=== PATIENT | female | born 1955 | race Caucasian/White ===

== ENCOUNTER 2022-05-14 14:21 | Inpatient (IN) ==
[2022-05-14] MEDS ORDERED: PIPERACILLIN/TAZOBACTAM 4.5 GM/120 ML BAG IV ONE (15:01)
[2022-05-14] MEDS ORDERED: VANCOMYCIN HCL 2,000 MG in SODIUM CHLORIDE 0.9% 500 ML IV ONE (15:01)
[2022-05-14] MEDS ORDERED: VANCOMYCIN CONSULT ACTIVE PRN (15:01)
--- NOTE | 2022-05-14 15:13 | Emergency Department Note ---
Impression & Plan Osteomyelitis, Decubitus ulcer of sacral area, Acute hyponatremia, End-stage renal disease (ESRD) ED Provider Note NAME: DARRELL ZHU AGE: 66 SEX: F : 1955 ARRIVES VIA: Ambulance INFORMANT: Patient, ED PROVIDER(S): Jesus Andersen DO CHIEF COMPLAINT: Weakness HPI: The patient is a 66-year-old female who presented to the emergency department for an evaluation of sacral pain. The patient has a history of osteomyelitis of her sacrum and coccyx. She was treated initially locally but then transferred to [facility]. The patient returns today because of ongoing symptoms and worsening symptoms. She does have a history of renal failure and receives dialysis. She denies having any vomiting. She describes no abdominal pain. She has had no recent trauma but states she has generalized weakness. She does have a history of an ostomy. She notices no blood in her ostomy bag. She has not been seen by her family doctor recently. She states symptoms are moderate to severe. She has been receiving IV antibiotics 3 times a week. ROS: See above HPI for pertinent positives & negatives. A total of 10 systems reviewed and were otherwise negative. PAST MEDICAL HISTORY: See Below PAST SURGICAL HISTORY: See Below FAMILY HISTORY: See Below SOCIAL HISTORY: See Below HOME MEDICATIONS: See Below ALLERGIES: See Below VITALS: See Below PHYSICAL EXAMINATION: GENERAL: Patient is awake and alert. The patient is somewhat anxious appearing. EYES: The conjunctivae are clear. The pupils are round and reactive. EARS, NOSE, MOUTH AND THROAT: The nose is without any evidence of any deformity. NECK: The neck is nontender and supple. RESPIRATORY: Normal respiratory effort is noted there is no evidence of wheezing rhonchi or rales CARDIOVASCULAR: Regular rate and rhythm noted there no murmurs rubs or gallops normal S1 normal S2. GASTROINTESTINAL: The abdomen is soft. Abdomen is nontender. MUSCULOSKELETAL/EXTREMITIES: There is no evidence of gross deformity full range of motion is noted in the hips and shoulders. SKIN: Skin is warm and dry. There is pedal edema bilaterally. There is a dressing over the sacrum. When removed this reveals a very deep and necrotic appearing sacral decubitus. NEUROLOGIC: Patient is awake alert and oriented x3 MEDICAL DECISION MAKING: The patient is a 66-year-old female who presented to the emergency department for an evaluation of sacral pain. The patient has a history of end-stage renal disease requiring dialysis but also has a history of sacral decubitus ulcer and underlying osteomyelitis. She was treated with IV antibiotics at [facility]. She was discharged to home. She was receiving IV antibiotics 3 times a week. She states her symptoms are worsening. She presented with hypotension. She was treated with a small fluid bolus and IV antibiotics in emergency department. I discussed the patient's laboratory and radiographic studies with her. [facility]. They have agreed to evaluate the patient in the emergency department for further management and disposition. Triage Nursing notes reviewed. Prior medical records reviewed Vital Signs: reviewed and remarkable for hypotension and tachycardia. Differential diagnosis: Cellulitis, abscess, MRSA infection, DVT, necrotizing fasciitis, dermatitis, d rug eruption, allergic reaction, as well as other pathologies. ER treatment provided: See below Diagnostics interpreted by me: ECG: EKG was obtained in the emergency department. My interpretation is sinus tachycardia 109 bpm. Left bundle branch block pattern was noted. There were no PVCs. This was compared to a tracing from November 17, 2014. The bundle branch is new compared to the earlier tracing. Cardiac Monitoring: An order was placed for continuous cardiac monitoring. The monitor shows a rate of 105 bpm with sinus tachycardia. Laboratory studies: As stated above and show below. Imaging studies: See below Consultation(s): I discussed this case with Barbara who is on-call for the [facility] hospitalist group. Discussed this case with Claudia who is on-call for the general surgical group. ED COURSE: Procedures: none Critical Care: I have personally spent greater than 35 minutes of critical care time in the direct management of this patient. This includes bedside care, interpretation of diagnostic studies, and testing, discussion with consultants, patient, and family members, and other required patient management activities. This 35 minutes is in excess of all separately billable procedures. Past Med/Surg History Medical History Accelerating angina Anemia due to stage 5 chronic kidney disease treated with erythropoietin Atherosclerosis of [place] arteries of extremities with rest pain, left leg Cancer of anorectal junction Cat bite of left forearm Cervical cancer Chronic lower GI bleeding Chronic radiation dermatitis Chronic stable angina CKD (chronic kidney disease) stage 5, GFR less than 15 ml/min CKD, patient preferred treatment modality in-center hemodialysis Closed fracture of phalanx of left fifth toe Colonic polyp Coronary artery disease Demand ischemia of myocardium DM type 2 with diabetic peripheral neuropathy Encounter for colorectal cancer screening 02/10/07 ESRD (end stage renal disease) on dialysis Heart failure with preserved ejection fraction, borderline, class II History of treatment of incomplete miscarriage x3 History of hyperbaric oxygen therapy 07/2011, 11/2011, 60 treatments. History of rectal or anal cancer HTN (hypertension) Hx of barium enema Hx of mammogram Hyperlipidemia Hyperparathyroidism Hyponatremia Hypothyroidism Injection of surface of both eyes Injection of eye drug, Lucentis 0.3mg by Dr. Taveras Iron deficiency anemia due to chronic blood loss Major depressive disorder Melanoma of back Myocardial infarction Non-compliance Other pancytopenia PAD (peripheral artery disease) Proliferative diabetic retinopathy of both eyes without macular edema associated with diabetes mellitus due to underlying condition Radiation proctitis Retinal edema Retinal lesion S/P arteriogram of extremity Thrombocytopenia Type 2 diabetes mellitus Uncontrolled type 2 diabetes mellitus with retinopathy of left eye, with long- term current use of insulin Uterine cancer Vitreous hemorrhage of right eye Surgical History H/O cataract removal with insertion of prosthetic lens H/O colonoscopy adhesions and radiation colitis precluded advancing scope through the sigmoid. Exam discontinued. H/O eye surgery partial removal of eye fluid, bilateral H/O laparoscopy appendectomy History of breast surgery left breast, 1982 History of insertion of tunneled central venous catheter (CVC) with port History of revascularization procedure of lower extremity Hx of angioplasty Hx of biopsy benign right breast biopsy about 20 years ago. Hx of colonoscopy 08/31/2017, multiple colonic angioectasias from prior radiation/narrowed and scarred left colon from multiple prior surgeries/colonoscopy flexible proximal diagnositic performed by Chandler Gill. S/P laser trabeculoplasty of eye S/P tonsillectomy Status post total abdominal hysterectomy Social History Smoking Status: Never smoker Hx Alcohol Use: No Hx Substance Use: No Preferred Language: Slovenian Communication Ability: Effective Beliefs That Will Affect Care: None marital status: Current Living Situation: Family current occupational status: employed current occupation: has own salon How many Children do You have: 1 How many Children do You have Comment: special needs child Feels Safe at Home: Yes caffeine: No Allergies Allergies Allergy/AdvReac Type Severity Reaction Status Date / Time cephalexin Allergy Unknown HIVES Verified 02/15/22 11:16 fluorescein Allergy Unknown EYE Verified 02/15/22 11:16 SWELLING AND THROAT SWELLING lisinopril Allergy Unknown "CHOKING" Verified 02/15/22 11:16 meperidine Allergy Unknown NAUSEA Verified 02/15/22 11:16 Penicillins Allergy Unknown Rash Verified 05/14/22 15:16 Home Meds Home Medications Medication Instructions Recorded Confirmed acetaminophen 650 mg 650 mg PO Q8H 02/15/22 02/15/22 tablet,extended release (Tylenol Arthritis Pain) atorvastatin 40 mg tablet 40 mg PO DAILY 02/15/22 02/15/22 brimonidine 0.2 %-timolol 0.5 % 1 drp ophthalmic (eye) BID 02/15/22 02/15/22 eye drops (Combigan) dulaglutide 0.75 mg/0.5 mL mg subcut .weekly 02/15/22 02/15/22 subcutaneous pen injector ([facility]) furosemide 80 mg tablet 80 mg PO DAILY 02/15/22 02/15/22 gabapentin 300 mg capsule 300 mg PO DAILY 02/15/22 02/15/22 hydroxyzine HCl 10 mg tablet 10 mg PO TID PRN 02/15/22 02/15/22 insulin aspart U-100 100 unit/mL 1 sliding scale dose subcut 02/15/22 02/15/22 subcutaneous solution (Novolog USEASDIRECTD U-100 Insulin aspart) insulin glargine 100 unit/mL (3 42 unit subcut DAILY 02/15/22 02/15/22 mL) subcutaneous pen (Basaglar KwikPen U-100 Insulin) latanoprost 0.005 % eye drops 1 drp ophthalmic (eye) QPM 02/15/22 02/15/22 levothyroxine 137 mcg capsule 137 mcg PO DAILY 02/15/22 02/15/22 mesalamine 1,000 mg rectal MO 02/15/22 02/15/22 suppository metoprolol succinate 25 mg 25 mg PO DAILY 02/15/22 02/15/22 tablet,extended release 24 hr nitroglycerin 0.4 mg sublingual 0.4 mg sublingual Q5M PRN 02/15/22 02/15/22 tablet omeprazole 20 mg capsule,delayed 20 mg PO DAILY 02/15/22 02/15/22 release ondansetron 4 mg disintegrating 4 mg PO PRN 02/15/22 02/15/22 tablet ropinirole 0.25 mg tablet 0.25 mg PO .QHS 02/15/22 02/15/22 Previous Rx's Medication Instructions Recorded collagenase clostridium histo. 250 1 applic topical DAILY #90 grams 02/15/22 unit/gram topical ointment (Santyl) Results & Data (ED) Vital Signs Vital Signs - 24 hr 05/14/22 14:35 05/14/22 15:14 05/14/22 15:14 Temperature 36.6 C Temperature Source Oral Pulse Rate 110 H 110 H Pulse Rate from SpO2 Sensor Pulse Rhythm Regular Irregular Pulse Strength Normal Respiratory Rate 18 20 Respiratory Effort / Characteristics Non-Labored Non-Labored Respiratory Depth Normal Respiratory Pattern Regular Blood Pressure 97/57 L Blood Pressure Mean 70 Pulse Oximetry 89 L 96 Oxygen Delivery Method Room Air Nasal Cannula Oxygen Flow Rate 0 2 Sepsis Recent Fever Within 48 Hours No Sepsis New/Unexplained Change in Mental Status N/A Sepsis Action Taken by Nursing No Action Required 05/14/22 14:50 05/14/22 15:00 05/14/22 15:10 Temperature Temperature Source Pulse Rate 110 H 109 H 109 H Pulse Rate from SpO2 Sensor 110 H 109 H 109 H Pulse Rhythm Pulse Strength Respiratory Rate 17 18 18 Respiratory Effort / Characteristics Respiratory Depth Respiratory Pattern Blood Pressure Blood Pressure Mean Pulse Oximetry 89 L 96 98 Oxygen Delivery Method Oxygen Flow Rate Sepsis Recent Fever Within 48 Hours Sepsis New/Unexplained Change in Mental Status Sepsis Action Taken by Nursing 05/14/22 15:20 05/14/22 15:30 05/14/22 15:40 Temperature Temperature Source Pulse Rate 111 H 108 H 107 H Pulse Rate from SpO2 Sensor 111 H 108 H 107 H Pulse Rhythm Pulse Strength Respiratory Rate 20 15 17 Respiratory Effort / Characteristics Respiratory Depth Respiratory Pattern Blood Pressure Blood Pressure Mean Pulse Oximetry 100 99 100 Oxygen Delivery Method Oxygen Flow Rate Sepsis Recent Fever Within 48 Hours Sepsis New/Unexplained Change in Mental Status Sepsis Action Taken by Nursing 05/14/22 15:50 05/14/22 16:00 05/14/22 16:10 Temperature Temperature Source Pulse Rate 106 H 106 H 105 H Pulse Rate from SpO2 Sensor 105 H 107 H 105 H Pulse Rhythm Pulse Strength Respiratory Rate 18 16 16 Respiratory Effort / Characteristics Respiratory Depth Respiratory Pattern Blood Pressure 100/66 Blood Pressure Mean 77 Pulse Oximetry 100 100 100 Oxygen Delivery Method Oxygen Flow Rate Sepsis Recent Fever Within 48 Hours Sepsis New/Unexplained Change in Mental Status Sepsis Action Taken by Long Term Medications Current Medication List: was personally reviewed by me Laboratory Data Attestation: I reviewed the patient's lab results. Result diagrams: 05/14/22 14:25 05/14/22 14:25 Lab Results 05/14/22 05/14/22 05/14/22 Range/Units 14:25 14:25 14:25 WBC 13.01 H (4.8-10.8) K/ul RBC 2.91 L (3.93-5.22) M/uL Hgb 8.8 L (12.0-16.0) g/dl Hct 27.7 L (34.1-44.9) % MCV 95.2 (80.0-100.0) fL MCH 30.2 (25.0-34.0) pg MCHC 31.8 L (32.0-36.0) g/dL RDW Std Deviation 78.8 H (36.4-46.3) fL RDW Coeff of Josh 23.3 H (11.5-14.5) % Plt Count 104 L (130-400) K/uL MPV 10.7 (9.4-12.3) fL Immature Gran % (Auto) 1.2 % Neut % (Auto) 84.5 % Lymph % (Auto) 7.5 % [place] % (Auto) 5.8 % Eos % (Auto) 0.6 % Baso % (Auto) 0.4 % Neut # (Auto) 11.00 H (1.4-6.5) K/uL Lymph # (Auto) 0.97 L (1.2-3.4) K/uL [place] # (Auto) 0.75 (0.24-0.82) K/uL Eos # (Auto) 0.08 (0-0.50) K/uL Baso # (Auto) 0.05 (0-0.2) K/uL Immature Gran # (Auto) 0.16 H (0.00-0.02) K/uL Absolute Nucleated RBC 0.03 H (0-0) K/uL Nucleated RBC % (auto) 0.2 % Polychromasia 1+ Anisocytosis Present Macrocytosis Present Tear Drop Cells 1+ Echinocytes 1+ PT 19.3 H (9.0-12.0) Seconds INR 1.9 H (0.9-1.1) APTT 44.6 H (21.0-31.0) Seconds PTT Ratio 1.6 Sodium 127 L (136-145) mmol/L Potassium 5.1 (3.5-5.1) mmol/L Chloride 94 L (98-107) mmol/L Carbon Dioxide 22 (21-32) mmol/L Anion Gap 11 (3-11) BUN 22 (6-23) mg/dl Creatinine 3.89 H (0.6-1.2) mg/dl Est Cr Clr Drug Dosing 14.9 ml/min Est GFR ( Amer) 13.1 ml/min Est GFR (Non-Af Amer) 11.3 ml/min BUN/Creatinine Ratio 5.7 L (10-20) Glucose 269 H (70-99(Fasting)) mg/dl Calcium 8.2 L (8.5-10.1) mg/dl Magnesium 1.8 (1.7-2.4) mg/dl Total Bilirubin 1.1 H (0.2-1.0) mg/dl AST 63 H (13-39) U/L ALT 21 (7-52) U/L Alkaline Phosphatase 482 H (34-104) U/L Troponin I High Sens 35.4 H (0-14) pg/ml Total Protein 5.8 L (6.0-8.3) gm/dl Albumin 2.1 L (3.4-5.0) gm/dl Globulin 3.7 (2.5-4.0) gm/dl Albumin/Globulin Ratio 0.6 L (0.9-2) Procalcitonin (0-0.5) ng/ml 05/14/22 Range/Units 14:25 WBC (4.8-10.8) K/ul RBC (3.93-5.22) M/uL Hgb (12.0-16.0) g/dl Hct (34.1-44.9) % MCV (80.0-100.0) fL MCH (25.0-34.0) pg MCHC (32.0-36.0) g/dL RDW Std Deviation (36.4-46.3) fL RDW Coeff of Josh (11.5-14.5) % Plt Count (130-400) K/uL MPV (9.4-12.3) fL Immature Gran % (Auto) % Neut % (Auto) % Lymph % (Auto) % [place] % (Auto) % Eos % (Auto) % Baso % (Auto) % Neut # (Auto) (1.4-6.5) K/uL Lymph # (Auto) (1.2-3.4) K/uL [place] # (Auto) (0.24-0.82) K/uL Eos # (Auto) (0-0.50) K/uL Baso # (Auto) (0-0.2) K/uL Immature Gran # (Auto) (0.00-0.02) K/uL Absolute Nucleated RBC (0-0) K/uL Nucleated RBC % (auto) % Polychromasia Anisocytosis Macrocytosis Tear Drop Cells Echinocytes PT (9.0-12.0) Seconds INR (0.9-1.1) APTT (21.0-31.0) Seconds PTT Ratio Sodium (136-145) mmol/L Potassium (3.5-5.1) mmol/L Chloride (98-107) mmol/L Carbon Dioxide (21-32) mmol/L Anion Gap (3-11) BUN (6-23) mg/dl Creatinine (0.6-1.2) mg/dl Est Cr Clr Drug Dosing ml/min Est GFR ( Amer) ml/min Est GFR (Non-Af Amer) ml/min BUN/Creatinine Ratio (10-20) Glucose (70-99(Fasting)) mg/dl Calcium (8.5-10.1) mg/dl Magnesium (1.7-2.4) mg/dl Total Bilirubin (0.2-1.0) mg/dl AST (13-39) U/L ALT (7-52) U/L Alkaline Phosphatase (34-104) U/L Troponin I High Sens (0-14) pg/ml Total Protein (6.0-8.3) gm/dl Albumin (3.4-5.0) gm/dl Globulin (2.5-4.0) gm/dl Albumin/Globulin Ratio (0.9-2) Procalcitonin 6.68 H (0-0.5) ng/ml Administered Medications Daptomycin 400 mg/ Syringe 8 mls @ 4 mls/min IV Q24H ROSA M; Protocol Stop: 05/16/22 15:14 Last Admin: 05/14/22 16:07 Dose: 4 mls/min Documented By: ELIZABETH Discontinued Medications Piperacillin Sod/Tazobactam Sod (Zosyn) 4.5 gm in 120 mls @ 240 mls/hr IV NOW ONE Stop: 05/14/22 15:30 Last Admin: 05/14/22 16:07 Dose: 240 mls/hr Documented By: ELIZABETH Imaging Data Radiologist's Impression: Abdomen/Pelvis CT 05/14/22 14:58 CT abd pelvis wo con CLINICAL HISTORY: sacral wound TECHNIQUE: Helical axial images of the abdomen and pelvis were obtained. Automated dose lowering techniques and/or adjustment according to patient size were utilized for this exam. This exam was performed without intravenous contrast. CT DOSE: 840.85 mGy.cm COMPARISON: None available at the time of this dictation. FINDINGS: Lower chest: Bilateral pleural effusions are seen with underlying atelectasis. Cardiomegaly is seen. Three-vessel atherosclerosis is seen in the coronaries. Liver: Unremarkable. No focal lesions are seen. Gallbladder and biliary tree: No calcified gallstones. Normal caliber wall. No intra- or extrahepatic biliary ductal dilation. Pancreas: Unremarkable, no focal lesions. Spleen: Calcifications are noted in the spleen compatible with prior granulomatous disease. Adrenals: Unremarkable. Kidneys and ureters: Perinephric stranding is noted bilaterally. Bladder: Limited evaluation due to underdistention. Reproductive organs: Patient is status post hysterectomy. Bowel: A double barreled colostomy is noted in the right lower quadrant. Patient is status post appendectomy. Lymph nodes Retroperitoneal: Unremarkable. Pelvic: Unremarkable. Mesenteric: Unremarkable. Peritoneum: Mild ascites is seen. Vessels: Atherosclerotic calcifications are seen. Abdominal wall: Prominent body wall edema is seen. There is a large sacral ulcer which extends to the bone and has significant surrounding swelling. Bones: There is erosion of the distal sacrum with a few bony fragments noted. Degenerative changes are seen elsewhere in the skeleton. IMPRESSION: 1. Large sacral ulcer with erosion of the sacral bone, underlying osteomyelitis is likely. 2. Mild ascites and prominent body wall edema. 3. Bilateral pleural effusions with associated atelectasis. Cardiomegaly. 4. Additional findings as above. ACT 112: Negative or not required by law. Electronically signed by: Eriberto Wiley M.D. 05/14/2022 3:43 PM Chest X-Ray 05/14/22 14:58 XR chest 1V portable CLINICAL HISTORY: SEPSIS TECHNIQUE: Single frontal radiograph of the chest was obtained. Comparison: Comparison is made to chest radiograph 11/17/2014 FINDINGS: Right venous catheter is seen with the tip at the cavoatrial junction. The cardiomediastinal silhouette is obscured. Multifocal airspace opacities are seen. No pneumothorax is seen, pleural effusions cannot be excluded. IMPRESSION: Multifocal airspace opacities may represent atelectasis, pneumonia, and/or aspiration. Bilateral small pleural effusions cannot be excluded. ACT 112: Negative or not required by law. Electronically signed by: Eriberto Wiley M.D. 05/14/2022 4:10 PM Discharge Plan Visit Data Chief Complaint: Wound ED Provider: Jesus Andersen Discharge Problem: Osteomyelitis, Decubitus ulcer of sacral area, Acute hyponatremia, End-stage renal disease (ESRD) Patient Disposition: Being Evaluated by Hospitalist Forms Stand Alone Forms: My [facility] [employer] Prescriptions Prescriptions: No Action David Daugherty U-100 Insulin 100 unit/mL (3 mL) insulin pen 42 unit subcut DAILY brimonidine-timolol [Combigan] 0.2-0.5 % drops 1 drp ophthalmic (eye) BID atorvastatin 40 mg tablet 40 mg PO DAILY furosemide 80 mg tablet 80 mg PO DAILY gabapentin 300 mg capsule 300 mg PO DAILY hydroxyzine HCl 10 mg tablet 10 mg PO TID PRN latanoprost 0.005 % drops 1 drp ophthalmic (eye) QPM levothyroxine 137 mcg capsule 137 mcg PO DAILY mesalamine 1,000 mg suppository MO metoprolol succinate 25 mg tablet extended release 24 hr 25 mg PO DAILY nitroglycerin 0.4 mg tablet, sublingual 0.4 mg sublingual Q5M PRN Rx Instructions: do not exceed 3 doses per episode insulin aspart U-100 [Novolog U-100 Insulin aspart] 100 unit/mL solution 1 sliding scale dose subcut USEASDIRECTD omeprazole 20 mg capsule,delayed release(DR/EC) 20 mg PO DAILY ondansetron 4 mg tablet,disintegrating 4 mg PO PRN ropinirole 0.25 mg tablet 0.25 mg PO .QHS Trulicity 0.75 mg/0.5 mL pen injector subcut .weekly acetaminophen [Tylenol Arthritis Pain] 650 mg tablet extended release 650 mg PO Q8H Santyl 250 unit/gram ointment 1 applic topical DAILY Qty: 90 1RF Rx Instructions: apply to deep wounds daily Referrals Referrals: Jona Taveras DO [Outside Practitioners] - : Osteomyelitis Qualifiers: Osteomyelitis type: unspecified type Osteomyelitis location: unspecified site Qualified Code(s): M86.9 - Osteomyelitis, unspecified Decubitus ulcer of sacral area Qualifiers: Pressure injury stage: stage 4 Qualified Code(s): L89.154 - Pressure ulcer of sacral region, stage 4
[2022-05-14] MEDS ORDERED: DAPTOmycin 400 MG in SYRINGE 0 ML IV SCH (15:15)
[2022-05-14 15:31] LABS: INR 1.9 (0.9-1.1); Partial Thromboplastin Ratio 1.6; Partial Thromboplastin Time 44.6 Seconds (21.0-31.0); Prothrombin Time 19.3 Seconds (9.0-12.0)
--- NOTE | 2022-05-14 15:46 | CT Scan Report ---
CT abd pelvis wo con CLINICAL HISTORY: sacral wound TECHNIQUE: Helical axial images of the abdomen and pelvis were obtained. Automated dose lowering tech niques and/or adjustment according to patient size were utilized for this exam. This exam was perfor med without intravenous contrast. CT DOSE: 840.85 mGy.cm COMPARISON: None available at the time of this dictation. FINDINGS: Lower chest: Bilateral pleural effusions are seen with underlying atelectasis. Cardiomegaly is seen. Three-vessel atherosclerosis is seen in the coronaries. Liver: Unremarkable. No focal lesions are seen. Gallbladder and biliary tree: No calcified gallstones. Normal caliber wall. No intra- or extrahepatic biliary ductal dilation. Pancreas: Unremarkable, no focal lesions. Spleen: Calcifications are noted in the spleen compatible with prior granulomatous disease. Adrenals: Unremarkable. Kidneys and ureters: Perinephric stranding is noted bilaterally. Bladder: Limited evaluation due to underdistention. Reproductive organs: Patient is status post hysterectomy. Bowel: A double barreled colostomy is noted in the right lower quadrant. Patient is status post appen dectomy. Lymph nodes Retroperitoneal: Unremarkable. Pelvic: Unremarkable. Mesenteric: Unremarkable. Peritoneum: Mild ascites is seen. Vessels: Atherosclerotic calcifications are seen. Abdominal wall: Prominent body wall edema is seen. There is a large sacral ulcer which extends to the bone and has significant surrounding swelling. Bones: There is erosion of the distal sacrum with a few bony fragments noted. Degenerative changes ar e seen elsewhere in the skeleton. IMPRESSION: 1. Large sacral ulcer with erosion of the sacral bone, underlying osteomyelitis is likely. 2. Mild ascites and prominent body wall edema. 3. Bilateral pleural effusions with associated atelectasis. Cardiomegaly. 4. Additional findings as above. ACT 112: Negative or not required by law. Electronically signed by: Eriberto Wiley M.D. 05/14/2022 3:43 PM
[2022-05-14 15:47] LABS: Hematocrit (blood only) 27.7 % (34.1-44.9); Hemoglobin 8.8 g/dl (12.0-16.0); Mean Corpuscular Hemoglobin 30.2 pg (25.0-34.0); Mean Corpuscular Hgb Conc 31.8 g/dL (32.0-36.0); Mean Corpuscular Volume 95.2 fL (80.0-100.0); Mean Platelet Volume 10.7 fL (9.4-12.3); Nucleated RBC # (auto) 0.03 K/uL (0-0); Nucleated RBC % (auto) 0.2 %; Platelet Count 104 K/uL (130-400); RDW Coefficient of Variation 23.3 % (11.5-14.5); RDW Standard Deviation 78.8 fL (36.4-46.3); Red Blood Count 2.91 M/uL (3.93-5.22); White Blood Count 13.01 K/ul (4.8-10.8)
[2022-05-14 15:48] LABS: Anisocytosis Present; Basophils # (auto) 0.05 K/uL (0-0.2); Basophils % (auto) 0.4 %; Echinocytes 1+; Eosinophils # (auto) 0.08 K/uL (0-0.50); Eosinophils % (auto) 0.6 %; Immature Granulocytes # (auto) 0.16 K/uL (0.00-0.02); Immature Granulocytes % (auto) 1.2 %; Lymphocytes # (auto) 0.97 K/uL (1.2-3.4); Lymphocytes % (auto) 7.5 %; Macrocytosis Present; Monocytes # (auto) 0.75 K/uL (0.24-0.82); Monocytes % (auto) 5.8 %; Neutrophils % (auto) 84.5 %; Polychromasia 1+; Tear Drop Cells 1+
[2022-05-14 15:58] LABS: Albumin Globulin Ratio 0.6 (0.9-2); Albumin Level 2.1 gm/dl (3.4-5.0); BUN Creatinine Ratio 5.7 (10-20); Bilirubin,Total 1.1 mg/dl (0.2-1.0); Calcium 8.2 mg/dl (8.5-10.1); Creatinine Clr Calc Pharmacy 14.9 ml/min; Est GFR (African American) 13.1 ml/min; Est GFR (Non-African American) 11.3 ml/min; Globulin 3.7 gm/dl (2.5-4.0); Magnesium 1.8 mg/dl (1.7-2.4); Potassium 5.1 mmol/L (3.5-5.1); Total Protein 5.8 gm/dl (6.0-8.3)
[2022-05-14 16:03] LABS: Troponin I High Sensitivity 35.4 pg/ml (0-14)
--- NOTE | 2022-05-14 16:12 | XRay Report ---
XR chest 1V portable CLINICAL HISTORY: SEPSIS TECHNIQUE: Single frontal radiograph of the chest was obtained. Comparison: Comparison is made to chest radiograph 11/17/2014 FINDINGS: Right venous catheter is seen with the tip at the cavoatrial junction. The cardiomediastinal silhouet te is obscured. Multifocal airspace opacities are seen. No pneumothorax is seen, pleural effusions ca nnot be excluded. IMPRESSION: Multifocal airspace opacities may represent atelectasis, pneumonia, and/or aspiration. Bilateral smal l pleural effusions cannot be excluded. ACT 112: Negative or not required by law. Electronically signed by: Eriberto Wiley M.D. 05/14/2022 4:10 PM
[2022-05-14] MEDS ORDERED: SODIUM CHLORIDE 0.9% 1000ML 500 ML IV ONE (16:18)
--- NOTE | 2022-05-14 17:58 | Surgery Consultation ---
Date of Consultation May 14, 2022 Assessment & Plan (1) Ulcer of sacral region, stage 4: See plans below (2) Decubitus ulcer of sacral area: This is a 66y F with a PMH of ESRD on HD 3x/wk, anorectal ca s/p chemo/radiation, DM, hypothyroid, who presents to the [facility] on 05/14/22 with c omplaints of worsening buttocks wound. [place] [facility] [place] where she likely underwent debridement of wound and possible diverting colostomy. She left there AMA 3 days ago. Today she underwent a CT a/p that revealed large sacral ulcer with erosion of the sacral bone, underlying osteomyelitis is likely. WBC 13. Wound was evaluated and has a moderate amount of foul smelling drainage with central eschar. Recommend wound care consult for evaluation. If they are unable to see her over the wknd recommend daily dressing changes with santyl in the wound daily, can pack with wet-dry 4x4 gauze or kerlex. Continue on IV abx...may want to see if can get [place] culture [place] [facility] [place] We will see how wound fairs with chemical debridement with Santyl over the wknd prior to consideration of surgical intervention. With her past medical history it will be difficult for her to heal this wound. Patient was seen/examined with Dr. Baldwin. (3) Osteomyelitis: Supervising Physician Co-Signing Physician Notes As per Claudia Thomas physician psychological assistant Patient had a stage IV pressure ulceration of the coccyx Not sure exactly when it was debrided in [place] those records are not available at this time Patient has significant amount of eschar and ulceration with thick fibrinous slough overlying the central portion of the ulceration which seems to extend 8 cm x 6 cm irregular borders and the eschar is any superior right with dimensions of 3 to 4 cm The periwound shows some erythema and some skin excoriation around the buttocks and the ulceration She has purulent drainage with odor At this point we will institute Santyl daily application the hope of softening up some of the eschar causing chemical debridement of the ulceration . The patient will need the ulceration debrided in the operating room and eventually place a VAC system we will have the medical service see her in anticipation of the above plans which we will plan to do debridement in the OR day after she has a dialysis At this time she will have broad-spectrum antibiotics History of Present Illness History of Present Illness This is a 66y F with a PMH of ESRD on HD 3x/wk, anorectal ca s/p chemo/radiation, DM, hypothyroid, who presents to the [facility] ED on 05/14/22 with complaints of worsening buttocks wound. Of note patient is a poor historian and some history obtained via providers and chart review. It appears patient was [place] [facility] [place]28[place]11 for worsening sacral wound. She tells me the wound has been present over the last 3 months and has been worsening. She says she underwent debridement "with removal of coccyx" and unclear on timing if she also had a diverting colostomy during that same admission? Per providers she left AMA as she was unhappy with their care. Unclear if she was receiving IV abx at home over the last 3 days. For her anorectal cancer patient said it was diagnosed 18 years ago and she never underwent surgery, but did have chemo/radiation. She says her buttock wound is foul smelling and proctor. Allergies Allergy/AdvReac Type Severity Reaction Status Date / Time cephalexin Allergy Unknown HIVES Verified 02/15/22 11:16 fluorescein Allergy Unknown EYE Verified 02/15/22 11:16 SWELLING AND THROAT SWELLING lisinopril Allergy Unknown "CHOKING" Verified 02/15/22 11:16 meperidine Allergy Unknown NAUSEA Verified 02/15/22 11:16 Penicillins Allergy Unknown Rash Verified 05/14/22 15:16 Home Medications Medication Instructions Recorded Confirmed Type acetaminophen 650 mg 650 mg PO Q8H 02/15/22 02/15/22 History tablet,extended release (Tylenol Arthritis Pain) atorvastatin 40 mg tablet 40 mg PO DAILY 02/15/22 02/15/22 History brimonidine 0.2 %-timolol 0.5 % 1 drp ophthalmic (eye) BID 02/15/22 02/15/22 History eye drops (Combigan) collagenase clostridium histo. 250 1 applic topical DAILY #90 grams 02/15/22 02/15/22 Rx unit/gram topical ointment (Santyl) dulaglutide 0.75 mg/0.5 mL mg subcut .weekly 02/15/22 02/15/22 [facility] furosemide 80 mg tablet 80 mg PO DAILY 02/15/22 02/15/22 History gabapentin 300 mg capsule 300 mg PO DAILY 02/15/22 02/15/22 History hydroxyzine HCl 10 mg tablet 10 mg PO TID PRN 02/15/22 02/15/22 History insulin aspart U-100 100 unit/mL 1 sliding scale dose subcut 02/15/22 02/15/22 History subcutaneous solution (Novolog USEASDIRECTD U-100 Insulin aspart) insulin glargine 100 unit/mL (3 42 unit subcut DAILY 02/15/22 02/15/22 History mL) subcutaneous pen (Basaglar KwikPen U-100 Insulin) latanoprost 0.005 % eye drops 1 drp ophthalmic (eye) QPM 02/15/22 02/15/22 History levothyroxine 137 mcg capsule 137 mcg PO DAILY 02/15/22 02/15/22 History mesalamine 1,000 mg rectal TX 02/15/22 02/15/22 History suppository metoprolol succinate 25 mg 25 mg PO DAILY 02/15/22 02/15/22 History tablet,extended release 24 hr nitroglycerin 0.4 mg sublingual 0.4 mg sublingual Q5M PRN 02/15/22 02/15/22 History tablet omeprazole 20 mg capsule,delayed 20 mg PO DAILY 02/15/22 02/15/22 History release ondansetron 4 mg disintegrating 4 mg PO PRN 02/15/22 02/15/22 History tablet ropinirole 0.25 mg tablet 0.25 mg PO .QHS 02/15/22 02/15/22 History Patient History Medical History Accelerating angina Anemia due to stage 5 chronic kidney disease treated with erythropoietin Atherosclerosis of [place] arteries of extremities with rest pain, left leg Cancer of anorectal junction Cat bite of left forearm Cervical cancer Chronic lower GI bleeding Chronic radiation dermatitis Chronic stable angina CKD (chronic kidney disease) stage 5, GFR less than 15 ml/min CKD, patient preferred treatment modality in-center hemodialysis Closed fracture of phalanx of left fifth toe Colonic polyp Coronary artery disease Demand ischemia of myocardium DM type 2 with diabetic peripheral neuropathy Encounter for colorectal cancer screening 02/10/07 ESRD (end stage renal disease) on dialysis Heart failure with preserved ejection fraction, borderline, class II History of treatment of incomplete miscarriage x3 History of hyperbaric oxygen therapy 07/2011, 11/2011, 60 treatments. History of rectal or anal cancer HTN (hypertension) Hx of barium enema Hx of mammogram Hyperlipidemia Hyperparathyroidism Hyponatremia Hypothyroidism Injection of surface of both eyes Injection of eye drug, Lucentis 0.3mg by Dr. Taveras Iron deficiency anemia due to chronic blood loss Major depressive disorder Melanoma of back Myocardial infarction Non-compliance Other pancytopenia PAD (peripheral artery disease) Proliferative diabetic retinopathy of both eyes without macular edema associated with diabetes mellitus due to underlying condition Radiation proctitis Retinal edema Retinal lesion S/P arteriogram of extremity Thrombocytopenia Type 2 diabetes mellitus Uncontrolled type 2 diabetes mellitus with retinopathy of left eye, with long- term current use of insulin Uterine cancer Vitreous hemorrhage of right eye Surgical History H/O cataract removal with insertion of prosthetic lens H/O colonoscopy adhesions and radiation colitis precluded advancing scope through the sigmoid. Exam discontinued. H/O eye surgery partial removal of eye fluid, bilateral H/O laparoscopy appendectomy History of breast surgery left breast, 1982 History of insertion of tunneled central venous catheter (CVC) with port History of revascularization procedure of lower extremity Hx of angioplasty Hx of biopsy benign right breast biopsy about 20 years ago. Hx of colonoscopy 08/31/2017, multiple colonic angioectasias from prior radiation/narrowed and scarred left colon from multiple prior surgeries/colonoscopy flexible proximal diagnositic performed by Chandler Gill. S/P laser trabeculoplasty of eye S/P tonsillectomy Status post total abdominal hysterectomy Social History Smoking Status: Never smoker Hx Alcohol Use: No Hx Substance Use: No Preferred Language: [place] Communication Ability: Effective Beliefs That Will Affect Care: None marital status: Current Living Situation: Family current occupational status: employed current occupation: has own salon How many Children do You have: 1 How many Children do You have Comment: special needs child Feels Safe at Home: Yes caffeine: No Review of Systems Constitutional: + anorexia; no fever and no chills Gastrointestinal: + nausea and + vomiting Musculoskeletal: + burning and pain to buttock wound Physical Exam Physical Exam: awake Constitutional: no acute distress Gastrointestinal (Abdomen): Inspection/Auscultation: + abdominal surgical incision (midline with scant drainage); abdomen not distended Percussion/Palpation: abdomen soft; abdomen nontender + ostomy with stool in bag Skin: + wound to buttocks w/ moderate amount of foul smelling drainage and eschar Results & Data ([facility]) Vital Signs (Past 12 Hours) Vital Signs Temp Pulse Resp BP Pulse Ox O2 Del Method O2 Flow Rate 05/14/22 16:10 105 H 16 100 05/14/22 16:00 106 H 16 100/66 100 05/14/22 15:50 106 H 18 100 05/14/22 15:40 107 H 17 100 05/14/22 15:30 108 H 15 99 05/14/22 15:20 111 H 20 100 05/14/22 15:10 109 H 18 98 05/14/22 15:00 109 H 18 96 05/14/22 14:50 110 H 17 89 L 05/14/22 17:06 18 100 Room Air 05/14/22 15:14 110 H 20 96 Nasal Cannula 2 05/14/22 15:14 89 L Room Air 0 05/14/22 14:35 36.6 C 110 H 18 97/[address] abd pelvis wo con CLINICAL HISTORY: sacral wound TECHNIQUE: Helical axial images of the abdomen and pelvis were obtained. Automated dose lowering techniques and/or adjustment according to patient size were utilized for this exam. This exam was performed without intravenous contrast. CT DOSE: 840.85 mGy.cm COMPARISON: None available at the time of this dictation. FINDINGS: Lower chest: Bilateral pleural effusions are seen with underlying atelectasis. Cardiomegaly is seen. Three-vessel atherosclerosis is seen in the coronaries. Liver: Unremarkable. No focal lesions are seen. Gallbladder and biliary tree: No calcified gallstones. Normal caliber wall. No intra- or extrahepatic biliary ductal dilation. Pancreas: Unremarkable, no focal lesions. Spleen: Calcifications are noted in the spleen compatible with prior granulomatous disease. Adrenals: Unremarkable. Kidneys and ureters: Perinephric stranding is noted bilaterally. Bladder: Limited evaluation due to underdistention. Reproductive organs: Patient is status post hysterectomy. Bowel: A double barreled colostomy is noted in the right lower quadrant. Patient is status post appendectomy. Lymph nodes Retroperitoneal: Unremarkable. Pelvic: Unremarkable. Mesenteric: Unremarkable. Peritoneum: Mild ascites is seen. Vessels: Atherosclerotic calcifications are seen. Abdominal wall: Prominent body wall edema is seen. There is a large sacral ulcer which extends to the bone and has significant surrounding swelling. Bones: There is erosion of the distal sacrum with a few bony fragments noted. Degenerative changes are seen elsewhere in the skeleton. IMPRESSION: 1. Large sacral ulcer with erosion of the sacral bone, underlying osteomyelitis is likely. 2. Mild ascites and prominent body wall edema. 3. Bilateral pleural effusions with associated atelectasis. Cardiomegaly. 4. Additional findings as above. ACT 112: Negative or not required by law. Electronically signed by: Eriberto Wiley M.D. 05/14/2022 3:43 PM PG Care Time/CCT Total # of Minutes Spent Total Time Spent with Patient: Total time spent is greater than 50% in coordination of care (as documented) at patient's floor/unit and/or counseling patient: Coding Level of Care Code 23133 Initial Inpt Care Lvl 1 Diagnoses Ulcer of sacral region, stage 4 L98.429 Decubitus ulcer of sacral area L89.154 Pressure injury stage: stage 4 Osteomyelitis M86.9 Osteomyelitis location: unspecified site Osteomyelitis type: unspecified type (1) Decubitus ulcer of sacral area Pressure injury stage: stage 4 Qualified Code(s): L89.154 - Pressure ulcer of sacral region, stage 4 (2) Osteomyelitis Osteomyelitis location: unspecified site Osteomyelitis type: unspecified type Qualified Code(s): M86.9 - Osteomyelitis, unspecified
[2022-05-14] MEDS ORDERED: PHARMACY GLYCEMIC MGMT CONSULT PRN (18:25)
[2022-05-14] MEDS ORDERED: GLUCOSE 10 TAB/TUBE PO PRN (18:25)
[2022-05-14] MEDS ORDERED: GLUCAGON FOR INJ 1 MG VIAL SQ PRN (18:25)
[2022-05-14] MEDS ORDERED: CARBOHYDRATES FOR HYPOGLYCEMIA PO PRN (18:25)
[2022-05-14] MEDS ORDERED: GLUCOSE 40% GEL 15 GM TUBE PO PRN (18:25)
--- NOTE | 2022-05-14 19:18 | History & Physical Report ---
Date of Service May 14, 2022 Assessment & Plan (1) Sepsis: Plan: - patient with tachycardia, leukocytosis, lactic acidosis - source likely stage IV sacral ulcer with likely underlying osteomyelitis - broad spectrum abx - surgical consult - telemetry monitoring (2) Osteomyelitis: Plan: - 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 - received surgical debridement at [facility] with bone culture/biopsy - was on daptomycin there with 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 - tachycardia, leukocytosis, likely osteo on CT scan in ED - blood cultures drawn here - started on daptmycin in the ED - will continue daptomycin for now - will add cefepime and flagyl as culture data not readily available here - general surgery consulted - recommend chemical debridement with santyl - will eventually need surgical debridement in the OR and wound vac - telemetry monitoring for now Present on Admission?: Yes (3) Leukocytosis: Plan: - in the setting of sepsis - IV abx as above - trend WBC (4) Ulcer of sacral region, stage 4: Plan: - IV abx and surgical plan as above (5) Radiation necrosis of skin and subcutaneous: Plan: - see above (6) Acute hyponatremia: Plan: - likely due to sepsis and decrease po intake - unclear degree of acuity as no prior labs available at this time - hold IVF for now as patient is hemodynamically stable and is ESRD - trend Na - monitor on AM lab tomorrow (7) Lactic acidosis: Plan: - likely in the setting of sepsis - will trend to clearance - IV abx as above (8) End-stage renal disease (ESRD): Plan: - has been on HD for the past year, per patient - HD catheter in right chest - no evidence of infection at catheter site - renal consulted - normal schedule is MWF - no emergent indication for HD at this time (9) Diabetes: Plan: - on insulin at home - reportedly on Lantus ?42 units - will give 30 units lantus tonight - SSI per protocol - FSG AC+HS - diabetic diet (10) Hypothyroid: Plan: - will recheck TSH with AM labs - for now, continue home dose levothyroxine (11) Anemia: Plan: - chronic anemia in the setting of ESRD - was reportedly getting ?EPO injections with HD per Patient - no signs of active bleeding at thist saloni - Hgb 8.8 with unclear baseline but have record of 8.8 in 01/2022 - will monitor for now (12) Thrombocytopenia: Plan: - unclear chronicity - ?bone marrow suppression in the setting of sepsis, ESRD, chronical illness - no signs of bleeding - will monitor (13) Coagulopathy: Plan: - patient not on warfarin - in the setting of sepsis - will trend INR daily for now Plan DVT ppx: heparin SC Code Status: Full Code Eliot Saucedo MD Hospital Medicine History of Present Illness Chief Complaint: sacral wound infection Primary Care Provider: NO PCP The patient is a 66 year old woman with pmh rectal cancer s/p chemoradiation (~20 years ago), cervical/uterine cancer, h/o of chronic rectal bleeding s/p ostomy diversion (?11/2021), ESRD on HD (MWF), CAD s/p [place] 2016, HTN, DM2 on insulin who presented with ongoing sacral wound infection. She recently was at [facility] where they did a surgical debridement and took bone cultures/pathology and was started on Daptomycin MWF with HD. She then left AMA from [place] because they felt they were not getting good care there. She reports that since chemoradiation, she has had chronic rectal bleeding requiring frequent hospitalizations. She eventually developed a sacral wound and even tually had a diverting colostomy to help with wound healing, is what I gather from discussion with the patient and family at bedside. ([facility] record not readily available at this time) Reportedly, she was ambulatory until earlier this week around Tuesday or Tuesday, and now she is bedbound and deconditioned to the point that she is unable to ambulate. She does not currently report pain, chest pain, shortness of breath, n/v, abdominal pain, cough, fevor or chills. In the ED, vitals were significant for HR 100s, BP 100/66, SpO2 91-92% on RA. Labs were significant for WBC 13, hgb 8.8 (?baseline ~9), PLT 104, coagulopathy (INR 1.9), Na 127, BG 269, lactic acid 3.0, K 5.1, ALP 482, tbili 1.1, 63, ALT 21, PCT 6.7. CT-AP showed large sacral ulcer with erosion of the sacral bone, underlying osteomyelitis is likely, mild ascites and anasarca, bilateral pleural effusions. She was seen by general surgery who recommend chemical debridement and eventually surgical intervention. She was given daptomycin in the ED (what she received at [place]) and admitted to medicine. Allergies Allergy/AdvReac Type Severity Reaction Status Date / Time cephalexin Allergy Unknown HIVES Verified 02/15/22 11:16 fluorescein Allergy Unknown EYE Verified 02/15/22 11:16 SWELLING AND THROAT SWELLING lisinopril Allergy Unknown "CHOKING" Verified 02/15/22 11:16 meperidine Allergy Unknown NAUSEA Verified 02/15/22 11:16 Penicillins Allergy Unknown Rash Verified 05/14/22 15:16 Past Med/Surg History Medical History Accelerating angina Anemia due to stage 5 chronic kidney disease treated with erythropoietin Atherosclerosis of [place] arteries of extremities with rest pain, left leg Cancer of anorectal junction Cat bite of left forearm Cervical cancer Chronic lower GI bleeding Chronic radiation dermatitis Chronic stable angina CKD (chronic kidney disease) stage 5, GFR less than 15 ml/min CKD, patient preferred treatment modality in-center hemodialysis Closed fracture of phalanx of left fifth toe Colonic polyp Coronary artery disease Demand ischemia of myocardium DM type 2 with diabetic peripheral neuropathy Encounter for colorectal cancer screening 02/10/07 ESRD (end stage renal disease) on dialysis Heart failure with preserved ejection fraction, borderline, class II History of treatment of incomplete miscarriage x3 History of hyperbaric oxygen therapy 07/2011, 11/2011, 60 treatments. History of rectal or anal cancer HTN (hypertension) Hx of barium enema Hx of mammogram Hyperlipidemia Hyperparathyroidism Hyponatremia Hypothyroidism Injection of surface of both eyes Injection of eye drug, Lucentis 0.3mg by Dr. Taveras Iron deficiency anemia due to chronic blood loss Major depressive disorder Melanoma of back Myocardial infarction Non-compliance Other pancytopenia PAD (peripheral artery disease) Proliferative diabetic retinopathy of both eyes without macular edema associated with diabetes mellitus due to underlying condition Radiation proctitis Retinal edema Retinal lesion S/P arteriogram of extremity Thrombocytopenia Type 2 diabetes mellitus Uncontrolled type 2 diabetes mellitus with retinopathy of left eye, with long- term current use of insulin Uterine cancer Vitreous hemorrhage of right eye Surgical History H/O cataract removal with insertion of prosthetic lens H/O colonoscopy adhesions and radiation colitis precluded advancing scope through the sigmoid. Exam discontinued. H/O eye surgery partial removal of eye fluid, bilateral H/O laparoscopy appendectomy History of breast surgery left breast, 1982 History of insertion of tunneled central venous catheter (CVC) with port History of revascularization procedure of lower extremity Hx of angioplasty Hx of biopsy benign right breast biopsy about 20 years ago. Hx of colonoscopy 08/31/2017, multiple colonic angioectasias from prior radiation/narrowed and scarred left colon from multiple prior surgeries/colonoscopy flexible proximal diagnositic performed by Chandler Gill. S/P laser trabeculoplasty of eye S/P tonsillectomy Status post total abdominal hysterectomy Social History Smoking Status: Never smoker Hx Alcohol Use: No Hx Substance Use: No Preferred Language: Yoruba Communication Ability: Effective Beliefs That Will Affect Care: None marital status: Current Living Situation: Family current occupational status: employed current occupation: has own salon How many Children do You have: 1 How many Children do You have Comment: special needs child Feels Safe at Home: Yes caffeine: No Review of Systems Review of Systems: All systems reviewed & are unremarkable except as noted in Subjective Physical Exam Constitutional: well developed, well nourished, + well hydrated, + overweight and + edematous; no acute distress and not ill appearing Eyes: + anicteric sclerae, PERRL and EOM intact bilaterally; no conjunctival abnormality ENMT: Ears: no external ear abnormality Nose: no sinus tenderness and no epistaxis Mouth: no oropharynx abnormality, no oral mucosal abnormality, oral mucous membranes not dry and no dentition abnormality Throat: no tonsil abnormality Neck: trachea midline; no tracheal deviation and no nuchal rigidity Thyroid: normal thyroid; no thyromegaly and thyroid nontender Respiratory: normal respiratory effort; no respiratory distress, no labored breathing, does not use accessory muscles, not tachypneic and no audible wheezes Auscultation: lungs clear to auscultation bilaterally; no crackles, no rales, no rhonchi and no wheezes Cardiovascular: Rate/Rhythm: regular rhythm and + tachycardic Heart Sounds: normal S1 and normal S2; no gallop, no murmur and no cardiac rub Vessels: normal peripheral pulses Extremities: normal capillary refill and + edema Gastrointestinal (Abdomen): Inspection/Auscultation: normal bowel sounds, + abdominal edema, + abdominal surgical scar and + abdominal surgical incision (with partial dihiscence but no drainage or erythema); + abdomen abnormal to inspection (colostomy bag with dark stool contents in LLQ) and abdomen not distended Percussion/Palpation: abdomen soft; abdomen nontender, no guarding, abdomen not rigid and no hepatosplenomegaly Rectal Exam: + abnormal visual inspection of rectum (large sacral decub ulcer stage IV with eschar, necrosis, erythema at edges) Musculoskeletal: Head/Neck/Chest: normocephalic, head atraumatic and neck supple Spine: normal cervical ROM and no cervical spinal tenderness Extremities: strength 5/5 throughout; full ROM of extremities and no clubbing bilateral pitting to waits, dependent edema. stasis skin changes on shins Skin: normal turgor, + lesion (sacral and abdominal wounds) and + ulcer (sacrum, stage IV/unstageable); no rashes, no induration, no jaundice, no dry skin and no erythema Neurologic: moves all extremities and awake; no focal motor deficits Speech / Cognition: normal speech Motor/Sensory: no tremor, no fasciculations and no sensory deficit Cranial Nerves: PERRL, EOM intact bilaterally and tongue midline Psychiatric: Orientation: alert, oriented x 3 and cooperative Speech: normal rate/rhythm/volume of speech Affect: euthymic affect Genitourinary: no CVA tenderness Lymphatic: no lymphadenopathy and no lymphedema Results & Data Results & Data ([facility]) Vital Signs (Past 12 Hours) Vital Signs Temp Pulse Resp BP Pulse Ox O2 Del Method O2 Flow Rate 05/14/22 16:10 105 H 16 100 05/14/22 16:00 106 H 16 100/66 100 05/14/22 15:50 106 H 18 100 05/14/22 15:40 107 H 17 100 05/14/22 15:30 108 H 15 99 05/14/22 15:20 111 H 20 100 05/14/22 15:10 109 H 18 98 05/14/22 15:00 109 H 18 96 05/14/22 14:50 110 H 17 89 L 05/14/22 17:06 18 100 Room Air 05/14/22 15:14 110 H 20 96 Nasal Cannula 2 05/14/22 15:14 89 L Room Air 0 05/14/22 14:35 36.6 C 110 H 18 97/57 L Laboratory Results Short CBC 05/14/22 Range/Units 14:25 WBC 13.01 H (4.8-10.8) K/ul Hgb 8.8 L (12.0-16.0) g/dl Hct 27.7 L (34.1-44.9) % Plt Count 104 L (130-400) K/uL BMP 05/14/22 14:25 Sodium 127 L Potassium 5.1 Chloride 94 L Carbon Dioxide 22 BUN 22 Creatinine 3.89 H Glucose 269 H Calcium 8.2 L Liver Function 05/14/22 Range/Units 14:25 Total Bilirubin 1.1 H (0.2-1.0) mg/dl AST 63 H (13-39) U/L ALT 21 (7-52) U/L Alkaline Phosphatase 482 H (34-104) U/L Albumin 2.1 L (3.4-5.0) gm/dl Diagnostic Findings Abdomen/Pelvis CT 05/14/22 14:58 CT abd pelvis wo con CLINICAL HISTORY: sacral wound TECHNIQUE: Helical axial images of the abdomen and pelvis were obtained. Automated dose lowering techniques and/or adjustment according to patient size were utilized for this exam. This exam was performed without intravenous contrast. CT DOSE: 840.85 mGy.cm COMPARISON: None available at the time of this dictation. FINDINGS: Lower chest: Bilateral pleural effusions are seen with underlying atelectasis. Cardiomegaly is seen. Three-vessel atherosclerosis is seen in the coronaries. Liver: Unremarkable. No focal lesions are seen. Gallbladder and biliary tree: No calcified gallstones. Normal caliber wall. No intra- or extrahepatic biliary ductal dilation. Pancreas: Unremarkable, no focal lesions. Spleen: Calcifications are noted in the spleen compatible with prior granulomatous disease. Adrenals: Unremarkable. Kidneys and ureters: Perinephric stranding is noted bilaterally. Bladder: Limited evaluation due to underdistention. Reproductive organs: Patient is status post hysterectomy. Bowel: A double barreled colostomy is noted in the right lower quadrant. Patient is status post appendectomy. Lymph nodes Retroperitoneal: Unremarkable. Pelvic: Unremarkable. Mesenteric: Unremarkable. Peritoneum: Mild ascites is seen. Vessels: Atherosclerotic calcifications are seen. Abdominal wall: Prominent body wall edema is seen. There is a large sacral ulcer which extends to the bone and has significant surrounding swelling. Bones: There is erosion of the distal sacrum with a few bony fragments noted. Degenerative changes are seen elsewhere in the skeleton. IMPRESSION: 1. Large sacral ulcer with erosion of the sacral bone, underlying osteomyelitis is likely. 2. Mild ascites and prominent body wall edema. 3. Bilateral pleural effusions with associated atelectasis. Cardiomegaly. 4. Additional findings as above. ACT 112: Negative or not required by law. Electronically signed by: Eriberto Wiley M.D. 05/14/2022 3:43 PM Chest X-Ray 05/14/22 14:58 XR chest 1V portable CLINICAL HISTORY: SEPSIS TECHNIQUE: Single frontal radiograph of the chest was obtained. Comparison: Comparison is made to chest radiograph 11/17/2014 FINDINGS: Right venous catheter is seen with the tip at the cavoatrial junction. The cardiomediastinal silhouette is obscured. Multifocal airspace opacities are seen. No pneumothorax is seen, pleural effusions cannot be excluded. IMPRESSION: Multifocal airspace opacities may represent atelectasis, pneumonia, and/or aspiration. Bilateral small pleural effusions cannot be excluded. ACT 112: Negative or not required by law. Electronically signed by: Eriberto Wiley M.D. 05/14/2022 4:10 PM Medications Administered Current Inpatient Medications Atorvastatin Calcium (Atorvastatin 40 Mg Tab) 40 mg PO QAM ROSA M Stop: 06/14/22 08:59 Collagenase (Collagenase Oint 30 Gm Tube) 1 appln EXT DAILY ROSA M Stop: 06/14/22 08:59 Dextrose (Dextrose 50% 50 Ml Syringe) 25 - 50 ml IV UD PRN; Protocol PRN Reason: Hypoglycemia Protocol Stop: 06/13/22 18:24 Furosemide (Furosemide 10 Mg/Ml 10 Ml Vial) 100 mg IV BID ROSA M Stop: 06/13/22 20:59 Gabapentin (Gabapentin 100 Mg Cap) 100 mg PO QAM ROSA M Stop: 06/14/22 08:59 Glucagon (Glucagon For Inj 1 Mg Vial) 1 mg SQ UD PRN; Protocol PRN Reason: Hypoglycemia Protocol Stop: 06/13/22 18:24 Glucose (Glucose 40% Gel 15 Gm Tube) 15 - 30 gm PO UD PRN; Protocol PRN Reason: Hypoglycemia Protocol Stop: 06/13/22 18:24 Glucose (Glucose 10 Tab/Tube) 4 - 8 tab PO UD PRN; Protocol PRN Reason: Hypoglycemia Treatment Stop: 06/13/22 18:24 Daptomycin 400 mg/ Syringe 8 mls @ 4 mls/min IV Q24H ROSA M; Protocol Stop: 05/16/22 15:14 Last Admin: 05/14/22 16:07 Dose: 4 mls/min Insulin Aspart (Insulin Aspart Per Unit) 0 units SC ACHS ROSA M Stop: 06/13/22 20:59 Insulin Glargine (Lantus Per Unit Charge) 30 units SQ HS ROSA M Stop: 06/13/22 20:59 Latanoprost (Latanoprost 0.005% Op Soln 2.5 Ml Btl) 1 drops OP QPM ROSA M Stop: 06/13/22 20:59 Levothyroxine Sodium (Levothyroxine Sodium 137 Mcg Tablet) 137 mcg PO DAILYBB [facility] Stop: 06/14/22 06:29 Metoprolol Succinate (Metoprolol Succ 25mg Ext Rel Tab) 25 mg PO QAM ROSA M Stop: 06/14/22 08:59 Midodrine (Midodrine Hcl 2.5 Mg Tab) 5 mg PO TID@0800,1200,1700 [facility] Stop: 06/14/22 07:59 Miscellaneous (Carbohydrates For Hypoglycemia ) 15 - 30 gm PO UD PRN PRN Reason: Hypoglycemia Protocol Stop: 06/13/22 18:24 Miscellaneous Information (Pharmacy Glycemic Mgmt Consult) 1 each N/A UD PRN PRN Reason: Consult Stop: 06/13/22 18:24 Ondansetron HCl (Ondansetron Inj 2 Mg/Ml 2 Ml Vial) 4 mg IV Q6H PRN PRN Reason: Nausea Stop: 06/13/22 18:19 Pantoprazole Sodium (Pantoprazole 40 Mg Tab) 40 mg PO DAILY [facility] Stop: 06/14/22 08:59 Code Status & VTE Plan VTE Prophylaxis Plan VTE Prophylaxis will be ordered: Yes Reason for no VTE mechanical prophylaxis: Contraindicated (LE edema) (1) Osteomyelitis Osteomyelitis location: unspecified site Osteomyelitis type: unspecified type Qualified Code(s): M86.9 - Osteomyelitis, unspecified
[2022-05-14] MEDS ORDERED: CEFEPIME 2,000 MG/20 ML VIAL ONE (19:45)
[2022-05-14] MEDS: CEFEPIME 1,000 MG in SYRINGE 0 ML IV SCH (20:02)
[2022-05-14] MEDS ORDERED: LANTUS PER UNIT CHARGE SQ SCH (21:00)
[2022-05-14] MEDS ORDERED: DAPTOmycin 150 MG in SYRINGE 0 ML IV SCH (21:30)
[2022-05-14] MEDS ORDERED: SODIUM CHLORIDE 0.9% 500 ML IV SCH (21:45)
[2022-05-14] MEDS: INSULIN ASPART PER UNIT SC SCH (21:58)
[2022-05-14] MEDS: FUROSEMIDE 10 MG/ML 10 ML VIAL IV SCH (22:10)
[2022-05-14] MEDS: LATANOPROST 0.005% OP SOLN 2.5 ML BTL OP SCH (22:11)
[2022-05-14] MEDS: HEPARIN SOD 5,000 UNIT/0.5 ML VIAL SQ SCH (22:11)
[2022-05-14] MEDS: metroNIDAZOLE 500 MG/100 ML BAG IV SCH (22:32)
[2022-05-15] MEDS: INSULIN ASPART PER UNIT SC SCH ×6 (00:17→21:36)
[2022-05-15] MEDS: LEVOTHYROXINE SODIUM 137 MCG TABLET PO SCH (05:47)
[2022-05-15 07:23] LABS: Albumin Globulin Ratio 0.6 (0.9-2); Albumin Level 2.1 gm/dl (3.4-5.0); BUN Creatinine Ratio 6.2 (10-20); Calcium 8.3 mg/dl (8.5-10.1); Creatinine Clr Calc Pharmacy 14.8 ml/min; Est GFR (African American) 12.6 ml/min; Est GFR (Non-African American) 10.8 ml/min; Globulin 3.6 gm/dl (2.5-4.0); Magnesium 1.8 mg/dl (1.7-2.4); Phosphorus 4.8 mg/dl (2.5-4.9); Potassium 4.9 mmol/L (3.5-5.1); Total Protein 5.7 gm/dl (6.0-8.3)
[2022-05-15 07:35] LABS: Thyroid Stimulating Hormone 22.168 uIu/ml (0.300-4.500)
[2022-05-15 07:38] LABS: Basophils # (auto) 0.06 K/uL (0-0.2); Basophils % (auto) 0.5 %; Eosinophils # (auto) 0.21 K/uL (0-0.50); Eosinophils % (auto) 1.8 %; Hematocrit (blood only) 27.5 % (34.1-44.9); Hemoglobin 8.7 g/dl (12.0-16.0); Immature Granulocytes # (auto) 0.08 K/uL (0.00-0.02); Immature Granulocytes % (auto) 0.7 %; Lymphocytes # (auto) 1.16 K/uL (1.2-3.4); Macrocytosis Present; Mean Corpuscular Hgb Conc 31.6 g/dL (32.0-36.0); Mean Corpuscular Volume 97.9 fL (80.0-100.0); Mean Platelet Volume 10.4 fL (9.4-12.3); Monocytes # (auto) 0.68 K/uL (0.24-0.82); Monocytes % (auto) 5.9 %; Neutrophils # (auto) 9.43 K/uL (1.4-6.5); Neutrophils % (auto) 81.1 %; Nucleated RBC # (auto) 0.02 K/uL (0-0); Nucleated RBC % (auto) 0.2 %; Platelet Count 97 K/uL (130-400); Platelet Estimate Decreased (Normal); Polychromasia 2+; RDW Coefficient of Variation 22.7 % (11.5-14.5); RDW Standard Deviation 78.3 fL (36.4-46.3); Red Blood Count 2.81 M/uL (3.93-5.22); Target Cells 2+; White Blood Count 11.62 K/ul (4.8-10.8)
[2022-05-15 07:46] LABS: INR 1.8 (0.9-1.1); Prothrombin Time 18.2 Seconds (9.0-12.0)
--- NOTE | 2022-05-15 08:15 | Hospitalist Progress Note ---
Date of Service May 15, 2022 Assessment & Plan (1) Sepsis: Plan: - patient with tachycardia, leukocytosis, lactic acidosis - source likely stage IV sacral ulcer with likely underlying osteomyelitis - broad spectrum abx - surgical consult - telemetry monitoring (2) Osteomyelitis: Plan: - 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 - received surgical debridement at [facility] with bone culture/biopsy - was on daptomycin there with 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 - tachycardia, leukocytosis, likely osteo on CT scan in ED - blood cultures drawn here - started on daptmycin in the ED - will continue daptomycin for now - continue cefepime and flagyl pending cultures after 24-48 hours - general surgery consulted - recommend chemical debridement with santyl - will eventually need surgical debridement in the OR and wound vac - telemetry monitoring for now (3) Leukocytosis: Plan: - in the setting of sepsis - IV abx as above - trend WBC (4) Ulcer of sacral region, stage 4: Plan: - IV abx and surgical plan as above (5) Radiation necrosis of skin and subcutaneous: Plan: - see above (6) Acute hyponatremia: Plan: - likely due to sepsis and decrease po intake - unclear degree of acuity as no prior labs available at this time - hold IVF for now as patient is hemodynamically stable and is ESRD - trend Na - monitor on AM lab tomorrow (7) Lactic acidosis: Plan: - likely in the setting of sepsis - will trend to clearance - IV abx as above (8) End-stage renal disease (ESRD): Plan: - has been on HD for the past year, per patient - HD catheter in right chest - no evidence of infection at catheter site - renal consulted - normal schedule is MWF - no emergent indication for HD at this time (9) Diabetes: Plan: - on insulin at home - reportedly on Lantus ?42 units - will give 30 units lantus tonight - SSI per protocol - FSG AC+HS - diabetic diet (10) Hypothyroid: Plan: - patient is hypothyroid on labs with TSH 22, FT4 <0.25 - unclear if patient taking medication appropriately - will continue dose of 137mcg daily - recheck TSH in 4-6 weeks (11) Anemia: Plan: - chronic anemia in the setting of ESRD - was reportedly getting ?EPO injections with HD per Patient - continue EPO per renal - no signs of active bleeding at thist [facility] - Hgb 8.8 with unclear baseline but have record of 8.8 in 01/2022 - will monitor for now (12) Thrombocytopenia: Plan: - unclear chronicity - ?bone marrow suppression in the setting of sepsis, ESRD, chronical illness - no signs of bleeding - will monitor (13) Coagulopathy: Plan: - patient not on warfarin - in the setting of sepsis - will trend INR daily for now Plan DVT ppx: heparin SC Code Status: Full Code Eliot Saucedo MD Hospital Medicine Admission and Anticipated Discharge Date Admission Date: May 14, 2022 Subjective he patient is a 66 year old woman with pmh rectal cancer s/p chemoradiation (~20 years ago), cervical/uterine cancer, h/o of chronic rectal bleeding s/p ostomy diversion (?11/2021), ESRD on HD (MWF), CAD s/p [place] 2016, HTN, DM2 on insulin who presented with ongoing sacral wound infection. She recently was at [facility] where they did a surgical debridement and took bone cultures/pathology and was started on Daptomycin MWF with HD. She then left AMA from [place] because they felt they were not getting good care there. She reports that since chemoradiation, she has had chronic rectal bleeding requiring frequent hospitalizations. She eventually developed a sacral wound and eventually had a diverting colostomy to help with wound healing. Surgery evaluated her and recommended chemical debridement followed by likely surgical intervention and wound vac system. Renal consulted for HD. Started on daptomycin, cefepime, flagyl for now. Patient feels better today, appetite is better. Denies pain, fever or chills, n/v/d, abdominal pain, shortness of breath, chest pain. Review of Systems Review of Systems: All systems reviewed & are unremarkable except as noted in Subjective Physical Exam Constitutional: well developed, well nourished, + well hydrated, + overweight and + edematous; no acute distress and not ill appearing Eyes: + anicteric sclerae, PERRL and EOM intact bilaterally; no conjunctival abnormality ENMT: Ears: no external ear abnormality Nose: no sinus tenderness and no epistaxis Mouth: no oropharynx abnormality, no oral mucosal abnormality, oral mucous membranes not dry and no dentition abnormality Throat: no tonsil abnormality Neck: trachea midline; no tracheal deviation and no nuchal rigidity Thyroid: normal thyroid; no thyromegaly and thyroid nontender Respiratory: normal respiratory effort; no respiratory distress, no labored breathing, does not use accessory muscles, not tachypneic and no audible wheezes Auscultation: lungs clear to auscultation bilaterally; no crackles, no rales, no rhonchi and no wheezes Cardiovascular: Rate/Rhythm: regular rhythm and + tachycardic Heart Sounds: normal S1 and normal S2; no gallop, no murmur and no cardiac rub Vessels: normal peripheral pulses Extremities: normal capillary refill and + edema Gastrointestinal (Abdomen): Inspection/Auscultation: normal bowel sounds, + abdominal edema, + abdominal surgical scar and + abdominal surgical incision (with partial dihiscence but no drainage or erythema); + abdomen abnormal to inspection (colostomy bag with dark stool contents in LLQ) and abdomen not distended Percussion/Palpation: abdomen soft; abdomen nontender, no guarding, abdomen not rigid and no hepatosplenomegaly Rectal Exam: + abnormal visual inspection of rectum (large sacral decub ulcer stage IV with eschar, necrosis, erythema at edges) Musculoskeletal: Head/Neck/Chest: normocephalic, head atraumatic and neck supple Spine: normal cervical ROM and no cervical spinal tenderness Extremities: strength 5/5 throughout; full ROM of extremities and no clubbing Skin: normal turgor, + lesion (sacral and abdominal wounds) and + ulcer (sacrum, stage IV/unstageable); no rashes, no induration, no jaundice, no dry skin and no erythema Neurologic: moves all extremities and awake; no focal motor deficits Speech / Cognition: normal speech Motor/Sensory: no tremor, no fasciculations and no sensory deficit Cranial Nerves: PERRL, EOM intact bilaterally and tongue midline Psychiatric: Orientation: alert, oriented x 3 and cooperative Speech: normal rate/rhythm/volume of speech Affect: euthymic affect Genitourinary: no CVA tenderness Lymphatic: no lymphadenopathy and no lymphedema Results & Data Results & Data ([facility]) Vital Signs (Past 12 Hours) Vital Signs Temp Pulse Pulse Resp BP Pulse Ox O2 Del Method 05/15/22 08:02 36.5 C 84 22 95/63 L 100 Nasal Cannula 05/15/22 07:00 16 Nasal Cannula 05/15/22 03:56 36.4 C L 95 H 16 85/56 L 98 Nasal Cannula 05/14/22 23:00 97 H 05/14/22 20:35 103 H 05/14/22 20:35 Nasal Cannula 05/14/22 23:06 36.4 C L 95 H 16 103/53 L 98 Nasal Cannula 05/14/22 22:30 16 98 Nasal Cannula 05/14/22 22:00 18 94 Nasal Cannula 05/14/22 21:30 18 96 Nasal Cannula 05/14/22 21:00 16 95 Nasal Cannula 05/14/22 20:30 18 97 Nasal Cannula 05/14/22 21:12 36.5 C 104 H 18 88/44 L 95 Nasal Cannula O2 Flow Rate 05/15/22 08:02 2 05/15/22 07:00 2 05/15/22 03:56 2 05/14/22 23:00 05/14/22 20:35 05/14/22 20:35 2 05/14/22 23:06 2 05/14/22 22:30 2 05/14/22 22:00 2 05/14/22 21:30 2 05/14/22 21:00 2 05/14/22 20:30 2 05/14/22 21:12 2 Laboratory Results Short CBC 05/14/22 05/15/22 Range/Units 14:25 05:59 WBC 13.01 H 11.62 H (4.8-10.8) K/ul Hgb 8.8 L 8.7 L (12.0-16.0) g/dl Hct 27.7 L 27.5 L (34.1-44.9) % Plt Count 104 L 97 L (130-400) K/uL BMP 05/14/22 05/15/22 14:25 05:59 Sodium 127 L 129 L Potassium 5.1 4.9 Chloride 94 L 97 L Carbon Dioxide 22 24 BUN 22 25 H Creatinine 3.89 H 4.02 H Glucose 269 H 142 H Calcium 8.2 L 8.3 L Liver Function 05/14/22 05/15/22 Range/Units 14:25 05:59 Total Bilirubin 1.1 H 1.0 (0.2-1.0) mg/dl AST 63 H 52 H (13-39) U/L ALT 21 20 (7-52) U/L Alkaline Phosphatase 482 H 443 H (34-104) U/L Albumin 2.1 L 2.1 L (3.4-5.0) gm/dl Medications Administered Current Inpatient Medications Atorvastatin Calcium (Atorvastatin 40 Mg Tab) 40 mg PO QAM ROSA M Stop: 06/14/22 08:59 Collagenase (Collagenase Oint 30 Gm Tube) 1 appln EXT DAILY ROSA M Stop: 06/14/22 08:59 Dextrose (Dextrose 50% 50 Ml Syringe) 25 - 50 ml IV UD PRN; Protocol PRN Reason: Hypoglycemia Protocol Stop: 06/13/22 18:24 Furosemide (Furosemide 10 Mg/Ml 10 Ml Vial) 100 mg IV BID17 ROSA M Stop: 06/13/22 20:59 Last Admin: 05/14/22 22:10 Dose: Not Given Gabapentin (Gabapentin 100 Mg Cap) 100 mg PO QAM ROSA M Stop: 06/14/22 08:59 Glucagon (Glucagon For Inj 1 Mg Vial) 1 mg SQ UD PRN; Protocol PRN Reason: Hypoglycemia Protocol Stop: 06/13/22 18:24 Glucose (Glucose 40% Gel 15 Gm Tube) 15 - 30 gm PO UD PRN; Protocol PRN Reason: Hypoglycemia Protocol Stop: 06/13/22 18:24 Glucose (Glucose 10 Tab/Tube) 4 - 8 tab PO UD PRN; Protocol PRN Reason: Hypoglycemia Treatment Stop: 06/13/22 18:24 Heparin Sodium (Porcine) (Heparin Sod 5,000 Unit/0.5 Ml Vial) 5,000 units SQ Q12 ROSA M Stop: 06/13/22 20:59 Last Admin: 05/14/22 22:11 Dose: 5,000 units Daptomycin 550 mg/ Syringe 11 mls @ 5.5 mls/min IV Q48H ROSA M; Protocol Stop: 06/27/22 13:59 Cefepime HCl 1,000 mg/ Syringe 11.3 mls @ 5.5 mls/min IV Q24H ROSA M; Protocol Stop: 05/16/22 19:59 Last Admin: 05/14/22 20:02 Dose: 5.5 mls/min Metronidazole (Flagyl) 500 mg in 100 mls @ 100 mls/hr IV Q12 ROSA M Stop: 05/16/22 20:59 Last Infusion: 05/14/22 23:34 Dose: Infused Insulin Aspart (Insulin Aspart Per Unit) 0 units SC ACHS ROSA M Stop: 06/13/22 20:59 Last Admin: 05/14/22 21:58 Dose: 4 units Insulin Glargine (Lantus Per Unit Charge) 20 units SQ HS [facility] Stop: 06/13/22 20:59 Last Admin: 05/14/22 21:59 Dose: 20 units Latanoprost (Latanoprost 0.005% Op Soln 2.5 Ml Btl) 1 drops OP QPM ROSA M Stop: 06/13/22 20:59 Last Admin: 05/14/22 22:11 Dose: 1 drops Levothyroxine Sodium (Levothyroxine Sodium 137 Mcg Tablet) 137 mcg PO DAILYBB ROSA M Stop: 06/14/22 06:29 Last Admin: 05/15/22 05:47 Dose: 137 mcg Metoprolol Succinate (Metoprolol Succ 25mg Ext Rel Tab) 25 mg PO QAM [facility] Stop: 06/14/22 08:59 Midodrine (Midodrine Hcl 2.5 Mg Tab) 5 mg PO TID@0800,1200,1700 [facility] Stop: 06/14/22 07:59 Miscellaneous (Carbohydrates For Hypoglycemia ) 15 - 30 gm PO UD PRN PRN Reason: Hypoglycemia Protocol Stop: 06/13/22 18:24 Miscellaneous Information (Pharmacy Glycemic Mgmt Consult) 1 each N/A UD PRN PRN Reason: Consult Stop: 06/13/22 18:24 Ondansetron HCl (Ondansetron Inj 2 Mg/Ml 2 Ml Vial) 4 mg IV Q6H PRN PRN Reason: Nausea Stop: 06/13/22 18:19 Pantoprazole Sodium (Pantoprazole 40 Mg Tab) 40 mg PO DAILY [facility] Stop: 06/14/22 08:59 (1) Osteomyelitis Osteomyelitis location: unspecified site Osteomyelitis type: unspecified type Qualified Code(s): M86.9 - Osteomyelitis, unspecified
[2022-05-15 08:24] LABS: T4 Free Thyroxine < 0.25 ng/dl (0.61-1.60)
[2022-05-15] MEDS: COLLAGENASE OINT 30 GM TUBE EXT SCH (08:42)
[2022-05-15] MEDS: PANTOprazole 40 MG TAB PO SCH (08:43)
[2022-05-15] MEDS: MIDODRINE HCL 2.5 MG TAB PO SCH ×3 (08:43→16:59)
[2022-05-15] MEDS: GABAPENTIN 100 MG CAP PO SCH (08:43)
[2022-05-15] MEDS: ATORVASTATIN 40 MG TAB PO SCH (08:43)
[2022-05-15] MEDS: METOPROLOL SUCC 25MG EXT REL TAB PO SCH (08:44)
[2022-05-15] MEDS: HEPARIN SOD 5,000 UNIT/0.5 ML VIAL SQ SCH ×2 (08:44→21:35)
[2022-05-15] MEDS: FUROSEMIDE 10 MG/ML 10 ML VIAL IV SCH ×2 (08:44→17:19)
[2022-05-15] MEDS: metroNIDAZOLE 500 MG/100 ML BAG IV SCH ×2 (08:48→21:35)
--- NOTE | 2022-05-15 09:25 | Electrocardiogram Report ---
Test Reason : Blood Pressure : / mmHG Vent. Rate : 109 BPM Atrial Rate : 109 BPM P-R Int : 190 ms QRS Dur : 122 ms QT Int : 340 ms P-R-T Axes : 034 -02 173 degrees QTc Int : 457 ms Sinus tachycardia Left atrial enlargement Left bundle branch block Low voltage QRS Abnormal ECG When compared with ECG of 17-NOV-2014 16:07, Left bundle branch block is now Present Confirmed by Sumit Marti ([id number]) on 05/15/2022 9:25:00 AM Referred By: REFERRED SELF Confirmed By:Sumit Marti
--- NOTE | 2022-05-15 10:00 | Nephrology Consultation ---
Date of Consultation May 15, 2022 Assessment & Plan (1) End-stage renal disease (ESRD): ESRD MWF at [facility] Last dialysed on tuesday [facility], - Next HD ON tuesday - Please continue on all her outpatient medication including high dose Epo AND antibiotics. (2) Ulcer of sacral region, stage 4: - waiting surgical intervention - Continue on the MWF Daptomycin as prescribed in [place] (3) Osteomyelitis: History of Present Illness Reason for Consultation: ESRD MWF ( [facility]) a/w sacral ulcers, Osteomyelitis. Attending Physician: Eliot Saucedo MD History of Present Illness 66 year old woman with PMH of rectal cancer s/p chemoradiation (~20 years ago), cervical/uterine cancer, h/o of chronic rectal bleeding s/p ostomy diversion (?11/2021), ESRD on HD (MWF [facility]), CAD s/p [place] 2016, HTN, DM2 on insulin who presented with ongoing sacral wound infection. Recent admission [facility] s/p surgical debridement , now on Daptomycin MWF with HD. She then left AMA from [place] because they felt they were not getting good care there.Denied chest pain, shortness of breath, n/v, abdominal pain, cough, fevor or chills in ER.Labs were significant for WBC 13, hgb 8.8 CT-AP showedlarge sacral ulcer with erosion of the sacral bone, underlying osteomyelitis is likely, mild ascites and anasarca, bilateral pleural effusions. She was seen by general surgery who recommend chemical debridement and eventually surgical intervention. She was given daptomycin in the ED (what she received at [facility]) and admitted to medicine, She was lasy dialysed at [facility] on 05/14. Allergies Allergy/AdvReac Type Severity Reaction Status Date / Time cephalexin Allergy Unknown HIVES Verified 02/15/22 11:16 fluorescein Allergy Unknown EYE Verified 02/15/22 11:16 SWELLING AND THROAT SWELLING lisinopril Allergy Unknown "CHOKING" Verified 02/15/22 11:16 meperidine Allergy Unknown NAUSEA Verified 02/15/22 11:16 Penicillins Allergy Unknown Rash Verified 05/14/22 15:16 Home Medications Medication Instructions Recorded Confirmed Type Daptomycin Iv 750 mg IV .Q Tue05/14/22 05/14/22 History atorvastatin 40 mg tablet 40 mg PO QAM 05/14/22 05/14/22 History brimonidine 0.2 %-timolol 0.5 % 1 drp OPB [facility] 05/14/22 05/14/22 History eye drops daptomycin 500 mg intravenous 500 mg IV .ONCE A DAY ON 05/14/22 05/14/22 History solution fluconazole 200 mg tablet 200 mg PO QAM 05/14/22 05/14/22 History furosemide 20 mg tablet (Lasix) 20 mg PO QAM 05/14/22 05/14/22 History gabapentin 300 mg capsule 300 mg PO HS 05/14/22 05/14/22 History hydroxyzine HCl 25 mg tablet 25 mg PO Q6 PRN Anxiety 05/14/22 05/14/22 History insulin aspart U-100 100 unit/mL 0 unit subcut .PM MEAL 05/14/22 05/14/22 Hi story (3 mL) subcutaneous pen (Novolog Flexpen U-100 Insulin aspart) insulin glargine 100 unit/mL (3 40 unit subcut [facility] 05/14/22 05/14/22 History mL) subcutaneous pen (Basaglar KwikPen U-100 Insulin) latanoprost 0.005 % eye drops 1 drp OPB HS 05/14/22 05/14/22 History levothyroxine 137 mcg tablet 137 mcg PO DAILY 05/14/22 05/14/22 History loperamide 2 mg capsule 2 mg PO DIRECTED PRN Diarrhea 05/14/22 05/14/22 History midodrine 5 mg tablet 5 mg PO TID 05/14/22 05/14/22 History nitroglycerin 0.4 mg sublingual 0.4 mg sublingual DIRECTED PRN 05/14/22 05/14/22 History tablet (Nitrostat) Chest Pain ondansetron HCl 4 mg tablet 4 mg PO DIRECTED PRN Nausea 05/14/22 05/14/22 History oxycodone 5 mg/5 mL oral solution 2.5 mg PO DAILY PRN Severe Pain 05/14/22 05/14/22 History (Scale Score 7-10) pantoprazole 40 mg tablet,delayed 40 mg PO DAILY 05/14/22 05/14/22 History release ropinirole 0.25 mg tablet 0.25 mg PO HS 05/14/22 05/14/22 History sodium hypochlorite 0.25 % solution 1 applic topical DAILY 05/14/22 05/14/22 History triamcinolone acetonide 0.1 % 1 applic topical DIRECTED 05/14/22 05/14/22 History topical cream Patient History Medical History Accelerating angina Anemia due to stage 5 chronic kidney disease treated with erythropoietin Atherosclerosis of zuni arteries of extremities with rest pain, left leg Cancer of anorectal junction Cat bite of left forearm Cervical cancer Chronic lower GI bleeding Chronic radiation dermatitis Chronic stable angina CKD (chronic kidney disease) stage 5, GFR less than 15 ml/min CKD, patient preferred treatment modality in-center hemodialysis Closed fracture of phalanx of left fifth toe Colonic polyp Coronary artery disease 50% lad stenosis, an 80% obtuse marginal stenosis, and a 50% PDA stenosis. It should be noted her PDA arose from her left circumflex. Demand ischemia of myocardium DM type 2 with diabetic peripheral neuropathy Encounter for colorectal cancer screening 02/10/07 ESRD (end stage renal disease) on dialysis Heart failure with preserved ejection fraction, borderline, class II History of treatment of incomplete miscarriage x3 History of hyperbaric oxygen therapy 07/2011, 11/2011, 60 treatments. History of rectal or anal cancer HTN (hypertension) Hx of barium enema Hx of mammogram Hyperlipidemia Hyperparathyroidism Hyponatremia Hypothyroidism Injection of surface of both eyes Injection of eye drug, Lucentis 0.3mg by Dr. Taveras Iron deficiency anemia due to chronic blood loss Major depressive disorder Melanoma of back Myocardial infarction Non-compliance Other pancytopenia PAD (peripheral artery disease) Proliferative diabetic retinopathy of both eyes without macular edema associated with diabetes mellitus due to underlying condition Radiation proctitis Retinal edema Retinal lesion S/P arteriogram of extremity Thrombocytopenia Type 2 diabetes mellitus Uncontrolled type 2 diabetes mellitus with retinopathy of left eye, with long- term current use of insulin Uterine cancer Vitreous hemorrhage of right eye Surgical History H/O cataract removal with insertion of prosthetic lens H/O colonoscopy adhesions and radiation colitis precluded advancing scope through the sigmoid. Exam discontinued. H/O eye surgery partial removal of eye fluid, bilateral H/O laparoscopy appendectomy History of breast surgery left , 1982 History of insertion of tunneled central venous catheter (CVC) with port History of revascularization procedure of lower extremity Hx of angioplasty Hx of biopsy benign right breast biopsy about 20 years ago. Hx of colonoscopy 08/31/2017, multiple colonic angioectasias from prior radiation/narrowed and scarred left colon from multiple prior surgeries/colonoscopy flexible pro ximal diagnositic performed by Chandler Gill. S/P laser trabeculoplasty of eye S/P tonsillectomy Status post total abdominal hysterectomy Social History Smoking Status: Never smoker Hx Alcohol Use: No Hx Substance Use: No Preferred Language: Cuban Communication Ability: Effective Beliefs That Will Affect Care: None marital status: Current Living Situation: Spouse current occupational status: employed current occupation: has own salon How many Children do You have: 1 How many Children do You have Comment: special needs child Feels Safe at Home: Yes Safety Concerns: Feels Safe At This Time caffeine: No Assistive Devices: None Review of Systems Review of Systems: Comfortable , with no distress, ON going rectal pain 2+ bilateral pedal edema. Physical Exam Physical Exam: General: Alert to person and place. NAD. Lethargic HENT: Normocephalic. Atraumatic. Eyes: PER. Conjunctiva pink, sclera clear. Neck: No carotid bruits. No JVD. Heart: Systolic murmur. No rub. Lungs: Clear to auscultation anteriorly and laterally. Chest: Reproducible chest wall discomfort. Abdomen: +BS. Soft. Tenderness in the epigastric area. No masses or organomegaly. Extremities: No clubbing, cyanosis,, 2+ Bilateral pedal edema. Results & Data ([facility]) Vital Signs (Past 12 Hours) Vital Signs Temp Pulse Pulse Resp BP Pulse Ox O2 Del Method 05/15/22 09:43 88 05/15/22 07:30 Nasal Cannula 05/15/22 08:02 36.5 C 84 22 95/63 L 100 Nasal Cannula 05/15/22 07:00 16 Nasal Cannula 05/15/22 03:56 36.4 C L 95 H 16 85/56 L 98 Nasal Cannula 05/14/22 23:00 97 H 05/14/22 23:06 36.4 C L 95 H 16 103/53 L 98 Nasal Cannula 05/14/22 22:30 16 98 Nasal Cannula 05/14/22 22:00 18 94 Nasal Cannula O2 Flow Rate 05/15/22 09:43 05/15/22 07:30 2 05/15/22 08:02 2 05/15/22 07:00 2 05/15/22 03:56 2 05/14/22 23:00 05/14/22 23:06 2 05/14/22 22:30 2 05/14/22 22:00 2 Laboratory Results 05/15/22 05:59 05/15/22 05:59 (1) Osteomyelitis Osteomyelitis location: unspecified site Osteomyelitis type: unspecified type Qualified Code(s): M86.9 - Osteomyelitis, unspecified
[2022-05-15 10:39] LABS: Estimated Average Glucose 123 mg/dl; Hemoglobin A1C 5.9 % (4.5-5.6)
--- NOTE | 2022-05-15 13:54 | Pharmacy Report ---
Pharmacy Glycemic Short Note 2 - Date of Service May 15, 2022 - Glycemic Short BSG Results (Last 24 hours): 05/14/22 05/14/22 05/15/22 14:25 21:05 00:08 Glucose 269 H POC Glucose 281 H 253 H 05/15/22 05/15/22 05/15/22 03:46 05:59 07:44 Glucose 142 H POC Glucose 178 H 124 H 05/15/22 10:48 Glucose POC Glucose 135 H OUTPATIENT ANTIDIABETIC REGIMEN: * Basaglar 42 units HS - reports following [facility] ASSESSMENT: * 66 year old admitted with osteo - continues on antibiotics today. Patient received total of 30 units of insulin yesterday, of which 20 units were basal insulin * Fasting BSG 124 mg/dL - PO intake poor today, will continue with reduced basal dose of 15-20 units HS * Continue stress of 2 novolog PLAN FOR INPATIENT GLYCEMIC CONTROL: * Hold outpatient oral diabetes medications * Basal insulin * Lantus 15-20 units HS depending on BSG value * Bolus insulin * NovoLog per scale ACHS or Q6hrs while NPO * Goal Range: Low 110 mg/dL - High 140 mg/dL * Correction Factor: 20 mg/dL/unit * Nutritional / Prandial insulin per carb ratio of 1 unit per 8 grams CHO consumed
[2022-05-15] MEDS: CEFEPIME 1,000 MG in SYRINGE 0 ML IV SCH (19:36)
[2022-05-15] MEDS ORDERED: SODIUM CHLORIDE 0.9% 500 ML IV SCH (20:15)
[2022-05-15] MEDS ORDERED: LEVOTHYROXINE SODIUM IV STA (20:21)
[2022-05-15] MEDS ORDERED: LANTUS PER UNIT CHARGE SQ SCH (21:00)
[2022-05-15] MEDS: LATANOPROST 0.005% OP SOLN 2.5 ML BTL OP SCH (21:36)
[2022-05-15] MEDS: HYDROCORTISONE SOD 50 MG in SYRINGE 0 ML IV SCH (21:36)
[2022-05-15] MEDS ORDERED: LEVOTHYROXINE SODIUM 100 MCG in SYRINGE 0 ML IV ONE (22:00)
[2022-05-16] MEDS: HYDROCORTISONE SOD 50 MG in SYRINGE 0 ML IV SCH ×4 (04:22→20:23)
[2022-05-16 06:09] LABS: Hemoglobin 8.6 g/dl (12.0-16.0); Mean Corpuscular Hemoglobin 30.4 pg (25.0-34.0); Mean Corpuscular Hgb Conc 31.9 g/dL (32.0-36.0); Mean Corpuscular Volume 95.4 fL (80.0-100.0); Mean Platelet Volume 10.1 fL (9.4-12.3); Nucleated RBC # (auto) 0.05 K/uL (0-0); Nucleated RBC % (auto) 0.4 %; Platelet Count 77 K/uL (130-400); RDW Coefficient of Variation 22.3 % (11.5-14.5); RDW Standard Deviation 73.9 fL (36.4-46.3); Red Blood Count 2.83 M/uL (3.93-5.22); White Blood Count 12.58 K/ul (4.8-10.8)
[2022-05-16 06:36] LABS: Albumin Globulin Ratio 0.6 (0.9-2); BUN Creatinine Ratio 7.5 (10-20); Bilirubin,Total 1.1 mg/dl (0.2-1.0); Calcium 7.9 mg/dl (8.5-10.1); Creatinine Clr Calc Pharmacy 13.8 ml/min; Est GFR (African American) 11.3 ml/min; Est GFR (Non-African American) 9.8 ml/min; Globulin 3.5 gm/dl (2.5-4.0); Magnesium 1.9 mg/dl (1.7-2.4); Phosphorus 5.2 mg/dl (2.5-4.9); Potassium 5.1 mmol/L (3.5-5.1); Total Protein 5.5 gm/dl (6.0-8.3)
[2022-05-16] MEDS: DEXTROSE 50% 50 ML SYRINGE IV PRN ×2 (06:39→11:55)
[2022-05-16] MEDS ORDERED: DEXTROSE 50% 50 ML SYRINGE IV STA (06:49)
--- NOTE | 2022-05-16 07:09 | Surgery Progress Note ---
Date of Service May 16, 2022 Assessment & Plan (1) Ulcer of sacral region, stage 4: Plan: Continue with Santyl if medically stable and improved after hemodialysis tomorrow we will plan to debridement of the ulcer in the operating room on Tuesday if okay with the medical service Admission and Anticipated Discharge Date Admission Date: May 14, 2022 Subjective Recently received 50% dextrose for hypoglycemic Physical Exam Physical Exam: Sacral ulceration pretty much unchanged from first admission Moderate amount of thick fibrinous exudate in the crater and eschar in the surrounding area with periwound erythema odor appreciated dark cloudy drainage Results & Data ([facility]) Vital Signs (Past 12 Hours) Vital Signs Temp Pulse Pulse Resp BP Pulse Ox O2 Del Method 05/15/22 23:00 71 05/16/22 03:38 36.2 C L 76 15 85/60 L 90 Nasal Cannula 05/15/22 23:35 36.1 C L 72 15 89/59 L 91 Nasal Cannula 05/15/22 22:00 35.4 C L 05/15/22 20:01 35 C L 70 16 104/68 93 PG Care Time/CCT Total # of Minutes Spent Total Time Spent with Patient: Total time spent is greater than 50% in coordination of care (as documented) at patient's floor/unit and/or counseling patient: Coding Level of Care Code 35403 Subseq Hosp Care Lvl 3 Diagnoses Ulcer of sacral region, stage 4 L98.429
[2022-05-16 07:54] LABS: Basophils # (auto) 0.02 K/uL (0-0.2); Basophils % (auto) 0.2 %; Eosinophils # (auto) 0.02 K/uL (0-0.50); Eosinophils % (auto) 0.2 %; Immature Granulocytes % (auto) 0.8 %; Lymphocytes # (auto) 0.55 K/uL (1.2-3.4); Lymphocytes % (auto) 4.4 %; Macrocytosis Present; Monocytes # (auto) 0.27 K/uL (0.24-0.82); Monocytes % (auto) 2.1 %; Neutrophils # (auto) 11.62 K/uL (1.4-6.5); Neutrophils % (auto) 92.3 %; Target Cells 1+
--- NOTE | 2022-05-16 08:06 | Communication Note ---
Date of Service: May 16, 2022 Last night patient t was hypothermic. Blood pressure on lower side. Hyponatremic. She has sepsis from decubitus ulcer. Tsh 22. free T4<0.25. Discussed with Endocrinology contract specialist at [place]. Recommended iv hydrocortisone 50mg qid x 1 day tid 2nd day bid third day and stop. Iv synthyroid 100mcg daily and to check Free t4 daily. If free t4 going further low to increase the dose of iv synthyroid accordingly( Can Call Endo at [place]) When improved to place her back on home dose synthyroid 137mcg daily if she is non compliant with meds and check levels in 4 weeks. If patient is compliant with the meds to increase the home dose of synthyroid to 150mcg daily and check thyroid levels in 4 weeks and followup. Notified Am provider. Thanks
[2022-05-16] MEDS: COLLAGENASE OINT 30 GM TUBE EXT SCH (08:50)
[2022-05-16] MEDS: INSULIN ASPART PER UNIT SC SCH ×4 (08:50→20:57)
[2022-05-16] MEDS: ATORVASTATIN 40 MG TAB PO SCH (08:51)
[2022-05-16] MEDS: MIDODRINE HCL 2.5 MG TAB PO SCH ×3 (08:51→16:32)
[2022-05-16] MEDS: HEPARIN SOD 5,000 UNIT/0.5 ML VIAL SQ SCH ×2 (08:52→20:23)
[2022-05-16] MEDS: GABAPENTIN 100 MG CAP PO SCH (08:52)
[2022-05-16] MEDS: PANTOprazole 40 MG TAB PO SCH (08:53)
[2022-05-16] MEDS: metroNIDAZOLE 500 MG/100 ML BAG IV SCH (08:53)
[2022-05-16] MEDS: METOPROLOL SUCC 25MG EXT REL TAB PO SCH (08:54)
[2022-05-16] MEDS ORDERED: LEVOTHYROXINE SODIUM IV SCH (09:00)
[2022-05-16] MEDS: LEVOTHYROXINE SODIUM 100 MCG in SYRINGE 0 ML IV SCH (10:10)
--- NOTE | 2022-05-16 10:44 | Cardiology Consultation ---
Date of Consultation May 16, 2022 Assessment & Plan (1) Preop cardiovascular exam: (2) Sepsis: (3) Thrombocytopenia: (4) Anemia: (5) Ulcer of sacral region, stage 4: (6) Osteomyelitis: (7) Decubitus ulcer of sacral area: (8) Acute hyponatremia: (9) End-stage renal disease (ESRD): (10) Chronic radiation proctitis: (11) Radiation necrosis of skin and subcutaneous: (12) Uterine cancer: (13) Breast CA: (14) Cancer of anorectum: (15) Diabetes: (16) Coronary artery disease: (17) Heart failure with preserved ejection fraction, borderline, class II: (18) PAD (peripheral artery disease): Plan Given her multiple comorbidities including her ischemic cardiomyopathy the patient would obviously be a very high risk for any adverse perioperative cardiovascular event. I would place her risk at or greater than 10% Unfortunately, no further cardiac testing or intervention would further lower this risk. Should the patient and or her family understand and accepting of this risk then I would see no need to delay from a cardiac standpoint Consideration may also be given to consultation with our palliative care colleagues to discuss goals of care History of Present Illness Reason for Consultation: Preop risk assessment [facility] Attending Physician: Eliot Saucedo MD History of Present Illness It was my pleasure to see Brought in cardiac consultation today May 16, 2022. She is a very medically complex 66-year-old woman who presented to [facility] on 05/14/2022 with inability to ambulate. She was recently admitted at [facility] in [place] where she underwent surgical debridement of a decubitus ulcer. Unfortunately, she left AMA prior to treatment being completed. She is currently very lethargic and not responding to questions. History obtained through review of medical records and discussion with nursing staff PMHX: 1.CAD -Non-obstructive via cath 11/05/2016: 50% lad stenosis, an 80% obtuse marginal stenosis, and a 50% PDA stenosis. It should be noted her PDA arose from her left circumflex. 2.HTN 3.HLD 4.ESRD -Dialysis MWF 5.DM 2 6.Hx L Sided Breast Cancer, Uterine Cancer, Anal/Rectal Cancer -s/p radiation with chronic rectal bleeding 7.Chronic Anemia 8. Ischemic cardiomyopathy with deferred intervention given ongoing bleeding history, EF 40 to 44% Allergies Allergy/AdvReac Type Severity Reaction Status Date / Time cephalexin Allergy Unknown HIVES Verified 02/15/22 11:16 fluorescein Allergy Unknown EYE Verified 02/15/22 11:16 SWELLING AND THROAT SWELLING lisinopril Allergy Unknown "CHOKING" Verified 02/15/22 11:16 meperidine Allergy Unknown NAUSEA Verified 02/15/22 11:16 Penicillins Allergy Unknown Rash Verified 05/14/22 15:16 Home Medications Medication Instructions Recorded Confirmed Type Daptomycin Iv 750 mg IV .Q FRI 05/14/22 05/14/22 History atorvastatin 40 mg tablet 40 mg PO QAM 05/14/22 05/14/22 History brimonidine 0.2 %-timolol 0.5 % 1 drp OPB [facility] 05/14/22 05/14/22 History eye drops daptomycin 500 mg intravenous 500 mg IV .ONCE A DAY ON 05/14/22 05/14/22 History solution fluconazole 200 mg tablet 200 mg PO QAM 05/14/22 05/14/22 History furosemide 20 mg tablet (Lasix) 20 mg PO QAM 05/14/22 05/14/22 History gabapentin 300 mg capsule 300 mg PO HS 05/14/22 05/14/22 History hydroxyzine HCl 25 mg tablet 25 mg PO Q6 PRN Anxiety 05/14/22 05/14/22 History insulin aspart U-100 100 unit/mL 0 unit subcut .PM MEAL 05/14/22 05/14/22 History (3 mL) subcutaneous pen (Novolog Flexpen U-100 Insulin aspart) insulin glargine 100 unit/mL (3 40 unit subcut QA 05/14/22 05/14/22 History mL) subcutaneous pen (Basaglar KwikPen U-100 Insulin) latanoprost 0.005 % eye drops 1 drp OPB HS 05/14/22 05/14/22 History levothyroxine 137 mcg tablet 137 mcg PO DAILY 05/14/22 05/14/22 History loperamide 2 mg capsule 2 mg PO DIRECTED PRN Diarrhea 05/14/22 05/14/22 History midodrine 5 mg tablet 5 mg PO TID 05/14/22 05/14/22 History nitroglycerin 0.4 mg sublingual 0.4 mg sublingual DIRECTED PRN 05/14/22 05/14/22 History tablet (Nitrostat) Chest Pain ondansetron HCl 4 mg tablet 4 mg PO DIRECTED PRN Nausea 05/14/22 05/14/22 History oxycodone 5 mg/5 mL oral solution 2.5 mg PO DAILY PRN Severe Pain 05/14/22 05/14/22 History (Scale Score 7-10) pantoprazole 40 mg tablet,delayed 40 mg PO DAILY 05/14/22 05/14/22 History release ropinirole 0.25 mg tablet 0.25 mg PO HS 05/14/22 05/14/22 History sodium hypochlorite 0.25 % solution 1 applic topical DAILY 05/14/22 05/14/22 History triamcinolone acetonide 0.1 % 1 applic topical DIRECTED 05/14/22 05/14/22 History topical cream Patient History Medical History Accelerating angina Anemia due to stage 5 chronic kidney disease treated with erythropoietin Atherosclerosis of seminole arteries of extremities with rest pain, left leg Cancer of anorectal junction Cat bite of left forearm Cervical cancer Chronic lower GI bleeding Chronic radiation dermatitis Chronic stable angina CKD (chronic kidney disease) stage 5, GFR less than 15 ml/min CKD, patient preferred treatment modality in-center hemodialysis Closed fracture of phalanx of left fifth toe Colonic polyp Coronary artery disease 50% lad stenosis, an 80% obtuse marginal stenosis, and a 50% PDA stenosis. It should be noted her PDA arose from her left circumflex. Demand ischemia of myocardium DM type 2 with diabetic peripheral neuropathy Encounter for colorectal cancer screening 02/10/07 ESRD (end stage renal disease) on dialysis Heart failure with preserved ejection fraction, borderline, class II History of treatment of incomplete miscarriage x3 History of hyperbaric oxygen therapy 07/2011, 11/2011, 60 treatments. History of rectal or anal cancer HTN (hypertension) Hx of barium enema Hx of mammogram Hyperlipidemia Hyperparathyroidism Hyponatremia Hypothyroidism Injection of surface of both eyes Injection of eye drug, Lucentis 0.3mg by Dr. Taveras Iron deficiency anemia due to chronic blood loss Major depressive disorder Melanoma of back Myocardial infarction Non-compliance Other pancytopenia PAD (peripheral artery disease) Proliferative diabetic retinopathy of both eyes without macular edema associated with diabetes mellitus due to underlying condition Radiation proctitis Retinal edema Retinal lesion S/P arteriogram of extremity Thrombocytopenia Type 2 diabetes mellitus Uncontrolled type 2 diabetes mellitus with retinopathy of left eye, with long- term current use of insulin Uterine cancer Vitreous hemorrhage of right eye Surgical History H/O cataract removal with insertion of prosthetic lens H/O colonoscopy adhesions and radiation colitis precluded advancing scope through the sigmoid. Exam discontinued. H/O eye surgery partial removal of eye fluid, bilateral H/O laparoscopy appendectomy History of breast surgery left breast, 1982 History of insertion of tunneled central venous catheter (CVC) with port History of revascularization procedure of lower extremity Hx of angioplasty Hx of biopsy benign right breast biopsy about 20 years ago. Hx of colonoscopy 08/31/2017, multiple colonic angioectasias from prior radiation/narrowed and scarred left colon from multiple prior surgeries/colonoscopy flexible proximal diagnositic performed by Chandler Gill. S/P laser trabeculoplasty of eye S/P tonsillectomy Status post total abdominal hysterectomy Social History Smoking Status: Never smoker Hx Alcohol Use: No Hx Substance Use: No Preferred Language: German Communication Ability: Effective Beliefs That Will Affect Care: None marital status: Current Living Situation: Spouse current occupational status: employed current occupation: has own salon How many Children do You have: 1 How many Children do You have Comment: special needs child Feels Safe at Home: Yes Safety Concerns: Feels Safe At This Time caffeine: No Assistive Devices: None Review of Systems Review of Systems: Unobtainable due to reduced consciousness Physical Exam Physical Exam: General: Lethargic not responding to questioning. No acute distress. HEENT: Normocephalic, atraumatic. Pupils equal, round and reactive to light and accommodation. Extraocular muscles are intact. Anicteric sclera. Moist mucous membranes. Neck: No JVD. No bruit. Cardiovascular: Regular. Positive S-4. Normal S-1 and S-2. No S-3. No murmurs or rubs. Pulmonary: Clear to auscultation B/L. No rales, rhonchi or wheezing Abdomen: Bowel sounds x 4, soft. No rebound, guarding or tenderness. No organomegaly. Extremities: No clubbing, cyanosis or edema. +2 pedal pulses bilaterally. Skin: Warm and dry. Results & Data ([facility]) Vital Signs (Past 12 Hours) Vital Signs Temp Pulse Pulse Resp BP Pulse Ox O2 Del Method 05/16/22 07:44 36.7 C 79 18 86/55 L 91 05/15/22 23:00 71 05/16/22 03:38 36.2 C L 76 15 85/60 L 90 Nasal Cannula 05/15/22 23:35 36.1 C L 72 15 89/59 L 91 Nasal Cannula (1) Decubitus ulcer of sacral area Pressure injury stage: stage 4 Qualified Code(s): L89.154 - Pressure ulcer of sacral region, stage 4 (2) Osteomyelitis Osteomyelitis location: unspecified site Osteomyelitis type: unspecified type Qualified Code(s): M86.9 - Osteomyelitis, unspecified
--- NOTE | 2022-05-16 12:40 | Hospitalist Progress Note ---
Date of Service May 16, 2022 Assessment & Plan (1) Sepsis: Plan: - patient with tachycardia, leukocytosis, lactic acidosis - source likely stage IV sacral ulcer with likely underlying osteomyelitis - broad spectrum abx - surgical consult - telemetry monitoring (2) Osteomyelitis: Plan: - 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 - received surgical debridement at [facility] with bone culture/biopsy - was on daptomycin there with 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 - tachycardia, leukocytosis, likely osteo on CT scan in ED - blood cultures drawn here - started on daptmycin in the ED - will continue daptomycin for now - continue cefepime and flagyl pending cultures after 24-48 hours - general surgery consulted - recommend chemical debridement with santyl - will eventually need surgical debridement in the OR and wound vac - possibly Tuesday pending medical input - Cardiology consulted for pre-op risk stratification given complex cardiac and medical history - telemetry monitoring for now (3) Leukocytosis: Plan: - in the setting of sepsis - IV abx as above - trend WBC (4) Ulcer of sacral region, stage 4: Plan: - IV abx and surgical plan as above (5) Radiation necrosis of skin and subcutaneous: Plan: - see above (6) Acute hyponatremia: Plan: - likely due to sepsis and decrease po intake - unclear degree of acuity as no prior labs available at this time - hold IVF for now as patient is hemodynamically stable and is ESRD - trend Na - monitor on AM lab tomorrow (7) Lactic acidosis: Plan: - likely in the setting of sepsis - will trend to clearance - IV abx as above (8) End-stage renal disease (ESRD): Plan: - has been on HD for the past year, per patient - HD catheter in right chest - no evidence of infection at catheter site - renal consulted - normal schedule is MWF - no emergent indication for HD at this time (9) Diabetes: Plan: - on insulin at home - reportedly on Lantus ?42 units - will give 30 units lantus tonight - SSI per protocol - FSG AC+HS - diabetic diet (10) Hypothyroid: Plan: - patient is hypothyroid on labs with TSH 22, FT4 <0.25 - unclear if patient taking medication appropriately - started on IV levothyroxine 100mcg daily - recheck FT4 daily - recheck TSH in 4-6 weeks (11) Anemia: Plan: - chronic anemia in the setting of ESRD - was reportedly getting ?EPO injections with HD per Patient - continue EPO per renal - no signs of active bleeding at thist saloni - Hgb 8.8 with unclear baseline but have record of 8.8 in 01/2022 - will monitor for now (12) Thrombocytopenia: Plan: - unclear chronicity - ?bone marrow suppression in the setting of sepsis, ESRD, chronical illness - no signs of bleeding - will monitor (13) Coagulopathy: Plan: - patient not on warfarin - in the setting of sepsis - will trend INR daily for now Plan DVT ppx: heparin SC Code Status: Full Code Eliot Saucedo MD Hospital Medicine Admission and Anticipated Discharge Date Admission Date: May 14, 2022 Subjective the patient is a 66 year old woman with pmh rectal cancer s/p chemoradiation (~20 years ago), cervical/uterine cancer, h/o of chronic rectal bleeding s/p ostomy diversion (?11/2021), ESRD on HD (MWF), CAD s/p TN 2016, HTN, DM2 on insulin who presented with ongoing sacral wound infection. She recently was at [facility] where they did a surgical debridement and took bone cultures/pathology and was started on Daptomycin MWF with HD. She then left AMA from [place] because they felt they were not getting good care there. She reports that since chemoradiation, she has had chronic rectal bleeding requiring frequent hospitalizations. She eventually developed a sacral wound and eventually had a diverting colostomy to help with wound healing. Surgery evaluated her and recommended chemical debridement followed by likely surgical intervention and wound vac system. Renal consulted for HD. Started on daptomycin, cefepime, flagyl for now. Had an episode of hypoglycemia overnight wiht somnolence that responded initially to dextrose, then was hypoglycemic this morning again, given another amp of dextrose. started on IV hydrocortisone and IV levothyroxine for hypotension and hypothyroidism last night as well, per [facility] Endocrinology. Was slowly waking up this morning. Would open eyes to verbal stimuli and would follow commands. Review of Systems Review of Systems: Unobtainable due to cognitive status Physical Exam Constitutional: well developed, well nourished, + well hydrated, + lethargic (but responds and follows commands), + overweight and + edematous; no acute distress and not ill appearing Eyes: + anicteric sclerae, PERRL and EOM intact bilaterally; no conjunctival abnormality ENMT: Ears: no external ear abnormality Nose: no sinus tenderness and no epistaxis Mouth: no oropharynx abnormality, no oral mucosal abnormality, oral mucous membranes not dry and no dentition abnormality Throat: no tonsil abnormality Neck: trachea midline; no tracheal deviation and no nuchal rigidity Thyroid: normal thyroid; no thyromegaly and thyroid nontender Respiratory: normal respiratory effort; no respiratory distress, no labored breathing, does not use accessory muscles, not tachypneic and no audible wheezes Auscultation: lungs clear to auscultation bilaterally; no crackles, no rales, no rhonchi and no wheezes Cardiovascular: Rate/Rhythm: regular rhythm and + tachycardic Heart Sounds: normal S1 and normal S2; no gallop, no murmur and no cardiac rub Vessels: normal peripheral pulses Extremities: normal capillary refill and + edema Gastrointestinal (Abdomen): Inspection/Auscultation: normal bowel sounds, + abdominal edema, + abdominal surgical scar and + abdominal surgical incision (with partial dihiscence but no drainage or erythema); + abdomen abnormal to inspection (colostomy bag with dark stool contents in LLQ) and abdomen not distended Percussion/Palpation: abdomen soft; abdomen nontender, no guarding, abdomen not rigid and no hepatosplenomegaly Rectal Exam: + abnormal visual inspection of rectum (large sacral decub ulcer stage IV with eschar, necrosis, erythema at edges) Musculoskeletal: Head/Neck/Chest: normocephalic, head atraumatic and neck supple Spine: normal cervical ROM and no cervical spinal tenderness Extremities: strength 5/5 throughout; full ROM of extremities and no clubbing Skin: normal turgor, + lesion (sacral and abdominal wounds) and + ulcer (sacrum, stage IV/unstageable); no rashes, no induration, no jaundice, no dry skin and no erythema Neurologic: moves all extremities; no focal motor deficits Speech / Cognition: normal speech Motor/Sensory: no tremor, no fasciculations and no sensory deficit Cranial Nerves: PERRL, EOM intact bilaterally and tongue midline somnolent but moves all extremities to commands and follows other commands Genitourinary: no CVA tenderness Results & Data Results & Data ([facility]) Vital Signs (Past 12 Hours) Vital Signs Temp Pulse Resp BP BP Pulse Ox O2 Del Method 05/16/22 11:50 36.3 C L 73 19 92/55 L 98 Room Air 05/16/22 07:44 36.7 C 79 18 86/55 L 91 05/16/22 03:38 36.2 C L 76 15 85/60 L 90 Nasal Cannula Laboratory Results Short CBC 05/16/22 Range/Units 05:34 WBC 12.58 H (4.8-10.8) K/ul Hgb 8.6 L (12.0-16.0) g/dl Hct 27.0 L (34.1-44.9) % Plt Count 77 L (130-400) K/uL BMP 05/16/22 05:34 Sodium 129 L Potassium 5.1 Chloride 98 Carbon Dioxide 23 BUN 33 H Creatinine 4.38 H D Glucose 42 L* Calcium 7.9 L Liver Function 05/16/22 Range/Units 05:34 Total Bilirubin 1.1 H (0.2-1.0) mg/dl AST 105 H (13-39) U/L ALT 24 (7-52) U/L Alkaline Phosphatase 472 H (34-104) U/L Albumin 2.0 L (3.4-5.0) gm/dl Medications Administered Current Inpatient Medications Atorvastatin Calcium (Atorvastatin 40 Mg Tab) 40 mg PO QAM ROSA M Stop: 06/14/22 08:59 Last Admin: 05/16/22 08:51 Dose: 40 mg Collagenase (Collagenase Oint 30 Gm Tube) 1 appln EXT DAILY ROSA M Stop: 06/14/22 08:59 Last Admin: 05/16/22 08:50 Dose: 1 appln Dextrose (Dextrose 50% 50 Ml Syringe) 25 - 50 ml IV UD PRN; Protocol PRN Reason: Hypoglycemia Protocol Stop: 06/13/22 18:24 Last Admin: 05/16/22 11:55 Dose: 50 ml Gabapentin (Gabapentin 100 Mg Cap) 100 mg PO QAM ROSA M Stop: 06/14/22 08:59 Last Admin: 05/16/22 08:52 Dose: 100 mg Glucagon (Glucagon For Inj 1 Mg Vial) 1 mg SQ UD PRN; Protocol PRN Reason: Hypoglycemia Protocol Stop: 06/13/22 18:24 Glucose (Glucose 40% Gel 15 Gm Tube) 15 - 30 gm PO UD PRN; Protocol PRN Reason: Hypoglycemia Protocol Stop: 06/13/22 18:24 Glucose (Glucose 10 Tab/Tube) 4 - 8 tab PO UD PRN; Protocol PRN Reason: Hypoglycemia Treatment Stop: 06/13/22 18:24 Heparin Sodium (Porcine) (Heparin Sod 5,000 Unit/0.5 Ml Vial) 5,000 units SQ Q12 ROSA M Stop: 06/13/22 20:59 Last Admin: 05/16/22 08:52 Dose: 5,000 units Daptomycin 550 mg/ Syringe 11 mls @ 5.5 mls/min IV Q48H [facility]; Protocol Stop: 06/27/22 13:59 Cefepime HCl 1,000 mg/ Syringe 11.3 mls @ 5.5 mls/min IV Q24H [facility]; Protocol Stop: 05/16/22 19:59 Last Admin: 05/15/22 19:36 Dose: 5.5 mls/min Metronidazole (Flagyl) 500 mg in 100 mls @ 100 mls/hr IV Q12 [facility] Stop: 05/16/22 20:59 Last Infusion: 05/16/22 10:10 Dose: Infused Hydrocortisone Sodium (Succinate 50 mg/ Syringe) 1 mls @ 4 mls/min IV Q6H [facility] Stop: 06/14/22 21:59 Last Admin: 05/16/22 08:53 Dose: 4 mls/min Levothyroxine Sodium 100 mcg/ (Syringe) 5 mls @ 2 mls/min IV DAILY@0900 [facility]; Protocol Stop: 06/15/22 08:59 Last Admin: 05/16/22 10:10 Dose: 2 mls/min Insulin Aspart (Insulin Aspart Per Unit) 0 units SC ACHS [facility] Stop: 06/13/22 20:59 Last Admin: 05/16/22 11:58 Dose: Not Given Latanoprost (Latanoprost 0.005% Op Soln 2.5 Ml Btl) 1 drops OP QPM [facility] Stop: 06/13/22 20:59 Last Admin: 05/15/22 21:36 Dose: 1 drops Levothyroxine Sodium (Levothyroxine Sodium 137 Mcg Tablet) 137 mcg PO DAILYBB [facility] Stop: 06/14/22 06:29 Last Admin: 05/15/22 05:47 Dose: 137 mcg Metoprolol Succinate (Metoprolol Succ 25mg Ext Rel Tab) 25 mg PO QAM [facility] Stop: 06/14/22 08:59 Last Admin: 05/16/22 08:54 Dose: Not Given Midodrine (Midodrine Hcl 2.5 Mg Tab) 5 mg PO TID@0800,1200,1700 [facility] Stop: 06/14/22 07:59 Last Admin: 05/16/22 11:59 Dose: Not Given Miscellaneous (Carbohydrates For Hypoglycemia ) 15 - 30 gm PO UD PRN PRN Reason: Hypoglycemia Protocol Stop: 06/13/22 18:24 Miscellaneous Information (Pharmacy Glycemic Mgmt Consult) 1 each N/A UD PRN PRN Reason: Consult Stop: 06/13/22 18:24 Ondansetron HCl (Ondansetron Inj 2 Mg/Ml 2 Ml Vial) 4 mg IV Q6H PRN PRN Reason: Nausea Stop: 06/13/22 18:19 Pantoprazole Sodium (Pantoprazole 40 Mg Tab) 40 mg PO DAILY [facility] Stop: 06/14/22 08:59 Last Admin: 05/16/22 08:53 Dose: 40 mg (1) Osteomyelitis Osteomyelitis location: unspecified site Osteomyelitis type: unspecified type Qualified Code(s): M86.9 - Osteomyelitis, unspecified
[2022-05-16] MEDS ORDERED: DAPTOmycin 550 MG in SYRINGE 0 ML IV SCH (14:00)
--- NOTE | 2022-05-16 14:21 | Pharmacy Report ---
Pharmacy Glycemic Short Note 2 - Date of Service May 16, 2022 - Glycemic Short BSG Results (Last 24 hours): 05/15/22 05/15/22 05/16/22 16:27 20:32 05:34 Glucose 42 L* POC Glucose 98 81 05/16/22 05/16/22 05/16/22 06:39 06:57 08:48 Glucose POC Glucose 49 L* 134 H 74 05/16/22 05/16/22 05/16/22 10:14 11:46 11:48 Glucose POC Glucose 73 67 L* 60 L* 05/16/22 05/16/22 12:11 13:00 Glucose POC Glucose 165 H 132 H OUTPATIENT ANTIDIABETIC REGIMEN: * Basaglar 42 units HS - reports following [facility] ASSESSMENT: 05/16 * Patient received total of 21 units of insulin yesterday, of which 15 units were basal * Fasting BSG low in 40s, treated per hypoglycemia protocol. Even with decrease in basal dose yesterday, low this morning therefore will hold basal for now 05/15 * 66 year old admitted with osteo - continues on antibiotics today. Patient received total of 30 units of insulin yesterday, of which 20 units were basal insulin * Fasting BSG 124 mg/dL - PO intake poor today, will continue with reduced basal dose of 15-20 units HS * Continue stress of 2 novolog PLAN FOR INPATIENT GLYCEMIC CONTROL: * Hold outpatient oral diabetes medications * Basal insulin * Lantus - hold * Bolus insulin * NovoLog per scale ACHS or Q6hrs while NPO * Goal Range: Low 110 mg/dL - High 140 mg/dL * Correction Factor: 20 mg/dL/unit * Nutritional / Prandial insulin per carb ratio of 1 unit per -- grams CHO consumed
[2022-05-16] MEDS ORDERED: HYDROmorphone INJ 0.5 MG/0.5 ML SYR IV PRN (18:07)
[2022-05-16] MEDS ORDERED: KETOROLAC TROMETHAMINE 15 MG/ML VIAL IV PRN (18:45)
[2022-05-16] MEDS: LATANOPROST 0.005% OP SOLN 2.5 ML BTL OP SCH (20:24)
[2022-05-17] MEDS: MIDODRINE HCL 2.5 MG TAB PO SCH ×4 (03:22→17:03)
[2022-05-17] MEDS: HYDROCORTISONE SOD 50 MG in SYRINGE 0 ML IV SCH ×4 (03:47→21:10)
[2022-05-17] MEDS ORDERED: MIDODRINE HCL 2.5 MG TAB PO ONE (05:01)
[2022-05-17 06:32] LABS: Calcium 6.5 mg/dl (8.5-10.1); Est GFR (African American) 9.6 ml/min; Est GFR (Non-African American) 8.3 ml/min; Magnesium 1.8 mg/dl (1.7-2.4); Phosphorus 7.1 mg/dl (2.5-4.9); Potassium 6.1 mmol/L (3.5-5.1)
[2022-05-17] MEDS ORDERED: DEXTROSE 50% 50 ML SYRINGE IV STA (06:34)
[2022-05-17] MEDS ORDERED: STAT IV STA ×2 (06:34→08:25)
[2022-05-17] MEDS ORDERED: CALCIUM GLUCONATE 10% 1,000 MG in DEXTROSE 5% 50 ML IV ONE ×2 (06:45→08:25)
[2022-05-17] MEDS ORDERED: INSULIN HUMAN REGULAR PER UNIT 10 UNITS in SYRINGE 9.9 ML IV ONE (06:45)
[2022-05-17] MEDS ORDERED: SODIUM CHLORIDE 0.9% 1000ML 1,000 ML IV PRN (07:13)
--- NOTE | 2022-05-17 07:14 | Nephrology Progress Note ---
Date of Service May 17, 2022 Assessment & Plan (1) End-stage renal disease (ESRD): Plan: ESRD MWF at [facility] via dialysis catheter Last dialysed on 05/14 K up and volume overload worsening; new LBBB on ECG, tachypneic - cardiology has evaluated her; not a cardiac cath candidate; cardiology recommends dialysis - stat HD this am bedside/ in ICU (pt moving there now); hypotension has limited fluid removal at previous dialysis >> pressor support may well be needed; second choice for BP support would be albumin IV; peripheral vascular tech aware -max dose epo w/ tx (2) Osteomyelitis: Plan: - waiting surgical intervention - Continue on the MWF Daptomycin Admission and Anticipated Discharge Date Admission Date: May 14, 2022 Subjective had an unresponsive episode last evening; now up to 4L 02NC and K 6.1; tachypneic with new LBBB on ECG; + dyspnea, anxiety, fatigue; no n/v, no chest pain or palpitations; states repeatedly she wants "to go," wants "to ;" "can't take it anymore." when I ask her about not escalating care however she cannot consistently state preferences. Review of Systems Review of Systems: All systems reviewed & are unremarkable except as noted in Subjective Physical Exam Constitutional: well developed, well nourished, + acute distress (from dyspnea), + ill appearing and + obese Eyes: EOM intact bilaterally ENMT: Ears: no external ear abnormality Nose: no external nose abnormality Mouth: + dry oral mucous membranes Neck: no nuchal rigidity Respiratory: + labored breathing and + tachypneic; does not use accessory muscles and + not able to speak in complete sentence Auscultation: + diminished lung sounds Cardiovascular: Rate/Rhythm: + tachycardic Extremities: + edema (trace) Gastrointestinal (Abdomen): Inspection/Auscultation: normal bowel sounds Percussion/Palpation: abdomen soft; abdomen nontender Musculoskeletal: Extremities: + abnormal strength Skin: no rashes, warm and dry sacral wound not examined Neurologic: rider, fluent speech, no tremor Psychiatric: Orientation: oriented to person, oriented to place and cooperative Affect: + anxious affect Results & Data ([facility]) Vital Signs (Past 12 Hours) Vital Signs Temp Pulse Pulse Resp BP Pulse Ox O2 Del Method 05/17/22 05:16 36.4 C L 100 H 24 89/53 L 96 Nasal Cannula 05/17/22 04:00 18 94 Nasal Cannula 05/17/22 00:00 22 96 Nasal Cannula 05/16/22 23:04 36.5 C 90 20 97/66 L 96 Nasal Cannula 05/16/22 20:00 Nasal Cannula 05/16/22 20:00 22 93 Room Air 05/16/22 19:42 36.5 C 87 20 103/72 93 Room Air O2 Flow Rate 05/17/22 05:16 4 05/17/22 04:00 2 05/17/22 00:00 1.5 05/16/22 23:04 1.5 05/16/22 20:00 2 05/16/22 20:00 05/16/22 19:42 Laboratory Results 05/17/22 05:41 05/17/22 05:41 (1) Osteomyelitis Osteomyelitis location: unspecified site Osteomyelitis type: unspecified type Qualified Code(s): M86.9 - Osteomyelitis, unspecified
[2022-05-17 07:16] LABS: Hematocrit (blood only) 26.4 % (34.1-44.9); Hemoglobin 8.4 g/dl (12.0-16.0); Mean Corpuscular Hemoglobin 30.4 pg (25.0-34.0); Mean Corpuscular Hgb Conc 31.8 g/dL (32.0-36.0); Mean Corpuscular Volume 95.7 fL (80.0-100.0); Mean Platelet Volume 10.6 fL (9.4-12.3); Nucleated RBC # (auto) 0.18 K/uL (0-0); Nucleated RBC % (auto) 1.1 %; Platelet Count 109 K/uL (130-400); RDW Coefficient of Variation 22.7 % (11.5-14.5); RDW Standard Deviation 75.6 fL (36.4-46.3); Red Blood Count 2.76 M/uL (3.93-5.22); White Blood Count 15.76 K/ul (4.8-10.8)
[2022-05-17] MEDS ORDERED: LANTUS PER UNIT CHARGE SQ STA (07:36)
[2022-05-17 07:46] LABS: Acanthocytes 1+; Basophils # (auto) 0.01 K/uL (0-0.2); Basophils % (auto) 0.1 %; Echinocytes 2+; Immature Granulocytes # (auto) 0.13 K/uL (0.00-0.02); Immature Granulocytes % (auto) 0.8 %; Lymphocytes # (auto) 0.53 K/uL (1.2-3.4); Lymphocytes % (auto) 3.4 %; Macrocytosis Present; Monocytes # (auto) 0.42 K/uL (0.24-0.82); Monocytes % (auto) 2.7 %; Neutrophils # (auto) 14.67 K/uL (1.4-6.5); Poikilocytosis Present; Polychromasia 2+; Target Cells 1+
[2022-05-17] MEDS ORDERED: ALBUMIN 25% 12.5 GM/50 ML VIAL IV SCH ×2 (08:00→09:00)
[2022-05-17] MEDS ORDERED: MIDODRINE HCL 2.5 MG TAB PO SCH (08:00)
[2022-05-17] MEDS ORDERED: EPOETIN ALFA 20,000 UNITS/ML VIAL IV SCH (08:00)
[2022-05-17] MEDS: INSULIN ASPART PER UNIT SC SCH ×3 (08:33→18:47)
[2022-05-17] MEDS: METOPROLOL SUCC 25MG EXT REL TAB PO SCH (08:40)
[2022-05-17] MEDS: PANTOprazole 40 MG TAB PO SCH (08:40)
[2022-05-17] MEDS: GABAPENTIN 100 MG CAP PO SCH (08:40)
[2022-05-17] MEDS: ATORVASTATIN 40 MG TAB PO SCH (08:40)
--- NOTE | 2022-05-17 09:01 | Cardiology Progress Note ---
Date of Service May 17, 2022 Assessment & Plan (1) Preop cardiovascular exam: (2) Sepsis: (3) Thrombocytopenia: (4) Anemia: (5) Ulcer of sacral region, stage 4: (6) Osteomyelitis: (7) Decubitus ulcer of sacral area: (8) Acute hyponatremia: (9) End-stage renal disease (ESRD): (10) Chronic radiation proctitis: (11) Radiation necrosis of skin and subcutaneous: (12) Uterine cancer: (13) Breast CA: (14) Cancer of anorectum: (15) Diabetes: (16) Coronary artery disease: (17) Heart failure with preserved ejection fraction, borderline, class II: (18) PAD (peripheral artery disease): Plan Given her multiple comorbidities including her ischemic cardiomyopathy the patie nt would obviously be a very high risk for any adverse perioperative cardiovascular event. I would place her risk at or greater than 10% Unfortunately, no further cardiac testing or intervention would further lower this risk. Should the patient and or her family understand and accepting of this risk then I would see no need to delay from a cardiac standpoint Consideration may also be given to consultation with our palliative care colleagues to discuss goals of care I suspect her clinical deterioration this AM is due to significant volume overload and hyperkalemia there is a possibility that this is due to ACS, however, patient with known recent decrease in LV systolic function and cath deferred due to ongoing bleeding and the obvious need for antiplatelet agents with any intervention. The patient reportedly agreed to this plan as per outpatient notes At this point: I believe the most reasonable option is for the patient to undergo dialysis as scheduled I agree with it being performed in the ICU with likely need for pressor support There is a significant risk that this clinical deterioration will be fatal, however, given multiple comorbidities and current clinical condition, I do not see any other option High risk for ventricular tachycardia, amiodarone bolus and gtt would be the recommended antiarrhythmic agent in this event given ESRD Admission and Anticipated Discharge Date Admission Date: May 14, 2022 Subjective Notified by primary team this AM of change in condition. Became tachypneic with changing. Rhythm on monitor showed new wide complex rhythm. EKG performed: new LBBB. I attempted to call the patient's , no answer, voicemail asking him to call me back was left. Results & Data ([facility]) Vital Signs (Past 12 Hours) Vital Signs Temp Pulse Pulse Resp BP BP Pulse Ox 05/17/22 08:28 106/69 05/17/22 08:27 80/54 L 05/17/22 08:18 118 H 97/66 L 05/17/22 07:23 36.7 C 120 H 19 110/69 95 05/17/22 05:16 36.4 C L 100 H 24 89/53 L 96 05/17/22 04:00 18 94 05/17/22 00:00 22 96 05/16/22 23:04 36.5 C 90 20 97/66 L 96 O2 Del Method O2 Flow Rate 05/17/22 08:28 05/17/22 08:27 05/17/22 08:18 05/17/22 07:23 Nasal Cannula 3.0 05/17/22 05:16 Nasal Cannula 4 05/17/22 04:00 Nasal Cannula 2 05/17/22 00:00 Nasal Cannula 1.5 05/16/22 23:04 Nasal Cannula 1.5 (1) Decubitus ulcer of sacral area Pressure injury stage: stage 4 Qualified Code(s): L89.154 - Pressure ulcer of sacral region, stage 4 (2) Osteomyelitis Osteomyelitis location: unspecified site Osteomyelitis type: unspecified type Qualified Code(s): M86.9 - Osteomyelitis, unspecified
--- NOTE | 2022-05-17 09:07 | Communication Note ---
Date of Service: May 17, 2022 echocardiogram report from 05/11/22: Interpretation Summary The examination is limited quality but adequate for evaluation of the referral indication. Calculated LV ejection Fraction = 38% (bi-plane method of discs). There is diffuse hypokinesis to akinesis. No pericardial effusion is noted. A large left plerual effusion is present. Mild pulmonary hypertension is present.
[2022-05-17] MEDS ORDERED: STAT IV Infusion **Titration per Protocol STA (10:03)
[2022-05-17] MEDS: PHENYLEPHRINE HCL 20 MG in DEXTROSE 5% 500 ML IV SCH ×3 (10:15→19:54)
--- NOTE | 2022-05-17 10:22 | Critical Care Consultation ---
Date of Consultation May 17, 2022 Assessment & Plan (1) Sepsis: Reason Critically Ill: 66-year-old female here with a PMHx significant for ESRD on thrice weekly dialysis, CAD, PAD, and rectal cancer (f/p chemoradiation approximately 20 years ago), and DM2, who presented with sepsis secondary to sacral ulcer/osteomyelitis (awaiting surgical debridement) and was admitted for vasopressor support. Neuro - [facility] ICU: Negative Sedation: None Analgesia: IV Toradol as needed, IV Dilaudid as needed. Gabapentin 100 mg every morning Cardiac -history of CAD, PAD * CAD: Discussed with Dr. Emerson (cardiology). Patient has past medical history of OH with partial LAD obstruction treated medically (due to increased bleeding risk). * HFpEF: Home medications metoprolol 25 mg every morning, atorvastatin 40 mg every morning. * Hypotension: Initiated phenylephrine. Lactate 6.4, indicating poor perfusion. Albumin repletion initiated. On midodrine 5 mg 3 times daily --Elevated troponin Likely combination of type II OH as well as ongoing insults given the echo findings Not a candidate for heparin drip. Low blood pressure cannot give beta-blockers or DELPHINE inhibitor's Cardiology on board 2D echo 05/17/2022: EF 35%, grade 2 diastolic dysfunction, PASP 33 mmHg, moderate global hypokinesis of LV -- Shock Combination of sepsis plus cardiac Likely from sacral decubitus ulcer with osteomyelitis Patient also has new left bundle branch block with decreased ejection fraction Continue with phenylephrine for the time being. Respiratory - * Acute respiratory failure with hypoxia Secondary to volume overload with bilateral pleural effusion BiPAP nightly and as needed shortness of breath GI - N.p.o. RENAL/LYTES - * Hyponatremia, hyperkalemia, LUDIN. Electrolyte derangement likely secondary to ESRD, ongoing sepsis. * Continue dialysis as regularly scheduled. * Manage primary infectious process (see below: ID) - [No concerns at this time.] ENDO - Currently on hydrocortisone every 6 hours as endocrinology were thinking about myxedema coma. I highly doubt this is the case as TSH was only 22. We will try to gradually wean it off HEME - * Chronic anemia secondary to ESRD on dialysis. Currently on erythropoietin. ID - * Osteomyelitis: Sacral decubitus ulcer stage IV. Discontinued cefepime. Currently on Daptomycin. * Awaiting blood culture results. LINES/IV ACCESS - PIVs intact. DVT PROPHYLAXIS - [Heparin gtt.] Thank you for allowing us to be part of this patient's care. Please refer to Dr. Quintero's documentation for any further recommendations. (2) PAD (peripheral artery disease): (3) Heart failure with preserved ejection fraction, borderline, class II: (4) Coronary artery disease: (5) Ulcer of sacral region, stage 4: (6) Osteomyelitis: (7) End-stage renal disease (ESRD): Supervising Physician Co-Signing Physician Notes Dr. Brock was the resident-physician during care of patient. I separately evaluated patient for man portions of the history and the exam. I was present during the critical portion of medical decision making, and I discussed the case with the resident. I generally agree with the findings and plan except for any additions/exceptions noted. 66-year-old female past medical history of rectal cancer s/p chemoradiation approximate 20 years ago, cervical uterine cancer, history of chronic rectal bleeding s/p ostomy diversion, ESRD, dialysis on Tuesday and Tuesday, coronary artery disease s/p OH in 2016 was admitted to the hospital because of sacral wound infection. She was at [facility] but she signed out AMA over there. She was getting daptomycin over there. Patient was getting hypotensive on the floor and thus the reason ICU was consulted. At the time of examination patient blood pressure was systolic in the 70s. She was awake alert oriented x3 Not in any respiratory distress. She did complain of shortness of breath on laying flat. Denies any headache, no nausea or vomiting. She did complain of headache as well as mild chest pain. No fever or chills. Constitutional: No acute distress HEENT: EOMI, PERRLA Respiratory system: Decreased air entry bilaterally, no wheeze, no rhonchi, positive crackles bilaterally CVS: S1-S2 positive, no murmurs or gallops, distant heart sounds Abdomen: Soft, nontender, nondistended, positive bowel sounds x4, positive colo stomy Extremities: +2 pulses bilaterally radialis/ dorsalis pedis, no cyanosis, +2 edema bilateral lower extremity Neuro: Awake alert oriented x3 Psych: Normal mood and affect G/U: No Santiago --Prophylaxis VTE: IPC GI: Pantoprazole Lines: Peripheral, right-sided permacath Diet: N.p.o. Plan: Patient's respiratory failure is most likely from fluid overload as she has missed dialysis in the past. Hyperkalemia will also be resolved once the patient gets dialysis Metabolic encephalopathy is most likely combination of sepsis as well as hypotension I will start the patient on phenylephrine. Given the decreased ejection fraction keep MAP around 60-65 We will try to put a radial line in once the patient is finished hemodialysis BiPAP will be beneficial to the patient given decreased ejection fraction bilateral pleural effusion Continue with midodrine. Hold metoprolol Overall prognosis is poor. We will try to speak with the family to discuss goals of care. I have personally spent 58 minutes of critical care time in the direct management of this patient. This is a life/limb threatening event. This includes time spent evaluating patient, direct bedside care, chart review, placing orders, interpretation of diagnostic studies, discussion with consultants, patient, and/or family members regarding treatment decisions, as well as other required patient management activities. This time is exclusive of all separately billable procedures, and teaching time and separate from and in addition to any other critical care service time. History of Present Illness Reason for Consultation: Hemodynamic instability Attending Physician: Eliot Saucdeo MD History of Present Illness Patient is a 66-year-old female with history of ESRD (on HD 3x/wk), CAD, anorectal cancer s/p chemoradiation, as well as sacral ulcer secondary to chronic rectal bleeding (colostomy placed for wound healing), initially managed at [facility], who presented to [facility] after leaving [facility]. She was found to be in sepsis in the ED, with imaging showing large sacral ulcer with bone erosion and osteomyelitis, as well as underlying ascites and anasarca, and bilateral pleural effusions. She received daptomycin in the ED, which she been receiving at [place]. Surgery was consulted and she was tentatively scheduled for surgical debridement tomorrow. However, she became acutely hemodynamically unstable (tachycardic to the 120s, tachypneic to the mid 20s) with hypotension (which, she does appear to have at baseline). Critical care was consulted for vasopressor support, and she was subsequently transferred to the ICU following a bedside examination for continued pressor management. Allergies Allergy/AdvReac Type Severity Reaction Status Date / Time cephalexin Allergy Unknown HIVES Verified 02/15/22 11:16 fluorescein Allergy Unknown EYE Verified 02/15/22 11:16 SWELLING AND THROAT SWELLING lisinopril Allergy Unknown "CHOKING" Verified 02/15/22 11:16 meperidine Allergy Unknown NAUSEA Verified 02/15/22 11:16 Penicillins Allergy Unknown Rash Verified 05/14/22 15:16 Home Medications Medication Instructions Recorded Confirmed Type Daptomycin Iv 750 mg IV .Q FRI 05/14/22 05/14/22 History atorvastatin 40 mg tablet 40 mg PO QAM 05/14/22 05/14/22 History brimonidine 0.2 %-timolol 0.5 % 1 drp OPB AMHS 05/14/22 05/14/22 History eye drops daptomycin 500 mg intravenous 500 mg IV .ONCE A DAY ON 05/14/22 05/14/22 History solution fluconazole 200 mg tablet 200 mg PO QAM 05/14/22 05/14/22 History furosemide 20 mg tablet (Lasix) 20 mg PO QAM 05/14/22 05/14/22 History gabapentin 300 mg capsule 300 mg PO HS 05/14/22 05/14/22 History hydroxyzine HCl 25 mg tablet 25 mg PO Q6 PRN Anxiety 05/14/22 05/14/22 History insulin aspart U-100 100 unit/mL 0 unit subcut .PM MEAL 05/14/22 05/14/22 History (3 mL) subcutaneous pen (Novolog Flexpen U-100 Insulin aspart) insulin glargine 100 unit/mL (3 40 unit subcut QAM 05/14/22 05/14/22 History mL) subcutaneous pen (Basaglar KwikPen U-100 Insulin) latanoprost 0.005 % eye drops 1 drp OPB 05/14/22 05/14/22 History levothyroxine 137 mcg tablet 137 mcg PO DAILY 05/14/22 05/14/22 History loperamide 2 mg capsule 2 mg PO DIRECTED PRN Diarrhea 05/14/22 05/14/22 History midodrine 5 mg tablet 5 mg PO TID 05/14/22 05/14/22 History nitroglycerin 0.4 mg sublingual 0.4 mg sublingual DIRECTED PRN 05/14/22 05/14/22 History tablet (Nitrostat) Chest Pain ondansetron HCl 4 mg tablet 4 mg PO DIRECTED PRN Nausea 05/14/22 05/14/22 History oxycodone 5 mg/5 mL oral solution 2.5 mg PO DAILY PRN Severe Pain 05/14/22 05/14/22 History (Scale Score 7-10) pantoprazole 40 mg tablet,delayed 40 mg PO DAILY 05/14/22 05/14/22 History release ropinirole 0.25 mg tablet 0.25 mg PO HS 05/14/22 05/14/22 History sodium hypochlorite 0.25 % solution 1 applic topical DAILY 05/14/22 05/14/22 History triamcinolone acetonide 0.1 % 1 applic topical DIRECTED 05/14/22 05/14/22 History topical cream Patient History Medical History Accelerating angina Anemia due to stage 5 chronic kidney disease treated with erythropoietin Atherosclerosis of [place] arteries of extremities with rest pain, left leg Cancer of anorectal junction Cat bite of left forearm Cervical cancer Chronic lower GI bleeding Chronic radiation dermatitis Chronic stable angina CKD (chronic kidney disease) stage 5, GFR less than 15 ml/min CKD, patient preferred treatment modality in-center hemodialysis Closed fracture of phalanx of left fifth toe Colonic polyp Coronary artery disease 50% lad stenosis, an 80% obtuse marginal stenosis, and a 50% PDA stenosis. It should be noted her PDA arose from her left circumflex. Demand ischemia of myocardium DM type 2 with diabetic peripheral neuropathy Encounter for colorectal cancer screening 02/10/07 ESRD (end stage renal disease) on dialysis Heart failure with preserved ejection fraction, borderline, class II History of treatment of incomplete miscarriage x3 History of hyperbaric oxygen therapy 07/2011, 11/2011, 60 treatments. History of rectal or anal cancer HTN (hypertension) Hx of barium enema Hx of mammogram Hyperlipidemia Hyperparathyroidism Hyponatremia Hypothyroidism Injection of surface of both eyes Injection of eye drug, Lucentis 0.3mg by Dr. Taveras Iron deficiency anemia due to chronic blood loss Major depressive disorder Melanoma of back Myocardial infarction Non-compliance Other pancytopenia PAD (peripheral artery disease) Proliferative diabetic retinopathy of both eyes without macular edema associated with diabetes mellitus due to underlying condition Radiation proctitis Retinal edema Retinal lesion S/P arteriogram of extremity Thrombocytopenia Type 2 diabetes mellitus Uncontrolled type 2 diabetes mellitus with retinopathy of left eye, with long- term current use of insulin Uterine cancer Vitreous hemorrhage of right eye Surgical History H/O cataract removal with insertion of prosthetic lens H/O colonoscopy adhesions and radiation colitis precluded advancing scope through the sigmoid. Exam discontinued. H/O eye surgery partial removal of eye fluid, bilateral H/O laparoscopy appendectomy History of breast surgery left breast, 1982 History of insertion of tunneled central venous catheter (CVC) with port History of revascularization procedure of lower extremity Hx of angioplasty Hx of biopsy benign right breast biopsy about 20 years ago. Hx of colonoscopy 08/31/2017, multiple colonic angioectasias from prior radiation/narrowed and scarred left colon from multiple prior surgeries/colonoscopy flexible proximal diagnositic performed by Chandler Gill. S/P laser trabeculoplasty of eye S/P tonsillectomy Status post total abdominal hysterectomy Social History Smoking Status: Never smoker Hx Alcohol Use: No Hx Substance Use: No Preferred Language: Jordanian Communication Ability: Effective Beliefs That Will Affect Care: None marital status: Current Living Situation: Spouse current occupational status: employed current occupation: has own salon How many Children do You have: 1 How many Children do You have Comment: special needs child Feels Safe at Home: Yes Safety Concerns: Feels Safe At This Time caffeine: No Assistive Devices: None Review of Systems 2 Review of Systems: All systems reviewed & are unremarkable except as noted in HPI & below Physical Exam Physical Exam: General: Ill-appearing but otherwise alert, interactive, and in no acute distress. HEENT: Normocephalic, atraumatic. EOM intact. Good conjugate gaze. Nares patent. Moist mucosal membranes. Neck: Supple. No lymphadenopathy. Normal ROM. CV: Tachycardic. Regular rhythm. No murmurs, gallops, or rubs. 2+ pitting pedal edema to mid murphy bilaterally. Respiratory: Normal respiratory effort. Lungs clear to auscultation bilaterally. No crackles, rhonchi, or wheezes. Abdomen: Soft, nondistended abdomen. No bruits heard on auscultation. No tenderness to deep palpation. No guarding or rebound. Ostomy bag on the left- no surrounding erythema or irritation. Neuro: Alert and oriented x3. Skin: Unable to assess sacral decubitus ulcer at this time. Please refer to surgery consult note. Results & Data Results & Data ([facility]) Vital Signs (Past 12 Hours) Vital Signs Temp Pulse Pulse Pulse Resp BP BP 05/17/22 10:10 102 H 23 05/17/22 08:30 05/17/22 08:01 103 H 05/17/22 08:00 26 H 05/17/22 08:28 106/69 05/17/22 08:27 80/54 L 05/17/22 08:18 118 H 97/66 L 05/17/22 07:23 36.7 C 120 H 19 110/69 05/17/22 05:16 36.4 C L 100 H 24 89/53 L 05/17/22 04:00 18 05/17/22 00:00 22 05/16/22 23:04 36.5 C 90 20 97/66 L Pulse Ox O2 Del Method O2 Flow Rate FiO2 05/17/22 10:10 97 40 05/17/22 08:30 Nasal Cannula 4 05/17/22 08:01 05/17/22 08:00 92 Nasal Cannula 4 05/17/22 08:28 05/17/22 08:27 05/17/22 08:18 05/17/22 07:23 95 Nasal Cannula 3.0 05/17/22 05:16 96 Nasal Cannula 4 05/17/22 04:00 94 Nasal Cannula 2 05/17/22 00:00 96 Nasal Cannula 1.5 05/16/22 23:04 96 Nasal Cannula 1.5 Laboratory Results 05/17/22 07:08 05/17/22 09:35 Resident Activity Tracking Resident Involvement: Resident Care Provided Care Provided: Adult [facility] Medicine (1) Osteomyelitis Osteomyelitis location: unspecified site Osteomyelitis type: unspecified type Qualified Code(s): M86.9 - Osteomyelitis, unspecified
[2022-05-17 10:35] LABS: C Reactive Protein 13.26 mg/dl (0-0.5)
[2022-05-17 10:53] LABS: BUN Creatinine Ratio 8.4 (10-20); Calcium 8.2 mg/dl (8.5-10.1); Creatinine Clr Calc Pharmacy 11.2 ml/min; Est GFR (African American) 8.9 ml/min; Est GFR (Non-African American) 7.7 ml/min; Potassium 5.3 mmol/L (3.5-5.1); Troponin I High Sensitivity 36.5 pg/ml (0-14)
--- NOTE | 2022-05-17 12:04 | Pharmacy Report ---
Pharmacy Glycemic Short Note 2 - Date of Service May 17, 2022 - Glycemic Short BSG Results (Last 24 hours): 05/16/22 05/16/22 05/16/22 12:11 13:00 16:31 Glucose POC Glucose 165 H 132 H 106 H 05/16/22 05/17/22 05/17/22 20:42 03:11 05:41 Glucose 222 H POC Glucose 150 H 221 H 05/17/22 05/17/22 05/17/22 07:18 07:19 09:35 Glucose 206 H POC Glucose 320 H* 321 H* 05/17/22 09:37 Glucose POC Glucose 222 H OUTPATIENT ANTIDIABETIC REGIMEN: * Basaglar 42 units HS - reports following MTM clinic ASSESSMENT: 05/17 * Patient transferred to the ICU this AM for pressure support - phenylephrine initiated as well as HD. Patient remains on hydrocortisone. * Hyperkalemia prior to HD today - D50 and insulin admin contributing to BSG > 300 mg/dL, however, BSG overnight was also elevated to 221 mg/dL. * Goal BSG range for ICU patient 140-180 mg/dL. However, as hesitant to provide basal insulin at this time due to severe hypoglycemia on 05/16, will instead utilize lower goal BSG for Novolog and therefore provide some "basal" insulin if BSG's remain above 140 mg/dL * Will add CHO ratio for now due to increased BSG and patient ordered diet. Scheduled for NPO today at midnight in anticipation of possible surgical intervention tomorrow 05/16 * Patient received total of 21 units of insulin yesterday, of which 15 units were basal * Fasting BSG low in 40s, treated per hypoglycemia protocol. Even with decrease in basal dose yesterday, low this morning therefore will hold basal for now 05/15 * 66 year old admitted with osteo - continues on antibiotics today. Patient received total of 30 units of insulin yesterday, of which 20 units were basal insulin * Fasting BSG 124 mg/dL - PO intake poor today, will continue with reduced basal dose of 15-20 units HS * Continue stress of 2 novolog PLAN FOR INPATIENT GLYCEMIC CONTROL: * Hold outpatient oral diabetes medications * Basal insulin * Lantus - hold * Bolus insulin * NovoLog per scale ACHS or Q6hrs while NPO * Goal Range: Low 110 mg/dL - High 140 mg/dL * Correction Factor: 20 mg/dL/unit * Nutritional / Prandial insulin per carb ratio of 1 unit per 9 grams CHO consumed
--- NOTE | 2022-05-17 12:19 | Surgery Progress Note ---
Date of Service May 17, 2022 Assessment & Plan (1) Ulcer of sacral region, stage 4: Plan: Events noted from this AM. Patient developed tachycardia, tachypnea and hypotension... sent to ICU for BP support Labs reveal WBC 15, K: 5.3 (6.1), Cr: 5.3, Lactic acid: 6.4 Currently undergoing HD and on phenylephrine...planning to remove 3L today, pt presumed fluid overload May consider another HD session tomorrow per projection engineer Did not evaluate sacral wound at this time due to patient's current status, but will benefit from surgical debridement Tentatively on the schedule for tomorrow pending patient's clinical status...deemed high risk by cardiology NPO at midnight Admission and Anticipated Discharge Date Admission Date: May 14, 2022 Subjective Patient transferred to ICU this AM given unstable vitals. She is resting currently on BiPap and undergoing dialysis. Physical Exam Physical Exam: awake on bipap Skin: did not evaluate as patient undergoing dialysis session and pt wearing Bipap Results & Data ([facility]) Vital Signs (Past 12 Hours) Vital Signs Temp Pulse Pulse Pulse Pulse Resp BP 05/17/22 11:55 93 H 97/64 L 05/17/22 12:09 92 H 16 05/17/22 12:09 91/58 L 05/17/22 12:02 90 12 05/17/22 12:00 87 10 L 05/17/22 12:00 71/58 L 05/17/22 11:59 89 8 L 05/17/22 11:59 97/64 L 05/17/22 11:55 89 15 05/17/22 11:45 93 H 21 05/17/22 11:44 102/37 L 05/17/22 11:44 93 H 10 L 05/17/22 11:42 93 H 12 05/17/22 11:30 96 H 10 L 05/17/22 11:25 99 H 16 05/17/22 11:17 69/52 L 05/17/22 11:17 93 H 17 05/17/22 11:16 62/46 L 05/17/22 11:16 94 H 12 05/17/22 11:15 94 H 12 05/17/22 11:09 74/62 L 05/17/22 11:09 96 H 19 05/17/22 11:00 93 H 17 05/17/22 11:00 89/64 L 05/17/22 11:40 93 H 64/43 L 05/17/22 11:25 99 H 96/74 L 05/17/22 11:00 93 H 89/64 L 05/17/22 11:15 94 H 62/46 L 05/17/22 10:46 96 H 80/63 L 05/17/22 10:32 96 H 115/47 L 05/17/22 10:09 36.4 C L 100 H 05/17/22 10:54 93/54 L 05/17/22 10:54 94 H 18 05/17/22 10:48 80/63 L 05/17/22 10:48 95 H 17 05/17/22 10:46 97 H 24 05/17/22 10:45 98 H 29 H 05/17/22 10:39 112/60 05/17/22 10:39 96 H 17 05/17/22 10:33 97 H 13 05/17/22 10:33 115/47 L 05/17/22 10:30 97 H 16 05/17/22 10:24 99 H 21 05/17/22 10:15 100 H 23 05/17/22 10:09 95/49 L 05/17/22 10:09 103 H 16 05/17/22 10:00 100 H 19 05/17/22 09:54 94/37 L 05/17/22 09:54 101 H 23 05/17/22 09:45 101 H 21 05/17/22 09:40 101 H 18 05/17/22 09:40 84/50 L 05/17/22 09:30 105 H 19 05/17/22 09:24 87/57 L 05/17/22 09:24 106 H 17 05/17/22 09:15 104 H 17 05/17/22 09:15 78/55 L 05/17/22 09:10 106 H 21 05/17/22 09:10 77/66 L 05/17/22 09:00 107 H 0 L 05/17/22 10:00 05/17/22 10:10 102 H 23 05/17/22 08:30 05/17/22 08:01 103 H 05/17/22 08:00 26 H 05/17/22 08:28 05/17/22 08:27 07/25/22 08:18 118 H 05/17/22 07:23 36.7 C 120 H 19 05/17/22 05:16 36.4 C L 100 H 24 05/17/22 04:00 18 BP BP Pulse Ox O2 Del Method O2 Flow Rate FiO2 05/17/22 11:55 05/17/22 12:09 98 05/17/22 12:09 05/17/22 12:02 97 05/17/22 12:00 97 05/17/22 12:00 05/17/22 11:59 98 05/17/22 11:59 05/17/22 11:55 95 05/17/22 11:45 97 05/17/22 11:44 05/17/22 11:44 97 05/17/22 11:42 97 05/17/22 11:30 95 05/17/22 11:25 96 05/17/22 11:17 05/17/22 11:17 96 05/17/22 11:16 05/17/22 11:16 98 05/17/22 11:15 98 05/17/22 11:09 05/17/22 11:09 98 05/17/22 11:00 98 05/17/22 11:00 05/17/22 11:40 05/17/22 11:25 05/17/22 11:00 05/17/22 11:15 05/17/22 10:46 05/17/22 10:32 05/17/22 10:09 05/17/22 10:54 05/17/22 10:54 98 05/17/22 10:48 05/17/22 10:48 99 05/17/22 10:46 99 05/17/22 10:45 99 05/17/22 10:39 05/17/22 10:39 99 05/17/22 10:33 99 05/17/22 10:33 05/17/22 10:30 98 05/17/22 10:24 97 05/17/22 10:15 97 05/17/22 10:09 05/17/22 10:09 97 05/17/22 10:00 96 05/17/22 09:54 05/17/22 09:54 96 05/17/22 09:45 96 05/17/22 09:40 96 05/17/22 09:40 05/17/22 09:30 97 05/17/22 09:24 05/17/22 09:24 98 05/17/22 09:15 93 05/17/22 09:15 05/17/22 09:10 93 05/17/22 09:10 05/17/22 09:00 05/17/22 10:00 BiPAP 40 05/17/22 10:10 97 40 05/17/22 08:30 Nasal Cannula 4 05/17/22 08:01 05/17/22 08:00 92 Nasal Cannula 4 05/17/22 08:28 106/69 05/17/22 08:27 80/54 L 05/17/22 08:18 97/66 L 05/17/22 07:23 110/69 95 Nasal Cannula 3.0 05/17/22 05:16 89/53 L 96 Nasal Cannula 4 05/17/22 04:00 94 Nasal Cannula 2 PG Care Time/CCT Total # of Minutes Spent Total Time Spent with Patient: Total time spent is greater than 50% in coordination of care (as documented) at patient's floor/unit and/or counseling patient: Coding Level of Care Code 54856 Subseq Hosp Care Lvl 1 Diagnoses Ulcer of sacral region, stage 4 L98.429
[2022-05-17] MEDS: HEPARIN SOD 5,000 UNIT/0.5 ML VIAL SQ SCH ×2 (12:26→21:10)
[2022-05-17] MEDS: COLLAGENASE OINT 30 GM TUBE EXT SCH (12:26)
--- NOTE | 2022-05-17 13:33 | Hospitalist Progress Note ---
Date of Service May 17, 2022 Assessment & Plan (1) Tachycardia: Plan: - HR to 120s this morning with chest pain - ECG showed wide complex tachycardia concerning for vtach - likely due to the setting of hypoxia with volume overload and hyperkalemia to >6 with need for HD - BP remained close to baseline but was tenuous - transferred to ICU for closer monitoring and HD session - on BiPAP to help with work of breathing and oxygenation - will monitor in ICU for now (2) Sepsis: Plan: - patient with tachycardia, leukocytosis, lactic acidosis - source likely stage IV sacral ulcer with likely underlying osteomyelitis - broad spectrum abx - surgical consult - telemetry monitoring (3) Osteomyelitis: Plan: - 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 - received surgical debridement at [facility] with bone culture/biopsy - was on daptomycin there with 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 - tachycardia, leukocytosis, likely osteo on CT scan in ED - blood cultures drawn here - started on daptmycin in the ED - will continue daptomycin for now - continue cefepime and flagyl pending cultures after 24-48 hours - general surgery consulted - recommend chemical debridement with santyl - will eventually need surgical debridement in the OR and wound vac - possibly Tuesday pending clinical status - Cardiology recommends no further work up as it will not improve her risk - patient is high risk for surgery - telemetry monitoring for now (4) Leukocytosis: Plan: - in the setting of sepsis - IV abx as above - trend WBC (5) Ulcer of sacral region, stage 4: Plan: - IV abx and surgical plan as above (6) Radiation necrosis of skin and subcutaneous: Plan: - see above (7) Acute hyponatremia: Plan: - likely due to sepsis and decrease po intake - unclear degree of acuity as no prior labs available at this time - hold IVF for now as patient is hemodynamically stable and is ESRD - trend Na - monitor on AM labs (8) Lactic acidosis: Plan: - likely in the setting of sepsis - will trend to clearance - IV abx as above (9) End-stage renal disease (ESRD): Plan: - has been on HD for the past year, per patient - HD catheter in right chest - no evidence of infection at catheter site - renal consulted - normal schedule is MWF (10) Diabetes: Plan: - on insulin at home - reportedly on Lantus ?42 units - will give 30 units lantus tonight - reduced to 10 units for episode of hypoglycemia - SSI per protocol - FSG AC+HS - diabetic diet (11) Hypothyroid: Plan: - patient is hypothyroid on labs with TSH 22, FT4 <0.25 - unclear if patient taking medication appropriately - started on IV levothyroxine 100mcg daily - recheck FT4 daily - recheck TSH in 4-6 weeks (12) Anemia: Plan: - chronic anemia in the setting of ESRD - was reportedly getting ?EPO injections with HD per Patient - continue EPO per renal - no signs of active bleeding at [facility] - Hgb 8.8 with unclear baseline but have record of 8.8 in 01/2022 - will monitor for now (13) Thrombocytopenia: Plan: - unclear chronicity - ?bone marrow suppression in the setting of sepsis, ESRD, chronical illness - no signs of bleeding - will monitor (14) Coagulopathy: Plan: - patient not on warfarin - in the setting of sepsis - will trend INR daily for now Plan DVT ppx: heparin SC Code Status: Full Code Eliot Saucedo MD Hospital Medicine Admission and Anticipated Discharge Date Admission Date: May 14, 2022 Subjective the patient is a 66 year old woman with pmh rectal cancer s/p chemoradiation (~20 years ago), cervical/uterine cancer, h/o of chronic rectal bleeding s/p ostomy diversion (?11/2021), ESRD on HD (MWF), CAD s/p OR 2016, HTN, DM2 on insulin who presented with ongoing sacral wound infection. She recently was at [facility] where they did a surgical debridement and took bone cultures/pathology and was started on Daptomycin MWF with HD. She then left AMA from [facility] because they felt they were not getting good care there. She reports that since chemoradiation, she has had chronic rectal bleeding requiring frequent hospitalizations. She eventually developed a sacral wound and eventually had a diverting colostomy to help with wound healing. Surgery evaluated her and recommended chemical debridement followed by likely surgical intervention and wound vac system. Renal consulted for HD. Started on daptomycin, cefepime, flagyl. Patient had episode of unstable vitals including elevated HR and went to ICU for close monitoring of BP and HR for HD session. Patient was somnolent this morning but responded to verbal stimuli. was oreinted to place and time and self but was slow to answer at times and got confused but corrected herself. She complained of chest pain and some problems breathing. Cardiology, renal, ICU evaluated the patient and she was moved to ICU for HR 110-120s with possible vtach and to undergo HD as BP was 80s-90s/60s although she does run low. Review of Systems Review of Systems: All systems reviewed & are unremarkable except as noted in Subjective Physical Exam Constitutional: well developed, well nourished, + well hydrated, + lethargic (but responds and follows commands), + overweight and + edematous; no acute distress and not ill appearing Eyes: + anicteric sclerae, PERRL and EOM intact bilaterally; no conjunctival abnormality ENMT: Ears: no external ear abnormality Nose: no sinus tenderness and no epistaxis Mouth: no oropharynx abnormality, no oral mucosal abnormality, oral mucous membranes not dry and no dentition abnormality Throat: no tonsil abnormality Neck: trachea midline; no tracheal deviation and no nuchal rigidity Thyroid: normal thyroid; no thyromegaly and thyroid nontender Respiratory: normal respiratory effort; no respiratory distress, no labored breathing, does not use accessory muscles, not tachypneic and no audible wheezes Auscultation: lungs clear to auscultation bilaterally; no crackles, no rales, no rhonchi and no wheezes Cardiovascular: Rate/Rhythm: regular rhythm and + tachycardic Heart Sounds: normal S1 and normal S2; no gallop, no murmur and no cardiac rub Vessels: normal peripheral pulses Extremities: normal capillary refill and + edema Gastrointestinal (Abdomen): Inspection/Auscultation: normal bowel sounds, + abdominal edema, + abdominal surgical scar and + abdominal surgical incision (with partial dihiscence but no drainage or erythema); + abdomen abnormal to inspection (colostomy bag with dark stool contents in LLQ) and abdomen not distended Percussion/Palpation: abdomen soft; abdomen nontender, no guarding, abdomen not rigid and no hepatosplenomegaly Rectal Exam: + abnormal visual inspection of rectum (large sacral decub ulcer stage IV with eschar, necrosis, erythema at edges) Musculoskeletal: Head/Neck/Chest: normocephalic, head atraumatic and neck supple Spine: normal cervical ROM and no cervical spinal tenderness Extremities: strength 5/5 throughout; full ROM of extremities and no clubbing Skin: normal turgor, + lesion (sacral and abdominal wounds) and + ulcer (sacrum, stage IV/unstageable); no rashes, no induration, no jaundice, no dry skin and no erythema Neurologic: moves all extremities and awake; no focal motor deficits Speech / Cognition: normal speech Motor/Sensory: no tremor, no fasciculations and no sensory deficit Cranial Nerves: PERRL, EOM intact bilaterally and tongue midline Psychiatric: Orientation: alert, oriented x 3 and cooperative Speech: normal rate/rhythm/volume of speech Affect: euthymic affect Genitourinary: no CVA tenderness Lymphatic: no lymphadenopathy and no lymphedema Results & Data Results & Data ([facility]) Vital Signs (Past 12 Hours) Vital Signs Temp Pulse Pulse Pulse Pulse Resp BP 05/17/22 13:03 94 H 100/60 05/17/22 12:47 98 H 103/51 L 05/17/22 12:33 93 H 92/57 L 05/17/22 12:21 89 92/60 L 05/17/22 12:09 92 H 91/58 L 05/17/22 11:55 93 H 97/64 L 05/17/22 12:09 92 H 16 05/17/22 12:09 91/58 L 05/17/22 12:02 90 12 05/17/22 12:00 87 10 L 05/17/22 12:00 71/58 L 05/17/22 11:59 89 8 L 05/17/22 11:59 97/64 L 05/17/22 11:55 89 15 05/17/22 11:45 93 H 21 05/17/22 11:44 102/37 L 05/17/22 11:44 93 H 10 L 05/17/22 11:42 93 H 12 05/17/22 11:30 96 H 10 L 05/17/22 11:25 99 H 16 05/17/22 11:17 69/52 L 05/17/22 11:17 93 H 17 05/17/22 11:16 62/46 L 05/17/22 11:16 94 H 12 05/17/22 11:15 94 H 12 05/17/22 11:09 74/62 L 05/17/22 11:09 96 H 19 05/17/22 11:00 93 H 17 05/17/22 11:00 89/64 L 05/17/22 11:40 93 H 64/43 L 05/17/22 11:25 99 H 96/74 L 05/17/22 11:00 93 H 89/64 L 05/17/22 11:15 94 H 62/46 L 05/17/22 10:46 96 H 80/63 L 05/17/22 10:32 96 H 115/47 L 05/17/22 10:09 36.4 C L 100 H 05/17/22 10:54 93/54 L 05/17/22 10:54 94 H 18 05/17/22 10:48 80/63 L 05/17/22 10:48 95 H 17 05/17/22 10:46 97 H 24 05/17/22 10:45 98 H 29 H 05/17/22 10:39 112/60 05/17/22 10:39 96 H 17 05/17/22 10:33 97 H 13 05/17/22 10:33 115/47 L 05/17/22 10:30 97 H 16 05/17/22 10:24 99 H 21 05/17/22 10:15 100 H 23 05/17/22 10:09 95/49 L 05/17/22 10:09 103 H 16 05/17/22 10:00 100 H 19 05/17/22 09:54 94/37 L 05/17/22 09:54 101 H 23 05/17/22 09:45 101 H 21 05/17/22 09:40 101 H 18 05/17/22 09:40 84/50 L 05/17/22 09:30 105 H 19 05/17/22 09:24 87/57 L 05/17/22 09:24 106 H 17 05/17/22 09:15 104 H 17 05/17/22 09:15 78/55 L 05/17/22 09:10 106 H 21 05/17/22 09:10 77/66 L 05/17/22 09:00 107 H 0 L 05/17/22 10:00 05/17/22 10:10 102 H 23 05/17/22 08:30 05/17/22 08:01 103 H 05/17/22 08:00 26 H 05/17/22 08:28 05/17/22 08:27 05/17/22 08:18 118 H 05/17/22 07:23 36.7 C 120 H 19 05/17/22 05:16 36.4 C L 100 H 24 05/17/22 04:00 18 BP BP Pulse Ox O2 Del Method O2 Flow Rate FiO2 05/17/22 13:03 05/17/22 12:47 05/17/22 12:33 05/17/22 12:21 05/17/22 12:09 05/17/22 11:55 05/17/22 12:09 98 05/17/22 12:09 05/17/22 12:02 97 05/17/22 12:00 97 05/17/22 12:00 05/17/22 11:59 98 05/17/22 11:59 05/17/22 11:55 95 05/17/22 11:45 97 05/17/22 11:44 05/17/22 11:44 97 05/17/22 11:42 97 05/17/22 11:30 95 05/17/22 11:25 96 05/17/22 11:17 05/17/22 11:17 96 05/17/22 11:16 05/17/22 11:16 98 05/17/22 11:15 98 05/17/22 11:09 05/17/22 11:09 98 05/17/22 11:00 98 05/17/22 11:00 05/17/22 11:40 05/17/22 11:25 05/17/22 11:00 05/17/22 11:15 05/17/22 10:46 05/17/22 10:32 05/17/22 10:09 05/17/22 10:54 05/17/22 10:54 98 05/17/22 10:48 05/17/22 10:48 99 05/17/22 10:46 99 05/17/22 10:45 99 05/17/22 10:39 05/17/22 10:39 99 05/17/22 10:33 99 05/17/22 10:33 05/17/22 10:30 98 05/17/22 10:24 97 05/17/22 10:15 97 05/17/22 10:09 05/17/22 10:09 97 05/17/22 10:00 96 05/17/22 09:54 05/17/22 09:54 96 05/17/22 09:45 96 05/17/22 09:40 96 05/17/22 09:40 05/17/22 09:30 97 05/17/22 09:24 05/17/22 09:24 98 05/17/22 09:15 93 05/17/22 09:15 05/17/22 09:10 93 05/17/22 09:10 05/17/22 09:00 05/17/22 10:00 BiPAP 40 05/17/22 10:10 97 40 05/17/22 08:30 Nasal Cannula 4 05/17/22 08:01 05/17/22 08:00 92 Nasal Cannula 4 05/17/22 08:28 106/69 05/17/22 08:27 80/54 L 05/17/22 08:18 97/66 L 05/17/22 07:23 110/69 95 Nasal Cannula 3.0 05/17/22 05:16 89/53 L 96 Nasal Cannula 4 05/17/22 04:00 94 Nasal Cannula 2 Laboratory Results Short CBC 05/17/22 05/17/22 Range/Units 05:41 07:08 WBC Cancelled 15.76 H Hgb Cancelled 8.4 L Hct Cancelled 26.4 L Plt Count Cancelled 109 L BMP 05/17/22 05/17/22 05:41 09:35 Sodium 128 L 127 L Potassium 6.1 H* 5.3 H Chloride 98 95 L Carbon Dioxide 19 L 15 L BUN 45 H 45 H Creatinine 5.01 H* D 5.34 H* D Glucose 222 H 206 H Calcium 6.5 L 8.2 L Cardiac Enzymes 05/17/22 Range/Units 09:35 Total Creatine Kinase 60 (26-192) U/L Medications Administered Current Inpatient Medications Atorvastatin Calcium (Atorvastatin 40 Mg Tab) 40 mg PO QAM ROSA M Stop: 06/14/22 08:59 Last Admin: 05/17/22 08:40 Dose: Not Given Collagenase (Collagenase Oint 30 Gm Tube) 1 appln EXT DAILY ROS[facility] M Stop: 06/14/22 08:59 Last Admin: 05/17/22 12:26 Dose: 1 appln Dextrose (Dextrose 50% 50 Ml Syringe) 25 - 50 ml IV UD PRN; Protocol PRN Reason: Hypoglycemia Protocol Stop: 06/13/22 18:24 Last Admin: 05/16/22 11:55 Dose: 50 ml Epoetin Felipe (Epoetin Felipe 20,000 Units/Ml Vial) 20,000 units IV TODAY@0800 [facility] Stop: 05/17/22 23:59 Last Admin: 05/17/22 12:10 Dose: 20,000 units Gabapentin (Gabapentin 100 Mg Cap) 100 mg PO QAM ROS[facility] M Stop: 06/14/22 08:59 Last Admin: 05/17/22 08:40 Dose: Not Given Glucagon (Glucagon For Inj 1 Mg Vial) 1 mg SQ UD PRN; Protocol PRN Reason: Hypoglycemia Protocol Stop: 06/13/22 18:24 Glucose (Glucose 40% Gel 15 Gm Tube) 15 - 30 gm PO UD PRN; Protocol PRN Reason: Hypoglycemia Protocol Stop: 06/13/22 18:24 Glucose (Glucose 10 Tab/Tube) 4 - 8 tab PO UD PRN; Protocol PRN Reason: Hypoglycemia Treatment Stop: 06/13/22 18:24 Heparin Sodium (Porcine) (Heparin Sod 5,000 Unit/0.5 Ml Vial) 5,000 units SQ Q12 [facility] M Stop: 06/13/22 20:59 Last Admin: 05/17/22 12:26 Dose: Not Given Hydromorphone HCl (Hydromorphone Inj 0.5 Mg/0.5 Ml Syr) 0.5 mg IV Q6H PRN PRN Reason: Breakthrough Pain Stop: 05/30/22 18:06 Daptomycin 550 mg/ Syringe 11 mls @ 5.5 mls/min IV Q48H [facility]; Protocol Stop: 06/27/22 13:59 Last Admin: 05/16/22 14:12 Dose: 5.5 mls/min Hydrocortisone Sodium (Succinate 50 mg/ Syringe) 1 mls @ 4 mls/min IV Q6H [facility] Stop: 06/14/22 21:59 Last Admin: 05/17/22 10:08 Dose: 4 mls/min Levothyroxine Sodium 100 mcg/ (Syringe) 5 mls @ 2 mls/min IV DAILY@0900 [facility]; Protocol Stop: 06/15/22 08:59 Last Admin: 05/16/22 10:10 Dose: 2 mls/min Albumin Human (Albumin 25%) 12.5 gm in 50 mls @ 50 mls/hr IV TODAY@0800 [facility] Stop: 05/17/22 23:59 Last Admin: 05/17/22 10:45 Dose: Not Given Albumin Human (Albumin 25%) 12.5 gm in 50 mls @ 50 mls/hr IV TODAY@0900 [facility] Stop: 05/17/22 23:59 Last Admin: 05/17/22 10:45 Dose: Not Given Phenylephrine HCl 20 mg/ (Dextrose) 502 mls @ 143.672 mls/hr IV .Q3H30M [facility]; Protocol Stop: 06/16/22 10:14 Last Titration: 05/17/22 11:25 Dose: 1 mcg/kg/min, 143.7 mls/hr Insulin Aspart (Insulin Aspart Per Unit) 0 units SC ACHS [facility]; Protocol Stop: 06/13/22 20:59 Last Admin: 05/17/22 12:44 Dose: Not Given Insulin Aspart (Insulin Aspart Per Unit) 0 units SC TODAY@0000,0400 [facility]; Protocol Stop: 05/18/22 04:01 Insulin Glargine (Lantus Per Unit Charge) 0 units SQ HS [facility]; Protocol Stop: 06/16/22 20:59 Ketorolac Tromethamine (Ketorolac Tromethamine 15 Mg/Ml Vial) 15 mg IV Q6H PRN; Protocol PRN Reason: Pain Stop: 05/21/22 18:44 Last Admin: 05/16/22 20:21 Dose: 15 mg Latanoprost (Latanoprost 0.005% Op Soln 2.5 Ml Btl) 1 drops OP QPM [facility] Stop: 06/13/22 20:59 Last Admin: 05/16/22 20:24 Dose: 1 drops Levothyroxine Sodium (Levothyroxine Sodium 137 Mcg Tablet) 137 mcg PO DAILYBB [facility] Stop: 06/14/22 06:29 Last Admin: 05/15/22 05:47 Dose: 137 mcg Metoprolol Succinate (Metoprolol Succ 25mg Ext Rel Tab) 25 mg PO QAM [facility] Stop: 06/14/22 08:59 Last Admin: 05/17/22 08:40 Dose: Not Given Midodrine (Midodrine Hcl 2.5 Mg Tab) 5 mg PO TID@0800,1200,1700 [facility] Stop: 06/14/22 07:59 Last Admin: 05/17/22 12:26 Dose: Not Given Midodrine (Midodrine Hcl 2.5 Mg Tab) 5 mg PO TODAY@0800 [facility] Stop: 05/17/22 23:59 Last Admin: 05/17/22 10:06 Dose: Not Given Miscellaneous (Carbohydrates For Hypoglycemia ) 15 - 30 gm PO UD PRN PRN Reason: Hypoglycemia Protocol Stop: 06/13/22 18:24 Miscellaneous (No Heparin In Dialysis) 1 each N/A TODAY@0800 [facility] Stop: 05/17/22 23:59 Last Admin: 05/17/22 12:17 Dose: Not Given Miscellaneous Information (Pharmacy Glycemic Mgmt Consult) 1 each N/A UD PRN PRN Reason: Consult Stop: 06/13/22 18:24 Ondansetron HCl (Ondansetron Inj 2 Mg/Ml 2 Ml Vial) 4 mg IV Q6H PRN PRN Reason: Nausea Stop: 06/13/22 18:19 Oxycodone HCl (Oxycodone Hcl Ir 5 Mg Tab (Immediate Release)) 2.5 mg PO DAILY PRN PRN Reason: Pain Stop: 05/31/22 03:56 Pantoprazole Sodium (Pantoprazole 40 Mg Tab) 40 mg PO DAILY [facility] Stop: 06/14/22 08:59 Last Admin: 05/17/22 08:40 Dose: Not Given (1) Osteomyelitis Osteomyelitis location: unspecified site Osteomyelitis type: unspecified type Qualified Code(s): M86.9 - Osteomyelitis, unspecified
[2022-05-17] MEDS: LEVOTHYROXINE SODIUM 100 MCG in SYRINGE 0 ML IV SCH (13:38)
--- NOTE | 2022-05-17 13:38 | Billing Data ---
Date of Service May 17, 2022 Coding Level of Care Code Critical Care 1st 30-74 mins Time Spent (min) 58
--- NOTE | 2022-05-17 14:39 | Electrocardiogram Report ---
Test Reason : Blood Pressure : / mmHG Vent. Rate : 161 BPM Atrial Rate : 125 BPM P-R Int : 224 ms QRS Dur : 144 ms QT Int : 302 ms P-R-T Axes : 015 -07 153 degrees QTc Int : 494 ms Probable Sinus tachycardia Left bundle branch block Abnormal ECG When compared with ECG of 14-MAY-2022 15:06, T wave inversion now evident in Lateral leads Confirmed by Woo Álvarez ([id number]) on 05/17/2022 2:38:42 PM Referred By: REFERRED SELF Confirmed By:Woo Álvarez
--- NOTE | 2022-05-17 14:48 | Electrocardiogram Report ---
Test Reason : Blood Pressure : / mmHG Vent. Rate : 118 BPM Atrial Rate : 118 BPM P-R Int : 184 ms QRS Dur : 142 ms QT Int : 352 ms P-R-T Axes : 006 -02 171 degrees QTc Int : 493 ms Sinus tachycardia Left bundle branch block Abnormal ECG When compared with ECG of 17-MAY-2022 03:15, (unconfirmed) No significant change Confirmed by Woo Álvarez ([id number]) on 05/17/2022 2:47:56 PM Referred By: REFERRED SELF Confirmed By:Woo Álvarez
[2022-05-17] MEDS ORDERED: Nursing to Pharmacy Communication SCH (15:15)
--- NOTE | 2022-05-17 16:19 | Palliative Care Consultation ---
Date of Consultation May 17, 2022 Assessment & Plan (1) Dyspnea: with acute hypoxic respiratory failure and sepsis. I think that some of her discomfort is related to the mask. I talked with her about the importance of a tight seal to help her breathing. (2) Palliative care encounter: I do not think that she is capable of understanding the full extent of her illness at this time and thus not capable of decision making. I spoke with her on the phone. He told me that "Kyung" has consistently said that she did not want life support or resuscitation. However, in the emergency room on admission, she specifically said that she would want full resuscitation. I asked him if he thought that she fully understood what she was saying and also what his thoughts were on the change in her wishes. He feels that she did understand but is uncertain about why she changed her mind. He tells me that he supports her decision for full code at this time. We had an extensive discussion about her illness and concern that her prognosis is poor. He understands this and has been considering focus on comfort. At this time he is not ready to do that. He tells me that they had a daughter that in the month of May and that Kyung's birthday is in May and this is a very difficult time for him. At this time, he would like to continue current level of care and would be agreeable to intubation, though he says multiple times that Kyung would not want to be kept alive on machines and that he would not want her to have longterm vent support. Palliative care will follow and continue to discuss goals as her condition evolves. History of Present Illness Reason for Consultation: Goals of care Requesting Physician: Dr. Saucedo Attending Physician: Eliot Saucedo MD History of Present Illness 66 yo lady with ESRD on hemodialysis with a history of CAD and diabetes. She also has a history of rectal cancer about twenty years ago at which time she had chemo and radiation therapy. She has had chronic rectal bleeding and also developed a chronic sacral wound which is infected. She was recently at [facility] for surgical debridement and started on daptomycin. She has had a diverting colostomy also. She presented to ER with severe deconditioning and weakness, unable to ambulate with poor appetite. She is being treated for sepsis and was transferred to ICU this morning for hemodynamic instability. She is currently on a phenylephrine drip and bipap. She is somnolent but arousable. She is able to answer a few questions and denies pain. She nods when asked if short of breath and tells me that the mask is tight. I asked her a few other questions but her response was consistently that the mask was tight. She did note that her breathing feels better on bipap. Allergies Allergy/AdvReac Type Severity Reaction Status Date / Time cephalexin Allergy Unknown HIVES Verified 02/15/22 11:16 fluorescein Allergy Unknown EYE Verified 02/15/22 11:16 SWELLING AND THROAT SWELLING lisinopril Allergy Unknown "CHOKING" Verified 02/15/22 11:16 meperidine Allergy Unknown NAUSEA Verified 02/15/22 11:16 Penicillins Allergy Unknown Rash Verified 05/14/22 15:16 Home Medications Medication Instructions Recorded Confirmed Type Daptomycin Iv 750 mg IV .Q Tue05/14/22 05/14/22 History atorvastatin 40 mg tablet 40 mg PO QAM 05/14/22 05/14/22 History brimonidine 0.2 %-timolol 0.5 % 1 drp OPB [facility] 05/14/22 05/14/22 History eye drops daptomycin 500 mg intravenous 500 mg IV .ONCE A DAY ON 05/14/22 05/14/22 History solution fluconazole 200 mg tablet 200 mg PO QAM 05/14/22 05/14/22 History furosemide 20 mg tablet (Lasix) 20 mg PO QAM 05/14/22 05/14/22 History gabapentin 300 mg capsule 300 mg PO 05/14/22 05/14/22 History hydroxyzine HCl 25 mg tablet 25 mg PO Q6 PRN Anxiety 05/14/22 05/14/22 History insulin aspart U-100 100 unit/mL 0 unit subcut .PM MEAL 05/14/22 05/14/22 History (3 mL) subcutaneous pen (Novolog Flexpen U-100 Insulin aspart) insulin glargine 100 unit/mL (3 40 unit subcut QA 05/14/22 05/14/22 History mL) subcutaneous pen (Basaglar KwikPen U-100 Insulin) latanoprost 0.005 % eye drops 1 drp OPB 05/14/22 05/14/22 History levothyroxine 137 mcg tablet 137 mcg PO DAILY 05/14/22 05/14/22 History loperamide 2 mg capsule 2 mg PO DIRECTED PRN Diarrhea 05/14/22 05/14/22 History midodrine 5 mg tablet 5 mg PO TID 05/14/22 05/14/22 History nitroglycerin 0.4 mg sublingual 0.4 mg sublingual DIRECTED PRN 05/14/22 05/14/22 History tablet (Nitrostat) Chest Pain ondansetron HCl 4 mg tablet 4 mg PO DIRECTED PRN Nausea 05/14/22 05/14/22 History oxycodone 5 mg/5 mL oral solution 2.5 mg PO DAILY PRN Severe Pain 05/14/22 05/14/22 History (Scale Score 7-10) pantoprazole 40 mg tablet,delayed 40 mg PO DAILY 05/14/22 05/14/22 History release ropinirole 0.25 mg tablet 0.25 mg PO HS 05/14/22 05/14/22 History sodium hypochlorite 0.25 % solution 1 applic topical DAILY 05/14/22 05/14/22 History triamcinolone acetonide 0.1 % 1 applic topical DIRECTED 05/14/22 05/14/22 H istory topical cream Patient History Medical History Accelerating angina Anemia due to stage 5 chronic kidney disease treated with erythropoietin Atherosclerosis of [place] arteries of extremities with rest pain, left leg Cancer of anorectal junction Cat bite of left forearm Cervical cancer Chronic lower GI bleeding Chronic radiation dermatitis Chronic stable angina CKD (chronic kidney disease) stage 5, GFR less than 15 ml/min CKD, patient preferred treatment modality in-center hemodialysis Closed fracture of phalanx of left fifth toe Colonic polyp Coronary artery disease 50% lad stenosis, an 80% obtuse marginal stenosis, and a 50% PDA stenosis. It should be noted her PDA arose from her left circumflex. Demand ischemia of myocardium DM type 2 with diabetic peripheral neuropathy Encounter for colorectal cancer screening 02/10/07 ESRD (end stage renal disease) on dialysis Heart failure with preserved ejection fraction, borderline, class II History of treatment of incomplete miscarriage x3 History of hyperbaric oxygen therapy 07/2011, 11/2011, 60 treatments. History of rectal or anal cancer HTN (hypertension) Hx of barium enema Hx of mammogram Hyperlipidemia Hyperparathyroidism Hyponatremia Hypothyroidism Injection of surface of both eyes Injection of eye drug, Lucentis 0.3mg by Dr. Taveras Iron deficiency anemia due to chronic blood loss Major depressive disorder Melanoma of back Myocardial infarction Non-compliance Other pancytopenia PAD (peripheral artery disease) Proliferative diabetic retinopathy of both eyes without macular edema associated with diabetes mellitus due to underlying condition Radiation proctitis Retinal edema Retinal lesion S/P arteriogram of extremity Thrombocytopenia Type 2 diabetes mellitus Uncontrolled type 2 diabetes mellitus with retinopathy of left eye, with long- term current use of insulin Uterine cancer Vitreous hemorrhage of right eye Surgical History H/O cataract removal with insertion of prosthetic lens H/O colonoscopy adhesions and radiation colitis precluded advancing scope through the sigmoid. Exam discontinued. H/O eye surgery partial removal of eye fluid, bilateral H/O laparoscopy appendectomy History of breast surgery left breast, 1982 History of insertion of tunneled central venous catheter (CVC) with port History of revascularization procedure of lower extremity Hx of angioplasty Hx of biopsy benign right breast biopsy about 20 years ago. Hx of colonoscopy 08/31/2017, multiple colonic angioectasias from prior radiation/narrowed and scarred left colon from multiple prior surgeries/colonoscopy flexible proximal diagnositic performed by Chandler Gill. S/P laser trabeculoplasty of eye S/P tonsillectomy Status post total abdominal hysterectomy Social History Smoking Status: Never smoker Hx Alcohol Use: No Hx Substance Use: No Preferred Language: Irish Communication Ability: Effective Beliefs That Will Affect Care: None marital status: Current Living Situation: Spouse current occupational status: employed current occupation: has own salon How many Children do You have: 1 How many Children do You have Comment: special needs child Feels Safe at Home: Yes Safety Concerns: Feels Safe At This Time caffeine: No Assistive Devices: None Review of Systems Review of Systems: ESAS Pain 0/3 Dyspnea 2/3 Fatigue 3/3 Nausea 0/3 Anxiety 1/3 Drowsiness 1/3 PPS 30% Physical Exam Constitutional: no acute distress ENMT: exam limited with bipap Respiratory: normal respiratory effort; no labored breathing Cardiovascular: Extremities: + edema Gastrointestinal (Abdomen): colostomy, nontender Skin: vascular skin changes Genitourinary: anuric Results & Data ([facility]) Vital Signs (Past 12 Hours) Vital Signs Temp Pulse Pulse Pulse Pulse Resp BP 05/17/22 14:43 95 H 26 H 05/17/22 14:18 92 H 16 05/17/22 14:15 91 H 15 05/17/22 14:07 105/53 L 05/17/22 14:07 93 H 15 05/17/22 14:03 94 H 14 05/17/22 14:00 94 H 14 05/17/22 13:48 92 H 9 L 05/17/22 13:48 101/57 L 05/17/22 13:45 93 H 12 05/17/22 13:44 93 H 17 05/17/22 13:44 95/57 L 05/17/22 13:33 92 H 15 05/17/22 14:27 97.7 F 05/17/22 13:48 92 H 101/57 L 05/17/22 13:18 91 H 74/54 L 05/17/22 13:33 92 H 80/57 L 05/17/22 13:30 94 H 16 05/17/22 13:20 74/59 L 05/17/22 13:20 92 H 13 05/17/22 13:19 90 10 L 05/17/22 13:15 92 H 18 05/17/22 13:03 94 H 21 05/17/22 13:00 95 H 13 05/17/22 12:51 98 H 15 05/17/22 12:51 103/51 L 05/17/22 12:48 68/55 L 05/17/22 12:48 93 H 17 05/17/22 12:45 91 H 9 L 05/17/22 12:33 92/57 L 05/17/22 12:33 92 H 14 05/17/22 12:30 93 H 12 05/17/22 12:21 92/60 L 05/17/22 12:21 90 9 L 05/17/22 12:19 100/58 L 05/17/22 12:19 91 H 8 L 05/17/22 12:15 92 H 9 L 05/17/22 12:13 92 H 10 L 05/17/22 13:03 94 H 100/60 05/17/22 12:47 98 H 103/51 L 05/17/22 12:33 93 H 92/57 L 05/17/22 12:21 89 92/60 L 05/17/22 12:09 92 H 91/58 L 05/17/22 11:55 93 H 97/64 L 05/17/22 12:09 92 H 16 05/17/22 12:09 91/58 L 05/17/22 12:02 90 12 05/17/22 12:00 87 10 L 05/17/22 12:00 71/58 L 05/17/22 11:59 89 8 L 05/17/22 11:59 97/64 L 05/17/22 11:55 89 15 05/17/22 11:45 93 H 21 05/17/22 11:44 102/37 L 05/17/22 11:44 93 H 10 L 05/17/22 11:42 93 H 12 05/17/22 11:30 96 H 10 L 05/17/22 11:25 99 H 16 05/17/22 11:17 69/52 L 05/17/22 11:17 93 H 17 05/17/22 11:16 62/46 L 05/17/22 11:16 94 H 12 05/17/22 11:15 94 H 12 05/17/22 11:09 74/62 L 05/17/22 11:09 96 H 19 05/17/22 11:00 93 H 17 05/17/22 11:00 89/64 L 05/17/22 11:40 93 H 64/43 L 05/17/22 11:25 99 H 96/74 L 05/17/22 11:00 93 H 89/64 L 05/17/22 11:15 94 H 62/46 L 05/17/22 10:46 96 H 80/63 L 05/17/22 10:32 96 H 115/47 L 05/17/22 10:09 97.5 F L 100 H 05/17/22 10:54 93/54 L 05/17/22 10:54 94 H 18 05/17/22 10:48 80/63 L 05/17/22 10:48 95 H 17 05/17/22 10:46 97 H 24 05/17/22 10:45 98 H 29 H 05/17/22 10:39 112/60 05/17/22 10:39 96 H 17 05/17/22 10:33 97 H 13 05/17/22 10:33 115/47 L 05/17/22 10:30 97 H 16 05/17/22 10:24 99 H 21 05/17/22 10:15 100 H 23 05/17/22 10:09 95/49 L 05/17/22 10:09 103 H 16 05/17/22 10:00 100 H 19 05/17/22 09:54 94/37 L 05/17/22 09:54 101 H 23 05/17/22 09:45 101 H 21 05/17/22 09:40 101 H 18 05/17/22 09:40 84/50 L 05/17/22 09:30 105 H 19 05/17/22 09:24 87/57 L 05/17/22 09:24 106 H 17 05/17/22 09:15 104 H 17 05/17/22 09:15 78/55 L 05/17/22 09:10 106 H 21 05/17/22 09:10 77/66 L 05/17/22 09:00 107 H 0 L 05/17/22 10:00 05/17/22 10:10 102 H 23 05/17/22 08:30 05/17/22 08:01 103 H 05/17/22 08:00 26 H 05/17/22 08:28 05/17/22 08:27 05/17/22 08:18 118 H 05/17/22 07:23 98.1 F 120 H 19 05/17/22 05:16 97.5 F L 100 H 24 05/17/22 04:00 18 BP BP Pulse Ox O2 Del Method O2 Flow Rate FiO2 05/17/22 14:43 96 40 05/17/22 14:18 100 05/17/22 14:15 99 05/17/22 14:07 05/17/22 14:07 98 05/17/22 14:03 98 05/17/22 14:00 99 05/17/22 13:48 98 05/17/22 13:48 05/17/22 13:45 99 05/17/22 13:44 98 05/17/22 13:44 05/17/22 13:33 98 05/17/22 14:27 05/17/22 13:48 05/17/22 13:18 05/17/22 13:33 05/17/22 13:30 98 05/17/22 13:20 05/17/22 13:20 99 05/17/22 13:19 98 05/17/22 13:15 98 05/17/22 13:03 97 05/17/22 13:00 97 05/17/22 12:51 94 05/17/22 12:51 05/17/22 12:48 05/17/22 12:48 97 05/17/22 12:45 97 05/17/22 12:33 05/17/22 12:33 97 05/17/22 12:30 97 05/17/22 12:21 05/17/22 12:21 97 05/17/22 12:19 05/17/22 12:19 98 05/17/22 12:15 98 05/17/22 12:13 98 05/17/22 13:03 05/17/22 12:47 05/17/22 12:33 05/17/22 12:21 05/17/22 12:09 05/17/22 11:55 05/17/22 12:09 98 05/17/22 12:09 05/17/22 12:02 97 05/17/22 12:00 97 05/17/22 12:00 05/17/22 11:59 98 05/17/22 11:59 05/17/22 11:55 95 05/17/22 11:45 97 05/17/22 11:44 05/17/22 11:44 97 05/17/22 11:42 97 05/17/22 11:30 95 05/17/22 11:25 96 05/17/22 11:17 05/17/22 11:17 96 05/17/22 11:16 05/17/22 11:16 98 05/17/22 11:15 98 05/17/22 11:09 05/17/22 11:09 98 05/17/22 11:00 98 05/17/22 11:00 05/17/22 11:40 05/17/22 11:25 05/17/22 11:00 05/17/22 11:15 05/17/22 10:46 05/17/22 10:32 05/17/22 10:09 05/17/22 10:54 05/17/22 10:54 98 05/17/22 10:48 05/17/22 10:48 99 05/17/22 10:46 99 05/17/22 10:45 99 05/17/22 10:39 05/17/22 10:39 99 05/17/22 10:33 99 05/17/22 10:33 05/17/22 10:30 98 05/17/22 10:24 97 05/17/22 10:15 97 05/17/22 10:09 05/17/22 10:09 97 05/17/22 10:00 96 05/17/22 09:54 05/17/22 09:54 96 05/17/22 09:45 96 05/17/22 09:40 96 05/17/22 09:40 05/17/22 09:30 97 05/17/22 09:24 05/17/22 09:24 98 05/17/22 09:15 93 05/17/22 09:15 05/17/22 09:10 93 05/17/22 09:10 05/17/22 09:00 05/17/22 10:00 BiPAP 40 05/17/22 10:10 97 40 05/17/22 08:30 Nasal Cannula 4 05/17/22 08:01 05/17/22 08:00 92 Nasal Cannula 4 05/17/22 08:28 106/69 05/17/22 08:27 80/54 L 05/17/22 08:18 97/66 L 05/17/22 07:23 110/69 95 Nasal Cannula 3.0 05/17/22 05:16 89/53 L 96 Nasal Cannula 4 05/17/22 04:00 94 Nasal Cannula 2 PG Care Time/CCT Total # of Minutes Spent Total Time Spent: 90 Total Time Spent with Patient: Total time spent is greater than 50% in coordination of care (as documented) at patient's floor/unit and/or counseling patient: prognosis, goals of care, code status, family education and support. Coding Level of Care Code 46146 Initial Inpt Care Lvl 3 Diagnoses Dyspnea R06.00 Palliative care encounter Z51.5
[2022-05-17] MEDS ORDERED: LANTUS PER UNIT CHARGE SQ SCH (21:00)
[2022-05-17] MEDS: LATANOPROST 0.005% OP SOLN 2.5 ML BTL OP SCH (21:09)
[2022-05-17] MEDS: LANTUS PER UNIT CHARGE SQ SCH (21:21)
[2022-05-18] MEDS: INSULIN ASPART PER UNIT SC SCH ×6 (00:09→21:14)
[2022-05-18] MEDS: PHENYLEPHRINE HCL 20 MG in DEXTROSE 5% 500 ML IV SCH ×5 (03:53→17:55)
[2022-05-18] MEDS: HYDROCORTISONE SOD 50 MG in SYRINGE 0 ML IV SCH ×3 (03:54→16:46)
[2022-05-18 05:30] LABS: Hematocrit (blood only) 26.2 % (34.1-44.9); Hemoglobin 8.1 g/dl (12.0-16.0); Mean Corpuscular Hemoglobin 30.1 pg (25.0-34.0); Mean Corpuscular Hgb Conc 30.9 g/dL (32.0-36.0); Mean Corpuscular Volume 97.4 fL (80.0-100.0); Mean Platelet Volume 10.7 fL (9.4-12.3); Nucleated RBC # (auto) 0.17 K/uL (0-0); Nucleated RBC % (auto) 1.1 %; Platelet Count 140 K/uL (130-400); RDW Coefficient of Variation 22.4 % (11.5-14.5); RDW Standard Deviation 77.6 fL (36.4-46.3); Red Blood Count 2.69 M/uL (3.93-5.22); White Blood Count 15.71 K/ul (4.8-10.8)
[2022-05-18 05:58] LABS: BUN Creatinine Ratio 8.4 (10-20); Bilirubin Direct 0.4 mg/dl (0-0.2); Calcium 7.7 mg/dl (8.5-10.1); Creatinine Clr Calc Pharmacy 15.7 ml/min; Est GFR (African American) 13.4 ml/min; Est GFR (Non-African American) 11.6 ml/min; Magnesium 1.8 mg/dl (1.7-2.4); Phosphorus 4.8 mg/dl (2.5-4.9); Potassium 4.1 mmol/L (3.5-5.1); Total Protein 5.5 gm/dl (6.0-8.3)
[2022-05-18 06:14] LABS: Anisocytosis Present; Basophils # (auto) 0.02 K/uL (0-0.2); Basophils % (auto) 0.1 %; Immature Granulocytes # (auto) 0.08 K/uL (0.00-0.02); Immature Granulocytes % (auto) 0.5 %; Lymphocytes # (auto) 0.81 K/uL (1.2-3.4); Lymphocytes % (auto) 5.2 %; Macrocytosis Present; Monocytes % (auto) 2.5 %; Neutrophils % (auto) 91.7 %; Polychromasia 1+; Target Cells 1+
--- NOTE | 2022-05-18 06:49 | Surgery Progress Note ---
Date of Service May 18, 2022 Assessment & Plan (1) Ulcer of sacral region, stage 4: Plan: At this point the patient still is on low dose Levophed she had dialysis done yesterday the plan is to dialyze her again today discussed the situation with cerner analyst at this time we will hold off any debridement of the ulceration therefore surgery will be canceled for today Admission and Anticipated Discharge Date Admission Date: May 14, 2022 Results & Data ([facility]) Vital Signs (Past 12 Hours) Vital Signs Temp Pulse Resp BP Pulse Ox O2 Del Method O2 Flow Rate 05/18/22 06:30 95 H 10 L 98 05/18/22 06:17 90 15 98 05/18/22 06:17 111/59 L 05/18/22 06:00 84 11 L 98 05/18/22 05:51 88/49 L 05/18/22 05:51 72 7 L 100 05/18/22 05:47 70 5 L 99 05/18/22 05:47 79/44 L 05/18/22 05:30 71 6 L 99 05/18/22 05:17 71 6 L 99 05/18/22 05:17 108/39 L 05/18/22 05:00 72 6 L 99 05/18/22 04:47 72 8 L 99 05/18/22 04:47 107/48 L 05/18/22 04:30 74 7 L 100 05/18/22 04:17 78 8 L 99 05/18/22 04:17 125/47 L 05/18/22 04:00 85 10 L 98 05/18/22 03:47 84 11 L 99 05/18/22 03:47 101/52 L 05/18/22 03:30 71 6 L 99 05/18/22 03:17 72 6 L 99 05/18/22 03:17 98/44 L 05/18/22 03:00 77 7 L 99 05/18/22 02:46 100/48 L 05/18/22 02:46 79 9 L 98 05/18/22 02:41 88/55 L 05/18/22 02:41 75 9 L 99 05/18/22 02:30 72 6 L 99 05/18/22 02:17 93/42 L 05/18/22 02:17 73 7 L 99 05/18/22 02:00 75 8 L 99 05/18/22 01:47 109/49 L 05/18/22 01:47 81 6 L 99 05/18/22 01:30 100 H 22 98 05/18/22 01:17 90 12 98 05/18/22 01:17 100/53 L 05/18/22 04:00 10 L 99 Nasal Cannula 4 05/18/22 00:00 12 98 Nasal Cannula 05/17/22 20:00 36.4 C L 05/18/22 01:00 94 H 16 98 05/18/22 00:47 97 H 12 98 05/18/22 00:47 130/52 L 05/18/22 00:30 95 H 18 99 05/18/22 00:17 82 7 L 98 05/18/22 00:17 114/43 L 05/18/22 00:00 83 9 L 99 05/17/22 23:47 114/49 L 05/17/22 23:47 76 7 L 100 05/17/22 23:30 79 6 L 100 05/17/22 23:17 88 20 99 05/17/22 23:17 125/50 L 05/17/22 23:00 88 9 L 97 05/17/22 22:47 127/63 05/17/22 22:47 87 9 L 99 05/17/22 22:30 73 15 100 05/17/22 22:16 84/48 L 05/17/22 22:16 74 7 L 100 05/17/22 22:00 75 6 L 100 05/17/22 21:47 76 7 L 100 05/17/22 21:47 91/48 L 05/18/22 00:00 36.5 C 05/17/22 23:09 87 05/17/22 21:30 87 12 99 05/17/22 21:00 87 10 L 100 05/17/22 20:47 86 10 L 100 05/17/22 20:47 124/59 L 05/17/22 20:30 89 10 L 100 05/17/22 20:20 97/54 L 05/17/22 20:20 87 7 L 100 05/17/22 20:00 97 H 13 100 05/17/22 19:50 95/51 L 05/17/22 19:50 98 H 17 99 4 07/25/22 19:38 82/44 L 05/17/22 19:38 99 H 16 96 05/17/22 19:30 103 H 15 98 Nasal Cannula 3 05/17/22 19:12 99 H 19 100 05/17/22 19:12 127/55 L 05/17/22 19:00 102 H 22 96 05/17/22 20:00 16 99 Nasal Cannula 4 05/17/22 20:00 Nasal Cannula 4 PG Care Time/CCT Total # of Minutes Spent Total Time Spent with Patient: Total time spent is greater than 50% in coordination of care (as documented) at patient's floor/unit and/or counseling patient: Coding Level of Care Code 85878 Subseq Hosp Care Lvl 2 Diagnoses Ulcer of sacral region, stage 4 L98.429
[2022-05-18] MEDS ORDERED: MAG SULFATE 50% 1GM/2ML VIAL IV STA (07:22)
[2022-05-18] MEDS ORDERED: MAGNESIUM SULFATE / D5W 1 GM/100 ML BAG IV ONE (07:30)
[2022-05-18] MEDS: MIDODRINE HCL 2.5 MG TAB PO SCH ×3 (07:59→16:46)
[2022-05-18] MEDS: HEPARIN SOD 5,000 UNIT/0.5 ML VIAL SQ SCH ×2 (08:00→21:07)
[2022-05-18] MEDS: ATORVASTATIN 40 MG TAB PO SCH (08:00)
[2022-05-18] MEDS ORDERED: INSULIN ASPART PER UNIT SC SCH (08:00)
[2022-05-18] MEDS: GABAPENTIN 100 MG CAP PO SCH (08:00)
[2022-05-18] MEDS: PANTOprazole 40 MG TAB PO SCH (08:01)
[2022-05-18] MEDS: COLLAGENASE OINT 30 GM TUBE EXT SCH (08:02)
[2022-05-18] MEDS: LEVOTHYROXINE SODIUM 100 MCG in SYRINGE 0 ML IV SCH (08:03)
[2022-05-18] MEDS ORDERED: SODIUM CHLORIDE 0.9% 1000ML 1,000 ML IV PRN (08:20)
[2022-05-18] MEDS ORDERED: EPOETIN ALFA 20,000 UNITS/ML VIAL IV ONE (08:20)
--- NOTE | 2022-05-18 09:00 | XRay Report ---
XR chest 1V portable CLINICAL HISTORY: f/u COMPARISON STUDY: Chest radiograph May 14, 2022. FINDINGS: Dual lumen right internal jugular [id number] remains in place. There is no pneumothorax. Small to moderate bilateral pleural effusions are again noted with bibasilar opacities. Pulmonary ed marion has slightly improved. Cardiomediastinal silhouette is stable. IMPRESSION: 1. Persistent, but slightly improved, pulmonary edema. 2. Small to moderate bilateral pleural effusions with associated bibasilar opacities. ACT 112: Negative or not required by law. Electronically signed by: Chuy Ronquillo M.D. 05/18/2022 8:59 AM
--- NOTE | 2022-05-18 09:24 | Critical Care Progress Note ---
Date of Service May 18, 2022 Assessment & Plan (1) Sepsis: Plan: Reason Critically Ill: 66-year-old female here with a PMHx significant for ESRD on thrice weekly dialysis, CAD, PAD, and rectal cancer (f/p chemoradiation approximately 20 years ago), and DM2, who presented with sepsis secondary to sacral ulcer/osteomyelitis (awaiting surgical debridement) and was admitted for vasopressor support. Neuro - [facility] ICU: Negative Sedation: None Analgesia: IV Toradol as needed, IV Dilaudid as needed. Gabapentin 100 mg every morning Cardiac -history of CAD, PAD * CAD: Patient has past medical history of KS with partial LAD obstruction treated medically (due to increased bleeding risk). Continue atorvastatin 40 mg qAM. * HFpEF: Holding Metoprolol. Continue midodrine. --Elevated troponin Likely combination of type II KS as well as ongoing insults given the echo findings Not a candidate for heparin drip. Low blood pressure cannot give beta-blockers or DELPHINE inhibitor's Cardiology on board 2D echo 05/17/2022: EF 35%, grade 2 diastolic dysfunction, PASP 33 mmHg, moderate global hypokinesis of LV -- Shock Combination of sepsis plus cardiac Likely from sacral decubitus ulcer with osteomyelitis Patient also has new left bundle branch block with decreased ejection fraction Continue with phenylephrine for the time being. Respiratory - * Acute hypoxic respiratory failure secondary to bilateral pleural effusion with bilateral lower lobe atelectasis Likely from volume overload from end-stage renal disease Continue with O2 supplementation and BiPAP as needed GI - Diet advanced given deferment of sacral debridement by surgery. Carb consistent RENAL/LYTES - * Hyponatremia .Electrolyte derangement likely secondary to ESRD, ongoing sepsis. Expect improvement post-dialysis * Dialysis again today for further diuresis. - [No concerns at this time.] ENDO - Currently on hydrocortisone every 6 hours as endocrinology were thinking about myxedema coma. I highly doubt this is the case as TSH was only 22. We will try to gradually wean it off HEME - [Stable H&H.] * Chronic anemia secondary to ESRD on dialysis. Currently on erythropoietin. ID - * Osteomyelitis: Sacral decubitus ulcer stage IV. Continue Daptomycin. * Awaiting blood culture results. LINES/IV ACCESS - PIVs intact, left-sided permacath DVT PROPHYLAXIS - IPC Thank you for allowing us to be part of this patient's care. Please refer to Dr. Quintero's documentation for any further recommendations. (2) PAD (peripheral artery disease): (3) Heart failure with preserved ejection fraction, borderline, class II: (4) Coronary artery disease: (5) Ulcer of sacral region, stage 4: (6) Osteomyelitis: (7) End-stage renal disease (ESRD): Admission and Anticipated Discharge Date Admission Date: May 14, 2022 Supervising Physician Co-Signing Physician Notes Dr. Brock was the resident-physician during care of patient. I separately evaluated patient for man portions of the history and the exam. I was present during the critical portion of medical decision making, and I discussed the case with the resident. I generally agree with the findings and plan except for any additions/exceptions noted. Patient seen and examined at bedside. No acute distress, no adverse events overnight Patient was more alert today. Answering all the questions appropriately She was on 0.5 of phenylephrine at the time of examination. I was able to go down to 2.3 and gradually 2.2. She was still maintaining her MAP greater than 65. She was briefly off vasopressor support. Denied any headache, no nausea or vomiting. No abdominal pain. Constitutional: No acute distress HEENT: EOMI, PERRLA Respiratory system: Decreased air entry bilaterally, no wheeze, no rhonchi, positive crackles bilaterally CVS: S1-S2 positive, no murmurs or gallops, distant heart sounds Abdomen: Soft, nontender, nondistended, positive bowel sounds x4, positive colostomy Extremities: +2 pulses bilaterally radialis/ dorsalis pedis, no cyanosis, +2 edema bilateral lower extremity Neuro: Awake alert oriented x3 Psych: Normal mood and affect G/U: No Santiago --Prophylaxis VTE: IPC GI: Pantoprazole Lines: Peripheral, right-sided permacath Diet: N.p.o. --> will start clear liquid diet and advance as tolerated to cardiorenal Plan: In/out: Approximately -1 L as 3 L was removed from dialysis Patient looks mentally improved compared to yesterday. Continue with phenylephrine to keep MAP greater than 65 Lactic acidosis also improving. Hyponatremia and hypochloremia is likely hypervolemia induced from volume overload. Continue with midodrine. We will consider increasing to 10 mg 3 times daily. Go down on hydrocortisone to 50 mg every 8 hours. Tomorrow we will go down to every 12. I have personally spent 37 minutes of critical care time in the direct management of this patient. This is a life/limb threatening event. This includes time spent evaluating patient, direct bedside care, chart review, placing orders, interpretation of diagnostic studies, discussion with consultants, patient, and/or family members regarding treatment decisions, as well as other required patient management activities. This time is exclusive of all separately billable procedures, and teaching time and separate from and in addition to any other critical care service time. Subjective Pt. is awake in bed this morning. She is alert and oriented x3 this morning. She denies headache, fever, chills, chest pain, or abdominal pain. She reports some shortness of breath. Otherwise, she feels much better vs. yesterday. Review of Systems Review of Systems: All systems reviewed & are unremarkable except as noted in HPI & below Physical Exam Physical Exam: General: Well-appearing, alert, interactive, and in no acute distress. HEENT: Normocephalic, atraumatic. EOM intact. Good conjugate gaze. Nares patent. Moist mucosal membranes. Neck: Supple. No lymphadenopathy. Normal ROM. CV: Regular rate and rhythm. Normal S1 and S2. No murmurs gallops or rubs. Respiratory: Bilateral crackles heard on auscultation. No rhonchi or wheezes. Abdomen: Soft, nondistended abdomen. No bruits heard on auscultation. No tenderness to deep palpation. Colostomy bag, without surrounding erythema or irritation. Extremities: 2+ dp equal bilaterally. Bilateral pedal edema Neuro: Alert and oriented x3. Results & Data Results & Data ([facility]) Vital Signs (Past 12 Hours) Vital Signs Temp Pulse Resp BP Pulse Ox O2 Del Method O2 Flow Rate 05/18/22 08:47 91/42 L 05/18/22 08:47 95 H 10 L 97 05/18/22 08:30 95 H 18 96 05/18/22 08:18 98 H 14 97 05/18/22 08:18 102/57 L 05/18/22 08:14 96 H 15 98 05/18/22 08:14 106/61 05/18/22 08:02 94 H 18 98 05/18/22 08:02 116/58 L 05/18/22 08:00 91 H 13 98 05/18/22 07:59 91 H 15 98 05/18/22 07:59 121/53 L 05/18/22 07:46 117/53 L 05/18/22 07:46 85 9 L 99 05/18/22 07:30 78 6 L 100 05/18/22 07:16 94/48 L 05/18/22 07:16 81 8 L 98 05/18/22 07:00 87 9 L 97 05/18/22 08:00 36.5 C 05/18/22 08:00 16 97 Nasal Cannula 2 05/18/22 08:00 Nasal Cannula 4 05/18/22 06:47 89 11 L 97 05/18/22 06:47 94/50 L 05/18/22 06:40 87 10 L 97 05/18/22 06:30 95 H 10 L 98 05/18/22 06:17 90 15 98 05/18/22 06:17 111/59 L 05/18/22 06:00 84 11 L 98 05/18/22 05:51 88/49 L 05/18/22 05:51 72 7 L 100 05/18/22 05:47 70 5 L 99 05/18/22 05:47 79/44 L 05/18/22 05:30 71 6 L 99 05/18/22 05:17 71 6 L 99 05/18/22 05:17 108/39 L 05/18/22 05:00 72 6 L 99 05/18/22 04:47 72 8 L 99 05/18/22 04:47 107/48 L 05/18/22 04:30 74 7 L 100 05/18/22 04:17 78 8 L 99 05/18/22 04:17 125/47 L 05/18/22 04:00 85 10 L 98 05/18/22 03:47 84 11 L 99 05/18/22 03:47 101/52 L 05/18/22 03:30 71 6 L 99 05/18/22 03:17 72 6 L 99 05/18/22 03:17 98/44 L 05/18/22 03:00 77 7 L 99 05/18/22 02:46 100/48 L 05/18/22 02:46 79 9 L 98 05/18/22 02:41 88/55 L 05/18/22 02:41 75 9 L 99 05/18/22 02:30 72 6 L 99 05/18/22 02:17 93/42 L 05/18/22 02:17 73 7 L 99 05/18/22 02:00 75 8 L 99 05/18/22 01:47 109/49 L 05/18/22 01:47 81 6 L 99 05/18/22 01:30 100 H 22 98 05/18/22 01:17 90 12 98 05/18/22 01:17 100/53 L 05/18/22 04:00 10 L 99 Nasal Cannula 4 05/18/22 00:00 12 98 Nasal Cannula 05/18/22 01:00 94 H 16 98 05/18/22 00:47 97 H 12 98 05/18/22 00:47 130/52 L 05/18/22 00:30 95 H 18 99 05/18/22 00:17 82 7 L 98 05/18/22 00:17 114/43 L 05/18/22 00:00 83 9 L 99 05/17/22 23:47 114/49 L 05/17/22 23:47 76 7 L 100 05/17/22 23:30 79 6 L 100 05/17/22 23:17 88 20 99 05/17/22 23:17 125/50 L 05/17/22 23:00 88 9 L 97 05/17/22 22:47 127/63 05/17/22 22:47 87 9 L 99 05/17/22 22:30 73 15 100 05/17/22 22:16 84/48 L 05/17/22 22:16 74 7 L 100 05/17/22 22:00 75 6 L 100 05/17/22 21:47 76 7 L 100 05/17/22 21:47 91/48 L 05/18/22 00:00 36.5 C 05/17/22 23:09 87 05/17/22 21:30 87 12 99 Resident Activity Tracking Resident Involvement: Resident Care Provided Care Provided: Adult Hospital Medicine (1) Osteomyelitis Osteomyelitis location: unspecified site Osteomyelitis type: unspecified type Qualified Code(s): M86.9 - Osteomyelitis, unspecified
--- NOTE | 2022-05-18 10:21 | Billing Data ---
Date of Service May 18, 2022 Coding Level of Care Code Critical Care 1st 30-74 mins Time Spent (min) 37
--- NOTE | 2022-05-18 10:24 | Dialysis Progress Note ---
Date of Service May 18, 2022 Assessment & Plan (1) End-stage renal disease (ESRD): Plan: ESRD MWF at [facility] via dialysis catheter Last dialysed on 05/17 w/ 3L UF (on pressor) K normalized; ongoing marked volume overload new LBBB on ECG, tachypneic 05/17 > moved to ICU and w/ pressor support - cardiology following; not a cardiac cath candidate ->>>>recommend daily dialysis today and likely next several days w/ pressor support to optimize volume status; follow daily for treatment tolerance/need ->>>dialysis catheter running reversed today; catheter malfunction may require exchange if function worsens -max dose epo w/ tx >>>will ensure pharmacy dosing daptomycin post HD (2) Osteomyelitis: Plan: - awaiting surgical debridement > surgery evaluating daily - Continue on the MWF or/ and post HD Daptomycin Admission and Anticipated Discharge Date Admission Date: May 14, 2022 Subjective seen on HD; much improved after 3L UF yesterday; on 2-4L now 02nc; humphrey was off briefly but back on now. pt hungry, thirsty; breathing better; pain controlled Review of Systems Review of Systems: All systems reviewed & are unremarkable except as noted in Subjective Physical Exam Constitutional: well developed, well nourished, + obese, + frail appearing and cooperative; no acute distress Eyes: EOM intact bilaterally ENMT: Ears: no external ear abnormality Nose: no external nose abnormality Mouth: + dry oral mucous membranes Neck: no nuchal rigidity Respiratory: normal respiratory effort; does not use accessory muscles and not tachypneic Auscultation: + diminished lung sounds Cardiovascular: Rate/Rhythm: regular rate and regular rhythm Extremities: + edema (3+ BLE) Gastrointestinal (Abdomen): Inspection/Auscultation: normal bowel sounds P ercussion/Palpation: abdomen soft; abdomen nontender Musculoskeletal: Extremities: + abnormal strength Skin: no rashes, warm and dry Neurologic: rider, fluent/appropriate speech, no tremor Psychiatric: Orientation: oriented to person, oriented to place and cooperative Affect: euthymic affect Results & Data ([facility]) Vital Signs (Past 12 Hours) Vital Signs Temp Pulse Pulse Resp BP Pulse Ox O2 Del Method 05/18/22 09:46 88 97/59 L 05/18/22 10:00 79 98/45 L 05/18/22 09:26 91 H 103/60 05/18/22 09:16 36.5 C 92 H 05/18/22 08:47 91/42 L 05/18/22 08:47 95 H 10 L 97 05/18/22 08:30 95 H 18 96 05/18/22 08:18 98 H 14 97 05/18/22 08:18 102/57 L 05/18/22 08:14 96 H 15 98 05/18/22 08:14 106/61 05/18/22 08:02 94 H 18 98 05/18/22 08:02 116/58 L 05/18/22 08:00 91 H 13 98 05/18/22 07:59 91 H 15 98 05/18/22 07:59 121/53 L 05/18/22 07:46 117/53 L 05/18/22 07:46 85 9 L 99 05/18/22 07:30 78 6 L 100 05/18/22 07:16 94/48 L 05/18/22 07:16 81 8 L 98 05/18/22 07:00 87 9 L 97 05/18/22 08:00 36.5 C 05/18/22 08:00 16 97 Nasal Cannula 05/18/22 08:00 Nasal Cannula 05/18/22 06:47 89 11 L 97 05/18/22 06:47 94/50 L 05/18/22 06:40 87 10 L 97 05/18/22 06:30 95 H 10 L 98 05/18/22 06:17 90 15 98 05/18/22 06:17 111/59 L 05/18/22 06:00 84 11 L 98 05/18/22 05:51 88/49 L 05/18/22 05:51 72 7 L 100 05/18/22 05:47 70 5 L 99 05/18/22 05:47 79/44 L 05/18/22 05:30 71 6 L 99 05/18/22 05:17 71 6 L 99 05/18/22 05:17 108/39 L 05/18/22 05:00 72 6 L 99 05/18/22 04:47 72 8 L 99 05/18/22 04:47 107/48 L 05/18/22 04:30 74 7 L 100 05/18/22 04:17 78 8 L 99 05/18/22 04:17 125/47 L 05/18/22 04:00 85 10 L 98 05/18/22 03:47 84 11 L 99 05/18/22 03:47 101/52 L 05/18/22 03:30 71 6 L 99 05/18/22 03:17 72 6 L 99 05/18/22 03:17 98/44 L 05/18/22 03:00 77 7 L 99 05/18/22 02:46 100/48 L 05/18/22 02:46 79 9 L 98 05/18/22 02:41 88/55 L 05/18/22 02:41 75 9 L 99 05/18/22 02:30 72 6 L 99 05/18/22 02:17 93/42 L 05/18/22 02:17 73 7 L 99 05/18/22 02:00 75 8 L 99 05/18/22 01:47 109/49 L 05/18/22 01:47 81 6 L 99 05/18/22 01:30 100 H 22 98 05/18/22 01:17 90 12 98 05/18/22 01:17 100/53 L 05/18/22 04:00 10 L 99 Nasal Cannula 05/18/22 00:00 12 98 Nasal Cannula 05/18/22 01:00 94 H 16 98 05/18/22 00:47 97 H 12 98 05/18/22 00:47 130/52 L 05/18/22 00:30 95 H 18 99 05/18/22 00:17 82 7 L 98 05/18/22 00:17 114/43 L 05/18/22 00:00 83 9 L 99 05/17/22 23:47 114/49 L 05/17/22 23:47 76 7 L 100 05/17/22 23:30 79 6 L 100 05/17/22 23:17 88 20 99 05/17/22 23:17 125/50 L 05/17/22 23:00 88 9 L 97 05/17/22 22:47 127/63 05/17/22 22:47 87 9 L 99 05/17/22 22:30 73 15 100 05/17/22 22:16 84/48 L 05/17/22 22:16 74 7 L 100 05/18/22 00:00 36.5 C 05/17/22 23:09 87 O2 Flow Rate 05/18/22 09:46 05/18/22 10:00 05/18/22 09:26 05/18/22 09:16 05/18/22 08:47 05/18/22 08:47 05/18/22 08:30 05/18/22 08:18 05/18/22 08:18 05/18/22 08:14 05/18/22 08:14 05/18/22 08:02 05/18/22 08:02 05/18/22 08:00 05/18/22 07:59 05/18/22 07:59 05/18/22 07:46 05/18/22 07:46 05/18/22 07:30 05/18/22 07:16 05/18/22 07:16 05/18/22 07:00 05/18/22 08:00 05/18/22 08:00 2 05/18/22 08:00 4 05/18/22 06:47 05/18/22 06:47 05/18/22 06:40 05/18/22 06:30 05/18/22 06:17 05/18/22 06:17 05/18/22 06:00 05/18/22 05:51 05/18/22 05:51 05/18/22 05:47 05/18/22 05:47 05/18/22 05:30 05/18/22 05:17 05/18/22 05:17 05/18/22 05:00 05/18/22 04:47 05/18/22 04:47 05/18/22 04:30 05/18/22 04:17 05/18/22 04:17 05/18/22 04:00 05/18/22 03:47 05/18/22 03:47 05/18/22 03:30 05/18/22 03:17 05/18/22 03:17 05/18/22 03:00 05/18/22 02:46 05/18/22 02:46 05/18/22 02:41 05/18/22 02:41 05/18/22 02:30 05/18/22 02:17 05/18/22 02:17 05/18/22 02:00 05/18/22 01:47 05/18/22 01:47 05/18/22 01:30 05/18/22 01:17 05/18/22 01:17 05/18/22 04:00 4 05/18/22 00:00 05/18/22 01:00 05/18/22 00:47 05/18/22 00:47 05/18/22 00:30 05/18/22 00:17 05/18/22 00:17 05/18/22 00:00 05/17/22 23:47 05/17/22 23:47 05/17/22 23:30 05/17/22 23:17 05/17/22 23:17 05/17/22 23:00 05/17/22 22:47 05/17/22 22:47 05/17/22 22:30 05/17/22 22:16 05/17/22 22:16 05/18/22 00:00 05/17/22 23:09 Laboratory Results 05/18/22 04:53 05/18/22 04:53 (1) Osteomyelitis Osteomyelitis location: unspecified site Osteomyelitis type: unspecified type Qualified Code(s): M86.9 - Osteomyelitis, unspecified
[2022-05-18] MEDS ORDERED: LANTUS PER UNIT CHARGE SQ ONE (11:30)
--- NOTE | 2022-05-18 11:43 | Pharmacy Report ---
Pharmacy Glycemic Short Note 2 - Date of Service May 18, 2022 - Glycemic Short BSG Results (Last 24 hours): 05/17/22 05/17/22 05/17/22 12:42 18:43 21:13 Glucose POC Glucose 144 H 212 H 234 H 05/18/22 05/18/22 05/18/22 00:06 03:59 04:53 Glucose 194 H POC Glucose 217 H 182 H 05/18/22 05/18/22 07:51 11:33 Glucose POC Glucose 186 H 136 H OUTPATIENT ANTIDIABETIC REGIMEN: * Basaglar 42 units HS - reports following [facility] ASSESSMENT: 05/18 * BSGs have been running in the 180-230 range over last 24 hrs. * Fasting BSG 186 this AM with 5 units basal on board and after receipt of 12 units correctional insulin overnight. Patient is no longer NPO and surgery no longer planned today. Will give additional basal with lunch and continue to dose per scale at bedtime. * Correctional insulin doses do appear to be bringing down the BSG slightly, therefore will not adjust at this time as primary deficiency appears to be basal insulin. * Patient continues on IV steroids however dose being tapered today. Phenylephrine continues however dose has been titrated down. HD is planned daily at this time, possibly thru Tuesday. All of these factors will likely lead to increased insulin sensitivity. * Date of surgery uncertain at this time. No plans for NPO at this time. 05/17 * Patient transferred to the ICU this AM for pressure support - phenylephrine initiated as well as HD. Patient remains on hydrocortisone. * Hyperkalemia prior to HD today - D50 and insulin admin contributing to BSG > 300 mg/dL, however, BSG overnight was also elevated to 221 mg/dL. * Goal BSG range for ICU patient 140-180 mg/dL. However, as hesitant to provide basal insulin at this time due to severe hypoglycemia on 05/16, will instead utilize lower goal BSG for Novolog and therefore provide some "basal" insulin if BSG's remain above 140 mg/dL * Will add CHO ratio for now due to increased BSG and patient ordered diet. Scheduled for NPO today at midnight in anticipation of possible surgical intervention tomorrow 05/16 * Patient received total of 21 units of insulin yesterday, of which 15 units were basal * Fasting BSG low in 40s, treated per hypoglycemia protocol. Even with decrease in basal dose yesterday, low this morning therefore will hold basal for now PLAN FOR INPATIENT GLYCEMIC CONTROL: * Hold outpatient oral diabetes medications * Basal insulin * Lantus - 5 units with lunch today. Will give additional 5 units tonight if BSG 160 or greater * Bolus insulin * NovoLog per scale ACHS and at 0200 * Goal Range: Low 110 mg/dL - High 140 mg/dL * Correction Factor: 20 mg/dL/unit * Nutritional / Prandial insulin per carb ratio of 1 unit per 9 grams CHO consumed
[2022-05-18] MEDS: DAPTOmycin 550 MG in SYRINGE 0 ML IV SCH (13:35)
--- NOTE | 2022-05-18 13:51 | Hospitalist Progress Note ---
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 - tachycardia, leukocytosis, likely osteo on CT scan in ED - blood cultures drawn here - started on daptmycin in the ED - will continue daptomycin for now - continue cefepime and flagyl pending cultures after 24-48 hours - general surgery consulted - recommend chemical debridement with santyl - will eventually need surgical debridement in the OR and wound vac - possibly Tuesday pending clinical status - Cardiology recommends no further work up as it will not improve her risk - patient is high risk for surgery - telemetry monitoring for now (3) Leukocytosis: Plan: - in the setting of sepsis - IV abx as above - trend WBC (4) Ulcer of sacral region, stage 4: Plan: - IV abx and surgical plan as above (5) Radiation necrosis of skin and subcutaneous: Plan: - see above (6) Acute hyponatremia: Plan: - likely due to sepsis and decrease po intake - unclear degree of acuity as no prior labs available at this time - hold IVF for now as patient is hemodynamically stable and is ESRD - trend Na - monitor on AM labs (7) Lactic acidosis: Plan: - likely in the setting of sepsis - will trend to clearance - IV abx as above (8) End-stage renal disease (ESRD): Plan: - has been on HD for the past year, per patient - HD catheter in right chest - no evidence of infection at catheter site - renal consulted - normal schedule is MWF (9) Diabetes: Plan: - on insulin at home - reportedly on Lantus ?42 units - will give 30 units lantus tonight - reduced to 10 units for episode of hypoglycemia - SSI per protocol - FSG AC+HS - diabetic diet (10) Hypothyroid: Plan: - patient is hypothyroid on labs with TSH 22, FT4 <0.25 - unclear if patient taking medication appropriately - started on IV levothyroxine 100mcg daily - recheck FT4 daily - recheck TSH in 4-6 weeks (11) Anemia: Plan: - chronic anemia in the setting of ESRD - was reportedly getting ?EPO injections with HD per Patient - continue EPO per renal - no signs of active bleeding at [facility] - Hgb 8.8 with unclear baseline but have record of 8.8 in 01/2022 - will monitor for now (12) Thrombocytopenia: Plan: - unclear chronicity - ?bone marrow suppression in the setting of sepsis, ESRD, chronical illness - no signs of bleeding - will monitor (13) Coagulopathy: Plan: - patient not on warfarin - in the setting of sepsis - will trend INR daily for now Plan DVT ppx: heparin SC Code Status: Full Code Eliot Saucedo MD Hospital Medicine Admission and Anticipated Discharge Date Admission Date: May 14, 2022 Subjective The patient is a 66 year old woman with pmh rectal cancer s/p chemoradiation (~20 years ago), cervical/uterine cancer, h/o of chronic rectal bleeding s/p ostomy diversion (?11/2021), ESRD on HD (MWF), CAD s/p ME 2016, HTN, DM2 on insulin who presented with ongoing sacral wound infection. She recently was at [facility] where they did a surgical debridement and took bone cultures/pathology and was started on Daptomycin MWF with HD. She then left AMA from [place] because they felt they were not getting good care there. She reports that since chemoradiation, she has had chronic rectal bleeding requiring frequent hospitalizations. She eventually developed a sacral wound and eventually had a diverting colostomy to help with wound healing. Surgery evaluated her and recommended chemical debridement followed by likely surgical intervention and wound vac system. Renal consulted for HD. Started on daptomycin, cefepime, flagyl. Patient had episode of unstable vitals including elevated HR and went to ICU for close monitoring of BP and HR for HD session. Patient remains in ICU and receiving HD. She is awake and alert. Reports some pain in her left buttock. Otherwise, denies chest pain, shortness of breath, abdominal pain, n/v, cough. Review of Systems Review of Systems: All systems reviewed & are unremarkable except as noted in Subjective Physical Exam Constitutional: well developed, well nourished, + well hydrated, + lethargic (but responds and follows commands), + overweight and + edematous; no acute distress and not ill appearing Eyes: + anicteric sclerae, PERRL and EOM intact bilaterally; no conjunctival abnormality ENMT: Ears: no external ear abnormality Nose: no sinus tenderness and no epistaxis Mouth: no oropharynx abnormality, no oral mucosal abnormality, oral mucous membranes not dry and no dentition abnormality Throat: no tonsil abnormality Neck: trachea midline; no tracheal deviation and no nuchal rigidity Thyroid: normal thyroid; no thyromegaly and thyroid nontender Respiratory: normal respiratory effort; no respiratory distress, no labored breathing, does not use accessory muscles, not tachypneic and no audible wheezes Auscultation: lungs clear to auscultation bilaterally; no crackles, no rales, no rhonchi and no wheezes Cardiovascular: Rate/Rhythm: regular rhythm and + tachycardic Heart Sounds: normal S1 and normal S2; no gallop, no murmur and no cardiac rub Vessels: normal peripheral pulses Extremities: normal capillary refill and + edema Gastrointestinal (Abdomen): Inspection/Auscultation: normal bowel sounds, + abdominal edema, + abdominal surgical scar and + abdominal surgical incision (with partial dihiscence but no drainage or erythema); + abdomen abnormal to inspection (colostomy bag with dark stool contents in LLQ) and abdomen not distended Percussion/Palpation: abdomen soft; abdomen nontender, no guarding, abdomen not rigid and no hepatosplenomegaly Rectal Exam: + abnormal visual inspection of rectum (large sacral decub ulcer stage IV with eschar, necrosis, erythema at edges) Musculoskeletal: Head/Neck/Chest: normocephalic, head atraumatic and neck supple Spine: normal cervical ROM and no cervical spinal tenderness Extremities: strength 5/5 throughout; full ROM of extremities and no clubbing Skin: normal turgor, + lesion (sacral and abdominal wounds) and + ulcer (sacrum, stage IV/unstageable); no rashes, no induration, no jaundice, no dry skin and no erythema Neurologic: moves all extremities and awake; no focal motor deficits Speech / Cognition: normal speech Motor/Sensory: no tremor, no fasciculations and no sensory deficit Cranial Nerves: PERRL, EOM intact bilaterally and tongue midline Psychiatric: Orientation: alert, oriented x 3 and cooperative Speech: normal rate/rhythm/volume of speech Affect: euthymic affect Genitourinary: no CVA tenderness Lymphatic: no lymphadenopathy and no lymphedema Results & Data Results & Data ([facility]) Vital Signs (Past 12 Hours) Vital Signs Temp Pulse Pulse Resp BP Pulse Ox O2 Del Method 05/18/22 13:08 96 H 94/51 L 05/18/22 12:47 97 H 89/56 L 05/18/22 12:17 96 H 98/47 L 05/18/22 12:00 16 96 Nasal Cannula 05/18/22 11:34 95 H 94/48 L 05/18/22 11:17 93 H 101/49 L 05/18/22 11:47 97 H 97/47 L 05/18/22 11:00 95 H 102/53 L 05/18/22 11:17 93 H 16 95 05/18/22 11:17 101/49 L 05/18/22 11:07 98 H 16 94 05/18/22 11:07 102/53 L 05/18/22 11:00 101 H 19 95 05/18/22 10:47 91/44 L 05/18/22 10:47 100 H 15 95 05/18/22 10:34 91/54 L 05/18/22 10:34 98 H 21 95 05/18/22 10:30 100 H 13 96 05/18/22 10:17 95 H 14 95 05/18/22 10:17 92/42 L 05/18/22 10:02 80 16 99 05/18/22 10:02 98/45 L 05/18/22 10:00 83 16 99 05/18/22 09:46 92/59 L 05/18/22 09:46 87 16 97 05/18/22 09:30 93 H 19 99 05/18/22 09:26 92 H 12 99 05/18/22 09:26 103/60 05/18/22 09:17 112/57 L 05/18/22 09:17 93 H 16 98 05/18/22 09:00 94 H 16 96 05/18/22 10:47 105 H 91/44 L 05/18/22 10:32 100 H 91/54 L 05/18/22 10:17 97 H 92/42 L 05/18/22 09:46 88 97/59 L 05/18/22 10:00 79 98/45 L 05/18/22 09:26 91 H 103/60 05/18/22 09:16 36.5 C 92 H 05/18/22 08:47 91/42 L 05/18/22 08:47 95 H 10 L 97 05/18/22 08:30 95 H 18 96 05/18/22 08:18 98 H 14 97 05/18/22 08:18 102/57 L 05/18/22 08:14 96 H 15 98 05/18/22 08:14 106/61 05/18/22 08:02 94 H 18 98 05/18/22 08:02 116/58 L 05/18/22 08:00 91 H 13 98 05/18/22 07:59 91 H 15 98 05/18/22 07:59 121/53 L 05/18/22 07:46 117/53 L 05/18/22 07:46 85 9 L 99 05/18/22 07:30 78 6 L 100 05/18/22 07:16 94/48 L 05/18/22 07:16 81 8 L 98 05/18/22 07:00 87 9 L 97 05/18/22 08:00 36.5 C 05/18/22 08:00 16 97 Nasal Cannula 05/18/22 08:00 Nasal Cannula 05/18/22 06:47 89 11 L 97 05/18/22 06:47 94/50 L 05/18/22 06:40 87 10 L 97 05/18/22 06:30 95 H 10 L 98 05/18/22 06:17 90 15 98 05/18/22 06:17 111/59 L 05/18/22 06:00 84 11 L 98 05/18/22 05:51 88/49 L 05/18/22 05:51 72 7 L 100 05/18/22 05:47 70 5 L 99 05/18/22 05:47 79/44 L 05/18/22 05:30 71 6 L 99 05/18/22 05:17 71 6 L 99 05/18/22 05:17 108/39 L 05/18/22 05:00 72 6 L 99 05/18/22 04:47 72 8 L 99 05/18/22 04:47 107/48 L 05/18/22 04:30 74 7 L 100 05/18/22 04:17 78 8 L 99 05/18/22 04:17 125/47 L 05/18/22 04:00 85 10 L 98 05/18/22 03:47 84 11 L 99 05/18/22 03:47 101/52 L 05/18/22 03:30 71 6 L 99 05/18/22 03:17 72 6 L 99 05/18/22 03:17 98/44 L 05/18/22 03:00 77 7 L 99 05/18/22 02:46 100/48 L 05/18/22 02:46 79 9 L 98 05/18/22 02:41 88/55 L 05/18/22 02:41 75 9 L 99 05/18/22 02:30 72 6 L 99 05/18/22 02:17 93/42 L 05/18/22 02:17 73 7 L 99 05/18/22 02:00 75 8 L 99 05/18/22 04:00 10 L 99 Nasal Cannula O2 Flow Rate 05/18/22 13:08 05/18/22 12:47 05/18/22 12:17 05/18/22 12:00 2 05/18/22 11:34 05/18/22 11:17 05/18/22 11:47 05/18/22 11:00 05/18/22 11:17 05/18/22 11:17 05/18/22 11:07 05/18/22 11:07 05/18/22 11:00 05/18/22 10:47 05/18/22 10:47 05/18/22 10:34 05/18/22 10:34 05/18/22 10:30 05/18/22 10:17 05/18/22 10:17 05/18/22 10:02 05/18/22 10:02 05/18/22 10:00 05/18/22 09:46 05/18/22 09:46 05/18/22 09:30 05/18/22 09:26 05/18/22 09:26 05/18/22 09:17 05/18/22 09:17 05/18/22 09:00 05/18/22 10:47 05/18/22 10:32 05/18/22 10:17 05/18/22 09:46 05/18/22 10:00 05/18/22 09:26 05/18/22 09:16 05/18/22 08:47 05/18/22 08:47 05/18/22 08:30 05/18/22 08:18 05/18/22 08:18 05/18/22 08:14 05/18/22 08:14 05/18/22 08:02 05/18/22 08:02 05/18/22 08:00 05/18/22 07:59 05/18/22 07:59 05/18/22 07:46 05/18/22 07:46 05/18/22 07:30 05/18/22 07:16 05/18/22 07:16 05/18/22 07:00 05/18/22 08:00 05/18/22 08:00 2 05/18/22 08:00 4 05/18/22 06:47 05/18/22 06:47 05/18/22 06:40 05/18/22 06:30 05/18/22 06:17 05/18/22 06:17 05/18/22 06:00 05/18/22 05:51 05/18/22 05:51 05/18/22 05:47 05/18/22 05:47 05/18/22 05:30 05/18/22 05:17 05/18/22 05:17 05/18/22 05:00 05/18/22 04:47 05/18/22 04:47 05/18/22 04:30 05/18/22 04:17 05/18/22 04:17 05/18/22 04:00 05/18/22 03:47 05/18/22 03:47 05/18/22 03:30 05/18/22 03:17 05/18/22 03:17 05/18/22 03:00 05/18/22 02:46 05/18/22 02:46 05/18/22 02:41 05/18/22 02:41 05/18/22 02:30 05/18/22 02:17 05/18/22 02:17 05/18/22 02:00 05/18/22 04:00 4 Laboratory Results Short CBC 05/18/22 Range/Units 04:53 WBC 15.71 H (4.8-10.8) K/ul Hgb 8.1 L (12.0-16.0) g/dl Hct 26.2 L (34.1-44.9) % Plt Count 140 (130-400) K/uL [facility] 05/18/22 04:53 Sodium 126 L Potassium 4.1 D Chloride 94 L Carbon Dioxide 23 BUN 32 H Creatinine 3.81 H D Glucose 194 H Calcium 7.7 L Liver Function 05/18/22 Range/Units 04:53 Total Bilirubin 1.0 (0.2-1.0) mg/dl Direct Bilirubin 0.4 H (0-0.2) mg/dl AST 58 H (13-39) U/L ALT 23 (7-52) U/L Alkaline Phosphatase 429 H (34-104) U/L Albumin 2.0 L (3.4-5.0) gm/dl Medications Administered Current Inpatient Medications Atorvastatin Calcium (Atorvastatin 40 Mg Tab) 40 mg PO QAM [facility] Stop: 06/14/22 08:59 Last Admin: 05/18/22 08:00 Dose: 40 mg Collagenase (Collagenase Oint 30 Gm Tube) 1 appln EXT DAILY [facility] Stop: 06/14/22 08:59 Last Admin: 05/18/22 08:02 Dose: Not Given Dextrose (Dextrose 50% 50 Ml Syringe) 25 - 50 ml IV UD PRN; Protocol PRN Reason: Hypoglycemia Protocol Stop: 06/13/22 18:24 Last Admin: 05/16/22 11:55 Dose: 50 ml Gabapentin (Gabapentin 100 Mg Cap) 100 mg PO QAM [facility] Stop: 06/14/22 08:59 Last Admin: 05/18/22 08:00 Dose: 100 mg Glucagon (Glucagon For Inj 1 Mg Vial) 1 mg SQ UD PRN; Protocol PRN Reason: Hypoglycemia Protocol Stop: 06/13/22 18:24 Glucose (Glucose 40% Gel 15 Gm Tube) 15 - 30 gm PO UD PRN; Protocol PRN Reason: Hypoglycemia Protocol Stop: 06/13/22 18:24 Glucose (Glucose 10 Tab/Tube) 4 - 8 tab PO UD PRN; Protocol PRN Reason: Hypoglycemia Treatment Stop: 06/13/22 18:24 Heparin Sodium (Porcine) (Heparin Sod 5,000 Unit/0.5 Ml Vial) 5,000 units SQ Q12 [facility] Stop: 06/13/22 20:59 Last Admin: 05/18/22 08:00 Dose: 5,000 units Hydromorphone HCl (Hydromorphone Inj 0.5 Mg/0.5 Ml Syr) 0.5 mg IV Q6H PRN PRN Reason: Breakthrough Pain Stop: 05/30/22 18:06 Levothyroxine Sodium 100 mcg/ (Syringe) 5 mls @ 2 mls/min IV DAILY@0900 [facility]; Protocol Stop: 06/15/22 08:59 Last Admin: 05/18/22 08:03 Dose: 2 mls/min Phenylephrine HCl 20 mg/ (Dextrose) 502 mls @ 28.734 mls/hr IV .[id number] [facility]; Protocol Stop: 06/16/22 10:14 Last Admin: 05/18/22 10:11 Dose: Not Given Sodium Chloride (Nss 1000ml) 1,000 mls @ 0 mls/hr IV .Q0M PRN PRN Reason: For Hemodialysis Use ONLY Stop: 05/18/22 14:19 Hydrocortisone Sodium (Succinate 50 mg/ Syringe) 1 mls @ 4 mls/min IV Q8H [facility] Stop: 06/17/22 17:59 Daptomycin 550 mg/ Syringe 11 mls @ 5.5 mls/min IV Q48H [facility]; Protocol Stop: 06/29/22 13:59 Last Admin: 05/18/22 13:35 Dose: 5.5 mls/min Daptomycin 225 mg/ Syringe 4.5 mls @ 2.25 mls/min IV Q48H [facility]; Protocol Stop: 06/30/22 13:59 Insulin Aspart (Insulin Aspart Per Unit) 0 units SC [facility]; Protocol Stop: 06/17/22 11:29 Last Admin: 05/18/22 12:14 Dose: Not Given Insulin Aspart (Insulin Aspart Per Unit) 0 units SC TODAY@0200 [facility]; Protocol Stop: 05/19/22 02:01 Insulin Glargine (Lantus Per Unit Charge) 0 units SQ [facility]; Protocol Stop: 06/16/22 20:59 Last Admin: 05/17/22 21:21 Dose: 5 units Ketorolac Tromethamine (Ketorolac Tromethamine 15 Mg/Ml Vial) 15 mg IV Q6H PRN; Protocol PRN Reason: Pain Stop: 05/21/22 18:44 Last Admin: 05/16/22 20:21 Dose: 15 mg Latanoprost (Latanoprost 0.005% Op Soln 2.5 Ml Btl) 1 drops OP QPM [facility] Stop: 06/13/22 20:59 Last Admin: 05/17/22 21:09 Dose: 1 drops Levothyroxine Sodium (Levothyroxine Sodium 137 Mcg Tablet) 137 mcg PO DAILYBB [facility] Stop: 06/14/22 06:29 Last Admin: 05/15/22 05:47 Dose: 137 mcg Metoprolol Succinate (Metoprolol Succ 25mg Ext Rel Tab) 25 mg PO QAM [facility] Stop: 06/14/22 08:59 Last Admin: 05/17/22 08:40 Dose: Not Given Midodrine (Midodrine Hcl 2.5 Mg Tab) 5 mg PO TID@0800,1200,1700 [facility] Stop: 06/14/22 07:59 Last Admin: 05/18/22 12:17 Dose: 5 mg Miscellaneous (Carbohydrates For Hypoglycemia ) 15 - 30 gm PO UD PRN PRN Reason: Hypoglycemia Protocol Stop: 06/13/22 18:24 Miscellaneous Information (Pharmacy Glycemic Mgmt Consult) 1 each N/A UD PRN PRN Reason: Consult Stop: 06/13/22 18:24 Ondansetron HCl (Ondansetron Inj 2 Mg/Ml 2 Ml Vial) 4 mg IV Q6H PRN PRN Reason: Nausea Stop: 06/13/22 18:19 Oxycodone HCl (Oxycodone Hcl Ir 5 Mg Tab (Immediate Release)) 2.5 mg PO DAILY PRN PRN Reason: Pain Stop: 05/31/22 03:56 Pantoprazole Sodium (Pantoprazole 40 Mg Tab) 40 mg PO DAILY [facility] Stop: 06/14/22 08:59 Last Admin: 05/18/22 08:01 Dose: 40 mg (1) Osteomyelitis Osteomyelitis location: unspecified site Osteomyelitis type: unspecified type Qualified Code(s): M86.9 - Osteomyelitis, unspecified
--- NOTE | 2022-05-18 14:11 | Cardiology Progress Note ---
Date of Service May 18, 2022 Assessment & Plan (1) Preop cardiovascular exam: (2) Sepsis: (3) Thrombocytopenia: (4) Anemia: (5) Ulcer of sacral region, stage 4: (6) Osteomyelitis: (7) Decubitus ulcer of sacral area: (8) Acute hyponatremia: (9) End-stage renal disease (ESRD): (10) Chronic radiation proctitis: (11) Radiation necrosis of skin and subcutaneous: (12) Uterine cancer: (13) Breast CA: (14) Cancer of anorectum: (15) Diabetes: (16) Coronary artery disease: (17) Heart failure with preserved ejection fraction, borderline, class II: (18) PAD (peripheral artery disease): Plan Given her multiple comorbidities including her ischemic cardiomyopathy the patie nt would obviously be a very high risk for any adverse perioperative cardiovascular event. I would place her risk at or greater than 10% Unfortunately, no further cardiac testing or intervention would further lower this risk. Should the patient and or her family understand and accepting of this risk then I would see no need to delay from a cardiac standpoint tolerated HD yesterday and today clinically improved no changes from cardiac standpoint Admission and Anticipated Discharge Date Admission Date: May 14, 2022 Subjective Pt seen and examined, chart reviewed. Much more alert and appropriate responding today. Denies cp, sob or palpitations Review of Systems Review of Systems: All systems reviewed & are unremarkable except as noted in HPI & below Physical Exam Physical Exam: General: Lethargic not responding to questioning. No acute distress. HEENT: Normocephalic, atraumatic. Pupils equal, round and reactive to light and accommodation. Extraocular muscles are intact. Anicteric sclera. Moist mucous membranes. Neck: No JVD. No bruit. Cardiovascular: Regular. Positive S-4. Normal S-1 and S-2. No S-3. No murmurs or rubs. Pulmonary: Clear to auscultation B/L. No rales, rhonchi or wheezing Abdomen: Bowel sounds x 4, soft. No rebound, guarding or tenderness. No organomegaly. Extremities: No clubbing, cyanosis or edema. +2 pedal pulses bilaterally. Skin: Warm and dry. Results & Data ([facility]) Vital Signs (Past 12 Hours) Vital Signs Temp Pulse Pulse Resp BP Pulse Ox O2 Del Method 05/18/22 13:47 103 H 13 97 05/18/22 13:47 93/48 L 05/18/22 13:30 106 H 11 L 98 05/18/22 13:27 100/57 L 05/18/22 13:27 98 H 12 98 05/18/22 13:17 94 H 9 L 98 05/18/22 13:17 110/56 L 05/18/22 13:09 97 H 9 L 97 05/18/22 13:09 94/51 L 05/18/22 13:00 98 H 11 L 99 05/18/22 12:47 92 H 3 L 98 05/18/22 12:47 89/56 L 05/18/22 12:30 103 H 10 L 94 05/18/22 12:17 98 H 4 L 96 05/18/22 12:17 98/47 L 05/18/22 12:00 98 H 6 L 96 05/18/22 11:34 94 H 30 H 97 05/18/22 11:34 94/48 L 05/18/22 11:30 85 3 L 99 05/18/22 13:08 96 H 94/51 L 05/18/22 12:47 97 H 89/56 L 05/18/22 12:17 96 H 98/47 L 05/18/22 12:00 16 96 Nasal Cannula 05/18/22 11:34 95 H 94/48 L 05/18/22 11:17 93 H 101/49 L 05/18/22 11:47 97 H 97/47 L 05/18/22 11:00 95 H 102/53 L 05/18/22 11:17 93 H 16 95 05/18/22 11:17 101/49 L 05/18/22 11:07 98 H 16 94 05/18/22 11:07 102/53 L 05/18/22 11:00 101 H 19 95 05/18/22 10:47 91/44 L 05/18/22 10:47 100 H 15 95 05/18/22 10:34 91/54 L 05/18/22 10:34 98 H 21 95 05/18/22 10:30 100 H 13 96 05/18/22 10:17 95 H 14 95 05/18/22 10:17 92/42 L 05/18/22 10:02 80 16 99 05/18/22 10:02 98/45 L 05/18/22 10:00 83 16 99 05/18/22 09:46 92/59 L 05/18/22 09:46 87 16 97 05/18/22 09:30 93 H 19 99 05/18/22 09:26 92 H 12 99 05/18/22 09:26 103/60 05/18/22 09:17 112/57 L 05/18/22 09:17 93 H 16 98 05/18/22 09:00 94 H 16 96 05/18/22 10:47 105 H 91/44 L 05/18/22 10:32 100 H 91/54 L 05/18/22 10:17 97 H 92/42 L 05/18/22 09:46 88 97/59 L 05/18/22 10:00 79 98/45 L 05/18/22 09:26 91 H 103/60 05/18/22 09:16 36.5 C 92 H 05/18/22 08:47 91/42 L 05/18/22 08:47 95 H 10 L 97 05/18/22 08:30 95 H 18 96 05/18/22 08:18 98 H 14 97 05/18/22 08:18 102/57 L 05/18/22 08:14 96 H 15 98 05/18/22 08:14 106/61 05/18/22 08:02 94 H 18 98 05/18/22 08:02 116/58 L 05/18/22 08:00 91 H 13 98 05/18/22 07:59 91 H 15 98 05/18/22 07:59 121/53 L 05/18/22 07:46 117/53 L 05/18/22 07:46 85 9 L 99 05/18/22 07:30 78 6 L 100 05/18/22 07:16 94/48 L 05/18/22 07:16 81 8 L 98 05/18/22 07:00 87 9 L 97 05/18/22 08:00 36.5 C 05/18/22 08:00 16 97 Nasal Cannula 05/18/22 08:00 Nasal Cannula 05/18/22 06:47 89 11 L 97 05/18/22 06:47 94/50 L 05/18/22 06:40 87 10 L 97 05/18/22 06:30 95 H 10 L 98 05/18/22 06:17 90 15 98 05/18/22 06:17 111/59 L 05/18/22 06:00 84 11 L 98 05/18/22 05:51 88/49 L 05/18/22 05:51 72 7 L 100 05/18/22 05:47 70 5 L 99 05/18/22 05:47 79/44 L 05/18/22 05:30 71 6 L 99 05/18/22 05:17 71 6 L 99 05/18/22 05:17 108/39 L 05/18/22 05:00 72 6 L 99 05/18/22 04:47 72 8 L 99 05/18/22 04:47 107/48 L 05/18/22 04:30 74 7 L 100 05/18/22 04:17 78 8 L 99 05/18/22 04:17 125/47 L 05/18/22 04:00 85 10 L 98 05/18/22 03:47 84 11 L 99 05/18/22 03:47 101/52 L 05/18/22 03:30 71 6 L 99 05/18/22 03:17 72 6 L 99 05/18/22 03:17 98/44 L 05/18/22 03:00 77 7 L 99 05/18/22 02:46 100/48 L 05/18/22 02:46 79 9 L 98 05/18/22 02:41 88/55 L 05/18/22 02:41 75 9 L 99 05/18/22 02:30 72 6 L 99 05/18/22 02:17 93/42 L 05/18/22 02:17 73 7 L 99 05/18/22 04:00 10 L 99 Nasal Cannula O2 Flow Rate 05/18/22 13:47 05/18/22 13:47 05/18/22 13:30 05/18/22 13:27 05/18/22 13:27 05/18/22 13:17 05/18/22 13:17 05/18/22 13:09 05/18/22 13:09 05/18/22 13:00 05/18/22 12:47 05/18/22 12:47 05/18/22 12:30 05/18/22 12:17 05/18/22 12:17 05/18/22 12:00 05/18/22 11:34 05/18/22 11:34 05/18/22 11:30 05/18/22 13:08 05/18/22 12:47 05/18/22 12:17 05/18/22 12:00 2 05/18/22 11:34 05/18/22 11:17 05/18/22 11:47 05/18/22 11:00 05/18/22 11:17 05/18/22 11:17 05/18/22 11:07 05/18/22 11:07 05/18/22 11:00 05/18/22 10:47 05/18/22 10:47 05/18/22 10:34 05/18/22 10:34 05/18/22 10:30 05/18/22 10:17 05/18/22 10:17 05/18/22 10:02 05/18/22 10:02 05/18/22 10:00 05/18/22 09:46 05/18/22 09:46 05/18/22 09:30 05/18/22 09:26 05/18/22 09:26 05/18/22 09:17 05/18/22 09:17 05/18/22 09:00 05/18/22 10:47 05/18/22 10:32 05/18/22 10:17 05/18/22 09:46 05/18/22 10:00 05/18/22 09:26 05/18/22 09:16 05/18/22 08:47 05/18/22 08:47 05/18/22 08:30 05/18/22 08:18 05/18/22 08:18 05/18/22 08:14 05/18/22 08:14 05/18/22 08:02 05/18/22 08:02 05/18/22 08:00 05/18/22 07:59 05/18/22 07:59 05/18/22 07:46 05/18/22 07:46 05/18/22 07:30 05/18/22 07:16 05/18/22 07:16 05/18/22 07:00 05/18/22 08:00 05/18/22 08:00 2 05/18/22 08:00 4 05/18/22 06:47 05/18/22 06:47 05/18/22 06:40 05/18/22 06:30 05/18/22 06:17 05/18/22 06:17 05/18/22 06:00 05/18/22 05:51 05/18/22 05:51 05/18/22 05:47 05/18/22 05:47 05/18/22 05:30 05/18/22 05:17 05/18/22 05:17 05/18/22 05:00 05/18/22 04:47 05/18/22 04:47 05/18/22 04:30 05/18/22 04:17 05/18/22 04:17 05/18/22 04:00 05/18/22 03:47 05/18/22 03:47 05/18/22 03:30 05/18/22 03:17 05/18/22 03:17 05/18/22 03:00 05/18/22 02:46 05/18/22 02:46 05/18/22 02:41 05/18/22 02:41 05/18/22 02:30 05/18/22 02:17 05/18/22 02:17 05/18/22 04:00 4 (1) Osteomyelitis Osteomyelitis location: unspecified site Osteomyelitis type: unspecified type Qualified Code(s): M86.9 - Osteomyelitis, unspecified (2) Decubitus ulcer of sacral area Pressure injury stage: stage 4 Qualified Code(s): L89.154 - Pressure ulcer of sacral region, stage 4
[2022-05-18] MEDS ORDERED: DAPTOmycin 500 MG VIAL IV SCH (18:45)
[2022-05-18] MEDS ORDERED: NON-FORMULARY MEDICATION (Insulin Aspart U-100 [Novolog Flexpen U-100 Insulin] 100 unit/mL SQ SCH (18:45)
[2022-05-18] MEDS ORDERED: oxyCODONE HCL SOLN 5 MG/5 ML UDC PO PRN (18:45)
[2022-05-18] MEDS ORDERED: NITROGLYCERIN SL 0.4 MG/TAB TAB SL PRN (18:45)
[2022-05-18] MEDS ORDERED: NON-FORMULARY MEDICATION (Ondansetron Hcl 4 mg Tablet) PO PRN (18:45)
[2022-05-18] MEDS ORDERED: LOPERAMIDE HCL 2 MG CAP PO PRN (18:45)
[2022-05-18] MEDS ORDERED: hydrOXYzine HCl 25 MG TAB PO PRN (18:45)
[2022-05-18] MEDS ORDERED: DAPTOMYCIN 750 MG IV SCH (18:45)
[2022-05-18] MEDS ORDERED: TRIAMCINOLONE ACET 0.1% CR 15 GM TUBE TOP SCH (18:45)
[2022-05-18] MEDS ORDERED: BRIMONIDINE TIMOLOL OPB SCH (21:00)
[2022-05-18] MEDS ORDERED: LATANOPROST 0.005% OP SOLN 2.5 ML BTL OPB SCH (21:00)
[2022-05-18] MEDS ORDERED: MIDODRINE HCL 2.5 MG TAB PO SCH (21:00)
[2022-05-18] MEDS ORDERED: GABAPENTIN 300 MG CAP PO SCH (21:00)
[2022-05-18] MEDS: LATANOPROST 0.005% OP SOLN 2.5 ML BTL OP SCH (21:06)
[2022-05-18] MEDS: rOPINIRole HCL 0.25 MG TABLET PO SCH (21:07)
[2022-05-18] MEDS: LANTUS PER UNIT CHARGE SQ SCH (21:13)
[2022-05-19] MEDS ORDERED: INSULIN ASPART PER UNIT SC ONE (02:00)
[2022-05-19] MEDS: HYDROCORTISONE SOD 50 MG in SYRINGE 0 ML IV SCH ×3 (02:21→13:48)
[2022-05-19 05:11] LABS: Basophils # (auto) 0.01 K/uL (0-0.2); Basophils % (auto) 0.1 %; Hemoglobin 7.7 g/dl (12.0-16.0); Immature Granulocytes # (auto) 0.04 K/uL (0.00-0.02); Immature Granulocytes % (auto) 0.4 %; Lymphocytes # (auto) 0.67 K/uL (1.2-3.4); Lymphocytes % (auto) 7.3 %; Mean Corpuscular Hemoglobin 30.3 pg (25.0-34.0); Mean Corpuscular Hgb Conc 30.8 g/dL (32.0-36.0); Mean Corpuscular Volume 98.4 fL (80.0-100.0); Mean Platelet Volume 11.2 fL (9.4-12.3); Monocytes # (auto) 0.32 K/uL (0.24-0.82); Monocytes % (auto) 3.5 %; Neutrophils # (auto) 8.09 K/uL (1.4-6.5); Neutrophils % (auto) 88.7 %; Nucleated RBC # (auto) 0.02 K/uL (0-0); Nucleated RBC % (auto) 0.2 %; Platelet Count 88 K/uL (130-400); RDW Coefficient of Variation 22.9 % (11.5-14.5); RDW Standard Deviation 78.9 fL (36.4-46.3); Red Blood Count 2.54 M/uL (3.93-5.22); White Blood Count 9.13 K/ul (4.8-10.8)
[2022-05-19 05:37] LABS: Anisocytosis Present; Basophilic Stippling 1+; Target Cells 1+
[2022-05-19 05:44] LABS: Albumin Globulin Ratio 0.6 (0.9-2); Albumin Level 2.1 gm/dl (3.4-5.0); BUN Creatinine Ratio 9.8 (10-20); Calcium 7.8 mg/dl (8.5-10.1); Creatinine Clr Calc Pharmacy 20.1 ml/min; Est GFR (African American) 18.1 ml/min; Est GFR (Non-African American) 15.6 ml/min; Globulin 3.4 gm/dl (2.5-4.0); Magnesium 1.9 mg/dl (1.7-2.4); Phosphorus 3.3 mg/dl (2.5-4.9); Potassium 3.4 mmol/L (3.5-5.1); Total Protein 5.5 gm/dl (6.0-8.3); Troponin I High Sensitivity 960.1 pg/ml (0-14)
--- NOTE | 2022-05-19 06:27 | Surgery Progress Note ---
Date of Service May 19, 2022 Assessment & Plan (1) Ulcer of sacral region, stage 4: Plan: 05/19/22 at this point we will plan to proceed with sacral debridement biopsy of sacrum for tomorrow At this point the patient still is on low dose Levophed she had dialysis done yesterday the plan is to dialyze her again today discussed the situation with network program manager at this time we will hold off any debridement of the ulceration therefore surgery will be canceled for today Admission and Anticipated Discharge Date Admission Date: May 14, 2022 Subjective Patient has been off pressors since last evening Been dialyzed daily for the last 2 days and another is planned for tomorrow Results & Data ([facility]) Vital Signs (Past 12 Hours) Vital Signs Temp Pulse Resp BP Pulse Ox O2 Del Method O2 Flow Rate 05/19/22 05:17 100 H 9 L 96 05/19/22 05:17 99/54 L 05/19/22 05:00 109 H 12 96 05/19/22 04:17 86 6 L 97 05/19/22 04:17 94/41 L 05/19/22 04:00 88 8 L 98 05/19/22 03:17 101 H 8 L 96 05/19/22 03:17 125/59 L 05/19/22 04:00 8 L 97 Nasal Cannula 2 05/19/22 04:00 36.5 C 05/19/22 03:00 111 H 18 96 05/19/22 02:18 99 H 7 L 97 05/19/22 02:18 125/47 L 05/19/22 02:00 90 7 L 98 05/19/22 01:17 109/47 L 05/19/22 01:17 99 H 7 L 96 05/19/22 01:00 98 H 7 L 96 05/19/22 00:31 101/33 L 05/19/22 00:31 89 8 L 97 05/19/22 00:28 91 H 7 L 96 05/19/22 00:17 93 H 7 L 97 05/19/22 00:17 95/42 L 05/19/22 00:00 94 H 8 L 97 Nasal Cannula 2 05/18/22 23:17 132/54 L 05/18/22 23:17 111 H 15 97 05/18/22 23:00 109 H 15 96 05/18/22 22:17 103 H 12 95 05/18/22 22:17 118/58 L 05/18/22 22:00 105 H 14 95 05/19/22 00:00 10 L 97 Nasal Cannula 2 05/18/22 23:37 105 H 05/18/22 20:00 Nasal Cannula 2 05/18/22 20:00 18 96 Nasal Cannula 2 05/18/22 21:30 109 H 16 96 05/18/22 21:00 92 H 0 L 100 05/18/22 20:30 120 H 13 96 05/18/22 20:17 105 H 4 L 96 05/18/22 20:17 156/63 H 05/18/22 20:00 98 05/18/22 19:30 100 H 10 L 99 05/18/22 19:17 165/63 H 05/18/22 19:17 108 H 14 98 05/18/22 19:00 109 H 16 100 05/18/22 18:38 115 H 18 99 PG Care Time/CCT Total # of Minutes Spent Total Time Spent with Patient: Total time spent is greater than 50% in coordination of care (as documented) at patient's floor/unit and/or counseling patient: Coding Level of Care Code 91784 Subseq Hosp Care Lvl 2 Diagnoses Ulcer of sacral region, stage 4 L98.429
[2022-05-19] MEDS ORDERED: MAG SULFATE 50% 1GM/2ML VIAL IV ONE (07:25)
[2022-05-19] MEDS: COLLAGENASE OINT 30 GM TUBE EXT SCH (07:35)
[2022-05-19] MEDS: FUROSEMIDE 20 MG TAB PO SCH (07:35)
[2022-05-19] MEDS: ATORVASTATIN 40 MG TAB PO SCH (07:35)
[2022-05-19] MEDS: PANTOprazole 40 MG TAB PO SCH (07:36)
[2022-05-19] MEDS: HEPARIN SOD 5,000 UNIT/0.5 ML VIAL SQ SCH ×2 (07:36→21:30)
[2022-05-19] MEDS: GABAPENTIN 100 MG CAP PO SCH ×2 (07:36→21:29)
[2022-05-19] MEDS: INSULIN ASPART PER UNIT SC SCH ×4 (07:40→21:30)
[2022-05-19] MEDS: MAGNESIUM SULFATE / D5W 1 GM/100 ML BAG IV SCH ×2 (07:41→10:08)
[2022-05-19] MEDS ORDERED: SODIUM CHLORIDE 0.9% 1000ML 1,000 ML IV PRN (07:58)
[2022-05-19] MEDS ORDERED: HEPARIN SOD (PORCINE) 1000 UNIT/ML IV ONE (07:58)
[2022-05-19] MEDS: MIDODRINE HCL 10 MG TAB PO SCH ×3 (08:09→16:34)
[2022-05-19] MEDS: LEVOTHYROXINE SODIUM 100 MCG in SYRINGE 0 ML IV SCH (08:09)
--- NOTE | 2022-05-19 08:27 | Critical Care Progress Note ---
Date of Service May 19, 2022 Assessment & Plan (1) Sepsis: Plan: Reason Critically Ill: 66-year-old female here with a PMHx significant for ESRD on thrice weekly dialysis, CAD, PAD, and rectal cancer (f/p chemoradiation approximately 20 years ago), and DM2, who presented with sepsis secondary to sacral ulcer/osteomyelitis (still awaiting surgical debridement) and was admitted for vasopressor support. Now off vasopressor support since yesterday 05/18, and currently awaiting surgical debridement of sacral ulcer/osteomyelitis. Neuro - [facility] ICU: [NEGATIVE] Sedation: None Analgesia: IV Toradol as needed, IV Dilaudid as needed. Gabapentin 100 mg every morning, 300 mg at bedtime. Cardiac -history of CAD, PAD * CAD: Patient has past medical history of AL with partial LAD obstruction treated medically (due to increased bleeding risk). Continue atorvastatin 40 mg qAM. * HFpEF: Midodrine dose increased to 10 mg 3 times daily. * Hypotension: Appears resolved. Patient no longer requires pressor support as of yesterday. * Elevated troponin: Likely secondary to ischemic process induced by sepsis, chronic CAD. Echo on 05/17/2022 showed EF 35%, moderate global hypokinesis of the left ventricle, as well as grade 2 diastolic dysfunction. New left bundle branch block on EKG. Patient not a candidate for heparin drip or PCI due to increased bleeding risk (cardiology following). Consider restarting metoprolol, initiating DELPHINE inhibitor therapy now that hypotension is resolved. Respiratory - * Tachypnea: Patient now on 2 L nasal cannula, saturating 96% (patient has no home O2 requirement), down from BiPAP yesterday. Continue to wean as tolerated. GI - Surgery deferred again today. Cardiorenal diet. N.p.o. midnight. RENAL/LYTES - * Hyponatremia, hyperkalemia, LUDIN. Electrolyte derangement likely secondary to ESRD associated volume overload. Expect improvement with dialysis. * I/O: +4.698 L since admission. * Dialysis again today for further diuresis. Per nephrology: Daily dialysis for next several days to optimize volume status. 3 L removed 05/17, 3.5 L removed yesterday. Otherwise, appreciate nephro recs. As MAP now 77 as of this morning, patient would likely not need phenylephrine before dialysis today. - [No concerns at this time.] ENDO - Hydrocortisone IV further weaned to q12h. HEME - [Stable H&H.] * Chronic anemia secondary to ESRD on dialysis. Currently on erythropoietin. ID - * Osteomyelitis: Sacral decubitus ulcer stage IV. Continue Daptomycin. * Leukocytosis: Resolved, WBC-9.13, down from 15 yesterday. Repeat blood cultures negative x24 hours. Await final culture results. LINES/IV ACCESS - PIVs intact, left-sided permacath DVT PROPHYLAXIS - IPC Thank you for allowing us to be part of this patient's care. Please refer to Dr. Quintero's documentation for any further recommendations. (2) PAD (peripheral artery disease): (3) Heart failure with preserved ejection fraction, borderline, class II: (4) Coronary artery disease: (5) Ulcer of sacral region, stage 4: (6) Osteomyelitis: (7) End-stage renal disease (ESRD): Admission and Anticipated Discharge Date Admission Date: May 14, 2022 Supervising Physician Co-Signing Physician Notes Dr. Brock was the resident-physician during care of patient. I separately evaluated patient for man portions of the history and the exam. I was present during the critical portion of medical decision making, and I discussed the case with the resident. I generally agree with the findings and plan except for any additions/exceptions noted. Patient seen and examined at bedside. No acute distress, no adverse events overnight Patient was off vasopressor support at the time of examination Her map was in the 70s. She stated that she is feeling well Denied any chest pain, shortness of breath is improved. No headache, no nausea or vomiting. Has been afebrile. Constitutional: No acute distress HEENT: EOMI, PERRLA Respiratory system: Decreased air entry bilaterally, no wheeze, no rhonchi, positive crackles bilaterally CVS: S1-S2 positive, no murmurs or gallops, distant heart sounds Abdomen: Soft, nontender, nondistended, positive bowel sounds x4, positive colostomy Extremities: +2 pulses bilaterally radialis/ dorsalis pedis, no cyanosis, +2 edema bilateral lower extremity Neuro: Awake alert oriented x3 Psych: Normal mood and affect G/U: No Santiago --Prophylaxis VTE: Heparin GI: Pantoprazole Lines: Peripheral, right-sided permacath Diet: Cardiorenal Plan: In/out: Approximately - 2.5 L as 3.5 L was removed from dialysis Decrease hydrocortisone to every 12 hours. Increase midodrine to 10 mg 3 times daily Patient supposed to get dialysis today. With dialysis he usually needs to phenylephrine support. Will continue to monitor in the ICU where she is going for the OR tomorrow. Magnesium has been replaced. DC IV levothyroxine. Continue with p.o. levothyroxine. Hemoglobin trended down a little bit Will repeat H&H later today Change gabapentin to 200 mg nightly and 100 mg in the a.m. I have personally spent 35 minutes of critical care time in the direct management of this patient. This is a life/limb threatening event. This includes time spent evaluating patient, direct bedside care, chart review, placing orders, interpretation of diagnostic studies, discussion with consultants, patient, and/or family members regarding treatment decisions, as well as other required patient management activities. This time is exclusive of all separately billable procedures, and teaching time and separate from and in addition to any other critical care service time. Subjective Pt. awake in bed this morning. She denies headache, chest pain, shortness of breath, abdominal pain, or back pain. She reports some nausea and vomiting overnight, which nursing denies. She appears oriented to self and time, though not location. She reports feeling better overall vs. yesterday. Surgery for osteomyelitis debridement has been pushed back to tomorrow. Review of Systems Review of Systems: All systems reviewed & are unremarkable except as noted in HPI & below Physical Exam Physical Exam: General: Well-appearing, alert, interactive, and in no acute distress. HEENT: Normocephalic, atraumatic. EOM intact. Good conjugate gaze. Nares patent. Moist mucosal membranes. Neck: Supple. No lymphadenopathy. Normal ROM. CV: Regular rate and rhythm. Normal S1 and S2. No murmurs gallops or rubs. Respiratory: Bibasilar crackles noted. No rhonchi no wheeze heard. Moderate respiratory effort. Abdomen: Soft, nondistended abdomen. No bruits heard on auscultation. No tenderness to deep palpation. Colostomy present. Extremities: Pitting edema bilaterally in lower extremity. Neuro: Alert and oriented x3. Results & Data Results & Data ([facility]) Vital Signs (Past 12 Hours) Vital Signs Temp Pulse Resp BP Pulse Ox O2 Del Method O2 Flow Rate 05/19/22 05:17 100 H 9 L 96 05/19/22 05:17 99/54 L 05/19/22 05:00 109 H 12 96 05/19/22 04:17 86 6 L 97 05/19/22 04:17 94/41 L 05/19/22 04:00 88 8 L 98 05/19/22 03:17 101 H 8 L 96 05/19/22 03:17 125/59 L 05/19/22 04:00 8 L 97 Nasal Cannula 2 05/19/22 04:00 36.5 C 05/19/22 03:00 111 H 18 96 05/19/22 02:18 99 H 7 L 97 05/19/22 02:18 125/47 L 05/19/22 02:00 90 7 L 98 05/19/22 01:17 109/47 L 05/19/22 01:17 99 H 7 L 96 05/19/22 01:00 98 H 7 L 96 05/19/22 00:31 101/33 L 05/19/22 00:31 89 8 L 97 05/19/22 00:28 91 H 7 L 96 05/19/22 00:17 93 H 7 L 97 05/19/22 00:17 95/42 L 05/19/22 00:00 94 H 8 L 97 Nasal Cannula 2 05/18/22 23:17 132/54 L 05/18/22 23:17 111 H 15 97 05/18/22 23:00 109 H 15 96 05/18/22 22:17 103 H 12 95 05/18/22 22:17 118/58 L 05/18/22 22:00 105 H 14 95 05/19/22 00:00 10 L 97 Nasal Cannula 2 05/18/22 23:37 105 H 05/18/22 21:30 109 H 16 96 05/18/22 21:00 92 H 0 L 100 05/18/22 20:30 120 H 13 96 Resident Activity Tracking Resident Involvement: Resident Care Provided Care Provided: Adult Hospital Medicine (1) Osteomyelitis Osteomyelitis location: unspecified site Osteomyelitis type: unspecified type Qualified Code(s): M86.9 - Osteomyelitis, unspecified
[2022-05-19] MEDS ORDERED: NON-FORMULARY MEDICATION (Insulin Glargine [Basaglar Kwikpen U-100 Insulin] 100 unit/mL (3 SQ SCH (09:00)
[2022-05-19] MEDS ORDERED: DAKIN'S SOLN 0.25% HALF STRENGTH 473ML BTL EXT SCH (09:00)
[2022-05-19] MEDS ORDERED: LEVOTHYROXINE SODIUM 137 MCG TABLET PO SCH (09:00)
[2022-05-19] MEDS ORDERED: LANTUS PER UNIT CHARGE SQ ONE (09:00)
[2022-05-19] MEDS ORDERED: PANTOprazole 40 MG TAB PO SCH (09:00)
[2022-05-19] MEDS: HEPARIN SOD (PORCINE) 1000 UNIT/ML IV SCH ×3 (09:50→13:47)
--- NOTE | 2022-05-19 10:01 | Nephrology Progress Note ---
Date of Service May 19, 2022 Assessment & Plan (1) End-stage renal disease (ESRD): Plan: ESRD MWF at [facility] via dialysis catheter Last dialysed on 05/18 w/ 3.5L UF (on pressor); on 05/17 had 3L UF w/ pressor K normalized; ongoing marked volume overload new LBBB on ECG, tachypneic 05/17 > moved to ICU and w/ pressor support - cardiology following; not a cardiac cath candidate ->>>>dialysis today and likely next several days w/ pressor support to optimize volume status; follow daily for treatment tolerance/need >> volume status improving and reasonable at this point to plan OR tomorrow; If OR will eval for need for HD tomorrow or not ->>>dialysis catheter running reversed today; catheter malfunction may require exchange if function worsens -max dose epo w/ tx >>>will ensure pharmacy dosing daptomycin post HD (2) Osteomyelitis: Plan: - awaiting surgical debridement > surgery evaluating daily, tentative for 05/20 - Continue on the MWF or/ and post HD Daptomycin Admission and Anticipated Discharge Date Admission Date: May 14, 2022 Subjective no interval events except off pressor 730 AM through start of HD today at least; OR planned tentatively for am; tolerated 3.5L UF yesterday; feels her breathing improved; c/o poor sleep Review of Systems Review of Systems: All systems reviewed & are unremarkable except as noted in Subjective Physical Exam Constitutional: well developed, well nourished, + obese, + frail appearing and cooperative; no acute distress Eyes: EOM intact bilaterally ENMT: Ears: no external ear abnormality Nose: no external nose abnormality Mouth: + dry oral mucous membranes Neck: no nuchal rigidity Respiratory: normal respiratory effort (on 2L 02nc); no labored breathing, does not use accessory muscles, no cough, + not able to speak in complete sentence and not tachypneic Auscultation: + diminished lung sounds Cardiovascular: Rate/Rhythm: regular rate and regular rhythm Extremities: + edema (2-3+ BLE) Gastrointestinal (Abdomen): Inspection/Auscultation: abdomen normal to inspection (w/ colostomy present) and normal bowel sounds Percussion/Palpation: abdomen soft; abdomen nontender Musculoskeletal: Extremities: + abnormal strength Skin: no rashes, warm and dry Psychiatric: Orientation: oriented to person, oriented to place and cooperative Affect: euthymic affect Results & Data ([facility]) Vital Signs (Past 12 Hours) Vital Signs Temp Pulse Pulse Resp BP Pulse Ox O2 Del Method 05/19/22 09:30 89 88/54 L 05/19/22 09:15 95 H 101/59 L 05/19/22 09:00 36.5 C 94 H 05/19/22 09:11 121/62 05/19/22 09:11 94 H 16 96 05/19/22 09:00 96 H 16 97 05/19/22 08:17 110 H 16 96 05/19/22 08:17 110/58 L 05/19/22 08:00 111 H 12 95 05/19/22 07:17 114/46 L 05/19/22 07:17 89 16 97 05/19/22 07:00 97 H 16 95 05/19/22 09:18 Nasal Cannula 05/19/22 09:18 36.5 C 05/19/22 08:00 97 Nasal Cannula 05/19/22 05:17 100 H 9 L 96 05/19/22 05:17 99/54 L 05/19/22 05:00 109 H 12 96 05/19/22 04:17 86 6 L 97 05/19/22 04:17 94/41 L 05/19/22 04:00 88 8 L 98 05/19/22 03:17 101 H 8 L 96 05/19/22 03:17 125/59 L 05/19/22 04:00 8 L 97 Nasal Cannula 05/19/22 04:00 36.5 C 05/19/22 03:00 111 H 18 96 05/19/22 02:18 99 H 7 L 97 05/19/22 02:18 125/47 L 05/19/22 02:00 90 7 L 98 05/19/22 01:17 109/47 L 05/19/22 01:17 99 H 7 L 96 05/19/22 01:00 98 H 7 L 96 05/19/22 00:31 101/33 L 05/19/22 00:31 89 8 L 97 05/19/22 00:28 91 H 7 L 96 05/19/22 00:17 93 H 7 L 97 05/19/22 00:17 95/42 L 05/19/22 00:00 94 H 8 L 97 Nasal Cannula 05/18/22 23:17 132/54 L 05/18/22 23:17 111 H 15 97 05/18/22 23:00 109 H 15 96 05/18/22 22:17 103 H 12 95 05/18/22 22:17 118/58 L 05/18/22 22:00 105 H 14 95 05/19/22 00:00 10 L 97 Nasal Cannula 05/18/22 23:37 105 H O2 Flow Rate 05/19/22 09:30 05/19/22 09:15 05/19/22 09:00 05/19/22 09:11 05/19/22 09:11 05/19/22 09:00 05/19/22 08:17 05/19/22 08:17 05/19/22 08:00 05/19/22 07:17 05/19/22 07:17 05/19/22 07:00 05/19/22 09:18 2 05/19/22 09:18 05/19/22 08:00 2 05/19/22 05:17 05/19/22 05:17 05/19/22 05:00 05/19/22 04:17 05/19/22 04:17 05/19/22 04:00 05/19/22 03:17 05/19/22 03:17 05/19/22 04:00 2 05/19/22 04:00 05/19/22 03:00 05/19/22 02:18 05/19/22 02:18 05/19/22 02:00 05/19/22 01:17 05/19/22 01:17 05/19/22 01:00 05/19/22 00:31 05/19/22 00:31 05/19/22 00:28 05/19/22 00:17 05/19/22 00:17 05/19/22 00:00 2 05/18/22 23:17 05/18/22 23:17 05/18/22 23:00 05/18/22 22:17 05/18/22 22:17 05/18/22 22:00 05/19/22 00:00 2 05/18/22 23:37 Laboratory Results 05/19/22 05:02 05/19/22 05:02 (1) Osteomyelitis Osteomyelitis location: unspecified site Osteomyelitis type: unspecified type Qualified Code(s): M86.9 - Osteomyelitis, unspecified
--- NOTE | 2022-05-19 10:12 | Cardiology Progress Note ---
Date of Service May 19, 2022 Assessment & Plan (1) Preop cardiovascular exam: (2) Sepsis: (3) Thrombocytopenia: (4) Anemia: (5) Ulcer of sacral region, stage 4: (6) Osteomyelitis: (7) Decubitus ulcer of sacral area: (8) Acute hyponatremia: (9) End-stage renal disease (ESRD): (10) Chronic radiation proctitis: (11) Radiation necrosis of skin and subcutaneous: (12) Uterine cancer: (13) Breast CA: (14) Cancer of anorectum: (15) Diabetes: (16) Coronary artery disease: (17) Heart failure with preserved ejection fraction, borderline, class II: (18) PAD (peripheral artery disease): Plan Given her multiple comorbidities including her ischemic cardiomyopathy the patie nt would obviously be a very high risk for any adverse perioperative cardiovascular event. I would place her risk at or greater than 10% Unfortunately, no further cardiac testing or intervention would further lower this risk. Should the patient and or her family understand and accepting of this risk then I would see no need to delay from a cardiac standpoint tolerating HD clinically improved, off pressors no changes from cardiac standpoint Admission and Anticipated Discharge Date Admission Date: May 14, 2022 Subjective Patient seen and examined, chart reviewed. Currently undergoing hemodialysis. No events overnight. Pressors have been discontinued. Clinically she states that she feels very tired and worn out with significant pain at the ulcer site. Review of Systems Review of Systems: All systems reviewed & are unremarkable except as noted in HPI & below Physical Exam Physical Exam: General: AAO x 3. No acute distress. HEENT: Normocephalic, atraumatic. Pupils equal, round and reactive to light and accommodation. Extraocular muscles are intact. Anicteric sclera. Moist mucous membranes. Neck: No JVD. No bruit. Cardiovascular: Regular. Positive S-4. Normal S-1 and S-2. No S-3. No murmurs or rubs. Pulmonary: Clear to auscultation B/L. No rales, rhonchi or wheezing Abdomen: Bowel sounds x 4, soft. No rebound, guarding or tenderness. No organomegaly. Extremities: No clubbing, cyanosis or edema. +2 pedal pulses bilaterally. Skin: Warm and dry. Results & Data ([facility]) Vital Signs (Past 12 Hours) Vital Signs Temp Pulse Pulse Resp BP Pulse Ox O2 Del Method 05/19/22 09:30 89 88/54 L 05/19/22 09:15 95 H 101/59 L 05/19/22 09:00 36.5 C 94 H 05/19/22 09:11 121/62 05/19/22 09:11 94 H 16 96 05/19/22 09:00 96 H 16 97 05/19/22 08:17 110 H 16 96 05/19/22 08:17 110/58 L 05/19/22 08:00 111 H 12 95 05/19/22 07:17 114/46 L 05/19/22 07:17 89 16 97 05/19/22 07:00 97 H 16 95 05/19/22 09:18 Nasal Cannula 05/19/22 09:18 36.5 C 05/19/22 08:00 97 Nasal Cannula 05/19/22 05:17 100 H 9 L 96 05/19/22 05:17 99/54 L 05/19/22 05:00 109 H 12 96 05/19/22 04:17 86 6 L 97 05/19/22 04:17 94/41 L 05/19/22 04:00 88 8 L 98 05/19/22 03:17 101 H 8 L 96 05/19/22 03:17 125/59 L 05/19/22 04:00 8 L 97 Nasal Cannula 05/19/22 04:00 36.5 C 05/19/22 03:00 111 H 18 96 05/19/22 02:18 99 H 7 L 97 05/19/22 02:18 125/47 L 05/19/22 02:00 90 7 L 98 05/19/22 01:17 109/47 L 05/19/22 01:17 99 H 7 L 96 05/19/22 01:00 98 H 7 L 96 05/19/22 00:31 101/33 L 05/19/22 00:31 89 8 L 97 05/19/22 00:28 91 H 7 L 96 05/19/22 00:17 93 H 7 L 97 05/19/22 00:17 95/42 L 05/19/22 00:00 94 H 8 L 97 Nasal Cannula 05/18/22 23:17 132/54 L 05/18/22 23:17 111 H 15 97 05/18/22 23:00 109 H 15 96 05/18/22 22:17 103 H 12 95 05/18/22 22:17 118/58 L 05/19/22 00:00 10 L 97 Nasal Cannula 05/18/22 23:37 105 H O2 Flow Rate 05/19/22 09:30 05/19/22 09:15 05/19/22 09:00 05/19/22 09:11 05/19/22 09:11 05/19/22 09:00 05/19/22 08:17 05/19/22 08:17 05/19/22 08:00 05/19/22 07:17 05/19/22 07:17 05/19/22 07:00 05/19/22 09:18 2 05/19/22 09:18 05/19/22 08:00 2 05/19/22 05:17 05/19/22 05:17 05/19/22 05:00 05/19/22 04:17 05/19/22 04:17 05/19/22 04:00 05/19/22 03:17 05/19/22 03:17 05/19/22 04:00 2 05/19/22 04:00 05/19/22 03:00 05/19/22 02:18 05/19/22 02:18 05/19/22 02:00 05/19/22 01:17 05/19/22 01:17 05/19/22 01:00 05/19/22 00:31 05/19/22 00:31 05/19/22 00:28 05/19/22 00:17 05/19/22 00:17 05/19/22 00:00 2 05/18/22 23:17 05/18/22 23:17 05/18/22 23:00 05/18/22 22:17 05/18/22 22:17 05/19/22 00:00 2 05/18/22 23:37 (1) Osteomyelitis Osteomyelitis location: unspecified site Osteomyelitis type: unspecified type Qualified Code(s): M86.9 - Osteomyelitis, unspecified (2) Decubitus ulcer of sacral area Pressure injury stage: stage 4 Qualified Code(s): L89.154 - Pressure ulcer of sacral region, stage 4
--- NOTE | 2022-05-19 10:45 | Billing Data ---
Date of Service May 19, 2022 Coding Level of Care Code Critical Care 1st 30-74 mins Time Spent (min) 35
--- NOTE | 2022-05-19 11:14 | Pharmacy Report ---
Pharmacy Glycemic Short Note 2 - Date of Service May 19, 2022 - Glycemic Short BSG Results (Last 24 hours): 05/18/22 05/18/22 05/18/22 11:33 16:02 21:11 Glucose POC Glucose 136 H 217 H 270 H 05/19/22 05/19/22 05/19/22 02:25 05:02 07:29 Glucose 259 H POC Glucose 262 H 270 H OUTPATIENT ANTIDIABETIC REGIMEN: * Basaglar 42 units HS - reports following MTM clinic ASSESSMENT: 05/19 * BSGs remain elevated despite receipt of 38 units insulin yesterday * Again BSG pattern suggests basal insulin deficiency. Will continue to uptitrate basal doses, cautiously given hypoglycemic event earlier this admission and upcoming NPO status. * Surgery planned for tomorrow. NPO planned after MN. * IV levothyroxine converted to PO in home dosage. IV steroid dose again tapered down. Expect improved insulin sensitivity with these changes. * HD again planned today. 05/18 * BSGs have been running in the 180-230 range over last 24 hrs. * Fasting BSG 186 this AM with 5 units basal on board and after receipt of 12 units correctional insulin overnight. Patient is no longer NPO and surgery no longer planned today. Will give additional basal with lunch and continue to dose per scale at bedtime. * Correctional insulin doses do appear to be bringing down the BSG slightly, therefore will not adjust at this time as primary deficiency appears to be basal insulin. * Patient continues on IV steroids however dose being tapered today. Phenylephrine continues however dose has been titrated down. HD is planned daily at this time, possibly thru Tuesday. All of these factors will likely lead to increased insulin sensitivity. * Date of surgery uncertain at this time. No plans for NPO at this time. 05/17 * Patient transferred to the ICU this AM for pressure support - phenylephrine initiated as well as HD. Patient remains on hydrocortisone. * Hyperkalemia prior to HD today - D50 and insulin admin contributing to BSG > 300 mg/dL, however, BSG overnight was also elevated to 221 mg/dL. * Goal BSG range for ICU patient 140-180 mg/dL. However, as hesitant to provide basal insulin at this time due to severe hypoglycemia on 05/16, will instead utilize lower goal BSG for Novolog and therefore provide some "basal" insulin if BSG's remain above 140 mg/dL * Will add CHO ratio for now due to increased BSG and patient ordered diet. Scheduled for NPO today at midnight in anticipation of possible surgical intervention tomorrow PLAN FOR INPATIENT GLYCEMIC CONTROL: * Hold outpatient oral diabetes medications * Basal insulin * Lantus - 12 units x 1 this AM. Will give additional 5 units tonight if BSG 140 or greater * Bolus insulin * NovoLog per scale ACHS and at 0200 * Goal Range: Low 110 mg/dL - High 140 mg/dL * Correction Factor: 20 mg/dL/unit * Nutritional / Prandial insulin per carb ratio of 1 unit per 9 grams CHO consumed
[2022-05-19] MEDS ORDERED: INSULIN ASPART PER UNIT SC SCH (11:30)
--- NOTE | 2022-05-19 11:34 | Electrocardiogram Report ---
Test Reason : Blood Pressure : / mmHG Vent. Rate : 101 BPM Atrial Rate : 101 BPM P-R Int : 162 ms QRS Dur : 106 ms QT Int : 358 ms P-R-T Axes : 060 073 263 degrees QTc Int : 464 ms Sinus tachycardia with occasional Premature ventricular complexes Low voltage QRS Cannot rule out Anterior infarct , age undetermined Abnormal ECG When compared with ECG of 17-MAY-2022 08:12, Premature ventricular complexes are now Present Left bundle branch block is no longer Present Minimal criteria for Anterior infarct are now Present Confirmed by Woo Álvarez ([id number]) on 05/19/2022 11:34:08 AM Referred By: REFERRED SELF Confirmed By:Woo Álvarez
--- NOTE | 2022-05-19 11:44 | Hospitalist Progress Note ---
Date of Service May 19, 2022 Assessment & Plan (1) Sepsis: Plan: - patient with tachycardia, leukocytosis, lactic acidosis - source likely stage IV sacral ulcer with likely underlying osteomyelitis - broad spectrum abx - surgical consult - ICU at this time - requiring phenylephrine support for HD, tolerating well - debridement planned for 05/20 in am (2) Osteomyelitis: Plan: - 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 - received surgical debridement at [facility] with bone culture/biopsy - was on daptomycin there with 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 - tachycardia, leukocytosis, likely osteo on CT scan in ED - blood cultures drawn here - started on daptmycin in the ED - will continue daptomycin for now - continue cefepime and flagyl pending cultures after 24-48 hours - general surgery consulted - recommend chemical debridement with santyl - to be performed on 05/[address] Dela Cruz (3) Ulcer of sacral region, stage 4: Plan: - IV abx and surgical plan as above - pain control as a goal (4) Radiation necrosis of skin and subcutaneous: Plan: - plan as above (5) Acute hyponatremia: Plan: - likely due to sepsis and decrease po intake - unclear degree of acuity as no prior labs available at this time - hold IVF for now as patient is hemodynamically stable and is ESRD - trend Na - monitor on AM labs-improved to 132 (6) Lactic acidosis: Plan: - likely in the setting of sepsis - resolved (7) End-stage renal disease (ESRD): Plan: - has been on HD for the past year, per patient - HD catheter in right chest - no evidence of infection at catheter site - renal consulted - normal schedule is MWF (8) Diabetes: Plan: - on insulin at home -cont insulin protocol per ICU -at inpatient goal - diabetic diet (9) Hypothyroid: Plan: - patient is hypothyroid on labs with TSH 22, FT4 <0.25 - unclear if patient taking medication appropriately - cont same home dose given separately from other meds here and recheck TFTs in 6 weeks. (10) Anemia: Plan: - chronic anemia in the setting of ESRD and GI losses (reported but not obs erved) and phlebotomy - was reportedly getting ?EPO injections with HD per Patient - continue EPO per renal - no signs of active bleeding at this time -Hb stable around 8.1 - will monitor for now (11) Thrombocytopenia: Plan: - unclear chronicity - likely consumption in sepsis, ESRD, chronic illness - no signs of bleeding - will monitor (12) Coagulopathy: Plan: - patient not on warfarin - in the setting of sepsis -DDx includes but not limited to DIC vs poor nutrition. - will trend INR daily for now Plan DVT ppx: heparin SC Code Status: Full Code Anabel Escobar DO [facility]ist Admission and Anticipated Discharge Date Admission Date: May 14, 2022 Subjective The patient is a 66 year old woman with pmh rectal cancer s/p chemoradiation (~20 years ago), cervical/uterine cancer, h/o of chronic rectal bleeding s/p ostomy diversion (?11/2021), ESRD on HD (MWF), CAD s/p [place] 2016, HTN, DM2 on insulin who presented with ongoing sacral wound infection. She recently was at [facility] where they did a surgical debridement and took bone cultures/pathology and was started on Daptomycin MWF with HD. She then left AMA from the post-discharge rehab because they felt they were not getting good care there. She reports that since chemoradiation, she has had chronic rectal ble eding requiring frequent hospitalizations. She eventually developed a sacral wound and eventually had a diverting colostomy to help with wound healing. Surgery evaluated her and recommended chemical debridement followed by likely surgical intervention and wound vac system. Renal consulted for HD. Started on daptomycin, cefepime, flagyl. Patient had episode of unstable vitals including elevated HR and went to ICU for close monitoring of BP and HR for HD session. Has been requiring pressor support during hemodialysis to achieve goals. She is fatigued but otherwise doing ok. is at bedside and they are both interested in understanding the plan further, which was explained. Multiple aspects of the care plan was reviewed with both She denies any chest pain or SOB Review of Systems Review of Systems: All systems were reviewed and negative except as indicated in subjective above. Physical Exam Physical Exam: CONSTITUTIONAL: obese, edematous , vitals as above, generally NAD, easily falls asleep EYES: normal conjunctivae, no scleral icterus ENT: external ear and nose normal, MMM NECK: trachea midline, RESPIRATORY: clear to auscultation bilaterally, no crackles, rales or wheezes, normal respiratory effort CARDIOVASCULAR: regular rate and rhythm, S1 and 2 heard without murmurs, gallops or rubs, no JVD, no peripheral edema CHEST: inspection of chest reveals a HD catheter in right anterior chest and an US guided PIV in the upper right arm. GASTROINTESTINAL: soft, nontender, ND, +colostomy with formed stool present. no guarding MUSCULOSKELETAL: generalized weakness, head is normocephalic and atraumatic, SKIN: warm and dry, sacral ulcer was not viewed because of patient's limited mobility. NEUROLOGIC: CN 2-12 grossly intact, no sensory deficit, normal cognition, normal speech, no tremor PSYCHIATRIC: alert cooperative and oriented to person, place and time. Results & Data Results & Data ([facility]) Vital Signs (Past 12 Hours) Vital Signs Temp Pulse Pulse Resp BP Pulse Ox O2 Del Method 05/19/22 11:00 85 92/53 L 05/19/22 10:30 97 H 103/59 L 05/19/22 10:00 96 H 103/60 05/19/22 09:30 89 88/54 L 05/19/22 09:15 95 H 101/59 L 05/19/22 09:00 36.5 C 94 H 05/19/22 09:11 121/62 05/19/22 09:11 94 H 16 96 05/19/22 09:00 96 H 16 97 05/19/22 08:17 110 H 16 96 05/19/22 08:17 110/58 L 05/19/22 08:00 111 H 12 95 05/19/22 07:17 114/46 L 05/19/22 07:17 89 16 97 05/19/22 07:00 97 H 16 95 05/19/22 09:18 Nasal Cannula 05/19/22 09:18 36.5 C 05/19/22 08:00 97 Nasal Cannula 05/19/22 05:17 100 H 9 L 96 05/19/22 05:17 99/54 L 05/19/22 05:00 109 H 12 96 05/19/22 04:17 86 6 L 97 05/19/22 04:17 94/41 L 05/19/22 04:00 88 8 L 98 05/19/22 03:17 101 H 8 L 96 05/19/22 03:17 125/59 L 05/19/22 04:00 8 L 97 Nasal Cannula 05/19/22 04:00 36.5 C 05/19/22 03:00 111 H 18 96 05/19/22 02:18 99 H 7 L 97 05/19/22 02:18 125/47 L 05/19/22 02:00 90 7 L 98 05/19/22 01:17 109/47 L 05/19/22 01:17 99 H 7 L 96 05/19/22 01:00 98 H 7 L 96 05/19/22 00:31 101/33 L 05/19/22 00:31 89 8 L 97 05/19/22 00:28 91 H 7 L 96 05/19/22 00:17 93 H 7 L 97 05/19/22 00:17 95/42 L 05/19/22 00:00 94 H 8 L 97 Nasal Cannula 05/19/22 00:00 10 L 97 Nasal Cannula O2 Flow Rate 05/19/22 11:00 05/19/22 10:30 05/19/22 10:00 05/19/22 09:30 05/19/22 09:15 05/19/22 09:00 05/19/22 09:11 05/19/22 09:11 05/19/22 09:00 05/19/22 08:17 05/19/22 08:17 05/19/22 08:00 05/19/22 07:05/19/22 07:17 05/19/22 07:00 05/19/22 09:18 2 05/19/22 09:18 05/19/22 08:00 2 05/19/22 05:17 05/19/22 05:05/19/22 05:00 05/19/22 04:17 05/19/22 04:17 05/19/22 04:00 05/19/22 03:17 05/19/22 03:17 05/19/22 04:00 2 05/19/22 04:00 05/19/22 03:00 05/19/22 02:18 05/19/22 02:18 05/19/22 02:00 05/19/22 01:17 05/19/22 01:17 05/19/22 01:00 05/19/22 00:31 05/19/22 00:31 05/19/22 00:28 05/19/22 00:17 05/19/22 00:17 05/19/22 00:00 2 05/19/22 00:00 2 Laboratory Results Short CBC 05/19/22 Range/Units 05:02 WBC 9.13 (4.8-10.8) K/ul Hgb 7.7 L (12.0-16.0) g/dl Hct 25.0 L (34.1-44.9) % Plt Count 88 L (130-400) K/uL BMP 05/19/22 05:02 Sodium 132 L Potassium 3.4 L Chloride 99 Carbon Dioxide 24 BUN 29 H Creatinine 2.97 H D Glucose 259 H Calcium 7.8 L Cardiac Enzymes 05/19/22 Range/Units 05:02 Total Creatine Kinase 34 (26-192) U/L Liver Function 05/19/22 Range/Units 05:02 Total Bilirubin 1.0 (0.2-1.0) mg/dl AST 112 H (13-39) U/L ALT 36 (7-52) U/L Alkaline Phosphatase 558 H (34-104) U/L Albumin 2.1 L (3.4-5.0) gm/dl Medications Administered Current Inpatient Medications Atorvastatin Calcium (Atorvastatin 40 Mg Tab) 40 mg PO QAM ROSA M Stop: 06/14/22 08:59 Last Admin: 05/19/22 07:35 Dose: 40 mg Collagenase (Collagenase Oint 30 Gm Tube) 1 appln EXT DAILY ROSA M Stop: 06/14/22 08:59 Last Admin: 05/19/22 07:35 Dose: Not Given Dextrose (Dextrose 50% 50 Ml Syringe) 25 - 50 ml IV UD PRN; Protocol PRN Reason: Hypoglycemia Protocol Stop: 06/13/22 18:24 Last Admin: 05/16/22 11:55 Dose: 50 ml Furosemide (Furosemide 20 Mg Tab) 20 mg PO QAM ROSA M Stop: 06/18/22 08:59 Last Admin: 05/19/22 07:35 Dose: 20 mg Gabapentin (Gabapentin 100 Mg Cap) 100 mg PO QAM ROSA M Stop: 06/14/22 08:59 Last Admin: 05/19/22 07:36 Dose: 100 mg Gabapentin (Gabapentin 100 Mg Cap) 200 mg PO HS ROSA M Stop: 06/18/22 20:59 Glucagon (Glucagon For Inj 1 Mg Vial) 1 mg SQ UD PRN; Protocol PRN Reason: Hypoglycemia Protocol Stop: 06/13/22 18:24 Glucose (Glucose 40% Gel 15 Gm Tube) 15 - 30 gm PO UD PRN; Protocol PRN Reason: Hypoglycemia Protocol Stop: 06/13/22 18:24 Glucose (Glucose 10 Tab/Tube) 4 - 8 tab PO UD PRN; Protocol PRN Reason: Hypoglycemia Treatment Stop: 06/13/22 18:24 Heparin Sodium (Porcine) (Heparin Sod 5,000 Unit/0.5 Ml Vial) 5,000 units SQ Q12 ROSA M Stop: 06/13/22 20:59 Last Admin: 05/19/22 07:36 Dose: 5,000 units Hydromorphone HCl (Hydromorphone Inj 0.5 Mg/0.5 Ml Syr) 0.5 mg IV Q6H PRN PRN Reason: Breakthrough Pain Stop: 05/30/22 18:06 Hydroxyzine HCl (Hydroxyzine Hcl 25 Mg Tab) 25 mg PO Q6 PRN PRN Reason: Anxiety Stop: 06/17/22 18:44 Phenylephrine HCl 20 mg/ (Dextrose) 502 mls @ 0 mls/hr IV .Q0M ROSA M; Protocol Stop: 06/16/22 10:14 Last Titration: 05/18/22 19:30 Dose: 0 mcg/kg/min, 0 mls/hr Daptomycin 550 mg/ Syringe 11 mls @ 5.5 mls/min IV Q48H ROSA M; Protocol Stop: 06/29/22 13:59 Last Admin: 05/18/22 13:35 Dose: 5.5 mls/min Daptomycin 225 mg/ Syringe 4.5 mls @ 2.25 mls/min IV Q48H ROSA M; Protocol Stop: 06/30/22 13:59 Sodium Chloride (Nss 1000ml) 1,000 mls @ 0 mls/hr IV .Q0M PRN PRN Reason: For Hemodialysis Use ONLY Stop: 05/19/22 13:57 Hydrocortisone Sodium (Succinate 50 mg/ Syringe) 1 mls @ 4 mls/min IV Q12H ROSA M Stop: 06/18/22 13:59 Insulin Aspart (Insulin Aspart Per Unit) 0 units SC ACHS ROSA M; Protocol Stop: 05/19/22 23:59 Last Admin: 05/19/22 11:33 Dose: 2 units Insulin Aspart (Insulin Aspart Per Unit) 0 units SC Q4 ROSA M; Protocol Stop: 06/19/22 00:00 Insulin Glargine (Lantus Per Unit Charge) 0 units SQ HS [facility]; Protocol Stop: 06/16/22 20:59 Last Admin: 05/18/22 21:13 Dose: 5 units Latanoprost (Latanoprost 0.005% Op Soln 2.5 Ml Btl) 1 drops OP QPM [facility] Stop: 06/13/22 20:59 Last Admin: 05/18/22 21:06 Dose: 1 drops Levothyroxine Sodium (Levothyroxine Sodium 137 Mcg Tablet) 137 mcg PO DAILYBB [facility] Stop: 06/14/22 06:29 Last Admin: 05/15/22 05:47 Dose: 137 mcg Metoprolol Succinate (Metoprolol Succ 25mg Ext Rel Tab) 25 mg PO QAM [facility] Stop: 06/14/22 08:59 Last Admin: 05/17/22 08:40 Dose: Not Given Midodrine (Midodrine Hcl 10 Mg Tab) 10 mg PO TID@0800,1200,1700 [facility] Stop: 06/18/22 07:59 Last Admin: 05/19/22 11:33 Dose: 10 mg Miscellaneous (Carbohydrates For Hypoglycemia ) 15 - 30 gm PO UD PRN PRN Reason: Hypoglycemia Protocol Stop: 06/13/22 18:24 Miscellaneous Information (Pharmacy Glycemic Mgmt Consult) 1 each N/A UD PRN PRN Reason: Consult Stop: 06/13/22 18:24 Nitroglycerin (Nitroglycerin Sl 0.4 Mg/Tab Tab) 0.4 mg SL PRN PRN PRN Reason: Chest Pain Stop: 06/17/22 18:44 Ondansetron HCl (Ondansetron Inj 2 Mg/Ml 2 Ml Vial) 4 mg IV Q6H PRN PRN Reason: Nausea Stop: 06/13/22 18:19 Oxycodone HCl (Oxycodone Hcl Ir 5 Mg Tab (Immediate Release)) 2.5 mg PO DAILY PRN PRN Reason: Pain Stop: 05/31/22 03:56 Pantoprazole Sodium (Pantoprazole 40 Mg Tab) 40 mg PO DAILY [facility] Stop: 06/14/22 08:59 Last Admin: 05/19/22 07:36 Dose: 40 mg Ropinirole HCl (Ropinirole Hcl 0.25 Mg Tablet) 0.25 mg PO HS ROSA M Stop: 06/17/22 20:59 Last Admin: 05/18/22 21:07 Dose: 0.25 mg (1) Osteomyelitis Osteomyelitis location: unspecified site Osteomyelitis type: unspecified type Qualified Code(s): M86.9 - Osteomyelitis, unspecified
[2022-05-19] MEDS ORDERED: DAPTOmycin 225 MG in SYRINGE 0 ML IV SCH (14:00)
[2022-05-19 14:15] LABS: Hematocrit (blood only) 25.6 % (34.1-44.9); Hemoglobin 8.1 g/dl (12.0-16.0)
--- NOTE | 2022-05-19 19:12 | Anesthesiology Consultation ---
Date of Service May 19, 2022 The patient is high risk and will need to be evaluated by an anesthesiologist on the day of the procedure. Assessment & Plan Chart Review Chart Review: Pending: Refer to Additional Notes / Consult section (patient needs to be evaluated by anesthesiologist on day of surgery) and Patient NOT seen in Pre Admission Testing Consults Requested medicine and cardiac following History Surgery Operation Date: 05/18/22 07:15 Proposed Procedures p Debridement Sacral Ulcer Stage 4 - Shawn Baldwin MD, FACS Operation Date: 05/20/22 11:40 Proposed Procedures p Sacral Decubitus Debridement with Biopsy - Shawn Baldwin MD, FACS Height/Weight Height: 5 ft 3 in Weight: 88.1 kg Allergies Allergy/AdvReac Type Severity Reaction Status Date / Time cephalexin Allergy Unknown HIVES Verified 02/15/22 11:16 fluorescein Allergy Unknown EYE Verified 02/15/22 11:16 SWELLING AND THROAT SWELLING lisinopril Allergy Unknown "CHOKING" Verified 02/15/22 11:16 meperidine Allergy Unknown NAUSEA Verified 02/15/22 11:16 Penicillins Allergy Unknown Rash Verified 05/14/22 15:16 Medications Home Medications Medication Instructions Recorded Confirmed Last Taken Daptomycin Iv 750 mg IV .Q Tue05/14/22 05/14/22 Unknown atorvastatin 40 mg tablet 40 mg PO QAM 05/14/22 05/14/22 Unknown brimonidine 0.2 %-timolol 0.5 % 1 drp [facility] 05/14/22 05/14/22 Unknown eye drops daptomycin 500 mg intravenous 500 mg IV .ONCE A DAY ON 05/14/22 05/14/22 Unknown solution fluconazole 200 mg tablet 200 mg PO QAM 05/14/22 05/14/22 Unknown furosemide 20 mg tablet (Lasix) 20 mg PO QAM 05/14/22 05/14/22 Unknown gabapentin 300 mg capsule 300 mg PO HS 05/14/22 05/14/22 Unknown hydroxyzine HCl 25 mg tablet 25 mg PO Q6 PRN Anxiety 05/14/22 05/14/22 Unknown insulin aspart U-100 100 unit/mL 0 unit subcut .PM MEAL 05/14/22 05/14/22 Unknown (3 mL) subcutaneous pen (Novolog Flexpen U-100 Insulin aspart) insulin glargine 100 unit/mL (3 40 unit subcut QAM 05/14/22 05/14/22 Unknown mL) subcutaneous pen (Basaglar LolaPen U-100 Insulin) latanoprost 0.005 % eye drops 1 drp [facility] HS 05/14/22 05/14/22 Unknown levothyroxine 137 mcg tablet 137 mcg PO DAILY 05/14/22 05/14/22 Unknown loperamide 2 mg capsule 2 mg PO DIRECTED PRN Diarrhea 05/14/22 05/14/22 Unknown midodrine 5 mg tablet 5 mg PO TID 05/14/22 05/14/22 Unknown nitroglycerin 0.4 mg sublingual 0.4 mg sublingual DIRECTED PRN 05/14/22 05/14/22 Unknown tablet (Nitrostat) Chest Pain ondansetron HCl 4 mg tablet 4 mg PO DIRECTED PRN Nausea 05/14/22 05/14/22 Unknown oxycodone 5 mg/5 mL oral solution 2.5 mg PO DAILY PRN Severe Pain 05/14/22 05/14/22 Unknown (Scale Score 7-10) pantoprazole 40 mg tablet,delayed 40 mg PO DAILY 05/14/22 05/14/22 Unknown release ropinirole 0.25 mg tablet 0.25 mg PO HS 05/14/22 05/14/22 Unknown sodium hypochlorite 0.25 % solution 1 applic topical DAILY 05/14/22 05/14/22 Unknown triamcinolone acetonide 0.1 % 1 applic topical DIRECTED 05/14/22 05/14/22 Unknown topical cream Active Medications Generic Name Dose Route Start Last Admin Trade Name Tom PRN Reason Stop Dose Admin Atorvastatin Calcium 40 mg 05/15/22 09:00 05/19/22 07:35 Atorvastatin 40 Mg Tab PO 06/14/22 08:59 40 mg QAM ROSA M Administration Collagenase 1 appln 05/15/22 09:00 05/19/22 07:35 Collagenase Oint 30 Gm Tube EXT 06/14/22 08:59 Not Given DAILY RSOA M Dextrose 25 - 50 ml 05/14/22 18:25 05/16/22 11:55 Dextrose 50% 50 Ml Syringe IV 06/13/22 18:24 50 ml UD PRN Administration Hypoglycemia Protocol Protocol Furosemide 20 mg 05/19/22 09:00 07/27/22 07:35 Furosemide 20 Mg Tab PO 06/18/22 08:59 20 mg QAM ROSA M Administration Gabapentin 100 mg 05/15/22 09:00 05/19/22 07:36 Gabapentin 100 Mg Cap PO 06/14/22 08:59 100 mg QAM ROSA M Administration Heparin Sodium (Porcine) 5,000 units 05/14/22 21:00 05/19/22 07:36 Heparin Sod 5,000 Unit/0.5 Ml Vial SQ 06/13/22 20:59 5,000 units Q12 ROSA M Administration Phenylephrine HCl 20 mg/ 502 mls @ 0 mls/hr 05/17/22 10:15 05/18/22 19:30 Dextrose IV 06/16/22 10:14 0 mcg/kg/min .Q0M ROSA M 0 mls/hr Titration Protocol 0 MCG/KG/MIN Daptomycin 550 mg/ Syringe 11 mls @ 5.5 mls/min 05/18/22 14:00 05/18/22 13:35 IV 06/29/22 13:59 5.5 mls/min Q48H ROSA M Administration Protocol Daptomycin 225 mg/ Syringe 4.5 mls @ 2.25 mls/min 05/19/22 14:00 05/19/22 13:48 IV 06/30/22 13:59 2.25 mls/min Q48H ROSA M Administration Protocol Hydrocortisone Sodium 1 mls @ 4 mls/min 05/19/22 14:00 05/19/22 13:48 Succinate 50 mg/ Syringe IV 06/18/22 13:59 4 mls/min Q12H ROSA M Administration Insulin Aspart 0 units 05/18/22 11:30 05/19/22 16:33 Insulin Aspart Per Unit SC 05/19/22 23:59 7 units ACHS ROSA M Administration Protocol Insulin Glargine 0 units 05/17/22 21:00 05/18/22 21:13 Lantus Per Unit Charge SQ 06/16/22 20:59 5 units HS ROSA M Administration Protocol Latanoprost 1 drops 05/14/22 21:00 05/18/22 21:06 Latanoprost 0.005% Op Soln 2.5 Ml Btl OP 06/13/22 20:59 1 drops QPM ROSA M Administration Levothyroxine Sodium 137 mcg 05/15/22 06:30 05/15/22 05:47 Levothyroxine Sodium 137 Mcg Tablet PO 06/14/22 06:29 137 mcg DAILYBB ROSA M Administration Metoprolol Succinate 25 mg 05/15/22 09:00 05/17/22 08:40 Metoprolol Succ 25mg Ext Rel Tab PO 06/14/22 08:59 Not Given QAM ROSA M Midodrine 10 mg 05/19/22 08:00 05/19/22 16:34 Midodrine Hcl 10 Mg Tab PO 06/18/22 07:59 10 mg TID@0800,1200,1700 ROSA M Administration Pantoprazole Sodium 40 mg 05/15/22 09:00 05/19/22 07:36 Pantoprazole 40 Mg Tab PO 06/14/22 08:59 40 mg DAILY ROSA M Administration Ropinirole HCl 0.25 mg 05/18/22 21:00 05/18/22 21:07 Ropinirole Hcl 0.25 Mg Tablet PO 06/17/22 20:59 0.25 mg HS ROSA M Administration Past Medical History Medical History (Updated 05/19/22 @ 19:11 by Alexandro Mims MD) Accelerating angina Anemia Anemia due to stage 5 chronic kidney disease treated with erythropoietin Atherosclerosis of [place] arteries of extremities with rest pain, left leg Cancer of anorectal junction Cat bite of left forearm Cervical cancer Chronic lower GI bleeding Chronic radiation dermatitis Chronic stable angina CKD (chronic kidney disease) stage 5, GFR less than 15 ml/min CKD, patient preferred treatment modality in-center hemodialysis Closed fracture of phalanx of left fifth toe Colonic polyp Coronary artery disease 50% lad stenosis, an 80% obtuse marginal stenosis, and a 50% PDA stenosis. It should be noted her PDA arose from her left circumflex. Demand ischemia of myocardium DM type 2 with diabetic peripheral neuropathy Encounter for colorectal cancer screening 02/10/07 ESRD (end stage renal disease) on dialysis Heart failure with preserved ejection fraction, borderline, class II History of treatment of incomplete miscarriage x3 History of hyperbaric oxygen therapy 07/2011, 11/2011, 60 treatments. History of rectal or anal cancer HTN (hypertension) Hx of barium enema Hx of mammogram Hyperlipidemia Hyperparathyroidism Hyponatremia Hypothyroidism Injection of surface of both eyes Injection of eye drug, Lucentis 0.3mg by Dr. Taveras Iron deficiency anemia due to chronic blood loss Major depressive disorder Melanoma of back Myocardial infarction Non-compliance Other pancytopenia PAD (peripheral artery disease) Proliferative diabetic retinopathy of both eyes without macular edema associated with diabetes mellitus due to underlying condition Radiation proctitis Retinal edema Retinal lesion S/P arteriogram of extremity Thrombocytopenia Type 2 diabetes mellitus Uncontrolled type 2 diabetes mellitus with retinopathy of left eye, with long- term current use of insulin Uterine cancer Vitreous hemorrhage of right eye Past Surgical History Surgical History H/O cataract removal with insertion of prosthetic lens H/O colonoscopy adhesions and radiation colitis precluded advancing scope through the sigmoid. Exam discontinued. H/O eye surgery partial removal of eye fluid, bilateral H/O laparoscopy appendectomy History of breast surgery left breast, 1982 History of insertion of tunneled central venous catheter (CVC) with port History of revascularization procedure of lower extremity Hx of angioplasty Hx of biopsy benign right breast biopsy about 20 years ago. Hx of colonoscopy 08/31/2017, multiple colonic angioectasias from prior radiation/narrowed and scarred left colon from multiple prior surgeries/colonoscopy flexible prox imal diagnositic performed by Chandler Gill. S/P laser trabeculoplasty of eye S/P tonsillectomy Status post total abdominal hysterectomy Social History Smoking Status: Never smoker Hx Alcohol Use: No Hx Substance Use: No Physical Exam Vital Signs Last Vital Signs Temp 36.5 C 05/19/22 13:10 Pulse 102 H 05/19/22 18:00 Resp 14 05/19/22 18:00 BP 132/69 05/19/22 17:56 Pulse Ox 96 05/19/22 18:00 O2 Del Method 05/19/22 16:00 O2 Flow Rate 2 05/19/22 16:00 FiO2 40 05/17/22 16:00 Testing Laboratory Results 05/19/22 13:55 05/19/22 05:02 PT 18.2 Seconds (9.0-12.0) H 05/15/22 05:59 INR 1.8 (0.9-1.1) H 05/15/22 05:59 APTT 44.6 Seconds (21.0-31.0) H 05/14/22 14:25 Hemoglobin A1c 5.9 % (4.5-5.6) H 05/15/22 05:59 05/17/22 09:35 Aerobic Blood Culture - Preliminary Blood No growth in Aerobic bottle after 48 hours. Anaerobic Blood Culture - Preliminary No growth in Anaerobic bottle after 48 hours. 05/17/22 09:35 Aerobic Blood Culture - Preliminary Blood No growth in Aerobic bottle after 48 hours. Anaerobic Blood Culture - Preliminary No growth in Anaerobic bottle after 48 hours. 05/14/22 16:03 Aerobic Blood Culture - Preliminary Blood No growth in Aerobic bottle after 48 hours. Anaerobic Blood Culture - Final 05/14/22 16:04 Aerobic Blood Culture - Preliminary Blood No growth in Aerobic bottle after 48 hours. Anaerobic Blood Culture - Final 05/19/22 05/19/22 05/19/22 16:23 11:26 07:29 POC Glucose 188 H 162 H 270 H Electrocardiogram Date: 04/18/22 CTATED BY:Woo Álvarez MD Test Reason : Blood Pressure : / mmHG Vent. Rate : 101 BPM Atrial Rate : 101 BPM P-R Int : 162 ms QRS Dur : 106 ms QT Int : 358 ms P-R-T Axes : 060 073 263 degrees QTc Int : 464 ms Sinus tachycardia with occasional Premature ventricular complexes Low voltage QRS Cannot rule out Anterior infarct , age undetermined Abnormal ECG When compared with ECG of 17-MAY-2022 08:12, Premature ventricular complexes are now Present Left bundle branch block is no longer Present Minimal criteria for Anterior infarct are now Present Confirmed by Woo Álvarez ([id number]) on 05/19/2022 11:34:08 AM Referred By: REFERRED SELF Confirmed By:Woo Álvarez Signed By: 05/19/22 1134 Dictated:05/18/22 [id number] Chest X-Ray Date: 05/18/22 XR chest 1V portable CLINICAL HISTORY: f/u COMPARISON STUDY: Chest radiograph May 14, 2022. FINDINGS: Dual lumen right internal jugular [id number] remains in place. There is no pneumothorax. Small to moderate bilateral pleural effusions are again noted with bibasilar opacities. Pulmonary edema has slightly improved. Cardiomediastinal silhouette is stable. IMPRESSION: 1. Persistent, but slightly improved, pulmonary edema. 2. Small to moderate bilateral pleural effusions with associated bibasilar opacities. ACT 112: Negative or not required by law. Electronically signed by: Chuy Ronquillo M.D. 05/18/2022 8:59 AM Dictated:05/18/22 [id number] Transcribed: 05/18/22 0857 Echocardiogram Date: 05/17/22 EF: 35-40 LV Function: dysfunctional RWMA: + hypokinetic (global) Other Findings: + diastolic dysfunction (grade 2) mild TR, atrial septal aneurysm
[2022-05-19] MEDS: LANTUS PER UNIT CHARGE SQ SCH (21:31)
[2022-05-19] MEDS: rOPINIRole HCL 0.25 MG TABLET PO SCH (21:32)
[2022-05-19] MEDS: LATANOPROST 0.005% OP SOLN 2.5 ML BTL OP SCH (21:32)
[2022-05-20] MEDS: INSULIN ASPART PER UNIT SC SCH ×7 (00:02→23:58)
[2022-05-20] MEDS: HYDROCORTISONE SOD 50 MG in SYRINGE 0 ML IV SCH ×2 (01:38→14:26)
[2022-05-20] MEDS: LEVOTHYROXINE SODIUM 137 MCG TABLET PO SCH (06:00)
[2022-05-20 06:04] LABS: Basophils # (auto) 0.01 K/uL (0-0.2); Basophils % (auto) 0.1 %; Hematocrit (blood only) 25.4 % (34.1-44.9); Hemoglobin 7.7 g/dl (12.0-16.0); Immature Granulocytes # (auto) 0.05 K/uL (0.00-0.02); Immature Granulocytes % (auto) 0.5 %; Lymphocytes # (auto) 0.65 K/uL (1.2-3.4); Lymphocytes % (auto) 6.2 %; Mean Corpuscular Hemoglobin 30.9 pg (25.0-34.0); Mean Corpuscular Hgb Conc 30.3 g/dL (32.0-36.0); Mean Platelet Volume 11.4 fL (9.4-12.3); Monocytes # (auto) 0.37 K/uL (0.24-0.82); Monocytes % (auto) 3.5 %; Neutrophils % (auto) 89.7 %; Nucleated RBC # (auto) 0.06 K/uL (0-0); Nucleated RBC % (auto) 0.6 %; Platelet Count 115 K/uL (130-400); RDW Coefficient of Variation 23.1 % (11.5-14.5); RDW Standard Deviation 83.3 fL (36.4-46.3); Red Blood Count 2.49 M/uL (3.93-5.22); White Blood Count 10.48 K/ul (4.8-10.8)
[2022-05-20] MEDS ORDERED: SUGAMMADEX SODIUM 200 MG/2 ML VIAL IV ONE (06:20)
[2022-05-20 06:25] LABS: Prothrombin Time 20.7 Seconds (9.0-12.0)
[2022-05-20 06:32] LABS: Anisocytosis Present; Macrocytosis Present; Polychromasia 1+; Target Cells 2+
[2022-05-20 06:36] LABS: BUN Creatinine Ratio 12.4 (10-20); Creatinine Clr Calc Pharmacy 23.1 ml/min; Est GFR (African American) 22.4 ml/min; Est GFR (Non-African American) 19.3 ml/min; Phosphorus 2.2 mg/dl (2.5-4.9); Potassium 3.1 mmol/L (3.5-5.1); Troponin I High Sensitivity 576.8 pg/ml (0-14)
[2022-05-20] MEDS ORDERED: PHENYLEPHRINE HCL 20 MG in SODIUM CHLORIDE 0.9% 500 ML IV SCH (07:30)
--- NOTE | 2022-05-20 07:59 | Surgery Progress Note ---
Date of Service May 20, 2022 Assessment & Plan Admission and Anticipated Discharge Date Admission Date: May 14, 2022 Subjective Patient off vasopressors been dialyzed yesterday rn managed care feels that we proce ed for surgery today I called her Paul at 7:56 this morning at [id number] [phone] there was no answer left word on the recorder to give me a call on my phone so we can discuss his 's condition and plans for surgery today nurses reported there was a question he did not want anything done and he wanted to talk to the surgeon Call the patient's again at [phone] at 10:30 discussed the situation regarding Leny his and he said that Leny does not want surgery and he does not want her to have surgery we will discuss with the rn managed care regarding that decision Results & Data ([facility]) Vital Signs (Past 12 Hours) Vital Signs Pulse Resp BP Pulse Ox O2 Del Method O2 Flow Rate 05/20/22 07:00 104 H 11 L 95 05/20/22 06:56 119/58 L 05/20/22 06:56 107 H 13 94 05/20/22 06:00 103 H 17 93 05/20/22 05:00 108 H 19 93 05/20/22 04:56 114/74 05/20/22 04:56 109 H 22 96 05/20/22 04:00 105 H 15 100 05/20/22 03:00 103 H 12 95 05/20/22 02:05 101 H 11 L 93 05/20/22 01:56 125/51 L 05/20/22 01:56 108 H 14 94 05/20/22 01:00 101 H 15 93 05/20/22 00:56 101/55 L 05/20/22 00:56 104 H 13 94 05/20/22 00:00 106 H 14 94 05/19/22 23:56 106/60 05/19/22 23:56 110 H 15 94 05/20/22 04:00 95 Nasal Cannula 2 05/20/22 00:00 Nasal Cannula 2 05/19/22 23:00 99 H 12 94 05/19/22 22:56 116/60 05/19/22 22:56 97 H 12 95 05/19/22 22:00 100 H 12 97 05/19/22 21:56 102 H 12 97 05/19/22 21:56 97/50 L 05/19/22 21:00 80 8 L 100 05/19/22 20:56 105/48 L 05/19/22 20:56 81 7 L 100 05/19/22 20:00 91 H 3 L 95 05/19/22 20:00 20 97 Nasal Cannula 2 PG Care Time/CCT Total # of Minutes Spent Total Time Spent with Patient: Total time spent is greater than 50% in coordination of care (as documented) at patient's floor/unit and/or counseling patient: Coding Level of Care Code 31443 Subseq Hosp Care Lvl 2
[2022-05-20] MEDS ORDERED: LANTUS PER UNIT CHARGE SQ ONE (08:00)
[2022-05-20] MEDS: ATORVASTATIN 40 MG TAB PO SCH (08:01)
[2022-05-20] MEDS: MIDODRINE HCL 10 MG TAB PO SCH ×3 (08:01→17:17)
[2022-05-20] MEDS: FUROSEMIDE 20 MG TAB PO SCH (08:02)
[2022-05-20] MEDS: PANTOprazole 40 MG TAB PO SCH (08:03)
[2022-05-20] MEDS: GABAPENTIN 100 MG CAP PO SCH ×2 (08:03→20:56)
[2022-05-20] MEDS ORDERED: POTASSIUM PHOS 3 MMOL/1 ML INFUSION IV STA (08:10)
--- NOTE | 2022-05-20 08:33 | Critical Care Progress Note ---
Date of Service May 20, 2022 Assessment & Plan (1) Sepsis: Plan: Reason Critically Ill: 66-year-old female here with a PMHx significant for ESRD on thrice weekly dialysis, CAD, PAD, and rectal cancer (f/p chemoradiation approximately 20 years ago), and DM2, who presented with sepsis secondary to sacral ulcer/osteomyelitis (still awaiting surgical debridement) and was admitted for vasopressor support. Now off vasopressor support since yesterday 05/18, and currently awaiting surgical debridement of sacral ulcer/osteomyelitis. Neuro - [facility] ICU: [NEGATIVE] Sedation: None Analgesia: IV Toradol as needed, IV Dilaudid as needed. Gabapentin 100 mg every morning, 200 mg at bedtime. Cardiac -history of CAD, PAD * CAD: Patient has past medical history of DE with partial LAD obstruction treated medically (due to increased bleeding risk). Continue atorvastatin 40 mg qAM. * HFpEF: Midodrine 10 mg 3 times daily. * Hypotension: MAP remains above goal. On no pressors. * Elevated troponin: Likely secondary to ischemic process induced by sepsis, chronic CAD. Echo on 05/17- EF 35%, moderate global hypokinesis of the left ventricle, as well as grade 2 diastolic dysfunction. New left bundle branch block on EKG. Patient not a candidate for heparin drip or PCI due to increased bleeding risk (cardiology following). Holding metoprolol, initiating DELPHINE inhibitor therapy now that hypotension is resolved. Respiratory - * Tachypnea: Patient continues to saturate well on 2L NC (no home O2 requirement). Consider weaning as tolerated. GI - Surgery tentatively scheduled for 11:40 AM today. Cardiorenal diet. N.p.o. since midnight. RENAL/LYTES - * Hyponatremia, hyperkalemia, LUDIN. Electrolyte derangement likely secondary to ESRD-associated volume overload. * I/O: +5.2 L since admission. 4L removed on 05/19 via dialysis. * No dialysis today in anticipation of surgical debridement. Per nephro, will consider if surgery postponed. 3 L removed 05/17, 3.5 L removed 05/18, 4L 05/19. * Repleted Mg and phos. * Elevated Cr: Cr of 2.49, improved from 2.96 on 05/19. Continue trending AM CMP. - [No concerns at this time.] ENDO - * Hydrocortisone IV further weaned to qAM from q12h. * IV levothyroxine switched to po levothyroxine on 05/19. HEME - [Stable H&H.] * Chronic anemia secondary to ESRD on dialysis. Currently on erythropoietin. ID - * Osteomyelitis: Sacral decubitus ulcer stage IV. Continue Daptomycin. * Leukocytosis: Resolved, WBC-10.48. Repeat blood cultures negative x48 hours. LINES/IV ACCESS - PIVs intact, left-sided permacath DVT PROPHYLAXIS - IPC Thank you for allowing us to be part of this patient's care. Please refer to Dr Portia Quintero's documentation for any further recommendations. (2) PAD (peripheral artery disease): (3) Heart failure with preserved ejection fraction, borderline, class II: (4) Coronary artery disease: (5) Ulcer of sacral region, stage 4: (6) Osteomyelitis: (7) End-stage renal disease (ESRD): Admission and Anticipated Discharge Date Admission Date: May 14, 2022 Supervising Physician Co-Signing Physician Notes Dr. Brock was the resident-physician during care of patient. I separately evaluated patient for man portions of the history and the exam. I was present during the critical portion of medical decision making, and I discussed the case with the resident. I generally agree with the findings and plan except for any additions/exceptions noted. Patient seen and examined at bedside. No acute distress, no adverse events overnight. Patient with liposomal at the time of examination today. Her map has been in the 70s. She has been off vasopressor support for more than 24 hours Denies any nausea or vomiting. No headache, fair appetite. Constitutional: No acute distress HEENT: EOMI, PERRLA Respiratory system: Decreased air entry bilaterally, no wheeze, no rhonchi, positive crackles bilaterally CVS: S1-S2 positive, no murmurs or gallops, distant heart sounds Abdomen: Soft, nontender, nondistended, positive bowel sounds x4, positive colostomy Extremities: +2 pulses bilaterally radialis/ dorsalis pedis, no cyanosis, +2 edema bilateral lower extremity Neuro: Awake alert oriented x3, somnolent Psych: Normal mood and affect G/U: No Santiago --Prophylaxis VTE: Heparin GI: Pantoprazole Lines: Peripheral, right-sided permacath Diet: Cardiorenal Plan: In/out: -3.5 L, 4 L was removed from the dialysis yesterday Decrease hydrocortisone to 50 Mg on a daily basis. Titrated off in the next couple of days Continue with midodrine 10 mg 3 times daily Patient was supposed to have debridement surgery for the sacral wound today but patient as well as patient's changed her mind and would not like to have any surgery done. Patient is hemodynamically stable to be downgraded to medical floor. Supposed to have dialysis later today. Can be downgraded after dialysis. BiPAP nightly and as needed shortness of breath especially given the somnolence. Please note the above document was generated using voice recognition software. It may contain grammatical, syntax or spelling errors.Any formal questions or concerns about the content, text or information contained within the body of this dictation should be directly addressed to the provider for clarification. Subjective No acute events overnight. She had 4L of fluid removed via dialysis yesterday, without requiring pressor support (per nephrology). Pt. is asleep this morning but wakes up to voice. She is alert and oriented x3. She reports some abdominal pain. Otherwise she denies chest pain, headache, fever, or chills. Per nursing, surgery has yet to make a decision on whether she'll undergo debridement surgery today, tentatively scheduled for 11:40 AM. Review of Systems Review of Systems: All systems reviewed & are unremarkable except as noted in HPI & below Physical Exam Physical Exam: General: Well-appearing, alert, interactive, and in no acute distress. HEENT: Normocephalic, atraumatic. EOM intact. Good conjugate gaze. Nares patent. Moist mucosal membranes. Neck: Supple. No lymphadenopathy. Normal ROM. CV: Mildly tachycardic. Normal S1 and S2. No murmurs gallops or rubs. Respiratory: Crackles heard on auscultation bilaterally. No rhonchi, or wheezes heard. Abdomen: Soft, nondistended abdomen. No bruits heard on auscultation. No tenderness to deep palpation. Extremities: 2+ dp equal bilaterally. 2+ pitting lower extremity edema bilaterally. Mild erythema of the right mid-murphy with ill-defined borders. Neuro: Alert and oriented x3. Results & Data Results & Data ([facility]) Vital Signs (Past 12 Hours) Vital Signs Pulse Resp BP Pulse Ox O2 Del Method O2 Flow Rate 05/20/22 07:00 104 H 11 L 95 05/20/22 06:56 119/58 L 05/20/22 06:56 107 H 13 94 05/20/22 06:00 103 H 17 93 05/20/22 05:00 108 H 19 93 05/20/22 04:56 114/74 05/20/22 04:56 109 H 22 96 05/20/22 04:00 105 H 15 100 05/20/22 03:00 103 H 12 95 05/20/22 02:05 101 H 11 L 93 05/20/22 01:56 125/51 L 05/20/22 01:56 108 H 14 94 05/20/22 01:00 101 H 15 93 05/20/22 00:56 101/55 L 05/20/22 00:56 104 H 13 94 05/20/22 00:00 106 H 14 94 05/19/22 23:56 106/60 05/19/22 23:56 110 H 15 94 05/20/22 04:00 95 Nasal Cannula 2 05/20/22 00:00 Nasal Cannula 2 05/19/22 23:00 99 H 12 94 05/19/22 22:56 116/60 05/19/22 22:56 97 H 12 95 05/19/22 22:00 100 H 12 97 05/19/22 21:56 102 H 12 97 05/19/22 21:56 97/50 L 05/19/22 21:00 80 8 L 100 05/19/22 20:56 105/48 L 05/19/22 20:56 81 7 L 100 Resident Activity Tracking Resident Involvement: Resident Care Provided Care Provided: Adult [facility] Medicine (1) Osteomyelitis Osteomyelitis location: unspecified site Osteomyelitis type: unspecified type Qualified Code(s): M86.9 - Osteomyelitis, unspecified
[2022-05-20] MEDS ORDERED: POTASSIUM PHOSPHATE 15 MMOL in SODIUM CHLORIDE 0.9% 250 ML IV ONE (08:45)
[2022-05-20 09:35] LABS: Fibrinogen 429 mg/dl (184-400)
[2022-05-20] MEDS ORDERED: PHYTONADIONE 5 MG in DEXTROSE 5% 50 ML IV ONE (09:45)
--- NOTE | 2022-05-20 10:28 | Nephrology Progress Note ---
Date of Service May 20, 2022 Assessment & Plan (1) End-stage renal disease (ESRD): Plan: ESRD MWF at [facility] via dialysis catheter Last dialysed on 05/19 w/ 4L UF (no pressor); on 05/17 had 3L UF w/ pressor K normalized; ongoing marked volume overload new LBBB on ECG, tachypneic 05/17 > moved to ICU and w/ pressor support - cardiology following; not a cardiac cath candidate ->>>>dialysis today if no OR and likely tomorrow + / - w/ pressor support as needed to optimize volume status; follow daily for treatment tolerance/need >> volume status improving and reasonable at this point to plan OR todaty - if she goes to OR no HD; if not and if I have paint trimmer pipe bowls staff, will dialyze today ->>>dialysis catheter running reversed today; catheter malfunction may require exchange if function worsens -max dose epo w/ tx >>>will ensure pharmacy dosing daptomycin post HD >agree w/ repleting K gently; have been running her on 4 K baths so drop in K not from HD; no clear cause (2) Osteomyelitis: Plan: - awaiting surgical debridement > surgery evaluating daily, tentative for 05/20 - Continue on the MWF or/ and post HD Daptomycin Admission and Anticipated Discharge Date Admission Date: May 14, 2022 Subjective no acute interval clinical events. pt and family now reconsidering/hesitant re surgical debridement; teams aware and reviewing w/ her. no worse sob, no n/v, no pressors since 05/18 1930. colostomy OP stable; NPO for OR currently Review of Systems Review of Systems: All systems reviewed & are unremarkable except as noted in Subjective Physical Exam Constitutional: well developed, well nourished, + ill appearing, + obese, + frail appearing and cooperative; no acute distress lying flat on 2L w/o distress Eyes: EOM intact bilaterally ENMT: Ears: no external ear abnormality Nose: no external nose abnormality Mouth: + dry oral mucous membranes Neck: no nuchal rigidity Respiratory: normal respiratory effort (on 2L 02nc) and able to speak in complete sentences; no labored breathing, does not use accessory muscles, no cough and not tachypneic Auscultation: + diminished lung sounds Cardiovascular: Rate/Rhythm: regular rate, regular rhythm and + tachycardic Extremities: + edema (2-3+ BLE) Gastrointestinal (Abdomen): Inspection/Auscultation: abdomen normal to inspection (w/ colostomy present) and normal bowel sounds Percussion/Palpation: abdomen soft; abdomen nontender Musculoskeletal: Extremities: + abnormal strength Skin: no rashes, warm and dry Psychiatric: Orientation: oriented to person, oriented to place and cooperative Affect: euthymic affect and + anxious affect Results & Data ([facility]) Vital Signs (Past 12 Hours) Vital Signs Temp Pulse Resp BP Pulse Ox O2 Del Method O2 Flow Rate 05/20/22 10:00 96 H 12 98 05/20/22 09:56 144/61 H 05/20/22 09:56 101 H 10 L 98 05/20/22 09:00 100 H 10 L 96 05/20/22 08:56 122/59 L 05/20/22 08:56 97 H 11 L 96 05/20/22 08:00 96 H 12 96 05/20/22 07:56 115/51 L 05/20/22 07:56 96 H 12 96 05/20/22 07:43 98/62 L 05/20/22 07:43 110 H 18 95 05/20/22 09:00 Nasal Cannula 2 05/20/22 09:00 36.8 C 05/20/22 08:00 23 97 Nasal Cannula 2 05/20/22 09:52 96 H 23 97 05/20/22 07:00 104 H 11 L 95 05/20/22 06:56 119/58 L 05/20/22 06:56 107 H 13 94 05/20/22 06:00 103 H 17 93 05/20/22 05:00 108 H 19 93 05/20/22 04:56 114/74 05/20/22 04:56 109 H 22 96 05/20/22 04:00 105 H 15 100 05/20/22 03:00 103 H 12 95 05/20/22 02:05 101 H 11 L 93 05/20/22 01:56 125/51 L 05/20/22 01:56 108 H 14 94 05/20/22 01:00 101 H 15 93 05/20/22 00:56 101/55 L 05/20/22 00:56 104 H 13 94 05/20/22 00:00 106 H 14 94 05/19/22 23:56 106/60 05/19/22 23:56 110 H 15 94 05/20/22 04:00 95 Nasal Cannula 2 05/20/22 00:00 Nasal Cannula 2 05/19/22 23:00 99 H 12 94 05/19/22 22:56 116/60 05/19/22 22:56 97 H 12 95 FiO2 05/20/22 10:00 05/20/22 09:56 05/20/22 09:56 05/20/22 09:00 05/20/22 08:56 05/20/22 08:56 05/20/22 08:00 05/20/22 07:56 05/20/22 07:56 05/20/22 07:43 05/20/22 07:43 05/20/22 09:00 05/20/22 09:00 05/20/22 08:00 05/20/22 09:52 40 05/20/22 07:00 05/20/22 06:56 05/20/22 06:56 05/20/22 06:00 05/20/22 05:00 05/20/22 04:56 05/20/22 04:56 05/20/22 04:00 05/20/22 03:00 05/20/22 02:05 05/20/22 01:56 05/20/22 01:56 05/20/22 01:00 05/20/22 00:56 05/20/22 00:56 05/20/22 00:00 05/19/22 23:56 05/19/22 23:56 05/20/22 04:00 05/20/22 00:00 05/19/22 23:00 05/19/22 22:56 05/19/22 22:56 Laboratory Results 05/20/22 05:35 05/20/22 05:35 (1) Osteomyelitis Osteomyelitis location: unspecified site Osteomyelitis type: unspecified type Qualified Code(s): M86.9 - Osteomyelitis, unspecified
--- NOTE | 2022-05-20 10:53 | Pharmacy Report ---
Pharmacy Glycemic Short Note 2 - Date of Service May 20, 2022 - Glycemic Short BSG Results (Last 24 hours): 05/19/22 05/19/22 05/19/22 11:26 16:23 21:06 Glucose POC Glucose 162 H 188 H 260 H 05/19/22 05/20/22 05/20/22 23:53 04:12 05:35 Glucose 194 H POC Glucose 298 H 193 H 05/20/22 07:43 Glucose POC Glucose 179 H OUTPATIENT ANTIDIABETIC REGIMEN: * Basaglar 42 units HS - reports following [facility]TM clinic ASSESSMENT: 05/20 * BSGs somewhat erratic over last 24 hrs, but explainable. BSGs trended toward goal in the AM following receipt of larger basal insulin dose however quickly climbed in the afternoon following resumption of phenylephrine drip mixed in D5W. Phenylephrine continued thru ~1900 . BSGs then fell overnight following receipt of basal and correctional insulin. * Pt NPO today with plans for OR today. HD likely to be held today if pt does go to the OR. * Will give smaller dose of basal this AM due to NPO status. * Will mix phenylephrine in NSS if needed in the future. 05/19 * BSGs remain elevated despite receipt of 38 units insulin yesterday * Again BSG pattern suggests basal insulin deficiency. Will continue to uptitrate basal doses, cautiously given hypoglycemic event earlier this admission and upcoming NPO status. * Surgery planned for tomorrow. NPO planned after MN. * IV levothyroxine converted to PO in home dosage. IV steroid dose again tapered down. Expect improved insulin sensitivity with these changes. * HD again planned today. 05/18 * BSGs have been running in the 180-230 range over last 24 hrs. * Fasting BSG 186 this AM with 5 units basal on board and after receipt of 12 units correctional insulin overnight. Patient is no longer NPO and surgery no longer planned today. Will give additional basal with lunch and continue to dose per scale at bedtime. * Correctional insulin doses do appear to be bringing down the BSG slightly, therefore will not adjust at this time as primary deficiency appears to be basal insulin. * Patient continues on IV steroids however dose being tapered today. Phenylephrine continues however dose has been titrated down. HD is planned daily at this time, possibly thru Tuesday. All of these factors will likely lead to increased insulin sensitivity. * Date of surgery uncertain at this time. No plans for NPO at this time. 05/17 * Patient transferred to the ICU this AM for pressure support - phenylephrine initiated as well as HD. Patient remains on hydrocortisone. * Hyperkalemia prior to HD today - D50 and insulin admin contributing to BSG > 300 mg/dL, however, BSG overnight was also elevated to 221 mg/dL. * Goal BSG range for ICU patient 140-180 mg/dL. However, as hesitant to provide basal insulin at this time due to severe hypoglycemia on 05/16, will instead utilize lower goal BSG for Novolog and therefore provide some "basal" insulin if BSG's remain above 140 mg/dL * Will add CHO ratio for now due to increased BSG and patient ordered diet. Scheduled for NPO today at midnight in anticipation of possible surgical intervention tomorrow PLAN FOR INPATIENT GLYCEMIC CONTROL: * Hold outpatient oral diabetes medications * Basal insulin * Lantus - 5 units x 1 this AM. Will give additional 5 units tonight if BSG 140 or greater * Bolus insulin * NovoLog per scale Q 4 hrs due to surgical stressors * Goal Range: Low 110 mg/dL - High 140 mg/dL * Correction Factor: 20 mg/dL/unit * Nutritional / Prandial insulin per carb ratio of 1 unit per 8 grams CHO consumed
[2022-05-20] MEDS: DAPTOmycin 550 MG in SYRINGE 0 ML IV SCH (12:01)
--- NOTE | 2022-05-20 12:04 | Cardiology Progress Note ---
Date of Service May 20, 2022 Assessment & Plan (1) Preop cardiovascular exam: (2) Sepsis: (3) Thrombocytopenia: (4) Anemia: (5) Ulcer of sacral region, stage 4: (6) Osteomyelitis: (7) Decubitus ulcer of sacral area: (8) Acute hyponatremia: (9) End-stage renal disease (ESRD): (10) Chronic radiation proctitis: (11) Radiation necrosis of skin and subcutaneous: (12) Uterine cancer: (13) Breast CA: (14) Cancer of anorectum: (15) Diabetes: (16) Coronary artery disease: (17) Heart failure with preserved ejection fraction, borderline, class II: (18) PAD (peripheral artery disease): Plan Given her multiple comorbidities including her ischemic cardiomyopathy the patie nt would obviously be a very high risk for any adverse perioperative cardiovascular event. I would place her risk at or greater than 10% Unfortunately, no further cardiac testing or intervention would further lower this risk. Should the patient and or her family understand and accepting of this risk then I would see no need to delay from a cardiac standpoint Patient's now reportedly refusing surgical intervention It would stand to reason that without surgical debridement any further medical care would ultimately be futile If surgery is not permitted then recommend hospice care Admission and Anticipated Discharge Date Admission Date: May 14, 2022 Subjective Patient seen and examined, chart reviewed. States that she feels okay today. Tired with continued pain at the ulceration site. Denies chest pain, shortness of breath or palpitations Physical Exam Physical Exam: General: AAO x 3. No acute distress. HEENT: Normocephalic, atraumatic. Pupils equal, round and reactive to light and accommodation. Extraocular muscles are intact. Anicteric sclera. Moist mucous membranes. Neck: No JVD. No bruit. Cardiovascular: Regular. Positive S-4. Normal S-1 and S-2. No S-3. No murmurs or rubs. Pulmonary: Clear to auscultation B/L. No rales, rhonchi or wheezing Abdomen: Bowel sounds x 4, soft. No rebound, guarding or tenderness. No organomegaly. Extremities: No clubbing, cyanosis or edema. +2 pedal pulses bilaterally. Skin: Warm and dry. Results & Data ([facility]) Vital Signs (Past 12 Hours) Vital Signs Temp Pulse Resp BP Pulse Ox O2 Del Method O2 Flow Rate 05/20/22 10:00 96 H 12 98 05/20/22 09:56 144/61 H 05/20/22 09:56 101 H 10 L 98 05/20/22 09:00 100 H 10 L 96 05/20/22 08:56 122/59 L 05/20/22 08:56 97 H 11 L 96 05/20/22 08:00 96 H 12 96 05/20/22 07:56 115/51 L 05/20/22 07:56 96 H 12 96 05/20/22 07:43 98/62 L 05/20/22 07:43 110 H 18 95 05/20/22 09:00 Nasal Cannula 2 05/20/22 09:00 36.8 C 05/20/22 08:00 23 97 Nasal Cannula 2 05/20/22 09:52 96 H 23 97 05/20/22 07:00 104 H 11 L 95 05/20/22 06:56 119/58 L 05/20/22 06:56 107 H 13 94 05/20/22 06:00 103 H 17 93 05/20/22 05:00 108 H 19 93 05/20/22 04:56 114/74 05/20/22 04:56 109 H 22 96 05/20/22 04:00 105 H 15 100 05/20/22 03:00 103 H 12 95 05/20/22 02:05 101 H 11 L 93 05/20/22 01:56 125/51 L 05/20/22 01:56 108 H 14 94 05/20/22 01:00 101 H 15 93 05/20/22 00:56 101/55 L 05/20/22 00:56 104 H 13 94 05/20/22 04:00 95 Nasal Cannula 2 FiO2 05/20/22 10:00 05/20/22 09:56 05/20/22 09:56 05/20/22 09:00 05/20/22 08:56 05/20/22 08:56 05/20/22 08:00 05/20/22 07:56 05/20/22 07:56 05/20/22 07:43 05/20/22 07:43 05/20/22 09:00 05/20/22 09:00 05/20/22 08:00 05/20/22 09:52 40 05/20/22 07:00 05/20/22 06:56 05/20/22 06:56 05/20/22 06:00 05/20/22 05:00 05/20/22 04:56 05/20/22 04:56 05/20/22 04:00 05/20/22 03:00 05/20/22 02:05 05/20/22 01:56 05/20/22 01:56 05/20/22 01:00 05/20/22 00:56 05/20/22 00:56 05/20/22 04:00 (1) Osteomyelitis Osteomyelitis location: unspecified site Osteomyelitis type: unspecified type Qualified Code(s): M86.9 - Osteomyelitis, unspecified (2) Decubitus ulcer of sacral area Pressure injury stage: stage 4 Qualified Code(s): L89.154 - Pressure ulcer of sacral region, stage 4
--- NOTE | 2022-05-20 14:19 | Billing Data ---
Date of Service May 20, 2022 Coding Level of Care Code 25382 Subseq Hosp Care Lvl 3
--- NOTE | 2022-05-20 17:13 | Hospitalist Progress Note ---
Date of Service May 20, 2022 Assessment & Plan (1) Sepsis: Plan: - patient with tachycardia, leukocytosis, lactic acidosis - source likely stage IV sacral ulcer with likely underlying osteomyelitis - broad spectrum abx - surgical consult-recommended surgical debridement, however, patient declined - ICU at this time - requiring phenylephrine support for HD, tolerating well - debridement planned for 05/20 in am - ID consulted as senior living abx will be needed. 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 (3) Ulcer of sacral region, stage 4: Plan: plan as above. (4) Radiation necrosis of skin and subcutaneous: Plan: - plan as above (5) Acute hyponatremia: Plan: - likely due to sepsis and decrease po intake - unclear degree of acuity as no prior labs available at this time - hold IVF for now as patient is hemodynamically stable and is ESRD - trend Na - monitor on AM labs-improved to 132 (6) Lactic acidosis: Plan: - likely in the setting of sepsis - resolved (7) End-stage renal disease (ESRD): Plan: - has been on HD for the past year, per patient - HD catheter in right chest - no evidence of infection at catheter site - renal consulted - normal schedule is MWF (8) Diabetes: Plan: - on insulin at home -cont insulin protocol per ICU -at inpatient goal - diabetic diet (9) Hypothyroid: Plan: - patient is hypothyroid on labs with TSH 22, FT4 <0.25 - unclear if patient taking medication appropriately - cont same home dose given separately from other meds here and recheck TFTs in 6 weeks. (10) Anemia: Plan: - chronic anemia in the setting of ESRD and GI losses (reported but not observed) and phlebotomy - was reportedly getting ?EPO injections with HD per Patient - continue EPO per renal - no signs of active bleeding at this time -Hb stable around 8.1 - will monitor for now (11) Thrombocytopenia: Plan: - unclear chronicity - likely consumption in sepsis, ESRD, chronic illness - no signs of bleeding - improving (12) Coagulopathy: Plan: - patient not on warfarin - in the setting of sepsis -DDx includes but not limited to DIC (less likely with elevated fibrinogen) vs poor nutrition. - will trend INR daily for now Plan DVT ppx: heparin SC, autoanticoagulated. Code Status: Full Code Anabel Escobar DO [facility] Hospitalist Admission and Anticipated Discharge Date Admission Date: May 14, 2022 Subjective The patient is a 66 year old woman with pmh rectal cancer s/p chemoradiation (~20 years ago), cervical/uterine cancer, h/o of chronic rectal bleeding s/p ostomy diversion (?11/2021), ESRD on HD (MWF), CAD s/p NH 2016, HTN, DM2 on insulin who presented with ongoing sacral wound infection. She recently was at [facility] where they did a surgical debridement and took bone cultures/pathology and was started on Daptomycin MWF with HD. She then left AMA from the post-discharge rehab because they felt they were not getting good care there. She reports that since chemoradiation, she has had chronic rectal bleeding requiring frequent hospitalizations. She eventually developed a sacral wound and eventually had a diverting colostomy to help with wound healing. Surgery evaluated her and recommended chemical debridement followed by likely surgical intervention and wound vac system. Renal consulted for HD. Started on daptomycin, cefepime, flagyl. Patient had episode of unstable vitals including elevated HR and went to ICU for close monitoring of BP and HR for HD session. Has been requiring pressor support during hemodialysis to achieve goals. Denies any pain in the sacral site Pt and her have declined the debridement surgery for uncertain reason She is denying chest pain, SOB or other issues today She spent the exam time holding the phone with her on the other line, and would put the phone down but then continued to pick it up limiting exam and questioning to some extent Review of Systems Review of Systems: All systems were reviewed and negative except as indicated in subjective above. Physical Exam Physical Exam: CONSTITUTIONAL: obese, edematous , vitals as above, generally NAD, easily falls asleep EYES: normal conjunctivae, no scleral icterus ENT: external ear and nose normal, MMM NECK: trachea midline, RESPIRATORY: clear to auscultation bilaterally, no crackles, rales or wheezes, normal respiratory effort CARDIOVASCULAR: regular rate and rhythm, S1 and 2 heard without murmurs, gallops or rubs, no JVD, trace peripheral edema in bilateral lower extremities. CHEST: inspection of chest reveals a HD catheter in right anterior chest and an US guided PIV in the upper right arm. GASTROINTESTINAL: soft, nontender, ND, +colostomy with formed stool present. no guarding MUSCULOSKELETAL: generalized weakness, head is normocephalic and atraumatic, SKIN: warm and dry, sacral ulcer was not viewed because of patient's limited mobility. Resolving rash on bilateral lower extremities. NEUROLOGIC: CN 2-12 grossly intact, no sensory deficit, normal cognition, normal speech, no tremor PSYCHIATRIC: alert cooperative and oriented to person, place and time. Results & Data Results & Data ([facility]) Vital Signs (Past 12 Hours) Vital Signs Temp Pulse Resp BP Pulse Ox O2 Del Method O2 Flow Rate 05/20/22 16:15 107/57 L 05/20/22 16:15 98 05/20/22 16:00 95 H 16 100 05/20/22 15:52 93 H 18 100 05/20/22 15:52 92/50 L 05/20/22 15:01 96/43 L 05/20/22 15:01 94 H 17 100 05/20/22 15:00 82 16 100 05/20/22 14:58 97/36 L 05/20/22 14:58 81 16 99 05/20/22 14:56 68/35 L 05/20/22 14:56 82 16 99 05/20/22 14:00 106 H 14 95 05/20/22 13:00 103 H 16 95 05/20/22 12:56 102/46 L 05/20/22 12:56 104 H 15 95 05/20/22 12:00 105 H 12 93 05/20/22 11:56 79/60 L 05/20/22 11:56 108 H 14 93 05/20/22 11:00 105 H 17 94 05/20/22 10:57 135/95 05/20/22 10:57 105 H 21 94 05/20/22 16:00 12 94 Nasal Cannula 2 05/20/22 12:00 12 94 Nasal Cannula 2 05/20/22 10:00 96 H 12 98 07/28/22 09:56 144/61 H 05/20/22 09:56 101 H 10 L 98 05/20/22 09:00 100 H 10 L 96 05/20/22 08:56 122/59 L 05/20/22 08:56 97 H 11 L 96 05/20/22 08:00 96 H 12 96 05/20/22 07:56 115/51 L 05/20/22 07:56 96 H 12 96 05/20/22 07:43 98/62 L 05/20/22 07:43 110 H 18 95 05/20/22 09:00 Nasal Cannula 2 05/20/22 09:00 36.8 C 05/20/22 08:00 23 97 Nasal Cannula 2 05/20/22 09:52 96 H 23 97 05/20/22 07:00 104 H 11 L 95 05/20/22 06:56 119/58 L 05/20/22 06:56 107 H 13 94 05/20/22 06:00 103 H 17 93 FiO2 05/20/22 16:15 05/20/22 16:15 05/20/22 16:00 05/20/22 15:52 05/20/22 15:52 05/20/22 15:01 05/20/22 15:01 05/20/22 15:00 05/20/22 14:58 05/20/22 14:58 05/20/22 14:56 05/20/22 14:56 05/20/22 14:00 05/20/22 13:00 05/20/22 12:56 05/20/22 12:56 05/20/22 12:00 05/20/22 11:56 05/20/22 11:56 05/20/22 11:00 05/20/22 10:57 05/20/22 10:57 05/20/22 16:00 05/20/22 12:00 05/20/22 10:00 05/20/22 09:56 05/20/22 09:56 05/20/22 09:00 05/20/22 08:56 05/20/22 08:56 05/20/22 08:00 05/20/22 07:56 05/20/22 07:56 05/20/22 07:43 05/20/22 07:43 05/20/22 09:00 05/20/22 09:00 05/20/22 08:00 05/20/22 09:52 40 05/20/22 07:00 05/20/22 06:56 05/20/22 06:56 05/20/22 06:00 Laboratory Results Short CBC 05/20/22 Range/Units 05:35 WBC 10.48 (4.8-10.8) K/ul Hgb 7.7 L (12.0-16.0) g/dl Hct 25.4 L (34.1-44.9) % Plt Count 115 L (130-400) K/uL BMP 05/20/22 05:35 Sodium 132 L Potassium 3.1 L Chloride 100 Carbon Dioxide 25 BUN 31 H Creatinine 2.49 H D Glucose 194 H Calcium 8.0 L Medications Administered Current Inpatient Medications Atorvastatin Calcium (Atorvastatin 40 Mg Tab) 40 mg PO QAM [facility] Stop: 06/14/22 08:59 Last Admin: 05/20/22 08:01 Dose: 40 mg Collagenase (Collagenase Oint 30 Gm Tube) 1 appln EXT DAILY ROSA M Stop: 06/14/22 08:59 Last Admin: 05/19/22 07:35 Dose: Not Given Dextrose (Dextrose 50% 50 Ml Syringe) 25 - 50 ml IV UD PRN; Protocol PRN Reason: Hypoglycemia Protocol Stop: 06/13/22 18:24 Last Admin: 05/16/22 11:55 Dose: 50 ml Gabapentin (Gabapentin 100 Mg Cap) 100 mg PO QAM [facility] Stop: 06/14/22 08:59 Last Admin: 05/20/22 08:03 Dose: 100 mg Gabapentin (Gabapentin 100 Mg Cap) 200 mg PO HS [facility] Stop: 06/18/22 20:59 Last Admin: 05/19/22 21:29 Dose: 200 mg Glucagon (Glucagon For Inj 1 Mg Vial) 1 mg SQ UD PRN; Protocol PRN Reason: Hypoglycemia Protocol Stop: 06/13/22 18:24 Glucose (Glucose 40% Gel 15 Gm Tube) 15 - 30 gm PO UD PRN; Protocol PRN Reason: Hypoglycemia Protocol Stop: 06/13/22 18:24 Glucose (Glucose 10 Tab/Tube) 4 - 8 tab PO UD PRN; Protocol PRN Reason: Hypoglycemia Treatment Stop: 06/13/22 18:24 Heparin Sodium (Porcine) (Heparin Sod 5,000 Unit/0.5 Ml Vial) 5,000 units SQ Q12 [facility] Stop: 06/13/22 20:59 Last Admin: 05/19/22 21:30 Dose: 5,000 units Hydromorphone HCl (Hydromorphone Inj 0.5 Mg/0.5 Ml Syr) 0.5 mg IV Q6H PRN PRN Reason: Breakthrough Pain Stop: 05/30/22 18:06 Hydroxyzine HCl (Hydroxyzine Hcl 25 Mg Tab) 25 mg PO Q6 PRN PRN Reason: Anxiety Stop: 06/17/22 18:44 Phenylephrine HCl 20 mg/ (Sodium Chloride) 502 mls @ 0 mls/hr IV .Q0M ROSA M; Protocol Stop: 06/19/22 07:29 Daptomycin 550 mg/ Syringe 11 mls @ 5.5 mls/min IV MoWe@1400 ROSA M; Protocol Stop: 07/05/22 13:59 Daptomycin 800 mg/ Syringe 16 mls @ 8 mls/min IV Fr@1400 ROSA M; Protocol Stop: 07/02/22 13:59 Hydrocortisone Sodium (Succinate 50 mg/ Syringe) 1 mls @ 4 mls/min IV DAILY ROSA M Stop: 06/20/22 08:59 Insulin Aspart (Insulin Aspart Per Unit) 0 units SC Q4 [facility]; Protocol Stop: 06/19/22 00:00 Last Admin: 05/20/22 12:01 Dose: 11 units Insulin Glargine (Lantus Per Unit Charge) 0 units SQ HS ROSA M; Protocol Stop: 06/19/22 20:59 Latanoprost (Latanoprost 0.005% Op Soln 2.5 Ml Btl) 1 drops OP QPM [facility] Stop: 06/13/22 20:59 Last Admin: 05/19/22 21:32 Dose: 1 drops Levothyroxine Sodium (Levothyroxine Sodium 137 Mcg Tablet) 137 mcg PO DAILYBB [facility] Stop: 06/14/22 06:29 Last Admin: 05/20/22 06:00 Dose: Not Given Metoprolol Succinate (Metoprolol Succ 25mg Ext Rel Tab) 25 mg PO QAM [facility] Stop: 06/14/22 08:59 Last Admin: 05/17/22 08:40 Dose: Not Given Midodrine (Midodrine Hcl 10 Mg Tab) 10 mg PO TID@0800,1200,1700 ROSA M Stop: 06/18/22 07:59 Last Admin: 05/20/22 12:00 Dose: 10 mg Miscellaneous (Carbohydrates For Hypoglycemia ) 15 - 30 gm PO UD PRN PRN Reason: Hypoglycemia Protocol Stop: 06/13/22 18:24 Miscellaneous Information (Pharmacy Glycemic Mgmt Consult) 1 each N/A UD PRN PRN Reason: Consult Stop: 06/13/22 18:24 Nitroglycerin (Nitroglycerin Sl 0.4 Mg/Tab Tab) 0.4 mg SL PRN PRN PRN Reason: Chest Pain Stop: 06/17/22 18:44 Ondansetron HCl (Ondansetron Inj 2 Mg/Ml 2 Ml Vial) 4 mg IV Q6H PRN PRN Reason: Nausea Stop: 06/13/22 18:19 Oxycodone HCl (Oxycodone Hcl Ir 5 Mg Tab (Immediate Release)) 2.5 mg PO DAILY PRN PRN Reason: Pain Stop: 05/31/22 03:56 Pantoprazole Sodium (Pantoprazole 40 Mg Tab) 40 mg PO DAILY ROSA M Stop: 06/14/22 08:59 Last Admin: 05/20/22 08:03 Dose: 40 mg Ropinirole HCl (Ropinirole Hcl 0.25 Mg Tablet) 0.25 mg PO HS ROSA M Stop: 06/17/22 20:59 Last Admin: 05/19/22 21:32 Dose: 0.25 mg (1) Osteomyelitis Osteomyelitis location: unspecified site Osteomyelitis type: unspecified type Qualified Code(s): M86.9 - Osteomyelitis, unspecified
[2022-05-20 19:15] LABS: iSTAT Allen Test Pass; iSTAT Art Bld Gas pCO2 Correct 42 mmHg (35-46); iSTAT Art Bld Gas pH Corrected 7.416 (7.35-7.45); iSTAT Arterial Blood Gas HCO3 27 meg/L (19-24); iSTAT Arterial Blood Gas pCO2 42 mmHg (35-46); iSTAT Arterial Blood Gas pH 7.41 (7.35-7.45); iSTAT Arterial Blood Gas pO2 75 mmHg (80-95); iSTAT Arterial Blood Gas pO2 C 74; iSTAT Carbon Dioxide 28 mmol/L (24-31); iSTAT Hematocrit 27 % (37-47); iSTAT Hemoglobin 9.2 g/dl (12.0-16.0); iSTAT Potassium 3.1 mmol/L (3.3-5.0); iSTAT Site L Radial; iSTAT Sodium 134 mmol/L (135-144)
[2022-05-20] MEDS: rOPINIRole HCL 0.25 MG TABLET PO SCH (20:56)
[2022-05-20] MEDS: LATANOPROST 0.005% OP SOLN 2.5 ML BTL OP SCH (20:58)
[2022-05-20] MEDS ORDERED: LANTUS PER UNIT CHARGE SQ SCH (21:00)
[2022-05-21] MEDS: INSULIN ASPART PER UNIT SC SCH ×5 (04:57→21:25)
[2022-05-21 06:41] LABS: Hematocrit (blood only) 25.5 % (34.1-44.9); Hemoglobin 7.7 g/dl (12.0-16.0); Mean Corpuscular Hemoglobin 30.7 pg (25.0-34.0); Mean Corpuscular Hgb Conc 30.2 g/dL (32.0-36.0); Mean Corpuscular Volume 101.6 fL (80.0-100.0); Mean Platelet Volume 11.6 fL (9.4-12.3); Nucleated RBC # (auto) 0.07 K/uL (0-0); Nucleated RBC % (auto) 0.7 %; Platelet Count 133 K/uL (130-400); RDW Coefficient of Variation 23.1 % (11.5-14.5); RDW Standard Deviation 81.6 fL (36.4-46.3); Red Blood Count 2.51 M/uL (3.93-5.22); White Blood Count 9.96 K/ul (4.8-10.8)
[2022-05-21 06:44] LABS: Anisocytosis Present; Basophilic Stippling 1+; Basophils # (auto) 0.01 K/uL (0-0.2); Basophils % (auto) 0.1 %; Eosinophils # (auto) 0.31 K/uL (0-0.50); Eosinophils % (auto) 3.1 %; Immature Granulocytes # (auto) 0.06 K/uL (0.00-0.02); Immature Granulocytes % (auto) 0.6 %; Lymphocytes # (auto) 0.94 K/uL (1.2-3.4); Lymphocytes % (auto) 9.4 %; Macrocytosis Present; Neutrophils # (auto) 8.24 K/uL (1.4-6.5); Neutrophils % (auto) 82.8 %; Target Cells 2+
[2022-05-21 06:57] LABS: BUN Creatinine Ratio 13.3 (10-20); Creatinine Clr Calc Pharmacy 17.4 ml/min; Est GFR (African American) 15.9 ml/min; Est GFR (Non-African American) 13.7 ml/min; Potassium 3.1 mmol/L (3.5-5.1)
[2022-05-21] MEDS ORDERED: EPOETIN ALFA 20,000 UNITS/ML VIAL IV ONE (07:26)
[2022-05-21] MEDS ORDERED: SODIUM CHLORIDE 0.9% 1000ML 1,000 ML IV PRN (07:26)
[2022-05-21] MEDS: LEVOTHYROXINE SODIUM 137 MCG TABLET PO SCH (07:37)
[2022-05-21] MEDS: MIDODRINE HCL 10 MG TAB PO SCH ×3 (07:55→17:02)
--- NOTE | 2022-05-21 08:32 | Critical Care Progress Note ---
Date of Service May 21, 2022 Assessment & Plan (1) Sepsis: Plan: Reason Critically Ill: 66-year-old female here with a PMHx significant for ESRD on thrice weekly dialysis, CAD, PAD, and rectal cancer (f/p chemoradiation approximately 20 years ago), and DM2, who presented with sepsis secondary to sacral ulcer/osteomyelitis (still awaiting surgical debridement) and was admitted for vasopressor support. Off vasopressor support since 05/18. Neuro - * CAM ICU: [NEGATIVE] * Sedation: None * Analgesia: IV Toradol as needed, IV Dilaudid as needed. Gabapentin 100 mg every morning, holding bedtime dose due to drowsiness. Cardiac -history of CAD, PAD * CAD: Continue atorvastatin 40 mg qAM. * HFpEF: Holding home metoprolol. * Hypotension: Resolved. Low BPs overnight/AM likely inaccurate--forearm BP of 109/66. Continue Midodrine. * Elevated troponin: Resolved. Respiratory - * Tachypnea: Resolved. GI - * Surgery cancelled. Cardiorenal diet RENAL/LYTES - * Hyperkalemia, LUDIN. Likely secondary to ESRD-associated volume overload. Continue scheduled dialysis. * Dialysis: 3 L removed 05/17, 3.5 L removed 05/18, 4L 05/19. ENDO - * Continue weaning hydrocortisone. Now 20 mg bid. * Hypothyroidism: Free T4 0.59. Increased PO levothyroxine to 150 mcg. HEME - * Chronic, stable anemia secondary to ESRD on dialysis. Currently on erythropoietin. ID - * Sacral ulcer/osteomyelitis: Continue Daptomycin, wound care. * Leukocytosis: Resolved. Antibiotic management as above. LINES/IV ACCESS - * PIVs intact, left-sided permacath DVT PROPHYLAXIS - * SQ Heparin q12h Thank you for allowing us to be part of this patient's care. Please refer to Dr. Quintero's documentation for any further recommendations. (2) PAD (peripheral artery disease): (3) Heart failure with preserved ejection fraction, borderline, class II: (4) Coronary artery disease: (5) Ulcer of sacral region, stage 4: (6) Osteomyelitis: (7) End-stage renal disease (ESRD): Admission and Anticipated Discharge Date Admission Date: May 14, 2022 Supervising Physician Co-Signing Physician Notes Dr. Brock was the resident-physician during care of patient. I separately evaluated patient for man portions of the history and the exam. I was present during the critical portion of medical decision making, and I discussed the case with the resident. I generally agree with the findings and plan except for any additions/exceptions noted. Patient seen and examined at bedside. No acute distress, no adverse events overnight. Patient is more alert today. Answering all the questions appropriately I repositioned the patient's blood pressure cuff and got a reading of MAP of 70 which was reproducible Denies any chest pain, no headache, no nausea, no vomiting, no belly pain. Denies any dizziness. Constitutional: No acute distress HEENT: EOMI, PERRLA Respiratory system: Decreased air entry bilaterally, no wheeze, no rhonchi, positive crackles bilaterally CVS: S1-S2 positive, no murmurs or gallops, distant heart sounds Abdomen: Soft, nontender, nondistended, positive bowel sounds x4, positive colostomy Extremities: +2 pulses bilaterally radialis/ dorsalis pedis, no cyanosis, +2 edema bilateral lower extremity Neuro: Awake alert oriented x3 Psych: Normal mood and affect G/U: No Santiago --Prophylaxis VTE: Heparin GI: Pantoprazole Lines: Peripheral, right-sided permacath Diet: Cardiorenal Plan: In/out: Positive 415 Change hydrocortisone to p.o. 20 mg p.o. twice daily followed by 20 mg once daily and then stop Continue with midodrine 10 mg 3 times daily Patient did not receive levothyroxine yesterday. Free T4 is still on the lower side. I will increase the levothyroxine 250 MCG and give first dose now. Given the somnolence that the patient was yesterday I will hold the evening dose of gabapentin Once the patient is done with hemodialysis and blood pressure is stable-she could be downgraded to medical floor. Overall prognosis of the patient is poor. I do think that has to be discussion regarding goals of care with patient as well as patient's . Please note the above document was generated using voice recognition software. It may contain grammatical, syntax or spelling errors.Any formal questions or concerns about the content, text or information contained within the body of this dictation should be directly addressed to the provider for clarification. Subjective No acute events overnight. Pt. and her declined surgical debridement yesterday and she did not undergo dialysis. This morning, she is awake and alert. She denies headache, chest pain, shortness of breath, or abdominal pain. Tolerated breakfast well without nausea. Review of Systems Review of Systems: All systems reviewed & are unremarkable except as noted in HPI & below Physical Exam Physical Exam: General: Well-appearing, alert, interactive, and in no acute distress. HEENT: Normocephalic, atraumatic. EOM intact. Moist mucosal membranes. Neck: Supple. No lymphadenopathy. Normal ROM. CV: Mildly tachycardic. Normal S1 and S2. No murmurs gallops or rubs. Respiratory: Crackles heard on auscultation bilaterally. No rhonchi, or wheezes heard. Abdomen: Soft, nondistended abdomen. No bruits heard on auscultation. No tenderness to deep palpation. Extremities: 2+ dp equal bilaterally. 2+ pitting lower extremity edema bilaterally. Neuro: Alert and oriented x3. Results & Data Results & Data ([facility]) Vital Signs (Past 12 Hours) Vital Signs Temp Pulse Resp BP Pulse Ox O2 Del Method O2 Flow Rate 05/21/22 08:04 100 H 15 109/66 95 Nasal Cannula 2 05/21/22 08:02 102 H 16 74/45 L 94 Nasal Cannula 2 05/21/22 07:56 96 H 15 95/37 L 93 Nasal Cannula 2 05/21/22 06:56 84 12 95/30 L 99 Nasal Cannula 2 05/21/22 08:04 36.5 C 05/21/22 06:00 36.7 C 91 H 8 L 97 05/21/22 05:56 92 H 10 L 98 05/21/22 05:56 82/41 L 05/21/22 05:00 85 9 L 100 05/21/22 04:56 85 8 L 100 05/21/22 04:56 36.7 C 82/44 L 05/21/22 04:00 85 11 L 100 05/21/22 03:56 81/41 L 05/21/22 03:56 82 9 L 100 05/21/22 03:00 83 7 L 100 05/21/22 02:56 83 9 L 99 05/21/22 02:56 92/27 L 05/21/22 02:00 86 10 L 99 05/21/22 01:56 84 6 L 99 05/21/22 01:56 87/40 L 05/21/22 01:00 86 7 L 100 05/21/22 00:56 89/42 L 05/21/22 00:56 86 9 L 99 05/21/22 04:00 94 Nasal Cannula 2 05/21/22 00:00 82 8 L 100 05/20/22 23:56 85 9 L 100 05/20/22 23:56 99/45 L 05/20/22 23:00 83 7 L 100 05/20/22 22:56 107/39 L 05/20/22 22:56 85 6 L 100 05/20/22 22:00 95 H 13 98 05/20/22 21:56 94/42 L 05/20/22 21:56 97 H 9 L 99 05/20/22 21:00 92 H 21 97 05/21/22 00:00 95 Nasal Cannula 2 Resident Activity Tracking Resident Involvement: Resident Care Provided Care Provided: Adult [facility] Medicine (1) Osteomyelitis Osteomyelitis location: unspecified site Osteomyelitis type: unspecified type Qualified Code(s): M86.9 - Osteomyelitis, unspecified
[2022-05-21] MEDS: GABAPENTIN 100 MG CAP PO SCH (08:57)
[2022-05-21] MEDS: HEPARIN SOD 5,000 UNIT/0.5 ML VIAL SQ SCH (08:58)
[2022-05-21] MEDS: PANTOprazole 40 MG TAB PO SCH (08:59)
[2022-05-21] MEDS ORDERED: HYDROCORTISONE SOD 50 MG in SYRINGE 0 ML IV SCH (09:00)
--- NOTE | 2022-05-21 09:35 | Billing Data ---
Date of Service May 21, 2022 Coding Level of Care Code 08328 Subseq Hosp Care Lvl 3
[2022-05-21] MEDS ORDERED: LEVOTHYROXINE SODIUM 150 MCG TABLET PO ONE (10:30)
[2022-05-21] MEDS: oxyCODONE HCL IR 5 MG TAB (IMMEDIATE RELEASE) PO PRN (10:40)
--- NOTE | 2022-05-21 11:24 | Pharmacy Report ---
Pharmacy Glycemic Short Note 2 - Date of Service May 21, 2022 - Glycemic Short BSG Results (Last 24 hours): 05/20/22 05/20/22 05/20/22 11:39 16:32 20:59 Glucose POC Glucose 204 H 148 H 170 H 05/20/22 05/20/22 05/21/22 23:53 23:55 04:25 Glucose POC Glucose 417 H* 171 H 89 05/21/22 05/21/22 05:42 07:19 Glucose 108 H POC Glucose 148 H OUTPATIENT ANTIDIABETIC REGIMEN: * Basaglar 42 units HS - reports following [facility] ASSESSMENT: 05/21 * BSGs well controlled over last 24 hrs * Fasting BSG 148 this AM with 15 units basal on board and after receipt of 4 units correctional insulin overnight * Yesterday's surgery cancelled. No longer NPO. No plans for surgery at this time. * Steroid dose continues to be tapered and has been converted to PO. No pressors support required in last 48 hrs. * HD is ordered today. 05/20 * BSGs somewhat erratic over last 24 hrs, but explainable. BSGs trended toward goal in the AM following receipt of larger basal insulin dose however quickly climbed in the afternoon following resumption of phenylephrine drip mixed in D5W. Phenylephrine continued thru ~1900 . BSGs then fell overnight following receipt of basal and correctional insulin. * Pt NPO today with plans for OR today. HD likely to be held today if pt does go to the OR. * Will give smaller dose of basal this AM due to NPO status. * Will mix phenylephrine in NSS if needed in the future. 05/19 * BSGs remain elevated despite receipt of 38 units insulin yesterday * Again BSG pattern suggests basal insulin deficiency. Will continue to uptitrate basal doses, cautiously given hypoglycemic event earlier this admission and upcoming NPO status. * Surgery planned for tomorrow. NPO planned after MN. * IV levothyroxine converted to PO in home dosage. IV steroid dose again tapered down. Expect improved insulin sensitivity with these changes. * HD again planned today. PLAN FOR INPATIENT GLYCEMIC CONTROL: * Hold outpatient oral diabetes medications * Basal insulin * Lantus 13 units Q HS, hold if BSG less than 120 * Bolus insulin * NovoLog per scale ACHS * Goal Range: Low 110 mg/dL - High 140 mg/dL * Correction Factor: 20 mg/dL/unit * Nutritional / Prandial insulin per carb ratio of 1 unit per 8 grams CHO consumed
--- NOTE | 2022-05-21 12:25 | Nephrology Progress Note ---
Date of Service May 21, 2022 Assessment & Plan (1) End-stage renal disease (ESRD): Plan: ESRD MWF at [facility] via dialysis catheter Last dialysed on 05/19 w/ 4L UF (no pressor); on 05/17 had 3L UF w/ pressor -Patient tolerating dialysis well today. She is planned for 4 hours and to get UF of 4 L. Next dialysis will likely be Tuesday. -max dose epo w/ tx >>>will ensure pharmacy dosing daptomycin post HD (2) Osteomyelitis: Plan: - awaiting surgical debridement > surgery evaluating daily, tentative for 05/20 - Continue on the MWF or/ and post HD Daptomycin Admission and Anticipated Discharge Date Admission Date: May 14, 2022 Subjective Seen in follow-up for ESRD. Patient was seen and examined while on dialysis. Main complaint is back pain Review of Systems Review of Systems: All other systems were reviewed and negative except as noted in HPI Physical Exam Physical Exam: General exam: Appears comfortable, no acute distress HEENT: Pupils are equal and reactive to light Neck: No JVD, neck is supple trachea is midline Respiratory system: Clear breath sounds bilaterally. Gastrointestinal: Abdomen is soft, non distended, non tender, bowel sounds are present CVS: Regular rate and rhythm. No murmurs, rubs or gallops Musculoskeletal: No joint or muscle tenderness Extremities: Non tender, 1+ edema, peripheral pulses are present Neuro: Oriented, no tremors, no focal neurological deficits Skin: No rashes Results & Data ([facility]) Vital Signs (Past 12 Hours) Vital Signs Temp Pulse Pulse Resp BP Pulse Ox O2 Del Method 05/21/22 12:00 96 H 109/53 L 05/21/22 11:30 93 H 106/65 05/21/22 11:00 99 H 108/82 05/21/22 11:53 96 H 12 118/63 95 Nasal Cannula 05/21/22 11:38 92 H 12 104/65 96 Nasal Cannula 05/21/22 11:29 94 H 14 106/65 96 Nasal Cannula 05/21/22 10:53 101 H 13 108/62 91 Nasal Cannula 05/21/22 10:38 102 H 18 143/59 H 95 Nasal Cannula 05/21/22 10:23 98 H 14 125/62 95 Nasal Cannula 05/21/22 10:00 92 H 13 125/61 100 Nasal Cannula 05/21/22 09:53 88 14 143/60 H 100 Nasal Cannula 05/21/22 09:38 91 H 13 103/56 L 100 05/21/22 08:56 87 16 115/48 L 100 Nasal Cannula 05/21/22 10:30 98 H 143/60 H 05/21/22 10:00 90 116/69 05/21/22 09:35 36.5 C 90 05/21/22 08:04 100 H 15 109/66 95 Nasal Cannula 05/21/22 08:02 102 H 16 74/45 L 94 Nasal Cannula 05/21/22 07:56 96 H 15 95/37 L 93 Nasal Cannula 05/21/22 06:56 84 12 95/30 L 99 Nasal Cannula 05/21/22 08:00 100 H 05/21/22 08:00 Nasal Cannula 05/21/22 08:04 36.5 C 05/21/22 06:00 36.7 C 91 H 8 L 97 05/21/22 05:56 92 H 10 L 98 05/21/22 05:56 82/41 L 05/21/22 05:00 85 9 L 100 05/21/22 04:56 85 8 L 100 05/21/22 04:56 36.7 C 82/44 L 05/21/22 04:00 85 11 L 100 05/21/22 03:56 81/41 L 05/21/22 03:56 82 9 L 100 05/21/22 03:00 83 7 L 100 05/21/22 02:56 83 9 L 99 05/21/22 02:56 92/27 L 05/21/22 02:00 86 10 L 99 05/21/22 01:56 84 6 L 99 05/21/22 01:56 87/40 L 05/21/22 01:00 86 7 L 100 05/21/22 00:56 89/42 L 05/21/22 00:56 86 9 L 99 05/21/22 04:00 94 Nasal Cannula O2 Flow Rate 05/21/22 12:00 05/21/22 11:30 05/21/22 11:00 05/21/22 11:53 1 05/21/22 11:38 1 05/21/22 11:29 1 05/21/22 10:53 1 05/21/22 10:38 1 05/21/22 10:23 1 05/21/22 10:00 1 05/21/22 09:53 2 05/21/22 09:38 05/21/22 08:56 2 05/21/22 10:30 05/21/22 10:00 05/21/22 09:35 05/21/22 08:04 2 05/21/22 08:02 2 05/21/22 07:56 2 05/21/22 06:56 2 05/21/22 08:00 05/21/22 08:00 2 05/21/22 08:04 05/21/22 06:00 05/21/22 05:56 05/21/22 05:56 05/21/22 05:00 05/21/22 04:56 05/21/22 04:56 05/21/22 04:00 05/21/22 03:56 05/21/22 03:56 05/21/22 03:00 05/21/22 02:56 05/21/22 02:56 05/21/22 02:00 05/21/22 01:56 05/21/22 01:56 05/21/22 01:00 05/21/22 00:56 05/21/22 00:56 05/21/22 04:00 2 Laboratory Results 05/21/22 05:42 05/21/22 05/21/22 05:42 05:42 WBC 9.96 RBC 2.51 L MCV 101.6 H MCH 30.7 MCHC 30.2 L RDW Std Deviation 81.6 H RDW Coeff of Josh 23.1 H Plt Count 133 MPV 11.6 Phosphorus 3.0 (1) Osteomyelitis Osteomyelitis location: unspecified site Osteomyelitis type: unspecified type Qualified Code(s): M86.9 - Osteomyelitis, unspecified
--- NOTE | 2022-05-21 12:26 | Cardiology Progress Note ---
Date of Service May 21, 2022 Assessment & Plan (1) Preop cardiovascular exam: (2) Sepsis: (3) Thrombocytopenia: (4) Anemia: (5) Ulcer of sacral region, stage 4: (6) Osteomyelitis: (7) Decubitus ulcer of sacral area: (8) Acute hyponatremia: (9) End-stage renal disease (ESRD): (10) Chronic radiation proctitis: (11) Radiation necrosis of skin and subcutaneous: (12) Uterine cancer: (13) Breast CA: (14) Cancer of anorectum: (15) Diabetes: (16) Coronary artery disease: (17) Heart failure with preserved ejection fraction, borderline, class II: (18) PAD (peripheral artery disease): Plan Given her multiple comorbidities including her ischemic cardiomyopathy the patie nt would obviously be a very high risk for any adverse perioperative cardiovascular event. I would place her risk at or greater than 10% Unfortunately, no further cardiac testing or intervention would further lower this risk. Should the patient and or her family understand and accepting of this risk then I would see no need to delay from a cardiac standpoint Patient's now reportedly refusing surgical intervention It would stand to reason that without surgical debridement any further medical care would ultimately be futile If surgery is not permitted then recommend hospice care Admission and Anticipated Discharge Date Admission Date: May 14, 2022 Subjective Patient seen and examined, chart reviewed. No events overnight. Review of Systems Review of Systems: All systems reviewed & are unremarkable except as noted in HPI & below Physical Exam Physical Exam: General: AAO x 3. No acute distress. HEENT: Normocephalic, atraumatic. Pupils equal, round and reactive to light and accommodation. Extraocular muscles are intact. Anicteric sclera. Moist mucous membranes. Neck: No JVD. No bruit. Cardiovascular: Regular. Positive S-4. Normal S-1 and S-2. No S-3. No murmurs or rubs. Pulmonary: Clear to auscultation B/L. No rales, rhonchi or wheezing Abdomen: Bowel sounds x 4, soft. No rebound, guarding or tenderness. No organomegaly. Extremities: No clubbing, cyanosis or edema. +2 pedal pulses bilaterally. Skin: Warm and dry. Results & Data ([facility]) Vital Signs (Past 12 Hours) Vital Signs Temp Pulse Pulse Resp BP Pulse Ox O2 Del Method 05/21/22 12:00 96 H 109/53 L 05/21/22 11:30 93 H 106/65 05/21/22 11:00 99 H 108/82 05/21/22 11:53 96 H 12 118/63 95 Nasal Cannula 05/21/22 11:38 92 H 12 104/65 96 Nasal Cannula 05/21/22 11:29 94 H 14 106/65 96 Nasal Cannula 05/21/22 10:53 101 H 13 108/62 91 Nasal Cannula 05/21/22 10:38 102 H 18 143/59 H 95 Nasal Cannula 05/21/22 10:23 98 H 14 125/62 95 Nasal Cannula 05/21/22 10:00 92 H 13 125/61 100 Nasal Cannula 05/21/22 09:53 88 14 143/60 H 100 Nasal Cannula 05/21/22 09:38 91 H 13 103/56 L 100 05/21/22 08:56 87 16 115/48 L 100 Nasal Cannula 05/21/22 10:30 98 H 143/60 H 05/21/22 10:00 90 116/69 05/21/22 09:35 36.5 C 90 05/21/22 08:04 100 H 15 109/66 95 Nasal Cannula 05/21/22 08:02 102 H 16 74/45 L 94 Nasal Cannula 05/21/22 07:56 96 H 15 95/37 L 93 Nasal Cannula 05/21/22 06:56 84 12 95/30 L 99 Nasal Cannula 05/21/22 08:00 100 H 05/21/22 08:00 Nasal Cannula 05/21/22 08:04 36.5 C 05/21/22 06:00 36.7 C 91 H 8 L 97 05/21/22 05:56 92 H 10 L 98 05/21/22 05:56 82/41 L 05/21/22 05:00 85 9 L 100 05/21/22 04:56 85 8 L 100 05/21/22 04:56 36.7 C 82/44 L 05/21/22 04:00 85 11 L 100 05/21/22 03:56 81/41 L 05/21/22 03:56 82 9 L 100 05/21/22 03:00 83 7 L 100 05/21/22 02:56 83 9 L 99 05/21/22 02:56 92/27 L 05/21/22 02:00 86 10 L 99 05/21/22 01:56 84 6 L 99 05/21/22 01:56 87/40 L 05/21/22 01:00 86 7 L 100 05/21/22 00:56 89/42 L 05/21/22 00:56 86 9 L 99 05/21/22 04:00 94 Nasal Cannula O2 Flow Rate 05/21/22 12:00 05/21/22 11:30 05/21/22 11:00 05/21/22 11:53 1 05/21/22 11:38 1 05/21/22 11:29 1 05/21/22 10:53 1 05/21/22 10:38 1 05/21/22 10:23 1 05/21/22 10:00 1 05/21/22 09:53 2 05/21/22 09:38 05/21/22 08:56 2 05/21/22 10:30 05/21/22 10:00 05/21/22 09:35 05/21/22 08:04 2 05/21/22 08:02 2 05/21/22 07:56 2 05/21/22 06:56 2 05/21/22 08:00 05/21/22 08:00 2 05/21/22 08:04 05/21/22 06:00 05/21/22 05:56 05/21/22 05:56 05/21/22 05:00 05/21/22 04:56 05/21/22 04:56 05/21/22 04:00 05/21/22 03:56 05/21/22 03:56 05/21/22 03:00 05/21/22 02:56 05/21/22 02:56 05/21/22 02:00 05/21/22 01:56 05/21/22 01:56 05/21/22 01:00 05/21/22 00:56 05/21/22 00:56 05/21/22 04:00 2 (1) Osteomyelitis Osteomyelitis location: unspecified site Osteomyelitis type: unspecified type Qualified Code(s): M86.9 - Osteomyelitis, unspecified (2) Decubitus ulcer of sacral area Pressure injury stage: stage 4 Qualified Code(s): L89.154 - Pressure ulcer of sacral region, stage 4
[2022-05-21] MEDS ORDERED: POTASSIUM CHLORIDE CRTAB 20 MEQ TABCR PO STA (12:32)
--- NOTE | 2022-05-21 12:32 | Palliative Care Progress Note ---
Date of Service May 21, 2022 Assessment & Plan (1) Palliative care encounter: Plan: When I explained the role of palliative care, Kyung spontaneously told me that she did not want to have surgery. I asked her to elaborate on that. She told me that it was risky and probably wouldn't help. "The infection will come back". She told me that she did not feel like her current level of function was living. 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 She feels that if she can't do that or do activities with her grandchildren then "that isn't really living". She mentioned multiple times that she is ready to and not afraid of dying. We discussed option to shift focus of care to symptom management only. She did not feel that she wanted to stop dialysis. We discussed her code status and I told her about my previous conversation with her when he told me that she has always said that she didn't want to be kept alive on machines. She confirmed this. I also spoke to her and told him what Kyung said during on conversation. He supports her decision to be DNR. He tells me that he hopes that she could be around for her grandchildren but understands that her body is failing. Code status changed to reflect her goals. Dr. Escobar and RN notified. Admission and Anticipated Discharge Date Admission Date: May 14, 2022 Sushant Tracey remains in the ICU for treatment of sepsis and osteomyelitis related to sacral ulcer. She is no longer requiring IV pressor support. She is tolerating dialysis on midrodrine. She has no complaints of pain, dyspnea or nausea. She tells me that her appetite is better. She was able to sit on the edge of the bed and stand yesterday. Review of Systems Review of Systems: ESAS Pain 0/3 Dyspnea 0/3 Fatigue 2/3 Nausea 0/3 Drowsiness 0/3 PPS 40% Physical Exam Constitutional: no acute distress ENMT: Mouth: + dry oral mucous membranes Respiratory: normal respiratory effort; no labored breathing Cardiovascular: Rate/Rhythm: regular rate and regular rhythm Extremities: + edema Neurologic: awake; not confused Results & Data ([facility]) Vital Signs (Past 12 Hours) Vital Signs Temp Pulse Pulse Resp BP Pulse Ox O2 Del Method 05/21/22 12:00 96 H 109/53 L 05/21/22 11:30 93 H 106/65 05/21/22 11:00 99 H 108/82 05/21/22 11:53 96 H 12 118/63 95 Nasal Cannula 05/21/22 11:38 92 H 12 104/65 96 Nasal Cannula 05/21/22 11:29 94 H 14 106/65 96 Nasal Cannula 05/21/22 10:53 101 H 13 108/62 91 Nasal Cannula 05/21/22 10:38 102 H 18 143/59 H 95 Nasal Cannula 05/21/22 10:23 98 H 14 125/62 95 Nasal Cannula 05/21/22 10:00 92 H 13 125/61 100 Nasal Cannula 05/21/22 09:53 88 14 143/60 H 100 Nasal Cannula 05/21/22 09:38 91 H 13 103/56 L 100 05/21/22 08:56 87 16 115/48 L 100 Nasal Cannula 05/21/22 10:30 98 H 143/60 H 05/21/22 10:00 90 116/69 05/21/22 09:35 97.7 F 90 05/21/22 08:04 100 H 15 109/66 95 Nasal Cannula 05/21/22 08:02 102 H 16 74/45 L 94 Nasal Cannula 05/21/22 07:56 96 H 15 95/37 L 93 Nasal Cannula 05/21/22 06:56 84 12 95/30 L 99 Nasal Cannula 05/21/22 08:00 100 H 05/21/22 08:00 Nasal Cannula 05/21/22 08:04 97.7 F 05/21/22 06:00 98.1 F 91 H 8 L 97 05/21/22 05:56 92 H 10 L 98 05/21/22 05:56 82/41 L 05/21/22 05:00 85 9 L 100 05/21/22 04:56 85 8 L 100 05/21/22 04:56 98.1 F 82/44 L 05/21/22 04:00 85 11 L 100 05/21/22 03:56 81/41 L 05/21/22 03:56 82 9 L 100 05/21/22 03:00 83 7 L 100 05/21/22 02:56 83 9 L 99 05/21/22 02:56 92/27 L 05/21/22 02:00 86 10 L 99 05/21/22 01:56 84 6 L 99 05/21/22 01:56 87/40 L 05/21/22 01:00 86 7 L 100 05/21/22 00:56 89/42 L 05/21/22 00:56 86 9 L 99 05/21/22 04:00 94 Nasal Cannula O2 Flow Rate 05/21/22 12:00 05/21/22 11:30 05/21/22 11:00 05/21/22 11:53 1 05/21/22 11:38 1 05/21/22 11:29 1 05/21/22 10:53 1 05/21/22 10:38 1 05/21/22 10:23 1 05/21/22 10:00 1 05/21/22 09:53 2 05/21/22 09:38 05/21/22 08:56 2 05/21/22 10:30 05/21/22 10:00 05/21/22 09:35 05/21/22 08:04 2 05/21/22 08:02 2 05/21/22 07:56 2 05/21/22 06:56 2 05/21/22 08:00 05/21/22 08:00 2 05/21/22 08:04 05/21/22 06:00 05/21/22 05:56 05/21/22 05:56 05/21/22 05:00 05/21/22 04:56 05/21/22 04:56 05/21/22 04:00 05/21/22 03:56 05/21/22 03:56 05/21/22 03:00 05/21/22 02:56 05/21/22 02:56 05/21/22 02:00 05/21/22 01:56 05/21/22 01:56 05/21/22 01:00 05/21/22 00:56 05/21/22 00:56 05/21/22 04:00 2 PG Care Time/CCT Total # of Minutes Spent Total Time Spent: 45 Total Time Spent with Patient: Total time spent is greater than 50% in coordination of care (as documented) at patient's floor/unit and/or counseling patient: goals of care, code status Coding Level of Care Code 48247 Subseq Hosp Care Lvl 3 Diagnoses Palliative care encounter Z51.5
[2022-05-21] MEDS: DAPTOmycin 800 MG in SYRINGE 0 ML IV SCH (13:54)
--- NOTE | 2022-05-21 14:39 | Hospitalist Progress Note ---
Date of Service May 21, 2022 Assessment & Plan (1) Sepsis: Plan: - patient with tachycardia, leukocytosis, lactic acidosis - source likely stage IV sacral ulcer with likely underlying osteomyelitis - broad spectrum abx - surgical consult-recommended surgical debridement, however, patient declined - ICU at this time - requiring phenylephrine support for HD, tolerating well - debridement planned for 05/20 in am - ID consulted as terminal operator abx will be needed. 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 Santyl has been held. (3) Ulcer of sacral region, stage 4: Plan: plan as above. (4) Radiation necrosis of skin and subcutaneous: Plan: - plan as above (5) Acute hyponatremia: Plan: - likely due to sepsis and decrease po intake - unclear degree of acuity as no prior labs available at this time - hold IVF for now as patient is hemodynamically stable and is ESRD - trend Na - monitor on AM labs-improved to 132 (6) Lactic acidosis: Plan: - likely in the setting of sepsis - resolved (7) End-stage renal disease (ESRD): Plan: - has been on HD for the past year, per patient - HD catheter in right chest - no evidence of infection at catheter site - renal consulted - normal schedule is MWF (8) Diabetes: Plan: - on insulin at home -cont insulin protocol per ICU -at inpatient goal - diabetic diet (9) Hypothyroid: Plan: - patient is hypothyroid on labs with TSH 22, FT4 <0.25 - unclear if patient taking medication appropriately - cont same home dose given separately from other meds here and recheck TFTs in 6 weeks. (10) Anemia: Plan: - chronic anemia in the setting of ESRD and GI losses (reported but not observed) and phlebotomy - was reportedly getting ?EPO injections with HD per Patient - continue EPO per renal - no signs of active bleeding at this time -Hb stable around 8.1 - will monitor for now (11) Thrombocytopenia: Plan: - unclear chronicity - likely consumption in sepsis, ESRD, chronic illness - no signs of bleeding - improving (12) Coagulopathy: Plan: - patient not on warfarin - in the setting of sepsis -DDx includes but not limited to DIC (less likely with elevated fibrinogen) vs poor nutrition. - will trend INR daily for now Plan DVT ppx: heparin SC, autoanticoagulated. Code Status: changed to DNR after update by palliative doctor today. She is not quite ready for hospice at this point and wants to keep going wt hemodialysis for now. Spent time with her in the morning and came back in the afternoon to address the new onset afib with rapid ventricular response. 30 minutes of critical care time spent in assessing patient clinically, ordering and reviewing diagnostics, coordinating with nurses and doctors and updating family as well as documenting care plan. [facility]abel Escobar [facility]tic[facility]ated Discharge Date Admission Date: May 14, 2022 Subjective The patient is a 66 year old woman with pmh rectal cancer s/p chemoradiation (~20 years ago), cervical/uterine cancer, h/o of chronic rectal bleeding s/p ostomy diversion (?11/2021), ESRD on HD (MWF), CAD s/p NV 2016, HTN, DM2 on insulin who presented with ongoing sacral wound infection. She recently was at [facility] where they did a surgical debridement and took bone cultures/pathology and was started on Daptomycin MWF with HD. She then left AMA from the post-discharge rehab because they felt they were not getting good care there. She reports that since chemoradiation, she has had chronic rectal ble eding requiring frequent hospitalizations. She eventually developed a sacral wound and eventually had a diverting colostomy to help with wound healing. Surgery evaluated her and recommended chemical debridement followed by likely surgical intervention and wound vac system. Renal consulted for HD. Started on daptomycin, cefepime, flagyl. Patient had episode of unstable vitals including elevated HR and went to ICU for close monitoring of BP and HR for HD session. Has been requiring pressor support during hemodialysis to achieve goals. Today she is off pressor support and was able to downgrade from ICU status to PCU She tolerated a HD session today with 3.5L ultrafiltrate removed. She reports some pain in her sacral wound that is minor. She is still very weak and is minimally moving around She is tolerating PO She is oxygenating 94% on 1LPM 5:20p: contacted by nurse that she went into afib with RVR with a rate of 130 and a BP in the 80s. She is asymptomatic. Bolus of NSS started for 500cc. BP fell again to 73/53 with a HR in the 130-150s. Bolus wasn't quite completed so still running that. Scheduled midodrine was given. Discussed with family medicine resident director of reservations. Per recs, bolus amio with drip ordered. Etiologies considered include but not limited to acute PE (on DVT prophy but very sedentary and high risk for this), hyperthyroidism (although TSH was 22 on admission, she was given IV levothyroxine during her stay), NV (low likelihood with no chest pain, SOB or other symptoms and no ST changes on EKG), electrolyte abnormalities (hypokalemia this morning), acid base changes. Ordered CBC, CMP, TSH, trop. Discussed plan with ICU nurse at bedside and continued to coordinate care with cardiology Communicated with who was at bedside about what was happening. After stabilizing her, would consider CT chest to rule out PE. Review of Systems Review of Systems: All systems were reviewed and negative except as indicated in subjective above. Physical Exam Physical Exam: CONSTITUTIONAL: obese, edematous , vitals as above, generally NAD, easily falls asleep EYES: normal conjunctivae, no scleral icterus ENT: external ear and nose normal, MMM NECK: trachea midline, RESPIRATORY: clear to auscultation bilaterally, no crackles, rales or wheezes, normal respiratory effort CARDIOVASCULAR: regular rate and rhythm, S1 and 2 heard without murmurs, gallops or rubs, no JVD, trace peripheral edema in bilateral lower extremities. CHEST: inspection of chest reveals a HD catheter in right anterior chest and an US guided PIV in the upper right arm. GASTROINTESTINAL: soft, nontender, ND, +colostomy with formed stool present. no guarding MUSCULOSKELETAL: generalized weakness, head is normocephalic and atraumatic, SKIN: warm and dry, sacral ulcer was not viewed because of patient's limited mobility. Resolving rash on bilateral lower extremities. NEUROLOGIC: CN 2-12 grossly intact, no sensory deficit, normal cognition, normal speech, no tremor PSYCHIATRIC: alert cooperative and oriented to person, place and time. Results & Data Results & Data ([facility]) Vital Signs (Past 12 Hours) Vital Signs Temp Pulse Pulse Resp BP BP Pulse Ox 05/21/22 13:26 95 H 14 111/50 L 91 05/21/22 13:08 102 H 15 103/78 97 05/21/22 12:54 96 H 14 127/64 97 05/21/22 12:40 98 H 16 90/57 L 96 05/21/22 12:23 96 H 16 96/59 L 96 05/21/22 12:08 94 H 14 109/53 L 96 05/21/22 12:00 36.6 C 05/21/22 13:20 36.5 C 91 H 127/74 05/21/22 13:00 102 H 90/57 L 05/21/22 12:30 98 H 96/59 L 05/21/22 12:00 96 H 109/53 L 05/21/22 11:30 93 H 106/65 05/21/22 11:00 99 H 108/82 05/21/22 11:53 96 H 12 118/63 95 05/21/22 11:38 92 H 12 104/65 96 05/21/22 11:29 94 H 14 106/65 96 05/21/22 10:53 101 H 13 108/62 91 05/21/22 10:38 102 H 18 143/59 H 95 05/21/22 10:23 98 H 14 125/62 95 05/21/22 10:00 92 H 13 125/61 100 05/21/22 09:53 88 14 143/60 H 100 05/21/22 09:38 91 H 13 103/56 L 100 05/21/22 08:56 87 16 115/48 L 100 05/21/22 10:30 98 H 143/60 H 05/21/22 10:00 90 116/69 05/21/22 09:35 36.5 C 90 05/21/22 08:04 100 H 15 109/66 95 05/21/22 08:02 102 H 16 74/45 L 94 05/21/22 07:56 96 H 15 95/37 L 93 05/21/22 06:56 84 12 95/30 L 99 05/21/22 08:00 100 H 05/21/22 08:00 05/21/22 08:04 36.5 C 05/21/22 06:00 36.7 C 91 H 8 L 97 05/21/22 05:56 92 H 10 L 98 05/21/22 05:56 82/41 L 05/21/22 05:00 85 9 L 100 05/21/22 04:56 85 8 L 100 05/21/22 04:56 36.7 C 82/44 L 05/21/22 04:00 85 11 L 100 05/21/22 03:56 81/41 L 05/21/22 03:56 82 9 L 100 05/21/22 03:00 83 7 L 100 05/21/22 02:56 83 9 L 99 05/21/22 02:56 92/27 L 05/21/22 04:00 94 O2 Del Method O2 Flow Rate 05/21/22 13:26 Room Air 05/21/22 13:08 Nasal Cannula 1 05/21/22 12:54 Nasal Cannula 1 05/21/22 12:40 Nasal Cannula 1 05/21/22 12:23 Nasal Cannula 1 05/21/22 12:08 Nasal Cannula 1 05/21/22 12:00 05/21/22 13:20 05/21/22 13:00 05/21/22 12:30 05/21/22 12:00 05/21/22 11:30 05/21/22 11:00 05/21/22 11:53 Nasal Cannula 1 05/21/22 11:38 Nasal Cannula 1 05/21/22 11:29 Nasal Cannula 1 05/21/22 10:53 Nasal Cannula 1 05/21/22 10:38 Nasal Cannula 1 05/21/22 10:23 Nasal Cannula 1 05/21/22 10:00 Nasal Cannula 1 05/21/22 09:53 Nasal Cannula 2 05/21/22 09:38 05/21/22 08:56 Nasal Cannula 2 05/21/22 10:30 05/21/22 10:00 05/21/22 09:35 05/21/22 08:04 Nasal Cannula 2 05/21/22 08:02 Nasal Cannula 2 05/21/22 07:56 Nasal Cannula 2 05/21/22 06:56 Nasal Cannula 2 05/21/22 08:00 05/21/22 08:00 Nasal Cannula 2 05/21/22 08:04 05/21/22 06:00 05/21/22 05:56 05/21/22 05:56 05/21/22 05:00 05/21/22 04:56 05/21/22 04:56 05/21/22 04:00 05/21/22 03:56 05/21/22 03:56 05/21/22 03:00 05/21/22 02:56 05/21/22 02:56 05/21/22 04:00 Nasal Cannula 2 Laboratory Results Short CBC 05/21/22 Range/Units 05:42 WBC 9.96 (4.8-10.8) K/ul Hgb 7.7 L (12.0-16.0) g/dl Hct 25.5 L (34.1-44.9) % Plt Count 133 (130-400) K/uL BMP 05/21/22 05:42 Sodium 133 L Potassium 3.1 L Chloride 100 Carbon Dioxide 26 BUN 44 H Creatinine 3.31 H D Glucose 108 H Calcium 8.0 L Medications Administered Current Inpatient Medications Atorvastatin Calcium (Atorvastatin 40 Mg Tab) 40 mg PO QAM ROSA M Stop: 06/14/22 08:59 Last Admin: 05/20/22 08:01 Dose: 40 mg Collagenase (Collagenase Oint 30 Gm Tube) 1 appln EXT DAILY ROSA M Stop: 06/14/22 08:59 Last Admin: 05/19/22 07:35 Dose: Not Given Dextrose (Dextrose 50% 50 Ml Syringe) 25 - 50 ml IV UD PRN; Protocol PRN Reason: Hypoglycemia Protocol Stop: 06/13/22 18:24 Last Admin: 05/16/22 11:55 Dose: 50 ml Gabapentin (Gabapentin 100 Mg Cap) 100 mg PO QAM ROSA M Stop: 06/14/22 08:59 Last Admin: 05/21/22 08:57 Dose: 100 mg Gabapentin (Gabapentin 100 Mg Cap) 200 mg PO HS ROSA M Stop: 06/18/22 20:59 Last Admin: 05/20/22 20:56 Dose: 200 mg Glucagon (Glucagon For Inj 1 Mg Vial) 1 mg SQ UD PRN; Protocol PRN Reason: Hypoglycemia Protocol Stop: 06/13/22 18:24 Glucose (Glucose 40% Gel 15 Gm Tube) 15 - 30 gm PO UD PRN; Protocol PRN Reason: Hypoglycemia Protocol Stop: 06/13/22 18:24 Glucose (Glucose 10 Tab/Tube) 4 - 8 tab PO UD PRN; Protocol PRN Reason: Hypoglycemia Treatment Stop: 06/13/22 18:24 Heparin Sodium (Porcine) (Heparin Sod 5,000 Unit/0.5 Ml Vial) 5,000 units SQ Q12 ROSA M Stop: 06/13/22 20:59 Last Admin: 05/21/22 08:58 Dose: 5,000 units Hydrocortisone (Hydrocortisone 10 Mg Tab) 20 mg PO BIDM ROSA M; Taper Stop: 05/24/22 07:59 Hydromorphone HCl (Hydromorphone Inj 0.5 Mg/0.5 Ml Syr) 0.5 mg IV Q6H PRN PRN Reason: Breakthrough Pain Stop: 05/30/22 18:06 Hydroxyzine HCl (Hydroxyzine Hcl 25 Mg Tab) 25 mg PO Q6 PRN PRN Reason: Anxiety Stop: 06/17/22 18:44 Phenylephrine HCl 20 mg/ (Sodium Chloride) 502 mls @ 0 mls/hr IV .Q0M ROSA M; Protocol Stop: 06/19/22 07:29 Daptomycin 550 mg/ Syringe 11 mls @ 5.5 mls/min IV MoWe@1400 ROSA M; Protocol Stop: 07/05/22 13:59 Daptomycin 800 mg/ Syringe 16 mls @ 8 mls/min IV Fr@1400 ROSA M; Protocol Stop: 07/02/22 13:59 Last Admin: 05/21/22 13:54 Dose: 8 mls/min Insulin Aspart (Insulin Aspart Per Unit) 0 units SC ACHS [facility]; Protocol Stop: 06/20/22 11:29 Last Admin: 05/21/22 11:57 Dose: Not Given Insulin Glargine (Lantus Per Unit Charge) 0 units SQ HS [facility]; Protocol Stop: 06/19/22 20:59 Last Admin: 05/20/22 21:08 Dose: 10 units Latanoprost (Latanoprost 0.005% Op Soln 2.5 Ml Btl) 1 drops OP QPM ROSA M Stop: 06/13/22 20:59 Last Admin: 05/20/22 20:58 Dose: 1 drops Levothyroxine Sodium (Levothyroxine Sodium 150 Mcg Tablet) 150 mcg PO DAILYBB [facility] Stop: 06/21/22 06:29 Metoprolol Succinate (Metoprolol Succ 25mg Ext Rel Tab) 25 mg PO QAM ROSA M Stop: 06/14/22 08:59 Last Admin: 05/17/22 08:40 Dose: Not Given Midodrine (Midodrine Hcl 10 Mg Tab) 10 mg PO TID@0800,1200,1700 ROSA M Stop: 06/18/22 07:59 Last Admin: 05/21/22 11:49 Dose: 10 mg Miscellaneous (Carbohydrates For Hypoglycemia ) 15 - 30 gm PO UD PRN PRN Reason: Hypoglycemia Protocol Stop: 06/13/22 18:24 Miscellaneous Information (Pharmacy Glycemic Mgmt Consult) 1 each N/A UD PRN PRN Reason: Consult Stop: 06/13/22 18:24 Nitroglycerin (Nitroglycerin Sl 0.4 Mg/Tab Tab) 0.4 mg SL PRN PRN PRN Reason: Chest Pain Stop: 06/17/22 18:44 Ondansetron HCl (Ondansetron Inj 2 Mg/Ml 2 Ml Vial) 4 mg IV Q6H PRN PRN Reason: Nausea Stop: 06/13/22 18:19 Oxycodone HCl (Oxycodone Hcl Ir 5 Mg Tab (Immediate Release)) 2.5 mg PO DAILY PRN PRN Reason: Pain Stop: 05/31/22 03:56 Last Admin: 05/21/22 10:40 Dose: 2.5 mg Pantoprazole Sodium (Pantoprazole 40 Mg Tab) 40 mg PO DAILY ROSA M Stop: 06/14/22 08:59 Last Admin: 05/21/22 08:59 Dose: 40 mg Ropinirole HCl (Ropinirole Hcl 0.25 Mg Tablet) 0.25 mg PO HS ROSA M Stop: 06/17/22 20:59 Last Admin: 05/20/22 20:56 Dose: 0.25 mg (1) Osteomyelitis Osteomyelitis location: unspecified site Osteomyelitis type: unspecified type Qualified Code(s): M86.9 - Osteomyelitis, unspecified
[2022-05-21] MEDS ORDERED: SODIUM CHLORIDE 0.9% 1000ML 500 ML IV ONE (16:56)
[2022-05-21] MEDS ORDERED: STAT IV Infusion **Titration per Protocol STA (17:22)
[2022-05-21] MEDS ORDERED: 0.2 MICRON FILTER SET 1 EACH IV STA (17:22)
[2022-05-21] MEDS ORDERED: AMIODARONE / D5W 150 MG/100 ML BAG IV STA (17:22)
[2022-05-21] MEDS ORDERED: AMIODARONE IV BOLUS & DRIP IV STA (17:22)
[2022-05-21 17:29] LABS: Hematocrit (blood only) 27.2 % (34.1-44.9); Hemoglobin 8.3 g/dl (12.0-16.0); Mean Corpuscular Hemoglobin 31.6 pg (25.0-34.0); Mean Corpuscular Hgb Conc 30.5 g/dL (32.0-36.0); Mean Corpuscular Volume 103.4 fL (80.0-100.0); Nucleated RBC # (auto) 0.11 K/uL (0-0); Platelet Count 141 K/uL (130-400); RDW Coefficient of Variation 23.9 % (11.5-14.5); Red Blood Count 2.63 M/uL (3.93-5.22)
[2022-05-21] MEDS ORDERED: AMIODARONE / D5W 360 MG/200 ML BAG IV ONE (17:33)
[2022-05-21 17:52] LABS: Albumin Globulin Ratio 0.6 (0.9-2); Albumin Level 2.2 gm/dl (3.4-5.0); BUN Creatinine Ratio 12.1 (10-20); Bilirubin,Total 1.1 mg/dl (0.2-1.0); Calcium 7.7 mg/dl (8.5-10.1); Creatinine Clr Calc Pharmacy 24.3 ml/min; Est GFR (African American) 24.4 ml/min; Est GFR (Non-African American) 21.1 ml/min; Globulin 3.4 gm/dl (2.5-4.0); Magnesium 1.8 mg/dl (1.7-2.4); Potassium 3.9 mmol/L (3.5-5.1); Total Protein 5.6 gm/dl (6.0-8.3)
[2022-05-21 17:58] LABS: Troponin I High Sensitivity 306.8 pg/ml (0-14)
[2022-05-21] MEDS ORDERED: SODIUM CHLORIDE 0.9% 500 ML IV SCH (18:00)
[2022-05-21] MEDS ORDERED: Heparin IV Adult Wt-Based Standard *NO* Bolus Protocol IV SCH (18:57)
[2022-05-21] MEDS ORDERED: HEPARIN 25000 UNIT/500 ML D5W IV ONE (19:11)
[2022-05-21] MEDS: HEPARIN SODIUM/DEXTROSE 25,000 UNITS/500 ML BAG IV SCH (19:41)
[2022-05-21 19:48] LABS: Partial Thromboplastin Ratio 1.3; Partial Thromboplastin Time 36.1 Seconds (21.0-31.0)
[2022-05-21] MEDS: rOPINIRole HCL 0.25 MG TABLET PO SCH (20:52)
[2022-05-21] MEDS ORDERED: LANTUS PER UNIT CHARGE SQ SCH (21:00)
[2022-05-21] MEDS: LATANOPROST 0.005% OP SOLN 2.5 ML BTL OP SCH (21:24)
[2022-05-21] MEDS ORDERED: ALBUMIN 25% 12.5 GM/50 ML VIAL IV ONE ×2 (21:45→23:01)
[2022-05-21] MEDS: AMIODARONE / D5W 360 MG/200 ML BAG IV SCH (23:11)
--- NOTE | 2022-05-21 23:13 | Communication Note ---
Date of Service: May 21, 2022 Overnight developments 05/21, 940PM SBP 70s as per RN. Patient asymptomatic. 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 provider 05/22, 3AM Made aware by RN of 2 a.m. lab draw results Repeat lactic acid 2.4 (from 3) Hemoglobin 7 (from 8.3 from 7.7) No abdominal pain, no overt bleeding as per RN FOBT positive AP Progressive anemia, occult GI bleed Improving lactic acidosis Ongoing IV heparin infusion for A. fib thromboembolic prophylaxis Hold IV heparin Additional IV albumin for lactic acidosis, continue midodrine Recheck labs at 7 AM with blood type and screen Defer decision regarding blood transfusion and GI consultation for occult GI bleed to AM provider.
[2022-05-21] MEDS ORDERED: CEFEPIME 2,000 MG in SYRINGE 0 ML IV ONE (23:30)
[2022-05-22] MEDS: INSULIN ASPART PER UNIT SC SCH ×6 (00:58→21:40)
[2022-05-22 02:24] LABS: Eosinophils # (auto) 0.08 K/uL (0-0.50); Eosinophils % (auto) 0.9 %; Hematocrit (blood only) 23.3 % (34.1-44.9); Immature Granulocytes # (auto) 0.05 K/uL (0.00-0.02); Immature Granulocytes % (auto) 0.5 %; Lymphocytes # (auto) 0.79 K/uL (1.2-3.4); Lymphocytes % (auto) 8.6 %; Mean Corpuscular Hemoglobin 31.4 pg (25.0-34.0); Mean Corpuscular Volume 104.5 fL (80.0-100.0); Mean Platelet Volume 12.3 fL (9.4-12.3); Monocytes # (auto) 0.36 K/uL (0.24-0.82); Monocytes % (auto) 3.9 %; Neutrophils # (auto) 7.86 K/uL (1.4-6.5); Neutrophils % (auto) 86.1 %; Nucleated RBC % (auto) 1.1 %; Platelet Count 134 K/uL (130-400); RDW Coefficient of Variation 23.7 % (11.5-14.5); RDW Standard Deviation 82.8 fL (36.4-46.3); Red Blood Count 2.23 M/uL (3.93-5.22); White Blood Count 9.14 K/ul (4.8-10.8)
[2022-05-22 02:44] LABS: BUN Creatinine Ratio 13.4 (10-20); Calcium 7.8 mg/dl (8.5-10.1); Creatinine Clr Calc Pharmacy 22.2 ml/min; Est GFR (African American) 21.9 ml/min; Est GFR (Non-African American) 18.9 ml/min; Magnesium 1.8 mg/dl (1.7-2.4); Phosphorus 2.2 mg/dl (2.5-4.9); Potassium 3.4 mmol/L (3.5-5.1)
[2022-05-22 02:52] LABS: Partial Thromboplastin Ratio 2.7
[2022-05-22 03:04] LABS: Partial Thromboplastin Time 74.2 Seconds (21.0-31.0)
[2022-05-22 03:15] LABS: Anisocytosis Present; Polychromasia 1+; Target Cells 1+
[2022-05-22] MEDS ORDERED: MAGNESIUM SULFATE / D5W 1 GM/100 ML BAG IV ONE (03:18)
[2022-05-22] MEDS ORDERED: ALBUMIN 25% 12.5 GM/50 ML VIAL IV ONE (03:18)
[2022-05-22] MEDS: AMIODARONE / D5W 360 MG/200 ML BAG IV SCH ×2 (03:43→14:58)
[2022-05-22] MEDS: LEVOTHYROXINE SODIUM 150 MCG TABLET PO SCH (04:49)
[2022-05-22] MEDS: MIDODRINE HCL 10 MG TAB PO SCH ×3 (04:51→17:16)
[2022-05-22 07:34] LABS: Hematocrit (blood only) 24.2 % (34.1-44.9); Hemoglobin 7.2 g/dl (12.0-16.0)
[2022-05-22] MEDS ORDERED: POTASSIUM CHLORIDE CRTAB 20 MEQ TABCR PO ONE (07:42)
[2022-05-22 07:46] LABS: Partial Thromboplastin Ratio 1.5; Partial Thromboplastin Time 42.5 Seconds (21.0-31.0)
[2022-05-22] MEDS: LANTUS PER UNIT CHARGE SQ SCH ×2 (08:09→21:41)
[2022-05-22] MEDS: FLUCONAZOLE 100 MG TAB PO SCH ×2 (08:10→10:14)
[2022-05-22] MEDS: HYDROCORTISONE 10 MG TAB PO SCH ×3 (08:11→18:32)
[2022-05-22] MEDS: PANTOprazole 40 MG TAB PO SCH ×2 (08:12→10:14)
[2022-05-22] MEDS: GABAPENTIN 100 MG CAP PO SCH ×2 (08:12→10:13)
[2022-05-22] MEDS: ONDANSETRON INJ 2 MG/ML 2 ML VIAL IV PRN (08:35)
[2022-05-22] MEDS: METOPROLOL SUCC 25MG EXT REL TAB PO SCH (10:14)
--- NOTE | 2022-05-22 12:16 | Cardiology Progress Note ---
Date of Service May 22, 2022 Assessment & Plan (1) Preop cardiovascular exam: (2) Sepsis: (3) Thrombocytopenia: (4) Anemia: (5) Ulcer of sacral region, stage 4: (6) Osteomyelitis: (7) Decubitus ulcer of sacral area: (8) Acute hyponatremia: (9) End-stage renal disease (ESRD): (10) Chronic radiation proctitis: (11) Radiation necrosis of skin and subcutaneous: (12) Uterine cancer: (13) Breast CA: (14) Cancer of anorectum: (15) Diabetes: (16) Coronary artery disease: (17) Heart failure with preserved ejection fraction, borderline, class II: (18) PAD (peripheral artery disease): Plan This is a complex patient. Late yesterday afternoon after dialysis she develope d atrial fibrillation with RVR. The patient was started on an amiodarone infusion and spontaneously converted to normal sinus rhythm. At this point I would continue the amiodarone infusion for an additional 24 hours. At some point we will have to switch her over to oral medications. The heparin has been stopped due to history of bleeding and a drop in her blood counts this morning. Admission and Anticipated Discharge Date Admission Date: May 14, 2022 Subjective The patient is resting comfortably. Review of Systems Review of Systems: Review of Systems: See HPI for pertinent positives. All other 10 point review of systems are negative. Physical Exam Physical Exam: General: no acute distress and stated age Head: normocephalic, no masses, lesions, tenderness or abnormalities Eyes: conjunctiva are pink and non-injected, sclera clear Neck: supple, no adenopathy, no bruits, normal jugular venous pulse, no hepatojugular reflux Chest: normal shape and normal respiratory effort Lungs: clear to auscultation and percussion Cardiac Exam: - regular rate & rhythm, no murmurs gallops or rubs - normal S1, normal S2 Pulses: 2(+) throughout Abdomen: abdomen soft, non-tender, no abnormal masses and no hepatosplenomegaly Musculoskeletal: no gait disturbance, no joint inflammation, no deforming arthritis Extremities: no edema and no cyanosis Neuro: grossly normal exam Results & Data ([facility]) Vital Signs (Past 12 Hours) Vital Signs Temp Pulse Resp BP Pulse Ox O2 Del Method O2 Flow Rate 05/22/22 10:30 79 11 L 98 05/22/22 10:23 94/46 L 05/22/22 10:23 84 6 L 95 05/22/22 10:00 79 16 100 05/22/22 09:30 76 2 L 100 05/22/22 09:23 100/47 L 05/22/22 09:23 79 11 L 100 05/22/22 09:00 79 12 100 05/22/22 08:30 86 15 94 05/22/22 08:23 89 18 91 05/22/22 08:23 99/56 L 05/22/22 08:18 104/47 L 05/22/22 08:00 36.6 C 87 14 93 1 05/22/22 07:30 89 14 94 05/22/22 07:23 105/47 L 05/22/22 07:23 83 21 95 05/22/22 07:00 78 9 L 95 05/22/22 06:30 81 16 94 05/22/22 06:23 80 11 L 95 05/22/22 06:23 105/47 L 05/22/22 06:00 82 16 95 05/22/22 05:30 80 14 96 05/22/22 05:23 107/46 L 05/22/22 05:23 83 21 96 05/22/22 05:00 86 13 92 05/22/22 08:00 84 05/22/22 07:11 Nasal Cannula 1 05/22/22 04:30 84 12 93 05/22/22 04:23 94/44 L 05/22/22 04:23 85 13 93 05/22/22 04:00 92 05/22/22 03:30 88 18 93 05/22/22 03:23 87 23 93 05/22/22 03:23 93/48 L 05/22/22 03:00 85 1 L 93 05/22/22 02:30 87 0 L 92 05/22/22 02:23 94/53 L 05/22/22 02:23 87 3 L 91 05/22/22 02:00 87 0 L 92 05/22/22 01:30 85 0 L 92 05/22/22 01:23 85 0 L 93 05/22/22 01:23 98/46 L 05/22/22 01:00 88 21 94 05/22/22 00:30 86 16 93 05/22/22 00:23 88 16 94 05/22/22 00:23 102/50 L 05/22/22 05:00 37 C Laboratory Results Laboratory Results - last 24 hr 05/21/22 05/21/22 05/21/22 16:22 17:19 17:19 WBC 11.30 H RBC 2.63 L Hgb 8.3 L Hct 27.2 L MCV 103.4 H MCH 31.6 MCHC 30.5 L RDW Std Deviation 84.0 H RDW Coeff of Josh 23.9 H Plt Count 141 MPV 12.0 Immature Gran % (Auto) Neut % (Auto) Lymph % (Auto) Garvin % (Auto) Eos % (Auto) Baso % (Auto) Neut # (Auto) Lymph # (Auto) Garvin # (Auto) Eos # (Auto) Baso # (Auto) Immature Gran # (Auto) Absolute Nucleated RBC 0.11 H Nucleated RBC % (auto) 1.0 Polychromasia Anisocytosis Target Cells APTT PTT Ratio Sodium Potassium Chloride Carbon Dioxide Anion Gap BUN Creatinine Est Cr Clr Drug Dosing Est GFR ( Amer) Est GFR (Non-Af Amer) BUN/Creatinine Ratio Glucose POC Glucose 298 H Lactate Calcium Phosphorus Magnesium Total Bilirubin AST ALT Alkaline Phosphatase Troponin I High Sens Total Protein Albumin Globulin Albumin/Globulin Ratio TSH 2.043 Stool Occult Bld Scrn Blood Type Antibody Screen 05/21/22 05/21/22 05/21/22 17:19 17:19 19:24 WBC RBC Hgb Hct MCV MCH MCHC RDW Std Deviation RDW Coeff of Josh Plt Count MPV Immature Gran % (Auto) Neut % (Auto) Lymph % (Auto) Garvin % (Auto) Eos % (Auto) Baso % (Auto) Neut # (Auto) Lymph # (Auto) Garvin # (Auto) Eos # (Auto) Baso # (Auto) Immature Gran # (Auto) Absolute Nucleated RBC Nucleated RBC % (auto) Polychromasia Anisocytosis Target Cells APTT 36.1 H PTT Ratio 1.3 Sodium 131 L Potassium 3.9 D Chloride 98 Carbon Dioxide 24 Anion Gap 9 BUN 28 H Creatinine 2.32 H D Est Cr Clr Drug Dosing 24.3 Est GFR ( Amer) 24.4 Est GFR (Non-Af Amer) 21.1 BUN/Creatinine Ratio 12.1 Glucose 334 H* POC Glucose Lactate Calcium 7.7 L Phosphorus Magnesium 1.8 Total Bilirubin 1.1 H AST 81 H ALT 34 Alkaline Phosphatase 573 H Troponin I High Sens 306.8 H* D Cancelled Total Protein 5.6 L Albumin 2.2 L Globulin 3.4 Albumin/Globulin Ratio 0.6 L TSH Stool Occult Bld Scrn Blood Type Antibody Screen 05/21/22 05/21/22 05/21/22 20:49 22:21 23:19 WBC RBC Hgb Hct MCV MCH MCHC RDW Std Deviation RDW Coeff of Josh Plt Count MPV Immature Gran % (Auto) Neut % (Auto) Lymph % (Auto) Garvin % (Auto) Eos % (Auto) Baso % (Auto) Neut # (Auto) Lymph # (Auto) Garvin # (Auto) Eos # (Auto) Baso # (Auto) Immature Gran # (Auto) Absolute Nucleated RBC Nucleated RBC % (auto) Polychromasia Anisocytosis Target Cells APTT PTT Ratio Sodium Potassium Chloride Carbon Dioxide Anion Gap BUN Creatinine Est Cr Clr Drug Dosing Est GFR ( Amer) Est GFR (Non-Af Amer) BUN/Creatinine Ratio Glucose POC Glucose 331 H* 326 H* Lactate 3.0 H* Calcium Phosphorus Magnesium Total Bilirubin AST ALT Alkaline Phosphatase Troponin I High Sens Total Protein Albumin Globulin Albumin/Globulin Ratio TSH Stool Occult Bld Scrn Blood Type Antibody Screen 05/22/22 05/22/22 05/22/22 00:38 02:14 02:14 WBC RBC Hgb Hct MCV MCH MCHC RDW Std Deviation RDW Coeff of Josh Plt Count MPV Immature Gran % (Auto) Neut % (Auto) Lymph % (Auto) Garvin % (Auto) Eos % (Auto) Baso % (Auto) Neut # (Auto) Lymph # (Auto) Garvin # (Auto) Eos # (Auto) Baso # (Auto) Immature Gran # (Auto) Absolute Nucleated RBC Nucleated RBC % (auto) Polychromasia Anisocytosis Target Cells APTT 74.2 H* PTT Ratio 2.7 Sodium Potassium Chloride Carbon Dioxide Anion Gap BUN Creatinine Est Cr Clr Drug Dosing Est GFR ( Amer) Est GFR (Non-Af Amer) BUN/Creatinine Ratio Glucose POC Glucose 317 H* Lactate 2.4 H* Calcium Phosphorus Magnesium Total Bilirubin AST ALT Alkaline Phosphatase Troponin I High Sens Total Protein Albumin Globulin Albumin/Globulin Ratio TSH Stool Occult Bld Scrn Blood Type Antibody Screen 05/22/22 05/22/22 05/22/22 02:18 02:18 03:59 WBC 9.14 RBC 2.23 L Hgb 7.0 L Hct 23.3 L MCV 104.5 H MCH 31.4 MCHC 30.0 L RDW Std Deviation 82.8 H RDW Coeff of Josh 23.7 H Plt Count 134 MPV 12.3 Immature Gran % (Auto) 0.5 Neut % (Auto) 86.1 Lymph % (Auto) 8.6 Garvin % (Auto) 3.9 Eos % (Auto) 0.9 Baso % (Auto) 0.0 Neut # (Auto) 7.86 H Lymph # (Auto) 0.79 L Garvin # (Auto) 0.36 Eos # (Auto) 0.08 Baso # (Auto) 0.00 Immature Gran # (Auto) 0.05 H Absolute Nucleated RBC 0.10 H Nucleated RBC % (auto) 1.1 Polychromasia 1+ Anisocytosis Present Target Cells 1+ APTT PTT Ratio Sodium 130 L Potassium 3.4 L Chloride 99 Carbon Dioxide 23 Anion Gap 8 BUN 34 H Creatinine 2.54 H Est Cr Clr Drug Dosing 22.2 Est GFR ( Amer) 21.9 Est GFR (Non-Af Amer) 18.9 BUN/Creatinine Ratio 13.4 Glucose 296 H POC Glucose Lactate Calcium 7.8 L Phosphorus 2.2 L Magnesium 1.8 Total Bilirubin AST ALT Alkaline Phosphatase Troponin I High Sens Total Protein Albumin Globulin Albumin/Globulin Ratio TSH Stool Occult Bld Scrn Positive A Blood Type Antibody Screen 05/22/22 05/22/22 05/22/22 04:29 07:06 07:19 WBC RBC Hgb Hct MCV MCH MCHC RDW Std Deviation RDW Coeff of Josh Plt Count MPV Immature Gran % (Auto) Neut % (Auto) Lymph % (Auto) Garvin % (Auto) Eos % (Auto) Baso % (Auto) Neut # (Auto) Lymph # (Auto) Garvin # (Auto) Eos # (Auto) Baso # (Auto) Immature Gran # (Auto) Absolute Nucleated RBC Nucleated RBC % (auto) Polychromasia Anisocytosis Target Cells APTT 42.5 H PTT Ratio 1.5 Sodium Potassium Chloride Carbon Dioxide Anion Gap BUN Creatinine Est Cr Clr Drug Dosing Est GFR ( Amer) Est GFR (Non-Af Amer) BUN/Creatinine Ratio Glucose POC Glucose 298 H 223 H Lactate Calcium Phosphorus Magnesium Total Bilirubin AST ALT Alkaline Phosphatase Troponin I High Sens Total Protein Albumin Globulin Albumin/Globulin Ratio TSH Stool Occult Bld Scrn Blood Type Antibody Screen 05/22/22 05/22/22 05/22/22 07:19 07:19 07:19 WBC RBC Hgb 7.2 L Hct 24.2 L MCV MCH MCHC RDW Std Deviation RDW Coeff of Josh Plt Count MPV Immature Gran % (Auto) Neut % (Auto) Lymph % (Auto) Garvin % (Auto) Eos % (Auto) Baso % (Auto) Neut # (Auto) Lymph # (Auto) Garvin # (Auto) Eos # (Auto) Baso # (Auto) Immature Gran # (Auto) Absolute Nucleated RBC Nucleated RBC % (auto) Polychromasia Anisocytosis Target Cells APTT PTT Ratio Sodium Potassium Chloride Carbon Dioxide Anion Gap BUN Creatinine Est Cr Clr Drug Dosing Est GFR ( Amer) Est GFR (Non-Af Amer) BUN/Creatinine Ratio Glucose POC Glucose Lactate 2.1 H* Calcium Phosphorus Magnesium Total Bilirubin AST ALT Alkaline Phosphatase Troponin I High Sens Total Protein Albumin Globulin Albumin/Globulin Ratio TSH Stool Occult Bld Scrn Blood Type A Positive Antibody Screen NEGATIVE 05/22/22 11:03 WBC RBC Hgb Hct MCV MCH MCHC RDW Std Deviation RDW Coeff of Josh Plt Count MPV Immature Gran % (Auto) Neut % (Auto) Lymph % (Auto) Garvin % (Auto) Eos % (Auto) Baso % (Auto) Neut # (Auto) Lymph # (Auto) Garvin # (Auto) Eos # (Auto) Baso # (Auto) Immature Gran # (Auto) Absolute Nucleated RBC Nucleated RBC % (auto) Polychromasia Anisocytosis Target Cells APTT PTT Ratio Sodium Potassium Chloride Carbon Dioxide Anion Gap BUN Creatinine Est Cr Clr Drug Dosing Est GFR ( Amer) Est GFR (Non-Af Amer) BUN/Creatinine Ratio Glucose POC Glucose 223 H Lactate Calcium Phosphorus Magnesium Total Bilirubin AST ALT Alkaline Phosphatase Troponin I High Sens Total Protein Albumin Globulin Albumin/Globulin Ratio TSH Stool Occult Bld Scrn Blood Type Antibody Screen Medications Administered Current Inpatient Medications Atorvastatin Calcium (Atorvastatin 40 Mg Tab) 40 mg PO QAM ROSA M Stop: 06/14/22 08:59 Last Admin: 05/20/22 08:01 Dose: 40 mg Collagenase (Collagenase Oint 30 Gm Tube) 1 appln EXT DAILY ROSA M Stop: 06/14/22 08:59 Last Admin: 05/19/22 07:35 Dose: Not Given Dextrose (Dextrose 50% 50 Ml Syringe) 25 - 50 ml IV UD PRN; Protocol PRN Reason: Hypoglycemia Protocol Stop: 06/13/22 18:24 Last Admin: 05/16/22 11:55 Dose: 50 ml Fluconazole (Fluconazole 100 Mg Tab) 200 mg PO QAM [facility] Stop: 07/03/22 08:59 Last Admin: 05/22/22 10:14 Dose: 200 mg Gabapentin (Gabapentin 100 Mg Cap) 100 mg PO QAM ROSA M Stop: 06/14/22 08:59 Last Admin: 05/22/22 10:13 Dose: 100 mg Gabapentin (Gabapentin 100 Mg Cap) 200 mg PO HS [facility] Stop: 06/18/22 20:59 Last Admin: 05/20/22 20:56 Dose: 200 mg Glucagon (Glucagon For Inj 1 Mg Vial) 1 mg SQ UD PRN; Protocol PRN Reason: Hypoglycemia Protocol Stop: 06/13/22 18:24 Glucose (Glucose 40% Gel 15 Gm Tube) 15 - 30 gm PO UD PRN; Protocol PRN Reason: Hypoglycemia Protocol Stop: 06/13/22 18:24 Glucose (Glucose 10 Tab/Tube) 4 - 8 tab PO UD PRN; Protocol PRN Reason: Hypoglycemia Treatment Stop: 06/13/22 18:24 Hydrocortisone (Hydrocortisone 10 Mg Tab) 20 mg PO BIDM ROSA M; Taper Stop: 05/24/22 07:59 Last Admin: 05/22/22 10:13 Dose: 20 mg Daptomycin 550 mg/ Syringe 11 mls @ 5.5 mls/min IV MoWe@1400 ROSA M; Protocol Stop: 07/05/22 13:59 Daptomycin 800 mg/ Syringe 16 mls @ 8 mls/min IV Fr@1400 ROSA M; Protocol Stop: 07/02/22 13:59 Last Admin: 05/21/22 13:54 Dose: 8 mls/min Amiodarone HCl/Dextrose (Nexterone / D5w) 360 mg in 200 mls @ 16.667 mls/hr IV .Q12H ROSA M Stop: 06/20/22 23:29 Last Infusion: 05/22/22 07:01 Dose: 0.5 mg/min, 16.7 mls/hr Heparin Sodium/Dextrose (Heparin Sodium/Dextrose) 25,000 units in 500 mls @ 23 mls/hr IV .[id number] [facility]; Protocol Stop: 06/20/22 19:14 Last Titration: 05/22/22 03:08 Dose: 1,100 units/hr, 22 mls/hr Cefepime HCl 500 mg/ Syringe 5.65 mls @ 5.5 mls/min IV Q24H [facility]; Protocol Stop: 07/03/22 22:59 Insulin Aspart (Insulin Aspart Per Unit) 0 units SC ACHS [facility]; Protocol Stop: 06/20/22 11:29 Last Admin: 05/22/22 08:09 Dose: 13 units Insulin Glargine (Lantus Per Unit Charge) 15 units SQ BID [facility]; Protocol Stop: 06/21/22 08:59 Last Admin: 05/22/22 08:09 Dose: 15 units Latanoprost (Latanoprost 0.005% Op Soln 2.5 Ml Btl) 1 drops OP QPM [facility] Stop: 06/13/22 20:59 Last Admin: 05/21/22 21:24 Dose: 1 drops Levothyroxine Sodium (Levothyroxine Sodium 150 Mcg Tablet) 150 mcg PO DAILYBB [facility] Stop: 06/21/22 06:29 Last Admin: 05/22/22 04:49 Dose: 150 mcg Metoprolol Succinate (Metoprolol Succ 25mg Ext Rel Tab) 25 mg PO QAM [facility] Stop: 06/14/22 08:59 Last Admin: 05/22/22 10:14 Dose: Not Given Midodrine (Midodrine Hcl 10 Mg Tab) 10 mg PO TID@0800,1200,1700 [facility] Stop: 06/21/22 03:19 Last Admin: 05/22/22 12:05 Dose: 10 mg Miscellaneous (Carbohydrates For Hypoglycemia ) 15 - 30 gm PO UD PRN PRN Reason: Hypoglycemia Protocol Stop: 06/13/22 18:24 Nitroglycerin (Nitroglycerin Sl 0.4 Mg/Tab Tab) 0.4 mg SL PRN PRN PRN Reason: Chest Pain Stop: 06/17/22 18:44 Ondansetron HCl (Ondansetron Inj 2 Mg/Ml 2 Ml Vial) 4 mg IV Q6H PRN PRN Reason: Nausea Stop: 06/13/22 18:19 Last Admin: 05/22/22 08:35 Dose: 4 mg Oxycodone HCl (Oxycodone Hcl Ir 5 Mg Tab (Immediate Release)) 2.5 mg PO DAILY PRN PRN Reason: Pain Stop: 05/31/22 03:56 Last Admin: 05/21/22 10:40 Dose: 2.5 mg Pantoprazole Sodium (Pantoprazole 40 Mg Tab) 40 mg PO DAILY ROSA M Stop: 06/14/22 08:59 Last Admin: 05/22/22 10:14 Dose: 40 mg Ropinirole HCl (Ropinirole Hcl 0.25 Mg Tablet) 0.25 mg PO HS ROSA M Stop: 06/17/22 20:59 Last Admin: 05/21/22 20:52 Dose: 0.25 mg (1) Decubitus ulcer of sacral area Pressure injury stage: stage 4 Qualified Code(s): L89.154 - Pressure ulcer of sacral region, stage 4 (2) Osteomyelitis Osteomyelitis location: unspecified site Osteomyelitis type: unspecified type Qualified Code(s): M86.9 - Osteomyelitis, unspecified
--- NOTE | 2022-05-22 13:49 | Hospitalist Progress Note ---
Date of Service May 22, 2022 Assessment & Plan (1) Sepsis: Plan: - patient with tachycardia, leukocytosis, lactic acidosis - source likely stage IV sacral ulcer with likely underlying osteomyelitis - broad spectrum abx - surgical consult-recommended surgical debridement, however, patient declined - ICU at this time - requiring phenylephrine support for HD, however, not requiring this support any longer. - debridement planned for 05/20 in am which she declined, Santyl also stopped. - ID consulted as jail abx will be needed. -overnight abx expanded to include cefepime -fluconazole also added this am in line with recent discharge recommendations from [facility] [place]. 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 Santyl has been held. -otherwise plan as above. (3) New onset atrial fibrillation: Plan: complex patient flipped into afib with rvr on domenic of 05/21 was hypotensive with some improvement in hemodynamics with 1L fluid amio bolus and drip started cont amio for now per cardiology (4) Ulcer of sacral region, stage 4: Plan: plan as above. (5) Radiation necrosis of skin and subcutaneous: Plan: - plan as above (6) Acute hyponatremia: Plan: - likely due to sepsis and decrease po intake -improving, cont to monitor. -nephro following in this complex ESRD patient. (7) End-stage renal disease (ESRD): Plan: - has been on HD for the past year, per patient - HD catheter in right chest - no evidence of infection at catheter site - renal consulted - normal schedule is MWF -this past week was undergoing daily treatments with 3-3.5L UF removed each time on pressor support in preparation for surgical debridement of wound which she ultimately declined. (8) Diabetes: Plan: - on insulin at home -cont insulin protocol per ICU -at inpatient goal after adjustments overnight -cautiously giving glargine with hypoglycemic episode earlier this admission. - diabetic diet (9) Hypothyroid: Plan: - patient is hypothyroid on labs with TSH 22, FT4 <0.25 - unclear if patient taking medication appropriately - after dosing her with levothyroxine here she is euthyroid with TSH 2.0 (10) Anemia: Plan: - chronic anemia in the setting of ESRD and GI losses (reported but not observed) and phlebotomy - was reportedly getting ?EPO injections with HD per Patient - continue EPO per renal - no signs of active bleeding at this time -Hb drop occurred, however, wondering if this may have had something to do with hemoconcentration with so much UF being removed and then after she went into afib, we added back 1L NSS and rehydrated her prior to the "drop". -no active bleeding although +FOBT noted overnight. - will monitor for now (11) Thrombocytopenia: Plan: - unclear chronicity - likely consumption in sepsis, ESRD, chronic illness - no signs of bleeding -resolved (12) Coagulopathy: Plan: - patient not on warfarin - in the setting of sepsis -DDx includes but not limited to DIC (less likely with elevated fibrinogen) vs poor nutrition. -cont to monitor Plan DVT ppx: heparin SC, autoanticoagulated. Code Status: changed to DNR after update by palliative doctor today. She is not quite ready for hospice at this point and [facility]. Anabel Escobar DO [facility] Hospitalist Admission and Anticipated Discharge Date Admission Date: May 14, 2022 Subjective 66 yo F admitted for sepsis 2/2 osteomyelitis of Stage IV sacral ulcer after leaving [facility] AMA. after just a few hours on the amiodarone last evening she converted back to sinus rhythm She feels fine today, but has variuos complaints Her said that she would rather than be bedbound When I asked the patient if she wanted to get out of bed she answered with indifference She is tolerating PO except had an episode of gagging after a potassium pill this am and threw up many of her meds and some breakfast suggested an allergy to something, however, primary RN who witnessed the event suggested the potassium was the trigger. Overngiht, her antibiotics were expanded to include cefepime Per ID recommendations from previous hospital discharge, fluconazole was salso added back to her regimen today There is a clear interaction between this amd amio and a daily EKG was ordered to monitor QTc Still awaiting ID consult likely Tuesday There was also a concern for Hb drop, however, there has been no overt bleeding today and she has remained hemodynamically stable. Review of Systems Review of Systems: All systems were reviewed and negative except as indicated in subjective above. Physical Exam Physical Exam: CONSTITUTIONAL: obese, edematous , vitals as above, generally NAD, easily falls asleep EYES: normal conjunctivae, no scleral icterus ENT: external ear and nose normal, MMM NECK: trachea midline, RESPIRATORY: clear to auscultation bilaterally, no crackles, rales or wheezes, normal respiratory effort CARDIOVASCULAR: regular rate and rhythm, S1 and 2 heard without murmurs, gallops or rubs, no JVD, trace peripheral edema in bilateral lower extremities. CHEST: inspection of chest reveals a HD catheter in right anterior chest and an US guided PIV in the upper right arm. GASTROINTESTINAL: soft, nontender, ND, +colostomy with formed stool present-no gross blood seen. no guarding MUSCULOSKELETAL: generalized weakness, head is normocephalic and atraumatic, SKIN: warm and dry, sacral ulcer was not viewed because of patient's limited mobility. Resolving rash on bilateral lower extremities. NEUROLOGIC: CN 2-12 grossly intact, no sensory deficit, normal cognition, normal speech, no tremor PSYCHIATRIC: alert cooperative and oriented to person, place and time. Results & Data Results & Data ([facility]) Vital Signs (Past 12 Hours) Vital Signs Temp Pulse Resp BP Pulse Ox O2 Del Method O2 Flow Rate 05/22/22 10:30 79 11 L 98 05/22/22 10:23 94/46 L 05/22/22 10:23 84 6 L 95 05/22/22 10:00 79 16 100 05/22/22 09:30 76 2 L 100 05/22/22 09:23 100/47 L 05/22/22 09:23 79 11 L 100 05/22/22 09:00 79 12 100 05/22/22 08:30 86 15 94 05/22/22 08:23 89 18 91 05/22/22 08:23 99/56 L 05/22/22 08:18 104/47 L 05/22/22 08:00 36.6 C 87 14 93 1 05/22/22 07:30 89 14 94 05/22/22 07:23 105/47 L 05/22/22 07:23 83 21 95 05/22/22 07:00 78 9 L 95 05/22/22 06:30 81 16 94 05/22/22 06:23 80 11 L 95 05/22/22 06:23 105/47 L 05/22/22 06:00 82 16 95 05/22/22 05:30 80 14 96 05/22/22 05:23 107/46 L 05/22/22 05:23 83 21 96 05/22/22 05:00 86 13 92 05/22/22 08:00 84 05/22/22 07:11 Nasal Cannula 1 05/22/22 04:30 84 12 93 05/22/22 04:23 94/44 L 05/22/22 04:23 85 13 93 05/22/22 04:00 92 05/22/22 03:30 88 18 93 05/22/22 03:23 87 23 93 05/22/22 03:23 93/48 L 05/22/22 03:00 85 1 L 93 05/22/22 02:30 87 0 L 92 05/22/22 02:23 94/53 L 05/22/22 02:23 87 3 L 91 05/22/22 02:00 87 0 L 92 05/22/22 05:00 37 C Laboratory Results Short CBC 05/21/22 05/22/22 05/22/22 Range/Units 17:19 02:18 07:19 WBC 11.30 H 9.14 (4.8-10.8) K/ul Hgb 8.3 L 7.0 L 7.2 L (12.0-16.0) g/dl Hct 27.2 L 23.3 L 24.2 L (34.1-44.9) % Plt Count 141 134 (130-400) K/uL BMP 05/21/22 05/22/22 17:19 02:18 Sodium 131 L 130 L Potassium 3.9 D 3.4 L Chloride 98 99 Carbon Dioxide 24 23 BUN 28 H 34 H Creatinine 2.32 H D 2.54 H Glucose 334 H* 296 H Calcium 7.7 L 7.8 L Liver Function 05/21/22 Range/Units 17:19 Total Bilirubin 1.1 H (0.2-1.0) mg/dl AST 81 H (13-39) U/L ALT 34 (7-52) U/L Alkaline Phosphatase 573 H (34-104) U/L Albumin 2.2 L (3.4-5.0) gm/dl Medications Administered Current Inpatient Medications Atorvastatin Calcium ([facility]vastatin 40 Mg Tab) [facility] [place] [place]: 06/14/22 08:59 Last Admin: 05/20/22 08:01 Dose: 40 mg Collagenase (Collagenase Oint 30 Gm Tube) [address] [facility] Stop: 06/14/22 08:59 Last Admin: 05/19/22 07:35 Dose: Not Given Dextrose (Dextrose 50% 50 Ml Syringe) 25 - 50 ml IV UD PRN; Protocol PRN Reason: Hypoglycemia Protocol Stop: 06/13/22 18:24 Last Admin: 05/16/22 11:55 Dose: 50 ml Fluconazole (Fluconazole 100 Mg Tab) 200 mg PO [facility] Stop: 07/03/22 08:59 Last Admin: 05/22/22 10:14 Dose: 200 mg Gabapentin (Gabapentin 100 Mg Cap) 100 mg PO [facility] Stop: 06/14/22 08:59 Last Admin: 05/22/22 10:13 Dose: 100 mg Gabapentin (Gabapentin 100 Mg Cap) 200 mg PO [facility] Stop: 06/18/22 20:59 Last Admin: 05/20/22 20:56 Dose: 200 mg Glucagon (Glucagon For Inj 1 Mg Vial) 1 mg SQ UD PRN; Protocol PRN Reason: Hypoglycemia Protocol Stop: 06/13/22 18:24 Glucose (Glucose 40% Gel 15 Gm Tube) 15 - 30 gm PO UD PRN; Protocol PRN Reason: Hypoglycemia Protocol Stop: 06/13/22 18:24 Glucose (Glucose 10 Tab/Tube) 4 - 8 tab PO UD PRN; Protocol PRN Reason: Hypoglycemia Treatment Stop: 06/13/22 18:24 Hydrocortisone (Hydrocortisone 10 Mg Tab) [address] [facility]; Taper Stop: 05/24/22 07:59 Last Admin: 05/22/22 10:13 Dose: 20 mg Daptomycin 550 mg/ Syringe 11 mls @ 5.5 mls/min IV MoWe@1400 [facility]A M; Protocol Stop: 07/05/22 13:59 Daptomycin 800 mg/ Syringe 16 mls @ 8 mls/min IV Fr@1400 [facility] M; Protocol Stop: 07/02/22 13:59 Last Admin: 05/21/22 13:54 Dose: 8 mls/min Amiodarone HCl/Dextrose (Nexterone / D5w) 360 mg in 200 mls @ 16.667 mls/hr IV .Q12H [facility] Stop: 06/20/22 23:29 Last Infusion: 05/22/22 07:01 Dose: 0.5 mg/min, 16.7 mls/hr Heparin Sodium/Dextrose (Heparin Sodium/Dextrose) 25,000 units in 500 mls @ 23 mls/hr IV .[id number] [facility]; Protocol Stop: 06/20/22 19:14 Last Titration: 05/22/22 03:08 Dose: 1,100 units/hr, 22 mls/hr Cefepime HCl 500 mg/ Syringe 5.65 mls @ 5.5 mls/min IV Q24H [facility]; Protocol Stop: 07/03/22 22:59 Insulin Aspart (Insulin Aspart Per Unit) [address] [facility]; Protocol Stop: 06/20/22 11:29 Last Admin: 05/22/22 13:01 Dose: 3 units Insulin Glargine (Lantus Per Unit Charge) [address] [facility]; Protocol Stop: 06/21/22 08:59 Last Admin: 05/22/22 08:09 Dose: 15 units Latanoprost (Latanoprost 0.005% Op Soln 2.5 Ml Btl) [address] [facility] Stop: 06/13/22 20:59 Last Admin: 05/21/22 21:24 Dose: 1 drops Levothyroxine Sodium (Levothyroxine Sodium 150 Mcg Tablet) [address] [facility] Stop: 06/21/22 06:29 Last Admin: 05/22/22 04:49 Dose: 150 mcg Metoprolol Succinate (Metoprolol Succ 25mg Ext Rel Tab) [address] [facility] Stop: 06/14/22 08:59 Last Admin: 05/22/22 10:14 Dose: Not Given Midodrine (Midodrine Hcl 10 Mg Tab) 10 mg PO TID@0800,1200,1700 [facility] Stop: 06/21/22 03:19 Last Admin: 05/22/22 12:05 Dose: 10 mg Miscellaneous (Carbohydrates For Hypoglycemia ) 15 - 30 gm PO UD PRN PRN Reason: Hypoglycemia Protocol Stop: 06/13/22 18:24 Nitroglycerin (Nitroglycerin Sl 0.4 Mg/Tab Tab) 0.4 mg SL PRN PRN PRN Reason: Chest Pain Stop: 06/17/22 18:44 Ondansetron HCl (Ondansetron Inj 2 Mg/Ml 2 Ml Vial) 4 mg IV Q6H PRN PRN Reason: Nausea Stop: 06/13/22 18:19 Last Admin: 05/22/22 08:35 Dose: 4 mg Oxycodone HCl (Oxycodone Hcl Ir 5 Mg Tab (Immediate Release)) 2.5 mg PO DAILY PRN PRN Reason: Pain Stop: 05/31/22 03:56 Last Admin: 05/21/22 10:40 Dose: 2.5 mg Pantoprazole Sodium (Pantoprazole 40 Mg Tab) 40 mg PO DAILY [facility] Stop: 06/14/22 08:59 Last Admin: 05/22/22 10:14 Dose: 40 mg Ropinirole HCl (Ropinirole Hcl 0.25 Mg Tablet) 0.25 mg PO HS [facility] Stop: 06/17/22 20:59 Last Admin: 05/21/22 20:52 Dose: 0.25 mg (1) Osteomyelitis Osteomyelitis location: unspecified site Osteomyelitis type: unspecified type Qualified Code(s): M86.9 - Osteomyelitis, unspecified
[2022-05-22] MEDS: LATANOPROST 0.005% OP SOLN 2.5 ML BTL OP SCH (21:32)
[2022-05-22] MEDS: rOPINIRole HCL 0.25 MG TABLET PO SCH (21:35)
[2022-05-23] MEDS: CEFEPIME 500 MG in SYRINGE 0 ML IV SCH ×2 (00:02→22:23)
[2022-05-23] MEDS: AMIODARONE / D5W 360 MG/200 ML BAG IV SCH (02:15)
[2022-05-23] MEDS: LEVOTHYROXINE SODIUM 150 MCG TABLET PO SCH (05:53)
[2022-05-23 05:58] LABS: Hematocrit (blood only) 24.3 % (34.1-44.9); Hemoglobin 7.5 g/dl (12.0-16.0); Mean Corpuscular Hemoglobin 31.1 pg (25.0-34.0); Mean Corpuscular Hgb Conc 30.9 g/dL (32.0-36.0); Mean Corpuscular Volume 100.8 fL (80.0-100.0); Mean Platelet Volume 12.5 fL (9.4-12.3); Nucleated RBC # (auto) 0.04 K/uL (0-0); Nucleated RBC % (auto) 0.4 %; Platelet Count 157 K/uL (130-400); RDW Coefficient of Variation 22.5 % (11.5-14.5); RDW Standard Deviation 79.7 fL (36.4-46.3); Red Blood Count 2.41 M/uL (3.93-5.22); White Blood Count 10.93 K/ul (4.8-10.8)
[2022-05-23 06:24] LABS: BUN Creatinine Ratio 13.7 (10-20); Calcium 8.5 mg/dl (8.5-10.1); Creatinine Clr Calc Pharmacy 18.5 ml/min; Est GFR (African American) 17.5 ml/min; Est GFR (Non-African American) 15.1 ml/min; Potassium 3.9 mmol/L (3.5-5.1)
[2022-05-23] MEDS: HYDROCORTISONE 10 MG TAB PO SCH (08:33)
[2022-05-23] MEDS: PANTOprazole 40 MG TAB PO SCH (08:33)
[2022-05-23] MEDS: GABAPENTIN 100 MG CAP PO SCH (08:33)
[2022-05-23] MEDS: MIDODRINE HCL 10 MG TAB PO SCH ×3 (08:33→17:11)
[2022-05-23] MEDS: FLUCONAZOLE 100 MG TAB PO SCH (08:34)
[2022-05-23] MEDS: INSULIN ASPART PER UNIT SC SCH ×4 (08:48→21:30)
[2022-05-23] MEDS: LANTUS PER UNIT CHARGE SQ SCH ×2 (08:50→21:30)
[2022-05-23] MEDS: METOPROLOL SUCC 25MG EXT REL TAB PO SCH (11:10)
--- NOTE | 2022-05-23 12:59 | Cardiology Progress Note ---
Date of Service May 23, 2022 Assessment & Plan (1) Preop cardiovascular exam: (2) Sepsis: (3) Thrombocytopenia: (4) Anemia: (5) Ulcer of sacral region, stage 4: (6) Osteomyelitis: (7) Decubitus ulcer of sacral area: (8) Acute hyponatremia: (9) End-stage renal disease (ESRD): (10) Chronic radiation proctitis: (11) Radiation necrosis of skin and subcutaneous: (12) Uterine cancer: (13) Breast CA: (14) Cancer of anorectum: (15) Diabetes: (16) Coronary artery disease: (17) Heart failure with preserved ejection fraction, borderline, class II: (18) PAD (peripheral artery disease): Plan The patient is maintaining sinus rhythm. I think we can switch her over to oral amiodarone today. Admission and Anticipated Discharge Date Admission Date: May 14, 2022 Subjective The patient is resting comfortably. No new cardiac complaints. Review of Systems Review of Systems: Review of Systems: See HPI for pertinent positives. All other 10 point review of systems are negative. Physical Exam Physical Exam: General: no acute distress and stated age Head: normocephalic, no masses, lesions, tenderness or abnormalities Eyes: conjunctiva are pink and non-injected, sclera clear Neck: supple, no adenopathy, no bruits, normal jugular venous pulse, no hepatojugular reflux Chest: normal shape and normal respiratory effort Lungs: clear to auscultation and percussion Cardiac Exam: - regular rate & rhythm, no murmurs gallops or rubs - normal S1, normal S2 Pulses: 2(+) throughout Abdomen: abdomen soft, non-tender, no abnormal masses and no hepatosplenomegaly Musculoskeletal: no gait disturbance, no joint inflammation, no deforming arthritis Extremities: no edema and no cyanosis Neuro: grossly normal exam Results & Data ([facility]) Vital Signs (Past 12 Hours) Vital Signs Temp Pulse Resp BP Pulse Ox 05/23/22 08:00 71 05/23/22 04:30 71 17 96 05/23/22 04:23 69 12 05/23/22 04:23 128/48 L 05/23/22 04:00 70 16 96 05/23/22 03:30 66 15 97 05/23/22 03:23 110/51 L 05/23/22 03:23 68 16 97 05/23/22 03:00 65 16 98 05/23/22 02:30 67 18 99 05/23/22 02:23 94/52 L 05/23/22 02:23 72 20 95 05/23/22 02:00 64 16 100 05/23/22 01:30 66 7 L 100 05/23/22 01:23 107/54 L 05/23/22 01:23 65 7 L 100 05/23/22 01:00 67 14 99 05/23/22 04:35 36.5 C Laboratory Results Laboratory Results - last 24 hr 05/22/22 05/22/22 05/23/22 16:10 21:28 05:21 WBC 10.93 H RBC 2.41 L Hgb 7.5 L Hct 24.3 L MCV 100.8 H MCH 31.1 MCHC 30.9 L RDW Std Deviation 79.7 H RDW Coeff of Josh 22.5 H Plt Count 157 MPV 12.5 H Absolute Nucleated RBC 0.04 H Nucleated RBC % (auto) 0.4 Sodium Potassium Chloride Carbon Dioxide Anion Gap BUN Creatinine Est Cr Clr Drug Dosing Est GFR ( Amer) Est GFR (Non-Af Amer) BUN/Creatinine Ratio Glucose POC Glucose 200 H 295 H Calcium 05/23/22 05/23/22 05/23/22 05:21 07:31 07:32 WBC RBC Hgb Hct MCV MCH MCHC RDW Std Deviation RDW Coeff of Josh Plt Count MPV Absolute Nucleated RBC Nucleated RBC % (auto) Sodium 129 L Potassium 3.9 Chloride 98 Carbon Dioxide 21 Anion Gap 10 BUN 42 H Creatinine 3.06 H D Est Cr Clr Drug Dosing 18.5 Est GFR ( Amer) 17.5 Est GFR (Non-Af Amer) 15.1 BUN/Creatinine Ratio 13.7 Glucose 299 H POC Glucose 306 H* 305 H* Calcium 8.5 05/23/22 05/23/22 05/23/22 11:28 11:29 11:30 WBC RBC Hgb Hct MCV MCH MCHC RDW Std Deviation RDW Coeff of Josh Plt Count MPV Absolute Nucleated RBC Nucleated RBC % (auto) Sodium Potassium Chloride Carbon Dioxide Anion Gap BUN Creatinine Est Cr Clr Drug Dosing Est GFR ( Amer) Est GFR (Non-Af Amer) BUN/Creatinine Ratio Glucose POC Glucose 363 H* 307 H* 330 H* Calcium Medications Administered Current Inpatient Medications Amiodarone HCl (Amiodarone 200 Mg Tab) 200 mg PO TIDM [facility] Stop: 06/22/22 16:59 Atorvastatin Calcium (Atorvastatin 40 Mg Tab) 40 mg PO QAM [facility] Stop: 06/14/22 08:59 Last Admin: 05/20/22 08:01 Dose: 40 mg Collagenase (Collagenase Oint 30 Gm Tube) 1 appln EXT DAILY [facility] Stop: 06/14/22 08:59 Last Admin: 05/19/22 07:35 Dose: Not Given Dextrose (Dextrose 50% 50 Ml Syringe) 25 - 50 ml IV UD PRN; Protocol PRN Reason: Hypoglycemia Protocol Stop: 06/13/22 18:24 Last Admin: 05/16/22 11:55 Dose: 50 ml Fluconazole (Fluconazole 100 Mg Tab) 200 mg PO QAM [facility] Stop: 07/03/22 08:59 Last Admin: 05/23/22 08:34 Dose: 200 mg Gabapentin (Gabapentin 100 Mg Cap) 100 mg PO QAM [facility] Stop: 06/14/22 08:59 Last Admin: 05/23/22 08:33 Dose: 100 mg Gabapentin (Gabapentin 100 Mg Cap) 200 mg PO HS [facility] Stop: 06/18/22 20:59 Last Admin: 05/20/22 20:56 Dose: 200 mg Glucagon (Glucagon For Inj 1 Mg Vial) 1 mg SQ UD PRN; Protocol PRN Reason: Hypoglycemia Protocol Stop: 06/13/22 18:24 Glucose (Glucose 40% Gel 15 Gm Tube) 15 - 30 gm PO UD PRN; Protocol PRN Reason: Hypoglycemia Protocol Stop: 06/13/22 18:24 Glucose (Glucose 10 Tab/Tube) 4 - 8 tab PO UD PRN; Protocol PRN Reason: Hypoglycemia Treatment Stop: 06/13/22 18:24 Hydrocortisone (Hydrocortisone 10 Mg Tab) 20 mg PO DAILY [facility]; Taper Stop: 05/24/22 07:59 Last Admin: 05/23/22 08:33 Dose: 20 mg Daptomycin 550 mg/ Syringe 11 mls @ 5.5 mls/min IV MoWe@1400 [facility] M; Protocol Stop: 07/05/22 13:59 Daptomycin 800 mg/ Syringe 16 mls @ 8 mls/min IV Fr@1400 [facility]; Protocol Stop: 07/02/22 13:59 Last Admin: 05/21/22 13:54 Dose: 8 mls/min Heparin Sodium/Dextrose (Heparin Sodium/Dextrose) 25,000 units in 500 mls @ 23 mls/hr IV .[id number] [facility]; Protocol Stop: 06/20/22 19:14 Last Titration: 05/22/22 03:08 Dose: 1,100 units/hr, 22 mls/hr Cefepime HCl 500 mg/ Syringe 5.65 mls @ 5.5 mls/min IV Q24H [facility]; Protocol Stop: 07/03/22 22:59 Last Admin: 05/23/22 00:02 Dose: 5.5 mls/min Insulin Aspart (Insulin Aspart Per Unit) 0 units SC ACHS [facility]; Protocol Stop: 06/20/22 11:29 Last Admin: 05/23/22 12:38 Dose: 14 units Insulin Glargine (Lantus Per Unit Charge) 20 units SQ BID [facility]; Protocol Stop: 06/22/22 08:59 Last Admin: 05/23/22 08:50 Dose: 20 units Latanoprost (Latanoprost 0.005% Op Soln 2.5 Ml Btl) 1 drops OP QPM [facility] Stop: 06/13/22 20:59 Last Admin: 05/22/22 21:32 Dose: 1 drops Levothyroxine Sodium (Levothyroxine Sodium 150 Mcg Tablet) 150 mcg PO DAILYBB [facility] Stop: 06/21/22 06:29 Last Admin: 05/23/22 05:53 Dose: 150 mcg Metoprolol Succinate (Metoprolol Succ 25mg Ext Rel Tab) 25 mg PO QAM [facility] Stop: 06/14/22 08:59 Last Admin: 05/23/22 11:10 Dose: Not Given Midodrine (Midodrine Hcl 10 Mg Tab) 10 mg PO TID@0800,1200,1700 [facility] Stop: 06/21/22 03:19 Last Admin: 05/23/22 12:39 Dose: 10 mg Miscellaneous (Carbohydrates For Hypoglycemia ) 15 - 30 gm PO UD PRN PRN Reason: Hypoglycemia Protocol Stop: 06/13/22 18:24 Nitroglycerin (Nitroglycerin Sl 0.4 Mg/Tab Tab) 0.4 mg SL PRN PRN PRN Reason: Chest Pain Stop: 06/17/22 18:44 Ondansetron HCl (Ondansetron Inj 2 Mg/Ml 2 Ml Vial) 4 mg IV Q6H PRN PRN Reason: Nausea Stop: 06/13/22 18:19 Last Admin: 05/22/22 08:35 Dose: 4 mg Oxycodone HCl (Oxycodone Hcl Ir 5 Mg Tab (Immediate Release)) 2.5 mg PO DAILY PRN PRN Reason: Pain Stop: 05/31/22 03:56 Last Admin: 05/21/22 10:40 Dose: 2.5 mg Pantoprazole Sodium (Pantoprazole 40 Mg Tab) 40 mg PO DAILY [facility] Stop: 06/14/22 08:59 Last Admin: 05/23/22 08:33 Dose: 40 mg Ropinirole HCl (Ropinirole Hcl 0.25 Mg Tablet) 0.25 mg PO HS [facility] Stop: 06/17/22 20:59 Last Admin: 05/22/22 21:35 Dose: 0.25 mg (1) Decubitus ulcer of sacral area Pressure injury stage: stage 4 Qualified Code(s): L89.154 - Pressure ulcer of sacral region, stage 4 (2) Osteomyelitis Osteomyelitis location: unspecified site Osteomyelitis type: unspecified type Qualified Code(s): M86.9 - Osteomyelitis, unspecified
[2022-05-23] MEDS ORDERED: PHARMACY GLYCEMIC MGMT CONSULT PRN (17:06)
--- NOTE | 2022-05-23 17:28 | Hospitalist Progress Note ---
Date of Service May 23, 2022 Assessment & Plan (1) Sepsis: Plan: - patient with tachycardia, leukocytosis, lactic acidosis - source likely stage IV sacral ulcer with likely underlying osteomyelitis - broad spectrum abx - surgical consult-recommended surgical debridement, however, patient declined - ICU at this time - requiring phenylephrine support for HD, however, not requiring this support any longer. - debridement planned for 05/20 in am which she declined, Santyl also stopped. - ID consulted as group home abx will be needed. -overnight abx expanded to include cefepime -fluconazole also added this am in line with recent discharge recommendations from [facility] [place], [place]. 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 Santyl has been held. -otherwise plan as above. 05/23: Blood cultures taken 05/14, 05/17: Negative Continue daptomycin, cefepime, fluconazole (3) New onset atrial fibrillation: Plan: complex patient flipped into afib with rvr on domenic of 05/21 was hypotensive with some improvement in hemodynamics with 1L fluid amio bolus and drip started 05/23: Heart rate controlled Amiodarone increased to 200 mg p.o. 3 times daily Heparin drip continued Also on usual metoprolol XL 25 mg daily (4) Ulcer of sacral region, stage 4: Plan: plan as above. (5) Radiation necrosis of skin and subcutaneous: Plan: - plan as above (6) Acute hyponatremia: Plan: - likely due to sepsis and decrease po intake -improving, cont to monitor. -nephro following in this complex ESRD patient. 05/23: Sodium 130--129 Monitor (7) End-stage renal disease (ESRD): Plan: - has been on HD for the past year, per patient - HD catheter in right chest - no evidence of infection at catheter site - renal consulted - normal schedule is MWF -this past week was undergoing daily treatments with 3-3.5L UF removed each time on pressor support in preparation for surgical debridement of wound which she ultimately declined. 05/23: Nephrology on board (8) Diabetes: Plan: - on insulin at home -cont insulin protocol per ICU -at inpatient goal after adjustments overnight -cautiously giving glargine with hypoglycemic episode earlier this admission. - diabetic diet 05/23: Patient hyperglycemic in the 300s Insulin glargine increased to 20 mg twice daily This afternoon BG still in the 300s Nephrology was able to tolerate consulted (9) Hypothyroid: Plan: - patient is hypothyroid on labs with TSH 22, FT4 <0.25 - unclear if patient taking medication appropriately - after dosing her with levothyroxine here she is euthyroid with TSH 2.0 (10) Anemia: Plan: - chronic anemia in the setting of ESRD and GI losses (reported but not observed) and phlebotomy - was reportedly getting ?EPO injections with HD per Patient - continue EPO per renal - no signs of active bleeding at this time -Hb drop occurred, however, wondering if this may have had something to do with hemoconcentration with so much UF being removed and then after she went into afib, we added back 1L NSS and rehydrated her prior to the "drop". -no active bleeding although +FOBT noted overnight. - will monitor for now 05/23: Hemoglobin remaining stable 7.2, now 7.5 No signs of active bleeding (11) Thrombocytopenia: Plan: - unclear chronicity - likely consumption in sepsis, ESRD, chronic illness - no signs of bleeding -resolved (12) Coagulopathy: Plan: - patient not on warfarin - in the setting of sepsis -DDx includes but not limited to DIC (less likely with elevated fibrinogen) vs poor nutrition. -cont to monitor 05/20: INR 2.0 05/22: PTT 42.5 Plan DVT ppx: Heparin drip Code Status: changed to DNR after update by palliative doctor today. She is not quite ready for hospice at this point and wants to keep going wt hemodialysis for now. Jose L Kapoor MD Admission and Anticipated Discharge Date Admission Date: May 14, 2022 Subjective Follow-up for ESRD, A. fib and RVR, etc. Seen resting in bed, watching TV, comfortable States she feels okay overall no chest pain, dyspnea, palpitations, dizziness No abdominal pain, nausea vomiting, change urination or bowel movement No other symptoms Review of Systems Review of Systems: all noted and negative except for above Physical Exam Physical Exam: General- oriented x 3, not in distress, speaks in sentences with no effort or accessory muscle use Eyes- anicteric Neck- no JVD Lungs- clear breath sounds bilaterally, no rales/wheezes Heart- normal rate, irregularly irregular rhythm; no murmurs Abdomen- normal bowel sounds, nondistended, soft, nontender Extremities- no pretibial edema, no calf tenderness Neuro- alert, oriented x 3; no gross focal neurologic deficits Skin- warm & dry Results & Data Results & Data ([facility]) Vital Signs (Past 12 Hours) Vital Signs Temp Pulse Pulse Resp BP BP Pulse Ox 05/23/22 15:23 36.8 C 74 15 108/67 99 05/23/22 15:04 05/23/22 14:13 79 0 L 05/23/22 13:23 120/53 L 05/23/22 13:23 72 10 L 05/23/22 12:23 117/68 05/23/22 12:23 75 5 L 05/23/22 12:00 77 10 L 97 05/23/22 11:23 78 29 H 94 05/23/22 11:23 110/51 L 05/23/22 10:23 112/48 L 05/23/22 10:23 77 15 05/23/22 10:00 79 13 98 05/23/22 09:23 107/53 L 05/23/22 09:23 75 16 05/23/22 08:23 74 15 05/23/22 08:23 108/62 05/23/22 08:00 37 C 76 17 97 05/23/22 07:23 68 8 L 05/23/22 07:23 117/59 L 05/23/22 06:23 116/61 05/23/22 06:23 67 14 100 05/23/22 06:00 69 18 97 05/23/22 08:00 71 O2 Del Method O2 Flow Rate 05/23/22 15:23 Nasal Cannula 1 05/23/22 15:04 Nasal Cannula 1 05/23/22 14:13 05/23/22 13:23 05/23/22 13:23 05/23/22 12:23 05/23/22 12:05/23/22 12:00 05/23/22 11:05/23/22 11:05/23/22 10:05/23/22 10:23 05/23/22 10:00 05/23/22 09:23 05/23/22 09:05/23/22 08:05/23/22 08:05/23/22 08:00 05/23/22 07:23 05/23/22 07:23 05/23/22 06:23 05/23/22 06:23 05/23/22 06:00 05/23/22 08:00 all noted and reviewed including below (1) Osteomyelitis Osteomyelitis location: unspecified site Osteomyelitis type: unspecified type Qualified Code(s): M86.9 - Osteomyelitis, unspecified
[2022-05-23] MEDS ORDERED: INSULIN HUMAN REGULAR PER UNIT 5 UNITS in SYRINGE 4.95 ML IV ONE (17:45)
--- NOTE | 2022-05-23 17:48 | Electrocardiogram Report ---
Test Reason : Blood Pressure : / mmHG Vent. Rate : 117 BPM Atrial Rate : 192 BPM P-R Int : 000 ms QRS Dur : 106 ms QT Int : 332 ms P-R-T Axes : 000 000 209 degrees QTc Int : 463 ms Atrial fibrillation with rapid ventricular response Low voltage QRS Cannot rule out Anterior infarct (cited on or before 18-MAY-2022) Nonspecific ST and T wave abnormality Abnormal ECG When compared with ECG of 18-MAY-2022 13:57, Atrial fibrillation has replaced Sinus rhythm Confirmed by Yg Zamora ([id number]) on 05/23/2022 5:48:08 PM Referred By: REFERRED SELF Confirmed By:Yg Zamora
[2022-05-23] MEDS: AMIODARONE 200 MG TAB PO SCH (17:50)
[2022-05-23] MEDS: oxyCODONE HCL IR 5 MG TAB (IMMEDIATE RELEASE) PO PRN (20:11)
[2022-05-23] MEDS: LATANOPROST 0.005% OP SOLN 2.5 ML BTL OP SCH (20:26)
--- NOTE | 2022-05-23 22:05 | Nephrology Progress Note ---
Date of Service May 23, 2022 Assessment & Plan (1) End-stage renal disease (ESRD): Plan: ESRD MWF at [facility] via dialysis catheter Last dialysed on 05/21 w/ 3.5L UF; 05/19 w/ 4L UF (no pressor); on 05/17 had 3L UF w/ pressor -Patient tolerating dialysis well . She is planned for 4 hours and to get UF of 3-4 L tomorrow; if OR available and pt for OR we can shorten tx -max dose epo w/ tx >>>ensure pharmacy dosing daptomycin post HD (2) Osteomyelitis: Plan: - awaiting surgical debridement > surgery evaluating daily - Continue Daptomycin Admission and Anticipated Discharge Date Admission Date: May 14, 2022 Subjective seen on rounds 1430; no acute interval clinical events; moved out of ICU; still w/ edema but improved; no sob; states she'll do surgical debridement "if it helps" Review of Systems Review of Systems: All systems reviewed & are unremarkable except as noted in Subjective Physical Exam Constitutional: well developed, well nourished, + ill appearing, + obese, + frail appearing and cooperative; no acute distress Eyes: EOM intact bilaterally ENMT: Ears: no external ear abnormality Nose: no external nose abnormality Mouth: + dry oral mucous membranes Neck: no nuchal rigidity Respiratory: normal respiratory effort (on 2L 02nc) and able to speak in complete sentences; no labored breathing, does not use accessory muscles, no cough and not tachypneic Auscultation: + diminished lung sounds Cardiovascular: Rate/Rhythm: regular rate, regular rhythm and + tachycardic Extremities: + edema (2+ BLE) Gastrointestinal (Abdomen): Inspection/Auscultation: abdomen normal to inspection (w/ colostomy present) and normal bowel sounds Percussion/Palpation: abdomen soft; abdomen nontender Musculoskeletal: Extremities: + abnormal strength Skin: no rashes, warm and dry Psychiatric: Orientation: oriented to person, oriented to place and cooperative Affect: euthymic affect and + anxious affect Results & Data ([facility]) Vital Signs (Past 12 Hours) Vital Signs Temp Pulse Pulse Resp BP BP Pulse Ox 05/23/22 19:57 36.4 C L 74 18 104/55 L 95 05/23/22 15:23 36.8 C 74 15 108/67 99 05/23/22 15:04 07/31/22 14:13 79 0 L 05/23/22 13:23 120/53 L 05/23/22 13:23 72 10 L 05/23/22 12:23 117/68 05/23/22 12:23 75 5 L 05/23/22 12:00 77 10 L 97 05/23/22 11:23 78 29 H 94 05/23/22 11:23 110/51 L 05/23/22 10:23 112/48 L 05/23/22 10:23 77 15 O2 Del Method O2 Flow Rate 05/23/22 19:57 Nasal Cannula 1 05/23/22 15:23 Nasal Cannula 1 05/23/22 15:04 Nasal Cannula 1 05/23/22 14:13 05/23/22 13:23 05/23/22 13:23 05/23/22 12:23 05/23/22 12:23 05/23/22 12:00 05/23/22 11:23 05/23/22 11:23 05/23/22 10:23 05/23/22 10:23 Laboratory Results 05/23/22 05:21 05/23/22 05:21 (1) Osteomyelitis Osteomyelitis location: unspecified site Osteomyelitis type: unspecified type Qualified Code(s): M86.9 - Osteomyelitis, unspecified
[2022-05-23] MEDS: rOPINIRole HCL 0.25 MG TABLET PO SCH (22:18)
[2022-05-24] MEDS: INSULIN ASPART PER UNIT SC SCH ×6 (00:10→21:10)
[2022-05-24] MEDS: LEVOTHYROXINE SODIUM 150 MCG TABLET PO SCH (06:35)
[2022-05-24] MEDS ORDERED: HEPARIN SOD (PORCINE) 1000 UNIT/ML IV ONE (07:00)
[2022-05-24] MEDS ORDERED: EPOETIN ALFA 20,000 UNITS/ML VIAL IV ONE (07:00)
[2022-05-24] MEDS ORDERED: SODIUM CHLORIDE 0.9% 1000ML 1,000 ML IV PRN (07:00)
[2022-05-24 07:37] LABS: INR 1.4 (0.9-1.1); Prothrombin Time 14.2 Seconds (9.0-12.0)
[2022-05-24] MEDS: GABAPENTIN 100 MG CAP PO SCH (09:37)
[2022-05-24] MEDS: AMIODARONE 200 MG TAB PO SCH ×3 (09:37→18:25)
[2022-05-24] MEDS: MIDODRINE HCL 10 MG TAB PO SCH ×3 (09:47→18:25)
--- NOTE | 2022-05-24 10:03 | Nephrology Progress Note ---
Date of Service May 24, 2022 Assessment & Plan Admission and Anticipated Discharge Date Admission Date: May 14, 2022 Subjective Assessment & Plan (1) End-stage renal disease (ESRD): Plan: ESRD MWF at [facility] via dialysis catheter Last dialyzed on 05/21 w/ 3.5L UF; 05/19 w/ 4L UF (no pressor); on 05/17 had 3L UF w/ pressor -Patient tolerating dialysis well . She is planned for 4 hours and to get UF of 3-4 L today with midodrine 10 mg -max dose epo w/ tx Hopefully tomorrow will be a better day to do surgery after Dialysis today (2) Osteomyelitis: Plan: - awaiting surgical debridement > surgery evaluating daily - Continue Daptomycin Subjective No acute interval clinical events. still w/ edema but improved. for dialysis later today. States she'll do surgical debridement "if it helps" but is also DNR and DNI now Review of Systems Review of Systems: All systems reviewed & are unremarkable except as noted in Subjective Physical Exam Constitutional: well developed, well nourished, + ill appearing, + obese, + frail appearing and cooperative; no acute distress Eyes: EOM intact bilaterally ENMT: Ears: no external ear abnormality Nose: no external nose abnormality Mouth: + dry oral mucous membranes Neck: no nuchal rigidity Respiratory: normal respiratory effort (on 2L 02nc) and able to speak in complete sentences; no labored breathing, does not use accessory muscles, no cough and not tachypneic Auscultation: + diminished lung sounds Cardiovascular: Rate/Rhythm: regular rate, regular rhythm and + tachycardic Extremities: + edema (2+ BLE) Gastrointestinal (Abdomen): Inspection/Auscultation: abdomen normal to inspection (w/ colostomy present) and normal bowel sounds Percussion/Palpation: abdomen soft; abdomen nontender Musculoskeletal: Extremities: + abnormal strength Skin: no rashes, warm and dry Psychiatric: Orientation: oriented to person, oriented to place and cooperative Affect: euthymic affect and + anxious affect Results & Data ([facility]) Vital Signs (Past 12 Hours) Vital Signs Temp Pulse Pulse Pulse Resp BP BP 05/24/22 09:31 05/24/22 07:30 36.6 C 81 130/67 05/24/22 03:00 36.6 C 73 20 120/69 05/24/22 00:18 36.3 C L 81 110/68 05/23/22 22:59 74 Pulse Ox O2 Del Method O2 Flow Rate 05/24/22 09:31 99 Nasal Cannula 1 05/24/22 07:30 78 L 05/24/22 03:00 98 Nasal Cannula 1 05/24/22 00:18 95 Nasal Cannula 1 05/23/22 22:59
[2022-05-24] MEDS: PANTOprazole 40 MG TAB PO SCH (10:34)
--- NOTE | 2022-05-24 12:08 | Cardiology Progress Note ---
Date of Service May 24, 2022 Assessment & Plan (1) Preop cardiovascular exam: (2) Sepsis: (3) Thrombocytopenia: (4) Anemia: (5) Ulcer of sacral region, stage 4: (6) Osteomyelitis: (7) Decubitus ulcer of sacral area: (8) Acute hyponatremia: (9) End-stage renal disease (ESRD): (10) Chronic radiation proctitis: (11) Radiation necrosis of skin and subcutaneous: (12) Uterine cancer: (13) Breast CA: (14) Cancer of anorectum: (15) Diabetes: (16) Coronary artery disease: (17) Heart failure with preserved ejection fraction, borderline, class II: (18) PAD (peripheral artery disease): Plan The patient is maintaining sinus rhythm. I would continue amiodarone 200 mg 3 times daily through today and then tomorrow go to twice daily. Otherwise from a cardiac standpoint she is stable. Admission and Anticipated Discharge Date Admission Date: May 14, 2022 Subjective The patient undergoing dialysis. No complaints today. Review of Systems Review of Systems: Review of Systems: See HPI for pertinent positives. All other 10 point review of systems are negative. Physical Exam Physical Exam: General: no acute distress and stated age Head: normocephalic, no masses, lesions, tenderness or abnormalities Eyes: conjunctiva are pink and non-injected, sclera clear Neck: supple, no adenopathy, no bruits, normal jugular venous pulse, no hepatojugular reflux Chest: normal shape and normal respiratory effort Lungs: clear to auscultation and percussion Cardiac Exam: - regular rate & rhythm, no murmurs gallops or rubs - normal S1, normal S2 Pulses: 2(+) throughout Abdomen: abdomen soft, non-tender, no abnormal masses and no hepatosplenomegaly Musculoskeletal: no gait disturbance, no joint inflammation, no deforming arthritis Extremities: no edema and no cyanosis Neuro: grossly normal exam Results & Data ([facility]) Vital Signs (Past 12 Hours) Vital Signs Temp Pulse Pulse Pulse Pulse Resp BP 05/24/22 12:00 80 108/49 L 05/24/22 11:30 76 109/51 L 05/24/22 11:00 76 112/52 L 05/24/22 10:49 78 115/54 L 05/24/22 10:41 36.7 C 81 78 05/24/22 08:30 08/01/22 08:30 76 05/24/22 09:31 05/24/22 07:30 36.6 C 81 05/24/22 03:00 36.6 C 73 20 05/24/22 00:18 36.3 C L 81 BP BP Pulse Ox O2 Del Method O2 Flow Rate 05/24/22 12:00 05/24/22 11:30 05/24/22 11:00 05/24/22 10:49 05/24/22 10:41 05/24/22 08:30 Nasal Cannula 1 05/24/22 08:30 05/24/22 09:31 99 Nasal Cannula 1 05/24/22 07:30 130/67 98 05/24/22 03:00 120/69 98 Nasal Cannula 1 05/24/22 00:18 110/68 95 Nasal Cannula 1 Laboratory Results Laboratory Results - last 24 hr 05/23/22 05/23/22 05/23/22 16:33 18:40 18:44 PT INR POC Glucose 317 H* 45 L* 298 H 05/23/22 05/23/22 05/24/22 18:46 21:19 00:01 PT INR POC Glucose 315 H* 273 H 211 H 05/24/22 05/24/22 05/24/22 04:01 07:05 07:10 PT 14.2 H INR 1.4 H POC Glucose 157 H 142 H 05/24/22 11:11 PT INR POC Glucose 108 H Medications Administered Current Inpatient Medications Amiodarone HCl (Amiodarone 200 Mg Tab) 200 mg PO TIDM ROSA M Stop: 06/22/22 16:59 Last Admin: 05/24/22 09:37 Dose: 200 mg Atorvastatin Calcium (Atorvastatin 40 Mg Tab) 40 mg PO QAM ROSA M Stop: 06/14/22 08:59 Last Admin: 05/20/22 08:01 Dose: 40 mg Collagenase (Collagenase Oint 30 Gm Tube) 1 appln EXT DAILY ROSA M Stop: 06/14/22 08:59 Last Admin: 05/19/22 07:35 Dose: Not Given Dextrose (Dextrose 50% 50 Ml Syringe) 25 - 50 ml IV UD PRN; Protocol PRN Reason: Hypoglycemia Protocol Stop: 06/13/22 18:24 Last Admin: 05/16/22 11:55 Dose: 50 ml Fluconazole (Fluconazole 100 Mg Tab) 200 mg PO QAM [facility] Stop: 07/03/22 08:59 Last Admin: 05/23/22 08:34 Dose: 200 mg Gabapentin (Gabapentin 100 Mg Cap) 100 mg PO QAM [facility] Stop: 06/14/22 08:59 Last Admin: 05/24/22 09:37 Dose: 100 mg Gabapentin (Gabapentin 100 Mg Cap) 200 mg PO [facility] Stop: 06/18/22 20:59 Last Admin: 05/20/22 20:56 Dose: 200 mg Glucagon (Glucagon For Inj 1 Mg Vial) 1 mg SQ UD PRN; Protocol PRN Reason: Hypoglycemia Protocol Stop: 06/13/22 18:24 Glucose (Glucose 40% Gel 15 Gm Tube) 15 - 30 gm PO UD PRN; Protocol PRN Reason: Hypoglycemia Protocol Stop: 06/13/22 18:24 Glucose (Glucose 10 Tab/Tube) 4 - 8 tab PO UD PRN; Protocol PRN Reason: Hypoglycemia Treatment Stop: 06/13/22 18:24 Daptomycin 550 mg/ Syringe 11 mls @ 5.5 mls/min IV MoWe@1400 ROSA M; Protocol Stop: 07/05/22 13:59 Daptomycin 800 mg/ Syringe 16 mls @ 8 mls/min IV Fr@1400 ROSA M; Protocol Stop: 07/02/22 13:59 Last Admin: 05/21/22 13:54 Dose: 8 mls/min Heparin Sodium/Dextrose (Heparin Sodium/Dextrose) 25,000 units in 500 mls @ 23 mls/hr IV .[id number] ROSA M; Protocol Stop: 06/20/22 19:14 Last Titration: 05/23/22 13:20 Dose: Infused Cefepime HCl 500 mg/ Syringe 5.65 mls @ 5.5 mls/min IV Q24H ROSA M; Protocol Stop: 07/03/22 22:59 Last Admin: 05/23/22 22:23 Dose: 5.5 mls/min Sodium Chloride (Nss 1000ml) 1,000 mls @ 0 mls/hr IV .Q0M PRN PRN Reason: For Hemodialysis Use ONLY Stop: 05/24/22 12:59 Insulin Aspart (Insulin Aspart Per Unit) 0 units SC [facility]; Protocol Stop: 06/20/22 11:29 Last Admin: 05/24/22 09:36 Dose: 6 units Latanoprost (Latanoprost 0.005% Op Soln 2.5 Ml Btl) 1 drops OP QPM ROSA M Stop: 06/13/22 20:59 Last Admin: 05/23/22 20:26 Dose: 1 drops Levothyroxine Sodium (Levothyroxine Sodium 150 Mcg Tablet) 150 mcg PO DAILYBB [facility] Stop: 06/21/22 06:29 Last Admin: 05/24/22 06:35 Dose: 150 mcg Metoprolol Succinate (Metoprolol Succ 25mg Ext Rel Tab) 25 mg PO QAM ROSA M Stop: 06/14/22 08:59 Last Admin: 05/23/22 11:10 Dose: Not Given Midodrine (Midodrine Hcl 10 Mg Tab) 10 mg PO TID@0800,1200,1700 [facility] Stop: 06/21/22 03:19 Last Admin: 05/24/22 09:47 Dose: 10 mg Miscellaneous (Carbohydrates For Hypoglycemia ) 15 - 30 gm PO UD PRN PRN Reason: Hypoglycemia Protocol Stop: 06/13/22 18:24 Miscellaneous Information (Pharmacy Glycemic Mgmt Consult) 1 each N/A UD PRN PRN Reason: Consult Stop: 06/22/22 17:05 Nitroglycerin (Nitroglycerin Sl 0.4 Mg/Tab Tab) 0.4 mg SL PRN PRN PRN Reason: Chest Pain Stop: 06/17/22 18:44 Ondansetron HCl (Ondansetron Inj 2 Mg/Ml 2 Ml Vial) 4 mg IV Q6H PRN PRN Reason: Nausea Stop: 06/13/22 18:19 Last Admin: 05/22/22 08:35 Dose: 4 mg Oxycodone HCl (Oxycodone Hcl Ir 5 Mg Tab (Immediate Release)) 2.5 mg PO DAILY PRN PRN Reason: Pain Stop: 05/31/22 03:56 Last Admin: 05/23/22 20:11 Dose: 2.5 mg Pantoprazole Sodium (Pantoprazole 40 Mg Tab) 40 mg PO DAILY ROSA M Stop: 06/14/22 08:59 Last Admin: 05/24/22 10:34 Dose: 40 mg Ropinirole HCl (Ropinirole Hcl 0.25 Mg Tablet) 0.25 mg PO HS ROSA M Stop: 06/17/22 20:59 Last Admin: 05/23/22 22:18 Dose: 0.25 mg (1) Decubitus ulcer of sacral area Pressure injury stage: stage 4 Qualified Code(s): L89.154 - Pressure ulcer of sacral region, stage 4 (2) Osteomyelitis Osteomyelitis location: unspecified site Osteomyelitis type: unspecified type Qualified Code(s): M86.9 - Osteomyelitis, unspecified
[2022-05-24] MEDS: HEPARIN SOD (PORCINE) 1000 UNIT/ML IV SCH ×3 (12:34→16:53)
--- NOTE | 2022-05-24 12:35 | Electrocardiogram Report ---
Test Reason : Blood Pressure : / mmHG Vent. Rate : 075 BPM Atrial Rate : 075 BPM P-R Int : 186 ms QRS Dur : 104 ms QT Int : 396 ms P-R-T Axes : 039 032 231 degrees QTc Int : 442 ms Normal sinus rhythm Low voltage QRS Possible Anterolateral infarct (cited on or before 18-MAY-2022) Abnormal ECG When compared with ECG of 24-MAY-2022 06:09, (unconfirmed) No significant change was found Confirmed by Jona Hua ([id number]) on 05/24/2022 12:35:26 PM Referred By: REFERRED SELF Confirmed By:Dieudonne Hua
--- NOTE | 2022-05-24 14:30 | Pharmacy Report ---
Pharmacy Glycemic Short Note 2 - Date of Service May 24, 2022 - Glycemic Short BSG Results (Last 24 hours): 05/23/22 05/23/22 05/23/22 16:33 18:40 18:44 POC Glucose 317 H* 45 L* 298 H 05/23/22 05/23/22 05/24/22 18:46 21:19 00:01 POC Glucose 315 H* 273 H 211 H 05/24/22 05/24/22 05/24/22 04:01 07:10 11:11 POC Glucose 157 H 142 H 108 H OUTPATIENT ANTIDIABETIC REGIMEN: * Basaglar 42 units HS - reports following [place] [facility] ASSESSMENT: 05/24/22 * Patient's BSGs yesterday were [phone] mg/dL and overnight were 157- 147mg/dL. Fasting today is 142 mg/dL. * Steroids discontinued. Patient to receive dialysis today. * Patient received 92 units of insulin yesterday (40 units of Lantus and 52 units of bolus). * Since steroids discontinued, will change back to once daily Lantus. Patient was hypoglycemic with 15 units of lantus therefore will reduce to 10 units nightly. * Loosen Novolog since steroids d/c'ed. PLAN FOR INPATIENT GLYCEMIC CONTROL: * Hold outpatient oral diabetes medications * Basal insulin * Lantus 10 units Q HS * Bolus insulin * NovoLog per scale ACHS * Goal Range: Low 110 mg/dL - High 140 mg/dL * Correction Factor: 25 mg/dL/unit * Nutritional / Prandial insulin per carb ratio of 1 unit per 9 grams CHO consumed
[2022-05-24] MEDS: FLUCONAZOLE 100 MG TAB PO SCH (15:37)
[2022-05-24] MEDS: DAPTOmycin 550 MG in SYRINGE 0 ML IV SCH (15:44)
--- NOTE | 2022-05-24 16:18 | Hospitalist Progress Note ---
Date of Service May 24, 2022 Assessment & Plan (1) Sepsis: Plan: - patient with tachycardia, leukocytosis, lactic acidosis - source likely stage IV sacral ulcer with likely underlying osteomyelitis - broad spectrum abx - surgical consult-recommended surgical debridement, however, patient declined - ICU at this time - requiring phenylephrine support for HD, however, not requiring this support any longer. - debridement planned for 05/20 in am which she declined, Santyl also stopped. - ID consulted as longterm abx will be needed. -overnight abx expanded to include cefepime and fluconazole also addedin line with recent discharge recommendations from [facility]. 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 Santyl has been held. 05/24: Blood cultures taken 05/14, 05/17: Negative Continue daptomycin, cefepime, fluconazole wound care consulted awaiting ID consult (3) New onset atrial fibrillation: Plan: complex patient flipped into afib with rvr on domenic of 05/21 was hypotensive with some improvement in hemodynamics with 1L fluid amio bolus and drip started 05/24: remains in SR now Amiodarone increased to 200 mg p.o. 3 times daily, plan to decrease to BID tomorrow Heparin drip held Also on usual metoprolol XL 25 mg daily (4) Ulcer of sacral region, stage 4: Plan: plan as above. (5) Radiation necrosis of skin and subcutaneous: Plan: - plan as above (6) Acute hyponatremia: Plan: - likely due to sepsis and decrease po intake -improving, cont to monitor. -nephro following in this complex ESRD patient. Sodium 130--129 Monitor (7) End-stage renal disease (ESRD): Plan: - has been on HD for the past year, per patient - HD catheter in right chest - no evidence of infection at catheter site - normal schedule is MWF -this past week was undergoing daily treatments with 3-3.5L UF removed each time on pressor support in preparation for surgical debridement of wound which she ultimately declined. 05/24 Nephrology on board (8) Diabetes: Plan: - on insulin at home -cont insulin protocol per ICU 05/23: Patient hyperglycemic in the 300s Insulin glargine increased to 20 mg twice daily This afternoon BG still in the 300s 05/24 BSG's much better continue pharmacy glycemic control consult (9) Hypothyroid: Plan: - patient is hypothyroid on labs with TSH 22, FT4 <0.25 - unclear if patient taking medication appropriately - after dosing her with levothyroxine here she is euthyroid with TSH 2.0 (10) Anemia: Plan: - chronic anemia in the setting of ESRD and GI losses (reported but not observed) and phlebotomy - was reportedly getting ?EPO injections with HD per Patient - continue EPO per renal - no signs of active bleeding at this time -Hb drop occurred, however, wondering if this may have had something to do with hemoconcentration with so much UF being removed and then after she went into afib, we added back 1L NSS and rehydrated her prior to the "drop". -no active bleeding although +FOBT noted overnight. - will monitor for now Hemoglobin remaining stable 7.2, now 7.5 No signs of active bleeding (11) Thrombocytopenia: Plan: - unclear chronicity - likely consumption in sepsis, ESRD, chronic illness - no signs of bleeding -resolved (12) Coagulopathy: Plan: - patient not on warfarin - in the setting of sepsis -DDx includes but not limited to DIC (less likely with elevated fibrinogen) vs poor nutrition. -cont to monitor 05/20: INR 2.0 05/24: 1.4 Plan DVT ppx: Heparin drip on hold Code Status: changed to DNR after update by palliative doctor. She is not quite ready for hospice at this point and wants to keep going wtih hemodialysis for now. Jose L Kapoor MD Admission and Anticipated Discharge Date Admission Date: May 14, 2022 Subjective ff up for sacral ulcer, ESRD, etc seen resting in bed, comfortable states she feels fine overall sitting up s/p HD today denies pain no chest pain, dyspnea, palpitations, dizziness no fever/chills no other symptoms Review of Systems Review of Systems: all noted and negative except for above Physical Exam Physical Exam: General- oriented x 3, not in distress, speaks in sentences with no effort or accessory muscle use Eyes- anicteric Neck- no JVD Lungs- clear BS bilaterally, no rales/wheezes Heart- normal rate, irregularly irregular rhythm; no murmurs Abdomen- normal bowel sounds, nondistended, soft, nontender Extremities- no pretibial edema, no calf tenderness Neuro- alert, oriented x 3; no gross focal neurologic deficits Skin- warm & dry Results & Data Results & Data ([facility]) Vital Signs (Past 12 Hours) Vital Signs Temp Pulse Pulse Pulse Resp BP BP 05/24/22 14:51 36.5 C 81 104/99 05/24/22 15:30 36.5 C 82 14 105/64 05/24/22 14:30 77 97/29 L 05/24/22 14:15 77 103/40 L 05/24/22 14:00 80 82/39 L 05/24/22 13:30 82 101/54 L 05/24/22 13:00 78 99/44 L 05/24/22 11:30 36.8 C 70 20 05/24/22 12:30 69 90/45 L 05/24/22 12:00 80 108/49 L 05/24/22 11:30 76 109/51 L 05/24/22 11:00 76 112/52 L 05/24/22 10:49 78 115/54 L 05/24/22 10:41 36.7 C 81 78 05/24/22 08:30 05/24/22 08:30 76 05/24/22 09:31 05/24/22 07:30 36.6 C 81 BP Pulse Ox O2 Del Method O2 Flow Rate 05/24/22 14:51 05/24/22 15:30 97 Nasal Cannula 1 05/24/22 14:30 05/24/22 14:15 05/24/22 14:00 05/24/22 13:30 05/24/22 13:00 05/24/22 11:30 101/62 96 05/24/22 12:30 05/24/22 12:00 05/24/22 11:30 05/24/22 11:00 05/24/22 10:49 05/24/22 10:41 05/24/22 08:30 Nasal Cannula 1 05/24/22 08:30 05/24/22 09:31 99 Nasal Cannula 1 05/24/22 07:30 130/67 98 all noted and reviewed including below (1) Osteomyelitis Osteomyelitis location: unspecified site Osteomyelitis type: unspecified type Qualified Code(s): M86.9 - Osteomyelitis, unspecified
[2022-05-24] MEDS: METOPROLOL SUCC 25MG EXT REL TAB PO SCH (16:53)
[2022-05-24] MEDS: ADVANCED PROBIOTIC 1250 MG CAPSULE PO SCH (17:53)
[2022-05-24] MEDS ORDERED: LANTUS PER UNIT CHARGE SQ SCH (21:00)
[2022-05-24] MEDS: LATANOPROST 0.005% OP SOLN 2.5 ML BTL OP SCH (21:08)
[2022-05-24] MEDS: rOPINIRole HCL 0.25 MG TABLET PO SCH (21:08)
[2022-05-24] MEDS: oxyCODONE HCL IR 5 MG TAB (IMMEDIATE RELEASE) PO PRN (22:31)
[2022-05-24] MEDS: CEFEPIME 500 MG in SYRINGE 0 ML IV SCH (22:33)
[2022-05-25] MEDS: LEVOTHYROXINE SODIUM 150 MCG TABLET PO SCH (06:09)
[2022-05-25] MEDS: oxyCODONE HCL IR 5 MG TAB (IMMEDIATE RELEASE) PO PRN ×2 (07:37→19:52)
[2022-05-25] MEDS: METOPROLOL SUCC 25MG EXT REL TAB PO SCH (08:32)
[2022-05-25] MEDS: PANTOprazole 40 MG TAB PO SCH (08:33)
[2022-05-25] MEDS: ADVANCED PROBIOTIC 1250 MG CAPSULE PO SCH (08:33)
[2022-05-25] MEDS: FLUCONAZOLE 100 MG TAB PO SCH (08:33)
[2022-05-25] MEDS: GABAPENTIN 100 MG CAP PO SCH (08:33)
[2022-05-25] MEDS: MIDODRINE HCL 10 MG TAB PO SCH ×3 (08:33→18:55)
[2022-05-25] MEDS: INSULIN ASPART PER UNIT SC SCH ×3 (08:34→21:33)
[2022-05-25] MEDS: AMIODARONE 200 MG TAB PO SCH ×3 (09:11→18:55)
[2022-05-25] MEDS ORDERED: HYDROmorphone INJ 0.5 MG/0.5 ML SYR IV PRN (11:27)
--- NOTE | 2022-05-25 12:35 | Pharmacy Report ---
Pharmacy Glycemic Short Note 2 - Date of Service May 25, 2022 - Glycemic Short BSG Results (Last 24 hours): 05/24/22 05/24/22 05/25/22 16:14 20:02 07:13 POC Glucose 81 172 H 175 H 05/25/22 11:17 POC Glucose 186 H OUTPATIENT ANTIDIABETIC REGIMEN: * Basaglar 42 units HS - reports following [facility] ASSESSMENT: 05/25/22 * Patient's BSGs yesterday were [phone] mg/dL. Fasting today is 175 mg/dL. * Patient received 20 units of insulin yesterday (10 units of basal and 10 units of bolus). * Fasting trending upwards so increase basal to 15 units. * Continue Novolog. 05/24/22 * Patient's BSGs yesterday were [phone] mg/dL and overnight were 157- 147mg/dL. Fasting today is 142 mg/dL. * Steroids discontinued. Patient to receive dialysis today. * Patient received 92 units of insulin yesterday (40 units of Lantus and 52 units of bolus). * Since steroids discontinued, will change back to once daily Lantus. Patient was hypoglycemic with 15 units of lantus therefore will reduce to 10 units nightly. * Loosen Novolog since steroids d/c'ed. PLAN FOR INPATIENT GLYCEMIC CONTROL: * Hold outpatient oral diabetes medications * Basal insulin * Lantus 15 units Q HS * Bolus insulin * NovoLog per scale ACHS * Goal Range: Low 110 mg/dL - High 140 mg/dL * Correction Factor: 25 mg/dL/unit * Nutritional / Prandial insulin per carb ratio of 1 unit per 9 grams CHO consumed
--- NOTE | 2022-05-25 12:36 | Cardiology Progress Note ---
Date of Service May 25, 2022 Assessment & Plan (1) Preop cardiovascular exam: (2) Sepsis: (3) Thrombocytopenia: (4) Anemia: (5) Ulcer of sacral region, stage 4: (6) Osteomyelitis: (7) Decubitus ulcer of sacral area: (8) Acute hyponatremia: (9) End-stage renal disease (ESRD): (10) Chronic radiation proctitis: (11) Radiation necrosis of skin and subcutaneous: (12) Uterine cancer: (13) Breast CA: (14) Cancer of anorectum: (15) Diabetes: (16) Coronary artery disease: (17) Heart failure with preserved ejection fraction, borderline, class II: (18) PAD (peripheral artery disease): Plan The patient's telemetry indicates no atrial fibrillation over the past 24 hours. I reduced her amiodarone dose to 200 mg twice daily. Otherwise patient is clinically stable from a cardiac standpoint. Admission and Anticipated Discharge Date Admission Date: May 14, 2022 Subjective The patient is resting comfortably. Review of Systems Review of Systems: Review of Systems: See HPI for pertinent positives. All other 10 point review of systems are negative. Physical Exam Physical Exam: General: no acute distress and stated age Head: normocephalic, no masses, lesions, tenderness or abnormalities Eyes: conjunctiva are pink and non-injected, sclera clear Neck: supple, no adenopathy, no bruits, normal jugular venous pulse, no hepatojugular reflux Chest: normal shape and normal respiratory effort Lungs: clear to auscultation and percussion Cardiac Exam: - regular rate & rhythm, no murmurs gallops or rubs - normal S1, normal S2 Pulses: 2(+) throughout Abdomen: abdomen soft, non-tender, no abnormal masses and no hepatosplenomegaly Musculoskeletal: no gait disturbance, no joint inflammation, no deforming arthritis Extremities: no edema and no cyanosis Neuro: grossly normal exam Results & Data ([facility]) Vital Signs (Past 12 Hours) Vital Signs Temp Pulse Pulse Pulse Resp BP BP 05/25/22 11:22 36.5 C 78 18 104/67 05/25/22 07:30 05/25/22 07:30 93 H 05/25/22 07:52 36.7 C 93 H 16 104/64 05/25/22 03:00 36.6 C 88 20 114/62 Pulse Ox O2 Del Method O2 Flow Rate 05/25/22 11:22 97 Nasal Cannula 1 05/25/22 07:30 Nasal Cannula 1 05/25/22 07:30 05/25/22 07:52 98 Nasal Cannula 1 05/25/22 03:00 98 Laboratory Results Laboratory Results - last 24 hr 05/24/22 05/24/22 05/25/22 16:14 20:02 07:13 POC Glucose 81 172 H 175 H 05/25/22 11:17 POC Glucose 186 H Medications Administered Current Inpatient Medications Amiodarone HCl (Amiodarone 200 Mg Tab) 200 mg PO BIDM [facility] Stop: 06/24/22 16:59 Atorvastatin Calcium ([facility]atin 40 Mg Tab) [facility]: 06/14/22 08:59 Last Admin: 05/20/22 08:01 Dose: 40 mg Collagenase (Collagenase Oint 30 Gm Tube) 1 appln EXT DAILY [facility] Stop: 06/14/22 08:59 Last Admin: 05/19/22 07:35 Dose: Not Given Dextrose (Dextrose 50% 50 Ml Syringe) 25 - 50 ml IV UD PRN; Protocol PRN Reason: Hypoglycemia Protocol Stop: 06/13/22 18:24 Last Admin: 05/16/22 11:55 Dose: 50 ml Fluconazole (Fluconazole 100 Mg Tab) [facility] Stop: 07/03/22 08:59 Last Admin: 05/25/22 08:33 Dose: 200 mg Gabapentin (Gabapentin 100 Mg Cap) [facility] Stop: 06/14/22 08:59 Last Admin: 05/25/22 08:33 Dose: 100 mg Gabapentin (Gabapentin 100 Mg Cap) 200 mg PO [facility] Stop: 06/18/22 20:59 Last Admin: 05/20/22 20:56 Dose: 200 mg Glucagon (Glucagon For Inj 1 Mg Vial) 1 mg SQ UD PRN; Protocol PRN Reason: Hypoglycemia Protocol Stop: 06/13/22 18:24 Glucose (Glucose 40% Gel 15 Gm Tube) 15 - 30 gm PO UD PRN; Protocol PRN Reason: Hypoglycemia Protocol Stop: 06/13/22 18:24 Glucose (Glucose 10 Tab/Tube) 4 - 8 tab PO UD PRN; Protocol PRN Reason: Hypoglycemia Treatment Stop: 06/13/22 18:24 Hydromorphone HCl (Hydromorphone Inj 0.5 Mg/0.5 Ml Syr) 0.25 mg IV Q6H PRN PRN Reason: Pain Stop: 06/08/22 11:26 Daptomycin 550 mg/ Syringe 11 mls @ 5.5 mls/min IV MoWe@1400 ROSA M; Protocol Stop: 07/05/22 13:59 Last Admin: 05/24/22 15:44 Dose: 5.5 mls/min Daptomycin 800 mg/ Syringe 16 mls @ 8 mls/min IV Fr@1400 ROSA M; Protocol Stop: 07/02/22 13:59 Last Admin: 05/21/22 13:54 Dose: 8 mls/min Heparin Sodium/Dextrose (Heparin Sodium/Dextrose) 25,000 units in 500 mls @ 23 mls/hr IV .[id number] [facility]; Protocol Stop: 06/20/22 19:14 Last Titration: 05/23/22 13:20 Dose: Infused Cefepime HCl 500 mg/ Syringe 5.65 mls @ 5.5 mls/min IV Q24H [facility]; Protocol Stop: 07/03/22 22:59 Last Admin: 05/24/22 22:33 Dose: 5.5 mls/min Insulin Aspart (Insulin Aspart Per Unit) 0 units SC ACHS [facility]; Protocol Stop: 06/20/22 11:29 Last Admin: 05/25/22 08:34 Dose: 7 units Insulin Glargine (Lantus Per Unit Charge) 15 units SQ HS [facility] Stop: 06/24/22 20:59 Lactobacillus Acidophilus (Advanced Probiotic 1250 Mg Capsule) 2 cap PO DAILY [facility] Stop: 06/23/22 16:44 Last Admin: 05/25/22 08:33 Dose: 2 cap Latanoprost (Latanoprost 0.005% Op Soln 2.5 Ml Btl) 1 drops OP QPM [facility] Stop: 06/13/22 20:59 Last Admin: 05/24/22 21:08 Dose: 1 drops Levothyroxine Sodium (Levothyroxine Sodium 150 Mcg Tablet) 150 mcg PO DAILYBB [facility] Stop: 06/21/22 06:29 Last Admin: 05/25/22 06:09 Dose: 150 mcg Metoprolol Succinate (Metoprolol Succ 25mg Ext Rel Tab) 25 mg PO QAM [facility] Stop: 06/14/22 08:59 Last Admin: 05/25/22 08:32 Dose: 25 mg Midodrine (Midodrine Hcl 10 Mg Tab) 10 mg PO TID@0800,1200,1700 [facility] Stop: 06/21/22 03:19 Last Admin: 05/25/22 08:33 Dose: 10 mg Miscellaneous (Carbohydrates For Hypoglycemia ) 15 - 30 gm PO UD PRN PRN Reason: Hypoglycemia Protocol Stop: 06/13/22 18:24 Miscellaneous Information (Pharmacy Glycemic Mgmt Consult) 1 each N/A UD PRN PRN Reason: Consult Stop: 06/22/22 17:05 Nitroglycerin (Nitroglycerin Sl 0.4 Mg/Tab Tab) 0.4 mg SL PRN PRN PRN Reason: Chest Pain Stop: 06/17/22 18:44 Ondansetron HCl (Ondansetron Inj 2 Mg/Ml 2 Ml Vial) 4 mg IV Q6H PRN PRN Reason: Nausea Stop: 06/13/22 18:19 Last Admin: 05/22/22 08:35 Dose: 4 mg Oxycodone HCl (Oxycodone Hcl Ir 5 Mg Tab (Immediate Release)) 2.5 mg PO DAILY PRN PRN Reason: Pain Stop: 05/31/22 03:56 Last Admin: 05/25/22 07:37 Dose: 2.5 mg Pantoprazole Sodium (Pantoprazole 40 Mg Tab) 40 mg PO DAILY [facility] Stop: 06/14/22 08:59 Last Admin: 05/25/22 08:33 Dose: 40 mg Ropinirole HCl (Ropinirole Hcl 0.25 Mg Tablet) 0.25 mg PO HS [facility] Stop: 06/17/22 20:59 Last Admin: 05/24/22 21:08 Dose: 0.25 mg (1) Decubitus ulcer of sacral area Pressure injury stage: stage 4 Qualified Code(s): L89.154 - Pressure ulcer of sacral region, stage 4 (2) Osteomyelitis Osteomyelitis location: unspecified site Osteomyelitis type: unspecified type Qualified Code(s): M86.9 - Osteomyelitis, unspecified
[2022-05-25] MEDS ORDERED: SODIUM CHLORIDE 0.9% 1000ML 1,000 ML IV PRN (13:06)
[2022-05-25] MEDS ORDERED: HEPARIN SOD (PORCINE) 1000 UNIT/ML IV ONE (13:06)
[2022-05-25] MEDS ORDERED: EPOETIN ALFA 20,000 UNITS/ML VIAL IV SCH (14:00)
[2022-05-25] MEDS ORDERED: MIDODRINE HCL 10 MG TAB PO ONE (14:15)
--- NOTE | 2022-05-25 15:19 | Communication Note ---
Date of Service: May 25, 2022 liaison attempted to see patient but was receiving dressing change. chart/consult request reviewed. Will complete consult within 24 hrs.
--- NOTE | 2022-05-25 16:01 | Hospitalist Progress Note ---
Date of Service May 25, 2022 Assessment & Plan (1) Sepsis: Plan: - patient with tachycardia, leukocytosis, lactic acidosis - source likely stage IV sacral ulcer with likely underlying osteomyelitis - broad spectrum abx with intravenous cefepime, daptomycin and oral fluconazole - surgical consult-recommended surgical debridement, however, patient declined before but as of 05/25/22 she seems to be willing -Stayed in ICU and now in telemetry unit - debridement planned for 05/20 in am which she declined, Santyl also stopped. -Remained medically stable and the patient is wishing to have surgical debridement as of today that is 06-14 -Appreciate ID input and recommendation -The patient is now agreeable to go for surgical debridement with or without wound VAC -If surgical debridement is done antibiotic should be continued for 4 more weeks depending on the culture results. 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 3 times daily, plan to decrease to BID tomorrow Heparin drip held Also on usual metoprolol XL 25 mg daily (4) Ulcer of sacral region, stage 4: Plan: plan as above. (5) Radiation necrosis of skin and subcutaneous: Plan: - plan as above (6) Acute hyponatremia: Plan: - likely due to sepsis and decrease po intake -improving, cont to monitor. -nephro following in this complex ESRD patient. Sodium 130--129 Monitor (7) End-stage renal disease (ESRD): Plan: - has been on HD for the past year, per patient - HD catheter in right chest - no evidence of infection at catheter site - normal schedule is MW -this past week was undergoing daily treatments with 3-3.5L UF removed each time on pressor support in preparation for surgical debridement of wound which she ultimately declined. 05/24 Nephrology on board (8) Diabetes: Plan: - on insulin at home -cont insulin protocol per ICU (9) Hypothyroid: Plan: - patient is hypothyroid on labs with TSH 22, FT4 <0.25 - unclear if patient taking medication appropriately - after dosing her with levothyroxine here she is euthyroid with TSH 2.0 (10) Anemia: Plan: - chronic anemia in the setting of ESRD and GI losses (reported but not observed) and phlebotomy - was reportedly getting ?EPO injections with HD per Patient - continue EPO per renal - no signs of active bleeding at this time -Hb drop occurred, however, wondering if this may have had something to do with hemoconcentration with so much UF being removed and then after she went into afib, we added back 1L NSS and rehydrated her prior to the "drop". -no active bleeding although +FOBT noted overnight. - will monitor for now Hemoglobin remaining stable 7.2, now 7.5 No signs of active bleeding (11) Thrombocytopenia: Plan: - unclear chronicity - likely consumption in sepsis, ESRD, chronic illness - no signs of bleeding -resolved (12) Coagulopathy: Plan: - patient not on warfarin - in the setting of sepsis -DDx includes but not limited to DIC (less likely with elevated fibrinogen) vs poor nutrition. -cont to monitor 05/20: INR 2.0 Plan DVT ppx: Heparin drip on hold Code Status: changed to DNR after update by palliative doctor. She is not quite ready for hospice at this point and wants to keep going wt hemodialysis for now. Admission and Anticipated Discharge Date Admission Date: May 14, 2022 Subjective 05/25/2022 The patient was seen and examined in telemetry unit She complains to have bilateral leg pain but denies any chest pain, palpitation or shortness of breath Denies any abdominal pain, nausea and or vomiting Clinically looks depressed Review of Systems Review of Systems: All systems reviewed and are unremarkable except as noted below Physical Exam Physical Exam: Lying in bed comfortably but looks depressed Constitutional: well developed, well nourished, + ill appearing and + obese Eyes: PERRL, conjunctivae normal, anicteric sclerae ENMT: external ear and nose normal, oropharynx normal Neck: trachea midline, no thyromegaly Respiratory: no respiratory distress Auscultation: + diminished lung sounds and + crackles (Minimal crackles at the bases) Cardiovascular: Rate/Rhythm: regular rate and regular rhythm; not tachycardic Heart Sounds: normal S1 and normal S2; no murmur Extremities: + edema (1+ edema bilaterally) Gastrointestinal (Abdomen): Inspection/Auscultation: normal bowel sounds; + abdomen abnormal to inspection (Has colostomy bag in site to) and abdomen not distended Percussion/Palpation: abdomen soft; abdomen nontender Musculoskeletal: Movements of the knee joints are painful Neurologic: Alert, awake. Generally weak and lethargic. Frequently changes conversation and symptoms Results & Data Results & Data ([facility]) Vital Signs (Past 12 Hours) Vital Signs Temp Pulse Pulse Pulse Pulse Resp BP 05/25/22 15:30 73 96/42 L 05/25/22 15:15 68 101/39 L 05/25/22 15:13 84 05/25/22 15:00 73 101/63 05/25/22 14:50 36.4 C L 75 05/25/22 11:22 36.5 C 78 18 05/25/22 07:30 05/25/22 07:30 93 H 05/25/22 07:52 36.7 C 93 H 16 BP Pulse Ox O2 Del Method O2 Flow Rate 05/25/22 15:30 05/25/22 15:15 05/25/22 15:13 05/25/22 15:00 05/25/22 14:50 05/25/22 11:22 104/67 97 Nasal Cannula 1 05/25/22 07:30 Nasal Cannula 1 05/25/22 07:30 05/25/22 07:52 104/64 98 Nasal Cannula 1 Medications Administered Current Inpatient Medications Amiodarone HCl (Amiodarone 200 Mg Tab) 200 mg PO BIDM [facility] Stop: 06/24/22 16:59 Atorvastatin Calcium (Atorvastatin 40 Mg Tab) 40 mg PO QAM [facility] Stop: 06/14/22 08:59 Last Admin: 05/20/22 08:01 Dose: 40 mg Collagenase (Collagenase Oint 30 Gm Tube) 1 appln EXT DAILY [facility] Stop: 06/14/22 08:59 Last Admin: 05/19/22 07:35 Dose: Not Given Dextrose (Dextrose 50% 50 Ml Syringe) 25 - 50 ml IV UD PRN; Protocol PRN Reason: Hypoglycemia Protocol Stop: 06/13/22 18:24 Last Admin: 05/16/22 11:55 Dose: 50 ml Epoetin Felipe (Epoetin Felipe 20,000 Units/Ml Vial) 20,000 units IV TODAY@1400 ROSA M Stop: 05/25/22 18:00 Last Admin: 05/25/22 15:46 Dose: 20,000 units Fluconazole (Fluconazole 100 Mg Tab) [facility]: 07/03/22 08:59 Last Admin: 05/25/22 08:33 Dose: 200 mg Gabapentin (Gabapentin 100 Mg Cap) [facility] Stop: 06/14/22 08:59 Last Admin: 05/25/22 08:33 Dose: 100 mg Gabapentin (Gabapentin 100 Mg Cap) 200 mg PO [facility] Stop: 06/18/22 20:59 Last Admin: 05/20/22 20:56 Dose: 200 mg Glucagon (Glucagon For Inj 1 Mg Vial) 1 mg SQ UD PRN; Protocol PRN Reason: Hypoglycemia Protocol Stop: 06/13/22 18:24 Glucose (Glucose 40% Gel 15 Gm Tube) 15 - 30 gm PO UD PRN; Protocol PRN Reason: Hypoglycemia Protocol Stop: 06/13/22 18:24 Glucose (Glucose 10 Tab/Tube) 4 - 8 tab PO UD PRN; Protocol PRN Reason: Hypoglycemia Treatment Stop: 06/13/22 18:24 Hydromorphone HCl (Hydromorphone Inj 0.5 Mg/0.5 Ml Syr) 0.25 mg IV Q6H PRN PRN Reason: Pain Stop: 06/08/22 11:26 Daptomycin 550 mg/ Syringe 11 mls @ 5.5 mls/min IV MoWe@1400 ROSA M; Protocol Stop: 07/05/22 13:59 Last Admin: 05/24/22 15:44 Dose: 5.5 mls/min Daptomycin 800 mg/ Syringe 16 mls @ 8 mls/min IV Fr@1400 ROS AM; Protocol Stop: 07/02/22 13:59 Last Admin: 05/21/22 13:54 Dose: 8 mls/min Heparin Sodium/Dextrose (Heparin Sodium/Dextrose) 25,000 units in 500 mls @ 23 mls/hr IV .[id number] [facility]; Protocol Stop: 06/20/22 19:14 Last Titration: 05/23/22 13:20 Dose: Infused Cefepime HCl 500 mg/ Syringe 5.65 mls @ 5.5 mls/min IV Q24H [facility]; Protocol Stop: 07/03/22 22:59 Last Admin: 05/24/22 22:33 Dose: 5.5 mls/min Sodium Chloride (Nss 1000ml) 1,000 mls @ 0 mls/hr IV .Q0M PRN PRN Reason: For Hemodialysis Use ONLY Stop: 05/25/22 19:05 Insulin Aspart (Insulin Aspart Per Unit) 0 units SC ACHS [facility]; Protocol Stop: 06/20/22 11:29 Last Admin: 05/25/22 12:52 Dose: 5 units Insulin Glargine (Lantus Per Unit Charge) 15 units SQ HS [facility] Stop: 06/24/22 20:59 Lactobacillus Acidophilus (Advanced Probiotic 1250 Mg Capsule) 2 cap PO DAILY [facility] Stop: 06/23/22 16:44 Last Admin: 05/25/22 08:33 Dose: 2 cap Latanoprost (Latanoprost 0.005% Op Soln 2.5 Ml Btl) 1 drops OP QPM [facility] Stop: 06/13/22 20:59 Last Admin: 05/24/22 21:08 Dose: 1 drops Levothyroxine Sodium (Levothyroxine Sodium 150 Mcg Tablet) 150 mcg PO DAILYBB [facility] Stop: 06/21/22 06:29 Last Admin: 05/25/22 06:09 Dose: 150 mcg Metoprolol Succinate (Metoprolol Succ 25mg Ext Rel Tab) 25 mg PO QAM [facility] Stop: 06/14/22 08:59 Last Admin: 05/25/22 08:32 Dose: 25 mg Midodrine (Midodrine Hcl 10 Mg Tab) 10 mg PO TID@0800,1200,1700 [facility] Stop: 06/21/22 03:19 Last Admin: 05/25/22 12:53 Dose: 10 mg Miscellaneous (Carbohydrates For Hypoglycemia ) 15 - 30 gm PO UD PRN PRN Reason: Hypoglycemia Protocol Stop: 06/13/22 18:24 Miscellaneous Information (Pharmacy Glycemic Mgmt Consult) 1 each N/A UD PRN PRN Reason: Consult Stop: 06/22/22 17:05 Nitroglycerin (Nitroglycerin Sl 0.4 Mg/Tab Tab) 0.4 mg SL PRN PRN PRN Reason: Chest Pain Stop: 06/17/22 18:44 Ondansetron HCl (Ondansetron Inj 2 Mg/Ml 2 Ml Vial) 4 mg IV Q6H PRN PRN Reason: Nausea Stop: 06/13/22 18:19 Last Admin: 05/22/22 08:35 Dose: 4 mg Oxycodone HCl (Oxycodone Hcl Ir 5 Mg Tab (Immediate Release)) 2.5 mg PO DAILY PRN PRN Reason: Pain Stop: 05/31/22 03:56 Last Admin: 05/25/22 07:37 Dose: 2.5 mg Pantoprazole Sodium (Pantoprazole 40 Mg Tab) 40 mg PO DAILY [facility] M Stop: 06/14/22 08:59 Last Admin: 05/25/22 08:33 Dose: 40 mg Ropinirole HCl (Ropinirole Hcl 0.25 Mg Tablet) 0.25 mg PO HS [facility] M Stop: 06/17/22 20:59 Last Admin: 05/24/22 21:08 Dose: 0.25 mg (1) Osteomyelitis Osteomyelitis location: unspecified site Osteomyelitis type: unspecified type Qualified Code(s): M86.9 - Osteomyelitis, unspecified
[2022-05-25] MEDS: rOPINIRole HCL 0.25 MG TABLET PO SCH (19:53)
[2022-05-25] MEDS: LATANOPROST 0.005% OP SOLN 2.5 ML BTL OP SCH (19:53)
[2022-05-25] MEDS: LANTUS PER UNIT CHARGE SQ SCH (21:33)
[2022-05-25] MEDS: CEFEPIME 500 MG in SYRINGE 0 ML IV SCH (21:38)
[2022-05-25] MEDS ORDERED: SODIUM CHLORIDE 0.9% 500 ML IV SCH (23:15)
[2022-05-26] MEDS ORDERED: MIDODRINE HCL 2.5 MG TAB PO STA (00:24)
[2022-05-26] MEDS ORDERED: SODIUM CHLORIDE 0.9% 500 ML IV SCH (00:30)
[2022-05-26 05:54] LABS: Basophils # (auto) 0.01 K/uL (0-0.2); Basophils % (auto) 0.2 %; Eosinophils # (auto) 0.19 K/uL (0-0.50); Eosinophils % (auto) 3.1 %; Hematocrit (blood only) 23.3 % (34.1-44.9); Hemoglobin 7.3 g/dl (12.0-16.0); Immature Granulocytes # (auto) 0.05 K/uL (0.00-0.02); Immature Granulocytes % (auto) 0.8 %; Lymphocytes # (auto) 0.71 K/uL (1.2-3.4); Lymphocytes % (auto) 11.5 %; Mean Corpuscular Hemoglobin 30.7 pg (25.0-34.0); Mean Corpuscular Hgb Conc 31.3 g/dL (32.0-36.0); Mean Corpuscular Volume 97.9 fL (80.0-100.0); Mean Platelet Volume 12.1 fL (9.4-12.3); Monocytes # (auto) 0.63 K/uL (0.24-0.82); Monocytes % (auto) 10.2 %; Neutrophils % (auto) 74.2 %; Nucleated RBC # (auto) 0.02 K/uL (0-0); Nucleated RBC % (auto) 0.3 %; Platelet Count 144 K/uL (130-400); RDW Coefficient of Variation 23.9 % (11.5-14.5); RDW Standard Deviation 84.5 fL (36.4-46.3); Red Blood Count 2.38 M/uL (3.93-5.22); White Blood Count 6.19 K/ul (4.8-10.8)
[2022-05-26] MEDS: LEVOTHYROXINE SODIUM 150 MCG TABLET PO SCH (06:10)
[2022-05-26 06:23] LABS: Albumin Globulin Ratio 0.7 (0.9-2); Albumin Level 2.3 gm/dl (3.4-5.0); BUN Creatinine Ratio 9.2 (10-20); Bilirubin,Total 0.8 mg/dl (0.2-1.0); Calcium 7.8 mg/dl (8.5-10.1); Creatinine Clr Calc Pharmacy 29.5 ml/min; Est GFR (African American) 30.1 ml/min; Globulin 3.1 gm/dl (2.5-4.0); Magnesium 1.7 mg/dl (1.7-2.4); Phosphorus 2.8 mg/dl (2.5-4.9); Total Protein 5.4 gm/dl (6.0-8.3)
[2022-05-26] MEDS: INSULIN ASPART PER UNIT SC SCH ×5 (07:00→21:03)
[2022-05-26 07:13] LABS: RBC Morphology Unremarkable
[2022-05-26] MEDS: PANTOprazole 40 MG TAB PO SCH (08:24)
[2022-05-26] MEDS: FLUCONAZOLE 100 MG TAB PO SCH (08:24)
[2022-05-26] MEDS: MIDODRINE HCL 10 MG TAB PO SCH ×3 (08:24→18:17)
[2022-05-26] MEDS: AMIODARONE 200 MG TAB PO SCH (08:24)
[2022-05-26] MEDS: GABAPENTIN 100 MG CAP PO SCH (08:25)
[2022-05-26] MEDS: ADVANCED PROBIOTIC 1250 MG CAPSULE PO SCH (08:25)
[2022-05-26] MEDS: METOPROLOL SUCC 25MG EXT REL TAB PO SCH (08:25)
[2022-05-26] MEDS ORDERED: POTASSIUM CHLORIDE CRTAB 20 MEQ TABCR PO STA (09:02)
--- NOTE | 2022-05-26 09:26 | Surgery Progress Note ---
Date of Service May 26, 2022 Assessment & Plan (1) Ulcer of sacral region, stage 4: Plan: Patient here with sacral wound and osteomyelitis Initially had plans to debride the wound in the OR earlier this admission, but patient deteriorated requiring transfer in the ICU, unable to make decisions for herself, and at that time the family did not want to proceed Now the patient is on the regular floor and much more alert and able to express that she wishes to have her wound debrided We will make her NPO at midnight and proceed with debridement of the ulcer tomorrow in the OR Admission and Anticipated Discharge Date Admission Date: May 14, 2022 Subjective Patient is feeling better. Appears more alert. Now that she is out of the ICU she has expressed wishes that she would like to proceed with debridement of her sacral ulcer. She currently denies much pain at the wound. Physical Exam Physical Exam: awake/alert, no distress Results & Data ([facility]) Vital Signs (Past 12 Hours) Vital Signs Temp Pulse Pulse Pulse Pulse Pulse Resp 05/26/22 08:00 36.5 C 76 18 05/26/22 03:53 05/26/22 03:29 36.6 C 65 20 05/26/22 01:39 71 05/26/22 01:03 70 05/26/22 00:33 68 05/26/22 00:11 72 05/25/22 23:42 70 05/25/22 23:36 71 05/25/22 23:26 70 05/25/22 23:22 69 05/25/22 23:12 71 05/25/22 21:40 05/25/22 22:43 36.6 C 82 18 BP BP Pulse Ox O2 Del Method O2 Flow Rate 05/26/22 08:00 95/58 L 99 Nasal Cannula 2 05/26/22 03:53 83/54 L 05/26/22 03:29 74/42 L 96 Nasal Cannula 05/26/22 01:39 05/26/22 01:03 94/61 L 05/26/22 00:33 107/64 05/26/22 00:11 75/42 L 05/25/22 23:42 78/52 L 05/25/22 23:36 84/56 L 05/25/22 23:26 97/63 L 05/25/22 23:22 89/55 L 05/25/22 23:12 77/50 L 05/25/22 21:40 104/56 L 05/25/22 22:43 78/51 L 79/49 L 97 Nasal Cannula PG Care Time/CCT Total # of Minutes Spent Total Time Spent with Patient: Total time spent is greater than 50% in coordination of care (as documented) at patient's floor/unit and/or counseling patient: Coding Level of Care Code 03771 Subseq Hosp Care Lvl 1 Diagnoses Ulcer of sacral region, stage 4 L98.429
--- NOTE | 2022-05-26 11:28 | Pharmacy Report ---
Pharmacy Glycemic Short Note 2 - Date of Service May 26, 2022 - Glycemic Short BSG Results (Last 24 hours): 05/25/22 05/25/22 05/25/22 11:17 16:26 18:43 Glucose POC Glucose 186 H 158 H 130 H 05/25/22 05/26/22 05/26/22 20:23 05:22 07:26 Glucose 181 H POC Glucose 164 H 195 H 05/26/22 11:15 Glucose POC Glucose 278 H OUTPATIENT ANTIDIABETIC REGIMEN: * Basaglar 42 units HS - reports following [facility] clinic ASSESSMENT: 05/26/22 * Blood sugars [phone]/dl so far today, tighten CF and CR * Continue basal at this time since it was just increased by 50% yesterday * Consider increasing basal tomorrow if fasting remains elevated 05/25/22 * Patient's BSGs yesterday were [phone] mg/dL. Fasting today is 175 mg/dL. * Patient received 20 units of insulin yesterday (10 units of basal and 10 units of bolus). * Fasting trending upwards so increase basal to 15 units. * Continue Novolog. 05/24/22 * Patient's BSGs yesterday were [phone] mg/dL and overnight were 157- 147mg/dL. Fasting today is 142 mg/dL. * Steroids discontinued. Patient to receive dialysis today. * Patient received 92 units of insulin yesterday (40 units of Lantus and 52 units of bolus). * Since steroids discontinued, will change back to once daily Lantus. Patient was hypoglycemic with 15 units of lantus therefore will reduce to 10 units nightly. * Loosen Novolog since steroids d/c'ed. PLAN FOR INPATIENT GLYCEMIC CONTROL: * Hold outpatient diabetes medications * Basal insulin * Lantus 15 units Q HS * Bolus insulin -tighten CF/CR * NovoLog per scale ACHS * Goal Range: Low 110 mg/dL - High 140 mg/dL * Correction Factor: 20 mg/dL/unit * Nutritional / Prandial insulin per carb ratio of 1 unit per 7 grams CHO consumed
--- NOTE | 2022-05-26 11:33 | Cardiology Progress Note ---
Date of Service May 26, 2022 Assessment & Plan (1) Ulcer of sacral region, stage 4: (2) Osteomyelitis: (3) Decubitus ulcer of sacral area: (4) Chronic radiation proctitis: (5) Radiation necrosis of skin and subcutaneous: (6) Uterine cancer: (7) Breast CA: (8) Cancer of anorectum: (9) Diabetes: (10) Coronary artery disease: (11) Heart failure with preserved ejection fraction, borderline, class II: (12) PAD (peripheral artery disease): (13) PAF (paroxysmal atrial fibrillation): Plan The patient is clinically stable from a cardiac standpoint. I would continue the amiodarone at 200 mg daily. Long-term anticoagulation will need to be warfarin. Cardiology will sign off. Please call with any questions. Admission and Anticipated Discharge Date Admission Date: May 14, 2022 Review of Systems Review of Systems: Review of Systems: See HPI for pertinent positives. All other 10 point review of systems are negative. Physical Exam Physical Exam: General: no acute distress and stated age Head: normocephalic, no masses, lesions, tenderness or abnormalities Eyes: conjunctiva are pink and non-injected, sclera clear Neck: supple, no adenopathy, no bruits, normal jugular venous pulse, no hepatojugular reflux Chest: normal shape and normal respiratory effort Lungs: clear to auscultation and percussion Cardiac Exam: - regular rate & rhythm, no murmurs gallops or rubs - normal S1, normal S2 Pulses: 2(+) throughout Abdomen: abdomen soft, non-tender, no abnormal masses and no hepatosplenomegaly Musculoskeletal: no gait disturbance, no joint inflammation, no deforming arthritis Extremities: no edema and no cyanosis Neuro: grossly normal exam Results & Data ([facility]) Vital Signs (Past 12 Hours) Vital Signs Temp Pulse Pulse Pulse Pulse Pulse Resp 05/26/22 08:00 36.5 C 76 18 05/26/22 03:53 05/26/22 03:29 36.6 C 65 20 05/26/22 01:39 71 05/26/22 01:03 70 05/26/22 00:33 68 05/26/22 00:11 72 05/25/22 23:42 70 05/25/22 23:36 71 BP BP Pulse Ox O2 Del Method O2 Flow Rate 05/26/22 08:00 95/58 L 99 Nasal Cannula 2 05/26/22 03:53 83/54 L 05/26/22 03:29 74/42 L 96 Nasal Cannula 05/26/22 01:39 05/26/22 01:03 94/61 L 05/26/22 00:33 107/64 05/26/22 00:11 75/42 L 05/25/22 23:42 78/52 L 05/25/22 23:36 84/56 L Laboratory Results Laboratory Results - last 24 hr 05/25/22 05/25/22 05/25/22 11:17 16:26 18:43 WBC RBC Hgb Hct MCV MCH MCHC RDW Std Deviation RDW Coeff of Josh Plt Count MPV Immature Gran % (Auto) Neut % (Auto) Lymph % (Auto) [place] % (Auto) Eos % (Auto) Baso % (Auto) Neut # (Auto) Lymph # (Auto) [place] # (Auto) Eos # (Auto) Baso # (Auto) Immature Gran # (Auto) Absolute Nucleated RBC Nucleated RBC % (auto) RBC Morphology Sodium Potassium Chloride Carbon Dioxide Anion Gap BUN Creatinine Est Cr Clr Drug Dosing Est GFR ( Amer) Est GFR (Non-Af Amer) BUN/Creatinine Ratio Glucose POC Glucose 186 H 158 H 130 H Calcium Phosphorus Magnesium Total Bilirubin AST ALT Alkaline Phosphatase Total Protein Albumin Globulin Albumin/Globulin Ratio 05/25/22 05/26/22 05/26/22 20:23 05:22 05:22 WBC 6.19 RBC 2.38 L Hgb 7.3 L Hct 23.3 L MCV 97.9 MCH 30.7 MCHC 31.3 L RDW Std Deviation 84.5 H RDW Coeff of Josh 23.9 H Plt Count 144 MPV 12.1 Immature Gran % (Auto) 0.8 Neut % (Auto) 74.2 Lymph % (Auto) 11.5 [place] % (Auto) 10.2 Eos % (Auto) 3.1 Baso % (Auto) 0.2 Neut # (Auto) 4.60 Lymph # (Auto) 0.71 L [place] # (Auto) 0.63 Eos # (Auto) 0.19 Baso # (Auto) 0.01 Immature Gran # (Auto) 0.05 H Absolute Nucleated RBC 0.02 H Nucleated RBC % (auto) 0.3 RBC Morphology Unremarkable Sodium 134 L Potassium 3.0 L Chloride 101 Carbon Dioxide 27 Anion Gap 6 BUN 18 Creatinine 1.95 H Est Cr Clr Drug Dosing 29.5 Est GFR ( Amer) 30.1 Est GFR (Non-Af Amer) 26.0 BUN/Creatinine Ratio 9.2 L Glucose 181 H POC Glucose 164 H Calcium 7.8 L Phosphorus 2.8 Magnesium 1.7 Total Bilirubin 0.8 AST 32 ALT 26 Alkaline Phosphatase 369 H Total Protein 5.4 L Albumin 2.3 L Globulin 3.1 Albumin/Globulin Ratio 0.7 L 05/26/22 05/26/22 07:26 11:15 WBC RBC Hgb Hct MCV MCH MCHC RDW Std Deviation RDW Coeff of Josh Plt Count MPV Immature Gran % (Auto) Neut % (Auto) Lymph % (Auto) [place] % (Auto) Eos % (Auto) Baso % (Auto) Neut # (Auto) Lymph # (Auto) [place] # (Auto) Eos # (Auto) Baso # (Auto) Immature Gran # (Auto) Absolute Nucleated RBC Nucleated RBC % (auto) RBC Morphology Sodium Potassium Chloride Carbon Dioxide Anion Gap BUN Creatinine Est Cr Clr Drug Dosing Est GFR ( Amer) Est GFR (Non-Af Amer) BUN/Creatinine Ratio Glucose POC Glucose 195 H 278 H Calcium Phosphorus Magnesium Total Bilirubin AST ALT Alkaline Phosphatase Total Protein Albumin Globulin Albumin/Globulin Ratio Medications Administered Current Inpatient Medications Amiodarone HCl (Amiodarone 200 Mg Tab) 200 mg PO BIDM [facility] Stop: 06/24/22 16:59 Last Admin: 05/26/22 08:24 Dose: 200 mg Atorvastatin Calcium (Atorvastatin 40 Mg Tab) 40 mg PO QAM [facility] M Stop: 06/14/22 08:59 Last Admin: 05/20/22 08:01 Dose: 40 mg Collagenase (Collagenase Oint 30 Gm Tube) 1 appln EXT DAILY [facility] M Stop: 06/14/22 08:59 Last Admin: 05/19/22 07:35 Dose: Not Given Dextrose (Dextrose 50% 50 Ml Syringe) 25 - 50 ml IV UD PRN; Protocol PRN Reason: Hypoglycemia Protocol Stop: 06/13/22 18:24 Last Admin: 05/16/22 11:55 Dose: 50 ml Fluconazole (Fluconazole 100 Mg Tab) 200 mg PO QAM [facility] Stop: 07/03/22 08:59 Last Admin: 05/26/22 08:24 Dose: 200 mg Gabapentin (Gabapentin 100 Mg Cap) 100 mg PO QAM [facility] M Stop: 06/14/22 08:59 Last Admin: 05/26/22 08:25 Dose: 100 mg Gabapentin (Gabapentin 100 Mg Cap) 200 mg PO HS [facility] Stop: 06/18/22 20:59 Last Admin: 05/20/22 20:56 Dose: 200 mg Glucagon (Glucagon For Inj 1 Mg Vial) 1 mg SQ UD PRN; Protocol PRN Reason: Hypoglycemia Protocol Stop: 06/13/22 18:24 Glucose (Glucose 40% Gel 15 Gm Tube) 15 - 30 gm PO UD PRN; Protocol PRN Reason: Hypoglycemia Protocol Stop: 06/13/22 18:24 Glucose (Glucose 10 Tab/Tube) 4 - 8 tab PO UD PRN; Protocol PRN Reason: Hypoglycemia Treatment Stop: 06/13/22 18:24 Hydromorphone HCl (Hydromorphone Inj 0.5 Mg/0.5 Ml Syr) 0.25 mg IV Q6H PRN PRN Reason: Pain Stop: 06/08/22 11:26 Last Admin: 05/25/22 21:45 Dose: 0.25 mg Daptomycin 550 mg/ Syringe 11 mls @ 5.5 mls/min IV MoWe@1400 ROSA M; Protocol Stop: 07/05/22 13:59 Last Admin: 05/24/22 15:44 Dose: 5.5 mls/min Daptomycin 800 mg/ Syringe 16 mls @ 8 mls/min IV Fr@1400 [facility] M; Protocol Stop: 07/02/22 13:59 Last Admin: 05/21/22 13:54 Dose: 8 mls/min Heparin Sodium/Dextrose (Heparin Sodium/Dextrose) 25,000 units in 500 mls @ 23 mls/hr IV .[id number] [facility] M; Protocol Stop: 06/20/22 19:14 Last Titration: 05/23/22 13:20 Dose: Infused Cefepime HCl 500 mg/ Syringe 5.65 mls @ 5.5 mls/min IV Q24H [facility]; Protocol Stop: 07/03/22 22:59 Last Admin: 05/25/22 21:38 Dose: 5.5 mls/min Insulin Aspart (Insulin Aspart Per Unit) 0 units SC ACHS [facility]; Protocol Stop: 06/20/22 11:29 Last Admin: 05/26/22 08:29 Dose: 8 units Insulin Glargine (Lantus Per Unit Charge) 15 units SQ HS [facility] Stop: 06/24/22 20:59 Last Admin: 05/25/22 21:33 Dose: 15 units Lactobacillus Acidophilus (Advanced Probiotic 1250 Mg Capsule) 2 cap PO DAILY [facility] Stop: 06/23/22 16:44 Last Admin: 05/26/22 08:25 Dose: 2 cap Latanoprost (Latanoprost 0.005% Op Soln 2.5 Ml Btl) 1 drops OP QPM [facility] Stop: 06/13/22 20:59 Last Admin: 05/25/22 19:53 Dose: 1 drops Levothyroxine Sodium (Levothyroxine Sodium 150 Mcg Tablet) 150 mcg PO DAILYBB [facility] Stop: 06/21/22 06:29 Last Admin: 05/26/22 06:10 Dose: 150 mcg Metoprolol Succinate (Metoprolol Succ 25mg Ext Rel Tab) 25 mg PO QAM [facility] Stop: 06/14/22 08:59 Last Admin: 05/26/22 08:25 Dose: Not Given Midodrine (Midodrine Hcl 10 Mg Tab) 10 mg PO TID@0800,1200,1700 [facility] Stop: 06/21/22 03:19 Last Admin: 05/26/22 08:24 Dose: 10 mg Miscellaneous (Carbohydrates For Hypoglycemia ) 15 - 30 gm PO UD PRN PRN Reason: Hypoglycemia Protocol Stop: 06/13/22 18:24 Miscellaneous Information (Pharmacy Glycemic Mgmt Consult) 1 each N/A UD PRN PRN Reason: Consult Stop: 06/22/22 17:05 Nitroglycerin (Nitroglycerin Sl 0.4 Mg/Tab Tab) 0.4 mg SL PRN PRN PRN Reason: Chest Pain Stop: 06/17/22 18:44 Ondansetron HCl (Ondansetron Inj 2 Mg/Ml 2 Ml Vial) 4 mg IV Q6H PRN PRN Reason: Nausea Stop: 06/13/22 18:19 Last Admin: 05/22/22 08:35 Dose: 4 mg Oxycodone HCl (Oxycodone Hcl Ir 5 Mg Tab (Immediate Release)) 2.5 mg PO DAILY PRN PRN Reason: Pain Stop: 05/31/22 03:56 Last Admin: 05/25/22 19:52 Dose: 2.5 mg Pantoprazole Sodium (Pantoprazole 40 Mg Tab) 40 mg PO DAILY [facility] Stop: 06/14/22 08:59 Last Admin: 05/26/22 08:24 Dose: 40 mg Ropinirole HCl (Ropinirole Hcl 0.25 Mg Tablet) 0.25 mg PO HS [facility] Stop: 06/17/22 20:59 Last Admin: 05/25/22 19:53 Dose: 0.25 mg (1) Osteomyelitis Osteomyelitis location: unspecified site Osteomyelitis type: unspecified type Qualified Code(s): M86.9 - Osteomyelitis, unspecified (2) Decubitus ulcer of sacral area Pressure injury stage: stage 4 Qualified Code(s): L89.154 - Pressure ulcer of sacral region, stage 4
[2022-05-26] MEDS: ONDANSETRON INJ 2 MG/ML 2 ML VIAL IV PRN (12:49)
--- NOTE | 2022-05-26 13:10 | Psychiatric Consultation ---
Date of Consultation May 26, 2022 Impression / Recommendations Impression 66 yo female with adjustment reaction to the progression of her complex/chronic medical conditions. (1) Adjustment disorder: Plan she is not interested in a trial of antidepressant medication at this time she has a recent TSH, consider B12/folate; would typically recommend vit D as well but likely can't do supplementation Psych History Identifying Data 66 yo female from [place], admit to [facility] on 05/14/22 for ongoing sacral would infection. Consult is for depression and suicidal statements. Chief Complaint "I take enough pills already, I just need my hair washed and to see my grandkids". History of Present Illness Patient has ESRD on dialysis among other issues and states that she refused transfer to [facility] as she did not have a good experience there, she understands her condition and although she gets frustrated and makes statements about life not being worth living, she has no intent to harm herself. 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 She has a hard time sleeping/focussing/etc due to discomfort and activities are limited due to her eye sight but she clearly attempts to put on make up (has tremor). She readily discussed topics such as liking to cook for her grandchildren ([employer] with pepperonis on top). She is not interested in any mental health treatment or psychiatric interventions. Past Psychiatric History Previous Psych History: denied History of Previous Suicide Attempt: No Past Medication Trials: denied Allergies Allergy/AdvReac Type Severity Reaction Status Date / Time cephalexin Allergy Unknown HIVES Verified 05/26/22 11:35 fluorescein Allergy Unknown EYE Verified 02/15/22 11:16 SWELLING AND THROAT SWELLING lisinopril Allergy Unknown "CHOKING" Verified 02/15/22 11:16 meperidine Allergy Unknown NAUSEA Verified 02/15/22 11:16 Penicillins Allergy Unknown Rash Verified 05/14/22 15:16 Home Medications Medication Instructions Recorded Confirmed Type Daptomycin Iv 750 mg IV .Q FRI 05/14/22 05/14/22 History atorvastatin 40 mg tablet 40 mg PO QAM 05/14/22 05/14/22 History brimonidine 0.2 %-timolol 0.5 % 1 drp OPB AMHS 05/14/22 05/14/22 History eye drops daptomycin 500 mg intravenous 500 mg IV .ONCE A DAY ON 05/14/22 05/14/22 History solution fluconazole 200 mg tablet 200 mg PO QAM 05/14/22 05/14/22 History furosemide 20 mg tablet (Lasix) 20 mg PO QAM 05/14/22 05/14/22 History gabapentin 300 mg capsule 300 mg PO HS 05/14/22 05/14/22 History hydroxyzine HCl 25 mg tablet 25 mg PO Q6 PRN Anxiety 05/14/22 05/14/22 History insulin aspart U-100 100 unit/mL 0 unit subcut .PM MEAL 05/14/22 05/14/22 History (3 mL) subcutaneous pen (Novolog Flexpen U-100 Insulin aspart) insulin glargine 100 unit/mL (3 40 unit subcut QAM 05/14/22 05/14/22 History mL) subcutaneous pen (Basaglar KwikPen U-100 Insulin) latanoprost 0.005 % eye drops 1 drp OPB HS 05/14/22 05/14/22 History levothyroxine 137 mcg tablet 137 mcg PO DAILY 05/14/22 05/14/22 History loperamide 2 mg capsule 2 mg PO DIRECTED PRN Diarrhea 05/14/22 05/14/22 History midodrine 5 mg tablet 5 mg PO TID 05/14/22 05/14/22 History nitroglycerin 0.4 mg sublingual 0.4 mg sublingual DIRECTED PRN 05/14/22 05/14/22 History tablet (Nitrostat) Chest Pain ondansetron HCl 4 mg tablet 4 mg PO DIRECTED PRN Nausea 05/14/22 05/14/22 History oxycodone 5 mg/5 mL oral solution 2.5 mg PO DAILY PRN Severe Pain 05/14/22 05/14/22 History (Scale Score 7-10) pantoprazole 40 mg tablet,delayed 40 mg PO DAILY 05/14/22 05/14/22 History release ropinirole 0.25 mg tablet 0.25 mg PO HS 05/14/22 05/14/22 History sodium hypochlorite 0.25 % solution 1 applic topical DAILY 05/14/22 05/14/22 History triamcinolone acetonide 0.1 % 1 applic topical DIRECTED 05/14/22 05/14/22 History topical cream Personal History Beliefs That Will Affect Care: None Patient History Medical History Accelerating angina Anemia Anemia due to stage 5 chronic kidney disease treated with erythropoietin Atherosclerosis of [place] arteries of extremities with rest pain, left leg Cancer of anorectal junction Cat bite of left forearm Cervical cancer Chronic lower GI bleeding Chronic radiation dermatitis Chronic stable angina CKD (chronic kidney disease) stage 5, GFR less than 15 ml/min CKD, patient preferred treatment modality in-center hemodialysis Closed fracture of phalanx of left fifth toe Colonic polyp Coronary artery disease 50% lad stenosis, an 80% obtuse marginal stenosis, and a 50% PDA stenosis. It should be noted her PDA arose from her left circumflex. Demand ischemia of myocardium DM type 2 with diabetic peripheral neuropathy Encounter for colorectal cancer screening 02/10/07 ESRD (end stage renal disease) on dialysis Heart failure with preserved ejection fraction, borderline, class II History of treatment of incomplete miscarriage x3 History of hyperbaric oxygen therapy 07/2011, 11/2011, 60 treatments. History of rectal or anal cancer HTN (hypertension) Hx of barium enema Hx of mammogram Hyperlipidemia Hyperparathyroidism Hyponatremia Hypothyroidism Injection of surface of both eyes Injection of eye drug, Lucentis 0.3mg by Dr. Taveras Iron deficiency anemia due to chronic blood loss Major depressive disorder Melanoma of back Myocardial infarction Non-compliance Other pancytopenia PAD (peripheral artery disease) Proliferative diabetic retinopathy of both eyes without macular edema associated with diabetes mellitus due to underlying condition Radiation proctitis Retinal edema Retinal lesion S/P arteriogram of extremity Thrombocytopenia Type 2 diabetes mellitus Uncontrolled type 2 diabetes mellitus with retinopathy of left eye, with long- term current use of insulin Uterine cancer Vitreous hemorrhage of right eye Surgical History H/O cataract removal with insertion of prosthetic lens H/O colonoscopy adhesions and radiation colitis precluded advancing scope through the sigmoid. Exam discontinued. H/O eye surgery partial removal of eye fluid, bilateral H/O laparoscopy appendectomy History of breast surgery left breast, 1982 History of insertion of tunneled central venous catheter (CVC) with port History of revascularization procedure of lower extremity Hx of angioplasty Hx of biopsy benign right breast biopsy about 20 years ago. Hx of colonoscopy 08/31/2017, multiple colonic angioectasias from prior radiation/narrowed and scarred left colon from multiple prior surgeries/colonoscopy flexible proximal diagnositic performed by Chandler Gill. S/P laser trabeculoplasty of eye S/P tonsillectomy Status post total abdominal hysterectomy Social History Smoking Status: Never smoker Hx Alcohol Use: No Hx Substance Use: No Preferred Language: Moroccan Communication Ability: Effective Beliefs That Will Affect Care: None marital status: Current Living Situation: Spouse current occupational status: employed current occupation: has own salon How many Children do You have: 1 How many Children do You have Comment: special needs child Feels Safe at Home: Yes Safety Concerns: Feels Safe At This Time caffeine: No Assistive Devices: None Physical Exam Psychiatric: Orientation: alert Apperance: appropriately dressed and appropriately groomed Eye Contact: good eye contact Motor Behavior: no abnormal motor movements Speech: normal rate/rhythm/volume of speech Affect: + depressed affect Mood: + depressed mood Thought Process: goal directed thought process Thought Content: reality based without delusions Suicidal Thoughts: denies suicidal thoughts Homicidal Thoughts: denies homicidal thoughts Hallucinations: no auditory hallucinations and no visual hallucinations Cognition: attention grossly intact and language grossly intact Estimated Intelligence: consistent with education level Insight: + limited insight Vital Signs (Past 24 Hours): Last Vital Signs Temp 36.6 C 05/26/22 11:27 Pulse 77 05/26/22 11:27 Resp 20 05/26/22 11:27 BP 104/67 05/26/22 11:27 Pulse Ox 99 05/26/22 11:27 O2 Del Method 05/26/22 11:27 O2 Flow Rate 1 05/26/22 11:27 FiO2 40 05/20/22 09:52 Review of Systems All systems reviewed & are unremarkable except as noted in HPI & below Results & Data (PSY) Laboratory Results 05/26/22 05/26/22 05/26/22 Range/Units 11:15 07:26 05:22 WBC (4.8-10.8) K/ul RBC (3.93-5.22) M/uL Hgb (12.0-16.0) g/dl Hct (34.1-44.9) % MCV (80.0-100.0) fL MCH (25.0-34.0) pg MCHC (32.0-36.0) g/dL RDW Std Deviation (36.4-46.3) fL RDW Coeff of Josh (11.5-14.5) % Plt Count (130-400) K/uL MPV (9.4-12.3) fL Immature Gran % (Auto) % Neut % (Auto) % Lymph % (Auto) % [place] % (Auto) % Eos % (Auto) % Baso % (Auto) % Neut # (Auto) (1.4-6.5) K/uL Lymph # (Auto) (1.2-3.4) K/uL [place] # (Auto) (0.24-0.82) K/uL Eos # (Auto) (0-0.50) K/uL Baso # (Auto) (0-0.2) K/uL Immature Gran # (Auto) (0.00-0.02) K/uL Absolute Nucleated RBC (0-0) K/uL Nucleated RBC % (auto) % RBC Morphology Sodium 134 L (136-145) mmol/L Potassium 3.0 L (3.5-5.1) mmol/L Chloride 101 (98-107) mmol/L Carbon Dioxide 27 (21-32) mmol/L Anion Gap 6 (3-11) BUN 18 (6-23) mg/dl Creatinine 1.95 H (0.6-1.2) mg/dl Est Cr Clr Drug Dosing 29.5 ml/min Est GFR ( Amer) 30.1 ml/min Est GFR (Non-Af Amer) 26.0 ml/min BUN/Creatinine Ratio 9.2 L (10-20) Glucose 181 H (70-99(Fasting)) mg/dl POC Glucose 278 H 195 H (70-99) mg/dl Calcium 7.8 L (8.5-10.1) mg/dl Phosphorus 2.8 (2.5-4.9) mg/dl Magnesium 1.7 (1.7-2.4) mg/dl Total Bilirubin 0.8 (0.2-1.0) mg/dl AST 32 (13-39) U/L ALT 26 (7-52) U/L Alkaline Phosphatase 369 H (34-104) U/L Total Protein 5.4 L (6.0-8.3) gm/dl Albumin 2.3 L (3.4-5.0) gm/dl Globulin 3.1 (2.5-4.0) gm/dl Albumin/Globulin Ratio 0.7 L (0.9-2) 05/26/22 05/25/22 05/25/22 Range/Units 05:22 20:23 18:43 WBC 6.19 (4.8-10.8) K/ul RBC 2.38 L (3.93-5.22) M/uL Hgb 7.3 L (12.0-16.0) g/dl Hct 23.3 L (34.1-44.9) % MCV 97.9 (80.0-100.0) fL MCH 30.7 (25.0-34.0) pg MCHC 31.3 L (32.0-36.0) g/dL RDW Std Deviation 84.5 H (36.4-46.3) fL RDW Coeff of Josh 23.9 H (11.5-14.5) % Plt Count 144 (130-400) K/uL MPV 12.1 (9.4-12.3) fL Immature Gran % (Auto) 0.8 % Neut % (Auto) 74.2 % Lymph % (Auto) 11.5 % [place] % (Auto) 10.2 % Eos % (Auto) 3.1 % Baso % (Auto) 0.2 % Neut # (Auto) 4.60 (1.4-6.5) K/uL Lymph # (Auto) 0.71 L (1.2-3.4) K/uL [place] # (Auto) 0.63 (0.24-0.82) K/uL Eos # (Auto) 0.19 (0-0.50) K/uL Baso # (Auto) 0.01 (0-0.2) K/uL Immature Gran # (Auto) 0.05 H (0.00-0.02) K/uL Absolute Nucleated RBC 0.02 H (0-0) K/uL Nucleated RBC % (auto) 0.3 % RBC Morphology Unremarkable Sodium (136-145) mmol/L Potassium (3.5-5.1) mmol/L Chloride (98-107) mmol/L Carbon Dioxide (21-32) mmol/L Anion Gap (3-11) BUN (6-23) mg/dl Creatinine (0.6-1.2) mg/dl Est Cr Clr Drug Dosing ml/min Est GFR ( Amer) ml/min Est GFR (Non-Af Amer) ml/min BUN/Creatinine Ratio (10-20) Glucose (70-99(Fasting)) mg/dl POC Glucose 164 H 130 H (70-99) mg/dl Calcium (8.5-10.1) mg/dl Phosphorus (2.5-4.9) mg/dl Magnesium (1.7-2.4) mg/dl Total Bilirubin (0.2-1.0) mg/dl AST (13-39) U/L ALT (7-52) U/L Alkaline Phosphatase (34-104) U/L Total Protein (6.0-8.3) gm/dl Albumin (3.4-5.0) gm/dl Globulin (2.5-4.0) gm/dl Albumin/Globulin Ratio (0.9-2) 05/25/22 Range/Units 16:26 WBC (4.8-10.8) K/ul RBC (3.93-5.22) M/uL Hgb (12.0-16.0) g/dl Hct (34.1-44.9) % MCV (80.0-100.0) fL MCH (25.0-34.0) pg MCHC (32.0-36.0) g/dL RDW Std Deviation (36.4-46.3) fL RDW Coeff of Josh (11.5-14.5) % Plt Count (130-400) K/uL MPV (9.4-12.3) fL Immature Gran % (Auto) % Neut % (Auto) % Lymph % (Auto) % [place] % (Auto) % Eos % (Auto) % Baso % (Auto) % Neut # (Auto) (1.4-6.5) K/uL Lymph # (Auto) (1.2-3.4) K/uL [place] # (Auto) (0.24-0.82) K/uL Eos # (Auto) (0-0.50) K/uL Baso # (Auto) (0-0.2) K/uL Immature Gran # (Auto) (0.00-0.02) K/uL Absolute Nucleated RBC (0-0) K/uL Nucleated RBC % (auto) % RBC Morphology Sodium (136-145) mmol/L Potassium (3.5-5.1) mmol/L Chloride (98-107) mmol/L Carbon Dioxide (21-32) mmol/L Anion Gap (3-11) BUN (6-23) mg/dl Creatinine (0.6-1.2) mg/dl Est Cr Clr Drug Dosing ml/min Est GFR ( Amer) ml/min Est GFR (Non-Af Amer) ml/min BUN/Creatinine Ratio (10-20) Glucose (70-99(Fasting)) mg/dl POC Glucose 158 H (70-99) mg/dl Calcium (8.5-10.1) mg/dl Phosphorus (2.5-4.9) mg/dl Magnesium (1.7-2.4) mg/dl Total Bilirubin (0.2-1.0) mg/dl AST (13-39) U/L ALT (7-52) U/L Alkaline Phosphatase (34-104) U/L Total Protein (6.0-8.3) gm/dl Albumin (3.4-5.0) gm/dl Globulin (2.5-4.0) gm/dl Albumin/Globulin Ratio (0.9-2) Medications Administered Atorvastatin Calcium (Atorvastatin 40 Mg Tab) 40 mg PO QAM ROSA M Stop: 06/14/22 08:59 Last Admin: 05/20/22 08:01 Dose: 40 mg Documented By: Admin: 05/19/22 07:35 Dose: 40 mg Documented By: Admin: 05/18/22 08:00 Dose: 40 mg Documented By: Admin: 05/17/22 08:40 Dose: Not Given Documented By: Admin: 05/16/22 08:51 Dose: 40 mg Documented By: Admin: 05/15/22 08:43 Dose: 40 mg Documented By: CHRISTINA Collagenase (Collagenase Oint 30 Gm Tube) 1 appln EXT DAILY ROSA M Stop: 06/14/22 08:59 Last Admin: 05/19/22 07:35 Dose: Not Given Documented By: Admin: 05/18/22 08:02 Dose: Not Given Documented By: Admin: 05/17/22 12:26 Dose: 1 appln Documented By: Admin: 05/16/22 08:50 Dose: 1 appln Documented By: Admin: 05/15/22 08:42 Dose: 1 appln Documented By: CHRISTINA Dextrose (Dextrose 50% 50 Ml Syringe) 25 - 50 ml IV UD PRN; Protocol PRN Reason: Hypoglycemia Protocol Stop: 06/13/22 18:24 Last Admin: 05/16/22 11:55 Dose: 50 ml Documented By: Admin: 05/16/22 06:39 Dose: 50 ml Documented By: ALEXI Fluconazole (Fluconazole 100 Mg Tab) [facility] [place]: 07/03/22 08:59 Last Admin: 05/26/22 08:24 Dose: 200 mg Documented By: Admin: 05/25/22 08:33 Dose: 200 mg Documented By: Admin: 05/24/22 15:37 Dose: 200 mg Documented By: Admin: 05/23/22 08:34 Dose: 200 mg Documented By: Admin: 05/22/22 10:14 Dose: 200 mg Documented By: RADHA Gabapentin (Gabapentin 100 Mg Cap) [facility] [place] Stop: 06/14/22 08:59 Last Admin: 05/26/22 08:25 Dose: 100 mg Documented By: Admin: 05/25/22 08:33 Dose: 100 mg Documented By: Admin: 05/24/22 09:37 Dose: 100 mg Documented By: Admin: 05/23/22 08:33 Dose: 100 mg Documented By: Admin: 05/22/22 10:13 Dose: 100 mg Documented By: Admin: 05/21/22 08:57 Dose: 100 mg Documented By: Admin: 05/20/22 08:03 Dose: 100 mg Documented By: Admin: 05/19/22 07:36 Dose: 100 mg Documented By: Admin: 05/18/22 08:00 Dose: 100 mg Documented By: Admin: 05/17/22 08:40 Dose: Not Given Documented By: Admin: 05/16/22 08:52 Dose: 100 mg Documented By: Admin: 05/15/22 08:43 Dose: 100 mg Documented By: CHRISTINA Gabapentin (Gabapentin 100 Mg Cap) 200 mg PO ROSA M Stop: 06/18/22 20:59 Last Admin: 05/20/22 20:56 Dose: 200 mg Documented By: Admin: 05/19/22 21:29 Dose: 200 mg Documented By: ELAN Hydromorphone HCl (Hydromorphone Inj 0.5 Mg/0.5 Ml Syr) 0.25 mg IV Q6H PRN PRN Reason: Pain Stop: 06/08/22 11:26 Last Admin: 05/25/22 21:45 Dose: 0.25 mg Documented By: MIKE Daptomycin 550 mg/ Syringe 11 mls @ 5.5 mls/min IV MoWe@1400 ROSA M; Protocol Stop: 07/05/22 13:59 Last Admin: 05/24/22 15:44 Dose: 5.5 mls/min Documented By: JORJE Daptomycin 800 mg/ Syringe 16 mls @ 8 mls/min IV Fr@1400 ROSA M; Protocol Stop: 07/02/22 13:59 Last Admin: 05/21/22 13:54 Dose: 8 mls/min Documented By: HOLLY Heparin Sodium/Dextrose (Heparin Sodium/Dextrose) 25,000 units in 500 mls @ 23 mls/hr IV .[id number] ROSA M; Protocol Stop: 06/20/22 19:14 Last Titration: 05/23/22 13:20 Dose: 0 units/hr, 0 mls/hr Documented By: RADHA Co-signed By: NAKUL Titration: 05/22/22 03:08 Dose: 1,100 units/hr, 22 mls/hr Documented By: HO Co-signed By: BRYN Admin: 05/21/22 19:41 Dose: 1,150 units/hr, 23 mls/hr Documented By: HO Co-signed By: BRYN Insulin Aspart (Insulin Aspart Per Unit) 0 units SC [facility]; Protocol Stop: 06/20/22 11:29 Last Admin: 05/26/22 12:08 Dose: 12 units Documented By: JORJE Co-signed By: CAIT Admin: 05/26/22 08:29 Dose: 8 units Documented By: JORJE Co-signed By: CAIT Admin: 05/26/22 07:00 Dose: Not Given Documented By: Admin: 05/25/22 21:33 Dose: 1 units Documented By: MIKE Co-signed By: DAT Admin: 05/25/22 12:52 Dose: 5 units Documented By: JORJE Co-signed By: CAIT Admin: 05/25/22 08:34 Dose: 7 units Documented By: JORJE Co-signed By: CAIT Admin: 05/24/22 21:10 Dose: 2 units Documented By: MIKE Co-signed By: SALLY Admin: 05/24/22 17:55 Dose: 2 units Documented By: JORJE Co-signed By: BALJIT Admin: 05/24/22 16:54 Dose: Not Given Documented By: JORJE Co-signed By: BALJIT Admin: 05/24/22 09:36 Dose: 6 units Documented By: JORJE Co-signed By: BALJIT Admin: 05/23/22 21:30 Dose: 9 units Documented By: MIKE Co-signed By: RICHARD Admin: 05/23/22 17:10 Dose: 11 units Documented By: SEBASTIEN Co-signed By: DANNA Admin: 05/23/22 12:38 Dose: 14 units Documented By: RADHA Co-signed By: SURJIT Admin: 05/23/22 08:48 Dose: 13 units Documented By: RADHA Co-signed By: SALLY(2) Admin: 05/22/22 21:40 Dose: 6 units Documented By: HO Co-signed By: THOMAS Admin: 05/22/22 17:14 Dose: 8 units Documented By: TB Co-signed By: NAKUL Admin: 05/22/22 13:01 Dose: 3 units Documented By: RADHA Co-signed By: SURJIT Admin: 05/22/22 08:09 Dose: 13 units Documented By: TB Co-signed By: VIR[place] Admin: 05/21/22 21:25 Dose: 8 units Documented By: HO Co-signed By: BRYN Admin: 05/21/22 17:09 Dose: 11 units Documented By: HOLLY Co-signed By: LEVAR Admin: 05/21/22 11:57 Dose: Not Given Documented By: HOLLY Insulin Glargine (Lantus Per Unit Charge) 15 units SQ HS ROSA M Stop: 06/24/22 20:59 Last Admin: 05/25/22 21:33 Dose: 15 units Documented By: MIKE Co-signed By: DAT Lactobacillus Acidophilus (Advanced Probiotic 1250 Mg Capsule) 2 cap PO DAILY ROSA M Stop: 06/23/22 16:44 Last Admin: 05/26/22 08:25 Dose: 2 cap Documented By: Admin: 05/25/22 08:33 Dose: 2 cap Documented By: Admin: 05/24/22 17:53 Dose: 2 cap Documented By: JORJE Latanoprost (Latanoprost 0.005% Op Soln 2.5 Ml Btl) 1 drops OP QPM ROSA M Stop: 06/13/22 20:59 Last Admin: 05/25/22 19:53 Dose: 1 drops Documented By: AMWinston Admin: 05/24/22 21:08 Dose: 1 drops Documented By: AMWinston Admin: 05/23/22 20:26 Dose: 1 drops Documented By: Admin: 05/22/22 21:32 Dose: 1 drops Documented By: Admin: 05/21/22 21:24 Dose: 1 drops Documented By: Admin: 05/20/22 20:58 Dose: 1 drops Documented By: Admin: 05/19/22 21:32 Dose: 1 drops Documented By: Admin: 05/18/22 21:06 Dose: 1 drops Documented By: ANNA MARIE Admin: 05/17/22 21:09 Dose: 1 drops Documented By: ANNA MARIE Admin: 05/16/22 20:24 Dose: 1 drops Documented By: Admin: 05/15/22 21:36 Dose: 1 drops Documented By: Admin: 05/14/22 22:11 Dose: 1 drops Documented By: ALEXI Levothyroxine Sodium (Levothyroxine Sodium 150 Mcg Tablet) 150 mcg PO DAILYBB [facility] Stop: 06/21/22 06:29 Last Admin: 05/26/22 06:10 Dose: 150 mcg Documented By: Admin: 05/25/22 06:09 Dose: 150 mcg Documented By: Admin: 05/24/22 06:35 Dose: 150 mcg Documented By: Admin: 05/23/22 05:53 Dose: 150 mcg Documented By: Admin: 05/22/22 04:49 Dose: 150 mcg Documented By: HO Metoprolol Succinate (Metoprolol Succ 25mg Ext Rel Tab) 25 mg PO QAM ROSA M Stop: 06/14/22 08:59 Last Admin: 05/26/22 08:25 Dose: Not Given Documented By: Admin: 05/25/22 08:32 Dose: 25 mg Documented By: Admin: 05/24/22 16:53 Dose: Not Given Documented By: Admin: 05/23/22 11:10 Dose: Not Given Documented By: Admin: 05/22/22 10:14 Dose: Not Given Documented By: Admin: 05/17/22 08:40 Dose: Not Given Documented By: Admin: 05/16/22 08:54 Dose: Not Given Documented By: Admin: 05/15/22 08:44 Dose: 25 mg Documented By: CHRISTINA Midodrine (Midodrine Hcl 10 Mg Tab) 10 mg PO TID@0800,1200,1700 ROSA M Stop: 06/21/22 03:19 Last Admin: 05/26/22 12:12 Dose: 10 mg Documented By: Admin: 05/26/22 08:24 Dose: 10 mg Documented By: Admin: 05/25/22 18:55 Dose: 10 mg Documented By: Admin: 05/25/22 12:53 Dose: 10 mg Documented By: Admin: 05/25/22 08:33 Dose: 10 mg Documented By: Admin: 05/24/22 18:25 Dose: 10 mg Documented By: Admin: 05/24/22 15:37 Dose: 10 mg Documented By: Admin: 05/24/22 09:47 Dose: 10 mg Documented By: Admin: 05/23/22 17:11 Dose: 10 mg Documented By: Admin: 05/23/22 12:39 Dose: 10 mg Documented By: Admin: 05/23/22 08:33 Dose: 10 mg Documented By: Admin: 05/22/22 17:16 Dose: 10 mg Documented By: Admin: 05/22/22 12:05 Dose: 10 mg Documented By: Admin: 05/22/22 04:51 Dose: 10 mg Documented By: HO Ondansetron HCl (Ondansetron Inj 2 Mg/Ml 2 Ml Vial) 4 mg IV Q6H PRN PRN Reason: Nausea Stop: 06/13/22 18:19 Last Admin: 05/26/22 12:49 Dose: 4 mg Documented By: Admin: 05/22/22 08:35 Dose: 4 mg Documented By: RADHA Oxycodone HCl (Oxycodone Hcl Ir 5 Mg Tab (Immediate Release)) 2.5 mg PO DAILY PRN PRN Reason: Pain Stop: 05/31/22 03:56 Last Admin: 05/25/22 19:52 Dose: 2.5 mg Documented By: Admin: 05/25/22 07:37 Dose: 2.5 mg Documented By: Admin: 05/24/22 22:31 Dose: 2.5 mg Documented By: Admin: 05/23/22 20:11 Dose: 2.5 mg Documented By: Admin: 05/21/22 10:40 Dose: 2.5 mg Documented By: HOLLY Pantoprazole Sodium (Pantoprazole 40 Mg Tab) 40 mg PO DAILY ROSA M Stop: 06/14/22 08:59 Last Admin: 05/26/22 08:24 Dose: 40 mg Documented By: Admin: 05/25/22 08:33 Dose: 40 mg Documented By: Admin: 05/24/22 10:34 Dose: 40 mg Documented By: Admin: 05/23/22 08:33 Dose: 40 mg Documented By: Admin: 05/22/22 10:14 Dose: 40 mg Documented By: Admin: 05/21/22 08:59 Dose: 40 mg Documented By: Admin: 05/20/22 08:03 Dose: 40 mg Documented By: Admin: 05/19/22 07:36 Dose: 40 mg Documented By: Admin: 05/18/22 08:01 Dose: 40 mg Documented By: Admin: 05/17/22 08:40 Dose: Not Given Documented By: Admin: 05/16/22 08:53 Dose: 40 mg Documented By: Admin: 05/15/22 08:43 Dose: 40 mg Documented By: CHRISTINA Ropinirole HCl (Ropinirole Hcl 0.25 Mg Tablet) 0.25 mg PO HS ROSA M Stop: 06/17/22 20:59 Last Admin: 05/25/22 19:53 Dose: 0.25 mg Documented By: AMWinston Admin: 05/24/22 21:08 Dose: 0.25 mg Documented By: Admin: 05/23/22 22:18 Dose: 0.25 mg Documented By: Admin: 05/22/22 21:35 Dose: 0.25 mg Documented By: Admin: 05/21/22 20:52 Dose: 0.25 mg Documented By: Admin: 05/20/22 20:56 Dose: 0.25 mg Documented By: Admin: 05/19/22 21:32 Dose: 0.25 mg Documented By: Admin: 05/18/22 21:07 Dose: 0.25 mg Documented By: ANNA MARIE Coding Level of Care Code 01074 Inpt Consult Level 3 Diagnoses Adjustment disorder F43.20
[2022-05-26] MEDS ORDERED: HEPARIN SOD (PORCINE) 1000 UNIT/ML IV ONE (13:44)
[2022-05-26] MEDS ORDERED: SODIUM CHLORIDE 0.9% 1000ML 1,000 ML IV PRN (13:44)
[2022-05-26] MEDS: DAPTOmycin 550 MG in SYRINGE 0 ML IV SCH (13:49)
[2022-05-26] MEDS ORDERED: MIDODRINE HCL 10 MG TAB PO ONE (15:15)
[2022-05-26] MEDS: EPOETIN ALFA 20,000 UNITS/ML VIAL IV ONE ×2 (15:39→15:41)
--- NOTE | 2022-05-26 17:00 | Hospitalist Progress Note ---
Date of Service May 26, 2022 Assessment & Plan (1) Sepsis: Plan: - patient with tachycardia, leukocytosis, lactic acidosis - source likely stage IV sacral ulcer with likely underlying osteomyelitis - broad spectrum abx with intravenous cefepime, daptomycin and oral fluconazole - surgical consult-recommended surgical debridement, however, patient declined before but as of 05/25/22 she seems to be willing -Stayed in ICU and now in telemetry unit - debridement planned for 05/20 in am which she declined, Santyl also stopped. -Remained medically stable and the patient is wishing to have surgical debridement as of today that is 06-14 -Appreciate ID input and recommendation -The patient is now agreeable to go for surgical debridement with or without wound VAC -If surgical debridement is done antibiotic should be continued for 4 more weeks depending on the culture results. If surgical debridement is not done will end antibiotic on 06/02/2022 and plan for aggressive wound care management -Appreciate surgery input and recommendation for surgery tomorrow-wound d ebridement Adjustment disorder with depressed mood Appreciate psychiatrist input and recommendation We will check vitamin levels and vitamin D level TSH has been normal (2) Osteomyelitis: Plan: - 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 - received surgical debridement at [facility] with bone culture/biopsy - was on daptomycin there with 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 - tachycardia, leukocytosis, likely osteo on CT scan in ED - general surgery consulted - recommend chemical debridement with santyl -Sacral wound debridement tomorrow 05/27/2022 (3) New onset atrial fibrillation: Plan: Complex patient flipped into afib with rvr on domenic of 05/21 Was hypotensive with some improvement in hemodynamics with 1L fluid Appreciate cardiology input and recommendation Amiodarone bolus and drip started Remains in SR now Amiodarone increased to 200 mg p.o. 3 times daily, plan to decrease to BID tomorrow Heparin drip held Also on usual metoprolol XL 25 mg daily Has been on amiodarone 200 mg daily and will need anticoagulation with Coumadin on discharge (4) Ulcer of sacral region, stage 4: Plan: plan as above. (5) Radiation necrosis of skin and subcutaneous: Plan: - plan as above (6) Acute hyponatremia: Plan: - likely due to sepsis and decrease po intake -improving, cont to monitor. -nephro following in this complex ESRD patient. Sodium 130--129 Monitor-sodium level is 134 as of 05/26/2022 (7) End-stage renal disease (ESRD): Plan: - has been on HD for the past year, per patient - HD catheter in right chest - no evidence of infection at catheter site - normal schedule is MWF -this past week was undergoing daily treatments with 3-3.5L UF removed each time on pressor support in preparation for surgical debridement of wound which she ultimately declined. (8) Diabetes: Plan: - on insulin at home -cont insulin protocol per ICU (9) Hypothyroid: Plan: - patient is hypothyroid on labs with TSH 22, FT4 <0.25 - unclear if patient taking medication appropriately - after dosing her with levothyroxine here she is euthyroid with TSH 2.0 (10) Anemia: Plan: - chronic anemia in the setting of ESRD and GI losses (reported but not observed) and phlebotomy - was reportedly getting ?EPO injections with HD per Patient - continue EPO per renal - no signs of active bleeding at this time -Hb drop occurred, however, wondering if this may have had something to do with hemoconcentration with so much UF being removed and then after she went into afib, we added back 1L NSS and rehydrated her prior to the "drop". -no active bleeding although +FOBT noted overnight. - will monitor for now Hemoglobin remaining stable 7.2, now 7.5 No signs of active bleeding Hemoglobin is dropped to 7.3-we will monitor and may need blood transfusion (11) Thrombocytopenia: Plan: - unclear chronicity - likely consumption in sepsis, ESRD, chronic illness - no signs of bleeding -resolved (12) Coagulopathy: Plan: - patient not on warfarin - in the setting of sepsis -DDx includes but not limited to DIC (less likely with elevated fibrinogen) vs poor nutrition. -cont to monitor 05/20: INR 2.0 INR is 1.4 as of 05/26/2022 Plan DVT ppx: Heparin drip on hold Code Status: changed to DNR after update by palliative doctor. She is not quite ready for hospice at this point and wants to keep going wt hemodialysis for now. Admission and Anticipated Discharge Date Admission Date: May 14, 2022 Subjective 05/25/2022 The patient was seen and examined in telemetry unit She complains to have bilateral leg pain but denies any chest pain, palpitation or shortness of breath Denies any abdominal pain, nausea and or vomiting Clinically looks depressed 05/26/2022 The patient was seen and examined in telemetry unit She has been feeling much better today though her blood pressure is low following getting Dilaudid IV Denies any significant symptoms She will be going for sacral wound debridement tomorrow Review of Systems Review of Systems: All systems reviewed and are unremarkable except as noted below Physical Exam Physical Exam: Lying in bed comfortably but looks depressed Constitutional: well developed, well nourished, + ill appearing and + obese Eyes: PERRL, conjunctivae normal, anicteric sclerae ENMT: external ear and nose normal, oropharynx normal Neck: trachea midline, no thyromegaly Respiratory: no respiratory distress Auscultation: + diminished lung sounds and + crackles (Minimal crackles at the bases) Cardiovascular: Rate/Rhythm: regular rate and regular rhythm; not tachycardic Heart Sounds: normal S1 and normal S2; no murmur Extremities: + edema (1+ edema bilaterally) Gastrointestinal (Abdomen): Inspection/Auscultation: normal bowel sounds; + abdomen abnormal to inspection (Has colostomy bag in site to) and abdomen not distended Percussion/Palpation: abdomen soft; abdomen nontender Musculoskeletal: No acute arthritis involving any joint Neurologic: normal touch/pain/proprioception and moves all extremities Lymphatic: no cervical or axillary lymphadenopathy Results & Data Results & Data ([facility]) Vital Signs (Past 12 Hours) Vital Signs Temp Pulse Pulse Pulse Resp BP BP 05/26/22 15:30 77 106/27 L 05/26/22 15:25 78 05/26/22 14:40 36.6 C 79 05/26/22 15:00 78 100/48 L 05/26/22 14:46 77 117/55 L 05/26/22 11:27 36.6 C 77 20 104/67 05/26/22 08:45 05/26/22 08:45 67 05/26/22 08:00 36.5 C 76 18 95/58 L Pulse Ox O2 Del Method O2 Flow Rate 05/26/22 15:30 05/26/22 15:25 05/26/22 14:40 05/26/22 15:00 05/26/22 14:46 05/26/22 11:27 99 Nasal Cannula 1 05/26/22 08:45 Nasal Cannula 1 05/26/22 08:45 05/26/22 08:00 99 Nasal Cannula 2 Laboratory Results Short CBC 05/26/22 Range/Units 05:22 WBC 6.19 (4.8-10.8) K/ul Hgb 7.3 L (12.0-16.0) g/dl Hct 23.3 L (34.1-44.9) % Plt Count 144 (130-400) K/uL BMP 05/26/22 05:22 Sodium 134 L Potassium 3.0 L Chloride 101 Carbon Dioxide 27 BUN 18 Creatinine 1.95 H Glucose 181 H Calcium 7.8 L Liver Function 05/26/22 Range/Units 05:22 Total Bilirubin 0.8 (0.2-1.0) mg/dl AST 32 (13-39) U/L ALT 26 (7-52) U/L Alkaline Phosphatase 369 H (34-104) U/L Albumin 2.3 L (3.4-5.0) gm/dl Medications Administered Current Inpatient Medications Amiodarone HCl (Amiodarone 200 Mg Tab) 200 mg PO DAILY ROSA M Stop: 06/26/22 08:59 Atorvastatin Calcium (Atorvastatin 40 Mg Tab) 40 mg PO QAM ROSA M Stop: 06/14/22 08:59 Last Admin: 05/20/22 08:01 Dose: 40 mg Collagenase (Collagenase Oint 30 Gm Tube) 1 appln EXT DAILY ROSA M Stop: 06/14/22 08:59 Last Admin: 05/19/22 07:35 Dose: Not Given Dextrose (Dextrose 50% 50 Ml Syringe) 25 - 50 ml IV UD PRN; Protocol PRN Reason: Hypoglycemia Protocol Stop: 06/13/22 18:24 Last Admin: 05/16/22 11:55 Dose: 50 ml Fluconazole (Fluconazole 100 Mg Tab) 200 mg PO QAM ROSA M Stop: 07/03/22 08:59 Last Admin: 05/26/22 08:24 Dose: 200 mg Gabapentin (Gabapentin 100 Mg Cap) 100 mg PO QAM ROSA M Stop: 06/14/22 08:59 Last Admin: 05/26/22 08:25 Dose: 100 mg Gabapentin (Gabapentin 100 Mg Cap) 200 mg PO HS ROSA M Stop: 06/18/22 20:59 Last Admin: 05/20/22 20:56 Dose: 200 mg Glucagon (Glucagon For Inj 1 Mg Vial) 1 mg SQ UD PRN; Protocol PRN Reason: Hypoglycemia Protocol Stop: 06/13/22 18:24 Glucose (Glucose 40% Gel 15 Gm Tube) 15 - 30 gm PO UD PRN; Protocol PRN Reason: Hypoglycemia Protocol Stop: 06/13/22 18:24 Glucose (Glucose 10 Tab/Tube) 4 - 8 tab PO UD PRN; Protocol PRN Reason: Hypoglycemia Treatment Stop: 06/13/22 18:24 Hydromorphone HCl (Hydromorphone Inj 0.5 Mg/0.5 Ml Syr) 0.25 mg IV Q6H PRN PRN Reason: Pain Stop: 06/08/22 11:26 Last Admin: 05/25/22 21:45 Dose: 0.25 mg Daptomycin 550 mg/ Syringe 11 mls @ 5.5 mls/min IV MoWe@1400 ROSA M; Protocol Stop: 07/05/22 13:59 Last Admin: 05/26/22 13:49 Dose: 5.5 mls/min Daptomycin 800 mg/ Syringe 16 mls @ 8 mls/min IV Fr@1400 ROSA M; Protocol Stop: 07/02/22 13:59 Last Admin: 05/21/22 13:54 Dose: 8 mls/min Heparin Sodium/Dextrose (Heparin Sodium/Dextrose) 25,000 units in 500 mls @ 23 mls/hr IV .[id number] ROSA M; Protocol Stop: 06/20/22 19:14 Last Titration: 05/23/22 13:20 Dose: Infused Cefepime HCl 1,000 mg/ Syringe 11.3 mls @ 5.5 mls/min IV Q24H ROSA M; Protocol Stop: 07/03/22 17:59 Sodium Chloride (Nss 1000ml) 1,000 mls @ 0 mls/hr IV .Q0M PRN PRN Reason: For Hemodialysis Use ONLY Stop: 05/26/22 19:43 Insulin Aspart (Insulin Aspart Per Unit) 0 units SC ACHS [facility]; Protocol Stop: 06/20/22 11:29 Last Admin: 05/26/22 12:08 Dose: 12 units Insulin Glargine (Lantus Per Unit Charge) 15 units SQ HS ROSA M Stop: 06/24/22 20:59 Last Admin: 05/25/22 21:33 Dose: 15 units Lactobacillus Acidophilus (Advanced Probiotic 1250 Mg Capsule) 2 cap PO DAILY [facility] Stop: 06/23/22 16:44 Last Admin: 05/26/22 08:25 Dose: 2 cap Latanoprost (Latanoprost 0.005% Op Soln 2.5 Ml Btl) 1 drops OP QPM [facility] Stop: 06/13/22 20:59 Last Admin: 05/25/22 19:53 Dose: 1 drops Levothyroxine Sodium (Levothyroxine Sodium 150 Mcg Tablet) 150 mcg PO DAILYBB ROSA M Stop: 06/21/22 06:29 Last Admin: 05/26/22 06:10 Dose: 150 mcg Metoprolol Succinate (Metoprolol Succ 25mg Ext Rel Tab) 25 mg PO QAM [facility] Stop: 06/14/22 08:59 Last Admin: 05/26/22 08:25 Dose: Not Given Midodrine (Midodrine Hcl 10 Mg Tab) 10 mg PO TID@0800,1200,1700 [facility] Stop: 06/21/22 03:19 Last Admin: 05/26/22 12:12 Dose: 10 mg Miscellaneous (Carbohydrates For Hypoglycemia ) 15 - 30 gm PO UD PRN PRN Reason: Hypoglycemia Protocol Stop: 06/13/22 18:24 Miscellaneous Information (Pharmacy Glycemic Mgmt Consult) 1 each N/A UD PRN PRN Reason: Consult Stop: 06/22/22 17:05 Nitroglycerin (Nitroglycerin Sl 0.4 Mg/Tab Tab) 0.4 mg SL PRN PRN PRN Reason: Chest Pain Stop: 06/17/22 18:44 Ondansetron HCl (Ondansetron Inj 2 Mg/Ml 2 Ml Vial) 4 mg IV Q6H PRN PRN Reason: Nausea Stop: 06/13/22 18:19 Last Admin: 05/26/22 12:49 Dose: 4 mg Oxycodone HCl (Oxycodone Hcl Ir 5 Mg Tab (Immediate Release)) 2.5 mg PO DAILY PRN PRN Reason: Pain Stop: 05/31/22 03:56 Last Admin: 05/25/22 19:52 Dose: 2.5 mg Pantoprazole Sodium (Pantoprazole 40 Mg Tab) 40 mg PO DAILY [facility] Stop: 06/14/22 08:59 Last Admin: 05/26/22 08:24 Dose: 40 mg Ropinirole HCl (Ropinirole Hcl 0.25 Mg Tablet) 0.25 mg PO HS ROSA M Stop: 06/17/22 20:59 Last Admin: 05/25/22 19:53 Dose: 0.25 mg (1) Osteomyelitis Osteomyelitis location: unspecified site Osteomyelitis type: unspecified type Qualified Code(s): M86.9 - Osteomyelitis, unspecified
[2022-05-26] MEDS: CEFEPIME 1,000 MG in SYRINGE 0 ML IV SCH (18:17)
[2022-05-26] MEDS: LATANOPROST 0.005% OP SOLN 2.5 ML BTL OP SCH (20:50)
[2022-05-26] MEDS: rOPINIRole HCL 0.25 MG TABLET PO SCH (20:51)
[2022-05-26] MEDS: LANTUS PER UNIT CHARGE SQ SCH (21:02)
[2022-05-27] MEDS: oxyCODONE HCL IR 5 MG TAB (IMMEDIATE RELEASE) PO PRN (00:34)
[2022-05-27] MEDS: LEVOTHYROXINE SODIUM 150 MCG TABLET PO SCH (05:37)
[2022-05-27] MEDS: INSULIN ASPART PER UNIT SC SCH ×4 (05:43→21:07)
[2022-05-27 06:12] LABS: Basophils # (auto) 0.02 K/uL (0-0.2); Basophils % (auto) 0.3 %; Eosinophils # (auto) 0.18 K/uL (0-0.50); Eosinophils % (auto) 2.5 %; Hematocrit (blood only) 24.4 % (34.1-44.9); Hemoglobin 7.6 g/dl (12.0-16.0); Immature Granulocytes # (auto) 0.07 K/uL (0.00-0.02); Lymphocytes # (auto) 0.82 K/uL (1.2-3.4); Lymphocytes % (auto) 11.4 %; Mean Corpuscular Hemoglobin 30.5 pg (25.0-34.0); Mean Corpuscular Hgb Conc 31.1 g/dL (32.0-36.0); Mean Platelet Volume 11.8 fL (9.4-12.3); Monocytes # (auto) 0.73 K/uL (0.24-0.82); Monocytes % (auto) 10.2 %; Neutrophils # (auto) 5.37 K/uL (1.4-6.5); Neutrophils % (auto) 74.6 %; Nucleated RBC # (auto) 0.02 K/uL (0-0); Nucleated RBC % (auto) 0.3 %; Platelet Count 155 K/uL (130-400); RDW Coefficient of Variation 23.8 % (11.5-14.5); RDW Standard Deviation 82.1 fL (36.4-46.3); Red Blood Count 2.49 M/uL (3.93-5.22); White Blood Count 7.19 K/ul (4.8-10.8)
[2022-05-27 06:59] LABS: Vitamin B12 > 1500 pg/ml (180-914)
[2022-05-27 07:01] LABS: Macrocytosis Present; Stomatocytes 1+; Target Cells 1+
[2022-05-27 07:02] LABS: Vitamin D, 25 Hydrox 49.4 ng/ml (30-100)
[2022-05-27 07:25] LABS: Albumin Level 2.5 gm/dl (3.4-5.0); BUN Creatinine Ratio 7.6 (10-20); Calcium 8.2 mg/dl (8.5-10.1); Creatinine Clr Calc Pharmacy 30.5 ml/min; Est GFR (African American) 32.3 ml/min; Est GFR (Non-African American) 27.9 ml/min; Phosphorus 2.7 mg/dl (2.5-4.9); Potassium 3.6 mmol/L (3.5-5.1)
--- NOTE | 2022-05-27 07:48 | History & Physical Bridge Note ---
Date of Service May 27, 2022 History & Physical Bridge Note I have examined the patient, reviewed the History & Physical and in the interval since the performance of the History & Physical I have noted the following changes of clinical significance: no changes noted Patient alert coherent this morning told her over the operative procedure she would like to proceed accordingly we will have her sign an operative permit in the preop area She understands that we are just going to debride the area to try to get rid of all the tissue and hopefully will will be able to tolerate a VAC system that would be applied a few days after surgery
[2022-05-27] MEDS ORDERED: LABETALOL HCL IV 5 MG/ML 20ML IV PRN (13:21)
[2022-05-27] MEDS ORDERED: HYDROmorphone INJ 1 MG/ML SYRINGE IV PRN (13:21)
[2022-05-27] MEDS ORDERED: ePHEDrine sulfate 50 MG/ML AMP IV PRN (13:21)
[2022-05-27] MEDS ORDERED: ATROPINE SULFATE 0.1 MG/ML 10ML SYR IV PRN (13:21)
[2022-05-27] MEDS ORDERED: ONDANSETRON INJ 2 MG/ML 2 ML VIAL IV PRN (13:21)
[2022-05-27] MEDS ORDERED: PHENYLEPHRINE 100MCG/ML 5ML SYR IV PRN (13:21)
[2022-05-27] MEDS ORDERED: fentaNYL citrate 100 MCG/2 ML VIAL IV PRN (13:21)
--- NOTE | 2022-05-27 13:24 | Anesthesiology Consultation ---
Date of Service May 27, 2022 Assessment & Plan (1) Encounter for pre-operative examination: Chart Review Chart Review: Acceptable Risk for Surgery (necessary surgery) and Patient NOT seen in Pre Admission Testing Consults Requested none History Surgery Operation Date: 05/18/22 07:15 Proposed Procedures p Debridement Sacral Ulcer Stage 4 - Shawn Baldwin MD, FACS Operation Date: 05/20/22 11:40 Proposed Procedures p Sacral Decubitus Debridement with Biopsy - Shawn Baldwin MD, FACS Operation Date: 05/27/22 12:45 Proposed Procedures p Debridement of Sacral Ulcer with Bone Biopsy - hSawn Baldwin MD, FACS Height/Weight Height: 5 ft 3 in Weight: 84.3 kg Allergies Allergy/AdvReac Type Severity Reaction Status Date / Time cephalexin Allergy Unknown HIVES Verified 05/26/22 11:35 fluorescein Allergy Unknown EYE Verified 02/15/22 11:16 SWELLING AND THROAT SWELLING lisinopril Allergy Unknown "CHOKING" Verified 02/15/22 11:16 meperidine Allergy Unknown NAUSEA Verified 02/15/22 11:16 Penicillins Allergy Unknown Rash Verified 05/14/22 15:16 Medications Home Medications Medication Instructions Recorded Confirmed Last Taken Daptomycin Iv 750 mg IV .Q FRI 05/14/22 05/14/22 Unknown atorvastatin 40 mg tablet 40 mg PO QAM 05/14/22 05/14/22 Unknown brimonidine 0.2 %-timolol 0.5 % 1 drp [facility] 05/14/22 05/14/22 Unknown eye drops daptomycin 500 mg intravenous 500 mg IV .ONCE A DAY ON 05/14/22 05/14/22 Unknown solution fluconazole 200 mg tablet 200 mg PO QAM 05/14/22 05/14/22 Unknown furosemide 20 mg tablet (Lasix) 20 mg PO QAM 05/14/22 05/14/22 Unknown gabapentin 300 mg capsule 300 mg PO HS 05/14/22 05/14/22 Unknown hydroxyzine HCl 25 mg tablet 25 mg PO Q6 PRN Anxiety 05/14/22 05/14/22 Unknown insulin aspart U-100 100 unit/mL 0 unit subcut .PM MEAL 05/14/22 05/14/22 U nknown (3 mL) subcutaneous pen (Novolog Flexpen U-100 Insulin aspart) insulin glargine 100 unit/mL (3 40 unit subcut QAM 05/14/22 05/14/22 Unknown mL) subcutaneous pen (David Daugherty U-100 Insulin) latanoprost 0.005 % eye drops 1 drp OPB HS 05/14/22 05/14/22 Unknown levothyroxine 137 mcg tablet 137 mcg PO DAILY 05/14/22 05/14/22 Unknown loperamide 2 mg capsule 2 mg PO DIRECTED PRN Diarrhea 05/14/22 05/14/22 Unknown midodrine 5 mg tablet 5 mg PO TID 05/14/22 05/14/22 Unknown nitroglycerin 0.4 mg sublingual 0.4 mg sublingual DIRECTED PRN 05/14/22 05/14/22 Unknown tablet (Nitrostat) Chest Pain ondansetron HCl 4 mg tablet 4 mg PO DIRECTED PRN Nausea 05/14/22 05/14/22 Unknown oxycodone 5 mg/5 mL oral solution 2.5 mg PO DAILY PRN Severe Pain 05/14/22 05/14/22 Unknown (Scale Score 7-10) pantoprazole 40 mg tablet,delayed 40 mg PO DAILY 05/14/22 05/14/22 Unknown release ropinirole 0.25 mg tablet 0.25 mg PO HS 05/14/22 05/14/22 Unknown sodium hypochlorite 0.25 % solution 1 applic topical DAILY 05/14/22 05/14/22 Unknown triamcinolone acetonide 0.1 % 1 applic topical DIRECTED 05/14/22 05/14/22 Unknown topical cream Active Medications Generic Name Dose Route Start Last Admin Trade Name Tom PRN Reason Stop Dose Admin Atorvastatin Calcium 40 mg 05/15/22 09:00 05/20/22 08:01 Atorvastatin 40 Mg Tab PO 06/14/22 08:59 40 mg QAM ROSA M Administration Collagenase 1 appln 05/15/22 09:00 05/19/22 07:35 Collagenase Oint 30 Gm Tube EXT 06/14/22 08:59 Not Given DAILY ROSA M Dextrose 25 - 50 ml 05/14/22 18:25 05/16/22 11:55 Dextrose 50% 50 Ml Syringe IV 06/13/22 18:24 50 ml UD PRN Administration Hypoglycemia Protocol Protocol Fluconazole 200 mg 05/22/22 09:00 05/26/22 08:24 Fluconazole 100 Mg Tab PO 07/03/22 08:59 200 mg QAM ROSA M Administration Gabapentin 100 mg 05/15/22 09:00 05/26/22 08:25 Gabapentin 100 Mg Cap PO 06/14/22 08:59 100 mg QAM ROSA M Administration Gabapentin 200 mg 05/19/22 21:00 05/20/22 20:56 Gabapentin 100 Mg Cap PO 06/18/22 20:59 200 mg HS ROSA M Administration Daptomycin 550 mg/ Syringe 11 mls @ 5.5 mls/min 05/24/22 14:00 05/26/22 13:49 IV 07/05/22 13:59 5.5 mls/min MoWe@1400 ROSA M Administration Protocol Daptomycin 800 mg/ Syringe 16 mls @ 8 mls/min 05/21/22 14:00 05/21/22 13:54 IV 07/02/22 13:59 8 mls/min Fr@1400 ROSA M Administration Protocol Heparin Sodium/Dextrose 25,000 units in 500 mls @ 23 mls/hr 05/21/22 19:15 05/23/22 13:20 Heparin Sodium/Dextrose IV 06/20/22 19:14 Infused .[id number] ROSA M Titration Protocol 1,150 UNITS/HR Cefepime HCl 1,000 mg/ Syringe 11.3 mls @ 5.5 mls/min 05/26/22 18:00 05/26/22 18:17 IV 07/03/22 17:59 5.5 mls/min Q24H ROSA M Administration Protocol Insulin Aspart 0 units 05/21/22 11:30 05/27/22 11:49 Insulin Aspart Per Unit SC 06/20/22 11:29 2 units ACHS ROSA M Administration Protocol Insulin Glargine 15 units 05/25/22 21:00 05/26/22 21:02 Lantus Per Unit Charge SQ 06/24/22 20:59 15 units HS ROSA M Administration Lactobacillus Acidophilus 2 cap 05/24/22 16:45 05/26/22 08:25 Advanced Probiotic 1250 Mg Capsule PO 06/23/22 16:44 2 cap DAILY ROSA M Administration Latanoprost 1 drops 05/14/22 21:00 05/26/22 20:50 Latanoprost 0.005% Op Soln 2.5 Ml Btl OP 06/13/22 20:59 1 drops QPM ROSA M Administration Levothyroxine Sodium 150 mcg 05/22/22 06:30 05/27/22 05:37 Levothyroxine Sodium 150 Mcg Tablet PO 06/21/22 06:29 150 mcg DAILYBB ROSA M Administration Metoprolol Succinate 25 mg 05/15/22 09:00 05/26/22 08:25 Metoprolol Succ 25mg Ext Rel Tab PO 06/14/22 08:59 Not Given QAM ROSA M Midodrine 10 mg 05/22/22 03:20 05/26/22 18:17 Midodrine Hcl 10 Mg Tab PO 06/21/22 03:19 10 mg TID@0800,1200,1700 ROSA M Administration Ondansetron HCl 4 mg 05/14/22 18:20 05/26/22 12:49 Ondansetron Inj 2 Mg/Ml 2 Ml Vial IV 06/13/22 18:19 4 mg Q6H PRN Administration Nausea Oxycodone HCl 2.5 mg 05/17/22 03:57 05/27/22 00:34 Oxycodone Hcl Ir 5 Mg Tab (Immediate Release) PO 05/31/22 03:56 2.5 mg DAILY PRN Administration Pain Pantoprazole Sodium 40 mg 05/15/22 09:00 05/26/22 08:24 Pantoprazole 40 Mg Tab PO 06/14/22 08:59 40 mg DAILY ROSA M Administration Ropinirole HCl 0.25 mg 05/18/22 21:00 05/26/22 20:51 Ropinirole Hcl 0.25 Mg Tablet PO 06/17/22 20:59 0.25 mg HS ROSA M Administration NPO Date Last Intake of Fluids: 05/26/22 Time Last Intake of Fluids: 18:00 Date Last Intake of Solids: 05/26/22 Time Last Intake of Solids: 18:00 Past Medical History Medical History Accelerating angina Anemia Anemia due to stage 5 chronic kidney disease treated with erythropoietin Atherosclerosis of [place] arteries of extremities with rest pain, left leg Cancer of anorectal junction Cat bite of left forearm Cervical cancer Chronic lower GI bleeding Chronic radiation dermatitis Chronic stable angina CKD (chronic kidney disease) stage 5, GFR less than 15 ml/min CKD, patient preferred treatment modality in-center hemodialysis Closed fracture of phalanx of left fifth toe Colonic polyp Coronary artery disease 50% lad stenosis, an 80% obtuse marginal stenosis, and a 50% PDA stenosis. It should be noted her PDA arose from her left circumflex. Demand ischemia of myocardium DM type 2 with diabetic peripheral neuropathy Encounter for colorectal cancer screening 02/10/07 ESRD (end stage renal disease) on dialysis Heart failure with preserved ejection fraction, borderline, class II History of treatment of incomplete miscarriage x3 History of hyperbaric oxygen therapy 07/2011, 11/2011, 60 treatments. History of rectal or anal cancer HTN (hypertension) Hx of barium enema Hx of mammogram Hyperlipidemia Hyperparathyroidism Hyponatremia Hypothyroidism Injection of surface of both eyes Injection of eye drug, Lucentis 0.3mg by Dr. Taveras Iron deficiency anemia due to chronic blood loss Major depressive disorder Melanoma of back Myocardial infarction Non-compliance Other pancytopenia PAD (peripheral artery disease) Proliferative diabetic retinopathy of both eyes without macular edema associated with diabetes mellitus due to underlying condition Radiation proctitis Retinal edema Retinal lesion S/P arteriogram of extremity Thrombocytopenia Type 2 diabetes mellitus Uncontrolled type 2 diabetes mellitus with retinopathy of left eye, with long- term current use of insulin Uterine cancer Vitreous hemorrhage of right eye Past Surgical History Surgical History H/O cataract removal with insertion of prosthetic lens H/O colonoscopy adhesions and radiation colitis precluded advancing scope through the sigmoid. Exam discontinued. H/O eye surgery partial removal of eye fluid, bilateral H/O laparoscopy appendectomy History of breast surgery left breast, 1982 History of insertion of tunneled central venous catheter (CVC) with port History of revascularization procedure of lower extremity Hx of angioplasty Hx of biopsy benign right breast biopsy about 20 years ago. Hx of colonoscopy 08/31/2017, multiple colonic angioectasias from prior radiation/narrowed and scarred left colon from multiple prior surgeries/colonoscopy flexible proximal diagnositic performed by Chandler Gill. S/P laser trabeculoplasty of eye S/P tonsillectomy Status post total abdominal hysterectomy Social History Smoking Status: Never smoker Hx Alcohol Use: No Hx Substance Use: No Physical Exam Vital Signs Last Vital Signs Temp 36.7 C 05/27/22 12:50 Pulse 84 05/27/22 12:50 Resp 18 05/27/22 12:50 BP 108/47 L 05/27/22 12:50 Pulse Ox 100 05/27/22 12:50 O2 Del Method 05/27/22 12:50 O2 Flow Rate 2 05/27/22 12:50 FiO2 40 05/20/22 09:52 Testing Laboratory Results 05/27/22 06:01 05/27/22 06:01 PT 14.2 Seconds (9.0-12.0) H 05/24/22 07:05 INR 1.4 (0.9-1.1) H 05/24/22 07:05 APTT 42.5 Seconds (21.0-31.0) H 05/22/22 07:19 Hemoglobin A1c 5.9 % (4.5-5.6) H 05/15/22 05:59 Blood Type A Positive 05/22/22 07:19 Antibody Screen NEGATIVE 05/22/22 07:19 05/17/22 09:35 Aerobic Blood Culture - Final Blood No growth in Aerobic bottle after 5 days. Anaerobic Blood Culture - Final No growth in Anaerobic bottle after 5 days. 05/17/22 09:35 Aerobic Blood Culture - Final Blood No growth in Aerobic bottle after 5 days. Anaerobic Blood Culture - Final No growth in Anaerobic bottle after 5 days. 05/14/22 16:04 Aerobic Blood Culture - Final Blood No growth in Aerobic bottle after 5 days. Anaerobic Blood Culture - Final 05/14/22 16:03 Aerobic Blood Culture - Final Blood No growth in Aerobic bottle after 5 days. Anaerobic Blood Culture - Final 05/27/22 05/27/22 05/27/22 13:05 11:06 07:31 POC Glucose 159 H 167 H 150 H 05/27/22 05:38 POC Glucose 179 H Electrocardiogram Date: 05/24/22 DICTATED BY:Jona Hua MD Test Reason : Blood Pressure : / mmHG Vent. Rate : 075 BPM Atrial Rate : 075 BPM P-R Int : 186 ms QRS Dur : 104 ms QT Int : 396 ms P-R-T Axes : 039 032 231 degrees QTc Int : 442 ms Normal sinus rhythm Low voltage QRS Possible Anterolateral infarct (cited on or before 18-MAY-2022) Abnormal ECG When compared with ECG of 24-MAY-2022 06:09, (unconfirmed) No significant change was found Confirmed by Jona Hua ([id number]) on 05/24/2022 12:35:26 PM Referred By: REFERRED SELF Confirmed By:Dieudonne Hua Chest X-Ray Date: 05/18/22 Echocardiogram Date: 05/17/22 EF: 35-40 LV Function: dysfunctional RWMA: + hypokinetic (global) Other Findings: + diastolic dysfunction (grade 2)
[2022-05-27] MEDS ORDERED: LIDOCAINE 2% 20 MG/ML 5 ML SYR IV ONE (14:17)
[2022-05-27] MEDS ORDERED: PROPOFOL IV EMULSION 10 MG/ML 20 ML VIAL IV ONE (14:17)
[2022-05-27] MEDS ORDERED: CISATRACURIUM BESYLATE IV SOLN 2 MG/ML 10 ML VIAL IV ONE ×2 (14:17→14:21)
[2022-05-27] MEDS ORDERED: fentaNYL citrate 100 MCG/2 ML VIAL ONE (14:17)
[2022-05-27] MEDS ORDERED: MIDAZOLAM HCL 1 MG/ML 2ML VIAL ONE (14:18)
[2022-05-27] MEDS ORDERED: EPINEPHrine INJ 1 MG/ML AMP ONE (14:19)
[2022-05-27] MEDS ORDERED: BUPIVACAINE 0.5 % 5 MG/1 ML MPF 30ML VIAL ONE (14:20)
[2022-05-27] MEDS ORDERED: GELATIN SPONGE 12-7MM ONE (14:20)
[2022-05-27] MEDS ORDERED: PHENYLEPHRINE HCL 10 MG/ML VIAL ONE (14:29)
[2022-05-27] MEDS: MIDODRINE HCL 10 MG TAB PO SCH ×3 (14:29→17:48)
[2022-05-27] MEDS ORDERED: ePHEDrine sulfate 50 MG/ML AMP ONE (14:30)
[2022-05-27] MEDS ORDERED: WATER, STERILE FOR INJ 10 ML VIAL ONE (14:52)
[2022-05-27] MEDS ORDERED: KETAMINE 50 MG/5 ML SYRINGE ONE (14:56)
[2022-05-27] MEDS ORDERED: VASOPRESSIN 20 UNIT/ML VIAL ONE (15:23)
[2022-05-27] MEDS ORDERED: SURGICEL ABSORB HEMOSTAT 2IN X 14IN TOP ONE (15:27)
[2022-05-27] MEDS ORDERED: GLYCOPYRROLATE 0.2 MG/ML VIAL ONE (15:28)
[2022-05-27] MEDS ORDERED: NEOSTIGMINE METHYLSULFATE 1 MG/ML 10ML VIAL ONE (15:28)
[2022-05-27] MEDS ORDERED: ONDANSETRON INJ 2 MG/ML 2 ML VIAL ONE (15:28)
--- NOTE | 2022-05-27 15:36 | Hospitalist Progress Note ---
Date of Service May 27, 2022 Assessment & Plan (1) Sepsis: Plan: - patient with tachycardia, leukocytosis, lactic acidosis - source likely stage IV sacral ulcer with likely underlying osteomyelitis - broad spectrum abx with intravenous cefepime, daptomycin and oral fluconazole - surgical consult-recommended surgical debridement, however, patient declined before but as of 05/25/22 she seems to be willing -Stayed in ICU and now in telemetry unit - debridement planned for 05/20 in am which she declined, Santyl also stopped. -Remained medically stable and the patient is wishing to have surgical debridement as of today that is 06-14 -Appreciate ID input and recommendation -The patient is now agreeable to go for surgical debridement with or without wound VAC -If surgical debridement is done antibiotic should be continued for 4 more weeks depending on the culture results. 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 3 times daily, plan to decrease to BID tomorrow Heparin drip held Also on usual metoprolol XL 25 mg daily Has been on amiodarone 200 mg daily and will need anticoagulation with Coumadin on discharge (4) Ulcer of sacral region, stage 4: Plan: plan as above. Debridement today as per surgery (5) Radiation necrosis of skin and subcutaneous: Plan: - plan as above (6) Acute hyponatremia: Plan: - likely due to sepsis and decrease po intake -improving, cont to monitor. -nephro following in this complex ESRD patient. Sodium 130--129 Monitor-sodium level is 134 as of 05/26/2022 (7) End-stage renal disease (ESRD): Plan: - has been on HD for the past year, per patient - HD catheter in right chest - no evidence of infection at catheter site - normal schedule is MWF -this past week was undergoing daily treatments with 3-3.5L UF removed each time on pressor support in preparation for surgical debridement of wound which she ultimately declined. (8) Diabetes: Plan: - on insulin at home -cont insulin protocol per ICU (9) Hypothyroid: Plan: - patient is hypothyroid on labs with TSH 22, FT4 <0.25 - unclear if patient taking medication appropriately - after dosing her with levothyroxine here she is euthyroid with TSH 2.0 (10) Anemia: Plan: - chronic anemia in the setting of ESRD and GI losses (reported but not observed) and phlebotomy - was reportedly getting ?EPO injections with HD per Patient - continue EPO per renal - no signs of active bleeding at this time -Hb drop occurred, however, wondering if this may have had something to do with hemoconcentration with so much UF being removed and then after she went into afib, we added back 1L NSS and rehydrated her prior to the "drop". -no active bleeding although +FOBT noted overnight. - will monitor for now Hemoglobin remaining stable 7.2, now 7.5 No signs of active bleeding Hemoglobin is dropped to 7.3-we will monitor and may need blood transfusion (11) Thrombocytopenia: Plan: - unclear chronicity - likely consumption in sepsis, ESRD, chronic illness - no signs of bleeding -resolved (12) Coagulopathy: Plan: - patient not on warfarin - in the setting of sepsis -DDx includes but not limited to DIC (less likely with elevated fibrinogen) vs poor nutrition. -cont to monitor 05/20: INR 2.0 INR is 1.4 as of 05/26/2022 Plan DVT ppx: Heparin drip on hold Code Status: changed to DNR after update by palliative doctor. She is not quite ready for hospice at this point and wants to keep going wt hemodialysis for now. Admission and Anticipated Discharge Date Admission Date: May 14, 2022 Subjective 05/25/2022 The patient was seen and examined in telemetry unit She complains to have bilateral leg pain but denies any chest pain, palpitation or shortness of breath Denies any abdominal pain, nausea and or vomiting Clinically looks depressed 05/26/2022 The patient was seen and examined in telemetry unit She has been feeling much better today though her blood pressure is low following getting Dilaudid IV Denies any significant symptoms She will be going for sacral wound debridement tomorrow 05/27/2022 The patient was seen and examined in telemetry unit She remains stable and awaiting surgical debridement of the sacral wound Denies any significant symptoms Review of Systems Review of Systems: All systems reviewed and are unremarkable except as noted below Physical Exam Physical Exam: Lying in bed comfortably but looks depressed Constitutional: well developed, well nourished, + ill appearing and + obese Eyes: PERRL, conjunctivae normal, anicteric sclerae ENMT: external ear and nose normal, oropharynx normal Neck: trachea midline, no thyromegaly Respiratory: no respiratory distress Auscultation: + diminished lung sounds and + crackles (Minimal crackles at the bases) Cardiovascular: Rate/Rhythm: regular rate and regular rhythm; not tachycardic Heart Sounds: normal S1 and normal S2; no murmur Extremities: + edema (1+ edema bilaterally) Gastrointestinal (Abdomen): Inspection/Auscultation: normal bowel sounds; + abdomen abnormal to inspection (Has colostomy bag in site to) and abdomen not distended Percussion/Palpation: abdomen soft; abdomen nontender Musculoskeletal: No acute arthritis involving any joint Neurologic: normal touch/pain/proprioception and moves all extremities Lymphatic: no cervical or axillary lymphadenopathy Results & Data Results & Data ([facility]) Vital Signs (Past 12 Hours) Vital Signs Temp Pulse Pulse Resp BP BP Pulse Ox 05/27/22 12:50 36.7 C 84 18 108/47 L 100 05/27/22 10:00 05/27/22 11:04 36.8 C 84 17 98/62 L 96 05/27/22 07:29 37.0 C 79 16 100/55 L 97 05/27/22 07:00 93 H O2 Del Method O2 Flow Rate 05/27/22 12:50 Nasal Cannula 2 05/27/22 10:00 Nasal Cannula 1 05/27/22 11:04 Nasal Cannula 1 05/27/22 07:29 Nasal Cannula 2 05/27/22 07:00 Laboratory Results Short CBC 05/27/22 Range/Units 06:01 WBC 7.19 (4.8-10.8) K/ul Hgb 7.6 L (12.0-16.0) g/dl Hct 24.4 L (34.1-44.9) % Plt Count 155 (130-400) K/uL BMP 05/27/22 06:01 Sodium 135 L Potassium 3.6 Chloride 101 Carbon Dioxide 27 BUN 14 Creatinine 1.84 H Glucose 174 H Calcium 8.2 L Cardiac Enzymes 05/27/22 Range/Units 06:01 Total Creatine Kinase 28 (26-192) U/L Liver Function 05/27/22 Range/Units 06:01 Albumin 2.5 L (3.4-5.0) gm/dl Medications Administered Current Inpatient Medications Amiodarone HCl (Amiodarone 200 Mg Tab) 200 mg PO DAILY [facility] Stop: 06/26/22 08:59 Atorvastatin Calcium (Atorvastatin 40 Mg Tab) 40 mg PO QAM [facility] Stop: 06/14/22 08:59 Last Admin: 05/20/22 08:01 Dose: 40 mg Atropine Sulfate (Atropine Sulfate 0.1 Mg/Ml 10ml Syr) 0.5 mg IV Q1M PRN PRN Reason: PACU Use-HR<40 &/or Bradycardi Stop: 05/27/22 21:21 Collagenase (Collagenase Oint 30 Gm Tube) 1 appln EXT DAILY [facility] Stop: 06/14/22 08:59 Last Admin: 05/19/22 07:35 Dose: Not Given Dextrose (Dextrose 50% 50 Ml Syringe) 25 - 50 ml IV UD PRN; Protocol PRN Reason: Hypoglycemia Protocol Stop: 06/13/22 18:24 Last Admin: 05/16/22 11:55 Dose: 50 ml Ephedrine Sulfate (Ephedrine Sulfate 50 Mg/Ml Amp) 5 mg IV Q5M PRN PRN Reason: PACU Use Only-SBP<90 mmHg Stop: 05/27/22 21:21 Fentanyl Citrate (Fentanyl Citrate 100 Mcg/2 Ml Vial) 25 mcg IV Q5M PRN PRN Reason: PACU Use Only-Pain Stop: 05/27/22 21:21 Fluconazole (Fluconazole 100 Mg Tab) 200 mg PO QAM [facility] Stop: 07/03/22 08:59 Last Admin: 05/26/22 08:24 Dose: 200 mg Gabapentin (Gabapentin 100 Mg Cap) 100 mg PO QAM [facility] Stop: 06/14/22 08:59 Last Admin: 05/26/22 08:25 Dose: 100 mg Gabapentin (Gabapentin 100 Mg Cap) 200 mg PO HS ROSA M Stop: 06/18/22 20:59 Last Admin: 05/20/22 20:56 Dose: 200 mg Glucagon (Glucagon For Inj 1 Mg Vial) 1 mg SQ UD PRN; Protocol PRN Reason: Hypoglycemia Protocol Stop: 06/13/22 18:24 Glucose (Glucose 40% Gel 15 Gm Tube) 15 - 30 gm PO UD PRN; Protocol PRN Reason: Hypoglycemia Protocol Stop: 06/13/22 18:24 Glucose (Glucose 10 Tab/Tube) 4 - 8 tab PO UD PRN; Protocol PRN Reason: Hypoglycemia Treatment Stop: 06/13/22 18:24 Hydromorphone HCl (Hydromorphone Inj 1 Mg/Ml Syringe) 0.25 mg IV Q5M PRN PRN Reason: PACU Use Only-Pain Stop: 05/27/22 21:21 Daptomycin 550 mg/ Syringe 11 mls @ 5.5 mls/min IV MoWe@1400 ROSA M; Protocol Stop: 07/05/22 13:59 Last Admin: 05/26/22 13:49 Dose: 5.5 mls/min Daptomycin 800 mg/ Syringe 16 mls @ 8 mls/min IV Fr@1400 ROSA M; Protocol Stop: 07/02/22 13:59 Last Admin: 05/21/22 13:54 Dose: 8 mls/min Heparin Sodium/Dextrose (Heparin Sodium/Dextrose) 25,000 units in 500 mls @ 23 mls/hr IV .[id number] ROSA M; Protocol Stop: 06/20/22 19:14 Last Titration: 05/23/22 13:20 Dose: Infused Cefepime HCl 1,000 mg/ Syringe 11.3 mls @ 5.5 mls/min IV Q24H [facility]; Protocol Stop: 07/03/22 17:59 Last Admin: 05/26/22 18:17 Dose: 5.5 mls/min Insulin Aspart (Insulin Aspart Per Unit) 0 units SC [facility]; Protocol Stop: 06/20/22 11:29 Last Admin: 05/27/22 11:49 Dose: 2 units Insulin Glargine (Lantus Per Unit Charge) 0 units SQ [facility]; Protocol Stop: 06/26/22 20:59 Labetalol HCl (Labetalol Hcl Iv 5 Mg/Ml 20ml) 5 mg IV Q5M PRN PRN Reason: PACU Use-SBP>160 or DBP>100 Stop: 05/27/22 21:22 Lactobacillus Acidophilus (Advanced Probiotic 1250 Mg Capsule) 2 cap PO DAILY [facility] Stop: 06/23/22 16:44 Last Admin: 05/26/22 08:25 Dose: 2 cap Latanoprost (Latanoprost 0.005% Op Soln 2.5 Ml Btl) 1 drops OP QPM [facility] Stop: 06/13/22 20:59 Last Admin: 05/26/22 20:50 Dose: 1 drops Levothyroxine Sodium (Levothyroxine Sodium 150 Mcg Tablet) 150 mcg PO DAILYBB [facility] Stop: 06/21/22 06:29 Last Admin: 05/27/22 05:37 Dose: 150 mcg Metoprolol Succinate (Metoprolol Succ 25mg Ext Rel Tab) 25 mg PO QAM [facility] Stop: 06/14/22 08:59 Last Admin: 05/26/22 08:25 Dose: Not Given Midodrine (Midodrine Hcl 10 Mg Tab) 10 mg PO TID@0800,1200,1700 [facility] Stop: 06/21/22 03:19 Last Admin: 05/27/22 14:29 Dose: Not Given Miscellaneous (Carbohydrates For Hypoglycemia ) 15 - 30 gm PO UD PRN PRN Reason: Hypoglycemia Protocol Stop: 06/13/22 18:24 Miscellaneous Information (Pharmacy Glycemic Mgmt Consult) 1 each N/A UD PRN PRN Reason: Consult Stop: 06/22/22 17:05 Nitroglycerin (Nitroglycerin Sl 0.4 Mg/Tab Tab) 0.4 mg SL PRN PRN PRN Reason: Chest Pain Stop: 06/17/22 18:44 Ondansetron HCl (Ondansetron Inj 2 Mg/Ml 2 Ml Vial) 4 mg IV Q6H PRN PRN Reason: Nausea Stop: 06/13/22 18:19 Last Admin: 05/26/22 12:49 Dose: 4 mg Ondansetron HCl (Ondansetron Inj 2 Mg/Ml 2 Ml Vial) 4 mg IV ONCE PRN PRN Reason: PACU Use Only-Nausea/Vomiting Stop: 05/27/22 21:21 Oxycodone HCl (Oxycodone Hcl Ir 5 Mg Tab (Immediate Release)) 2.5 mg PO DAILY PRN PRN Reason: Pain Stop: 05/31/22 03:56 Last Admin: 05/27/22 00:34 Dose: 2.5 mg Pantoprazole Sodium (Pantoprazole 40 Mg Tab) 40 mg PO DAILY [facility] Stop: 06/14/22 08:59 Last Admin: 05/26/22 08:24 Dose: 40 mg Phenylephrine HCl (Phenylephrine 100mcg/Ml 5ml Syr) 100 mcg IV Q5M PRN PRN Reason: PACU Use Only-SBP<90 or HR>70 Stop: 05/27/22 21:22 Ropinirole HCl (Ropinirole Hcl 0.25 Mg Tablet) 0.25 mg PO HS [facility] M Stop: 06/17/22 20:59 Last Admin: 05/26/22 20:51 Dose: 0.25 mg (1) Osteomyelitis Osteomyelitis location: unspecified site Osteomyelitis type: unspecified type Qualified Code(s): M86.9 - Osteomyelitis, unspecified
--- NOTE | 2022-05-27 15:44 | Post Operative Brief Note ---
PG Immediate Post Op with CF Date of Surgery May 27, 2022 Pre & Post Diagnosis Operation Date: 05/18/22 07:15 <No data on this case meets the specified criteria> Operation Date: 05/20/22 11:40 <No data on this case meets the specified criteria> Operation Date: 05/27/22 12:45 Pre-Op Diagnosis: Ulcer of sacral region, stage 4, Osteomyolitis Post-Op Diagnosis: Ulcer of sacral region, stage 4, Osteomyolitis I identified the patient and participated in the time-out.: Yes Procedure Operation Date: 05/18/22 07:15 <No data on this case meets the specified criteria> Operation Date: 05/20/22 11:40 <No data on this case meets the specified criteria> Operation Date: 05/27/22 12:45 Actual Procedures p Debridement of Sacral Ulcer with Bone Biopsy(Not Applicable) - Shawn Baldwin MD, FACS Surgeon Shawn Baldwin MD, FACS Cartridge Filler fidelia so Estimated Blood Loss 50 Findings Consistent with Post-Op Diagnosis Specimens Specimen Description: Culture 1. sacral bone biopsy
--- NOTE | 2022-05-27 16:24 | Anesthesiology Progress Note ---
Date of Service May 27, 2022 Anesthesia Post Procedure Vital Signs Vital Signs: Temp Pulse Pulse Pulse Pulse Resp BP 05/27/22 12:50 36.7 C 84 18 05/27/22 10:00 05/27/22 11:04 36.8 C 84 17 05/27/22 07:29 37.0 C 79 16 05/27/22 07:00 93 H 05/27/22 03:28 37.0 C 88 19 05/26/22 23:00 78 05/26/22 20:00 05/26/22 22:43 37.0 C 81 18 05/26/22 19:25 36.3 C L 83 19 05/26/22 18:25 36.8 C 77 05/26/22 17:30 62 94/36 L 05/26/22 17:00 63 94/76 L 05/26/22 16:30 73 97/43 L BP BP Pulse Ox O2 Del Method O2 Flow Rate 05/27/22 12:50 108/47 L 100 Nasal Cannula 2 05/27/22 10:00 Nasal Cannula 1 05/27/22 11:04 98/62 L 96 Nasal Cannula 1 05/27/22 07:29 100/55 L 97 Nasal Cannula 2 05/27/22 07:00 05/27/22 03:28 96/56 L 93 Nasal Cannula 1 05/26/22 23:00 05/26/22 20:00 Nasal Cannula 1 05/26/22 22:43 104/64 99 Nasal Cannula 1 05/26/22 19:25 93/52 L 96 Nasal Cannula 1 05/26/22 18:25 103/46 L 05/26/22 17:30 05/26/22 17:00 05/26/22 16:30 Pain Intensity Buttock: Pain Intensity: 7 Left Knee: Pain Intensity: 8 Transfer of Care Handoff Completed per policy Notes Mental Status: alert / awake / arousable and participated in evaluation Patient Amnestic to Procedure: Yes Nausea / Vomiting: adequately controlled Pain: adequately controlled Airway Patency, RR, SpO2: stable & adequate BP & HR: stable & adequate Hydration State: stable & adequate Anesthetic Complications: no major complications apparent and Pt Satisfied with anesthetic care Notes: Patient awake, conversant and denies respiratory distress. VSS.
--- NOTE | 2022-05-27 16:26 | Operative Report ---
PG Post Operative Report Pre & Post Diagnosis Operation Date: 05/18/22 07:15 <No data on this case meets the specified criteria> Operation Date: 05/20/22 11:40 <No data on this case meets the specified criteria> Operation Date: 05/27/22 12:45 Pre-Op Diagnosis: Ulcer of sacral region, stage 4, Osteomyolitis Post-Op Diagnosis: Ulcer of sacral region, stage 4, Osteomyolitis I identified the patient and participated in the time-out.: Yes Procedure Operation Date: 05/18/22 07:15 <No data on this case meets the specified criteria> Operation Date: 05/20/22 11:40 <No data on this case meets the specified criteria> Operation Date: 05/27/22 12:45 Actual Procedures p Debridement of Sacral Ulcer with Bone Biopsy(Not Applicable) - Shawn Baldwin MD, FACS The patient was brought into the operating theater general trach anesthesia was placed on the operating table prone position padding the arms neck lower extremities avoid any pressure the dressing was taken off the sacral area where the patient has significant necrosis obvious in the surrounding opening and down into the sacral area this point area was prepped Betadine solution and properly draped a timeout was had patient was identified we measured the defect which was 8 cm x 8 cm x 6 cm with significant skin eschar noted with the right buttock area from the exposed sacrum significant tissue necrosis extending anterior to the coccyx down towards the anal canal at this point we use electrocautery to circumferentially debride all the necrotic tissue mostly was confined to the right of the sacral and right buttock area we went onto the gluteal muscle coming off the sacrum or could only find there is some good viable tissue we freed up all the fibrous tissue on top of this sacrum that was ischemic and extended the dissection to the the depth of the and anterior to the coccyx we actually removed part of the coccyx along with the specimen for the debridement some bleeding both confined to the gluteal muscles on the left and right as we were dissecting was controlled with 3-0 silk suture and some Surgicel once we had freed all the necrotic tissue and fatty tissue we then remeasured the wound which at this time showed it to be 18 cm x 8 cm x 6 cm with undermining from 12 to 3 o'clock position right buttock area approximately 2 cm And using the rongeur we took biopsy of the sacrum for cultures The area was then irrigated with normal saline solution hemostasis was contr olled 2 inch plain gauze was placed in the wound followed by 4 x 4 gauze ABD pad Elastoplast and silk tape to hold the osteoclast in place procedure was tolerated well by the patient estimate blood loss 30 cc Addendum Claudia Thomas physician assistant toddler teacher was present throughout the case and helped the retraction exposure and wound closure Addendum spoke extensively with her after surgery indicating that with the radiation that she had 19 years ago for rectal cancer renal failure and unable to walk it would be unlikely that this wound will ever heal under normal circumstances we would have plastic surgery see her to consider muscular fascial flaps to heal the area Surgeon Shawn Baldwin MD, FACS Complaint Clerk fidelia thomas Estimated Blood Loss 50 Findings Consistent with Post-Op Diagnosis Extensive necrosis skin and subcutaneous tissue to the muscular fascial plane of both gluteal cluster Specimens Necrotic tissue from the debridement Biopsy of the sacrum for cultures Indications Tissue necrosis likely site of sepsis Description of Procedure merda I attest to the content of the Intraoperative Record and any orders documented therein. Any exceptions are noted below.
[2022-05-27] MEDS: METOPROLOL SUCC 25MG EXT REL TAB PO SCH (17:36)
[2022-05-27] MEDS ORDERED: ACETAMINOPHEN 1000 MG/100 ML IV IV PRN (17:46)
[2022-05-27] MEDS: FLUCONAZOLE 100 MG TAB PO SCH (17:48)
[2022-05-27] MEDS: ADVANCED PROBIOTIC 1250 MG CAPSULE PO SCH (17:49)
[2022-05-27] MEDS: PANTOprazole 40 MG TAB PO SCH (17:49)
[2022-05-27] MEDS: AMIODARONE 200 MG TAB PO SCH (17:49)
[2022-05-27] MEDS: GABAPENTIN 100 MG CAP PO SCH (17:49)
[2022-05-27] MEDS: CEFEPIME 1,000 MG in SYRINGE 0 ML IV SCH (18:33)
[2022-05-27] MEDS ORDERED: SODIUM CHLORIDE 0.9% 1000ML 500 ML IV ONE (19:05)
[2022-05-27] MEDS: LANTUS PER UNIT CHARGE SQ SCH (21:07)
[2022-05-27] MEDS: rOPINIRole HCL 0.25 MG TABLET PO SCH (21:09)
[2022-05-27] MEDS: LATANOPROST 0.005% OP SOLN 2.5 ML BTL OP SCH (21:53)
[2022-05-28] MEDS: LEVOTHYROXINE SODIUM 150 MCG TABLET PO SCH (05:55)
[2022-05-28 06:42] LABS: Basophils # (auto) 0.03 K/uL (0-0.2); Basophils % (auto) 0.5 %; Eosinophils # (auto) 0.18 K/uL (0-0.50); Eosinophils % (auto) 3.1 %; Hematocrit (blood only) 24.5 % (34.1-44.9); Hemoglobin 7.4 g/dl (12.0-16.0); Immature Granulocytes # (auto) 0.03 K/uL (0.00-0.02); Immature Granulocytes % (auto) 0.5 %; Lymphocytes # (auto) 0.67 K/uL (1.2-3.4); Lymphocytes % (auto) 11.7 %; Mean Corpuscular Hgb Conc 30.2 g/dL (32.0-36.0); Mean Corpuscular Volume 99.2 fL (80.0-100.0); Mean Platelet Volume 11.7 fL (9.4-12.3); Monocytes # (auto) 0.56 K/uL (0.24-0.82); Monocytes % (auto) 9.8 %; Neutrophils # (auto) 4.25 K/uL (1.4-6.5); Neutrophils % (auto) 74.4 %; Nucleated RBC # (auto) 0.03 K/uL (0-0); Nucleated RBC % (auto) 0.5 %; Platelet Count 155 K/uL (130-400); RDW Coefficient of Variation 23.4 % (11.5-14.5); RDW Standard Deviation 82.3 fL (36.4-46.3); Red Blood Count 2.47 M/uL (3.93-5.22); White Blood Count 5.72 K/ul (4.8-10.8)
[2022-05-28 07:14] LABS: Macrocytosis Present; Polychromasia 1+; Target Cells 2+
[2022-05-28 07:20] LABS: Albumin Level 2.4 gm/dl (3.4-5.0); BUN Creatinine Ratio 8.5 (10-20); Calcium 8.2 mg/dl (8.5-10.1); Creatinine Clr Calc Pharmacy 21.8 ml/min; Est GFR (African American) 21.3 ml/min; Est GFR (Non-African American) 18.3 ml/min; Phosphorus 4.1 mg/dl (2.5-4.9)
--- NOTE | 2022-05-28 07:27 | Surgery Progress Note ---
Date of Service May 28, 2022 Assessment & Plan (1) Ulcer of sacral region, stage 4: Plan: #1 POD #1 Status post debridement stage IV ulceration 18 x 8 cm operative findings were discussed with the Place a consult for the wound nurse to evaluate the sacral area with the hope of establishing a VAC system apparatus for her She was limited and restricted as far as oxycodone dose once a day at this time she certainly has more pain than 1 can handle without therefore was ordered to give her 1 every 6 hours as needed [facility] surgeon covering over the weekend Admission and Anticipated Discharge Date Admission Date: May 14, 2022 Subjective Complaining that she has pain and has not received any pain medicine the nurses refused to give it to her Physical Exam Physical Exam: She is not as coherent as she was yesterday drifting back and sort of a belligerent state with multiple complaints Results & Data ([facility]) Vital Signs (Past 12 Hours) Vital Signs Temp Pulse Pulse Resp BP Pulse Ox O2 Del Method 05/28/22 07:00 36.5 C 77 18 91/55 L 94 Room Air 05/28/22 03:00 36.4 C L 75 18 95/57 L 100 Nasal Cannula 05/28/22 01:10 71 05/27/22 23:46 36.4 C L 72 18 106/54 L 97 05/27/22 20:15 Nasal Cannula 05/27/22 19:28 84 18 98/63 L 95 Room Air O2 Flow Rate 05/28/22 07:00 05/28/22 03:00 05/28/22 01:10 05/27/22 23:46 05/27/22 20:15 1 05/27/22 19:28 PG Care Time/CCT Total # of Minutes Spent Total Time Spent with Patient: Total time spent is greater than 50% in coordination of care (as documented) at patient's floor/unit and/or counseling patient: Coding Level of Care Code None Diagnoses Ulcer of sacral region, stage 4 L98.429
[2022-05-28] MEDS: oxyCODONE/ACETAMINOPHEN 5mg/325mg TAB PO PRN ×3 (07:51→21:49)
[2022-05-28] MEDS: METOPROLOL SUCC 25MG EXT REL TAB PO SCH (07:53)
[2022-05-28] MEDS: AMIODARONE 200 MG TAB PO SCH (07:54)
[2022-05-28] MEDS: MIDODRINE HCL 10 MG TAB PO SCH ×3 (07:55→16:25)
[2022-05-28] MEDS: GABAPENTIN 100 MG CAP PO SCH (07:56)
[2022-05-28] MEDS: PANTOprazole 40 MG TAB PO SCH (08:08)
[2022-05-28] MEDS: ADVANCED PROBIOTIC 1250 MG CAPSULE PO SCH (08:09)
[2022-05-28] MEDS: FLUCONAZOLE 100 MG TAB PO SCH (08:09)
[2022-05-28] MEDS: INSULIN ASPART PER UNIT SC SCH ×4 (08:17→21:39)
[2022-05-28] MEDS ORDERED: EPOETIN ALFA 20,000 UNITS/ML VIAL IV SCH (09:00)
--- NOTE | 2022-05-28 09:25 | Pharmacy Report ---
Pharmacy Glycemic Short Note 2 - Date of Service May 28, 2022 - Glycemic Short BSG Results (Last 24 hours): 05/27/22 05/27/22 05/27/22 11:06 13:05 16:13 Glucose POC Glucose 167 H 159 H 149 H 05/27/22 05/27/22 05/28/22 18:04 20:14 06:20 Glucose 176 H POC Glucose 158 H 193 H 05/28/22 07:12 Glucose POC Glucose 190 H OUTPATIENT ANTIDIABETIC REGIMEN: * Basaglar 42 units HS - reports following [facility] clinic ASSESSMENT: 05/28/22 * Patient received total of 23 units of insulin yesterday, of which 15 units were basal * Fasting BSG 176 mg/dL - plan to titrate up basal by ~20% for this evening * Continue same CF/CR for now 05/26/22 * Blood sugars [phone]/dl so far today, tighten CF and CR * Continue basal at this time since it was just increased by 50% yesterday * Consider increasing basal tomorrow if fasting remains elevated 05/25/22 * Patient's BSGs yesterday were [phone] mg/dL. Fasting today is 175 mg/dL. * Patient received 20 units of insulin yesterday (10 units of basal and 10 units of bolus). * Fasting trending upwards so increase basal to 15 units. * Continue Novolog. 05/24/22 * Patient's BSGs yesterday were [phone] mg/dL and overnight were 157- 147mg/dL. Fasting today is 142 mg/dL. * Steroids discontinued. Patient to receive dialysis today. * Patient received 92 units of insulin yesterday (40 units of Lantus and 52 units of bolus). * Since steroids discontinued, will change back to once daily Lantus. Patient was hypoglycemic with 15 units of lantus therefore will reduce to 10 units nightly. * Loosen Novolog since steroids d/c'ed. PLAN FOR INPATIENT GLYCEMIC CONTROL: * Hold outpatient diabetes medications * Basal insulin * Lantus 15-18 units Q HS * Bolus insulin * NovoLog per scale ACHS * Goal Range: Low 110 mg/dL - High 140 mg/dL * Correction Factor: 20 mg/dL/unit * Nutritional / Prandial insulin per carb ratio of 1 unit per 7 grams CHO consumed
--- NOTE | 2022-05-28 10:34 | Dialysis Progress Note ---
Date of Service May 28, 2022 Assessment & Plan Admission and Anticipated Discharge Date Admission Date: May 14, 2022 Subjective Assessment & Plan (1) End-stage renal disease (ESRD): Plan: ESRD MWF at [facility] via dialysis catheter -Patient tolerating dialysis well . She is planned for 3.5 hours and to get UF of 2.5 to 4 L today with midodrine 10 mg -max dose epo w/ tx Likely will do dialysis again tomorrow for 3 hrs and then from next week it will be 3 days a week. (2) Osteomyelitis: Plan: -S/p surgical debridement > surgery evaluating daily Subjective Seen in dialysis. tolerating well. Still w/ edema but improved. Review of Systems Review of Systems: All systems reviewed & are unremarkable except as noted in Subjective Physical Exam Constitutional: well developed, well nourished, + ill appearing, + obese, + frail appearing and cooperative; no acute distress Eyes: EOM intact bilaterally ENMT: Ears: no external ear abnormality Nose: no external nose abnormality Mouth: + dry oral mucous membranes Neck: no nuchal rigidity Respiratory: normal respiratory effort (on 2L 02nc) and able to speak in complete sentences; no labored breathing, does not use accessory muscles, no cough and not tachypneic Auscultation: + diminished lung sounds Cardiovascular: Rate/Rhythm: regular rate, regular rhythm and + tachycardic Extremities: + edema (2+ BLE) Gastrointestinal (Abdomen): Inspection/Auscultation: abdomen normal to inspection (w/ colostomy present) and normal bowel sounds Percussion/Palpation: abdomen soft; abdomen nontender B Musculoskeletal: Extremities: + abnormal strength Skin: no rashes, warm and dry Psychiatric: Orientation: oriented to person, oriented to place and cooperative Affect: euthymic affect and + anxious affect Results & Data ([facility]) Vital Signs (Past 12 Hours) Vital Signs Temp Pulse Pulse Pulse Resp BP Pulse Ox 05/28/22 09:35 36.5 C 75 05/28/22 07:00 36.5 C 77 18 91/55 L 94 05/28/22 03:00 36.4 C L 75 18 95/57 L 100 05/28/22 01:10 71 05/27/22 23:46 36.4 C L 72 18 106/54 L 97 O2 Del Method 05/28/22 09:35 05/28/22 07:00 Room Air 05/28/22 03:00 Nasal Cannula 05/28/22 01:10 05/27/22 23:46
--- NOTE | 2022-05-28 14:33 | Hospitalist Progress Note ---
Date of Service May 28, 2022 Assessment & Plan (1) Sepsis: Plan: - patient with tachycardia, leukocytosis, lactic acidosis - source likely stage IV sacral ulcer with likely underlying osteomyelitis - broad spectrum abx with intravenous cefepime, daptomycin and oral fluconazole - surgical consult-recommended surgical debridement, however, patient declined before but as of 05/25/22 she seems to be willing -Stayed in ICU and now in telemetry unit - debridement planned for 05/20 in am which she declined, Santyl also stopped. -Remained medically stable and the patient is wishing to have surgical debridement as of today that is 06-14 -Appreciate ID input and recommendation -The patient is now agreeable to go for surgical debridement with or without wound VAC -If surgical debridement is done antibiotic should be continued for 4 more weeks depending on the culture results. If surgical debridement is not done will end antibiotic on 06/02/2022 and plan for aggressive wound care management -Status post debridement of sacral ulcer with bone biopsy on 05/27/2022 -Gram stain did show pinpoint growth of aerobic and anaerobic organism- reintubating -Bone biopsy pending Adjustment disorder with depressed mood Appreciate psychiatrist input and recommendation Vitamin B12, folate and TSH are normal Remains depressed but no acute delirium (2) Osteomyelitis: Plan: - 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 - received surgical debridement at [facility] with bone culture/biopsy - was on daptomycin there 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 3 times daily, plan to decrease to BID tomorrow Heparin drip held Also on usual metoprolol XL 25 mg daily Has been on amiodarone 200 mg daily and will need anticoagulation with Coumadin on discharge Heart rate remains controlled on amiodarone (4) Ulcer of sacral region, stage 4: Plan: plan as above. Debridement today as per surgery Wound care has been consulted for possible wound VAC placement (5) Radiation necrosis of skin and subcutaneous: Plan: - plan as above (6) Acute hyponatremia: Plan: - likely due to sepsis and decrease po intake -improving, cont to monitor. -nephro following in this complex ESRD patient. Sodium 130--129 Monitor-sodium level is 134 as of 05/26/2022 (7) End-stage renal disease (ESRD): Plan: - has been on HD for the past year, per patient - HD catheter in right chest - no evidence of infection at catheter site - normal schedule is MWF -this past week was undergoing daily treatments with 3-3.5L UF removed each time on pressor support in preparation for surgical debridement of wound which she ultimately declined. -Has been on hemodialysis (8) Diabetes: Plan: - on insulin at home -cont insulin protocol per ICU (9) Hypothyroid: Plan: - patient is hypothyroid on labs with TSH 22, FT4 <0.25 - unclear if patient taking medication appropriately - after dosing her with levothyroxine here she is euthyroid with TSH 2.0 (10) Anemia: Plan: - chronic anemia in the setting of ESRD and GI losses (reported but not observed) and phlebotomy - was reportedly getting ?EPO injections with HD per Patient - continue EPO per renal - no signs of active bleeding at this time -Hb drop occurred, however, wondering if this may have had something to do with hemoconcentration with so much UF being removed and then after she went into afib, we added back 1L NSS and rehydrated her prior to the "drop". -no active bleeding although +FOBT noted overnight. - will monitor for now Hemoglobin remaining stable 7.2, now 7.5 No signs of active bleeding Hemoglobin is dropped to 7.3-we will monitor and may need blood transfusion (11) Thrombocytopenia: Plan: - unclear chronicity - likely consumption in sepsis, ESRD, chronic illness - no signs of bleeding -resolved (12) Coagulopathy: Plan: - patient not on warfarin - in the setting of sepsis -DDx includes but not limited to DIC (less likely with elevated fibrinogen) vs poor nutrition. -cont to monitor 05/20: INR 2.0 INR is 1.4 as of 05/26/2022 Plan DVT ppx: Heparin drip on hold Code Status: changed to DNR after update by palliative doctor. She is not quite ready for hospice at this point and wants to keep going [facility] hemodialysis for now. Admission and Anticipated Discharge Date Admission Date: May 14, 2022 Subjective 05/25/2022 The patient was seen and examined in telemetry unit She complains to have bilateral leg pain but denies any chest pain, palpitation or shortness of breath Denies any abdominal pain, nausea and or vomiting Clinically looks depressed 05/26/2022 The patient was seen and examined in telemetry unit She has been feeling much better today though her blood pressure is low following getting Dilaudid IV Denies any significant symptoms She will be going for sacral wound debridement tomorrow 05/27/2022 The patient was seen and examined in telemetry unit She remains stable and awaiting surgical debridement of the sacral wound Denies any significant symptoms 05/28/2022 The patient was seen and examined in telemetry unit She complains today of left leg pain but otherwise denies any significant symptoms No fever and no chills, no nausea no vomiting Her blood pressure running low at 89/36 Review of Systems Review of Systems: All systems reviewed and are unremarkable except as noted below Physical Exam Physical Exam: Lying in bed comfortably but looks depressed Constitutional: well developed, well nourished, + ill appearing and + obese Eyes: PERRL, conjunctivae normal, anicteric sclerae ENMT: external ear and nose normal, oropharynx normal Neck: trachea midline, no thyromegaly Respiratory: no respiratory distress Auscultation: + diminished lung sounds and + crackles (Minimal crackles at the bases) Cardiovascular: Rate/Rhythm: regular rate and regular rhythm; not tachycardic Heart Sounds: normal S1 and normal S2; no murmur Extremities: + edema (1+ edema bilaterally) Gastrointestinal (Abdomen): Inspection/Auscultation: normal bowel sounds; + abdomen abnormal to inspection (Has colostomy bag in site to) and abdomen not distended Percussion/Palpation: abdomen soft; abdomen nontender Musculoskeletal: Has pain in the lower extremities and mainly left knee without any acute arthritis Neurologic: normal touch/pain/proprioception and moves all extremities Lymphatic: no cervical or axillary lymphadenopathy Results & Data Results & Data ([facility]) Vital Signs (Past 12 Hours) Vital Signs Temp Pulse Pulse Pulse Resp BP BP 05/28/22 12:12 66 05/28/22 11:30 73 89/36 L 05/28/22 11:00 74 83/47 L 05/28/22 10:30 76 85/32 L 05/28/22 10:00 76 96/43 L 05/28/22 09:48 71 83/35 L 05/28/22 09:35 36.5 C 75 05/28/22 07:00 36.5 C 77 18 91/55 L 05/28/22 03:00 36.4 C L 75 18 95/57 L Pulse Ox O2 Del Method 05/28/22 12:12 05/28/22 11:30 05/28/22 11:00 05/28/22 10:30 05/28/22 10:00 05/28/22 09:48 05/28/22 09:35 05/28/22 07:00 94 Room Air 05/28/22 03:00 100 Nasal Cannula Laboratory Results Short CBC 05/28/22 Range/Units 06:20 WBC 5.72 (4.8-10.8) K/ul Hgb 7.4 L (12.0-16.0) g/dl Hct 24.5 L (34.1-44.9) % Plt Count 155 (130-400) K/uL BMP 05/28/22 06:20 Sodium 134 L Potassium 4.0 Chloride 101 Carbon Dioxide 25 BUN 22 Creatinine 2.60 H D Glucose 176 H Calcium 8.2 L Liver Function 05/28/22 Range/Units 06:20 Albumin 2.4 L (3.4-5.0) gm/dl Medications Administered Current Inpatient Medications Acetaminophen (Acetaminophen 1000 Mg/100 Ml Iv) 1,000 mg IV Q8H PRN PRN Reason: Pain Stop: 05/30/22 17:45 Last Admin: 05/27/22 18:10 Dose: 1,000 mg Amiodarone HCl (Amiodarone 200 Mg Tab) 200 mg PO DAILY ROSA M Stop: 06/26/22 08:59 Last Admin: 05/28/22 07:54 Dose: 200 mg Atorvastatin Calcium (Atorvastatin 40 Mg Tab) 40 mg PO QAM ROSA M Stop: 06/14/22 08:59 Last Admin: 05/20/22 08:01 Dose: 40 mg Collagenase (Collagenase Oint 30 Gm Tube) 1 appln EXT DAILY ROSA M Stop: 06/14/22 08:59 Last Admin: 05/19/22 07:35 Dose: Not Given Dextrose (Dextrose 50% 50 Ml Syringe) 25 - 50 ml IV UD PRN; Protocol PRN Reason: Hypoglycemia Protocol Stop: 06/13/22 18:24 Last Admin: 05/16/22 11:55 Dose: 50 ml Epoetin Felipe (Epoetin Felipe 20,000 Units/Ml Vial) 20,000 units IV ONE ONE Stop: 05/29/22 07:01 Fluconazole (Fluconazole 100 Mg Tab) 200 mg PO QAM ROSA M Stop: 07/03/22 08:59 Last Admin: 05/28/22 08:09 Dose: 200 mg Gabapentin (Gabapentin 100 Mg Cap) 100 mg PO QAM ROSA M Stop: 06/14/22 08:59 Last Admin: 05/28/22 07:56 Dose: 100 mg Gabapentin (Gabapentin 100 Mg Cap) 200 mg PO HS ROSA M Stop: 06/18/22 20:59 Last Admin: 05/20/22 20:56 Dose: 200 mg Glucagon (Glucagon For Inj 1 Mg Vial) 1 mg SQ UD PRN; Protocol PRN Reason: Hypoglycemia Protocol Stop: 06/13/22 18:24 Glucose (Glucose 40% Gel 15 Gm Tube) 15 - 30 gm PO UD PRN; Protocol PRN Reason: Hypoglycemia Protocol Stop: 06/13/22 18:24 Glucose (Glucose 10 Tab/Tube) 4 - 8 tab PO UD PRN; Protocol PRN Reason: Hypoglycemia Treatment Stop: 06/13/22 18:24 Heparin Sodium (Porcine) (Heparin Sod (Porcine) 1000 Unit/Ml) 1,000 units IV ONE ONE Stop: 05/29/22 07:01 Daptomycin 550 mg/ Syringe 11 mls @ 5.5 mls/min IV MoWe@1400 ROSA M; Protocol Stop: 07/05/22 13:59 Last Admin: 05/26/22 13:49 Dose: 5.5 mls/min Daptomycin 800 mg/ Syringe 16 mls @ 8 mls/min IV Fr@1400 ROSA M; Protocol Stop: 07/02/22 13:59 Last Admin: 05/21/22 13:54 Dose: 8 mls/min Heparin Sodium/Dextrose (Heparin Sodium/Dextrose) 25,000 units in 500 mls @ 23 mls/hr IV .[id number] ROSA M; Protocol Stop: 06/20/22 19:14 Last Titration: 05/23/22 13:20 Dose: Infused Cefepime HCl 1,000 mg/ Syringe 11.3 mls @ 5.5 mls/min IV Q24H [facility]; Protocol Stop: 07/03/22 17:59 Last Admin: 05/27/22 18:33 Dose: 5.5 mls/min Sodium Chloride (Nss 1000ml) 1,000 mls @ 0 mls/hr IV .Q0M PRN PRN Reason: For Hemodialysis Use ONLY Stop: 05/29/22 12:59 Daptomycin 550 mg/ Syringe 11 mls @ 5.5 mls/min IV TODAY@1600 ONE; Protocol Stop: 05/28/22 16:01 Insulin Aspart (Insulin Aspart Per Unit) 0 units SC ACHS [facility]; Protocol Stop: 06/20/22 11:29 Last Admin: 05/28/22 13:49 Dose: 3 units Insulin Glargine (Lantus Per Unit Charge) 0 units SQ HS [facility]; Protocol Stop: 06/26/22 20:59 Last Admin: 05/27/22 21:07 Dose: 15 units Lactobacillus Acidophilus (Advanced Probiotic 1250 Mg Capsule) 2 cap PO DAILY [facility] Stop: 06/23/22 16:44 Last Admin: 05/28/22 08:09 Dose: 2 cap Latanoprost (Latanoprost 0.005% Op Soln 2.5 Ml Btl) 1 drops OP QPM [facility] Stop: 06/13/22 20:59 Last Admin: 05/27/22 21:53 Dose: 1 drops Levothyroxine Sodium (Levothyroxine Sodium 150 Mcg Tablet) 150 mcg PO DAILYBB [facility] Stop: 06/21/22 06:29 Last Admin: 05/28/22 05:55 Dose: 150 mcg Metoprolol Succinate (Metoprolol Succ 25mg Ext Rel Tab) 25 mg PO QAM [facility] Stop: 06/14/22 08:59 Last Admin: 05/28/22 07:53 Dose: Not Given Midodrine (Midodrine Hcl 10 Mg Tab) 10 mg PO TID@0800,1200,1700 [facility] Stop: 06/21/22 03:19 Last Admin: 05/28/22 13:09 Dose: 10 mg Miscellaneous (Carbohydrates For Hypoglycemia ) 15 - 30 gm PO UD PRN PRN Reason: Hypoglycemia Protocol Stop: 06/13/22 18:24 Miscellaneous Information (Pharmacy Glycemic Mgmt Consult) 1 each N/A UD PRN PRN Reason: Consult Stop: 06/22/22 17:05 Nitroglycerin (Nitroglycerin Sl 0.4 Mg/Tab Tab) 0.4 mg SL PRN PRN PRN Reason: Chest Pain Stop: 06/17/22 18:44 Ondansetron HCl (Ondansetron Inj 2 Mg/Ml 2 Ml Vial) 4 mg IV Q6H PRN PRN Reason: Nausea Stop: 06/13/22 18:19 Last Admin: 05/26/22 12:49 Dose: 4 mg Oxycodone HCl (Oxycodone Hcl Ir 5 Mg Tab (Immediate Release)) 2.5 mg PO DAILY PRN PRN Reason: Pain Stop: 05/31/22 03:56 Last Admin: 05/27/22 00:34 Dose: 2.5 mg Oxycodone/Acetaminophen (Oxycodone/Acetaminophen 5mg/325mg Tab) 1 tab PO Q6RWA PRN PRN Reason: Pain Stop: 06/11/22 07:16 Last Admin: 05/28/22 13:50 Dose: 1 tab Pantoprazole Sodium (Pantoprazole 40 Mg Tab) 40 mg PO DAILY ROSA M Stop: 06/14/22 08:59 Last Admin: 05/28/22 08:08 Dose: 40 mg Ropinirole HCl (Ropinirole Hcl 0.25 Mg Tablet) 0.25 mg PO HS ROSA M Stop: 06/17/22 20:59 Last Admin: 05/27/22 21:09 Dose: 0.25 mg (1) Osteomyelitis Osteomyelitis location: unspecified site Osteomyelitis type: unspecified type Qualified Code(s): M86.9 - Osteomyelitis, unspecified
[2022-05-28] MEDS ORDERED: DAPTOmycin 550 MG in SYRINGE 0 ML IV ONE (16:00)
[2022-05-28] MEDS: CEFEPIME 1,000 MG in SYRINGE 0 ML IV SCH (18:03)
[2022-05-28] MEDS: LANTUS PER UNIT CHARGE SQ SCH (21:38)
[2022-05-28] MEDS: LATANOPROST 0.005% OP SOLN 2.5 ML BTL OP SCH (21:38)
[2022-05-28] MEDS: rOPINIRole HCL 0.25 MG TABLET PO SCH (22:05)
[2022-05-28] MEDS ORDERED: SODIUM CHLORIDE 0.9% 500 ML IV SCH (23:30)
[2022-05-29] MEDS: LEVOTHYROXINE SODIUM 150 MCG TABLET PO SCH (05:48)
[2022-05-29] MEDS ORDERED: SODIUM CHLORIDE 0.9% 1000ML 1,000 ML IV PRN (07:00)
[2022-05-29] MEDS ORDERED: HEPARIN SOD (PORCINE) 1000 UNIT/ML IV ONE (07:00)
[2022-05-29] MEDS ORDERED: EPOETIN ALFA 20,000 UNITS/ML VIAL IV ONE (07:00)
[2022-05-29] MEDS: METOPROLOL SUCC 25MG EXT REL TAB PO SCH (09:00)
[2022-05-29] MEDS: MIDODRINE HCL 10 MG TAB PO SCH ×3 (09:02→16:19)
[2022-05-29] MEDS: AMIODARONE 200 MG TAB PO SCH (09:03)
[2022-05-29] MEDS: GABAPENTIN 100 MG CAP PO SCH (09:03)
[2022-05-29] MEDS: FLUCONAZOLE 100 MG TAB PO SCH (09:06)
[2022-05-29] MEDS: ADVANCED PROBIOTIC 1250 MG CAPSULE PO SCH (09:06)
[2022-05-29] MEDS: PANTOprazole 40 MG TAB PO SCH (09:06)
[2022-05-29] MEDS: BRIMONIDINE TARTRATE 0.2% 5ML OP SCH ×2 (09:07→20:39)
[2022-05-29] MEDS: INSULIN ASPART PER UNIT SC SCH ×5 (09:13→23:31)
--- NOTE | 2022-05-29 10:16 | Dialysis Progress Note ---
Date of Service May 29, 2022 Assessment & Plan (1) End-stage renal disease (ESRD): Plan: ESRD MWF at [facility] via dialysis catheter She was dialyzed yesterday but still has significant volume overload. -Patient tolerating dialysis well . (2) Osteomyelitis: Plan: -S/p surgical debridement - Continue Daptomycin Admission and Anticipated Discharge Date Admission Date: May 14, 2022 Subjective Patient was seen and examined while on dialysis. No shortness of breath. Main complaint is leg swelling. Review of Systems Review of Systems: All other systems were reviewed and negative except as noted in HPI Physical Exam Physical Exam: General exam: Appears comfortable, no acute distress HEENT: Pupils are equal and reactive to light Neck: No JVD, neck is supple trachea is midline Respiratory system: Clear breath sounds bilaterally. Gastrointestinal: Abdomen is soft, non distended, non tender, bowel sounds are present CVS: Regular rate and rhythm. No murmurs, rubs or gallops Musculoskeletal: No joint or muscle tenderness Extremities: Non tender, 1+ edema, peripheral pulses are present Neuro: Oriented, no tremors, no focal neurological deficits Skin: No rashes Results & Data ([facility]) Vital Signs (Past 12 Hours) Vital Signs Temp Pulse Pulse Pulse Resp BP BP 05/29/22 10:00 80 92/35 L 05/29/22 09:53 81 95/38 L 05/29/22 09:42 36.7 C 85 05/29/22 07:01 37.1 C 80 16 05/29/22 03:03 36.9 C 80 16 109/67 05/29/22 00:14 71 16 91/61 L 05/29/22 00:00 73 05/28/22 23:32 75 16 05/28/22 22:53 36.6 C 77 20 BP Pulse Ox O2 Del Method O2 Flow Rate 05/29/22 10:00 05/29/22 09:53 05/29/22 09:42 05/29/22 07:01 87/45 L 94 Nasal Cannula 05/29/22 03:03 95 05/29/22 00:14 97 Nasal Cannula 1 05/29/22 00:00 05/28/22 23:32 88/58 L 98 Nasal Cannula 2 05/28/22 22:53 72/48 L 92 Room Air Laboratory Results 05/28/22 06:20 (1) Osteomyelitis Osteomyelitis location: unspecified site Osteomyelitis type: unspecified type Qualified Code(s): M86.9 - Osteomyelitis, unspecified
--- NOTE | 2022-05-29 14:13 | Hospitalist Progress Note ---
Date of Service May 29, 2022 Assessment & Plan (1) Sepsis: Plan: - patient with tachycardia, leukocytosis, lactic acidosis - source likely stage IV sacral ulcer with likely underlying osteomyelitis - broad spectrum abx with intravenous cefepime, daptomycin and oral fluconazole - surgical consult-recommended surgical debridement, however, patient declined before but as of 05/25/22 she seems to be willing -Stayed in ICU and now in telemetry unit - debridement planned for 05/20 in am which she declined, Santyl also stopped. -Remained medically stable and the patient is wishing to have surgical debridement as of today that is 06-14 -Appreciate ID input and recommendation -The patient is now agreeable to go for surgical debridement with or without wound VAC -If surgical debridement is done antibiotic should be continued for 4 more weeks depending on the culture results. If surgical debridement is not done will end antibiotic on 06/02/2022 and plan for aggressive wound care management -Status post debridement of sacral ulcer with bone biopsy on 05/27/2022-please look at picture of the wound from the wound care note -Gram stain did show gram-positive cocci in chainsfurther identification and sensitivity are pending -Bone biopsy pending-not showing any specimen in pathology section as of today -Remains otherwise stable Adjustment disorder with depressed mood Appreciate psychiatrist input and recommendation Vitamin B12, folate and TSH are normal Remains depressed but no acute delirium (2) Osteomyelitis: Plan: - 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 - received surgical debridement at [facility] with bone culture/biopsy - was on daptomycin there 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 3 times daily, plan to decrease to BID tomorrow Heparin drip held Also on usual metoprolol XL 25 mg daily Has been on amiodarone 200 mg daily and will need anticoagulation with Coumadin on discharge Heart rate remains controlled on amiodarone (4) Ulcer of sacral region, stage 4: Plan: plan as above. Debridement today as per surgery Wound care has been consulted for possible wound VAC placement Please look at picture of the sacral wound this looks very scary looking (5) Radiation necrosis of skin and subcutaneous: Plan: - plan as above (6) Acute hyponatremia: Plan: - likely due to sepsis and decrease po intake -improving, cont to monitor. -nephro following in this complex ESRD patient. Sodium 130--129 Monitor-sodium level is 134 as of 05/26/2022 (7) End-stage renal disease (ESRD): Plan: - has been on HD for the past year, per patient - HD catheter in right chest - no evidence of infection at catheter site - normal schedule is MWF -this past week was undergoing daily treatments with 3-3.5L UF removed each time on pressor support in preparation for surgical debridement of wound which she ultimately declined. -Has been on hemodialysis (8) Diabetes: Plan: - on insulin at home -cont insulin protocol per ICU (9) Hypothyroid: Plan: - patient is hypothyroid on labs with TSH 22, FT4 <0.25 - unclear if patient taking medication appropriately - after dosing her with levothyroxine here she is euthyroid with TSH 2.0 (10) Anemia: Plan: - chronic anemia in the setting of ESRD and GI losses (reported but not observed) and phlebotomy - was reportedly getting ?EPO injections with HD per Patient - continue EPO per renal - no signs of active bleeding at this time -Hb drop occurred, however, wondering if this may have had something to do with hemoconcentration with so much UF being removed and then after she went into afib, we added back 1L NSS and rehydrated her prior to the "drop". -no active bleeding although +FOBT noted overnight. - will monitor for now Hemoglobin remaining stable 7.2, now 7.5 No signs of active bleeding Hemoglobin is dropped to 7.3-we will monitor and may need blood transfusion (11) Thrombocytopenia: Plan: - unclear chronicity - likely consumption in sepsis, ESRD, chronic illness - no signs of bleeding -resolved (12) Coagulopathy: Plan: - patient not on warfarin - in the setting of sepsis -DDx includes but not limited to DIC (less likely with elevated fibrinogen) vs poor nutrition. -cont to monitor 05/20: INR 2.0 INR is 1.4 as of 05/26/2022 Plan DVT ppx: Heparin drip on hold Code Status: changed to DNR after update by palliative doctor. She is not quite ready for hospice at this point and wants to keep going [facility] hemodialysis for now. Admission and Anticipated Discharge Date Admission Date: May 14, 2022 Subjective 05/25/2022 The patient was seen and examined in telemetry unit She complains to have bilateral leg pain but denies any chest pain, palpitation or shortness of breath Denies any abdominal pain, nausea and or vomiting Clinically looks depressed 05/26/2022 The patient was seen and examined in telemetry unit She has been feeling much better today though her blood pressure is low following getting Dilaudid IV Denies any significant symptoms She will be going for sacral wound debridement tomorrow 05/27/2022 The patient was seen and examined in telemetry unit She remains stable and awaiting surgical debridement of the sacral wound Denies any significant symptoms 05/28/2022 The patient was seen and examined in telemetry unit She complains today of left leg pain but otherwise denies any significant symptoms No fever and no chills, no nausea no vomiting Her blood pressure running low at 89/36 05/29/2022 The patient was seen and examined in telemetry unit She has been stable without any significant symptoms but her blood pressure has been running low at systolic 80s Apparently she was found to have carrying Lasix and phenylephrine in her bed and not sure whether she has been taking dose or not The medicines were taken away from her She received 500 of normal saline bolus last night to maintain blood pressure and she has had dialysis this morning Review of Systems Review of Systems: All systems reviewed and are unremarkable except as noted below Physical Exam Physical Exam: Lying in bed comfortably but looks depressed Constitutional: well developed, well nourished, + ill appearing and + obese Eyes: PERRL, conjunctivae normal, anicteric sclerae ENMT: external ear and nose normal, oropharynx normal Neck: trachea midline, no thyromegaly Respiratory: no respiratory distress Auscultation: + diminished lung sounds and + crackles (Minimal crackles at the bases) Cardiovascular: Rate/Rhythm: regular rate and regular rhythm; not tachycardic Heart Sounds: normal S1 and normal S2; no murmur Extremities: + edema (1+ edema bilaterally) Gastrointestinal (Abdomen): Inspection/Auscultation: normal bowel sounds; + abdomen abnormal to inspection (Has colostomy bag in site to) and abdomen not distended Percussion/Palpation: abdomen soft; abdomen nontender Musculoskeletal: No acute arthritis involving any joint Neurologic: normal touch/pain/proprioception and moves all extremities Lymphatic: no cervical or axillary lymphadenopathy Results & Data Results & Data ([facility]) Vital Signs (Past 12 Hours) Vital Signs Temp Pulse Pulse Pulse Resp BP BP 05/29/22 12:45 67 79/36 L 05/29/22 12:30 72 74/43 L 05/29/22 12:15 72 73/41 L 05/29/22 12:00 76 76/29 L 05/29/22 11:45 70 72/26 L 05/29/22 11:30 69 81/34 L 05/29/22 11:15 73 67/39 L 05/29/22 11:00 75 80/43 L 05/29/22 10:45 75 75/24 L 05/29/22 10:30 81 71/27 L 05/29/22 07:00 80 05/29/22 10:00 80 92/35 L 05/29/22 09:53 81 95/38 L 05/29/22 09:42 36.7 C 85 05/29/22 07:01 37.1 C 80 16 05/29/22 03:03 36.9 C 80 16 109/67 BP Pulse Ox O2 Del Method 05/29/22 12:45 05/29/22 12:30 05/29/22 12:15 05/29/22 12:00 05/29/22 11:45 05/29/22 11:30 05/29/22 11:15 05/29/22 11:00 05/29/22 10:45 05/29/22 10:30 05/29/22 07:00 05/29/22 10:00 05/29/22 09:53 05/29/22 09:42 05/29/22 07:01 87/45 L 94 Nasal Cannula 05/29/22 03:03 95 Medications Administered Current Inpatient Medications Acetaminophen (Acetaminophen 1000 Mg/100 Ml Iv) 1,000 mg IV Q8H PRN PRN Reason: Pain Stop: 05/30/22 17:45 Last Admin: 05/27/22 18:10 Dose: 1,000 mg Amiodarone HCl (Amiodarone 200 Mg Tab) 200 mg PO DAILY [facility] Stop: 06/26/22 08:59 Last Admin: 05/29/22 09:03 Dose: 200 mg Atorvastatin Calcium (Atorvastatin 40 Mg Tab) 40 mg PO QAM [facility] Stop: 06/14/22 08:59 Last Admin: 05/20/22 08:01 Dose: 40 mg Brimonidine Tartrate (Brimonidine Tartrate 0.2% 5ml) 1 drops OP BID [facility] Stop: 06/28/22 08:59 Last Admin: 05/29/22 09:07 Dose: 1 drops Collagenase (Collagenase Oint 30 Gm Tube) 1 appln EXT DAILY [facility] Stop: 06/14/22 08:59 Last Admin: 05/19/22 07:35 Dose: Not Given Dextrose (Dextrose 50% 50 Ml Syringe) 25 - 50 ml IV UD PRN; Protocol PRN Reason: Hypoglycemia Protocol Stop: 06/13/22 18:24 Last Admin: 05/16/22 11:55 Dose: 50 ml Fluconazole ([facility] 100 Mg Tab) [facility] Stop: 07/03/22 08:59 Last Admin: 05/29/22 09:06 Dose: 200 mg Gabapentin (Gabapentin 100 Mg Cap) [facility] Stop: 06/14/22 08:59 Last Admin: 05/29/22 09:03 Dose: 100 mg Gabapentin (Gabapentin 100 Mg Cap) 200 mg PO [facility] Stop: 06/18/22 20:59 Last Admin: 05/20/22 20:56 Dose: 200 mg Glucagon (Glucagon For Inj 1 Mg Vial) 1 mg SQ UD PRN; Protocol PRN Reason: Hypoglycemia Protocol Stop: 06/13/22 18:24 Glucose (Glucose 40% Gel 15 Gm Tube) 15 - 30 gm PO UD PRN; Protocol PRN Reason: Hypoglycemia Protocol Stop: 06/13/22 18:24 Glucose (Glucose 10 Tab/Tube) 4 - 8 tab PO UD PRN; Protocol PRN Reason: Hypoglycemia Treatment Stop: 06/13/22 18:24 Daptomycin 550 mg/ Syringe 11 mls @ 5.5 mls/min IV MoWe@1400 ROSA M; Protocol Stop: 07/05/22 13:59 Last Admin: 05/26/22 13:49 Dose: 5.5 mls/min Daptomycin 800 mg/ Syringe 16 mls @ 8 mls/min IV Fr@1400 ROSA M; Protocol Stop: 07/02/22 13:59 Last Admin: 05/21/22 13:54 Dose: 8 mls/min Heparin Sodium/Dextrose (Heparin Sodium/Dextrose) 25,000 units in 500 mls @ 23 mls/hr IV .[id number] [facility]; Protocol Stop: 06/20/22 19:14 Last Titration: 05/23/22 13:20 Dose: Infused Cefepime HCl 1,000 mg/ Syringe 11.3 mls @ 5.5 mls/min IV Q24H [facility]; Protocol Stop: 07/03/22 17:59 Last Admin: 05/28/22 18:03 Dose: 5.5 mls/min Daptomycin 250 mg/ Syringe 5 mls @ 2.5 mls/min IV TODAY@1600 ONE; Protocol Stop: 05/29/22 16:01 Insulin Aspart (Insulin Aspart Per Unit) 0 units SC ACHS [facility]; Protocol Stop: 06/20/22 11:29 Last Admin: 05/29/22 13:59 Dose: Not Given Insulin Glargine (Lantus Per Unit Charge) 20 units SQ HS [facility]; Protocol Stop: 06/28/22 20:59 Lactobacillus Acidophilus (Advanced Probiotic 1250 Mg Capsule) 2 cap PO DAILY [facility] Stop: 06/23/22 16:44 Last Admin: 05/29/22 09:06 Dose: 2 cap Latanoprost (Latanoprost 0.005% Op Soln 2.5 Ml Btl) 1 drops OP QPM [facility] Stop: 06/13/22 20:59 Last Admin: 05/28/22 21:38 Dose: 1 drops Levothyroxine Sodium (Levothyroxine Sodium 150 Mcg Tablet) 150 mcg PO DAILYBB [facility] Stop: 06/21/22 06:29 Last Admin: 05/29/22 05:48 Dose: 150 mcg Metoprolol Succinate (Metoprolol Succ 25mg Ext Rel Tab) 25 mg PO QAM [facility] Stop: 06/14/22 08:59 Last Admin: 05/29/22 09:00 Dose: Not Given Midodrine (Midodrine Hcl 10 Mg Tab) 10 mg PO TID@0800,1200,1700 [facility] Stop: 06/21/22 03:19 Last Admin: 05/29/22 11:30 Dose: 10 mg Miscellaneous (Carbohydrates For Hypoglycemia ) 15 - 30 gm PO UD PRN PRN Reason: Hypoglycemia Protocol Stop: 06/13/22 18:24 Miscellaneous Information (Pharmacy Glycemic Mgmt Consult) 1 each N/A UD PRN PRN Reason: Consult Stop: 06/22/22 17:05 Nitroglycerin (Nitroglycerin Sl 0.4 Mg/Tab Tab) 0.4 mg SL PRN PRN PRN Reason: Chest Pain Stop: 06/17/22 18:44 Ondansetron HCl (Ondansetron Inj 2 Mg/Ml 2 Ml Vial) 4 mg IV Q6H PRN PRN Reason: Nausea Stop: 06/13/22 18:19 Last Admin: 05/26/22 12:49 Dose: 4 mg Oxycodone HCl (Oxycodone Hcl Ir 5 Mg Tab (Immediate Release)) 2.5 mg PO DAILY PRN PRN Reason: Pain Stop: 05/31/22 03:56 Last Admin: 05/27/22 00:34 Dose: 2.5 mg Oxycodone/Acetaminophen (Oxycodone/Acetaminophen 5mg/325mg Tab) 1 tab PO Q6RWA PRN PRN Reason: Pain Stop: 06/11/22 07:16 Last Admin: 05/28/22 21:49 Dose: 1 tab Pantoprazole Sodium (Pantoprazole 40 Mg Tab) 40 mg PO DAILY ROSA M Stop: 06/14/22 08:59 Last Admin: 05/29/22 09:06 Dose: 40 mg Ropinirole HCl (Ropinirole Hcl 0.25 Mg Tablet) 0.25 mg PO HS [facility] M Stop: 06/17/22 20:59 Last Admin: 05/28/22 22:05 Dose: 0.25 mg (1) Osteomyelitis Osteomyelitis location: unspecified site Osteomyelitis type: unspecified type Qualified Code(s): M86.9 - Osteomyelitis, unspecified
[2022-05-29] MEDS ORDERED: DAPTOmycin 250 MG in SYRINGE 0 ML IV ONE (16:00)
[2022-05-29] MEDS: POLYETHYLENE (MIRALAX) 17 GM PACK PO PRN (16:15)
[2022-05-29] MEDS: CEFEPIME 1,000 MG in SYRINGE 0 ML IV SCH (18:06)
[2022-05-29] MEDS: rOPINIRole HCL 0.25 MG TABLET PO SCH (20:40)
[2022-05-29] MEDS: LATANOPROST 0.005% OP SOLN 2.5 ML BTL OP SCH (20:40)
[2022-05-29] MEDS: oxyCODONE/ACETAMINOPHEN 5mg/325mg TAB PO PRN (20:43)
[2022-05-29] MEDS ORDERED: LANTUS PER UNIT CHARGE SQ SCH (21:00)
[2022-05-30] MEDS: INSULIN ASPART PER UNIT SC SCH ×5 (04:12→21:36)
[2022-05-30] MEDS: LEVOTHYROXINE SODIUM 150 MCG TABLET PO SCH (05:20)
[2022-05-30] MEDS: MIDODRINE HCL 10 MG TAB PO SCH ×3 (08:04→17:34)
[2022-05-30] MEDS: BRIMONIDINE TARTRATE 0.2% 5ML OP SCH ×2 (08:26→21:36)
[2022-05-30] MEDS: METOPROLOL SUCC 25MG EXT REL TAB PO SCH (08:28)
[2022-05-30] MEDS: FLUCONAZOLE 100 MG TAB PO SCH (08:29)
[2022-05-30] MEDS: PANTOprazole 40 MG TAB PO SCH (08:29)
[2022-05-30] MEDS: ADVANCED PROBIOTIC 1250 MG CAPSULE PO SCH (08:29)
[2022-05-30] MEDS: AMIODARONE 200 MG TAB PO SCH (08:29)
[2022-05-30] MEDS: oxyCODONE/ACETAMINOPHEN 5mg/325mg TAB PO PRN (08:30)
[2022-05-30] MEDS: GABAPENTIN 100 MG CAP PO SCH (08:31)
[2022-05-30 08:32] LABS: Basophils # (auto) 0.07 K/uL (0-0.2); Basophils % (auto) 0.9 %; Eosinophils # (auto) 0.19 K/uL (0-0.50); Eosinophils % (auto) 2.4 %; Hematocrit (blood only) 28.4 % (34.1-44.9); Hemoglobin 8.3 g/dl (12.0-16.0); Immature Granulocytes # (auto) 0.04 K/uL (0.00-0.02); Immature Granulocytes % (auto) 0.5 %; Lymphocytes # (auto) 0.77 K/uL (1.2-3.4); Lymphocytes % (auto) 9.7 %; Mean Corpuscular Hemoglobin 30.2 pg (25.0-34.0); Mean Corpuscular Hgb Conc 29.2 g/dL (32.0-36.0); Mean Corpuscular Volume 103.3 fL (80.0-100.0); Mean Platelet Volume 11.6 fL (9.4-12.3); Monocytes # (auto) 0.84 K/uL (0.24-0.82); Monocytes % (auto) 10.6 %; Neutrophils # (auto) 5.99 K/uL (1.4-6.5); Neutrophils % (auto) 75.9 %; Nucleated RBC # (auto) 0.03 K/uL (0-0); Nucleated RBC % (auto) 0.4 %; Platelet Count 127 K/uL (130-400); RDW Coefficient of Variation 23.4 % (11.5-14.5); RDW Standard Deviation 86.5 fL (36.4-46.3); Red Blood Count 2.75 M/uL (3.93-5.22)
[2022-05-30 08:52] LABS: BUN Creatinine Ratio 9.5 (10-20); Calcium 8.5 mg/dl (8.5-10.1); Creatinine Clr Calc Pharmacy 20.8 ml/min; Est GFR (Non-African American) 17.3 ml/min; Magnesium 1.7 mg/dl (1.7-2.4); Potassium 3.6 mmol/L (3.5-5.1)
[2022-05-30 08:53] LABS: Anisocytosis Present; Macrocytosis Present; Target Cells 1+
--- NOTE | 2022-05-30 10:05 | Nephrology Progress Note ---
Date of Service May 30, 2022 Assessment & Plan (1) End-stage renal disease (ESRD): Plan: ESRD MWF at [facility] via dialysis catheter She was dialyzed yesterday but still has significant volume overload. -Next dialysis will be tomorrow. (2) Osteomyelitis: Plan: -S/p surgical debridement - Continue Daptomycin Admission and Anticipated Discharge Date Admission Date: May 14, 2022 Subjective Seen for ESRD. No shortness of breath. She had dialysis yesterday. Review of Systems Review of Systems: All other systems were reviewed and negative except as noted in HPI Physical Exam Physical Exam: General exam: Appears comfortable, no acute distress HEENT: Pupils are equal and reactive to light Neck: No JVD, neck is supple trachea is midline Respiratory system: Clear breath sounds bilaterally. Gastrointestinal: Abdomen is soft, non distended, non tender, bowel sounds are p resent CVS: Regular rate and rhythm. No murmurs, rubs or gallops Musculoskeletal: No joint or muscle tenderness Extremities: Non tender, 1+ edema, peripheral pulses are present Neuro: Oriented, no tremors, no focal neurological deficits Skin: No rashes Results & Data ([facility]) Vital Signs (Past 12 Hours) Vital Signs Temp Pulse Pulse Pulse Resp BP BP 05/30/22 07:30 88 05/30/22 07:18 36.6 C 85 18 89/52 L 05/30/22 06:14 05/30/22 03:00 36.5 C 81 18 94/60 L 05/29/22 23:00 79 05/29/22 23:00 36.7 C 81 18 77/45 L Pulse Ox O2 Del Method 05/30/22 07:30 05/30/22 07:18 94 Room Air 05/30/22 06:14 94 Room Air 05/30/22 03:00 98 05/29/22 23:00 05/29/22 23:00 97 Laboratory Results 05/30/22 07:53 05/30/22 07:53 WBC 7.90 RBC 2.75 L MCV 103.3 H MCH 30.2 MCHC 29.2 L RDW Std Deviation 86.5 H RDW Coeff of Josh 23.4 H Plt Count 127 L MPV 11.6 (1) Osteomyelitis Osteomyelitis location: unspecified site Osteomyelitis type: unspecified type Qualified Code(s): M86.9 - Osteomyelitis, unspecified
--- NOTE | 2022-05-30 13:40 | Pharmacy Report ---
Pharmacy Glycemic Short Note 2 - Date of Service May 30, 2022 - Glycemic Short BSG Results (Last 24 hours): 05/29/22 05/29/22 05/29/22 16:25 20:08 20:10 Glucose POC Glucose 220 H 375 H* 356 H* 05/29/22 05/30/22 05/30/22 23:14 04:09 07:20 Glucose POC Glucose 288 H 94 81 05/30/22 05/30/22 07:53 11:30 Glucose 88 POC Glucose 92 OUTPATIENT ANTIDIABETIC REGIMEN: * Basaglar 42 units HS - reports following [facility] clinic * Patient is also to be taking Trulicity and Novolog but does not. Has been discharged from the [facility] clinic due to failure to respond. * HbA1c = 5.9% (05/15/22) * However, this result is likely somewhat unreliable in ESRD patients d/t interactions between the A1c analyzing technique and high levels of urea in ESRD, reduced RBC life span, iron deficiency anemia, and EPO administration. HbA1c > 7.5% in ESRD patient may overestimate the extent of hyperglycemia in ESRD patients. ASSESSMENT: 05/30: * Leny received a total of 54 units of insulin yesterday (20 units basal + 34 units bolus). BSGs were elevated: [phone] mg/dL. * According to RN, patient did supply the patient with some fast food from outside the hospital last evening. These uncovered carbs likely led to hyperglycemia at bedtime. * Fasting BSG was significantly lower than any of the previous days at 81 mg/dL. Unsure if this was due to basal increase yesterday or large Novolog doses stacking at bedtime and midnight. * Regardless, will decrease basal by 20% today. * No change to Novolog. 05/28: * Patient received total of 23 units of insulin yesterday, of which 15 units were basal * Fasting BSG 176 mg/dL - plan to titrate up basal by ~20% for this evening * Continue same CF/CR for now 05/26: * Blood sugars [phone]/dl so far today, tighten CF and CR * Continue basal at this time since it was just increased by 50% yesterday * Consider increasing basal tomorrow if fasting remains elevated PLAN FOR INPATIENT GLYCEMIC CONTROL: * Basal insulin * Lantus 16 units SC HS * Bolus insulin * NovoLog per scale ACHS * Goal Range: Low 110 mg/dL - High 140 mg/dL * Correction Factor: 20 mg/dL/unit * Nutritional / Prandial insulin per carb ratio of 1 unit per 7 grams CHO consumed
--- NOTE | 2022-05-30 15:24 | Hospitalist Progress Note ---
Date of Service May 30, 2022 Assessment & Plan (1) Sepsis: Plan: - patient with tachycardia, leukocytosis, lactic acidosis - source likely stage IV sacral ulcer with likely underlying osteomyelitis - broad spectrum abx with intravenous cefepime, daptomycin and oral fluconazole - surgical consult-recommended surgical debridement, however, patient declined before but as of 05/25/22 she seems to be willing -Stayed in ICU and now in telemetry unit - debridement planned for 05/20 in am which she declined, Santyl also stopped. -Remained medically stable and the patient is wishing to have surgical debridement as of today that is 06-14 -Appreciate ID input and recommendation -The patient is now agreeable to go for surgical debridement with or without wound VAC -If surgical debridement is done antibiotic should be continued for 4 more weeks depending on the culture results. 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 -Bone biopsy pending-not showing any specimen in pathology section as of today -Remains otherwise stable Adjustment disorder with depressed mood Appreciate psychiatrist input and recommendation Vitamin B12, folate and TSH are normal Remains depressed but no acute delirium (2) Osteomyelitis: Plan: - 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 - received surgical debridement at [facility] with bone culture/biopsy - was on daptomycin there 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 3 times daily, plan to decrease to BID tomorrow Heparin drip held Also on usual metoprolol XL 25 mg daily Has been on amiodarone 200 mg daily and will need anticoagulation with Coumadin on discharge Heart rate remains controlled on amiodarone No cardiac symptoms (4) Ulcer of sacral region, stage 4: Plan: plan as above. Debridement today as per surgery Wound care has been consulted for possible wound VAC placement Please look at picture of the sacral wound this looks very scary looking (5) Radiation necrosis of skin and subcutaneous: Plan: - plan as above (6) Acute hyponatremia: Plan: - likely due to sepsis and decrease po intake -improving, cont to monitor. -nephro following in this complex ESRD patient. Sodium 130--129 Monitor-sodium level is 134 as of 05/26/2022 Sodium level is at 135 on 05/30/2022 (7) End-stage renal disease (ESRD): Plan: - has been on HD for the past year, per patient - HD catheter in right chest - no evidence of infection at catheter site - normal schedule is MWF -this past week was undergoing daily treatments with 3-3.5L UF removed each time on pressor support in preparation for surgical debridement of wound which she ultimately declined. -Has been on hemodialysis (8) Diabetes: Plan: - on insulin at home -cont insulin protocol per ICU (9) Hypothyroid: Plan: - patient is hypothyroid on labs with TSH 22, FT4 <0.25 - unclear if patient taking medication appropriately - after dosing her with levothyroxine here she is euthyroid with TSH 2.0 (10) Anemia: Plan: - chronic anemia in the setting of ESRD and GI losses (reported but not observed) and phlebotomy - was reportedly getting ?EPO injections with HD per Patient - continue EPO per renal - no signs of active bleeding at this time -Hb drop occurred, however, wondering if this may have had something to do with hemoconcentration with so much UF being removed and then after she went into afib, we added back 1L NSS and rehydrated her prior to the "drop". -no active bleeding although +FOBT noted overnight. - will monitor for now Hemoglobin remaining stable 7.2, now 7.5 No signs of active bleeding Hemoglobin is dropped to 7.3-we will monitor and may need blood transfusion Hemoglobin is 8.3 as of 05/30/2020 (11) Thrombocytopenia: Plan: - unclear chronicity - likely consumption in sepsis, ESRD, chronic illness - no signs of bleeding -resolved (12) Coagulopathy: Plan: - patient not on warfarin - in the setting of sepsis -DDx includes but not limited to DIC (less likely with elevated fibrinogen) vs poor nutrition. -cont to monitor 05/20: INR 2.0 INR is 1.4 as of 05/26/2022 Plan DVT ppx: Heparin drip on hold Code Status: changed to DNR after update by palliative doctor. She is not quite ready for hospice at this point and wants to keep going [facility] hemodialysis for now. Admission and Anticipated Discharge Date Admission Date: May 14, 2022 Subjective 05/25/2022 The patient was seen and examined in telemetry unit She complains to have bilateral leg pain but denies any chest pain, palpitation or shortness of breath Denies any abdominal pain, nausea and or vomiting Clinically looks depressed 05/26/2022 The patient was seen and examined in telemetry unit She has been feeling much better today though her blood pressure is low following getting Dilaudid IV Denies any significant symptoms She will be going for sacral wound debridement tomorrow 05/27/2022 The patient was seen and examined in telemetry unit She remains stable and awaiting surgical debridement of the sacral wound Denies any significant symptoms 05/28/2022 The patient was seen and examined in telemetry unit She complains today of left leg pain but otherwise denies any significant symptoms No fever and no chills, no nausea no vomiting Her blood pressure running low at 89/36 05/29/2022 The patient was seen and examined in telemetry unit She has been stable without any significant symptoms but her blood pressure has been running low at systolic 80s Apparently she was found to have carrying Lasix and phenylephrine in her bed and not sure whether she has been taking dose or not The medicines were taken away from her She received 500 of normal saline bolus last night to maintain blood pressure and she has had dialysis this morning 05/30/2022 The patient was seen and examined in telemetry unit She has been stable with blood pressure on the lower side at 95/56 without any symptoms Her pain is controlled Denies any fever and or chills, nausea and or vomiting Review of Systems Review of Systems: All systems reviewed and are unremarkable except as noted below Physical Exam Physical Exam: Lying in bed comfortably but looks depressed Constitutional: well developed, well nourished, + ill appearing and + obese Eyes: PERRL, conjunctivae normal, anicteric sclerae ENMT: external ear and nose normal, oropharynx normal Neck: trachea midline, no thyromegaly Respiratory: no respiratory distress Auscultation: + diminished lung sounds and + crackles (Minimal crackles at the bases) Cardiovascular: Rate/Rhythm: regular rate and regular rhythm; not tachycardic Heart Sounds: normal S1 and normal S2; no murmur Extremities: + edema (1+ edema bilaterally) Gastrointestinal (Abdomen): Inspection/Auscultation: normal bowel sounds; + abdomen abnormal to inspection (Has colostomy bag in site to) and abdomen not distended Percussion/Palpation: abdomen soft; abdomen nontender Musculoskeletal: No acute arthritis in any joint Neurologic: normal touch/pain/proprioception and moves all extremities Lymphatic: no cervical or axillary lymphadenopathy Results & Data Results & Data ([facility]) Vital Signs (Past 12 Hours) Vital Signs Temp Pulse Pulse Pulse Resp BP Pulse Ox 05/30/22 08:30 05/30/22 11:29 36.6 C 76 17 95/56 L 92 05/30/22 07:30 88 05/30/22 07:18 36.6 C 85 18 89/52 L 94 05/30/22 06:14 94 O2 Del Method 05/30/22 08:30 Room Air 05/30/22 11:29 Room Air 05/30/22 07:30 05/30/22 07:18 Room Air 05/30/22 06:14 Room Air Laboratory Results Short CBC 05/30/22 Range/Units 07:53 WBC 7.90 (4.8-10.8) K/ul Hgb 8.3 L (12.0-16.0) g/dl Hct 28.4 L (34.1-44.9) % Plt Count 127 L (130-400) K/uL BMP 05/30/22 07:53 Sodium 135 L Potassium 3.6 Chloride 101 Carbon Dioxide 27 BUN 26 H Creatinine 2.73 H Glucose 88 Calcium 8.5 Medications Administered Current Inpatient Medications Acetaminophen (Acetaminophen 1000 Mg/100 Ml Iv) 1,000 mg IV Q8H PRN PRN Reason: Pain Stop: 05/30/22 17:45 Last Admin: 05/27/22 18:10 Dose: 1,000 mg Amiodarone HCl (Amiodarone 200 Mg Tab) 200 mg PO DAILY ROSA M Stop: 06/26/22 08:59 Last Admin: 05/30/22 08:29 Dose: 200 mg Atorvastatin Calcium ([facility]orvastatin 40 Mg Tab) [facility] [place]: 06/14/22 08:59 Last Admin: 05/20/22 08:01 Dose: 40 mg Brimonidine Tartrate (Brimonidine Tartrate 0.2% 5ml) 1 drops OP BID [facility] Stop: 06/28/22 08:59 Last Admin: 05/30/22 08:26 Dose: 1 drops Collagenase (Collagenase Oint 30 Gm Tube) 1 appln EXT DAILY [facility] Stop: 06/14/22 08:59 Last Admin: 05/19/22 07:35 Dose: Not Given Dextrose (Dextrose 50% 50 Ml Syringe) 25 - 50 ml IV UD PRN; Protocol PRN Reason: Hypoglycemia Protocol Stop: 06/13/22 18:24 Last Admin: 05/16/22 11:55 Dose: 50 ml Fluconazole (Fluconazole 100 Mg Tab) [facility] [place] Stop: 07/03/22 08:59 Last Admin: 05/30/22 08:29 Dose: 200 mg Gabapentin (Gabapentin 100 Mg Cap) 100 [facility] [place] Stop: 06/14/22 08:59 Last Admin: 05/30/22 08:31 Dose: 100 mg Gabapentin (Gabapentin 100 Mg Cap) 200 mg PO HS [facility] Stop: 06/18/22 20:59 Last Admin: 05/20/22 20:56 Dose: 200 mg Glucagon (Glucagon For Inj 1 Mg Vial) 1 mg SQ UD PRN; Protocol PRN Reason: Hypoglycemia Protocol Stop: 06/13/22 18:24 Glucose (Glucose 40% Gel 15 Gm Tube) 15 - 30 gm PO UD PRN; Protocol PRN Reason: Hypoglycemia Protocol Stop: 06/13/22 18:24 Glucose (Glucose 10 Tab/Tube) 4 - 8 tab PO UD PRN; Protocol PRN Reason: Hypoglycemia Treatment Stop: 06/13/22 18:24 Heparin Sodium (Porcine) (Heparin Sod (Porcine) 1000 Unit/Ml) 2,000 units IV ONE ONE Stop: 05/31/22 07:01 Daptomycin 550 mg/ Syringe 11 mls @ 5.5 mls/min IV MoWe@1400 ROSA M; Protocol Stop: 07/05/22 13:59 Last Admin: 05/26/22 13:49 Dose: 5.5 mls/min Daptomycin 800 mg/ Syringe 16 mls @ 8 mls/min IV Fr@1400 [facility]; Protocol Stop: 07/02/22 13:59 Last Admin: 05/21/22 13:54 Dose: 8 mls/min Heparin Sodium/Dextrose (Heparin Sodium/Dextrose) 25,000 units in 500 mls @ 23 mls/hr IV .[id number] [facility]; Protocol Stop: 06/20/22 19:14 Last Titration: 05/23/22 13:20 Dose: Infused Cefepime HCl 1,000 mg/ Syringe 11.3 mls @ 5.5 mls/min IV Q24H [facility]; Protocol Stop: 07/03/22 17:59 Last Admin: 05/29/22 18:06 Dose: 5.5 mls/min Sodium Chloride (Nss 1000ml) 1,000 mls @ 0 mls/hr IV .Q0M PRN PRN Reason: For Hemodialysis Use ONLY Stop: 05/31/22 12:59 Insulin Aspart (Insulin Aspart Per Unit) 0 units SC ACHS [facility]; Protocol Stop: 06/20/22 11:29 Last Admin: 05/30/22 12:17 Dose: 8 units Insulin Glargine (Lantus Per Unit Charge) 16 units SQ HS [facility]; Protocol Stop: 06/29/22 20:59 Lactobacillus Acidophilus (Advanced Probiotic 1250 Mg Capsule) 2 cap PO DAILY [facility] Stop: 06/23/22 16:44 Last Admin: 05/30/22 08:29 Dose: 2 cap Latanoprost (Latanoprost 0.005% Op Soln 2.5 Ml Btl) 1 drops OP QPM [facility] Stop: 06/13/22 20:59 Last Admin: 05/29/22 20:40 Dose: 1 drops Levothyroxine Sodium (Levothyroxine Sodium 150 Mcg Tablet) 150 mcg PO DAILYBB [facility] Stop: 06/21/22 06:29 Last Admin: 05/30/22 05:20 Dose: 150 mcg Metoprolol Succinate (Metoprolol Succ 25mg Ext Rel Tab) 25 mg PO QAM [facility] Stop: 06/14/22 08:59 Last Admin: 05/30/22 08:28 Dose: Not Given Midodrine (Midodrine Hcl 10 Mg Tab) 10 mg PO TID@0800,1200,1700 [facility] Stop: 06/21/22 03:19 Last Admin: 05/30/22 11:46 Dose: 10 mg Miscellaneous (Carbohydrates For Hypoglycemia ) 15 - 30 gm PO UD PRN PRN Reason: Hypoglycemia Protocol Stop: 06/13/22 18:24 Miscellaneous Information (Pharmacy Glycemic Mgmt Consult) 1 each N/A UD PRN PRN Reason: Consult Stop: 06/22/22 17:05 Nitroglycerin (Nitroglycerin Sl 0.4 Mg/Tab Tab) 0.4 mg SL PRN PRN PRN Reason: Chest Pain Stop: 06/17/22 18:44 Ondansetron HCl (Ondansetron Inj 2 Mg/Ml 2 Ml Vial) 4 mg IV Q6H PRN PRN Reason: Nausea Stop: 06/13/22 18:19 Last Admin: 05/26/22 12:49 Dose: 4 mg Oxycodone HCl (Oxycodone Hcl Ir 5 Mg Tab (Immediate Release)) 2.5 mg PO DAILY PRN PRN Reason: Pain Stop: 05/31/22 03:56 Last Admin: 05/27/22 00:34 Dose: 2.5 mg Oxycodone/Acetaminophen (Oxycodone/Acetaminophen 5mg/325mg Tab) 1 tab PO Q6RWA PRN PRN Reason: Pain Stop: 06/11/22 07:16 Last Admin: 05/30/22 08:30 Dose: 1 tab Pantoprazole Sodium (Pantoprazole 40 Mg Tab) 40 mg PO DAILY ROSA M Stop: 06/14/22 08:59 Last Admin: 05/30/22 08:29 Dose: 40 mg Polyethylene Glycol (Polyethylene (Miralax) 17 Gm Pack) 17 gm PO DAILY PRN PRN Reason: Constipation Stop: 06/28/22 16:06 Last Admin: 05/29/22 16:15 Dose: 17 gm Ropinirole HCl (Ropinirole Hcl 0.25 Mg Tablet) 0.25 mg PO HS ROSA M Stop: 06/17/22 20:59 Last Admin: 05/29/22 20:40 Dose: 0.25 mg (1) Osteomyelitis Osteomyelitis location: unspecified site Osteomyelitis type: unspecified type Qualified Code(s): M86.9 - Osteomyelitis, unspecified
[2022-05-30] MEDS: CEFEPIME 1,000 MG in SYRINGE 0 ML IV SCH (17:42)
[2022-05-30] MEDS: rOPINIRole HCL 0.25 MG TABLET PO SCH (21:35)
[2022-05-30] MEDS: LATANOPROST 0.005% OP SOLN 2.5 ML BTL OP SCH (21:36)
[2022-05-30] MEDS: LANTUS PER UNIT CHARGE SQ SCH (21:36)
[2022-05-31] MEDS: LEVOTHYROXINE SODIUM 150 MCG TABLET PO SCH (05:38)
[2022-05-31] MEDS: ONDANSETRON INJ 2 MG/ML 2 ML VIAL IV PRN (06:16)
[2022-05-31] MEDS ORDERED: SODIUM CHLORIDE 0.9% 1000ML 1,000 ML IV PRN (07:00)
[2022-05-31] MEDS ORDERED: HEPARIN SOD (PORCINE) 1000 UNIT/ML IV ONE (07:00)
[2022-05-31] MEDS: INSULIN ASPART PER UNIT SC SCH ×4 (08:10→20:36)
[2022-05-31] MEDS: oxyCODONE/ACETAMINOPHEN 5mg/325mg TAB PO PRN ×2 (08:21→22:02)
[2022-05-31] MEDS: MIDODRINE HCL 10 MG TAB PO SCH ×3 (08:21→18:30)
--- NOTE | 2022-05-31 08:24 | Pharmacy Report ---
Pharmacy Glycemic Short Note 2 - Date of Service May 31, 2022 - Glycemic Short BSG Results (Last 24 hours): 05/30/22 05/30/22 05/30/22 07:53 11:30 16:12 Glucose 88 POC Glucose 92 126 H 05/30/22 05/31/22 20:31 07:19 Glucose POC Glucose 196 H 159 H OUTPATIENT ANTIDIABETIC REGIMEN: * Basaglar 42 units HS - reports following [facility] * Patient is also to be taking Trulicity and Novolog but does not. Has been discharged from the [facility] clinic due to failure to respond. * HbA1c = 5.9% (05/15/22) * However, this result is likely somewhat unreliable in ESRD patients d/t interactions between the A1c analyzing technique and high levels of urea in ESRD, reduced RBC life span, iron deficiency anemia, and EPO administration. HbA1c > 7.5% in ESRD patient may overestimate the extent of hyperglycemia in ESRD patients. ASSESSMENT: 05/31: * Patient received 38 units of insulin yesterday - 16 units basal + 22 units bolus. BSGs controlled: 93-62-999-196 mg/dL. * Fasting BSG acceptable at 159 mg/dL this morning. No change to basal. * Will tighten carb ratio slightly this morning secondary to BSGs trending up throughout the day. 05/30: * Leny received a total of 54 units of insulin yesterday (20 units basal + 34 units bolus). BSGs were elevated: [id number] mg/dL. * According to RN, patient did supply the patient with some fast food from outside the hospital last evening. These uncovered carbs likely led to hyperglycemia at bedtime. * Fasting BSG was significantly lower than any of the previous days at 81 mg/dL. Unsure if this was due to basal increase yesterday or large Novolog doses stacking at bedtime and midnight. * Regardless, will decrease basal by 20% today. * No change to Novolog. 05/28: * Patient received total of 23 units of insulin yesterday, of which 15 units were basal * Fasting BSG 176 mg/dL - plan to titrate up basal by ~20% for this evening * Continue same CF/CR for now PLAN FOR INPATIENT GLYCEMIC CONTROL: * Basal insulin * Lantus 16 units SC HS * Bolus insulin * NovoLog per scale ACHS * Goal Range: Low 110 mg/dL - High 140 mg/dL * Correction Factor: 20 mg/dL/unit * Nutritional / Prandial insulin per carb ratio of 1 unit per 6 grams CHO consumed
--- NOTE | 2022-05-31 08:44 | Communication Note ---
Date of Service: May 31, 2022 The patient can go off monitor for dialysis DR Winston Padgett
--- NOTE | 2022-05-31 09:27 | Surgery Progress Note ---
Date of Service May 31, 2022 Assessment & Plan (1) Ulcer of sacral region, stage 4: Plan: seen with Dr. Baldwin continue wound vac d/c planning ? [facility] Admission and Anticipated Discharge Date Admission Date: May 14, 2022 Supervising Physician Co-Signing Physician Notes As per the nursing service to help VAC system referral consent on chart Subjective wound vac in place, some soreness Results & Data ([facility]) Vital Signs (Past 12 Hours) Vital Signs Temp Pulse Pulse Resp BP Pulse Ox O2 Del Method 05/31/22 07:06 36.5 C 80 15 101/81 100 Nasal Cannula 05/31/22 03:57 36.7 C 62 16 93/63 L 98 Nasal Cannula 05/30/22 23:05 86 05/30/22 22:33 37 C 90 14 93/62 L 94 Nasal Cannula O2 Flow Rate 05/31/22 07:06 2 05/31/22 03:57 2 05/30/22 23:05 05/30/22 22:33 2 PG Care Time/CCT Total # of Minutes Spent Total Time Spent with Patient: Total time spent is greater than 50% in coordination of care (as documented) at patient's floor/unit and/or counseling patient: Coding Level of Care Code None Diagnoses Ulcer of sacral region, stage 4 L98.429
--- NOTE | 2022-05-31 10:41 | Dialysis Progress Note ---
Date of Service May 31, 2022 Assessment & Plan Admission and Anticipated Discharge Date Admission Date: May 14, 2022 Subjective Assessment & Plan (1) End-stage renal disease (ESRD): Plan: ESRD MWF at [facility] via dialysis catheter -Patient tolerating dialysis well .BP low but ?? accuracy. No symptoms try to get UF of 2.5 L today with midodrine 10 mg -max dose epo w/ tx Likely will do dialysis again tomorrow for 3 hrs and then from next week it will be 3 days a week. (2) Osteomyelitis: Plan: -S/p surgical debridement > surgery evaluating daily Subjective Seen in dialysis. tolerating well. BP low but no symptoms at all. Still w/ edema but improved. Review of Systems Review of Systems: All systems reviewed & are unremarkable except as noted in Subjective Physical Exam Constitutional: well developed, well nourished, + ill appearing, + obese, + frail appearing and cooperative; no acute distress Eyes: EOM intact bilaterally ENMT: Ears: no external ear abnormality Nose: no external nose abnormality Mouth: + dry oral mucous membranes Neck: no nuchal rigidity Respiratory: normal respiratory effort (on 2L 02nc) and able to speak in complete sentences; no labored breathing, does not use accessory muscles, no cough and not tachypneic Auscultation: + diminished lung sounds Cardiovascular: Rate/Rhythm: regular rate, regular rhythm and + tachycardic Extremities: + edema (2+ BLE) Gastrointestinal (Abdomen): Inspection/Auscultation: abdomen normal to inspection (w/ colostomy present) and normal bowel sounds Percussion/Palpation: abdomen soft; abdomen nontender Musculoskeletal: Extremities: + abnormal strength Skin: no rashes, warm and dry Psychiatric: Orientation: oriented to person, oriented to place and cooperative Affect: euthymic affect and + anxious affect Results & Data ([facility]) Vital Signs (Past 12 Hours) Vital Signs Temp Pulse Pulse Resp BP Pulse Ox O2 Del Method 05/31/22 09:20 36.5 C 8 L 05/31/22 08:00 85 05/31/22 08:00 96 H 05/31/22 07:06 36.5 C 80 15 101/81 100 Nasal Cannula 05/31/22 03:57 36.7 C 62 16 93/63 L 98 Nasal Cannula 05/30/22 23:05 86 O2 Flow Rate 05/31/22 09:20 05/31/22 08:00 05/31/22 08:00 05/31/22 07:06 2 05/31/22 03:57 2 05/30/22 23:05
[2022-05-31] MEDS: METOPROLOL SUCC 25MG EXT REL TAB PO SCH (13:42)
[2022-05-31] MEDS: GABAPENTIN 100 MG CAP PO SCH ×2 (13:42→20:30)
[2022-05-31] MEDS: AMIODARONE 200 MG TAB PO SCH (13:42)
[2022-05-31] MEDS: BRIMONIDINE TARTRATE 0.2% 5ML OP SCH ×2 (13:43→20:30)
[2022-05-31] MEDS: FLUCONAZOLE 100 MG TAB PO SCH (13:58)
[2022-05-31] MEDS: DAPTOmycin 550 MG in SYRINGE 0 ML IV SCH (14:27)
[2022-05-31] MEDS: ADVANCED PROBIOTIC 1250 MG CAPSULE PO SCH (14:27)
--- NOTE | 2022-05-31 14:50 | Hospitalist Progress Note ---
Date of Service May 31, 2022 Assessment & Plan (1) Sepsis: Plan: - patient with tachycardia, leukocytosis, lactic acidosis - source likely stage IV sacral ulcer with likely underlying osteomyelitis - broad spectrum abx with intravenous cefepime, daptomycin and oral fluconazole - surgical consult-recommended surgical debridement, however, patient declined before but as of 05/25/22 she seems to be willing -Stayed in ICU and now in telemetry unit - debridement planned for 05/20 in am which she declined, Santyl also stopped. -Remained medically stable and the patient is wishing to have surgical debridement as of today that is 06-14 -Appreciate ID input and recommendation -The patient is now agreeable to go for surgical debridement with or without wound VAC -If surgical debridement is done antibiotic should be continued for 4 more weeks depending on the culture results. 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 -No bone biopsy result has been there -We will continue with VRE management and wound VAC as per surgery Adjustment disorder with depressed mood Appreciate psychiatrist input and recommendation Vitamin B12, folate and TSH are normal Remains depressed but no acute delirium (2) Osteomyelitis: Plan: - 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 - received surgical debridement at [facility] with bone culture/biopsy - was on daptomycin there with 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 - tachycardia, leukocytosis, likely osteo on CT scan in ED - general surgery consulted - recommend chemical debridement with santyl -Status post bone biopsy on 05/27/2022-awaiting pathology-not sure if specimens were taken or not -No biopsy has been performed (3) New onset atrial fibrillation: Plan: Complex patient flipped into afib with rvr on domenic of 05/21 Was hypotensive with some improvement in hemodynamics with 1L fluid Appreciate cardiology input and recommendation Amiodarone bolus and drip started Remains in SR now Amiodarone increased to 200 mg p.o. 3 times daily, plan to decrease to BID ashli orrow Heparin drip held Also on usual metoprolol XL 25 mg daily Has been on amiodarone 200 mg daily and will need anticoagulation with Coumadin on discharge Heart rate remains controlled on amiodarone No cardiac symptoms We will continue with heparin and Coumadin till INR is therapeutic (4) Ulcer of sacral region, stage 4: Plan: plan as above. Debridement today as per surgery Wound care has been consulted for possible wound VAC placement Please look at picture of the sacral wound this looks very scary looking Wound VAC has been applied (5) Radiation necrosis of skin and subcutaneous: Plan: - plan as above (6) Acute hyponatremia: Plan: - likely due to sepsis and decrease po intake -improving, cont to monitor. -nephro following in this complex ESRD patient. Sodium 130--129 Monitor-sodium level is 134 as of 05/26/2022 Sodium level is at 135 on 05/30/2022 (7) End-stage renal disease (ESRD): Plan: - has been on HD for the past year, per patient - HD catheter in right chest - no evidence of infection at catheter site - normal schedule is MWF -this past week was undergoing daily treatments with 3-3.5L UF removed each time on pressor support in preparation for surgical debridement of wound which she ultimately declined. -Has been on hemodialysis (8) Diabetes: Plan: - on insulin at home -cont insulin protocol per ICU (9) Hypothyroid: Plan: - patient is hypothyroid on labs with TSH 22, FT4 <0.25 - unclear if patient taking medication appropriately - after dosing her with levothyroxine here she is euthyroid with TSH 2.0 (10) Anemia: Plan: - chronic anemia in the setting of ESRD and GI losses (reported but not observed) and phlebotomy - was reportedly getting ?EPO injections with HD per Patient - continue EPO per renal - no signs of active bleeding at this time -Hb drop occurred, however, wondering if this may have had something to do with hemoconcentration with so much UF being removed and then after she went into afib, we added back 1L NSS and rehydrated her prior to the "drop". -no active bleeding although +FOBT noted overnight. - will monitor for now Hemoglobin remaining stable 7.2, now 7.5 No signs of active bleeding Hemoglobin is dropped to 7.3-we will monitor and may need blood transfusion Hemoglobin is 8.3 as of 05/30/2020 (11) Thrombocytopenia: Plan: - unclear chronicity - likely consumption in sepsis, ESRD, chronic illness - no signs of bleeding -resolved (12) Coagulopathy: Plan: - patient not on warfarin - in the setting of sepsis -DDx includes but not limited to DIC (less likely with elevated fibrinogen) vs poor nutrition. -cont to monitor 05/20: INR 2.0 INR is 1.4 as of 05/24/2022 Started on Coumadin on 05/31/2022 Plan DVT ppx: Heparin drip on hold Code Status: changed to DNR after update by palliative doctor. She is not quite ready for hospice at this point and wants to keep going [facility]. Admission and Anticipated Discharge Date Admission Date: May 14, 2022 Subjective 05/25/2022 The patient was seen and examined in telemetry unit She complains to have bilateral leg pain but denies any chest pain, palpitation or shortness of breath Denies any abdominal pain, nausea and or vomiting Clinically looks depressed 05/26/2022 The patient was seen and examined in telemetry unit She has been feeling much better today though her blood pressure is low following getting Dilaudid IV Denies any significant symptoms She will be going for sacral wound debridement tomorrow 05/27/2022 The patient was seen and examined in telemetry unit She remains stable and awaiting surgical debridement of the sacral wound Denies any significant symptoms 05/28/2022 The patient was seen and examined in telemetry unit She complains today of left leg pain but otherwise denies any significant symptoms No fever and no chills, no nausea no vomiting Her blood pressure running low at 89/36 05/29/2022 The patient was seen and examined in telemetry unit She has been stable without any significant symptoms but her blood pressure has been running low at systolic 80s Apparently she was found to have carrying Lasix and phenylephrine in her bed and not sure whether she has been taking dose or not The medicines were taken away from her She received 500 of normal saline bolus last night to maintain blood pressure and she has had dialysis this morning 05/30/2022 The patient was seen and examined in telemetry unit She has been stable with blood pressure on the lower side at 95/56 without any symptoms Her pain is controlled Denies any fever and or chills, nausea and or vomiting 05/31/2022 Patient was seen and examined in telemetry unit Remains stable but generally weak and depressed Denies any significant symptoms Review of Systems Review of Systems: All systems reviewed and are unremarkable except as noted below Physical Exam Physical Exam: Lying in bed comfortably but looks depressed Constitutional: well developed, well nourished, + ill appearing and + obese Eyes: PERRL, conjunctivae normal, anicteric sclerae ENMT: external ear and nose normal, oropharynx normal Neck: trachea midline, no thyromegaly Respiratory: no respiratory distress Auscultation: + diminished lung sounds and + crackles (Minimal crackles at the bases) Cardiovascular: Rate/Rhythm: regular rate and regular rhythm; not tachycardic Heart Sounds: normal S1 and normal S2; no murmur Extremities: + edema (1+ edema bilaterally) Gastrointestinal (Abdomen): Inspection/Auscultation: normal bowel sounds; + abdomen abnormal to inspection (Has colostomy bag in site to) and abdomen not distended Percussion/Palpation: abdomen soft; abdomen nontender Musculoskeletal: No acute arthritis in any joint Neurologic: normal touch/pain/proprioception and moves all extremities Lymphatic: no cervical or axillary lymphadenopathy Results & Data Results & Data ([facility]) Vital Signs (Past 12 Hours) Vital Signs Temp Pulse Pulse Resp BP BP BP 05/31/22 09:00 05/31/22 12:30 36.5 C 90 110/60 05/31/22 12:00 88 102/42 L 05/31/22 12:35 36.8 C 89 17 97/59 L 05/31/22 11:30 86 94/56 L 05/31/22 11:00 80 87/35 L 05/31/22 10:30 89 102/48 L 05/31/22 10:00 79 116/62 05/31/22 09:30 80 139/87 05/31/22 09:20 36.5 C 8 L 05/31/22 08:00 85 05/31/22 08:00 96 H 05/31/22 07:06 36.5 C 80 15 101/81 05/31/22 03:57 36.7 C 62 16 93/63 L Pulse Ox O2 Del Method O2 Flow Rate 05/31/22 09:00 Nasal Cannula 2 05/31/22 12:30 05/31/22 12:00 05/31/22 12:35 99 Nasal Cannula 2 05/31/22 11:30 05/31/22 11:00 05/31/22 10:30 05/31/22 10:00 05/31/22 09:30 05/31/22 09:20 05/31/22 08:00 05/31/22 08:00 05/31/22 07:06 100 Nasal Cannula 2 05/31/22 03:57 98 Nasal Cannula 2 Medications Administered Current Inpatient Medications Amiodarone HCl (Amiodarone 200 Mg Tab) 200 mg PO DAILY [facility] Stop: 06/26/22 08:59 Last Admin: 05/31/22 13:42 Dose: 200 mg Atorvastatin Calcium (Atorvastatin 40 Mg Tab) 40 mg PO QAM [facility] Stop: 06/14/22 08:59 Last Admin: 05/20/22 08:01 Dose: 40 mg Brimonidine Tartrate (Brimonidine Tartrate 0.2% 5ml) 1 drops OP BID [facility] Stop: 06/28/22 08:59 Last Admin: 05/31/22 13:43 Dose: 1 drops Collagenase (Collagenase Oint 30 Gm Tube) 1 appln EXT DAILY [facility] Stop: 06/14/22 08:59 Last Admin: 05/19/22 07:35 Dose: Not Given Dextrose (Dextrose 50% 50 Ml Syringe) 25 - 50 ml IV UD PRN; Protocol PRN Reason: Hypoglycemia Protocol Stop: 06/13/22 18:24 Last Admin: 05/16/22 11:55 Dose: 50 ml Gabapentin (Gabapentin 100 Mg Cap) 100 mg PO QAM [facility] Stop: 06/14/22 08:59 Last Admin: 05/31/22 13:42 Dose: 100 mg Gabapentin (Gabapentin 100 Mg Cap) 200 mg PO HS [facility] Stop: 06/18/22 20:59 Last Admin: 05/20/22 20:56 Dose: 200 mg Glucagon (Glucagon For Inj 1 Mg Vial) 1 mg SQ UD PRN; Protocol PRN Reason: Hypoglycemia Protocol Stop: 06/13/22 18:24 Glucose (Glucose 40% Gel 15 Gm Tube) 15 - 30 gm PO UD PRN; Protocol PRN Reason: Hypoglycemia Protocol Stop: 06/13/22 18:24 Glucose (Glucose 10 Tab/Tube) 4 - 8 tab PO UD PRN; Protocol PRN Reason: Hypoglycemia Treatment Stop: 06/13/22 18:24 Daptomycin 550 mg/ Syringe 11 mls @ 5.5 mls/min IV MoWe@1400 [facility]; Protocol Stop: 07/05/22 13:59 Last Admin: 05/31/22 14:27 Dose: 5.5 mls/min Daptomycin 800 mg/ Syringe 16 mls @ 8 mls/min IV Fr@1400 [facility]; Protocol Stop: 07/02/22 13:59 Last Admin: 05/21/22 13:54 Dose: 8 mls/min Heparin Sodium/Dextrose (Heparin Sodium/Dextrose) 25,000 units in 500 mls @ 23 mls/hr IV .[id number] [facility]; Protocol Stop: 06/20/22 19:14 Last Titration: 05/23/22 13:20 Dose: Infused Insulin Aspart (Insulin Aspart Per Unit) 0 units SC ACHS [facility]; Protocol Stop: 06/20/22 11:29 Last Admin: 05/31/22 12:44 Dose: Not Given Insulin Glargine (Lantus Per Unit Charge) 16 units SQ HS [facility]; Protocol Stop: 06/29/22 20:59 Last Admin: 05/30/22 21:36 Dose: 16 units Lactobacillus Acidophilus (Advanced Probiotic 1250 Mg Capsule) 2 cap PO DAILY [facility] Stop: 06/23/22 16:44 Last Admin: 05/31/22 14:27 Dose: 2 cap Latanoprost (Latanoprost 0.005% Op Soln 2.5 Ml Btl) 1 drops OP QPM [facility] Stop: 06/13/22 20:59 Last Admin: 05/30/22 21:36 Dose: 1 drops Levothyroxine Sodium (Levothyroxine Sodium 150 Mcg Tablet) 150 mcg PO DAILYBB [facility] Stop: 06/21/22 06:29 Last Admin: 05/31/22 05:38 Dose: 150 mcg Metoprolol Succinate (Metoprolol Succ 25mg Ext Rel Tab) 25 mg PO QAM [facility] Stop: 06/14/22 08:59 Last Admin: 05/31/22 13:42 Dose: 25 mg Midodrine (Midodrine Hcl 10 Mg Tab) 10 mg PO TID@0800,1200,1700 [facility] Stop: 06/21/22 03:19 Last Admin: 05/31/22 13:42 Dose: 10 mg Miscellaneous (Carbohydrates For Hypoglycemia ) 15 - 30 gm PO UD PRN PRN Reason: Hypoglycemia Protocol Stop: 06/13/22 18:24 Miscellaneous (Daptomycin Post-Hd - Pending Order) 1 each N/A SuTuThSa@1600 [facility] Stop: 07/01/22 15:59 Miscellaneous Information (Pharmacy Glycemic Mgmt Consult) 1 each N/A UD PRN PRN Reason: Consult Stop: 06/22/22 17:05 Nitroglycerin (Nitroglycerin Sl 0.4 Mg/Tab Tab) 0.4 mg SL PRN PRN PRN Reason: Chest Pain Stop: 06/17/22 18:44 Ondansetron HCl (Ondansetron Inj 2 Mg/Ml 2 Ml Vial) 4 mg IV Q6H PRN PRN Reason: Nausea Stop: 06/13/22 18:19 Last Admin: 05/31/22 06:16 Dose: 4 mg Oxycodone/Acetaminophen (Oxycodone/Acetaminophen 5mg/325mg Tab) 1 tab PO Q6RWA PRN PRN Reason: Pain Stop: 06/11/22 07:16 Last Admin: 05/31/22 08:21 Dose: 1 tab Pantoprazole Sodium (Pantoprazole 40 Mg Tab) 40 mg PO DAILY [facility] Stop: 06/14/22 08:59 Last Admin: 05/30/22 08:29 Dose: 40 mg Polyethylene Glycol (Polyethylene (Miralax) 17 Gm Pack) 17 gm PO DAILY PRN PRN Reason: Constipation Stop: 06/28/22 16:06 Last Admin: 05/29/22 16:15 Dose: 17 gm Ropinirole HCl (Ropinirole Hcl 0.25 Mg Tablet) 0.25 mg PO HS [facility] Stop: 06/17/22 20:59 Last Admin: 05/30/22 21:35 Dose: 0.25 mg Warfarin Sodium (Warfarin Sod 5 Mg Tab) 5 mg PO DAILY@1600 [facility] Stop: 06/30/22 15:59 (1) Osteomyelitis Osteomyelitis location: unspecified site Osteomyelitis type: unspecified type Qualified Code(s): M86.9 - Osteomyelitis, unspecified
[2022-05-31] MEDS: HEPARIN SODIUM/DEXTROSE 25,000 UNITS/500 ML BAG IV SCH ×2 (15:08→22:31)
[2022-05-31] MEDS: PANTOprazole 40 MG TAB PO SCH (15:10)
[2022-05-31] MEDS: WARFARIN SOD 5 MG TAB PO SCH (17:53)
[2022-05-31] MEDS: rOPINIRole HCL 0.25 MG TABLET PO SCH (20:30)
[2022-05-31] MEDS: LATANOPROST 0.005% OP SOLN 2.5 ML BTL OP SCH (20:30)
[2022-05-31] MEDS: LANTUS PER UNIT CHARGE SQ SCH (20:36)
[2022-05-31 21:25] LABS: Partial Thromboplastin Ratio 3.2
[2022-05-31 21:29] LABS: Partial Thromboplastin Time 88.5 Seconds (21.0-31.0)
[2022-06-01] MEDS ORDERED: SODIUM CHLORIDE 0.9% 500 ML IV SCH (00:45)
[2022-06-01] MEDS: LEVOTHYROXINE SODIUM 150 MCG TABLET PO SCH (05:04)
[2022-06-01 05:15] LABS: Basophils # (auto) 0.08 K/uL (0-0.2); Basophils % (auto) 0.9 %; Eosinophils # (auto) 0.26 K/uL (0-0.50); Hematocrit (blood only) 23.8 % (34.1-44.9); Hemoglobin 7.2 g/dl (12.0-16.0); Immature Granulocytes # (auto) 0.05 K/uL (0.00-0.02); Immature Granulocytes % (auto) 0.6 %; Lymphocytes # (auto) 0.91 K/uL (1.2-3.4); Lymphocytes % (auto) 10.4 %; Mean Corpuscular Hemoglobin 30.6 pg (25.0-34.0); Mean Corpuscular Hgb Conc 30.3 g/dL (32.0-36.0); Mean Corpuscular Volume 101.3 fL (80.0-100.0); Mean Platelet Volume 11.7 fL (9.4-12.3); Monocytes % (auto) 10.2 %; Neutrophils # (auto) 6.59 K/uL (1.4-6.5); Neutrophils % (auto) 74.9 %; Nucleated RBC # (auto) 0.05 K/uL (0-0); Nucleated RBC % (auto) 0.6 %; Platelet Count 108 K/uL (130-400); RDW Coefficient of Variation 23.2 % (11.5-14.5); Red Blood Count 2.35 M/uL (3.93-5.22); White Blood Count 8.79 K/ul (4.8-10.8)
[2022-06-01 05:39] LABS: BUN Creatinine Ratio 8.4 (10-20); Calcium 7.9 mg/dl (8.5-10.1); Creatinine Clr Calc Pharmacy 21.9 ml/min; Est GFR (Non-African American) 18.1 ml/min; Potassium 3.8 mmol/L (3.5-5.1)
[2022-06-01 05:42] LABS: INR 1.6 (0.9-1.1); Partial Thromboplastin Ratio 3.6; Prothrombin Time 17.1 Seconds (9.0-12.0)
[2022-06-01 06:03] LABS: Partial Thromboplastin Time 100.1 Seconds (21.0-31.0)
[2022-06-01 06:16] LABS: Anisocytosis Present; Target Cells 2+
--- NOTE | 2022-06-01 06:59 | Surgery Progress Note ---
Date of Service June 01, 2022 Assessment & Plan (1) Ulcer of sacral region, stage 4: Plan: VAC system in place stage IV ulceration of sacrum Pictures taken yesterday reviewed May need to consider some Santyl application to the deep part of the ulceration VAC system referral consent still not on chart Admission and Anticipated Discharge Date Admission Date: May 14, 2022 Subjective No new complaints Results & Data ([facility]) Vital Signs (Past 12 Hours) Vital Signs Temp Pulse Pulse Pulse Pulse Resp BP 06/01/22 03:30 37.0 C 74 14 06/01/22 01:48 72 87/53 L 06/01/22 00:27 72 80/50 L 05/31/22 22:30 78 05/31/22 23:33 36.7 C 79 16 74/41 L 05/31/22 20:00 05/31/22 20:03 36.8 C 80 22 BP Pulse Ox O2 Del Method O2 Flow Rate 06/01/22 03:30 75/46 L 99 Nasal Cannula 2 06/01/22 01:48 06/01/22 00:27 94 Nasal Cannula 2 05/31/22 22:30 05/31/22 23:33 98 Nasal Cannula 05/31/22 20:00 Room Air 05/31/22 20:03 92/51 L 96 PG Care Time/CCT Total # of Minutes Spent Total Time Spent with Patient: Total time spent is greater than 50% in coordination of care (as documented) at patient's floor/unit and/or counseling patient: Coding Level of Care Code None Diagnoses Ulcer of sacral region, stage 4 L98.429
[2022-06-01] MEDS ORDERED: SODIUM CHLORIDE 0.9% 250 ML IV PRN (08:12)
[2022-06-01] MEDS: BRIMONIDINE TARTRATE 0.2% 5ML OP SCH ×2 (08:17→20:25)
[2022-06-01] MEDS: MIDODRINE HCL 10 MG TAB PO SCH ×3 (08:17→16:18)
[2022-06-01] MEDS: AMIODARONE 200 MG TAB PO SCH (08:17)
[2022-06-01] MEDS: GABAPENTIN 100 MG CAP PO SCH ×2 (08:18→20:26)
[2022-06-01] MEDS: METOPROLOL SUCC 25MG EXT REL TAB PO SCH (08:19)
[2022-06-01] MEDS: PANTOprazole 40 MG TAB PO SCH (08:19)
[2022-06-01] MEDS: ADVANCED PROBIOTIC 1250 MG CAPSULE PO SCH (08:19)
[2022-06-01] MEDS: INSULIN ASPART PER UNIT SC SCH ×4 (08:23→20:34)
[2022-06-01] MEDS: oxyCODONE/ACETAMINOPHEN 5mg/325mg TAB PO PRN (08:23)
[2022-06-01 14:50] LABS: Partial Thromboplastin Ratio 1.9
[2022-06-01 14:51] LABS: Partial Thromboplastin Time 52.8 Seconds (21.0-31.0)
[2022-06-01] MEDS: WARFARIN SOD 5 MG TAB PO SCH (16:23)
--- NOTE | 2022-06-01 17:01 | Hospitalist Progress Note ---
Date of Service June 01, 2022 Assessment & Plan (1) Sepsis: Plan: - patient with tachycardia, leukocytosis, lactic acidosis - source likely stage IV sacral ulcer with likely underlying osteomyelitis - broad spectrum abx with intravenous cefepime, daptomycin and oral fluconazole - surgical consult-recommended surgical debridement, however, patient declined before but as of 05/25/22 she seems to be willing -Stayed in ICU and now in telemetry unit - debridement planned for 05/20 in am which she declined, Santyl also stopped. -Remained medically stable and the patient is wishing to have surgical debridement as of today that is 06-14 -Appreciate ID input and recommendation -The patient is now agreeable to go for surgical debridement with or without wound VAC -If surgical debridement is done antibiotic should be continued for 4 more weeks depending on the culture results. 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 -No bone biopsy result has been there -We will continue with VRE management and wound VAC as per surgery Adjustment disorder with depressed mood Appreciate psychiatrist input and recommendation Vitamin B12, folate and TSH are normal Remains depressed but no acute delirium (2) Anemia: Plan: - chronic anemia in the setting of ESRD and GI losses (reported but not observed) and phlebotomy - was reportedly getting ?EPO injections with HD per Patient - continue EPO per renal - no signs of active bleeding at this time -Hb drop occurred, however, wondering if this may have had something to do with hemoconcentration with so much UF being removed and then after she went into afib, we added back 1L NSS and rehydrated her prior to the "drop". -no active bleeding although +FOBT noted overnight. 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 - received surgical debridement at [facility] with bone culture/biopsy - was on daptomycin there with 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 - tachycardia, leukocytosis, likely osteo on CT scan in ED - general surgery consulted - recommend chemical debridement with santyl -Status post bone biopsy on 05/27/2022-awaiting pathology-not sure if specimens were taken or not -No biopsy has been performed (4) New onset atrial fibrillation: Plan: Complex patient flipped into afib with rvr on domenic of 05/21 Was hypotensive with some improvement in hemodynamics with 1L fluid Appreciate cardiology input and recommendation Amiodarone bolus and drip started Remains in SR now Amiodarone increased to 200 mg p.o. 3 times daily, plan to decrease to BID tomorrow Heparin drip held Also on usual metoprolol XL 25 mg daily Has been on amiodarone 200 mg daily and will need anticoagulation with Coumadin on discharge Heart rate remains controlled on amiodarone No cardiac symptoms We will continue with heparin and Coumadin till INR is therapeutic INR is 1.6 as of 06/01/2022 (5) Ulcer of sacral region, stage 4: Plan: plan as above. Debridement today as per surgery Wound care has been consulted for possible wound VAC placement Please look at picture of the sacral wound this looks very scary looking Wound VAC has been applied (6) Radiation necrosis of skin and subcutaneous: Plan: - plan as above (7) Acute hyponatremia: Plan: - likely due to sepsis and decrease po intake -improving, cont to monitor. -nephro following in this complex ESRD patient. Sodium 130--129 Monitor-sodium level is 134 as of 05/26/2022 Sodium level is at 135 on 05/30/2022 and remains stable (8) End-stage renal disease (ESRD): Plan: - has been on HD for the past year, per patient - HD catheter in right chest - no evidence of infection at catheter site - normal schedule is MWF -this past week was undergoing daily treatments with 3-3.5L UF removed each time on pressor support in preparation for surgical debridement of wound which she ultimately declined. -Has been on hemodialysis (9) Diabetes: Plan: - on insulin at home -cont insulin protocol per ICU (10) Hypothyroid: Plan: - patient is hypothyroid on labs with TSH 22, FT4 <0.25 - unclear if patient taking medication appropriately - after dosing her with levothyroxine here she is euthyroid with TSH 2.0 (11) Thrombocytopenia: Plan: - unclear chronicity - likely consumption in sepsis, ESRD, chronic illness - no signs of bleeding -resolved (12) Coagulopathy: Plan: - patient not on warfarin - in the setting of sepsis -DDx includes but not limited to DIC (less likely with elevated fibrinogen) vs poor nutrition. -cont to monitor 05/20: INR 2.0 INR is 1.4 as of 05/24/2022 Started on Coumadin on 05/31/2022 Plan DVT ppx: Heparin drip on hold Code Status: changed to DNR after update by palliative doctor. She is not quite ready for hospice at this point and wants to keep going wt hemodialysis for now. Admission and Anticipated Discharge Date Admission Date: May 14, 2022 Subjective 05/25/2022 The patient was seen and examined in telemetry unit She complains to have bilateral leg pain but denies any chest pain, palpitation or shortness of breath Denies any abdominal pain, nausea and or vomiting Clinically looks depressed 05/26/2022 The patient was seen and examined in telemetry unit She has been feeling much better today though her blood pressure is low following getting Dilaudid IV Denies any significant symptoms She will be going for sacral wound debridement tomorrow 05/27/2022 The patient was seen and examined in telemetry unit She remains stable and awaiting surgical debridement of the sacral wound Denies any significant symptoms 05/28/2022 The patient was seen and examined in telemetry unit She complains today of left leg pain but otherwise denies any significant symptoms No fever and no chills, no nausea no vomiting Her blood pressure running low at 89/36 05/29/2022 The patient was seen and examined in telemetry unit She has been stable without any significant symptoms but her blood pressure has been running low at systolic 80s Apparently she was found to have carrying Lasix and phenylephrine in her bed and not sure whether she has been taking dose or not The medicines were taken away from her She received 500 of normal saline bolus last night to maintain blood pressure and she has had dialysis this morning 05/30/2022 The patient was seen and examined in telemetry unit She has been stable with blood pressure on the lower side at 95/56 without any symptoms Her pain is controlled Denies any fever and or chills, nausea and or vomiting 05/31/2022 Patient was seen and examined in telemetry unit Remains stable but generally weak and depressed Denies any significant symptoms 06/01/2022 The patient was seen and examined in telemetry unit She has been stable and the blood pressure is running on the lower side at systolic 90s Denies any symptoms except weakness Review of Systems Review of Systems: All systems reviewed and are unremarkable except as noted below Physical Exam Physical Exam: Lying in bed comfortably but looks depressed Constitutional: well developed, well nourished, + ill appearing and + obese Eyes: PERRL, conjunctivae normal, anicteric sclerae ENMT: external ear and nose normal, oropharynx normal Neck: trachea midline, no thyromegaly Respiratory: no respiratory distress Auscultation: + diminished lung sounds and + crackles (Minimal crackles at the bases) Cardiovascular: Rate/Rhythm: regular rate and regular rhythm; not tachycardic Heart Sounds: normal S1 and normal S2; no murmur Extremities: + edema (1+ edema bilaterally) Gastrointestinal (Abdomen): Inspection/Auscultation: normal bowel sounds; + abdomen abnormal to inspection (Has colostomy bag in site to) and abdomen not distended Percussion/Palpation: abdomen soft; abdomen nontender Neurologic: normal touch/pain/proprioception and moves all extremities Lymphatic: no cervical or axillary lymphadenopathy Results & Data Results & Data ([facility]) Vital Signs (Past 12 Hours) Vital Signs Temp Pulse Resp BP BP Pulse Ox O2 Del Method 06/01/22 14:48 36.4 C L 75 18 101/62 99 Room Air 06/01/22 11:54 86/50 L 06/01/22 08:00 Nasal Cannula 06/01/22 11:21 36.4 C L 70 18 92/87 L 98 Nasal Cannula 06/01/22 08:13 36.5 C 79 18 72/39 L 99 Nasal Cannula O2 Flow Rate 06/01/22 14:48 06/01/22 11:54 06/01/22 08:00 2 06/01/22 11:21 2 06/01/22 08:13 2 Laboratory Results Short CBC 06/01/22 Range/Units 04:49 WBC 8.79 (4.8-10.8) K/ul Hgb 7.2 L (12.0-16.0) g/dl Hct 23.8 L (34.1-44.9) % Plt Count 108 L (130-400) K/uL [facility] 06/01/22 04:49 Sodium 135 L Potassium 3.8 Chloride 102 Carbon Dioxide 29 BUN 22 Creatinine 2.63 H Glucose 124 H Calcium 7.9 L Medications Administered Current Inpatient Medications Amiodarone HCl (Amiodarone 200 Mg Tab) 200 mg PO DAILY ROSA M Stop: 06/26/22 08:59 Last Admin: 06/01/22 08:17 Dose: 200 mg Atorvastatin Calcium (Atorvastatin 40 Mg Tab) 40 mg PO QAM ROSA M Stop: 06/14/22 08:59 Last Admin: 05/20/22 08:01 Dose: 40 mg Brimonidine Tartrate (Brimonidine Tartrate 0.2% 5ml) 1 drops OP BID ROSA M Stop: 06/28/22 08:59 Last Admin: 06/01/22 08:17 Dose: 1 drops Collagenase (Collagenase Oint 30 Gm Tube) 1 appln EXT DAILY ROSA M Stop: 06/14/22 08:59 Last Admin: 05/19/22 07:35 Dose: Not Given Dextrose (Dextrose 50% 50 Ml Syringe) 25 - 50 ml IV UD PRN; Protocol PRN Reason: Hypoglycemia Protocol Stop: 06/13/22 18:24 Last Admin: 05/16/22 11:55 Dose: 50 ml Epoetin Felipe (Epoetin Felipe 10,000 Units/Ml Vial) 10,000 units IV TODAY@0700 ROSA M Stop: 06/02/22 23:59 Gabapentin (Gabapentin 100 Mg Cap) 100 mg PO QAM ROSA M Stop: 06/14/22 08:59 Last Admin: 06/01/22 08:18 Dose: 100 mg Gabapentin (Gabapentin 100 Mg Cap) 200 mg PO HS ROSA M Stop: 06/18/22 20:59 Last Admin: 05/31/22 20:30 Dose: 200 mg Glucagon (Glucagon For Inj 1 Mg Vial) 1 mg SQ UD PRN; Protocol PRN Reason: Hypoglycemia Protocol Stop: 06/13/22 18:24 Glucose (Glucose 40% Gel 15 Gm Tube) 15 - 30 gm PO UD PRN; Protocol PRN Reason: Hypoglycemia Protocol Stop: 06/13/22 18:24 Glucose (Glucose 10 Tab/Tube) 4 - 8 tab PO UD PRN; Protocol PRN Reason: Hypoglycemia Treatment Stop: 06/13/22 18:24 Heparin Sodium (Porcine) (Heparin Sod (Porcine) 1000 Unit/Ml) 2,000 units IV TODAY@0700 [facility] Stop: 06/02/22 23:59 Daptomycin 550 mg/ Syringe 11 mls @ 5.5 mls/min IV MoWe@1400 ROSA M; Protocol Stop: 07/05/22 13:59 Last Admin: 05/31/22 14:27 Dose: 5.5 mls/min Daptomycin 800 mg/ Syringe 16 mls @ 8 mls/min IV Fr@1400 ROSA M; Protocol Stop: 07/02/22 13:59 Last Admin: 05/21/22 13:54 Dose: 8 mls/min Heparin Sodium/Dextrose (Heparin Sodium/Dextrose) 25,000 units in 500 mls @ 17 mls/hr IV .Q24H [facility]; Protocol Stop: 06/20/22 19:14 Last Titration: 06/01/22 15:02 Dose: 850 units/hr, 17 mls/hr Sodium Chloride (Nss) 250 mls @ 15 mls/hr IV .[id number] PRN PRN Reason: For Transfusion Stop: 06/01/22 18:13 Sodium Chloride (Nss 1000ml) 1,000 mls @ 0 mls/hr IV .Q0M PRN PRN Reason: For Hemodialysis Use ONLY Stop: 06/02/22 12:59 Insulin Aspart (Insulin Aspart Per Unit) 0 units SC ACHS [facility]; Protocol Stop: 06/20/22 11:29 Last Admin: 06/01/22 11:58 Dose: 7 units Insulin Glargine (Lantus Per Unit Charge) 16 units SQ HS [facility]; Protocol Stop: 06/29/22 20:59 Last Admin: 05/31/22 20:36 Dose: 16 units Lactobacillus Acidophilus (Advanced Probiotic 1250 Mg Capsule) 2 cap PO DAILY [facility] Stop: 06/23/22 16:44 Last Admin: 06/01/22 08:19 Dose: 2 cap Latanoprost (Latanoprost 0.005% Op Soln 2.5 Ml Btl) 1 drops OP QPM [facility] Stop: 06/13/22 20:59 Last Admin: 05/31/22 20:30 Dose: 1 drops Levothyroxine Sodium (Levothyroxine Sodium 150 Mcg Tablet) 150 mcg PO DAILYBB [facility] Stop: 06/21/22 06:29 Last Admin: 06/01/22 05:04 Dose: 150 mcg Metoprolol Succinate (Metoprolol Succ 25mg Ext Rel Tab) 25 mg PO QAM [facility] Stop: 06/14/22 08:59 Last Admin: 06/01/22 08:19 Dose: Not Given Midodrine (Midodrine Hcl 10 Mg Tab) 10 mg PO TID@0800,1200,1700 [facility] Stop: 06/21/22 03:19 Last Admin: 06/01/22 16:18 Dose: 10 mg Miscellaneous (Carbohydrates For Hypoglycemia ) 15 - 30 gm PO UD PRN PRN Reason: Hypoglycemia Protocol Stop: 06/13/22 18:24 Miscellaneous (Daptomycin Post-Hd - Pending Order) 1 each N/A SuTuThSa@1800 [facility] Stop: 07/01/22 17:59 Miscellaneous Information (Pharmacy Glycemic Mgmt Consult) 1 each N/A UD PRN PRN Reason: Consult Stop: 06/22/22 17:05 Nitroglycerin (Nitroglycerin Sl 0.4 Mg/Tab Tab) 0.4 mg SL PRN PRN PRN Reason: Chest Pain Stop: 06/17/22 18:44 Ondansetron HCl (Ondansetron Inj 2 Mg/Ml 2 Ml Vial) 4 mg IV Q6H PRN PRN Reason: Nausea Stop: 06/13/22 18:19 Last Admin: 05/31/22 06:16 Dose: 4 mg Oxycodone/Acetaminophen (Oxycodone/Acetaminophen 5mg/325mg Tab) 1 tab PO Q6RWA PRN PRN Reason: Pain Stop: 06/11/22 07:16 Last Admin: 06/01/22 08:23 Dose: 1 tab Pantoprazole Sodium (Pantoprazole 40 Mg Tab) 40 mg PO DAILY [facility] Stop: 06/14/22 08:59 Last Admin: 06/01/22 08:19 Dose: 40 mg Polyethylene Glycol (Polyethylene (Miralax) 17 Gm Pack) 17 gm PO DAILY PRN PRN Reason: Constipation Stop: 06/28/22 16:06 Last Admin: 05/29/22 16:15 Dose: 17 gm Ropinirole HCl (Ropinirole Hcl 0.25 Mg Tablet) 0.25 mg PO HS ROSA M Stop: 06/17/22 20:59 Last Admin: 05/31/22 20:30 Dose: 0.25 mg Warfarin Sodium (Warfarin Sod 5 Mg Tab) 5 mg PO DAILY@1600 [facility] Stop: 06/30/22 15:59 Last Admin: 06/01/22 16:23 Dose: 5 mg (1) Osteomyelitis Osteomyelitis location: unspecified site Osteomyelitis type: unspecified type Qualified Code(s): M86.9 - Osteomyelitis, unspecified
[2022-06-01] MEDS: LATANOPROST 0.005% OP SOLN 2.5 ML BTL OP SCH (20:25)
[2022-06-01] MEDS: LANTUS PER UNIT CHARGE SQ SCH (20:35)
[2022-06-01] MEDS: HEPARIN SODIUM/DEXTROSE 25,000 UNITS/500 ML BAG IV SCH (20:36)
[2022-06-01] MEDS: rOPINIRole HCL 0.25 MG TABLET PO SCH (20:37)
[2022-06-02 05:38] LABS: Partial Thromboplastin Ratio 3.5
[2022-06-02] MEDS: LEVOTHYROXINE SODIUM 150 MCG TABLET PO SCH (05:42)
[2022-06-02 06:00] LABS: Prothrombin Time 56.7 Seconds (9.0-12.0)
[2022-06-02 06:10] LABS: Partial Thromboplastin Time 96.5 Seconds (21.0-31.0)
--- NOTE | 2022-06-02 06:42 | Surgery Progress Note ---
Date of Service June 02, 2022 Assessment & Plan (1) Ulcer of sacral region, stage 4: Plan: Continue with the VAC system Do not have referral for VAC system to be signed I have asked that be placed in the chart Admission and Anticipated Discharge Date Admission Date: May 14, 2022 Results & Data ([facility]) Vital Signs (Past 12 Hours) Vital Signs Temp Pulse Pulse Resp BP Pulse Ox O2 Del Method 06/02/22 04:20 36.6 C 75 18 84/52 L 100 Nasal Cannula 06/01/22 22:30 69 06/01/22 20:00 Nasal Cannula 06/01/22 22:38 36.8 C 74 18 91/59 L 99 Nasal Cannula 06/01/22 19:33 36.6 C 79 20 87/55 L 99 Nasal Cannula O2 Flow Rate 06/02/22 04:20 2 06/01/22 22:30 06/01/22 20:00 2 06/01/22 22:38 2 06/01/22 19:33 1 PG Care Time/CCT Total # of Minutes Spent Total Time Spent with Patient: Total time spent is greater than 50% in coordination of care (as documented) at patient's floor/unit and/or counseling patient: Coding Level of Care Code None Diagnoses Ulcer of sacral region, stage 4 L98.429
[2022-06-02 06:59] LABS: INR 5.9 (0.9-1.1)
[2022-06-02] MEDS ORDERED: EPOETIN ALFA 10,000 UNITS/ML VIAL IV SCH (07:00)
[2022-06-02] MEDS ORDERED: HEPARIN SOD (PORCINE) 1000 UNIT/ML IV SCH (07:00)
[2022-06-02] MEDS ORDERED: SODIUM CHLORIDE 0.9% 1000ML 1,000 ML IV PRN (07:00)
[2022-06-02] MEDS: METOPROLOL SUCC 25MG EXT REL TAB PO SCH (08:18)
[2022-06-02] MEDS: PANTOprazole 40 MG TAB PO SCH (08:24)
[2022-06-02] MEDS: MIDODRINE HCL 10 MG TAB PO SCH ×3 (08:24→17:15)
[2022-06-02] MEDS: AMIODARONE 200 MG TAB PO SCH (08:24)
[2022-06-02] MEDS: GABAPENTIN 100 MG CAP PO SCH ×2 (08:24→21:08)
[2022-06-02] MEDS: BRIMONIDINE TARTRATE 0.2% 5ML OP SCH ×2 (08:25→21:08)
[2022-06-02] MEDS: ADVANCED PROBIOTIC 1250 MG CAPSULE PO SCH (08:25)
[2022-06-02] MEDS: INSULIN ASPART PER UNIT SC SCH ×4 (08:29→21:03)
--- NOTE | 2022-06-02 08:31 | Pharmacy Report ---
Pharmacy Glycemic Short Note 2 - Date of Service June 02, 2022 - Glycemic Short BSG Results (Last 24 hours): 06/01/22 06/01/22 06/01/22 11:17 16:39 20:14 POC Glucose 100 H 127 H 150 H 06/02/22 07:07 POC Glucose 147 H OUTPATIENT ANTIDIABETIC REGIMEN: * Basaglar 42 units HS - reports following [facility] * Patient is also to be taking Trulicity and Novolog but does not. Has been discharged from the [facility] clinic due to failure to respond. * HbA1c = 5.9% (05/15/22) * However, this result is likely somewhat unreliable in ESRD patients d/t interactions between the A1c analyzing technique and high levels of urea in ESRD, reduced RBC life span, iron deficiency anemia, and EPO administration. HbA1c > 7.5% in ESRD patient may overestimate the extent of hyperglycemia in ESRD patients. ASSESSMENT: 06/02: * Leny received 39 units of insulin yesterday - 16 units basal + 23 units bolus. BSGs controlled: 802-182-360-150 mg/dL. * Fasting BSG acceptable at 147 mg/dL today. Dialysis today. * No changes to regimen necessary. 05/31: * Patient received 38 units of insulin yesterday - 16 units basal + 22 units bolus. BSGs controlled: 68-61-636-196 mg/dL. * Fasting BSG acceptable at 159 mg/dL this morning. No change to basal. * Will tighten carb ratio slightly this morning secondary to BSGs trending up throughout the day. 05/30: * Leny received a total of 54 units of insulin yesterday (20 units basal + 34 units bolus). BSGs were elevated: 251-19-831-375-288 mg/dL. * According to RN, patient did supply the patient with some fast food from outside the hospital last evening. These uncovered carbs likely led to hyperglycemia at bedtime. * Fasting BSG was significantly lower than any of the previous days at 81 mg/dL. Unsure if this was due to basal increase yesterday or large Novolog doses stacking at bedtime and midnight. * Regardless, will decrease basal by 20% today. * No change to Novolog. PLAN FOR INPATIENT GLYCEMIC CONTROL: * Basal insulin * Lantus 16 units SC HS * Bolus insulin * NovoLog per scale ACHS * Goal Range: Low 110 mg/dL - High 140 mg/dL * Correction Factor: 20 mg/dL/unit * Nutritional / Prandial insulin per carb ratio of 1 unit per 6 grams CHO consumed
--- NOTE | 2022-06-02 10:38 | Nephrology Progress Note ---
Date of Service June 02, 2022 Assessment & Plan Admission and Anticipated Discharge Date Admission Date: May 14, 2022 Subjective Assessment & Plan (1) End-stage renal disease (ESRD): Plan: ESRD MWF at [facility] via dialysis catheter Dialysis for today--3.5 hrs and will do 2 PRBC during Dialysis (2) Osteomyelitis: Plan: -S/p surgical debridement Subjective Seen for ESRD. No shortness of breath. Hgb low and is getting PRBC. Review of Systems Review of Systems: All other systems were reviewed and negative except as noted in HPI Physical Exam Physical Exam: General exam: Appears comfortable, no acute distress HEENT: Pupils are equal and reactive to light Neck: No JVD, neck is supple trachea is midline Respiratory system: Clear breath sounds bilaterally. Gastrointestinal: Abdomen is soft, non distended, non tender, bowel sounds are present CVS: Regular rate and rhythm. No murmurs, rubs or gallops Musculoskeletal: No joint or muscle tenderness Extremities: Non tender, 1+ edema, peripheral pulses are present Neuro: Oriented, no tremors, no focal neurological deficits Skin: No rashes Results & Data ([facility]) Vital Signs (Past 12 Hours) Vital Signs Temp Pulse Pulse Resp BP BP Pulse Ox 06/02/22 07:32 78 18 93/52 L 98 06/02/22 07:00 71 06/02/22 04:20 36.6 C 75 18 84/52 L 100 06/01/22 22:38 36.8 C 74 18 91/59 L 99 O2 Del Method O2 Flow Rate 06/02/22 07:32 Nasal Cannula 06/02/22 07:00 06/02/22 04:20 Nasal Cannula 2 06/01/22 22:38 Nasal Cannula 2
--- NOTE | 2022-06-02 10:42 | Communication Note ---
Date of Service: June 02, 2022 Can go Off monitor for dialysis Dr Winston Padgett
[2022-06-02] MEDS: DAPTOmycin 550 MG in SYRINGE 0 ML IV SCH (15:21)
--- NOTE | 2022-06-02 18:08 | Hospitalist Progress Note ---
Date of Service June 02, 2022 Assessment & Plan (1) Sepsis: Plan: - patient with tachycardia, leukocytosis, lactic acidosis - source likely stage IV sacral ulcer with likely underlying osteomyelitis - broad spectrum abx with intravenous cefepime, daptomycin and oral fluconazole - surgical consult-recommended surgical debridement, however, patient declined before but as of 05/25/22 she seems to be willing -Stayed in ICU and now in telemetry unit - debridement planned for 05/20 in am which she declined, Santyl also stopped. -Remained medically stable and the patient is wishing to have surgical debridement as of today that is 06-14 -Appreciate ID input and recommendation -The patient is now agreeable to go for surgical debridement with or without wound VAC -If surgical debridement is done antibiotic should be continued for 4 more weeks depending on the culture results. 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 -No bone biopsy result has been there -We will continue with VRE management and wound VAC as per surgery -No fever and or chills and white count is not elevated Adjustment disorder with depressed mood Appreciate psychiatrist input and recommendation Vitamin B12, folate and TSH are normal Remains depressed but no acute delirium (2) Anemia: Plan: - chronic anemia in the setting of ESRD and GI losses (reported but not observed) and phlebotomy - was reportedly getting ?EPO injections with HD per Patient - continue EPO per renal - no signs of active bleeding at this time -Hb drop occurred, however, wondering if this may have had something to do with hemoconcentration with so much UF being removed and then after she went into afib, we added back 1L NSS and rehydrated her prior to the "drop". -no active bleeding although +FOBT noted overnight. 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 - received surgical debridement at [facility] with bone culture/biopsy - was on daptomycin there with 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 - tachycardia, leukocytosis, likely osteo on CT scan in ED - general surgery consulted - recommend chemical debridement with santyl -Status post bone biopsy on 05/27/2022-awaiting pathology-not sure if specimens were taken or not -No biopsy has been performed (4) New onset atrial fibrillation: Plan: Complex patient flipped into afib with rvr on domenic of 05/21 Was hypotensive with some improvement in hemodynamics with 1L fluid Appreciate cardiology input and recommendation Amiodarone bolus and drip started Remains in SR now Amiodarone increased to 200 mg p.o. 3 times daily, plan to decrease to BID tomorrow Heparin drip held Also on usual metoprolol XL 25 mg daily Has been on amiodarone 200 mg daily and will need anticoagulation with Coumadin on discharge Heart rate remains controlled on amiodarone No cardiac symptoms We will continue with heparin and Coumadin till INR is therapeutic INR is 5.9 today and we will hold Coumadin Recheck INR tomorrow (5) Ulcer of sacral region, stage 4: Plan: plan as above. Debridement today as per surgery Wound care has been consulted for possible wound VAC placement Please look at picture of the sacral wound this looks very scary looking Wound VAC has been applied (6) Radiation necrosis of skin and subcutaneous: Plan: - plan as above (7) Acute hyponatremia: Plan: - likely due to sepsis and decrease po intake -improving, cont to monitor. -nephro following in this complex ESRD patient. Sodium 130--129 Monitor-sodium level is 134 as of 05/26/2022 Sodium level is at 135 on 05/30/2022 and remains stable (8) End-stage renal disease (ESRD): Plan: - has been on HD for the past year, per patient - HD catheter in right chest - no evidence of infection at catheter site - normal schedule is MWF -this past week was undergoing daily treatments with 3-3.5L UF removed each time on pressor support in preparation for surgical debridement of wound which she ultimately declined. -Has been on hemodialysis (9) Diabetes: Plan: - on insulin at home -cont insulin protocol per ICU (10) Hypothyroid: Plan: - patient is hypothyroid on labs with TSH 22, FT4 <0.25 - unclear if patient taking medication appropriately - after dosing her with levothyroxine here she is euthyroid with TSH 2.0 (11) Thrombocytopenia: Plan: - unclear chronicity - likely consumption in sepsis, ESRD, chronic illness - no signs of bleeding -resolved (12) Coagulopathy: Plan: - patient not on warfarin - in the setting of sepsis -DDx includes but not limited to DIC (less likely with elevated fibrinogen) vs poor nutrition. -cont to monitor 05/20: INR 2.0 INR is 1.4 as of 05/24/2022 Started on Coumadin on 05/31/2022 INR noted to be 5.9 today and Coumadin is on hold Plan DVT ppx: Heparin drip on hold Code Status: changed to DNR after update by palliative doctor. She is not quite ready for hospice at this point and wants to keep going wt hemodialysis for now. Admission and Anticipated Discharge Date Admission Date: May 14, 2022 Subjective 05/25/2022 The patient was seen and examined in telemetry unit She complains to have bilateral leg pain but denies any chest pain, palpitation or shortness of breath Denies any abdominal pain, nausea and or vomiting Clinically looks depressed 05/26/2022 The patient was seen and examined in telemetry unit She has been feeling much better today though her blood pressure is low following getting Dilaudid IV Denies any significant symptoms She will be going for sacral wound debridement tomorrow 05/27/2022 The patient was seen and examined in telemetry unit She remains stable and awaiting surgical debridement of the sacral wound Denies any significant symptoms 05/28/2022 The patient was seen and examined in telemetry unit She complains today of left leg pain but otherwise denies any significant symptoms No fever and no chills, no nausea no vomiting Her blood pressure running low at 89/36 05/29/2022 The patient was seen and examined in telemetry unit She has been stable without any significant symptoms but her blood pressure has been running low at systolic 80s Apparently she was found to have carrying Lasix and phenylephrine in her bed and not sure whether she has been taking dose or not The medicines were taken away from her She received 500 of normal saline bolus last night to maintain blood pressure and she has had dialysis this morning 05/30/2022 The patient was seen and examined in telemetry unit She has been stable with blood pressure on the lower side at 95/56 without any symptoms Her pain is controlled Denies any fever and or chills, nausea and or vomiting 05/31/2022 Patient was seen and examined in telemetry unit Remains stable but generally weak and depressed Denies any significant symptoms 06/01/2022 The patient was seen and examined in telemetry unit She has been stable and the blood pressure is running on the lower side at systolic 90s Denies any symptoms except weakness 06/02/2022 The patient was seen and examined in telemetry unit She remains stable and denies any significant symptoms Remains weak and lethargic Review of Systems Review of Systems: All systems reviewed and are unremarkable except as noted below Musculoskeletal: No significant pain involving the extremities Physical Exam Physical Exam: Lying in bed comfortably but looks depressed Constitutional: well developed, well nourished, + ill appearing and + obese Eyes: PERRL, conjunctivae normal, anicteric sclerae ENMT: external ear and nose normal, oropharynx normal Neck: trachea midline, no thyromegaly Respiratory: no respiratory distress Auscultation: + diminished lung sounds and + crackles (Minimal crackles at the bases) Cardiovascular: Rate/Rhythm: regular rate and regular rhythm; not tachycardic Heart Sounds: normal S1 and normal S2; no murmur Extremities: + edema (1+ edema bilaterally) Gastrointestinal (Abdomen): Inspection/Auscultation: normal bowel sounds; + abdomen abnormal to inspection (Has colostomy bag in site to) and abdomen not distended Percussion/Palpation: abdomen soft; abdomen nontender Neurologic: moves all extremities Generally very weak and lethargic Lymphatic: no cervical or axillary lymphadenopathy Results & Data Results & Data ([facility]) Vital Signs (Past 12 Hours) Vital Signs Temp Pulse Pulse Pulse Resp BP BP 06/02/22 15:19 88 18 94/58 L 06/02/22 14:55 36.6 C 84 86/50 L 06/02/22 14:30 87 90/53 L 06/02/22 13:30 85 93/43 L 06/02/22 14:00 87 98/51 L 06/02/22 13:45 83 99/47 L 06/02/22 13:54 36.6 C 85 18 99/55 L 06/02/22 13:15 80 103/51 L 06/02/22 12:30 79 88/47 L 06/02/22 12:15 83 78/43 L 06/02/22 13:00 84 94/45 L 06/02/22 12:47 36.4 C L 81 16 114/86 06/02/22 12:46 81 114/86 06/02/22 11:02 36.6 C 83 06/02/22 12:00 88 83/45 L 06/02/22 11:45 86 85/46 L 06/02/22 11:30 85 84/46 L 06/02/22 11:09 79 106/50 L 06/02/22 11:45 36.6 C 86 18 85/46 L 06/02/22 07:32 78 18 93/52 L 06/02/22 07:00 71 Pulse Ox O2 Del Method O2 Flow Rate 06/02/22 15:19 98 Nasal Cannula 2 06/02/22 14:55 06/02/22 14:30 06/02/22 13:30 06/02/22 14:00 06/02/22 13:45 06/02/22 13:54 06/02/22 13:15 06/02/22 12:30 06/02/22 12:15 06/02/22 13:00 06/02/22 12:47 06/02/22 12:46 06/02/22 11:02 06/02/22 12:00 06/02/22 11:45 06/02/22 11:30 06/02/22 11:09 06/02/22 11:45 06/02/22 07:32 98 Nasal Cannula 06/02/22 07:00 Medications Administered Current Inpatient Medications Amiodarone HCl (Amiodarone 200 Mg Tab) 200 mg PO DAILY [facility] Stop: 06/26/22 08:59 Last Admin: 06/02/22 08:24 Dose: 200 mg Atorvastatin Calcium (Atorvastatin 40 Mg Tab) 40 mg PO QAM [facility] Stop: 06/14/22 08:59 Last Admin: 05/20/22 08:01 Dose: 40 mg Brimonidine Tartrate (Brimonidine Tartrate 0.2% 5ml) 1 drops OP BID [facility] M Stop: 06/28/22 08:59 Last Admin: 06/02/22 08:25 Dose: 1 drops Collagenase (Collagenase Oint 30 Gm Tube) 1 appln EXT DAILY [facility] Stop: 06/14/22 08:59 Last Admin: 05/19/22 07:35 Dose: Not Given Dextrose (Dextrose 50% 50 Ml Syringe) 25 - 50 ml IV UD PRN; Protocol PRN Reason: Hypoglycemia Protocol Stop: 06/13/22 18:24 Last Admin: 05/16/22 11:55 Dose: 50 ml Epoetin Felipe (Epoetin Felipe 10,000 Units/Ml Vial) 10,000 units IV TODAY@0700 [facility] Stop: 06/02/22 23:59 Last Admin: 06/02/22 11:37 Dose: 10,000 units Gabapentin (Gabapentin 100 Mg Cap) 100 mg PO QAM [facility] Stop: 06/14/22 08:59 Last Admin: 06/02/22 08:24 Dose: 100 mg Gabapentin (Gabapentin 100 Mg Cap) 200 mg PO HS [facility] Stop: 06/18/22 20:59 Last Admin: 06/01/22 20:26 Dose: 200 mg Glucagon (Glucagon For Inj 1 Mg Vial) 1 mg SQ UD PRN; Protocol PRN Reason: Hypoglycemia Protocol Stop: 06/13/22 18:24 Glucose (Glucose 40% Gel 15 Gm Tube) 15 - 30 gm PO UD PRN; Protocol PRN Reason: Hypoglycemia Protocol Stop: 06/13/22 18:24 Glucose (Glucose 10 Tab/Tube) 4 - 8 tab PO UD PRN; Protocol PRN Reason: Hypoglycemia Treatment Stop: 06/13/22 18:24 Heparin Sodium (Porcine) (Heparin Sod (Porcine) 1000 Unit/Ml) 2,000 units IV TODAY@0700 [facility] Stop: 06/02/22 23:59 Last Admin: 06/02/22 11:44 Dose: Not Given Daptomycin 550 mg/ Syringe 11 mls @ 5.5 mls/min IV MoWe@1400 [facility]; Protocol Stop: 07/05/22 13:59 Last Admin: 06/02/22 15:21 Dose: 5.5 mls/min Daptomycin 800 mg/ Syringe 16 mls @ 8 mls/min IV Fr@1400 [facility]; Protocol Stop: 07/02/22 13:59 Last Admin: 05/21/22 13:54 Dose: 8 mls/min Heparin Sodium/Dextrose (Heparin Sodium/Dextrose) 25,000 units in 500 mls @ 0 mls/hr IV .Q0M [facility]; Protocol Stop: 06/20/22 19:14 Last Titration: 06/02/22 06:11 Dose: 0 units/hr, 0 mls/hr Insulin Aspart (Insulin Aspart Per Unit) 0 units SC ACHS [facility]; Protocol Stop: 06/20/22 11:29 Last Admin: 06/02/22 17:09 Dose: 8 units Insulin Glargine (Lantus Per Unit Charge) 16 units SQ HS [facility]; Protocol Stop: 06/29/22 20:59 Last Admin: 06/01/22 20:35 Dose: 16 units Lactobacillus Acidophilus (Advanced Probiotic 1250 Mg Capsule) 2 cap PO DAILY [facility] Stop: 06/23/22 16:44 Last Admin: 06/02/22 08:25 Dose: 2 cap Latanoprost (Latanoprost 0.005% Op Soln 2.5 Ml Btl) 1 drops OP QPM [facility] Stop: 06/13/22 20:59 Last Admin: 06/01/22 20:25 Dose: 1 drops Levothyroxine Sodium (Levothyroxine Sodium 150 Mcg Tablet) 150 mcg PO DAILYBB [facility] Stop: 06/21/22 06:29 Last Admin: 06/02/22 05:42 Dose: 150 mcg Metoprolol Succinate (Metoprolol Succ 25mg Ext Rel Tab) 25 mg PO QAM [facility] Stop: 06/14/22 08:59 Last Admin: 06/02/22 08:18 Dose: Not Given Midodrine (Midodrine Hcl 10 Mg Tab) 10 mg PO TID@0800,1200,1700 [facility] Stop: 06/21/22 03:19 Last Admin: 06/02/22 17:15 Dose: 10 mg Miscellaneous (Carbohydrates For Hypoglycemia ) 15 - 30 gm PO UD PRN PRN Reason: Hypoglycemia Protocol Stop: 06/13/22 18:24 Miscellaneous (Daptomycin Post-Hd - Pending Order) 1 each N/A SuTuThSa@1800 [facility] Stop: 07/01/22 17:59 Last Admin: 06/01/22 17:02 Dose: Not Given Miscellaneous Information (Pharmacy Glycemic Mgmt Consult) 1 each N/A UD PRN PRN Reason: Consult Stop: 06/22/22 17:05 Nitroglycerin (Nitroglycerin Sl 0.4 Mg/Tab Tab) 0.4 mg SL PRN PRN PRN Reason: Chest Pain Stop: 06/17/22 18:44 Ondansetron HCl (Ondansetron Inj 2 Mg/Ml 2 Ml Vial) 4 mg IV Q6H PRN PRN Reason: Nausea Stop: 06/13/22 18:19 Last Admin: 05/31/22 06:16 Dose: 4 mg Oxycodone/Acetaminophen (Oxycodone/Acetaminophen 5mg/325mg Tab) 1 tab PO Q6RWA PRN PRN Reason: Pain Stop: 06/11/22 07:16 Last Admin: 06/01/22 08:23 Dose: 1 tab Pantoprazole Sodium (Pantoprazole 40 Mg Tab) 40 mg PO DAILY [facility] Stop: 06/14/22 08:59 Last Admin: 06/02/22 08:24 Dose: 40 mg Polyethylene Glycol (Polyethylene (Miralax) 17 Gm Pack) 17 gm PO DAILY PRN PRN Reason: Constipation Stop: 06/28/22 16:06 Last Admin: 05/29/22 16:15 Dose: 17 gm Ropinirole HCl (Ropinirole Hcl 0.25 Mg Tablet) 0.25 mg PO HS [facility] Stop: 06/17/22 20:59 Last Admin: 06/01/22 20:37 Dose: 0.25 mg Warfarin Sodium (Warfarin Sod 5 Mg Tab) 5 mg PO DAILY@1600 [facility] Stop: 06/30/22 15:59 Last Admin: 06/01/22 16:23 Dose: 5 mg (1) Osteomyelitis Osteomyelitis location: unspecified site Osteomyelitis type: unspecified type Qualified Code(s): M86.9 - Osteomyelitis, unspecified
[2022-06-02] MEDS: HEPARIN SODIUM/DEXTROSE 25,000 UNITS/500 ML BAG IV SCH (20:09)
[2022-06-02] MEDS: LANTUS PER UNIT CHARGE SQ SCH (21:03)
[2022-06-02] MEDS: rOPINIRole HCL 0.25 MG TABLET PO SCH (21:08)
[2022-06-02] MEDS: LATANOPROST 0.005% OP SOLN 2.5 ML BTL OP SCH (21:08)
[2022-06-03] MEDS: LEVOTHYROXINE SODIUM 150 MCG TABLET PO SCH (05:34)
[2022-06-03 07:27] LABS: Hematocrit (blood only) 30.1 % (34.1-44.9); Hemoglobin 9.4 g/dl (12.0-16.0); Mean Corpuscular Hemoglobin 30.1 pg (25.0-34.0); Mean Corpuscular Hgb Conc 31.2 g/dL (32.0-36.0); Mean Corpuscular Volume 96.5 fL (80.0-100.0); Mean Platelet Volume 11.8 fL (9.4-12.3); Nucleated RBC # (auto) 0.04 K/uL (0-0); Nucleated RBC % (auto) 0.5 %; Platelet Count 124 K/uL (130-400); RDW Coefficient of Variation 23.3 % (11.5-14.5); RDW Standard Deviation 77.4 fL (36.4-46.3); Red Blood Count 3.12 M/uL (3.93-5.22); White Blood Count 8.67 K/ul (4.8-10.8)
[2022-06-03 07:41] LABS: BUN Creatinine Ratio 8.5 (10-20); Calcium 8.2 mg/dl (8.5-10.1); Creatinine Clr Calc Pharmacy 23.4 ml/min; Est GFR (African American) 22.6 ml/min; Est GFR (Non-African American) 19.5 ml/min; Potassium 3.7 mmol/L (3.5-5.1)
[2022-06-03 07:53] LABS: Anisocytosis Present; Basophils # (auto) 0.13 K/uL (0-0.2); Basophils % (auto) 1.5 %; Eosinophils # (auto) 0.18 K/uL (0-0.50); Eosinophils % (auto) 2.1 %; Immature Granulocytes # (auto) 0.04 K/uL (0.00-0.02); Immature Granulocytes % (auto) 0.5 %; Lymphocytes # (auto) 0.77 K/uL (1.2-3.4); Lymphocytes % (auto) 8.9 %; Macrocytosis Present; Monocytes # (auto) 0.91 K/uL (0.24-0.82); Monocytes % (auto) 10.5 %; Neutrophils # (auto) 6.64 K/uL (1.4-6.5); Neutrophils % (auto) 76.5 %; Target Cells 1+
[2022-06-03 07:56] LABS: Partial Thromboplastin Ratio 2.3; Prothrombin Time > 90.0 Seconds (9.0-12.0)
[2022-06-03] MEDS: METOPROLOL SUCC 25MG EXT REL TAB PO SCH (08:00)
[2022-06-03 08:05] LABS: INR > 9.6 (0.9-1.1)
[2022-06-03 08:06] LABS: Partial Thromboplastin Time 61.9 Seconds (21.0-31.0)
[2022-06-03] MEDS: INSULIN ASPART PER UNIT SC SCH ×4 (08:15→21:34)
[2022-06-03] MEDS: ADVANCED PROBIOTIC 1250 MG CAPSULE PO SCH (08:52)
[2022-06-03] MEDS: MIDODRINE HCL 10 MG TAB PO SCH ×3 (08:52→17:04)
[2022-06-03] MEDS: PANTOprazole 40 MG TAB PO SCH (08:52)
[2022-06-03] MEDS: GABAPENTIN 100 MG CAP PO SCH ×2 (08:52→21:40)
[2022-06-03] MEDS: AMIODARONE 200 MG TAB PO SCH (08:52)
[2022-06-03] MEDS: BRIMONIDINE TARTRATE 0.2% 5ML OP SCH ×2 (08:52→21:35)
--- NOTE | 2022-06-03 08:59 | Pharmacy Report ---
Pharmacy Glycemic Short Note 2 - Date of Service June 03, 2022 - Glycemic Short BSG Results (Last 24 hours): 06/02/22 06/02/22 06/02/22 16:19 20:11 20:13 Glucose POC Glucose 235 H 333 H* 316 H* 06/03/22 06/03/22 06:54 07:19 Glucose 111 H POC Glucose 99 OUTPATIENT ANTIDIABETIC REGIMEN: * Basaglar 42 units HS - reports following [facility] * Patient is also to be taking Trulicity and Novolog but does not. Has been discharged from the [facility] clinic due to failure to respond. * HbA1c = 5.9% (05/15/22) * However, this result is likely somewhat unreliable in ESRD patients d/t interactions between the A1c analyzing technique and high levels of urea in ESRD, reduced RBC life span, iron deficiency anemia, and EPO administration. HbA1c > 7.5% in ESRD patient may overestimate the extent of hyperglycemia in ESRD patients. ASSESSMENT: 06/03: * Received 33 units of insulin yesterday - 16 units basal + 17 units bolus. BSGs were elevated: 147-235-316 mg/dL. * Fasting BSG a little below goal today at 99 mg/dL. Will decrease basal this evening slightly. * No change to Novolog. Hyperglycemia last evening likely secondary to dialysis and no lunch coverage. 06/02: * Leny received 39 units of insulin yesterday - 16 units basal + 23 units bolus. BSGs controlled: 882-266-158-150 mg/dL. * Fasting BSG acceptable at 147 mg/dL today. Dialysis today. * No changes to regimen necessary. 05/31: * Patient received 38 units of insulin yesterday - 16 units basal + 22 units bolus. BSGs controlled: 11-35-228-196 mg/dL. * Fasting BSG acceptable at 159 mg/dL this morning. No change to basal. * Will tighten carb ratio slightly this morning secondary to BSGs trending up throughout the day. 05/30: * Leny received a total of 54 units of insulin yesterday (20 units basal + 34 units bolus). BSGs were elevated: 689-20-294-375-288 mg/dL. * According to RN, patient did supply the patient with some fast food from outside the hospital last evening. These uncovered carbs likely led to hyperglycemia at bedtime. * Fasting BSG was significantly lower than any of the previous days at 81 mg/dL. Unsure if this was due to basal increase yesterday or large Novolog doses stacking at bedtime and midnight. * Regardless, will decrease basal by 20% today. * No change to Novolog. PLAN FOR INPATIENT GLYCEMIC CONTROL: * Basal insulin * Lantus 15 units SC HS * Bolus insulin * NovoLog per scale ACHS * Goal Range: Low 110 mg/dL - High 140 mg/dL * Correction Factor: 20 mg/dL/unit * Nutritional / Prandial insulin per carb ratio of 1 unit per 6 grams CHO consumed
[2022-06-03] MEDS ORDERED: PHYTONADIONE 5 MG TAB PO ONE (10:00)
--- NOTE | 2022-06-03 17:23 | Hospitalist Progress Note ---
Date of Service June 03, 2022 Assessment & Plan (1) Sepsis: Plan: Source likely stage IV sacral ulcer with likely underlying osteomyelitis Initially was on broad spectrum abx with intravenous cefepime, daptomycin and oral fluconazole S/P debridement of sacral ulcer with bone biopsy on 05/27/2022 Appreciate Surgery Help Appreciate ID recommendations Continue wound VAC Sacral Wound Grew: Enterococcus VRE Continue daptomycin Will likely need 4 weeks of antibiotic therapy. Adjustment disorder with depressed mood Appreciate psychiatrist input and recommendation Vitamin B12, folate and TSH are normal stable (2) Anemia: Plan: Chronic anemia in the setting of ESRD and GI losses (reported but not observed) and phlebotomy Was reportedly getting ?EPO injections with HD per Patient - continue EPO per renal No signs of active bleeding Positive FOBT S/P PRBCs during HD Monitor CBC (3) Osteomyelitis: Plan: Patient with 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/unstageable Had surgical debridement at [facility] with bone culture/biopsy Was on daptomycin there with 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 General surgery recommend chemical debridement with santyl No biopsy has been performed (4) New onset atrial fibrillation: Plan: Continue amiodarone, metoprolol Appreciate cardiology input and recommendation IV heparin discontinued Coumadin on hold secondary to supratherapeutic INR Monitor INR (5) Ulcer of sacral region, stage 4: Plan: plan as above. (6) Radiation necrosis of skin and subcutaneous: Plan: - plan as above (7) Acute hyponatremia: Plan: - likely due to sepsis and decrease po intake Sodium level stable Monitor (8) End-stage renal disease (ESRD): Plan: Has been on HD for the past year, per patient Normal HD schedule MWF Continue hemodialysis as per Nephrology (9) Diabetes: Plan: Continue insulin per protocol (10) Hypothyroid: Plan: TSH 22, FT4 <0.25 unclear if patient taking medication appropriately TSH normalized with restarting levothyroxine (11) Thrombocytopenia: Plan: unclear chronicity likely consumption in sepsis, ESRD, chronic illness no signs of bleeding Monitor (12) Coagulopathy: Plan: Coumadin on hold Monitor INR Plan DVT px: INR supratherapeutic Code Status: DNI/DNR Admission and Anticipated Discharge Date Admission Date: May 14, 2022 Subjective Patient is seen and examined at bedside States having mild soreness of sacral wound Otherwise no complaints Denies any chest pain, shortness of breath, dizziness, nausea, abdominal pain Review of Systems Review of Systems: All systems reviewed & are unremarkable except as noted in Subjective Physical Exam Physical Exam: Physical Exam: Vitals signs as noted above General Appearance:Obese, ill appearing Head: normocephalic, Atraumatic Eyes: normal inspection, EOMI Neck: supple, Trachea midline Respiratory/Chest: Decreased breath sounds, scattered crackles, No accessory muscle use Cardiovascular: S1, S2, No murmur Abdomen/GI:Soft, Non tender, +Colostomy, Bowel sounds present Extremities/Musculoskeletal:normal inspection, 1+ edema Neurologic/Psych:AAOX3, grossly no focal neurological deficits Skin: normal color, warm, +Sacral wound, Wound Vac Results & Data Results & Data ([facility]) Vital Signs (Past 12 Hours) Vital Signs Temp Pulse Pulse Resp BP Pulse Ox O2 Del Method 06/03/22 16:38 36.5 C 80 18 104/60 97 Nasal Cannula 06/03/22 08:00 Nasal Cannula 06/03/22 15:00 76 06/03/22 10:57 36.5 C 72 18 94/57 L 98 Nasal Cannula 06/03/22 07:38 36.6 C 78 18 92/57 L 97 Nasal Cannula 06/03/22 07:00 69 O2 Flow Rate 06/03/22 16:38 2 06/03/22 08:00 2 06/03/22 15:00 06/03/22 10:57 2 06/03/22 07:38 2 06/03/22 07:00 Laboratory Results Short CBC 06/03/22 Range/Units 06:54 WBC 8.67 (4.8-10.8) K/ul Hgb 9.4 L (12.0-16.0) g/dl Hct 30.1 L (34.1-44.9) % Plt Count 124 L (130-400) K/uL BMP 06/03/22 06:54 Sodium 133 L Potassium 3.7 Chloride 100 Carbon Dioxide 30 BUN 21 Creatinine 2.47 H Glucose 111 H Calcium 8.2 L Cardiac Enzymes 06/03/22 Range/Units 06:54 Total Creatine Kinase 52 (26-192) U/L (1) Osteomyelitis Osteomyelitis location: unspecified site Osteomyelitis type: unspecified type Qualified Code(s): M86.9 - Osteomyelitis, unspecified
[2022-06-03] MEDS: oxyCODONE/ACETAMINOPHEN 5mg/325mg TAB PO PRN (21:35)
[2022-06-03] MEDS: LANTUS PER UNIT CHARGE SQ SCH (21:35)
[2022-06-03] MEDS: LATANOPROST 0.005% OP SOLN 2.5 ML BTL OP SCH (21:36)
[2022-06-03] MEDS: rOPINIRole HCL 0.25 MG TABLET PO SCH (21:40)
[2022-06-04] MEDS: LEVOTHYROXINE SODIUM 150 MCG TABLET PO SCH (05:39)
[2022-06-04] MEDS ORDERED: EPOETIN ALFA 10,000 UNITS/ML VIAL IV ONE (07:00)
[2022-06-04] MEDS ORDERED: SODIUM CHLORIDE 0.9% 1000ML 1,000 ML IV PRN (07:00)
[2022-06-04] MEDS ORDERED: HEPARIN SOD (PORCINE) 1000 UNIT/ML IV ONE (07:00)
[2022-06-04] MEDS: MIDODRINE HCL 10 MG TAB PO SCH ×3 (07:30→17:45)
[2022-06-04] MEDS: oxyCODONE/ACETAMINOPHEN 5mg/325mg TAB PO PRN ×2 (07:36→15:27)
[2022-06-04] MEDS: METOPROLOL SUCC 25MG EXT REL TAB PO SCH (08:09)
[2022-06-04] MEDS: GABAPENTIN 100 MG CAP PO SCH ×2 (08:12→22:57)
[2022-06-04] MEDS: ADVANCED PROBIOTIC 1250 MG CAPSULE PO SCH (08:12)
[2022-06-04] MEDS: BRIMONIDINE TARTRATE 0.2% 5ML OP SCH ×2 (08:13→21:00)
[2022-06-04] MEDS: PANTOprazole 40 MG TAB PO SCH (08:13)
[2022-06-04] MEDS: AMIODARONE 200 MG TAB PO SCH (08:13)
[2022-06-04 08:22] LABS: Hematocrit (blood only) 34.3 % (34.1-44.9); Hemoglobin 10.5 g/dl (12.0-16.0); Mean Corpuscular Hemoglobin 30.4 pg (25.0-34.0); Mean Corpuscular Hgb Conc 30.6 g/dL (32.0-36.0); Mean Corpuscular Volume 99.4 fL (80.0-100.0); Mean Platelet Volume 11.3 fL (9.4-12.3); Nucleated RBC # (auto) 0.03 K/uL (0-0); Nucleated RBC % (auto) 0.3 %; Platelet Count 145 K/uL (130-400); RDW Coefficient of Variation 23.4 % (11.5-14.5); RDW Standard Deviation 82.5 fL (36.4-46.3); Red Blood Count 3.45 M/uL (3.93-5.22); White Blood Count 9.83 K/ul (4.8-10.8)
[2022-06-04] MEDS: INSULIN ASPART PER UNIT SC SCH ×4 (08:25→21:00)
[2022-06-04 08:27] LABS: INR 3.2 (0.9-1.1); Prothrombin Time 32.1 Seconds (9.0-12.0)
--- NOTE | 2022-06-04 08:32 | Surgery Progress Note ---
Date of Service June 04, 2022 Assessment & Plan (1) Ulcer of sacral region, stage 4: Plan: We will continue with VAC system normal sacral decubiti We will try to avoid any further surgical debridement may try Santyl prior to doing that if it needs to be debrided Admission and Anticipated Discharge Date Admission Date: May 14, 2022 Subjective She was wondering what the next move is for her care She lives pretty much [place] to [facility] but they do not have dialysis available She does not want to go to [facility] she had a very bad experience there Other that no major issues she is tolerating a diet some discomfort when they change the VAC system Physical Exam Physical Exam: Alert coherent eating her breakfast without any issues VAC system is intact Results & Data ([facility]) Vital Signs (Past 12 Hours) Vital Signs Temp Pulse Pulse Resp BP Pulse Ox O2 Del Method 06/04/22 07:23 36.5 C 82 18 96/62 L 99 06/04/22 03:05 37.0 C 80 16 91/53 L 97 Nasal Cannula 06/03/22 23:34 Nasal Cannula 06/03/22 23:00 84 06/03/22 22:56 36.6 C 78 18 101/62 99 Nasal Cannula O2 Flow Rate 06/04/22 07:23 2 06/04/22 03:05 2 06/03/22 23:34 2 06/03/22 23:00 06/03/22 22:56 2 PG Care Time/CCT Total # of Minutes Spent Total Time Spent with Patient: Total time spent is greater than 50% in coordination of care (as documented) at patient's floor/unit and/or counseling patient: Coding Level of Care Code None Diagnoses Ulcer of sacral region, stage 4 L98.429
[2022-06-04] MEDS: DAPTOmycin 800 MG in SYRINGE 0 ML IV SCH (14:50)
--- NOTE | 2022-06-04 17:40 | Hospitalist Progress Note ---
Date of Service June 04, 2022 Assessment & Plan (1) Sepsis: Plan: Source likely stage IV sacral ulcer with likely underlying osteomyelitis Initially was on broad spectrum abx with intravenous cefepime, daptomycin and oral fluconazole S/P debridement of sacral ulcer with bone biopsy on 05/27/2022 Appreciate Surgery Help Appreciate ID recommendations Continue wound VAC Sacral Wound Grew: Enterococcus VRE Continue daptomycin Will likely need 4 weeks of antibiotic therapy. Continue current management Adjustment disorder with depressed mood Appreciate psychiatrist input and recommendation Vitamin B12, folate and TSH are normal stable (2) Anemia: Plan: Chronic anemia in the setting of ESRD and GI losses (reported but not observed) and phlebotomy Was reportedly getting ?EPO injections with HD per Patient - continue EPO per renal No signs of active bleeding Positive FOBT S/P PRBCs during HD Monitor CBC (3) Osteomyelitis: Plan: Patient with 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/unstageable Had surgical debridement at [facility] with bone culture/biopsy Was on daptomycin there with 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 General surgery recommend chemical debridement with santyl No biopsy has been performed (4) New onset atrial fibrillation: Plan: Continue amiodarone, metoprolol Appreciate cardiology input and recommendation IV heparin discontinued Coumadin on hold secondary to supratherapeutic INR Monitor INR (5) Ulcer of sacral region, stage 4: Plan: plan as above. (6) Radiation necrosis of skin and subcutaneous: Plan: - plan as above (7) Acute hyponatremia: Plan: - likely due to sepsis and decrease po intake Sodium level stable Monitor (8) End-stage renal disease (ESRD): Plan: Has been on HD for the past year, per patient Normal HD schedule MWF Continue hemodialysis as per Nephrology (9) Diabetes: Plan: Continue insulin per protocol (10) Hypothyroid: Plan: TSH 22, FT4 <0.25 unclear if patient taking medication appropriately TSH normalized with restarting levothyroxine (11) Thrombocytopenia: Plan: unclear chronicity likely consumption in sepsis, ESRD, chronic illness no signs of bleeding Monitor (12) Coagulopathy: Plan: Coumadin on hold Monitor INR: 9.6>3.2 Plan DVT px: INR supratherapeutic Code Status: DNI/DNR Admission and Anticipated Discharge Date Admission Date: May 14, 2022 Subjective Patient is seen and examined at bedside Examined while patient having hemodialysis today Updated patient's over the phone No new complaints Continues to have mild soreness of sacral wound Denies any chest pain, shortness of breath, dizziness, nausea, abdominal pain Review of Systems Review of Systems: All systems reviewed & are unremarkable except as noted in Subjective Physical Exam Physical Exam: Physical Exam: Vitals signs as noted above General Appearance:Obese, ill appearing Head: normocephalic, Atraumatic Eyes: normal inspection, EOMI Neck: supple, Trachea midline Respiratory/Chest: Decreased breath sounds, scattered crackles, No accessory muscle use Cardiovascular: S1, S2, No murmur Abdomen/GI:Soft, Non tender, +Colostomy, Bowel sounds present Extremities/Musculoskeletal:normal inspection, 1+ edema Neurologic/Psych:AAOX3, grossly no focal neurological deficits Skin: normal color, warm, +Sacral wound, Wound Vac Results & Data Results & Data ([facility]) Vital Signs (Past 12 Hours) Vital Signs Temp Pulse Pulse Pulse Resp BP BP 06/04/22 13:20 36.6 C 75 111/51 L 06/04/22 13:00 70 106/52 L 06/04/22 12:30 68 86/35 L 06/04/22 16:30 88 06/04/22 08:30 06/04/22 15:27 36.5 C 88 22 105/68 06/04/22 12:00 72 125/75 06/04/22 11:30 76 90/37 L 06/04/22 11:00 75 80/44 L 06/04/22 10:30 74 83/47 L 06/04/22 10:00 81 107/38 L 06/04/22 09:40 36.6 C 79 06/04/22 07:00 81 06/04/22 07:23 36.5 C 82 18 96/62 L Pulse Ox O2 Del Method O2 Flow Rate 06/04/22 13:20 06/04/22 13:00 06/04/22 12:30 06/04/22 16:30 06/04/22 08:30 Nasal Cannula 2 06/04/22 15:27 100 Nasal Cannula 2 06/04/22 12:00 06/04/22 11:30 06/04/22 11:00 06/04/22 10:30 06/04/22 10:00 06/04/22 09:40 06/04/22 07:00 06/04/22 07:23 99 2 Laboratory Results Short CBC 06/04/22 Range/Units 07:57 WBC 9.83 (4.8-10.8) K/ul Hgb 10.5 L (12.0-16.0) g/dl Hct 34.3 (34.1-44.9) % Plt Count 145 (130-400) K/uL (1) Osteomyelitis Osteomyelitis location: unspecified site Osteomyelitis type: unspecified type Qualified Code(s): M86.9 - Osteomyelitis, unspecified
[2022-06-04] MEDS: LATANOPROST 0.005% OP SOLN 2.5 ML BTL OP SCH (20:59)
[2022-06-04] MEDS: LANTUS PER UNIT CHARGE SQ SCH (22:13)
[2022-06-04] MEDS: rOPINIRole HCL 0.25 MG TABLET PO SCH (22:57)
[2022-06-05] MEDS: LEVOTHYROXINE SODIUM 150 MCG TABLET PO SCH (07:41)
[2022-06-05 07:55] LABS: Hematocrit (blood only) 32.9 % (34.1-44.9); Hemoglobin 9.9 g/dl (12.0-16.0); Mean Corpuscular Hemoglobin 29.9 pg (25.0-34.0); Mean Corpuscular Hgb Conc 30.1 g/dL (32.0-36.0); Mean Corpuscular Volume 99.4 fL (80.0-100.0); Mean Platelet Volume 11.4 fL (9.4-12.3); Platelet Count 134 K/uL (130-400); RDW Coefficient of Variation 23.4 % (11.5-14.5); RDW Standard Deviation 83.1 fL (36.4-46.3); Red Blood Count 3.31 M/uL (3.93-5.22); White Blood Count 7.95 K/ul (4.8-10.8)
[2022-06-05 08:07] LABS: INR 3.1 (0.9-1.1); Prothrombin Time 31.1 Seconds (9.0-12.0)
[2022-06-05 08:37] LABS: BUN Creatinine Ratio 7.7 (10-20); Calcium 8.3 mg/dl (8.5-10.1); Creatinine Clr Calc Pharmacy 22.2 ml/min; Est GFR (African American) 21.4 ml/min; Est GFR (Non-African American) 18.4 ml/min; Potassium 4.5 mmol/L (3.5-5.1)
[2022-06-05] MEDS: INSULIN ASPART PER UNIT SC SCH ×4 (09:02→21:30)
[2022-06-05] MEDS: MIDODRINE HCL 10 MG TAB PO SCH ×3 (09:12→17:18)
[2022-06-05] MEDS: AMIODARONE 200 MG TAB PO SCH (09:12)
[2022-06-05] MEDS: GABAPENTIN 100 MG CAP PO SCH ×2 (09:13→21:27)
[2022-06-05] MEDS: BRIMONIDINE TARTRATE 0.2% 5ML OP SCH ×2 (09:13→21:27)
[2022-06-05] MEDS: METOPROLOL SUCC 25MG EXT REL TAB PO SCH (09:14)
[2022-06-05] MEDS: PANTOprazole 40 MG TAB PO SCH (09:14)
[2022-06-05] MEDS: ADVANCED PROBIOTIC 1250 MG CAPSULE PO SCH (09:14)
--- NOTE | 2022-06-05 15:57 | Hospitalist Progress Note ---
Date of Service June 05, 2022 Assessment & Plan (1) Sepsis: Plan: Source likely stage IV sacral ulcer with likely underlying osteomyelitis Initially was on broad spectrum abx with intravenous cefepime, daptomycin and oral fluconazole S/P debridement of sacral ulcer with bone biopsy on 05/27/2022 Appreciate Surgery Help Appreciate ID recommendations Continue wound VAC Sacral Wound Grew: Enterococcus VRE Continue daptomycin Will likely need 4 weeks of antibiotic therapy. Difficult placement Case management ot help with discharge planning Adjustment disorder with depressed mood Appreciate psychiatrist input and recommendation Vitamin B12, folate and TSH are normal stable (2) Anemia: Plan: Chronic anemia in the setting of ESRD and GI losses (reported but not observed) and phlebotomy Was reportedly getting ?EPO injections with HD per Patient - continue EPO per renal No signs of active bleeding Positive FOBT S/P PRBCs during HD Monitor CBC (3) Osteomyelitis: Plan: Patient with 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/unstageable Had surgical debridement at [facility] with bone culture/biopsy Was on daptomycin there with 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 General surgery recommend chemical debridement with santyl No biopsy has been performed (4) New onset atrial fibrillation: Plan: Continue amiodarone, metoprolol Appreciate cardiology input and recommendation IV heparin discontinued Coumadin on hold secondary to supratherapeutic INR Monitor INR: 3.1 today (5) Ulcer of sacral region, stage 4: Plan: plan as above. (6) Radiation necrosis of skin and subcutaneous: Plan: - plan as above (7) Acute hyponatremia: Plan: - likely due to sepsis and decrease po intake Sodium level stable Monitor (8) End-stage renal disease (ESRD): Plan: Has been on HD for the past year, per patient Normal HD schedule MWF Continue hemodialysis as per Nephrology (9) Diabetes: Plan: Continue insulin per protocol (10) Hypothyroid: Plan: TSH 22, FT4 <0.25 unclear if patient taking medication appropriately TSH normalized with restarting levothyroxine (11) Thrombocytopenia: Plan: unclear chronicity likely consumption in sepsis, ESRD, chronic illness no signs of bleeding Monitor (12) Coagulopathy: Plan: Coumadin on hold Monitor INR: 9.6>3.1 No Obvious bleeding issues Plan DVT px: INR supratherapeutic Code Status: DNI/DNR Admission and Anticipated Discharge Date Admission Date: May 14, 2022 Subjective Patient is seen and examined at bedside Doing well today No new complaints Denies any significant pain at sacral wound site Denies any chest pain, shortness of breath, dizziness, nausea, abdominal pain Review of Systems Review of Systems: All systems reviewed & are unremarkable except as noted in Subjective Physical Exam Physical Exam: Physical Exam: Vitals signs as noted above General Appearance:Obese, ill appearing Head: normocephalic, Atraumatic Eyes: normal inspection, EOMI Neck: supple, Trachea midline Respiratory/Chest: Decreased breath sounds, scattered crackles, No accessory muscle use Cardiovascular: S1, S2, No murmur Abdomen/GI:Soft, Non tender, +Colostomy, Bowel sounds present Extremities/Musculoskeletal:normal inspection, 1+ edema Neurologic/Psych:AAOX3, grossly no focal neurological deficits Skin: normal color, warm, +Sacral wound, Wound Vac Results & Data Results & Data ([facility]) Vital Signs (Past 12 Hours) Vital Signs Temp Pulse Resp BP Pulse Ox O2 Del Method O2 Flow Rate 06/05/22 15:17 36.9 C 87 19 93/52 L 99 Nasal Cannula 2 06/05/22 08:00 Room Air 06/05/22 11:24 36.6 C 86 20 122/56 L 98 Nasal Cannula 2 06/05/22 07:31 36.6 C 86 22 99/47 L 97 Nasal Cannula 2 Laboratory Results Short CBC 06/05/22 Range/Units 07:29 WBC 7.95 (4.8-10.8) K/ul Hgb 9.9 L (12.0-16.0) g/dl Hct 32.9 L (34.1-44.9) % Plt Count 134 (130-400) K/uL BMP 06/05/22 07:29 Sodium 133 L Potassium 4.5 Chloride 98 Carbon Dioxide 31 BUN 20 Creatinine 2.59 H Glucose 141 H Calcium 8.3 L (1) Osteomyelitis Osteomyelitis location: unspecified site Osteomyelitis type: unspecified type Qualified Code(s): M86.9 - Osteomyelitis, unspecified
[2022-06-05] MEDS: LATANOPROST 0.005% OP SOLN 2.5 ML BTL OP SCH (21:27)
[2022-06-05] MEDS: rOPINIRole HCL 0.25 MG TABLET PO SCH (21:28)
[2022-06-05] MEDS: LANTUS PER UNIT CHARGE SQ SCH (21:53)
[2022-06-06] MEDS: LEVOTHYROXINE SODIUM 150 MCG TABLET PO SCH (06:12)
[2022-06-06 07:46] LABS: INR 2.5 (0.9-1.1); Prothrombin Time 25.2 Seconds (9.0-12.0)
[2022-06-06] MEDS: ADVANCED PROBIOTIC 1250 MG CAPSULE PO SCH (08:00)
[2022-06-06] MEDS: AMIODARONE 200 MG TAB PO SCH (08:00)
[2022-06-06] MEDS: PANTOprazole 40 MG TAB PO SCH (08:00)
[2022-06-06] MEDS: MIDODRINE HCL 10 MG TAB PO SCH ×3 (08:00→17:43)
[2022-06-06] MEDS: BRIMONIDINE TARTRATE 0.2% 5ML OP SCH ×2 (08:00→21:46)
[2022-06-06] MEDS: METOPROLOL SUCC 25MG EXT REL TAB PO SCH (08:00)
[2022-06-06] MEDS: GABAPENTIN 100 MG CAP PO SCH ×2 (08:00→21:46)
[2022-06-06] MEDS: INSULIN ASPART PER UNIT SC SCH ×5 (09:12→21:00)
[2022-06-06] MEDS: oxyCODONE/ACETAMINOPHEN 5mg/325mg TAB PO PRN (11:17)
--- NOTE | 2022-06-06 16:00 | Hospitalist Progress Note ---
Date of Service June 06, 2022 Assessment & Plan (1) Sepsis: Plan: Source likely stage IV sacral ulcer with likely underlying osteomyelitis Initially was on broad spectrum abx with intravenous cefepime, daptomycin and oral fluconazole S/P debridement of sacral ulcer with bone biopsy on 05/27/2022 Appreciate Surgery Help Appreciate ID recommendations Continue wound VAC Sacral Wound Grew: Enterococcus VRE Continue daptomycin Will likely need 4 weeks of antibiotic therapy. Difficult placement Case management to help with discharge planning Continue current management Adjustment disorder with depressed mood Appreciate psychiatrist input and recommendation Vitamin B12, folate and TSH are normal stable (2) Anemia: Plan: Chronic anemia in the setting of ESRD and GI losses (reported but not observed) and phlebotomy Was reportedly getting ?EPO injections with HD per Patient - continue EPO per renal No signs of active bleeding Positive FOBT S/P PRBCs during HD Monitor CBC (3) Osteomyelitis: Plan: Patient with 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/unstageable Had surgical debridement at [facility] with bone culture/biopsy Was on daptomycin there with 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 General surgery recommend chemical debridement with santyl No biopsy has been performed (4) New onset atrial fibrillation: Plan: Continue amiodarone, metoprolol Appreciate cardiology input and recommendation IV heparin discontinued Coumadin on hold secondary to supratherapeutic INR Monitor INR: 2.5 today Will give 2mg Coumadin today (5) Ulcer of sacral region, stage 4: Plan: plan as above. (6) Radiation necrosis of skin and subcutaneous: Plan: - plan as above (7) Acute hyponatremia: Plan: - likely due to sepsis and decrease po intake Sodium level stable Monitor (8) End-stage renal disease (ESRD): Plan: Has been on HD for the past year, per patient Normal HD schedule MWF Continue hemodialysis as per Nephrology (9) Diabetes: Plan: Continue insulin per protocol (10) Hypothyroid: Plan: TSH 22, FT4 <0.25 unclear if patient taking medication appropriately TSH normalized with restarting levothyroxine (11) Thrombocytopenia: Plan: unclear chronicity likely consumption in sepsis, ESRD, chronic illness no signs of bleeding Monitor (12) Coagulopathy: Plan: Monitor INR: 9.6>3.1>2.5 No Obvious bleeding issues Coumadin Resumed Plan DVT px: Coumadin Code Status: DNI/DNR Admission and Anticipated Discharge Date Admission Date: May 14, 2022 Subjective Patient is seen and examined at bedside Comfortably lying in bed during my encounter States having some pain at sacral wound site Denies any chest pain, shortness of breath, dizziness, nausea, abdominal pain Review of Systems Review of Systems: All systems reviewed & are unremarkable except as noted in Subjective Physical Exam Physical Exam: Physical Exam: Vitals signs as noted above General Appearance:Obese, ill appearing Head: normocephalic, Atraumatic Eyes: normal inspection, EOMI Neck: supple, Trachea midline Respiratory/Chest: Decreased breath sounds, CTA, No accessory muscle use Cardiovascular: S1, S2, No murmur Abdomen/GI:Soft, Non tender, +Colostomy, Bowel sounds present Extremities/Musculoskeletal:normal inspection, 1+ edema Neurologic/Psych:AAOX3, grossly no focal neurological deficits Skin: normal color, warm, +Sacral wound, Wound Vac Results & Data Results & Data ([facility]) Vital Signs (Past 12 Hours) Vital Signs Temp Pulse Pulse Resp BP Pulse Ox O2 Del Method 06/06/22 15:25 36.9 C 81 19 102/64 99 Nasal Cannula 06/06/22 07:20 Nasal Cannula 06/06/22 07:20 73 06/06/22 11:32 36.5 C 86 19 104/68 99 Nasal Cannula 06/06/22 07:21 36.6 C 109 H 19 98/61 L 97 Nasal Cannula 06/06/22 04:44 37.0 C 85 18 104/50 L 98 Nasal Cannula O2 Flow Rate 06/06/22 15:25 2 06/06/22 07:20 2 06/06/22 07:20 06/06/22 11:32 2 06/06/22 07:21 2 06/06/22 04:44 2 (1) Osteomyelitis Osteomyelitis location: unspecified site Osteomyelitis type: unspecified type Qualified Code(s): M86.9 - Osteomyelitis, unspecified
[2022-06-06] MEDS: WARFARIN SOD 2 MG TAB PO SCH (17:42)
[2022-06-06] MEDS ORDERED: LANTUS PER UNIT CHARGE SQ SCH (21:00)
[2022-06-06] MEDS: LATANOPROST 0.005% OP SOLN 2.5 ML BTL OP SCH (21:46)
[2022-06-06] MEDS: rOPINIRole HCL 0.25 MG TABLET PO SCH (21:47)
[2022-06-07] MEDS: LEVOTHYROXINE SODIUM 150 MCG TABLET PO SCH (05:31)
[2022-06-07 06:14] LABS: INR 2.7 (0.9-1.1); Prothrombin Time 27.2 Seconds (9.0-12.0)
[2022-06-07] MEDS ORDERED: SODIUM CHLORIDE 0.9% 1000ML 1,000 ML IV PRN (07:00)
[2022-06-07] MEDS ORDERED: EPOETIN ALFA 10,000 UNITS/ML VIAL IV SCH (07:00)
[2022-06-07] MEDS: ADVANCED PROBIOTIC 1250 MG CAPSULE PO SCH (08:24)
[2022-06-07] MEDS: AMIODARONE 200 MG TAB PO SCH (08:24)
[2022-06-07] MEDS: PANTOprazole 40 MG TAB PO SCH (08:24)
[2022-06-07] MEDS: GABAPENTIN 100 MG CAP PO SCH ×2 (08:24→20:52)
[2022-06-07] MEDS: MIDODRINE HCL 10 MG TAB PO SCH ×3 (08:24→17:12)
[2022-06-07] MEDS: METOPROLOL SUCC 25MG EXT REL TAB PO SCH (08:25)
[2022-06-07] MEDS: BRIMONIDINE TARTRATE 0.2% 5ML OP SCH ×2 (08:25→20:54)
[2022-06-07] MEDS: INSULIN ASPART PER UNIT SC SCH ×4 (08:27→20:55)
--- NOTE | 2022-06-07 08:31 | Surgery Progress Note ---
Date of Service June 07, 2022 Assessment & Plan (1) Decubitus ulcer of sacral area: Plan: having difficulty with placement continue wound vac no plans for further debridement, will sign off Admission and Anticipated Discharge Date Admission Date: May 14, 2022 Supervising Physician Co-Signing Physician Notes still no form for VAC system in chart Subjective having some pain, no other complaints, not OOB much Physical Exam Skin: wound vac in place Results & Data [facility]) Vital Signs (Past 12 Hours) Vital Signs Temp Pulse Pulse Resp BP Pulse Ox O2 Del Method 06/06/22 22:17 92 H 06/07/22 00:31 36.7 C 80 19 98/58 L 98 Nasal Cannula 06/06/22 22:00 Nasal Cannula O2 Flow Rate 06/06/22 22:17 06/07/22 00:31 2 06/06/22 22:00 2 PG Care Time/CCT Total # of Minutes Spent Total Time Spent with Patient: Total time spent is greater than 50% in coordination of care (as documented) at patient's floor/unit and/or counseling patient: Coding Level of Care Code None Diagnoses Decubitus ulcer of sacral area L89.154 Pressure injury stage: stage 4 (1) Decubitus ulcer of sacral area Pressure injury stage: stage 4 Qualified Code(s): L89.154 - Pressure ulcer of sacral region, stage 4
--- NOTE | 2022-06-07 09:17 | Pharmacy Report ---
Pharmacy Glycemic Short Note 2 - Date of Service June 07, 2022 - Glycemic Short BSG Results (Last 24 hours): 06/06/22 06/06/22 06/06/22 09:19 11:33 16:18 POC Glucose 139 H 197 H 166 H 06/06/22 06/07/22 20:42 07:31 POC Glucose 148 H 181 H OUTPATIENT ANTIDIABETIC REGIMEN: * Basaglar 42 units HS - reports following [facility] * Patient is also to be taking Trulicity and Novolog but does not. Has been discharged from the [facility] clinic due to failure to respond. * HbA1c = 5.9% (05/15/22) * However, this result is likely somewhat unreliable in ESRD patients d/t interactions between the A1c analyzing technique and high levels of urea in ESRD, reduced RBC life span, iron deficiency anemia, and EPO administration. HbA1c > 7.5% in ESRD patient may overestimate the extent of hyperglycemia in ESRD patients. ASSESSMENT: 06/07: * BSGs have been reasonable over past 72 hours, although episode of hypoglycemia noted yesterday AM (65 mg/dL) * Basal insulin reduced yesterday in response to low * Fasting BSG trending up today following reduced dose, will increase slightly this evening * Hemodialysis scheduled for today 06/03: * Received 33 units of insulin yesterday - 16 units basal + 17 units bolus. BSGs were elevated: 147-235-316 mg/dL. * Fasting BSG a little below goal today at 99 mg/dL. Will decrease basal this evening slightly. * No change to Novolog. Hyperglycemia last evening likely secondary to dialysis and no lunch coverage. 06/02: * Leny received 39 units of insulin yesterday - 16 units basal + 23 units bolus. BSGs controlled: [phone] mg/dL. * Fasting BSG acceptable at 147 mg/dL today. Dialysis today. * No changes to regimen necessary. 05/31: * Patient received 38 units of insulin yesterday - 16 units basal + 22 units bolus. BSGs controlled: 27-47-604-196 mg/dL. * Fasting BSG acceptable at 159 mg/dL this morning. No change to basal. * Will tighten carb ratio slightly this morning secondary to BSGs trending up throughout the day. 05/30: * Leny received a total of 54 units of insulin yesterday (20 units basal + 34 units bolus). BSGs were elevated: [phone] mg/dL. * According to RN, patient did supply the patient with some fast food from outside the hospital last evening. These uncovered carbs likely led to hyperglycemia at bedtime. * Fasting BSG was significantly lower than any of the previous days at 81 mg/dL. Unsure if this was due to basal increase yesterday or large Novolog doses stacking at bedtime and midnight. * Regardless, will decrease basal by 20% today. * No change to Novolog. PLAN FOR INPATIENT GLYCEMIC CONTROL: * Basal insulin * Lantus 14 units SC HS * Bolus insulin * NovoLog per scale ACHS * Goal Range: Low 110 mg/dL - High 140 mg/dL * Correction Factor: 20 mg/dL/unit * Nutritional / Prandial insulin per carb ratio of 1 unit per 6 grams CHO consumed
[2022-06-07 09:38] LABS: BUN Creatinine Ratio 9.2 (10-20); Calcium 8.5 mg/dl (8.5-10.1); Creatinine Clr Calc Pharmacy 15.7 ml/min; Est GFR (African American) 13.5 ml/min; Est GFR (Non-African American) 11.6 ml/min
[2022-06-07] MEDS: DAPTOmycin 550 MG in SYRINGE 0 ML IV SCH (13:39)
--- NOTE | 2022-06-07 14:53 | Palliative Care Progress Note ---
Date of Service June 07, 2022 Assessment & Plan (1) Palliative care encounter: Plan: I reviewed previous discussion about goals of care with Leny. She recalls previous conversation and asked me if I'm here to talk about doom and gloom. I assured her that I just want to make sure that we understand her wishes so that we know how to care for her if she is unable to speak for herself. She tells me that sometimes she thinks that she is dying but she hopes not. She expresses fear of dying. When I asked her to elaborate on that she tells me that she is afraid that she will fill up with fluid and suffocate. I discussed medications available to relieve any symptoms of air hunger, anxiety or pain that she may be feeling as she approaches her dying time. She tells me that she doesn't want to now because she wants to see her grandchildren again. She is DNR/DNI but she definitely wants to continue dialysis and would want treatment for infection or other potentially reversible conditions. I tried to call her at both numbers on the chart but no answer. Admission and Anticipated Discharge Date Admission Date: May 14, 2022 Subjective Sitting in bed, eating lunch. No complaints of pain or dyspnea. Per case management, Mr. Beck requested additional discussion about palliative care. Review of Systems Review of Systems: ESAS Pain 0/3 Dyspnea 0/3 Nausea 0/3 Anorexia 0/3 Anxiety 2/3 Physical Exam Constitutional: no acute distress ENMT: Mouth: oral mucous membranes not dry Respiratory: normal respiratory effort; no labored breathing Neurologic: awake; not confused Results & Data ([facility]) Vital Signs (Past 12 Hours) Vital Signs Temp Pulse Pulse Pulse Resp BP BP 06/07/22 12:30 80 101/47 L 06/07/22 12:00 83 102/53 L 06/07/22 13:01 98.1 F 80 103/57 L 06/07/22 13:44 97.9 F 82 16 113/75 06/07/22 11:30 77 105/48 L 06/07/22 11:00 79 85/44 L 06/07/22 10:30 72 103/76 06/07/22 10:00 82 97/39 L 06/07/22 09:30 92 H 104/46 L 06/07/22 09:19 65 106/52 L 06/07/22 08:00 06/07/22 08:00 78 06/07/22 09:09 97.7 F 92 H 06/07/22 08:37 97.9 F 98 H 18 112/72 Pulse Ox O2 Del Method O2 Flow Rate 06/07/22 12:30 06/07/22 12:00 06/07/22 13:01 06/07/22 13:44 100 Nasal Cannula 3 06/07/22 11:30 06/07/22 11:00 06/07/22 10:30 06/07/22 10:00 06/07/22 09:30 06/07/22 09:19 06/07/22 08:00 Nasal Cannula 2 06/07/22 08:00 06/07/22 09:09 06/07/22 08:37 96 Nasal Cannula 2 PG Care Time/CCT Total # of Minutes Spent Total Time Spent: 25 Total Time Spent with Patient: Total time spent is greater than 50% in coordination of care (as documented) at patient's floor/unit and/or counseling patient:goals of care, symptom management Coding Level of Care Code 58618 Subseq Hosp Care Lvl 2 Diagnoses Palliative care encounter Z51.5
[2022-06-07] MEDS: WARFARIN SOD 2 MG TAB PO SCH (15:50)
--- NOTE | 2022-06-07 16:32 | Hospitalist Progress Note ---
Date of Service June 07, 2022 Assessment & Plan (1) Sepsis: Plan: Source likely stage IV sacral ulcer with likely underlying osteomyelitis Initially was on broad spectrum abx with intravenous cefepime, daptomycin and oral fluconazole S/P debridement of sacral ulcer with bone biopsy on 05/27/2022 Appreciate Surgery Help Appreciate ID recommendations Continue wound VAC Sacral Wound Grew: Enterococcus VRE Continue daptomycin Will likely need 4 weeks of antibiotic therapy from date of debridement Difficult placement Case management to help with discharge planning Adjustment disorder with depressed mood Appreciate psychiatrist input and recommendation Vitamin B12, folate and TSH are normal stable (2) Anemia: Plan: Chronic anemia in the setting of ESRD and GI losses (reported but not observed) and phlebotomy Was reportedly getting ?EPO injections with HD per Patient - continue EPO per renal No signs of active bleeding Positive FOBT S/P PRBCs during HD Monitor CBC (3) Osteomyelitis: Plan: Patient with 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/unstageable Had surgical debridement at [facility] with bone culture/biopsy Was on daptomycin there with 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 General surgery recommend chemical debridement with santyl No biopsy has been performed (4) New onset atrial fibrillation: Plan: Continue amiodarone, metoprolol Appreciate cardiology input and recommendation IV heparin discontinued Coumadin on hold secondary to supratherapeutic INR Monitor INR: 2.7 today Continue 2mg Coumadin today (5) Ulcer of sacral region, stage 4: Plan: plan as above. (6) Radiation necrosis of skin and subcutaneous: Plan: - plan as above (7) Acute hyponatremia: Plan: - likely due to sepsis and decrease po intake Sodium level stable Monitor (8) End-stage renal disease (ESRD): Plan: Has been on HD for the past year, per patient Normal HD schedule MWF Continue hemodialysis as per Nephrology (9) Diabetes: Plan: Continue insulin per protocol (10) Hypothyroid: Plan: TSH 22, FT4 <0.25 unclear if patient taking medication appropriately TSH normalized with restarting levothyroxine (11) Thrombocytopenia: Plan: unclear chronicity likely consumption in sepsis, ESRD, chronic illness no signs of bleeding Monitor (12) Coagulopathy: Plan: Monitor INR: 9.6>3.1>2.7 No Obvious bleeding issues Coumadin Resumed Plan DVT px: Coumadin Code Status: DNI/DNR Admission and Anticipated Discharge Date Admission Date: May 14, 2022 Subjective Patient is seen and examined at bedside Had hemodialysis earlier today States feels congested and reports leg edema Sacral wound pain is controlled Denies any chest pain, shortness of breath, dizziness, nausea, abdominal pain Review of Systems Review of Systems: All systems reviewed & are unremarkable except as noted in Subjective Physical Exam Physical Exam: Physical Exam: Vitals signs as noted above General Appearance:Obese, ill appearing Head: normocephalic, Atraumatic Eyes: normal inspection, EOMI Neck: supple, Trachea midline Respiratory/Chest: Decreased breath sounds, CTA, No accessory muscle use Cardiovascular: S1, S2, No murmur Abdomen/GI:Soft, Non tender, +Colostomy, Bowel sounds present Extremities/Musculoskeletal:normal inspection, 1+ edema Neurologic/Psych:AAOX3, grossly no focal neurological deficits Skin: normal color, warm, +Sacral wound, Wound Vac Results & Data Results & Data ([facility]) Vital Signs (Past 12 Hours) Vital Signs Temp Pulse Pulse Pulse Resp BP BP 06/07/22 15:23 85 06/07/22 12:30 80 101/47 L 06/07/22 12:00 83 102/53 L 06/07/22 13:01 36.7 C 80 103/57 L 06/07/22 13:44 36.6 C 82 16 113/75 06/07/22 11:30 77 105/48 L 06/07/22 11:00 79 85/44 L 06/07/22 10:30 72 103/76 06/07/22 10:00 82 97/39 L 06/07/22 09:30 92 H 104/46 L 06/07/22 09:19 65 106/52 L 06/07/22 08:00 06/07/22 08:00 78 06/07/22 09:09 36.5 C 92 H 06/07/22 08:37 36.6 C 98 H 18 112/72 Pulse Ox O2 Del Method O2 Flow Rate 06/07/22 15:23 06/07/22 12:30 06/07/22 12:00 06/07/22 13:01 06/07/22 13:44 100 Nasal Cannula 3 06/07/22 11:30 06/07/22 11:00 06/07/22 10:30 06/07/22 10:00 06/07/22 09:30 06/07/22 09:19 06/07/22 08:00 Nasal Cannula 2 06/07/22 08:00 06/07/22 09:09 06/07/22 08:37 96 Nasal Cannula 2 Laboratory Results Short CBC 06/07/22 Range/Units 08:54 Hgb 9.6 L (12.0-16.0) g/dl BMP 06/07/22 08:54 Sodium 132 L Potassium 5.0 Chloride 100 Carbon Dioxide 27 BUN 35 H Creatinine 3.79 H Glucose 228 H Calcium 8.5 (1) Osteomyelitis Osteomyelitis location: unspecified site Osteomyelitis type: unspecified type Qualified Code(s): M86.9 - Osteomyelitis, unspecified
--- NOTE | 2022-06-07 20:38 | Nephrology Progress Note ---
Date of Service June 07, 2022 Assessment & Plan (1) End-stage renal disease (ESRD): Plan: ESRD MWF at [facility] via dialysis catheter historically tolerated 3L fluid removal today plan next HD on 06/09 or as needs dictate -monitor for need to adjust abtx dosing w/ HD schedule > for at least 4 wks since 05/27 debridement -cont aggressive epo w/ HD (2) Osteomyelitis: Plan: -S/p surgical debridement - Continue Daptomycin Admission and Anticipated Discharge Date Admission Date: May 14, 2022 Subjective pt tolerated 3L UF today at HD; c/o disliking food; no sob, no uncontrolled pain; tells me she is "terrible" b/c of food Review of Systems Review of Systems: All systems reviewed & are unremarkable except as noted in Subjective and Unobtainable due to cognitive status (ROS limited by this) Physical Exam Constitutional: well developed, well nourished, + ill appearing, + obese, + frail appearing and cooperative; no acute distress Eyes: EOM intact bilaterally ENMT: Ears: no external ear abnormality Nose: no external nose abnormality Mouth: + dry oral mucous membranes Neck: no nuchal rigidity Respiratory: normal respiratory effort (on 3L 02nc) and able to speak in complete sentences; no labored breathing, does not use accessory muscles, no cough and not tachypneic Auscultation: + diminished lung sounds Cardiovascular: Rate/Rhythm: regular rate, regular rhythm and + tachycardic Extremities: + edema (trace/dependent BLE) Gastrointestinal (Abdomen): Inspection/Auscultation: abdomen normal to inspection (w/ colostomy present) and normal bowel sounds Percussion/Palpation: abdomen soft; abdomen nontender Musculoskeletal: Extremities: + abnormal strength Skin: no rashes, warm and dry sacral ulcer not examined; vac in place Neurologic: rider, fluent speech Psychiatric: Orientation: oriented to person, oriented to place and cooperative Affect: euthymic affect and + anxious affect Insight: + limited insight Results & Data ([facility]) Vital Signs (Past 12 Hours) Vital Signs Temp Pulse Pulse Pulse Resp BP BP 06/07/22 19:49 36.9 C 87 18 105/66 06/07/22 15:23 85 06/07/22 12:30 80 101/47 L 06/07/22 12:00 83 102/53 L 06/07/22 13:01 36.7 C 80 103/57 L 06/07/22 13:44 36.6 C 82 16 113/75 06/07/22 11:30 77 105/48 L 06/07/22 11:00 79 85/44 L 06/07/22 10:30 72 103/76 06/07/22 10:00 82 97/39 L 06/07/22 09:30 92 H 104/46 L 06/07/22 09:19 65 106/52 L 06/07/22 09:09 36.5 C 92 H 06/07/22 08:37 36.6 C 98 H 18 112/72 Pulse Ox O2 Del Method O2 Flow Rate 06/07/22 19:49 92 Nasal Cannula 06/07/22 15:23 06/07/22 12:30 06/07/22 12:00 06/07/22 13:01 06/07/22 13:44 100 Nasal Cannula 3 06/07/22 11:30 06/07/22 11:00 06/07/22 10:30 06/07/22 10:00 06/07/22 09:30 06/07/22 09:19 06/07/22 09:09 06/07/22 08:37 96 Nasal Cannula 2 Laboratory Results 06/07/22 08:54 06/07/22 08:54 (1) Osteomyelitis Osteomyelitis location: unspecified site Osteomyelitis type: unspecified type Qualified Code(s): M86.9 - Osteomyelitis, unspecified
[2022-06-07] MEDS: rOPINIRole HCL 0.25 MG TABLET PO SCH (20:50)
[2022-06-07] MEDS: LATANOPROST 0.005% OP SOLN 2.5 ML BTL OP SCH (20:53)
[2022-06-07] MEDS ORDERED: LANTUS PER UNIT CHARGE SQ SCH (21:00)
[2022-06-08] MEDS: oxyCODONE/ACETAMINOPHEN 5mg/325mg TAB PO PRN ×2 (05:10→09:36)
[2022-06-08] MEDS: LEVOTHYROXINE SODIUM 150 MCG TABLET PO SCH (05:11)
[2022-06-08 07:41] LABS: Hematocrit (blood only) 30.3 % (34.1-44.9); Hemoglobin 9.2 g/dl (12.0-16.0); Mean Corpuscular Hemoglobin 29.9 pg (25.0-34.0); Mean Corpuscular Hgb Conc 30.4 g/dL (32.0-36.0); Mean Corpuscular Volume 98.4 fL (80.0-100.0); Mean Platelet Volume 10.9 fL (9.4-12.3); Platelet Count 220 K/uL (130-400); RDW Standard Deviation 77.9 fL (36.4-46.3); Red Blood Count 3.08 M/uL (3.93-5.22); White Blood Count 7.19 K/ul (4.8-10.8)
[2022-06-08] MEDS: INSULIN ASPART PER UNIT SC SCH ×4 (08:16→20:59)
[2022-06-08 08:17] LABS: INR 3.6 (0.9-1.1); Prothrombin Time 35.6 Seconds (9.0-12.0)
[2022-06-08] MEDS: MIDODRINE HCL 10 MG TAB PO SCH ×3 (08:20→17:13)
[2022-06-08 08:26] LABS: BUN Creatinine Ratio 7.3 (10-20); Calcium 8.3 mg/dl (8.5-10.1); Creatinine Clr Calc Pharmacy 19.3 ml/min; Est GFR (African American) 17.8 ml/min; Est GFR (Non-African American) 15.4 ml/min; Potassium 4.5 mmol/L (3.5-5.1)
[2022-06-08] MEDS: PANTOprazole 40 MG TAB PO SCH (09:03)
[2022-06-08] MEDS: AMIODARONE 200 MG TAB PO SCH (09:03)
[2022-06-08] MEDS: BRIMONIDINE TARTRATE 0.2% 5ML OP SCH ×2 (09:04→20:57)
[2022-06-08] MEDS: METOPROLOL SUCC 25MG EXT REL TAB PO SCH (09:04)
[2022-06-08] MEDS: GABAPENTIN 100 MG CAP PO SCH ×2 (09:04→20:58)
[2022-06-08] MEDS: ADVANCED PROBIOTIC 1250 MG CAPSULE PO SCH (09:05)
--- NOTE | 2022-06-08 15:27 | Hospitalist Progress Note ---
Date of Service June 08, 2022 Assessment & Plan (1) Sepsis: Plan: Source likely stage IV sacral ulcer with likely underlying osteomyelitis Initially was on broad spectrum abx with intravenous cefepime, daptomycin and oral fluconazole S/P debridement of sacral ulcer with bone biopsy on 05/27/2022 Appreciate Surgery Help Appreciate ID recommendations Continue wound VAC Sacral Wound Grew: Enterococcus VRE Continue daptomycin Will likely need 4 weeks of antibiotic therapy from date of debridement Difficult placement Case management to help with discharge planning Continue current management Adjustment disorder with depressed mood Appreciate psychiatrist input and recommendation Vitamin B12, folate and TSH are normal stable (2) Anemia: Plan: Chronic anemia in the setting of ESRD and GI losses (reported but not observed) and phlebotomy Was reportedly getting ?EPO injections with HD per Patient - continue EPO per renal No signs of active bleeding Positive FOBT S/P PRBCs during HD Monitor CBC (3) Osteomyelitis: Plan: Patient with 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/unstageable Had surgical debridement at [facility] with bone culture/biopsy Was on daptomycin there with 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 General surgery recommend chemical debridement with santyl No biopsy has been performed (4) New onset atrial fibrillation: Plan: Continue amiodarone, metoprolol Appreciate cardiology input and recommendation IV heparin discontinued Monitor INR: 3.6 today Hold Coumadin today (5) Ulcer of sacral region, stage 4: Plan: plan as above. (6) Radiation necrosis of skin and subcutaneous: Plan: - plan as above (7) Acute hyponatremia: Plan: - likely due to sepsis and decrease po intake Sodium level stable Monitor (8) End-stage renal disease (ESRD): Plan: Has been on HD for the past year, per patient Normal HD schedule MWF Continue hemodialysis as per Nephrology (9) Diabetes: Plan: Continue insulin per protocol (10) Hypothyroid: Plan: TSH 22, FT4 <0.25 unclear if patient taking medication appropriately TSH normalized with restarting levothyroxine (11) Thrombocytopenia: Plan: unclear chronicity likely consumption in sepsis, ESRD, chronic illness no signs of bleeding Monitor (12) Coagulopathy: Plan: Monitor INR: 9.6>3.1>2.7>3.6 No Obvious bleeding issues hold Coumadin today Plan DVT px: Supratherapeutic INR Code Status: DNI/DNR Admission and Anticipated Discharge Date Admission Date: May 14, 2022 Subjective Patient is seen and examined at bedside Had wound dressing changed today Sacral wound pain is controlled Denies any chest pain, shortness of breath, dizziness, nausea, abdominal pain INR 3.6 today, no bleeding issues No other complaints Review of Systems Review of Systems: All systems reviewed & are unremarkable except as noted in Subjective Physical Exam Physical Exam: Physical Exam: Vitals signs as noted above General Appearance:Obese, ill appearing Head: normocephalic, Atraumatic Eyes: normal inspection, EOMI Neck: supple, Trachea midline Respiratory/Chest: Decreased breath sounds, CTA, No accessory muscle use Cardiovascular: S1, S2, No murmur Abdomen/GI:Soft, Non tender, +Colostomy, Bowel sounds present Extremities/Musculoskeletal:normal inspection, 1+ edema Neurologic/Psych:AAOX3, grossly no focal neurological deficits Skin: normal color, warm, +Sacral wound, Wound Vac Results & Data Results & Data ([facility]) Vital Signs (Past 12 Hours) Vital Signs Temp Pulse Pulse Resp BP BP Pulse Ox 06/08/22 15:22 36.7 C 77 18 108/66 100 06/08/22 14:23 06/08/22 11:33 36.6 C 83 20 90/48 L 98 06/08/22 07:00 77 06/08/22 07:43 36.4 C L 85 18 101/63 95 06/08/22 03:39 36.4 C L 89 18 102/61 97 O2 Del Method O2 Flow Rate 06/08/22 15:22 Nasal Cannula 2 06/08/22 14:23 Room Air, Nasal Cannula 2 06/08/22 11:33 Nasal Cannula 2 06/08/22 07:00 06/08/22 07:43 Nasal Cannula 2 06/08/22 03:39 Nasal Cannula (1) Osteomyelitis Osteomyelitis location: unspecified site Osteomyelitis type: unspecified type Qualified Code(s): M86.9 - Osteomyelitis, unspecified
[2022-06-08] MEDS: LATANOPROST 0.005% OP SOLN 2.5 ML BTL OP SCH (20:57)
[2022-06-08] MEDS: rOPINIRole HCL 0.25 MG TABLET PO SCH (20:58)
[2022-06-08] MEDS ORDERED: LANTUS PER UNIT CHARGE SQ SCH (21:00)
[2022-06-09] MEDS: LEVOTHYROXINE SODIUM 150 MCG TABLET PO SCH (05:53)
[2022-06-09 07:34] LABS: INR 3.4 (0.9-1.1); Prothrombin Time 33.9 Seconds (9.0-12.0)
[2022-06-09] MEDS ORDERED: SODIUM CHLORIDE 0.9% 1000ML 1,000 ML IV PRN (07:58)
[2022-06-09] MEDS ORDERED: ALBUMIN 25% 12.5 GM/50 ML VIAL IV ONE (08:15)
[2022-06-09] MEDS ORDERED: HEPARIN SOD (PORCINE) 1000 UNIT/ML IV ONE (08:15)
[2022-06-09] MEDS: INSULIN ASPART PER UNIT SC SCH ×4 (08:23→20:40)
[2022-06-09] MEDS: BRIMONIDINE TARTRATE 0.2% 5ML OP SCH ×2 (08:56→20:38)
[2022-06-09] MEDS: METOPROLOL SUCC 25MG EXT REL TAB PO SCH (08:57)
[2022-06-09] MEDS ORDERED: EPOETIN ALFA 10,000 UNITS/ML VIAL IV SCH (09:00)
[2022-06-09] MEDS: oxyCODONE/ACETAMINOPHEN 5mg/325mg TAB PO PRN (10:45)
[2022-06-09] MEDS ORDERED: ALBUMIN HUMAN 25% 12.5 GM/50 ML VIAL IV ONE (11:28)
[2022-06-09] MEDS: MIDODRINE HCL 10 MG TAB PO SCH ×3 (11:43→17:38)
--- NOTE | 2022-06-09 11:53 | Hospitalist Progress Note ---
Date of Service June 09, 2022 Assessment & Plan (1) Sepsis: Plan: Sacral Wound Grew: Enterococcus VRE Source likely stage IV sacral ulcer with likely underlying osteomyelitis Initially was on broad spectrum abx with intravenous cefepime, daptomycin and oral fluconazole S/P debridement of sacral ulcer with bone biopsy on 05/27/2022 Evaluated by surgery and ID- recommendations noted S/p wound vac but worsening wound per WOCN and awaiting surgery reevaluation for need for additional debridement Continue daptomycin Will likely need 4 weeks of antibiotic therapy from date of debridement Difficult placement Case management to help with discharge planning Continue current management Adjustment disorder with depressed mood Appreciate psychiatrist input and recommendation Vitamin B12, folate and TSH are normal stable (2) Anemia: Plan: Chronic anemia in the setting of ESRD and GI losses (reported but not observed) and phlebotomy Was reportedly getting ?EPO injections with HD per Patient - continue EPO per renal No signs of active bleeding Positive FOBT S/P PRBCs during HD Monitor CBC (3) Osteomyelitis: Plan: Patient with 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/unstageable Had surgical debridement at [facility] with bone culture/biopsy Was on daptomycin there with 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 General surgery recommend chemical debridement with santyl No biopsy has been performed (4) New onset atrial fibrillation: Plan: Continue amiodarone, metoprolol Appreciate cardiology input and recommendation IV heparin discontinued Monitor INR: 3.4 today Hold Coumadin today (5) Ulcer of sacral region, stage 4: Plan: plan as above. (6) Radiation necrosis of skin and subcutaneous: Plan: - plan as above (7) Acute hyponatremia: Plan: - likely due to sepsis and decrease po intake Sodium level stable Monitor (8) End-stage renal disease (ESRD): Plan: Has been on HD for the past year, per patient Normal HD schedule MWF Continue hemodialysis as per Nephrology (9) Diabetes: Plan: Continue insulin per protocol (10) Hypothyroid: Plan: TSH 22, FT4 <0.25 unclear if patient taking medication appropriately TSH normalized with restarting levothyroxine (11) Thrombocytopenia: Plan: unclear chronicity likely consumption in sepsis, ESRD, chronic illness no signs of bleeding Monitor (12) Coagulopathy: Plan: Monitor INR: 9.6>3.1>2.7>3.6->3.4 No Obvious bleeding issues hold Coumadin today Plan DVT px:coumadin, Supratherapeutic INR Dispo- Pending surgery reevaluation. Will need IV ABx at discharge and placement. Code Status: DNI/DNR Admission and Anticipated Discharge Date Admission Date: May 14, 2022 Subjective Complaining of back pain and waiting for percocet. States she is worried about her breathing and feels little congested but breathing comfortably. She is worried about her wound. No other issues. Physical Exam Physical Exam: General: Sitting comfortably in bed, not in distress, on NC HEENT: EOMI, SHIRAZ, MMM Chest: Decreased breath sounds bilaterally, no accessory muscle use CVS: Regular rate and rhythm, normal heart sounds, no murmur Abdomen: Soft, non tender, not distended, Left sided colostomy with stool Neuro: Awake, alert, oriented, conversing well, non focal Extremities: No edema. Left groin wound noted- no purulence. Sacral wound noted, now off of wound vac Results & Data Results & Data ([facility]) Vital Signs (Past 12 Hours) Vital Signs Temp Pulse Pulse Resp BP BP Pulse Ox 06/09/22 07:00 71 06/09/22 08:00 36.5 C 80 18 90/50 L 99 06/09/22 03:00 36.4 C L 72 20 95/60 L 100 O2 Del Method O2 Flow Rate 06/09/22 07:00 06/09/22 08:00 Nasal Cannula 2 06/09/22 03:00 Medications Administered Current Inpatient Medications Amiodarone HCl (Amiodarone 200 Mg Tab) 200 mg PO DAILY ROSA M Stop: 06/26/22 08:59 Last Admin: 06/08/22 09:03 Dose: 200 mg Atorvastatin Calcium (Atorvastatin 40 Mg Tab) 40 mg PO QAM ROSA M Stop: 06/14/22 08:59 Last Admin: 05/20/22 08:01 Dose: 40 mg Brimonidine Tartrate (Brimonidine Tartrate 0.2% 5ml) 1 drops OP BID ROSA M Stop: 06/28/22 08:59 Last Admin: 06/09/22 08:56 Dose: 1 drops Collagenase (Collagenase Oint 30 Gm Tube) 1 appln EXT DAILY ROSA M Stop: 06/14/22 08:59 Last Admin: 05/19/22 07:35 Dose: Not Given Dextrose (Dextrose 50% 50 Ml Syringe) 25 - 50 ml IV UD PRN; Protocol PRN Reason: Hypoglycemia Protocol Stop: 06/13/22 18:24 Last Admin: 05/16/22 11:55 Dose: 50 ml Epoetin Felipe (Epoetin Felipe 10,000 Units/Ml Vial) 10,000 units IV TODAY@0900 ROSA M Stop: 06/09/22 16:00 Gabapentin (Gabapentin 100 Mg Cap) 100 mg PO QAM ROSA M Stop: 06/14/22 08:59 Last Admin: 06/08/22 09:04 Dose: 100 mg Gabapentin (Gabapentin 100 Mg Cap) 200 mg PO HS [facility] Stop: 06/18/22 20:59 Last Admin: 06/08/22 20:58 Dose: 200 mg Glucagon (Glucagon For Inj 1 Mg Vial) 1 mg SQ UD PRN; Protocol PRN Reason: Hypoglycemia Protocol Stop: 06/13/22 18:24 Glucose (Glucose 40% Gel 15 Gm Tube) 15 - 30 gm PO UD PRN; Protocol PRN Reason: Hypoglycemia Protocol Stop: 06/13/22 18:24 Glucose (Glucose 10 Tab/Tube) 4 - 8 tab PO UD PRN; Protocol PRN Reason: Hypoglycemia Treatment Stop: 06/13/22 18:24 Daptomycin 550 mg/ Syringe 11 mls @ 5.5 mls/min IV MoWe@1400 ROSA M; Protocol Stop: 07/05/22 13:59 Last Admin: 06/07/22 13:39 Dose: 5.5 mls/min Daptomycin 800 mg/ Syringe 16 mls @ 8 mls/min IV Fr@1400 ROSA M; Protocol Stop: 07/02/22 13:59 Last Admin: 06/04/22 14:50 Dose: 8 mls/min Sodium Chloride (Nss 1000ml) 1,000 mls @ 0 mls/hr IV .Q0M PRN PRN Reason: For Hemodialysis Use ONLY Stop: 06/09/22 13:57 Insulin Aspart (Insulin Aspart Per Unit) 0 units SC [facility]; Protocol Stop: 06/20/22 11:29 Last Admin: 06/09/22 08:23 Dose: 14 units Insulin Glargine (Lantus Per Unit Charge) 16 units SQ [facility]; Protocol Stop: 07/06/22 20:59 Last Admin: 06/08/22 21:00 Dose: Not Given Lactobacillus Acidophilus (Advanced Probiotic 1250 Mg Capsule) 2 cap PO DAILY [facility] Stop: 06/23/22 16:44 Last Admin: 06/08/22 09:05 Dose: 2 cap Latanoprost (Latanoprost 0.005% Op Soln 2.5 Ml Btl) 1 drops OP QPM [facility] Stop: 06/13/22 20:59 Last Admin: 06/08/22 20:57 Dose: 1 drops Levothyroxine Sodium (Levothyroxine Sodium 150 Mcg Tablet) 150 mcg PO DAILYBB [facility] Stop: 06/21/22 06:29 Last Admin: 06/09/22 05:53 Dose: 150 mcg Metoprolol Succinate (Metoprolol Succ 25mg Ext Rel Tab) 25 mg PO QAM [facility] Stop: 06/14/22 08:59 Last Admin: 06/09/22 08:57 Dose: Not Given Midodrine (Midodrine Hcl 10 Mg Tab) 10 mg PO TID@0800,1200,1700 [facility] Stop: 06/21/22 03:19 Last Admin: 06/09/22 11:44 Dose: 10 mg Miscellaneous (Carbohydrates For Hypoglycemia ) 15 - 30 gm PO UD PRN PRN Reason: Hypoglycemia Protocol Stop: 06/13/22 18:24 Last Admin: 06/06/22 07:20 Dose: 15 gm Miscellaneous (Daptomycin Post-Hd - Pending Order) 1 each N/A SuTuThSa@1800 [facility] Stop: 07/01/22 17:59 Last Admin: 06/03/22 22:43 Dose: Not Given Miscellaneous Information (Pharmacy Glycemic Mgmt Consult) 1 each N/A UD PRN PRN Reason: Consult Stop: 06/22/22 17:05 Nitroglycerin (Nitroglycerin Sl 0.4 Mg/Tab Tab) 0.4 mg SL PRN PRN PRN Reason: Chest Pain Stop: 06/17/22 18:44 Ondansetron HCl (Ondansetron Inj 2 Mg/Ml 2 Ml Vial) 4 mg IV Q6H PRN PRN Reason: Nausea Stop: 06/13/22 18:19 Last Admin: 05/31/22 06:16 Dose: 4 mg Oxycodone/Acetaminophen (Oxycodone/Acetaminophen 5mg/325mg Tab) 1 tab PO Q6RWA PRN PRN Reason: Pain Stop: 06/11/22 07:16 Last Admin: 06/09/22 10:45 Dose: 1 tab Pantoprazole Sodium (Pantoprazole 40 Mg Tab) 40 mg PO DAILY ROSA M Stop: 06/14/22 08:59 Last Admin: 06/08/22 09:03 Dose: 40 mg Polyethylene Glycol (Polyethylene (Miralax) 17 Gm Pack) 17 gm PO DAILY PRN PRN Reason: Constipation Stop: 06/28/22 16:06 Last Admin: 05/29/22 16:15 Dose: 17 gm Ropinirole HCl (Ropinirole Hcl 0.25 Mg Tablet) 0.25 mg PO HS ROSA M Stop: 06/17/22 20:59 Last Admin: 06/08/22 20:58 Dose: 0.25 mg Warfarin Sodium (Warfarin Sod 2 Mg Tab) 2 mg PO DAILY@1600 ROSA M Stop: 07/06/22 15:59 Last Admin: 06/07/22 15:50 Dose: 2 mg (1) Osteomyelitis Osteomyelitis location: unspecified site Osteomyelitis type: unspecified type Qualified Code(s): M86.9 - Osteomyelitis, unspecified
--- NOTE | 2022-06-09 17:29 | Nephrology Progress Note ---
Date of Service June 09, 2022 Assessment & Plan (1) End-stage renal disease (ESRD): Plan: ESRD MWF at [facility] via dialysis catheter historically tolerated 2.5L fluid removal today plan next HD on 06/11 or as needs dictate -monitor for need to adjust abtx dosing w/ HD schedule > for at least 4 wks since 05/27 debridement -cont aggressive epo w/ HD -time abtx to dialysis as needed (2) Osteomyelitis: Plan: -S/p surgical debridement - Continue Daptomycin Admission and Anticipated Discharge Date Admission Date: May 14, 2022 Subjective tolerated HD Today; no worsening sob or n/v, no cramp. Review of Systems Review of Systems: All systems reviewed & are unremarkable except as noted in Subjective Physical Exam Constitutional: well developed, well nourished, + obese, + frail appearing and cooperative; no acute distress Eyes: EOM intact bilaterally ENMT: Ears: no external ear abnormality Nose: no external nose abnormality Mouth: + dry oral mucous membranes Neck: no nuchal rigidity Respiratory: normal respiratory effort (on 2L 02nc) and able to speak in complete sentences; no labored breathing, does not use accessory muscles, no cough and not tachypneic Auscultation: + diminished lung sounds Cardiovascular: Rate/Rhythm: regular rate, regular rhythm and + tachycardic Extremities: + edema (trace/dependent BLE) Gastrointestinal (Abdomen): Inspection/Auscultation: abdomen normal to inspection (w/ colostomy present) and normal bowel sounds Percussion/Palpation: abdomen soft; abdomen nontender Musculoskeletal: Extremities: + abnormal strength Skin: no rashes, warm and dry Psychiatric: Orientation: oriented to person, oriented to place and cooperative Affect: euthymic affect and + anxious affect Insight: + limited insight Results & Data ([facility]) Vital Signs (Past 12 Hours) Vital Signs Temp Pulse Pulse Pulse Resp BP BP 06/09/22 15:45 36.5 C 79 107/63 06/09/22 15:00 78 89/50 L 06/09/22 15:38 06/09/22 14:30 75 99/54 L 06/09/22 14:00 76 120/57 L 06/09/22 13:30 73 99/54 L 06/09/22 13:00 76 106/57 L 06/09/22 12:30 81 80/44 L 06/09/22 12:00 77 110/55 L 06/09/22 11:48 36.7 C 79 06/09/22 07:00 71 06/09/22 08:00 36.5 C 80 18 90/50 L Pulse Ox O2 Del Method O2 Flow Rate 06/09/22 15:45 06/09/22 15:00 06/09/22 15:38 Nasal Cannula 2 06/09/22 14:30 06/09/22 14:00 06/09/22 13:30 06/09/22 13:00 06/09/22 12:30 06/09/22 12:00 06/09/22 11:48 06/09/22 07:00 06/09/22 08:00 99 Nasal Cannula 2 Laboratory Results 06/08/22 07:28 06/08/22 07:28 (1) Osteomyelitis Osteomyelitis location: unspecified site Osteomyelitis type: unspecified type Qualified Code(s): M86.9 - Osteomyelitis, unspecified
[2022-06-09] MEDS: NEPHROCAPS PO SCH ×2 (17:37→20:39)
[2022-06-09] MEDS: ADVANCED PROBIOTIC 1250 MG CAPSULE PO SCH (17:37)
[2022-06-09] MEDS: DAPTOmycin 550 MG in SYRINGE 0 ML IV SCH (17:37)
[2022-06-09] MEDS: PANTOprazole 40 MG TAB PO SCH (17:38)
[2022-06-09] MEDS: GABAPENTIN 100 MG CAP PO SCH ×2 (17:38→20:38)
[2022-06-09] MEDS: AMIODARONE 200 MG TAB PO SCH (18:08)
[2022-06-09] MEDS ORDERED: FLUTICASONE PROPIONATE NA SPR 16 GM BTL PRN (20:14)
[2022-06-09] MEDS: LATANOPROST 0.005% OP SOLN 2.5 ML BTL OP SCH (20:38)
[2022-06-09] MEDS: rOPINIRole HCL 0.25 MG TABLET PO SCH (20:38)
[2022-06-09] MEDS: diphenhydrAMINE Capsule 25 MG CAP PO PRN (20:39)
[2022-06-09] MEDS: LANTUS PER UNIT CHARGE SQ SCH (20:40)
[2022-06-10] MEDS: LEVOTHYROXINE SODIUM 150 MCG TABLET PO SCH (05:35)
[2022-06-10 06:30] LABS: Hematocrit (blood only) 29.2 % (34.1-44.9); Hemoglobin 8.8 g/dl (12.0-16.0); Mean Corpuscular Hemoglobin 30.1 pg (25.0-34.0); Mean Corpuscular Hgb Conc 30.1 g/dL (32.0-36.0); Mean Platelet Volume 10.7 fL (9.4-12.3); Platelet Count 256 K/uL (130-400); RDW Coefficient of Variation 21.5 % (11.5-14.5); RDW Standard Deviation 79.1 fL (36.4-46.3); Red Blood Count 2.92 M/uL (3.93-5.22); White Blood Count 6.68 K/ul (4.8-10.8)
[2022-06-10 06:39] LABS: INR 2.1 (0.9-1.1); Prothrombin Time 21.1 Seconds (9.0-12.0)
[2022-06-10 06:57] LABS: BUN Creatinine Ratio 6.8 (10-20); C Reactive Protein 12.07 mg/dl (0-0.5); Calcium 8.3 mg/dl (8.5-10.1); Creatinine Clr Calc Pharmacy 21.6 ml/min; Est GFR (African American) 20.8 ml/min; Est GFR (Non-African American) 17.9 ml/min
--- NOTE | 2022-06-10 07:20 | Surgery Progress Note ---
Date of Service June 10, 2022 Assessment & Plan (1) Ulcer of sacral region, stage 4: Plan: Discussion with the patient was had the ulceration that she has in the back that we debrided this recently we will try placing the VAC system monitor but event to the point that it was not very beneficial we tried using Santyl and that also was not beneficial and debridement looking at the ulceration patient has extensive necrosis beyond our initial line resection and deep into the crater is significant amount of what appears to be dirty fat with this in mind discussed with the patient to take her back to surgery and try to debride this again but I am fearful that this is going to be an ongoing process that she will never heal that area especially due to the fact that she has had a radiation in the past Try to speak with her Paul at [phone] no answer got her recorder and left note that we will try to debride the area again this morning All question answered Admission and Anticipated Discharge Date Admission Date: May 14, 2022 Subjective Patient without any real complaints this morning Physical Exam Physical Exam: Alert coherent Results & Data ([facility]) Vital Signs (Past 12 Hours) Vital Signs Temp Pulse Pulse Resp BP BP Pulse Ox 06/10/22 03:27 90/58 L 06/10/22 03:00 37.4 C 89 20 70/43 L 98 06/09/22 22:20 78 06/09/22 23:11 81/51 L 06/09/22 23:00 36.6 C 81 16 76/48 L 73/42 L 98 06/09/22 20:30 O2 Del Method O2 Flow Rate 06/10/22 03:27 06/10/22 03:00 Nasal Cannula 06/09/22 22:20 06/09/22 23:11 06/09/22 23:00 Nasal Cannula 06/09/22 20:30 Nasal Cannula 2 Laboratory Results INR noted PG Care Time/CCT Total # of Minutes Spent Total Time Spent with Patient: Total time spent is greater than 50% in coordination of care (as documented) at patient's floor/unit and/or counseling patient: Coding Level of Care Code None Diagnoses Ulcer of sacral region, stage 4 L98.429
[2022-06-10] MEDS: INSULIN ASPART PER UNIT SC SCH ×4 (07:41→21:44)
--- NOTE | 2022-06-10 07:56 | Anesthesiology Consultation ---
Date of Service June 10, 2022 Assessment & Plan (1) Encounter for pre-operative examination: Chart Review Chart Review: Acceptable Risk for Surgery (INR 2.1 this morning - will discuss with surgeon) History Surgery Operation Date: 05/18/22 07:15 Proposed Procedures p Debridement Sacral Ulcer Stage 4 - Shawn Baldwin MD, FACS Operation Date: 05/20/22 11:40 Proposed Procedures p Sacral Decubitus Debridement with Biopsy - Shawn Baldwin MD, FACS Operation Date: 05/27/22 12:45 Proposed Procedures p Debridement of Sacral Ulcer with Bone Biopsy - Shawn Baldwin MD, F ACS Operation Date: 06/10/22 09:25 Proposed Procedures p Debridement Sacral Ulcer - Shawn Baldwin MD, FACS Height/Weight Height: 5 ft 3 in Weight: 87.2 kg Allergies Allergy/AdvReac Type Severity Reaction Status Date / Time cephalexin Allergy Unknown HIVES Verified 05/26/22 11:35 fluorescein Allergy Unknown EYE Verified 02/15/22 11:16 SWELLING AND THROAT SWELLING lisinopril Allergy Unknown "CHOKING" Verified 02/15/22 11:16 meperidine Allergy Unknown NAUSEA Verified 02/15/22 11:16 Penicillins Allergy Unknown Rash Verified 05/14/22 15:16 Medications Home Medications Medication Instructions Recorded Confirmed Last Taken Daptomycin Iv 750 mg IV .Q FRI 05/14/22 05/14/22 Unknown atorvastatin 40 mg tablet 40 mg PO QAM 05/14/22 05/14/22 Unknown brimonidine 0.2 %-timolol 0.5 % 1 drp [facility] 05/14/22 05/14/22 Unknown eye drops daptomycin 500 mg intravenous 500 mg IV .ONCE A DAY ON MO05/14/22 05/14/22 Unknown solution fluconazole 200 mg tablet 200 mg PO QAM 05/14/22 05/14/22 Unknown furosemide 20 mg tablet (Lasix) 20 mg PO QAM 05/14/22 05/14/22 Unknown gabapentin 300 mg capsule 300 mg PO HS 05/14/22 05/14/22 Unknown hydroxyzine HCl 25 mg tablet 25 mg PO Q6 PRN Anxiety 05/14/22 05/14/22 Unknown insulin aspart U-100 100 unit/mL 0 unit subcut .PM MEAL 05/14/22 05/14/22 Unknown (3 mL) subcutaneous pen (Novolog Flexpen U-100 Insulin aspart) insulin glargine 100 unit/mL (3 40 unit subcut QAM 05/14/22 05/14/22 Unknown mL) subcutaneous pen (Basaglar KwikPen U-100 Insulin) latanoprost 0.005 % eye drops 1 drp OPB HS 05/14/22 05/14/22 Unknown levothyroxine 137 mcg tablet 137 mcg PO DAILY 05/14/22 05/14/22 Unknown loperamide 2 mg capsule 2 mg PO DIRECTED PRN Diarrhea 05/14/22 05/14/22 Unknown midodrine 5 mg tablet 5 mg PO TID 05/14/22 05/14/22 Unknown nitroglycerin 0.4 mg sublingual 0.4 mg sublingual DIRECTED PRN 05/14/22 05/14/22 Unknown tablet (Nitrostat) Chest Pain ondansetron HCl 4 mg tablet 4 mg PO DIRECTED PRN Nausea 05/14/22 05/14/22 Unknown oxycodone 5 mg/5 mL oral solution 2.5 mg PO DAILY PRN Severe Pain 05/14/2205/14 Unknown (Scale Score 7-10) pantoprazole 40 mg tablet,delayed 40 mg PO DAILY 05/14/22 05/14/22 Unknown release ropinirole 0.25 mg tablet 0.25 mg PO HS 05/14/22 05/14/22 Unknown sodium hypochlorite 0.25 % solution 1 applic topical DAILY 05/14/22 05/14/22 Unknown triamcinolone acetonide 0.1 % 1 applic topical DIRECTED 05/14/22 05/14/22 Unknown topical cream Active Medications Generic Name Dose Route Start Last Admin Trade Name Freq PRN Reason Stop Dose Admin Amiodarone HCl 200 mg 05/27/22 09:00 06/09/22 18:08 Amiodarone 200 Mg Tab PO 06/26/22 08:59 Not Given DAILY ROSA M Atorvastatin Calcium 40 mg 05/15/22 09:00 05/20/22 08:01 Atorvastatin 40 Mg Tab PO 06/14/22 08:59 40 mg QAM ROSA M Administration Brimonidine Tartrate 1 drops 05/29/22 09:00 06/09/22 20:38 Brimonidine Tartrate 0.2% 5ml OP 06/28/22 08:59 1 drops BID ROSA M Administration Collagenase 1 appln 05/15/22 09:00 05/19/22 07:35 Collagenase Oint 30 Gm Tube EXT 06/14/22 08:59 Not Given DAILY ROSA M Dextrose 25 - 50 ml 05/14/22 18:25 05/16/22 11:55 Dextrose 50% 50 Ml Syringe IV 06/13/22 18:24 50 ml UD PRN Administration Hypoglycemia Protocol Protocol Diphenhydramine HCl 25 mg 06/09/22 20:13 06/09/22 20:39 Diphenhydramine Capsule 25 Mg Cap PO 07/09/22 20:12 25 mg BID PRN Administration Allergy Symptoms Gabapentin 100 mg 05/15/22 09:00 06/09/22 17:38 Gabapentin 100 Mg Cap PO 06/14/22 08:59 100 mg QAM ROSA M Administration Gabapentin 200 mg 05/19/22 21:00 06/09/22 20:38 Gabapentin 100 Mg Cap PO 06/18/22 20:59 200 mg HS ROSA M Administration Daptomycin 550 mg/ Syringe 11 mls @ 5.5 mls/min 05/24/22 14:00 06/09/22 17:37 IV 07/05/22 13:59 5.5 mls/min MoWe@1400 ROSA M Administration Protocol Daptomycin 800 mg/ Syringe 16 mls @ 8 mls/min 05/21/22 14:00 06/04/22 14:50 IV 07/02/22 13:59 8 mls/min Fr@1400 ROSA M Administration Protocol Insulin Aspart 0 units 05/21/22 11:30 06/10/22 07:41 Insulin Aspart Per Unit SC 06/20/22 11:29 Not Given ACHS ROSA M Protocol Insulin Glargine 12 units 06/09/22 21:00 06/09/22 20:40 Lantus Per Unit Charge SQ 07/09/22 20:59 12 units HS ROSA M Administration Protocol Lactobacillus Acidophilus 2 cap 05/24/22 16:45 06/09/22 17:37 Advanced Probiotic 1250 Mg Capsule PO 06/23/22 16:44 2 cap DAILY ROSA M Administration Latanoprost 1 drops 05/14/22 21:00 06/09/22 20:38 Latanoprost 0.005% Op Soln 2.5 Ml Btl OP 06/13/22 20:59 1 drops QPM ROSA M Administration Levothyroxine Sodium 150 mcg 05/22/22 06:30 06/10/22 05:35 Levothyroxine Sodium 150 Mcg Tablet PO 06/21/22 06:29 150 mcg DAILYBB ROSA M Administration Metoprolol Succinate 25 mg 05/15/22 09:00 06/09/22 08:57 Metoprolol Succ 25mg Ext Rel Tab PO 06/14/22 08:59 Not Given QAM ROSA M Midodrine 10 mg 05/22/22 03:20 06/09/22 17:38 Midodrine Hcl 10 Mg Tab PO 06/21/22 03:19 10 mg TID@0800,1200,1700 ROSA M Administration Miscellaneous 15 - 30 gm 05/14/22 18:25 06/06/22 07:20 Carbohydrates For Hypoglycemia PO 06/13/22 18:24 15 gm UD PRN Administration Hypoglycemia Protocol Miscellaneous 1 each 06/01/22 18:00 06/03/22 22:43 Daptomycin Post-Hd - Pending Order N/A 07/01/22 17:59 Not Given [id number]@1800 ROSA M Ondansetron HCl 4 mg 05/14/22 18:20 05/31/22 06:16 Ondansetron Inj 2 Mg/Ml 2 Ml Vial IV 06/13/22 18:19 4 mg Q6H PRN Administration Nausea Oxycodone/Acetaminophen 1 tab 05/28/22 07:17 06/09/22 10:45 Oxycodone/Acetaminophen 5mg/325mg Tab PO 06/11/22 07:16 1 tab [id number] PRN Administration Pain Pantoprazole Sodium 40 mg 05/15/22 09:00 06/09/22 17:38 Pantoprazole 40 Mg Tab PO 06/14/22 08:59 40 mg DAILY ROSA M Administration Polyethylene Glycol 17 gm 05/29/22 16:07 05/29/22 16:15 Polyethylene (Miralax) 17 Gm Pack PO 06/28/22 16:06 17 gm DAILY PRN Administration Constipation Ropinirole HCl 0.25 mg 05/18/22 21:00 06/09/22 20:38 Ropinirole Hcl 0.25 Mg Tablet PO 06/17/22 20:59 0.25 mg HS ROSA M Administration Vitamin B Complex/Folic Acid 1 cap 06/09/22 12:15 06/09/22 20:39 Nephrocaps PO 07/09/22 12:14 1 cap BID ROSA M Administration Warfarin Sodium 2 mg 06/06/22 16:00 06/07/22 15:50 Warfarin Sod 2 Mg Tab PO 07/06/22 15:59 2 mg DAILY@1600 ROSA M Administration NPO Date Last Intake of Fluids: 05/26/22 Time Last Intake of Fluids: 18:00 Date Last Intake of Solids: 05/26/22 Time Last Intake of Solids: 18:00 Past Medical History Medical History Accelerating angina Anemia Anemia due to stage 5 chronic kidney disease treated with erythropoietin Atherosclerosis of pra[place] band arteries of extremities with rest pain, left leg Cancer of anorectal junction Cat bite of left forearm Cervical cancer Chronic lower GI bleeding Chronic radiation dermatitis Chronic stable angina CKD (chronic kidney disease) stage 5, GFR less than 15 ml/min CKD, patient preferred treatment modality in-center hemodialysis Closed fracture of phalanx of left fifth toe Colonic polyp Coronary artery disease 50% lad stenosis, an 80% obtuse marginal stenosis, and a 50% PDA stenosis. It should be noted her PDA arose from her left circumflex. Demand ischemia of myocardium DM type 2 with diabetic peripheral neuropathy Encounter for colorectal cancer screening 02/10/07 ESRD (end stage renal disease) on dialysis Heart failure with preserved ejection fraction, borderline, class II History of treatment of incomplete miscarriage x3 History of hyperbaric oxygen therapy 07/2011, 11/2011, 60 treatments. History of rectal or anal cancer HTN (hypertension) Hx of barium enema Hx of mammogram Hyperlipidemia Hyperparathyroidism Hyponatremia Hypothyroidism Injection of surface of both eyes Injection of eye drug, Lucentis 0.3mg by Dr. Taveras Iron deficiency anemia due to chronic blood loss Major depressive disorder Melanoma of back Myocardial infarction Non-compliance Other pancytopenia PAD (peripheral artery disease) Proliferative diabetic retinopathy of both eyes without macular edema associated with diabetes mellitus due to underlying condition Radiation proctitis Retinal edema Retinal lesion S/P arteriogram of extremity Thrombocytopenia Type 2 diabetes mellitus Uncontrolled type 2 diabetes mellitus with retinopathy of left eye, with long- term current use of insulin Uterine cancer Vitreous hemorrhage of right eye Past Surgical History Surgical History H/O cataract removal with insertion of prosthetic lens H/O colonoscopy adhesions and radiation colitis precluded advancing scope through the sig moid. Exam discontinued. H/O eye surgery partial removal of eye fluid, bilateral H/O laparoscopy appendectomy History of breast surgery left breast, 1982 History of insertion of tunneled central venous catheter (CVC) with port History of revascularization procedure of lower extremity Hx of angioplasty Hx of biopsy benign right breast biopsy about 20 years ago. Hx of colonoscopy 08/31/2017, multiple colonic angioectasias from prior radiation/narrowed and scarred left colon from multiple prior surgeries/colonoscopy flexible proximal diagnositic performed by Chandler Gill. S/P debridement (05/27/22) Debridement of Sacral Ulcer with Bone Biopsy(Not Applicable) - Shawn Baldwin MD, FACS S/P laser trabeculoplasty of eye S/P tonsillectomy Status post total abdominal hysterectomy Social History Smoking Status: Never smoker Hx Alcohol Use: No Hx Substance Use: No Physical Exam Vital Signs Last Vital Signs Temp 37.1 C 06/10/22 07:34 Pulse 89 06/10/22 07:34 Resp 20 06/10/22 07:34 BP 103/56 L 06/10/22 07:34 Pulse Ox 98 06/10/22 07:34 O2 Del Method 06/10/22 07:34 O2 Flow Rate 2 06/10/22 07:34 FiO2 40 05/20/22 09:52 Testing Laboratory Results 06/10/22 06:07 06/10/22 06:07 PT 21.1 Seconds (9.0-12.0) H 06/10/22 06:07 INR 2.1 (0.9-1.1) H 06/10/22 06:07 APTT 61.9 Seconds (21.0-31.0) H* 06/03/22 06:54 Hemoglobin A1c 5.9 % (4.5-5.6) H 05/15/22 05:59 Blood Type A Positive 06/01/22 09:53 Antibody Screen NEGATIVE 06/01/22 09:53 05/27/22 15:31 Gram Stain - Final Sacrum Aerobic and Anaerobic Culture - Final Enterococcus faecium VRE 05/17/22 09:35 Aerobic Blood Culture - Final Blood No growth in Aerobic bottle after 5 days. Anaerobic Blood Culture - Final No growth in Anaerobic bottle after 5 days. 05/17/22 09:35 Aerobic Blood Culture - Final Blood No growth in Aerobic bottle after 5 days. Anaerobic Blood Culture - Final No growth in Anaerobic bottle after 5 days. 05/14/22 16:04 Aerobic Blood Culture - Final Blood No growth in Aerobic bottle after 5 days. Anaerobic Blood Culture - Final 05/14/22 16:03 Aerobic Blood Culture - Final Blood No growth in Aerobic bottle after 5 days. Anaerobic Blood Culture - Final 06/10/22 06/09/22 07:32 20:13 POC Glucose 150 H 196 H Electrocardiogram Date: 05/24/22 Findings: + NSR @ (75) and + poor R wave progression Echocardiogram Date: 05/17/22 EF: 35-40% Valvular Disease: + no significant valvular disease
[2022-06-10] MEDS: ADVANCED PROBIOTIC 1250 MG CAPSULE PO SCH (08:24)
[2022-06-10] MEDS: METOPROLOL SUCC 25MG EXT REL TAB PO SCH (08:24)
[2022-06-10] MEDS: MIDODRINE HCL 10 MG TAB PO SCH ×3 (08:24→16:25)
[2022-06-10] MEDS: NEPHROCAPS PO SCH ×2 (08:24→21:14)
[2022-06-10] MEDS: GABAPENTIN 100 MG CAP PO SCH ×2 (08:24→21:15)
[2022-06-10] MEDS: PANTOprazole 40 MG TAB PO SCH (08:24)
[2022-06-10] MEDS: AMIODARONE 200 MG TAB PO SCH (08:24)
[2022-06-10] MEDS: BRIMONIDINE TARTRATE 0.2% 5ML OP SCH ×2 (08:28→21:15)
[2022-06-10] MEDS ORDERED: MIDAZOLAM HCL 1 MG/ML 2ML VIAL ONE (08:45)
[2022-06-10] MEDS ORDERED: NEOSTIGMINE METHYLSULFATE 1 MG/ML 10ML VIAL ONE (08:45)
[2022-06-10] MEDS ORDERED: PROPOFOL IV EMULSION 10 MG/ML 20 ML VIAL IV ONE (08:45)
[2022-06-10] MEDS ORDERED: GLYCOPYRROLATE 0.2 MG/ML VIAL ONE (08:45)
[2022-06-10] MEDS ORDERED: DEXAMETHASONE SOD INJ 4 MG/ML VIAL ONE (08:45)
[2022-06-10] MEDS ORDERED: ONDANSETRON INJ 2 MG/ML 2 ML VIAL ONE (08:45)
[2022-06-10] MEDS ORDERED: fentaNYL citrate 100 MCG/2 ML VIAL ONE (08:46)
[2022-06-10] MEDS ORDERED: EPINEPHrine INJ 1 MG/ML AMP ONE (09:16)
[2022-06-10] MEDS ORDERED: BUPIVACAINE 0.5 % 5 MG/1 ML MPF 30ML VIAL ONE (09:16)
[2022-06-10] MEDS ORDERED: ATROPINE SULFATE 0.1 MG/ML 10ML SYR IV PRN (09:20)
[2022-06-10] MEDS ORDERED: ONDANSETRON INJ 2 MG/ML 2 ML VIAL IV PRN (09:20)
--- NOTE | 2022-06-10 10:13 | Pharmacy Report ---
Pharmacy Glycemic Short Note 2 - Date of Service June 10, 2022 - Glycemic Short BSG Results (Last 24 hours): 06/09/22 06/09/22 06/09/22 11:31 16:30 20:13 Glucose POC Glucose 195 H 133 H 196 H 06/10/22 06/10/22 06/10/22 06:07 07:32 09:11 Glucose 163 H POC Glucose 150 H 150 H OUTPATIENT ANTIDIABETIC REGIMEN: * Basaglar 42 units HS - reports following [facility] clinic * Patient is also to be taking Trulicity and Novolog but does not. Has been discharged from the [facility] clinic due to failure to respond. * HbA1c = 5.9% (05/15/22) * However, this result is likely somewhat unreliable in ESRD patients d/t interactions between the A1c analyzing technique and high levels of urea in ESRD, reduced RBC life span, iron deficiency anemia, and EPO administration. HbA1c > 7.5% in ESRD patient may overestimate the extent of hyperglycemia in ESRD patients. ASSESSMENT: 06/10: * Patient received total of 36 units of insulin yesterday; 12 units basal + 24 units bolus. * BSGs yesterday were [phone] mg/dl. Patient had refused basal insulin dose the day prior but BSGs were not too badly elevated. She had also got Hemo-dialysis yesterday. * Fasting BSG today was 150 mg/dl. Continued with basal insulin 12 units at HS. * Patient made NPO this morning for surgical debridement of sacral necrotic wound. * Continued Novolog parameters the same since post prandial BSGs have been fairly well controlled with current parameters. 06/07: * BSGs have been reasonable over past 72 hours, although episode of hypoglycemia noted yesterday AM (65 mg/dL) * Basal insulin reduced yesterday in response to low * Fasting BSG trending up today following reduced dose, will increase slightly this evening * Hemodialysis scheduled for today 06/03: * Received 33 units of insulin yesterday - 16 units basal + 17 units bolus. BSGs were elevated: 147-235-316 mg/dL. * Fasting BSG a little below goal today at 99 mg/dL. Will decrease basal this evening slightly. * No change to Novolog. Hyperglycemia last evening likely secondary to dialysis and no lunch coverage. 06/02: * Leny received 39 units of insulin yesterday - 16 units basal + 23 units bolus. BSGs controlled: [phone] mg/dL. * Fasting BSG acceptable at 147 mg/dL today. Dialysis today. * No changes to regimen necessary. 05/31: * Patient received 38 units of insulin yesterday - 16 units basal + 22 units bolus. BSGs controlled: 52-43-419-196 mg/dL. * Fasting BSG acceptable at 159 mg/dL this morning. No change to basal. * Will tighten carb ratio slightly this morning secondary to BSGs trending up throughout the day. 05/30: * Leny received a total of 54 units of insulin yesterday (20 units basal + 34 units bolus). BSGs were elevated: [phone] mg/dL. * According to RN, patient did supply the patient with some fast food from outside the hospital last evening. These uncovered carbs likely led to hyperglycemia at bedtime. * Fasting BSG was significantly lower than any of the previous days at 81 mg/dL. Unsure if this was due to basal increase yesterday or large Novolog doses stacking at bedtime and midnight. * Regardless, will decrease basal by 20% today. * No change to Novolog. PLAN FOR INPATIENT GLYCEMIC CONTROL: * Basal insulin * Lantus 12 units SC HS * Bolus insulin * NovoLog per scale ACHS * Goal Range: Low 110 mg/dL - High 140 mg/dL * Correction Factor: 20 mg/dL/unit * Nutritional / Prandial insulin per carb ratio of 1 unit per 6 grams CHO consumed
[2022-06-10] MEDS ORDERED: THROMBIN FOR SOLN 20000 UNIT KIT ONE (10:28)
[2022-06-10] MEDS ORDERED: ETOMIDATE 2 MG/ML 20 ML VIAL IV ONE (10:44)
--- NOTE | 2022-06-10 10:47 | Post Operative Brief Note ---
PG Immediate Post Op with CF Date of Surgery June 10, 2022 Pre & Post Diagnosis Operation Date: 05/18/22 07:15 <No data on this case meets the specified criteria> Operation Date: 05/20/22 11:40 <No data on this case meets the specified criteria> Operation Date: 05/27/22 12:45 Pre-Op Diagnosis: Ulcer of sacral region, stage 4, Osteomyolitis Post-Op Diagnosis: Ulcer of sacral region, stage 4, Osteomyolitis Operation Date: 06/10/22 09:25 Pre-Op Diagnosis: Ulcer of Sacral Region, Stage 4 [id number] Post-Op Diagnosis: Ulcer of Sacral Region, Stage 4 18x9 I identified the patient and participated in the time-out.: Yes Procedure Operation Date: 05/18/22 07:15 <No data on this case meets the specified criteria> Operation Date: 05/20/22 11:40 <No data on this case meets the specified criteria> Operation Date: 05/27/22 12:45 Actual Procedures p Debridement of Sacral Ulcer with Bone Biopsy(Not Applicable) - Shawn Baldwin MD, FACS Operation Date: 06/10/22 09:25 Actual Procedures p Debridement of Sacral Ulceration(Not Applicable) - Shawn Baldwin MD, FACS Surgeon Shawn Baldwin MD, FACS Peanut Picker fidelia so Estimated Blood Loss 75 Findings Consistent with Post-Op Diagnosis Specimens Specimen Description: A) Sacral Decubidi Debridement
--- NOTE | 2022-06-10 10:55 | Post Operative Brief Note ---
PG Immediate Post Op with CF Date of Surgery June 10, 2022 Pre & Post Diagnosis Operation Date: 05/18/22 07:15 <No data on this case meets the specified criteria> Operation Date: 05/20/22 11:40 <No data on this case meets the specified criteria> Operation Date: 05/27/22 12:45 Pre-Op Diagnosis: Ulcer of sacral region, stage 4, Osteomyolitis Post-Op Diagnosis: Ulcer of sacral region, stage 4, Osteomyolitis Operation Date: 06/10/22 09:25 Pre-Op Diagnosis: Ulcer of Sacral Region, Stage 4 [id number] Post-Op Diagnosis: Ulcer of Sacral Region, Stage 4 18x9 I identified the patient and participated in the time-out.: Yes Procedure Operation Date: 05/18/22 07:15 <No data on this case meets the specified criteria> Operation Date: 05/20/22 11:40 <No data on this case meets the specified criteria> Operation Date: 05/27/22 12:45 Actual Procedures p Debridement of Sacral Ulcer with Bone Biopsy(Not Applicable) - Shawn Baldwin MD, FACS Client Support Analyst Fidelia CHENG Operation Date: 06/10/22 09:25 Actual Procedures p Debridement of Sacral Ulceration(Not Applicable) - Shawn Baldwin MD, FACS Client Support Analyst Chey Cheng Surgeon Shawn Baldwin MD, FACS Client Support Analyst fidelia so Estimated Blood Loss 75 Findings Consistent with Post-Op Diagnosis Specimens Specimen Description: A) Sacral Decubidi Debridement
--- NOTE | 2022-06-10 11:06 | Operative Report ---
PG Post Operative Report Pre & Post Diagnosis Operation Date: 05/18/22 07:15 <No data on this case meets the specified criteria> Operation Date: 05/20/22 11:40 <No data on this case meets the specified criteria> Operation Date: 05/27/22 12:45 Pre-Op Diagnosis: Ulcer of sacral region, stage 4, Osteomyolitis Post-Op Diagnosis: Ulcer of sacral region, stage 4, Osteomyolitis Operation Date: 06/10/22 09:25 Pre-Op Diagnosis: Ulcer of Sacral Region, Stage 4 [id number] Post-Op Diagnosis: Ulcer of Sacral Region, Stage 4 18x9 I identified the patient and participated in the time-out.: Yes Procedure Operation Date: 05/18/22 07:15 <No data on this case meets the specified criteria> Operation Date: 05/20/22 11:40 <No data on this case meets the specified criteria> Operation Date: 05/27/22 12:45 Actual Procedures p Debridement of Sacral Ulcer with Bone Biopsy(Not Applicable) - Shawn Baldwin MD, FACS Operation Date: 06/10/22 09:25 Actual Procedures p Debridement of Sacral Ulceration(Not Applicable) - Shawn Baldwin MD, FACS Chief Deputy Chey chadwick The patient was brought into the operating theater general endotracheal anesthesia and she was placed on the operating table in prone position padding appropriately pillow underneath the legs dressing on the sacral area was removed the patient had extensive necrotic tissue very foul odorous that the area was prepped with Betadine solution properly draped a timeout was had patient identified The wound measured 10 cm x 13 cm x 5 cm extensive necrosis in the periwound extending from the edge of irregularly about 3 to 5 cm extensive necrosis down to the sacral area and both medial aspect of the gluteus muscle at this point using electrocautery we were able to circumferentially debrided all the necrotic skin down to the gluteus muscle fascia need to be taken bilaterally to we had excellent bleeding into the muscle fibers itself we controlled most of these bleeders with pressure or silk sutures 2-0 silk or 3-0 silk superiorly to the dissection on the sacrum we were onto the sacrum itself we freed some fibrous tissue that was necrotic in the area the inferior aspect of the sacrum we can easily get into the marrow itself with control the bleeding with first Surgicel and then used bone wax we circumferentially took our time went around to control all the bleeding once the specimen was removed a picture was taken on the back table with the use topical thrombin spray and a roll over the operative field once we felt that hemostasis was controlled we used 2 inch vaginal packing into the wound prior to doing that we took another picture of the wound that showed all viable tissue and the extent of our resection which we measured 18 cm x 15cm x 5 cm depth 4 x 4 was placed ABD was placed held in place with Elastoplast Procedure was tolerated well by the patient estimated blood loss 75 cc Addendum Chey chadwick was present throughout the procedure and helped with retraction exposure wound closure Due to the set up of this computer the operative date which was 06/10/2022 and immediate postop note and brings up Claudia Thomas physician physiotherapy assistant when she help me on 05/27/2022 we corrected that by addin Paulino CHADWICK that help me during this procedure Tried calling her Paul at [phone] no answer and no recording Surgeon Shawn Baldwin MD, FACS Chief Deputy fidelia thomas Estimated Blood Loss 75 Findings Consistent with Post-Op Diagnosis Extensive necrosis the periwound fatty tissue down to the gluteal fascia bilaterally and sacrum Specimens En bloc resection of necrotic tissue (picture taken) Indications Sacral decubiti with extensive necrosis unable to be controlled with the VAC system and unable to be chemically debrided Description of Procedure merda I attest to the content of the Intraoperative Record and any orders documented therein. Any exceptions are noted below.
[2022-06-10] MEDS: fentaNYL citrate 100 MCG/2 ML VIAL IV PRN ×4 (11:40→12:05)
--- NOTE | 2022-06-10 15:35 | Anesthesiology Progress Note ---
Date of Service June 10, 2022 Anesthesia Post Procedure Vital Signs Vital Signs: Temp Pulse Pulse Pulse Pulse Resp BP 06/10/22 15:00 36.8 C 82 14 06/10/22 15:00 85 06/10/22 14:20 84 16 06/10/22 13:50 85 14 06/10/22 13:20 85 16 06/10/22 13:05 85 16 06/10/22 12:53 36.5 C 85 19 06/10/22 12:10 87 20 06/10/22 11:50 94 H 21 06/10/22 11:40 95 H 22 06/10/22 11:30 98 H 22 06/10/22 12:00 36.1 C L 89 17 06/10/22 11:21 36 C L 99 H 21 06/10/22 09:05 36.8 C 91 H 20 06/10/22 07:34 37.1 C 89 20 06/10/22 07:00 91 H 06/10/22 03:27 06/10/22 03:00 37.4 C 89 20 06/09/22 22:20 78 06/09/22 23:11 06/09/22 23:00 36.6 C 81 16 76/48 L 06/09/22 20:30 06/09/22 19:00 37.0 C 97 H 97 H 18 06/09/22 17:32 36.7 C 90 20 06/09/22 15:45 36.5 C 79 06/09/22 15:38 BP Pulse Ox O2 Del Method O2 Flow Rate 06/10/22 15:00 96/45 L 100 06/10/22 15:00 06/10/22 14:20 94/59 L 98 06/10/22 13:50 94/44 L 97 06/10/22 13:20 90/56 L 99 06/10/22 13:05 91/52 L 96 06/10/22 12:53 96/60 L 96 Nasal Cannula 2 06/10/22 12:10 93/41 L 95 Nasal Cannula 2 06/10/22 11:50 98/51 L 95 Nasal Cannula 2 06/10/22 11:40 91/50 L 97 Nasal Cannula 2 06/10/22 11:30 112/57 L 96 Nasal Cannula 2 06/10/22 12:00 93/51 L 95 Nasal Cannula 2 06/10/22 11:21 88/57 L 97 Oxymask 6 06/10/22 09:05 96/51 L 97 Nasal Cannula 2 06/10/22 07:34 103/56 L 98 Nasal Cannula 2 06/10/22 07:00 06/10/22 03:27 90/58 L 06/10/22 03:00 70/43 L 98 Nasal Cannula 06/09/22 22:20 06/09/22 23:11 81/51 L 06/09/22 23:00 73/42 L 98 Nasal Cannula 06/09/22 20:30 Nasal Cannula 2 06/09/22 19:00 103/62 98 06/09/22 17:32 95/60 L 99 06/09/22 15:45 107/63 06/09/22 15:38 Nasal Cannula 2 Pain Intensity Buttock: Pain Intensity: 2 Left Knee: Pain Intensity: 10 Right Hip: Pain Intensity: 5 Left Buttock: Pain Intensity: 7 Transfer of Care Handoff Completed per policy Notes Mental Status: alert / awake / arousable Patient Amnestic to Procedure: Yes Nausea / Vomiting: adequately controlled Pain: adequately controlled Airway Patency, RR, SpO2: stable & adequate BP & HR: stable & adequate Hydration State: stable & adequate Anesthetic Complications: no major complications apparent
[2022-06-10] MEDS ORDERED: WARFARIN SOD 1 MG TAB PO SCH (16:00)
[2022-06-10] MEDS: oxyCODONE/ACETAMINOPHEN 5mg/325mg TAB PO PRN (16:25)
--- NOTE | 2022-06-10 16:38 | Hospitalist Progress Note ---
Date of Service June 10, 2022 Assessment & Plan (1) Sepsis: Plan: Sacral Wound Grew: Enterococcus VRE Source likely stage IV sacral ulcer with likely underlying osteomyelitis Initially was on broad spectrum abx with intravenous cefepime, daptomycin and oral fluconazole S/P debridement of sacral ulcer with bone biopsy on 05/27/2022 Evaluated by surgery and ID- recommendations noted S/p wound vac but worsening wound per WOCN and hence underwent repeat debridement with bone biopsy today 06/10- follow the clx and path Continue daptomycin Will likely need 4 weeks of antibiotic therapy from date of debridement Difficult placement Case management to help with discharge planning Continue current management Adjustment disorder with depressed mood Appreciate psychiatrist input and recommendation Vitamin B12, folate and TSH are normal stable (2) Anemia: Plan: Chronic anemia in the setting of ESRD and GI losses (reported but not observed) and phlebotomy Was reportedly getting ?EPO injections with HD per Patient - continue EPO per renal No signs of active bleeding Positive FOBT S/P PRBCs during HD Monitor CBC (3) Osteomyelitis: Plan: Patient with 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/unstageable Had surgical debridement at [facility] with bone culture/biopsy Was on daptomycin there with 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 General surgery recommend chemical debridement with santyl No biopsy has been performed (4) New onset atrial fibrillation: Plan: Continue amiodarone, metoprolol Appreciate cardiology input and recommendation IV heparin discontinued Monitor INR: 3.4 today Hold Coumadin today (5) Ulcer of sacral region, stage 4: Plan: plan as above. (6) Radiation necrosis of skin and subcutaneous: Plan: - plan as above (7) Acute hyponatremia: Plan: - likely due to sepsis and decrease po intake Sodium level stable Monitor (8) End-stage renal disease (ESRD): Plan: Has been on HD for the past year, per patient Normal HD schedule MWF Continue hemodialysis as per Nephrology (9) Diabetes: Plan: Continue insulin per protocol (10) Hypothyroid: Plan: TSH 22, FT4 <0.25 unclear if patient taking medication appropriately TSH normalized with restarting levothyroxine (11) Thrombocytopenia: Plan: unclear chronicity likely consumption in sepsis, ESRD, chronic illness no signs of bleeding Monitor (12) Coagulopathy: Plan: Monitor INR: 9.6>3.1>2.7>3.6->3.4->2.1 No obvious bleeding issues start on low dose coumadin today- recheck INR in am Plan DVT px:coumadin Dispo- S/p repeat debridement today, pathology bending. Will need IV ABx at discharge and placement. Code Status: DNI/DNR Admission and Anticipated Discharge Date Admission Date: May 14, 2022 Subjective States her throat is hurting after the surgery. Also has back pain. She did not like the food that was served today for dinner. Asking if she would ever walk again. No other issues. Physical Exam Physical Exam: General: Sitting comfortably in bed, not in distress, on NC HEENT: EOMI, SHIRAZ, MMM Chest: Decreased breath sounds bilaterally, no accessory muscle use CVS: Regular rate and rhythm, normal heart sounds, no murmur Abdomen: Soft, non tender, not distended, Left sided colostomy with stool Neuro: Awake, alert, oriented, conversing well, non focal Extremities: Some pedal edema. Left groin wound noted- no purulence. Sacral wound s/p repeat debridement today Results & Data Results & Data ([facility]) Vital Signs (Past 12 Hours) Vital Signs Temp Pulse Pulse Pulse Resp BP Pulse Ox 06/10/22 15:00 36.8 C 82 14 96/45 L 100 06/10/22 15:00 85 06/10/22 14:20 84 16 94/59 L 98 06/10/22 13:50 85 14 94/44 L 97 06/10/22 13:20 85 16 90/56 L 99 06/10/22 13:05 85 16 91/52 L 96 06/10/22 12:53 36.5 C 85 19 96/60 L 96 06/10/22 12:10 87 20 93/41 L 95 06/10/22 11:50 94 H 21 98/51 L 95 06/10/22 11:40 95 H 22 91/50 L 97 06/10/22 11:30 98 H 22 112/57 L 96 06/10/22 12:00 36.1 C L 89 17 93/51 L 95 06/10/22 11:21 36 C L 99 H 21 88/57 L 97 06/10/22 09:05 36.8 C 91 H 20 96/51 L 97 06/10/22 07:34 37.1 C 89 20 103/56 L 98 06/10/22 07:00 91 H O2 Del Method O2 Flow Rate 06/10/22 15:00 06/10/22 15:00 06/10/22 14:20 06/10/22 13:50 06/10/22 13:20 06/10/22 13:05 06/10/22 12:53 Nasal Cannula 2 06/10/22 12:10 Nasal Cannula 2 06/10/22 11:50 Nasal Cannula 2 06/10/22 11:40 Nasal Cannula 2 06/10/22 11:30 Nasal Cannula 2 06/10/22 12:00 Nasal Cannula 2 06/10/22 11:21 Oxymask 6 06/10/22 09:05 Nasal Cannula 2 06/10/22 07:34 Nasal Cannula 2 06/10/22 07:00 (1) Osteomyelitis Osteomyelitis location: unspecified site Osteomyelitis type: unspecified type Qualified Code(s): M86.9 - Osteomyelitis, unspecified
[2022-06-10] MEDS ORDERED: COUGH DROP (SUGAR FREE) LOZ 24 LOZ/1 BOX BUCCAL PRN (17:09)
[2022-06-10] MEDS: MoRPHine SULFATE 4 MG/ML 1 ML CARP\\VIAL IV PRN (19:52)
[2022-06-10] MEDS: rOPINIRole HCL 0.25 MG TABLET PO SCH (21:15)
[2022-06-10] MEDS: LATANOPROST 0.005% OP SOLN 2.5 ML BTL OP SCH (21:15)
[2022-06-10] MEDS: LANTUS PER UNIT CHARGE SQ SCH (21:44)
[2022-06-11] MEDS: LEVOTHYROXINE SODIUM 150 MCG TABLET PO SCH (06:03)
[2022-06-11 07:00] LABS: Hematocrit (blood only) 29.8 % (34.1-44.9); Mean Corpuscular Hemoglobin 30.5 pg (25.0-34.0); Mean Corpuscular Hgb Conc 30.2 g/dL (32.0-36.0); Mean Platelet Volume 10.3 fL (9.4-12.3); Platelet Count 310 K/uL (130-400); RDW Coefficient of Variation 21.2 % (11.5-14.5); RDW Standard Deviation 77.8 fL (36.4-46.3); Red Blood Count 2.95 M/uL (3.93-5.22); White Blood Count 12.04 K/ul (4.8-10.8)
[2022-06-11 07:29] LABS: BUN Creatinine Ratio 7.6 (10-20); Calcium 8.6 mg/dl (8.5-10.1); Creatinine Clr Calc Pharmacy 17.6 ml/min; Est GFR (African American) 16.1 ml/min; Est GFR (Non-African American) 13.9 ml/min; Potassium 4.2 mmol/L (3.5-5.1)
[2022-06-11 07:33] LABS: Prothrombin Time 20.2 Seconds (9.0-12.0)
[2022-06-11] MEDS: INSULIN ASPART PER UNIT SC SCH ×4 (08:04→22:08)
[2022-06-11] MEDS: GABAPENTIN 100 MG CAP PO SCH ×2 (08:13→22:09)
[2022-06-11] MEDS: NEPHROCAPS PO SCH ×2 (08:13→22:11)
[2022-06-11] MEDS: ADVANCED PROBIOTIC 1250 MG CAPSULE PO SCH (08:14)
[2022-06-11] MEDS: METOPROLOL SUCC 25MG EXT REL TAB PO SCH (08:14)
[2022-06-11] MEDS: PANTOprazole 40 MG TAB PO SCH (08:14)
[2022-06-11] MEDS: AMIODARONE 200 MG TAB PO SCH (08:14)
[2022-06-11] MEDS: MIDODRINE HCL 10 MG TAB PO SCH ×3 (08:15→16:40)
[2022-06-11] MEDS: BRIMONIDINE TARTRATE 0.2% 5ML OP SCH ×2 (08:15→22:47)
[2022-06-11] MEDS ORDERED: EPOETIN ALFA 20,000 UNITS/ML VIAL IV ONE (08:16)
[2022-06-11] MEDS ORDERED: SODIUM CHLORIDE 0.9% 1000ML 1,000 ML IV PRN (08:16)
[2022-06-11] MEDS: MoRPHine SULFATE 4 MG/ML 1 ML CARP\\VIAL IV PRN (08:58)
[2022-06-11 10:52] LABS: HBSAG NON-REACTIVE (NON-REACTIVE); Hepatitis B Surface Ab, Quant <5 mIU/mL (> OR = 10)
--- NOTE | 2022-06-11 11:24 | Surgery Progress Note ---
Date of Service June 11, 2022 Assessment & Plan (1) Ulcer of sacral region, stage 4: Plan: 06/11/22 POD#1 status post debridement sacral ulceration stage IV(second debridement) POD#14 status post debridement stage IV sacral ulceration (first debridement) We looked at the wound with the wound nurse debated the best way to try to dress this previous to this the patient would not and will wound VAC at this point seems like she be more amendable that this wound VAC would stay in place therefore we will proceed to place it 100 mmHg suction Unfortunately due to the previous radiation and the extent of this ulceration we are looking at the reality that this is not going to heal We will try to control the area minimize infection if we can for any more surgical debridement is out of the question Admission and Anticipated Discharge Date Admission Date: May 14, 2022 Subjective No major complaints this morning except some discomfort when we rotated her to the right Physical Exam Physical Exam: The Elastoplast and the wound dressing which was 2 inch vaginal packing was removed there was minimal bleeding appreciated however just within 24 hours in the left gluteal area that was beefy red yesterday is appearing to deteriorate again also the inferior aspect of the dissection and resection there is some skin necrosis again restarting there is no odor and the wound significant amount of drainage as expected on the dressing and the packing the periwound is erythematous few areas of necrosis Results & Data ([facility]) Vital Signs (Past 12 Hours) Vital Signs Temp Pulse Pulse Resp BP BP Pulse Ox 06/11/22 07:00 92 H 06/11/22 07:29 36.9 C 98 H 19 86/50 L 94 06/11/22 03:22 36.5 C 85 18 93/57 L 92 O2 Del Method O2 Flow Rate 06/11/22 07:00 06/11/22 07:29 Nasal Cannula 1 06/11/22 03:22 Nasal Cannula 2 PG Care Time/CCT Total # of Minutes Spent Total Time Spent with Patient: Total time spent is greater than 50% in coordination of care (as documented) at patient's floor/unit and/or counseling patient: Coding Level of Care Code None Diagnoses Ulcer of sacral region, stage 4 L98.429
--- NOTE | 2022-06-11 12:15 | Hospitalist Progress Note ---
Date of Service June 11, 2022 Assessment & Plan (1) Sepsis: Plan: Sacral Wound Grew: Enterococcus VRE Source likely stage IV sacral ulcer with likely underlying osteomyelitis Initially was on broad spectrum abx with intravenous cefepime, daptomycin and oral fluconazole S/P debridement of sacral ulcer with bone biopsy on 05/27/2022 and repeat debridement 06/10- Pathology pending Evaluated by surgery and ID- recommendations noted WOCN and surgery following- now started back on wound vac today Continue daptomycin Will likely need 4 weeks of antibiotic therapy from date of debridement Difficult placement Case management to help with discharge planning Continue current management Adjustment disorder with depressed mood Appreciate psychiatrist input and recommendation Vitamin B12, folate and TSH are normal stable (2) Anemia: Plan: Chronic anemia in the setting of ESRD and GI losses (reported but not observed) and phlebotomy Was reportedly getting ?EPO injections with HD per Patient - continue EPO per renal No signs of active bleeding Positive FOBT S/P PRBCs during HD Monitor CBC (3) Osteomyelitis: Plan: Patient with 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/unstageable Had surgical debridement at [facility] with bone culture/biopsy Was on daptomycin there with 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 General surgery recommend chemical debridement with santyl No biopsy has been performed (4) New onset atrial fibrillation: Plan: Continue amiodarone, metoprolol Appreciate cardiology input and recommendation s/p heparin drip- coumadin resumed 06/10- check INR daily for coumadin adjustment (5) Ulcer of sacral region, stage 4: Plan: plan as above. (6) Radiation necrosis of skin and subcutaneous: Plan: - plan as above (7) Acute hyponatremia: Plan: - likely due to sepsis and decrease po intake Sodium level stable Monitor (8) End-stage renal disease (ESRD): Plan: Has been on HD for the past year, per patient Normal HD schedule MWF Continue hemodialysis as per Nephrology (9) Diabetes: Plan: Continue insulin per protocol (10) Hypothyroid: Plan: TSH 22, FT4 <0.25 unclear if patient taking medication appropriately TSH normalized with restarting levothyroxine (11) Thrombocytopenia: Plan: unclear chronicity likely consumption in sepsis, ESRD, chronic illness no signs of bleeding Monitor (12) Coagulopathy: Plan: Monitor INR: 9.6>3.1>2.7>3.6->3.4->2.1->2 No obvious bleeding issues continue coumadin- recheck INR in am Plan DVT px:coumadin Dispo- S/p repeat debridement yesterday, pathology pending. Started on woundvac. Will need IV ABx at discharge and placement. Code Status: DNI/DNR Admission and Anticipated Discharge Date Admission Date: May 14, 2022 Subjective No new issues. Still has the pain and throat issues. No fever, chills, chest pain, shortness of breath, N/V. Physical Exam Physical Exam: General: Sitting comfortably in bed, not in distress, on NC HEENT: EOMI, SHIRAZ, MMM Chest: Decreased breath sounds bilaterally, no accessory muscle use CVS: Regular rate and rhythm, normal heart sounds, no murmur Abdomen: Soft, non tender, not distended, Left sided colostomy with stool Neuro: Awake, alert, oriented, conversing well, non focal Extremities: Some pedal edema. Left groin wound noted- no purulence. Sacral wound s/p repeat debridement yesterday Results & Data Results & Data ([facility]) Vital Signs (Past 12 Hours) Vital Signs Temp Pulse Pulse Resp BP BP Pulse Ox 06/11/22 11:17 36.7 C 93 H 19 92/54 L 97 06/11/22 07:00 92 H 06/11/22 07:29 36.9 C 98 H 19 86/50 L 94 06/11/22 03:22 36.5 C 85 18 93/57 L 92 O2 Del Method O2 Flow Rate 06/11/22 11:17 Nasal Cannula 2 06/11/22 07:00 06/11/22 07:29 Nasal Cannula 1 06/11/22 03:22 Nasal Cannula 2 Laboratory Results Short CBC 06/11/22 Range/Units 06:21 WBC 12.04 H (4.8-10.8) K/ul Hgb 9.0 L (12.0-16.0) g/dl Hct 29.8 L (34.1-44.9) % Plt Count 310 (130-400) K/uL BMP 06/11/22 06:21 Sodium 134 L Potassium 4.2 Chloride 99 Carbon Dioxide 27 BUN 25 H Creatinine 3.27 H D Glucose 147 H Calcium 8.6 (1) Osteomyelitis Osteomyelitis location: unspecified site Osteomyelitis type: unspecified type Qualified Code(s): M86.9 - Osteomyelitis, unspecified
[2022-06-11] MEDS: WARFARIN SOD 0.5 MG TAB PO SCH (16:40)
[2022-06-11] MEDS: DAPTOmycin 800 MG in SYRINGE 0 ML IV SCH (16:40)
--- NOTE | 2022-06-11 20:02 | Nephrology Progress Note ---
Date of Service June 11, 2022 Assessment & Plan (1) End-stage renal disease (ESRD): Plan: ESRD MWF at [facility] via dialysis catheter historically tolerated 0.5L fluid removal today eval for further HD tomorrow if BP better > she is regaining fluid -monitor for need to adjust abtx dosing w/ HD schedule > for at least 4 wks since 05/27 debridement -cont aggressive epo w/ HD -time abtx to dialysis as needed (2) Osteomyelitis: Plan: -S/p surgical debridement - Continue Daptomycin Admission and Anticipated Discharge Date Admission Date: May 14, 2022 Subjective completed HD but only 500 mL UF b/c of symptomatic hypotension ? role for morhpine in this; seen on late day rounds and no sob, no n/v; does c/o worse edema Review of Systems Review of Systems: All systems reviewed & are unremarkable except as noted in Subjective Physical Exam Constitutional: well developed, well nourished, + ill appearing, + obese, + frail appearing and cooperative; no acute distress Eyes: EOM intact bilaterally ENMT: Ears: no external ear abnormality Nose: no external nose abnormality Mouth: + dry oral mucous membranes Neck: no nuchal rigidity Respiratory: normal respiratory effort (on 2L 02nc) and able to speak in complete sentences; no labored breathing, does not use accessory muscles, no cough and not tachypneic Auscultation: + diminished lung sounds Cardiovascular: Rate/Rhythm: regular rate, regular rhythm and + tachycardic Extremities: + edema (1+ dependent BLE) Gastrointestinal (Abdomen): Inspection/Auscultation: abdomen normal to inspection (w/ colostomy present) and normal bowel sounds Percussion/Palpation: abdomen soft; abdomen nontender Musculoskeletal: Extremities: + abnormal strength Skin: no rashes, warm and dry Psychiatric: Orientation: oriented to person, oriented to place and cooperative Affect: euthymic affect and + anxious affect Insight: + limited insight Results & Data ([facility]) Vital Signs (Past 12 Hours) Vital Signs Temp Pulse Pulse Pulse Resp BP BP 06/11/22 19:29 36.4 C L 89 20 06/11/22 16:20 36.6 C 87 06/11/22 16:00 81 65/42 L 06/11/22 16:32 36.4 C L 95 H 20 06/11/22 15:30 88 106/42 L 08/19/22 15:00 68 71/40 L 06/11/22 14:30 92 H 78/41 L 06/11/22 14:00 92 H 166/55 H 06/11/22 13:30 69 124/43 L 06/11/22 13:15 93 H 95/50 L 06/11/22 13:10 36.6 C 93 H 06/11/22 11:17 36.7 C 93 H 19 92/54 L BP Pulse Ox O2 Del Method O2 Flow Rate 06/11/22 19:29 106/68 96 Nasal Cannula 2 06/11/22 16:20 92/49 L 06/11/22 16:00 06/11/22 16:32 104/66 96 Nasal Cannula 2 06/11/22 15:30 06/11/22 15:00 06/11/22 14:30 06/11/22 14:00 06/11/22 13:30 06/11/22 13:15 06/11/22 13:10 06/11/22 11:17 97 Nasal Cannula 2 Laboratory Results 06/11/22 06:21 06/11/22 06:21 (1) Osteomyelitis Osteomyelitis location: unspecified site Osteomyelitis type: unspecified type Qualified Code(s): M86.9 - Osteomyelitis, unspecified
[2022-06-11] MEDS: diphenhydrAMINE Capsule 25 MG CAP PO PRN (22:08)
[2022-06-11] MEDS: LANTUS PER UNIT CHARGE SQ SCH (22:08)
[2022-06-11] MEDS: rOPINIRole HCL 0.25 MG TABLET PO SCH (22:10)
[2022-06-11] MEDS: LATANOPROST 0.005% OP SOLN 2.5 ML BTL OP SCH (22:47)
[2022-06-12] MEDS: traMADol HCL 50 MG TABLET PO PRN ×2 (00:24→21:52)
[2022-06-12] MEDS: LEVOTHYROXINE SODIUM 150 MCG TABLET PO SCH (06:13)
[2022-06-12 07:36] LABS: Hematocrit (blood only) 28.3 % (34.1-44.9); Hemoglobin 8.4 g/dl (12.0-16.0); Mean Corpuscular Hemoglobin 30.3 pg (25.0-34.0); Mean Corpuscular Hgb Conc 29.7 g/dL (32.0-36.0); Mean Corpuscular Volume 102.2 fL (80.0-100.0); Mean Platelet Volume 10.8 fL (9.4-12.3); Platelet Count 265 K/uL (130-400); RDW Coefficient of Variation 20.9 % (11.5-14.5); Red Blood Count 2.77 M/uL (3.93-5.22)
[2022-06-12 07:43] LABS: INR 2.5 (0.9-1.1)
[2022-06-12] MEDS: INSULIN ASPART PER UNIT SC SCH ×4 (08:07→21:52)
[2022-06-12] MEDS ORDERED: ALBUMIN 25% 12.5 GM/50 ML VIAL IV ONE ×2 (08:18→09:18)
[2022-06-12] MEDS ORDERED: EPOETIN ALFA 20,000 UNITS/ML VIAL IV ONE (08:18)
[2022-06-12] MEDS ORDERED: SODIUM CHLORIDE 0.9% 1000ML 1,000 ML IV PRN (08:18)
[2022-06-12 08:20] LABS: BUN Creatinine Ratio 6.9 (10-20); Calcium 8.5 mg/dl (8.5-10.1); Creatinine Clr Calc Pharmacy 23.2 ml/min; Est GFR (African American) 22.5 ml/min; Est GFR (Non-African American) 19.4 ml/min; Magnesium 1.7 mg/dl (1.7-2.4)
[2022-06-12] MEDS: PANTOprazole 40 MG TAB PO SCH (08:50)
[2022-06-12] MEDS: ADVANCED PROBIOTIC 1250 MG CAPSULE PO SCH (08:50)
[2022-06-12] MEDS: NEPHROCAPS PO SCH ×2 (08:50→21:28)
[2022-06-12] MEDS: MIDODRINE HCL 10 MG TAB PO SCH ×3 (08:50→17:33)
[2022-06-12] MEDS: GABAPENTIN 100 MG CAP PO SCH ×2 (08:50→21:29)
[2022-06-12] MEDS: METOPROLOL SUCC 25MG EXT REL TAB PO SCH (08:51)
[2022-06-12] MEDS: MoRPHine SULFATE 4 MG/ML 1 ML CARP\\VIAL IV PRN (09:20)
[2022-06-12] MEDS: AMIODARONE 200 MG TAB PO SCH (09:25)
[2022-06-12] MEDS: BRIMONIDINE TARTRATE 0.2% 5ML OP SCH ×2 (09:25→21:28)
--- NOTE | 2022-06-12 12:43 | Hospitalist Progress Note ---
Date of Service June 12, 2022 Assessment & Plan (1) Sepsis: Plan: Sacral Wound Grew: Enterococcus VRE on 05/27/2022 Source likely stage IV sacral ulcer with likely underlying osteomyelitis Initially was on broad spectrum abx with intravenous cefepime, daptomycin and oral fluconazole S/P debridement of sacral ulcer with bone biopsy on 05/27/2022 and repeat debridement 06/10- Pathology pending Evaluated by surgery and ID- recommendations noted Plan: -Reach out to infectious disease regarding final duration of the antibiotics. Awaiting response. Continue on daptomycin, cefepime and oral fluconazole in the meantime. -Given her multiple comorbid condition and wound care needs; will evaluate her for LTAC placement. Discussed with case management director. Adjustment disorder with depressed mood Appreciate psychiatrist input and recommendation Vitamin B12, folate and TSH are normal stable (2) Anemia: Plan: Chronic anemia in the setting of ESRD and GI losses (reported but not observed) and phlebotomy Was reportedly getting ?EPO injections with HD per Patient - continue EPO per renal No signs of active bleeding Positive FOBT S/P PRBCs during HD Monitor CBC (3) Osteomyelitis: Plan: Patient with 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/unstageable Had surgical debridement at [facility] with bone culture/biopsy Was on daptomycin there with 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 General surgery recommend chemical debridement with santyl No biopsy has been performed (4) New onset atrial fibrillation: Plan: Continue amiodarone, metoprolol Appreciate cardiology input and recommendation s/p heparin drip- coumadin resumed 06/10- check INR daily for coumadin adjustment. - INR2.5 today. (5) Ulcer of sacral region, stage 4: Plan: plan as above. (6) Radiation necrosis of skin and subcutaneous: Plan: - plan as above (7) Acute hyponatremia: Plan: - likely due to sepsis and decrease po intake Sodium level stable Monitor (8) End-stage renal disease (ESRD): Plan: Has been on HD for the past year, per patient Normal HD schedule MWF Continue hemodialysis as per Nephrology (9) Diabetes: Plan: Continue insulin per protocol (10) Hypothyroid: Plan: TSH 22, FT4 <0.25 unclear if patient taking medication appropriately TSH normalized with restarting levothyroxine (11) Thrombocytopenia: Plan: unclear chronicity likely consumption in sepsis, ESRD, chronic illness no signs of bleeding Monitor (12) Coagulopathy: Plan: Monitor INR: 9.6>3.1>2.7>3.6->3.4->2.1->2 > 2.5 No obvious bleeding issues continue coumadin- recheck INR in am Plan DVT px:coumadin Dispo- S/p repeat debridement yesterday, pathology pending. Will need IV ABx at discharge and placement. Code Status: DNI/DNR Admission and Anticipated Discharge Date Admission Date: May 14, 2022 Subjective Patient is sitting up in the bed; not in any acute distress. Her wound VAC had to be taken off yesterday by wound care nurse. Patient continues to complain of pain in the sacral region. Patient is to undergo hemodialysis today. Review of Systems Review of Systems: All systems reviewed and are unremarkable except as noted below Physical Exam Physical Exam: General: Sitting comfortably in bed, not in distress, on NC HEENT: EOMI, SHIRAZ, MMM Chest: Decreased breath sounds bilaterally, no accessory muscle use CVS: Regular rate and rhythm, normal heart sounds, no murmur Abdomen: Soft, non tender, not distended, Left sided colostomy with stool Neuro: Awake, alert, oriented, conversing well, non focal Extremities: Some pedal edema. Left groin wound noted- no purulence. Sacral wound s/p repeat debridement yesterday Results & Data Results & Data ([facility]) Vital Signs (Past 12 Hours) Vital Signs Temp Pulse Pulse Pulse Resp BP BP 06/12/22 12:30 93 H 80/48 L 06/12/22 12:00 96 H 80/41 L 06/12/22 11:30 92 H 84/46 L 06/12/22 11:24 93 H 85/43 L 06/12/22 11:20 36.8 C 93 H 06/12/22 11:03 37.0 C 95 H 16 06/12/22 10:54 89 16 112/62 06/12/22 08:00 36.7 C 98 H 16 110/64 06/12/22 07:00 100 H 06/12/22 03:37 36.7 C 92 H 16 103/62 Pulse Ox O2 Del Method O2 Flow Rate 06/12/22 12:30 06/12/22 12:00 06/12/22 11:30 06/12/22 11:24 06/12/22 11:20 06/12/22 11:03 95 Nasal Cannula 2 06/12/22 10:54 97 Nasal Cannula 2 06/12/22 08:00 96 Nasal Cannula 2 06/12/22 07:00 06/12/22 03:37 98 Nasal Cannula 2 COVID-19 Results Results COVID-19 Adm Lab Results: RBC 2.77 M/uL (3.93-5.22) L 06/12/22 WBC 17.80 K/ul (4.8-10.8) H 06/12/22 Hgb 8.4 g/dl (12.0-16.0) L 06/12/22 Hct 28.3 % (34.1-44.9) L 06/12/22 Plt Count 265 K/uL (130-400) 06/12/22 Neutrophils (%) (Auto) 76.5 % 06/03/22 Lymphocytes (%) (Auto) 8.9 % 06/03/22 Monocytes # (Auto) 0.91 K/uL (0.24-0.82) H 06/03/22 Eosinophils # (Auto) 0.18 K/uL (0-0.50) 06/03/22 Immature Granulocyte % (Auto) 0.5 % 06/03/22 Neutrophils # (Auto) 6.64 K/uL (1.4-6.5) H 06/03/22 Lymphocytes # (Auto) 0.77 K/uL (1.2-3.4) L 06/03/22 Monocytes # (Auto) 0.91 K/uL (0.24-0.82) H 06/03/22 Eosinophils # (Auto) 0.18 K/uL (0-0.50) 06/03/22 Basophils # (Auto) 0.13 K/uL (0-0.2) 06/03/22 Immature Granulocyte # (Auto) 0.04 K/uL (0.00-0.02) H 06/03 Red Blood Cell Morphology Unremarkable 05/26/22 Polychromasia 1+ 05/28/22 Poikilocytosis Present 05/17/22 Basophilic Stippling 1+ 05/21/22 Echinocytes 2+ 05/17/22 Anisocytosis Present 06/03/22 Macrocytosis Present 06/03/22 Target Cells 1+ 06/03/22 Tear Drop Cells 1+ 05/14/22 Stomatocytes 1+ 05/27/22 Acanthocytes 1+ 05/17/22 Na 133 mmol/L (136-145) L 06/12/22 K 4.0 mmol/L (3.5-5.1) 06/12/22 Cl 99 mmol/L (98-107) 06/12/22 CO2 27 mmol/L (21-32) 06/12/22 Anion Gap 7 (3-11) 06/12/22 BUN 17 mg/dl (6-23) 06/12/22 Creatinine 2.48 mg/dl (0.6-1.2) H 06/12/22 BUN/Creatinine Ratio 6.9 (10-20) L 06/12/22 Glucose Level 275 mg/dl (70-99(Fasting)) H 06/12/22 Ca 8.5 mg/dl (8.5-10.1) 06/12/22 Phosphorus Level 4.1 mg/dl (2.5-4.9) 05/28/22 Total Bilirubin 0.8 mg/dl (0.2-1.0) 05/26/22 Direct Bilirubin 0.4 mg/dl (0-0.2) H 05/18/22 AST/SGOT 32 U/L (13-39) 05/26/22 ALT/SGPT 26 U/L (7-52) 05/26/22 Alkaline Phosphatase 369 U/L (34-104) H 05/26/22 Total Protein 5.4 gm/dl (6.0-8.3) L 05/26/22 Albumin 2.4 gm/dl (3.4-5.0) L 05/28/22 Globulin 3.1 gm/dl (2.5-4.0) 05/26/22 Albumin/Globulin Ratio 0.7 (0.9-2) L 05/26/22 Total CK 16 U/L (26-192) L 06/10/22 CRP 12.07 mg/dl (0-0.5) H 06/10/22 Procalcitonin 3.70 ng/ml (0-0.5) H 05/17/22 Fibrinogen 429 mg/dl (184-400) H 05/20/22 PTT 61.9 Seconds (21.0-31.0) H* 06/03/22 INR 2.5 (0.9-1.1) H 06/12/22 SARS-CoV-2, RNA, NAAT NEGATIVE (NEGATIVE) 05/14/22 Sample Site L Radial 05/20/22 POC pH 7.41 (7.35-7.45) 05/20/22 POC pCO2 42 mmHg (35-46) 05/20/22 POC pO2 75 mmHg (80-95) L 05/20/22 POC HCO3 27 rosy/L (19-24) H 05/20/22 POC Total CO2 28 mmol/L (24-31) 05/20/22 POC Base Excess 2.0 rosy/L (-9-1.8) H 05/20/22 Ox Delivery Device Cannula 05/20/22 Chest X-Ray 05/18/22 (1) Osteomyelitis Osteomyelitis location: unspecified site Osteomyelitis type: unspecified type Qualified Code(s): M86.9 - Osteomyelitis, unspecified
[2022-06-12] MEDS ORDERED: HYDROmorphone INJ 0.5 MG/0.5 ML SYR IV PRN (12:53)
[2022-06-12] MEDS ORDERED: DAPTOmycin 250 MG in SYRINGE 0 ML IV SCH (16:00)
--- NOTE | 2022-06-12 16:54 | Dialysis Progress Note ---
Date of Service June 12, 2022 Assessment & Plan (1) End-stage renal disease (ESRD): Plan: ESRD MWF at [facility] via dialysis catheter historically tolerated 2.5L fluid removal today eval for further HD tomorrow if BP better > she is regaining fluid -monitor for need to adjust abtx dosing w/ HD schedule > for at least 4 wks since 05/27 debridement -cont aggressive epo w/ HD -time abtx to dialysis as needed (2) Osteomyelitis: Plan: -S/p surgical debridement - Continue Daptomycin Admission and Anticipated Discharge Date Admission Date: May 14, 2022 Subjective more confused today; sbp remain 80-90s. pt c/o sacrabl pain and increasing swelling of extremities Review of Systems Review of Systems: All systems reviewed & are unremarkable except as noted in Subjective Physical Exam Constitutional: well developed, well nourished, + obese, + frail appearing and cooperative; no acute distress Eyes: EOM intact bilaterally ENMT: Ears: no external ear abnormality Nose: no external nose abnormality Mouth: + dry oral mucous membranes Neck: no nuchal rigidity Respiratory: normal respiratory effort (on 2L 02nc) and able to speak in complete sentences; no labored breathing, does not use accessory muscles, no cough and not tachypneic Auscultation: + diminished lung sounds Cardiovascular: Rate/Rhythm: regular rate, regular rhythm and + tachycardic Extremities: + edema (1+ dependent BLE) Gastrointestinal (Abdomen): Inspection/Auscultation: abdomen normal to inspection (w/ colostomy present) and normal bowel sounds Percussion/Palpati on: abdomen soft; abdomen nontender Musculoskeletal: Extremities: + abnormal strength Skin: no rashes, warm and dry Psychiatric: Orientation: oriented to person, oriented to place and cooperative Affect: euthymic affect and + anxious affect Insight: + limited insight Results & Data ([place]) Vital Signs (Past 12 Hours) Vital Signs Temp Pulse Pulse Pulse Resp BP BP 06/12/22 15:10 36.6 C 94 H 93/53 L 06/12/22 14:30 94 H 87/44 L 06/12/22 15:19 36.5 C 94 H 18 97/64 L 06/12/22 14:00 93 H 92/47 L 06/12/22 13:30 95 H 85/41 L 06/12/22 13:00 93 H 83/46 L 06/12/22 12:30 93 H 80/48 L 06/12/22 12:00 96 H 80/41 L 06/12/22 11:30 92 H 84/46 L 06/12/22 11:24 93 H 85/43 L 06/12/22 11:20 36.8 C 93 H 06/12/22 11:03 37.0 C 95 H 16 06/12/22 10:54 89 16 112/62 06/12/22 08:00 36.7 C 98 H 16 110/64 06/12/22 07:00 100 H Pulse Ox O2 Del Method O2 Flow Rate 06/12/22 15:10 06/12/22 14:30 06/12/22 15:19 98 Nasal Cannula 2 06/12/22 14:00 06/12/22 13:30 06/12/22 13:00 06/12/22 12:30 06/12/22 12:00 06/12/22 11:30 06/12/22 11:24 06/12/22 11:20 06/12/22 11:03 95 Nasal Cannula 2 06/12/22 10:54 97 Nasal Cannula 2 06/12/22 08:00 96 Nasal Cannula 2 06/12/22 07:00 Laboratory Results 06/12/22 06:27 06/12/22 06:27 (1) Osteomyelitis Osteomyelitis location: unspecified site Osteomyelitis type: unspecified type Qualified Code(s): M86.9 - Osteomyelitis, unspecified
[2022-06-12] MEDS: WARFARIN SOD 0.5 MG TAB PO SCH (17:32)
[2022-06-12] MEDS: HYDROmorphone INJ 0.5 MG/0.5 ML SYR IV PRN (18:19)
[2022-06-12] MEDS: LANTUS PER UNIT CHARGE SQ SCH (21:27)
[2022-06-12] MEDS: diphenhydrAMINE Capsule 25 MG CAP PO PRN (21:28)
[2022-06-12] MEDS: rOPINIRole HCL 0.25 MG TABLET PO SCH (21:28)
[2022-06-12] MEDS: LATANOPROST 0.005% OP SOLN 2.5 ML BTL OP SCH (21:29)
[2022-06-12] MEDS: FLUTICASONE PROPIONATE NA SPR 16 GM BTL SCH (22:25)
[2022-06-13] MEDS: LEVOTHYROXINE SODIUM 150 MCG TABLET PO SCH (06:35)
[2022-06-13] MEDS: INSULIN ASPART PER UNIT SC SCH ×4 (07:55→21:16)
[2022-06-13] MEDS: HYDROmorphone INJ 0.5 MG/0.5 ML SYR IV PRN ×2 (08:20→21:24)
[2022-06-13 08:24] LABS: INR 2.1 (0.9-1.1); Prothrombin Time 21.9 Seconds (9.0-12.0)
[2022-06-13] MEDS ORDERED: SODIUM CHLORIDE 0.9% 1000ML 1,000 ML IV PRN (08:29)
[2022-06-13] MEDS: BRIMONIDINE TARTRATE 0.2% 5ML OP SCH ×2 (08:46→20:56)
[2022-06-13] MEDS: FLUTICASONE PROPIONATE NA SPR 16 GM BTL SCH (08:46)
[2022-06-13] MEDS: METOPROLOL SUCC 25MG EXT REL TAB PO SCH (08:46)
[2022-06-13] MEDS: AMIODARONE 200 MG TAB PO SCH (08:46)
[2022-06-13] MEDS: MIDODRINE HCL 10 MG TAB PO SCH ×3 (08:46→17:26)
[2022-06-13] MEDS: GABAPENTIN 100 MG CAP PO SCH ×2 (08:47→20:56)
[2022-06-13] MEDS: PANTOprazole 40 MG TAB PO SCH (08:47)
[2022-06-13] MEDS: NEPHROCAPS PO SCH ×2 (08:47→20:55)
[2022-06-13] MEDS: ADVANCED PROBIOTIC 1250 MG CAPSULE PO SCH (08:47)
[2022-06-13] MEDS ORDERED: ALBUMIN 25% 12.5 GM/50 ML VIAL IV SCH ×2 (09:00→10:00)
--- NOTE | 2022-06-13 11:45 | Hospitalist Progress Note ---
Date of Service June 13, 2022 Assessment & Plan (1) Sepsis: Plan: Has undergone multiple debridement; last one in 06/10/2022. Had wound VAC placed but got dislodged. Currently on really dressing. Sacral Wound Grew: Enterococcus VRE on 05/27/2022 Source likely stage IV sacral ulcer with likely underlying osteomyelitis Initially was on broad spectrum abx with intravenous cefepime, daptomycin and oral fluconazole S/P debridement of sacral ulcer with bone biopsy on 05/27/2022 and repeat debridement 06/10- Pathology pending Evaluated by surgery and ID- recommendations noted Plan: -Reconsulted awaiting response. Continue on daptomycin day 21. -Given her multiple comorbid condition and wound care needs; will evaluate her for LTACH placement. Discussed with porter sample case. 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 - INR2.1 today. (5) Ulcer of sacral region, stage 4: Plan: plan as above. (6) Radiation necrosis of skin and subcutaneous: Plan: - plan as above (7) Acute hyponatremia: Plan: - likely due to sepsis and decrease po intake Sodium level stable Monitor (8) End-stage renal disease (ESRD): Plan: Has been on HD for the past year, per patient Normal HD schedule MWF Continue hemodialysis as per Nephrology (9) Diabetes: Plan: Continue insulin per protocol (10) Hypothyroid: Plan: TSH 22, FT4 <0.25 unclear if patient taking medication appropriately TSH normalized with restarting levothyroxine (11) Thrombocytopenia: Plan: unclear chronicity likely consumption in sepsis, ESRD, chronic illness no signs of bleeding Monitor (12) Coagulopathy: Plan: Monitor INR: 9.6>3.1>2.7>3.6->3.4->2.1->2 > 2.5> 2.1 No obvious bleeding issues continue coumadin- recheck INR in am Plan DVT px:coumadin Dispo- S/p repeat debridement yesterday, pathology pending. Will need IV ABx at discharge and placement. Code Status: DNI/DNR Admission and Anticipated Discharge Date Admission Date: May 14, 2022 Subjective Patient seen and examined at bedside. She is comfortably lying in the bed; complains of pain intermittently in the sacral region. Review of Systems Review of Systems: All systems reviewed & are unremarkable except as noted in Subjective Physical Exam Physical Exam: General: Sitting comfortably in bed, not in distress, on NC HEENT: EOMI, SHIRAZ, MMM Chest: Decreased breath sounds bilaterally, no accessory muscle use CVS: Regular rate and rhythm, normal heart sounds, no murmur Abdomen: Soft, non tender, not distended, Left sided colostomy with stool Neuro: Awake, alert, oriented, conversing well, non focal Extremities: Some pedal edema. Sacral wound s/p repeat debridement Results & Data Results & Data ([facility]) Vital Signs (Past 12 Hours) Vital Signs Temp Pulse Pulse Pulse Resp BP BP 06/13/22 11:30 102 H 88/50 L 06/13/22 11:00 100 H 91/51 L 06/13/22 10:50 100 H 94/48 L 06/13/22 10:45 37.2 C 102 H 06/13/22 07:30 37.6 C H 104 H 16 100/58 L 06/13/22 07:00 102 H 06/13/22 02:36 37.5 C 101 H 18 94/58 L Pulse Ox O2 Del Method O2 Flow Rate 06/13/22 11:30 06/13/22 11:00 06/13/22 10:50 06/13/22 10:45 06/13/22 07:30 97 Nasal Cannula 2 06/13/22 07:00 06/13/22 02:36 100 Nasal Cannula 2 COVID-19 Results Results COVID-19 Adm Lab Results: RBC 2.77 M/uL (3.93-5.22) L 06/12/22 WBC 17.80 K/ul (4.8-10.8) H 06/12/22 Hgb 8.4 g/dl (12.0-16.0) L 06/12/22 Hct 28.3 % (34.1-44.9) L 06/12/22 Plt Count 265 K/uL (130-400) 06/12/22 Neutrophils (%) (Auto) 76.5 % 06/03/22 Lymphocytes (%) (Auto) 8.9 % 06/03/22 Monocytes # (Auto) 0.91 K/uL (0.24-0.82) H 06/03/22 Eosinophils # (Auto) 0.18 K/uL (0-0.50) 06/03/22 Immature Granulocyte % (Auto) 0.5 % 06/03/22 Neutrophils # (Auto) 6.64 K/uL (1.4-6.5) H 06/03/22 Lymphocytes # (Auto) 0.77 K/uL (1.2-3.4) L 06/03/22 Monocytes # (Auto) 0.91 K/uL (0.24-0.82) H 06/03/22 Eosinophils # (Auto) 0.18 K/uL (0-0.50) 06/03/22 Basophils # (Auto) 0.13 K/uL (0-0.2) 06/03/22 Immature Granulocyte # (Auto) 0.04 K/uL (0.00-0.02) H 06/03 Red Blood Cell Morphology Unremarkable 05/26/22 Polychromasia 1+ 05/28/22 Poikilocytosis Present 05/17/22 Basophilic Stippling 1+ 05/21/22 Echinocytes 2+ 05/17/22 Anisocytosis Present 06/03/22 Macrocytosis Present 06/03/22 Target Cells 1+ 06/03/22 Tear Drop Cells 1+ 05/14/22 Stomatocytes 1+ 05/27/22 Acanthocytes 1+ 05/17/22 Na 133 mmol/L (136-145) L 06/12/22 K 4.0 mmol/L (3.5-5.1) 06/12/22 Cl 99 mmol/L (98-107) 06/12/22 CO2 27 mmol/L (21-32) 06/12/22 Anion Gap 7 (3-11) 06/12/22 BUN 17 mg/dl (6-23) 06/12/22 Creatinine 2.48 mg/dl (0.6-1.2) H 06/12/22 BUN/Creatinine Ratio 6.9 (10-20) L 06/12/22 Glucose Level 275 mg/dl (70-99(Fasting)) H 06/12/22 Ca 8.5 mg/dl (8.5-10.1) 06/12/22 Phosphorus Level 4.1 mg/dl (2.5-4.9) 05/28/22 Total Bilirubin 0.8 mg/dl (0.2-1.0) 05/26/22 Direct Bilirubin 0.4 mg/dl (0-0.2) H 05/18/22 AST/SGOT 32 U/L (13-39) 05/26/22 ALT/SGPT 26 U/L (7-52) 05/26/22 Alkaline Phosphatase 369 U/L (34-104) H 05/26/22 Total Protein 5.4 gm/dl (6.0-8.3) L 05/26/22 Albumin 2.4 gm/dl (3.4-5.0) L 05/28/22 Globulin 3.1 gm/dl (2.5-4.0) 05/26/22 Albumin/Globulin Ratio 0.7 (0.9-2) L 05/26/22 Total CK 16 U/L (26-192) L 06/10/22 CRP 12.07 mg/dl (0-0.5) H 06/10/22 Procalcitonin 3.70 ng/ml (0-0.5) H 05/17/22 Fibrinogen 429 mg/dl (184-400) H 05/20/22 PTT 61.9 Seconds (21.0-31.0) H* 06/03/22 INR 2.1 (0.9-1.1) H 06/13/22 SARS-CoV-2, RNA, NAAT NEGATIVE (NEGATIVE) 05/14/22 Sample Site L Radial 05/20/22 POC pH 7.41 (7.35-7.45) 05/20/22 POC pCO2 42 mmHg (35-46) 05/20/22 POC pO2 75 mmHg (80-95) L 05/20/22 POC HCO3 27 rosy/L (19-24) H 05/20/22 POC Total CO2 28 mmol/L (24-31) 05/20/22 POC Base Excess 2.0 rosy/L (-9-1.8) H 05/20/22 Ox Delivery Device Cannula 05/20/22 Chest X-Ray 05/18/22 (1) Osteomyelitis Osteomyelitis location: unspecified site Osteomyelitis type: unspecified type Qualified Code(s): M86.9 - Osteomyelitis, unspecified
--- NOTE | 2022-06-13 13:11 | Dialysis Progress Note ---
Date of Service June 13, 2022 Assessment & Plan (1) End-stage renal disease (ESRD): Plan: ESRD MWF at [facility] via dialysis catheter historically tolerated 2.5L fluid removal yesterday; will try for same today further HD today b/c she is regaining fluid -monitor for need to adjust abtx dosing w/ HD schedule > for at least 4 wks since 05/27 debridement -cont aggressive epo w/ HD -time abtx to dialysis as needed >> did d/w pharmacy today since she had extra tx (2) Osteomyelitis: Plan: -S/p surgical debridement - Continue Daptomycin Admission and Anticipated Discharge Date Admission Date: May 14, 2022 Subjective no interval events; remains on 2LNC Review of Systems Review of Systems: Unobtainable due to cognitive status Physical Exam Constitutional: well developed, well nourished, + ill appearing, + obese, + frail appearing and cooperative; no acute distress Eyes: EOM intact bilaterally ENMT: Ears: no external ear abnormality Nose: no external nose abnormality Mouth: + dry oral mucous membranes Neck: no nuchal rigidity Respiratory: normal respiratory effort (on 2L 02nc) and able to speak in complete sentences; no labored breathing, does not use accessory muscles, no cough and not tachypneic Auscultation: + diminished lung sounds Cardiovascular: Rate/Rhythm: regular rate, regular rhythm and + tachycardic Extremities: + edema (1++ dependent BLE) Gastrointestinal (Abdomen): Inspection/Auscultation: abdomen normal to inspection (w/ colostomy present) and normal bowel sounds Percussion/Palpation: abdomen soft; abdomen nontender Musculoskeletal: Extremities: + abnormal strength Skin: no rashes, warm and dry Psychiatric: Orientation: oriented to person, oriented to place and cooperative Affect: euthymic affect and + anxious affect Insight: + limited insight Results & Data ([facility]) Vital Signs (Past 12 Hours) Vital Signs Temp Pulse Pulse Pulse Resp BP BP 06/13/22 13:00 98 H 77/48 L 06/13/22 12:30 100 H 76/62 L 06/13/22 12:00 101 H 83/47 L 06/13/22 11:30 102 H 88/50 L 06/13/22 11:00 100 H 91/51 L 06/13/22 10:50 100 H 94/48 L 06/13/22 10:45 37.2 C 102 H 06/13/22 07:30 37.6 C H 104 H 16 100/58 L 06/13/22 07:00 102 H 06/13/22 02:36 37.5 C 101 H 18 94/58 L Pulse Ox O2 Del Method O2 Flow Rate 06/13/22 13:00 06/13/22 12:30 06/13/22 12:00 06/13/22 11:30 06/13/22 11:00 06/13/22 10:50 06/13/22 10:45 06/13/22 07:30 97 Nasal Cannula 2 06/13/22 07:00 06/13/22 02:36 100 Nasal Cannula 2 Laboratory Results no new bmp/cbc (1) Osteomyelitis Osteomyelitis location: unspecified site Osteomyelitis type: unspecified type Qualified Code(s): M86.9 - Osteomyelitis, unspecified
[2022-06-13] MEDS ORDERED: DAPTOmycin 250 MG in SYRINGE 0 ML IV SCH (16:00)
[2022-06-13] MEDS: WARFARIN SOD 0.5 MG TAB PO SCH (17:26)
[2022-06-13] MEDS: rOPINIRole HCL 0.25 MG TABLET PO SCH (20:55)
[2022-06-13] MEDS: LANTUS PER UNIT CHARGE SQ SCH (21:16)
[2022-06-14] MEDS: LEVOTHYROXINE SODIUM 150 MCG TABLET PO SCH (06:09)
[2022-06-14 06:21] LABS: INR 1.8 (0.9-1.1); Prothrombin Time 18.4 Seconds (9.0-12.0)
[2022-06-14] MEDS ORDERED: EPOETIN ALFA 20,000 UNITS/ML VIAL IV ONE (07:00)
[2022-06-14] MEDS ORDERED: SODIUM CHLORIDE 0.9% 1000ML 1,000 ML IV PRN (07:00)
[2022-06-14] MEDS ORDERED: ALBUMIN 25% 12.5 GM/50 ML VIAL IV ONE ×2 (07:00)
[2022-06-14] MEDS: MIDODRINE HCL 10 MG TAB PO SCH ×3 (07:45→18:00)
[2022-06-14 08:26] LABS: Basophils # (auto) 0.07 K/uL (0-0.2); Basophils % (auto) 0.5 %; Eosinophils # (auto) 0.16 K/uL (0-0.50); Eosinophils % (auto) 1.2 %; Hematocrit (blood only) 26.9 % (34.1-44.9); Hemoglobin 7.8 g/dl (12.0-16.0); Immature Granulocytes # (auto) 0.11 K/uL (0.00-0.02); Immature Granulocytes % (auto) 0.8 %; Lymphocytes # (auto) 0.65 K/uL (1.2-3.4); Lymphocytes % (auto) 4.8 %; Mean Corpuscular Hemoglobin 30.2 pg (25.0-34.0); Mean Corpuscular Volume 104.3 fL (80.0-100.0); Mean Platelet Volume 10.4 fL (9.4-12.3); Monocytes # (auto) 1.11 K/uL (0.24-0.82); Monocytes % (auto) 8.2 %; Neutrophils # (auto) 11.45 K/uL (1.4-6.5); Neutrophils % (auto) 84.5 %; Platelet Count 223 K/uL (130-400); RDW Standard Deviation 79.1 fL (36.4-46.3); Red Blood Count 2.58 M/uL (3.93-5.22); White Blood Count 13.55 K/ul (4.8-10.8)
[2022-06-14 08:45] LABS: BUN Creatinine Ratio 6.9 (10-20); Calcium 8.8 mg/dl (8.5-10.1); Creatinine Clr Calc Pharmacy 28.4 ml/min; Est GFR (African American) 28.7 ml/min; Est GFR (Non-African American) 24.7 ml/min
[2022-06-14 08:46] LABS: Anisocytosis Present; Target Cells 1+
--- NOTE | 2022-06-14 09:14 | Nephrology Progress Note ---
Date of Service June 14, 2022 Assessment & Plan (1) End-stage renal disease (ESRD): Plan: ESRD MWF at [facility] via dialysis catheter historically further HD today b/c she is regaining fluid -If blood pressure drops significantly with conventional hemodialysis, will change to isolated UF only for 3 hours with a target loss of 3 L -cont aggressive epo w/ HD -time abtx to dialysis as needed >> did d/w pharmacy today since she had extra tx (2) Osteomyelitis: Plan: -S/p surgical debridement - Continue Daptomycin renally dosed Admission and Anticipated Discharge Date Admission Date: May 14, 2022 Subjective Seen for ESRD. Main complaint is pain in the sacral area. She is also complaining of shortness of breath. Legs are swollen. Review of Systems Review of Systems: All other systems were reviewed and negative except as noted in HPI Physical Exam Physical Exam: General exam: Appears comfortable, no acute distress HEENT: Pupils are equal and reactive to light Neck: No JVD, neck is supple trachea is midline Respiratory system: Clear breath sounds bilaterally. Gastrointestinal: Abdomen is soft, non distended, non tender, bowel sounds are present CVS: Regular rate and rhythm. No murmurs, rubs or gallops Musculoskeletal: No joint or muscle tenderness Extremities: Non tender, 1+ edema, peripheral pulses are present Neuro: Oriented, no tremors, no focal neurological deficits Skin: No rashes Results & Data ([facility]) Vital Signs (Past 12 Hours) Vital Signs Temp Pulse Pulse Resp BP Pulse Ox O2 Del Method 06/14/22 08:34 36.6 C 98 H 20 90/58 L 98 Nasal Cannula 06/14/22 08:16 Nasal Cannula 06/13/22 23:00 98 H 06/14/22 03:06 37.1 C 20 81/53 L 99 Nasal Cannula 06/13/22 23:53 37.1 C 91 H 20 82/53 L 100 Nasal Cannula O2 Flow Rate 06/14/22 08:34 2 06/14/22 08:16 2 06/13/22 23:00 06/14/22 03:06 2 06/13/22 23:53 2 Laboratory Results 06/14/22 07:50 06/14/22 07:50 WBC 13.55 H RBC 2.58 L MCV 104.3 H MCH 30.2 MCHC 29.0 L RDW Std Deviation 79.1 H RDW Coeff of Josh 21.0 H Plt Count 223 MPV 10.4 (1) Osteomyelitis Osteomyelitis location: unspecified site Osteomyelitis type: unspecified type Qualified Code(s): M86.9 - Osteomyelitis, unspecified
[2022-06-14] MEDS: INSULIN ASPART PER UNIT SC SCH ×4 (09:31→20:55)
--- NOTE | 2022-06-14 10:50 | XRay Report ---
XR chest 1V portable HISTORY: Shortness of breath. assess HF status COMPARISON: Chest 05/18/2022. FINDINGS: There are low lung volumes. No pneumothorax. Right jugular catheter terminates in the right atrium. This remains unchanged. Small bilateral pleural effusions and cardiomegaly persist. There is right greater than left interstitial/vascular thickening and perihilar hazy airspace opacities. This consistent with moderate pulmonary edema. This is stable to slightly progressed compared to the prio r study. IMPRESSION: Stable to slight progression of the moderate pulmonary edema and small bilateral pleural effusions. ACT 112: Negative or not required by law. Electronically signed by: Alexandro Anaya M.D. 06/14/2022 10:49 AM
[2022-06-14] MEDS: NEPHROCAPS PO SCH ×2 (13:07→20:26)
[2022-06-14] MEDS: AMIODARONE 200 MG TAB PO SCH (13:08)
[2022-06-14] MEDS: FLUTICASONE PROPIONATE NA SPR 16 GM BTL SCH (13:08)
[2022-06-14] MEDS: ADVANCED PROBIOTIC 1250 MG CAPSULE PO SCH (13:08)
[2022-06-14] MEDS: BRIMONIDINE TARTRATE 0.2% 5ML OP SCH ×2 (13:09→20:26)
--- NOTE | 2022-06-14 13:48 | Pharmacy Report ---
Pharmacy Glycemic Short Note 2 - Date of Service June 14, 2022 - Glycemic Short BSG Results (Last 24 hours): 06/13/22 06/13/22 06/14/22 16:26 20:33 07:18 Glucose POC Glucose 111 H 235 H 155 H 06/14/22 06/14/22 07:50 13:02 Glucose 168 H POC Glucose 261 H OUTPATIENT ANTIDIABETIC REGIMEN: * Basaglar 42 units HS - reports following [facility] * Patient is also to be taking Trulicity and Novolog but does not. Has been discharged from the [facility] clinic due to failure to respond. * HbA1c = 5.9% (05/15/22) * However, this result is likely somewhat unreliable in ESRD patients d/t interactions between the A1c analyzing technique and high levels of urea in ESRD, reduced RBC life span, iron deficiency anemia, and EPO administration. HbA1c > 7.5% in ESRD patient may overestimate the extent of hyperglycemia in ESRD patients. ASSESSMENT: 06/14: * Patient received total of 23 units of insulin yesterday, of which 12 units were basal * Fasting BSG 155 mg/dL - appropriate, continue same basal insulin * RN called this morning as patient going to dialysis - Dialysis requesting we hold correctional insulin due to concerns for blood sugars dropping while at dialysis 06/10: * Patient received total of 36 units of insulin yesterday; 12 units basal + 24 units bolus. * BSGs yesterday were [phone] mg/dl. Patient had refused basal insulin dose the day prior but BSGs were not too badly elevated. She had also got Hemo-dialysis yesterday. * Fasting BSG today was 150 mg/dl. Continued with basal insulin 12 units at HS. * Patient made NPO this morning for surgical debridement of sacral necrotic wound. * Continued Novolog parameters the same since post prandial BSGs have been fairly well controlled with current parameters. 06/07: * BSGs have been reasonable over past 72 hours, although episode of hypoglycemia noted yesterday AM (65 mg/dL) * Basal insulin reduced yesterday in response to low * Fasting BSG trending up today following reduced dose, will increase slightly this evening * Hemodialysis scheduled for today 06/03: * Received 33 units of insulin yesterday - 16 units basal + 17 units bolus. BSGs were elevated: 147-235-316 mg/dL. * Fasting BSG a little below goal today at 99 mg/dL. Will decrease basal this evening slightly. * No change to Novolog. Hyperglycemia last evening likely secondary to dialysis and no lunch coverage. 06/02: * Leny received 39 units of insulin yesterday - 16 units basal + 23 units bolus. BSGs controlled: 430-165-397-150 mg/dL. * Fasting BSG acceptable at 147 mg/dL today. Dialysis today. * No changes to regimen necessary. 05/31: * Patient received 38 units of insulin yesterday - 16 units basal + 22 units bolus. BSGs controlled: 87-36-349-196 mg/dL. * Fasting BSG acceptable at 159 mg/dL this morning. No change to basal. * Will tighten carb ratio slightly this morning secondary to BSGs trending up throughout the day. 05/30: * Leny received a total of 54 units of insulin yesterday (20 units basal + 34 units bolus). BSGs were elevated: 097-47-289-375-288 mg/dL. * According to RN, patient did supply the patient with some fast food from outside the hospital last evening. These uncovered carbs likely led to hyperglycemia at bedtime. * Fasting BSG was significantly lower than any of the previous days at 81 mg/dL. Unsure if this was due to basal increase yesterday or large Novolog doses stacking at bedtime and midnight. * Regardless, will decrease basal by 20% today. * No change to Novolog. PLAN FOR INPATIENT GLYCEMIC CONTROL: * Basal insulin * Lantus 12 units SC HS * Bolus insulin * NovoLog per scale ACHS * Goal Range: Low 110 mg/dL - High 140 mg/dL * Correction Factor: 20 mg/dL/unit * Nutritional / Prandial insulin per carb ratio of 1 unit per 6 grams CHO consumed
--- NOTE | 2022-06-14 14:11 | Hospitalist Progress Note ---
Date of Service June 14, 2022 Assessment & Plan (1) Sepsis: Plan: Sacral Wound Osteomyelitis ( Biopsy confirmed on 06/10) Has undergone multiple debridement; last one in 06/10/2022. Had wound VAC placed but got dislodged. Currently on daily dressing. Sacral Wound Grew: Enterococcus VRE on 05/27/2022 Source likely stage IV sacral ulcer with likely underlying osteomyelitis Initially was on broad spectrum abx with intravenous cefepime, daptomycin and o ral fluconazole S/P debridement of sacral ulcer with bone biopsy on 05/27/2022 and repeat debridement 06/10 Evaluated by surgery and ID- recommendations noted Plan: -ID has been informed regarding the consult regarding the duration of antibiotics. Awaiting response. Continue on daptomycin day 22. -Given her multiple comorbid condition and wound care needs; will evaluate her for LTACH placement. Discussed with catalytic case operator. Adjustment disorder with depressed mood Appreciate psychiatrist input and recommendation Vitamin B12, folate and TSH are normal stable (2) Anemia: Plan: Chronic anemia in the setting of ESRD and GI losses (reported but not observed) and phlebotomy Was reportedly getting ?EPO injections with HD per Patient - continue EPO per renal No signs of active bleeding Positive FOBT S/P PRBCs during HD Monitor CBC (3) Osteomyelitis: Plan: (4) New onset atrial fibrillation: Plan: On amiodarone 200mg once daily. On Coumadin 1.5mg. INR is 1.8 today. (5) Ulcer of sacral region, stage 4: Plan: plan as above. (6) Radiation necrosis of skin and subcutaneous: Plan: - plan as above (7) Acute hyponatremia: Plan: - likely due to sepsis and decrease po intake Sodium level stable Monitor (8) End-stage renal disease (ESRD): Plan: Has been on HD for the past year, per patient Normal HD schedule MWF Continue hemodialysis as per Nephrology (9) Diabetes: Plan: Continue insulin per protocol (10) Hypothyroid: Plan: TSH 22, FT4 <0.25 unclear if patient taking medication appropriately TSH normalized with restarting levothyroxine (11) Thrombocytopenia: Plan: unclear chronicity likely consumption in sepsis, ESRD, chronic illness no signs of bleeding Monitor (12) Coagulopathy: Plan: Monitor INR: 9.6>3.1>2.7>3.6->3.4->2.1->2 > 2.5> 2.1> 1.8 No obvious bleeding issues continue coumadin- recheck INR in am Plan DVT px:coumadin Dispo- Debridement on 06/10; Referral for LTACH to be sent. Code Status: DNI/DNR Admission and Anticipated Discharge Date Admission Date: May 14, 2022 Subjective Patient seen and examined at bedside. She is sitting up on the bed; not in any acute distress. She complains of slight pain in her sacral wound. No complaint of fever, chills, chest pain, shortness of breath or abdominal pain. Review of Systems Review of Systems: All systems reviewed and are unremarkable except as noted b elow Physical Exam Physical Exam: General: Sitting comfortably in bed, not in distress, on NC HEENT: EOMI, SHIRAZ, MMM Chest: Decreased breath sounds bilaterally, no accessory muscle use CVS: Regular rate and rhythm, normal heart sounds, no murmur Abdomen: Soft, non tender, not distended, Left sided colostomy with stool Neuro: Awake, alert, oriented, conversing well, non focal Extremities: Some pedal edema. Sacral wound s/p repeat debridement Results & Data Results & Data ([facility]) Vital Signs (Past 12 Hours) Vital Signs Temp Pulse Pulse Pulse Resp BP BP 06/14/22 13:05 36.5 C 91 H 22 104/72 06/14/22 12:30 36.6 C 93 H 126/73 06/14/22 12:30 88 124/87 06/14/22 12:00 91 H 115/67 06/14/22 11:30 93 H 114/63 06/14/22 07:00 100 H 06/14/22 11:00 94 H 114/70 06/14/22 10:30 95 H 81/35 L 06/14/22 10:00 94 H 93/41 L 06/14/22 09:30 94 H 103/54 L 06/14/22 09:24 36.6 C 98 H 06/14/22 08:34 36.6 C 98 H 20 90/58 L 06/14/22 08:16 06/14/22 03:06 37.1 C 20 81/53 L Pulse Ox O2 Del Method O2 Flow Rate 06/14/22 13:05 100 Nasal Cannula 2 06/14/22 12:30 06/14/22 12:30 06/14/22 12:00 06/14/22 11:30 06/14/22 07:00 06/14/22 11:00 06/14/22 10:30 06/14/22 10:00 06/14/22 09:30 06/14/22 09:24 06/14/22 08:34 98 Nasal Cannula 2 06/14/22 08:16 Nasal Cannula 2 06/14/22 03:06 99 Nasal Cannula 2 COVID-19 Results Results COVID-19 Adm Lab Results: RBC 2.58 M/uL (3.93-5.22) L 06/14/22 WBC 13.55 K/ul (4.8-10.8) H 06/14/22 Hgb 7.8 g/dl (12.0-16.0) L 06/14/22 Hct 26.9 % (34.1-44.9) L 06/14/22 Plt Count 223 K/uL (130-400) 06/14/22 Neutrophils (%) (Auto) 84.5 % 06/14/22 Lymphocytes (%) (Auto) 4.8 % 06/14/22 Monocytes # (Auto) 1.11 K/uL (0.24-0.82) H 06/14/22 Eosinophils # (Auto) 0.16 K/uL (0-0.50) 06/14/22 Immature Granulocyte % (Auto) 0.8 % 06/14/22 Neutrophils # (Auto) 11.45 K/uL (1.4-6.5) H 06/14/22 Lymphocytes # (Auto) 0.65 K/uL (1.2-3.4) L 06/14/22 Monocytes # (Auto) 1.11 K/uL (0.24-0.82) H 06/14/22 Eosinophils # (Auto) 0.16 K/uL (0-0.50) 06/14/22 Basophils # (Auto) 0.07 K/uL (0-0.2) 06/14/22 Immature Granulocyte # (Auto) 0.11 K/uL (0.00-0.02) H 06/14 Red Blood Cell Morphology Unremarkable 05/26/22 Polychromasia 1+ 05/28/22 Poikilocytosis Present 05/17/22 Basophilic Stippling 1+ 05/21/22 Echinocytes 2+ 05/17/22 Anisocytosis Present 06/14/22 Macrocytosis Present 06/03/22 Target Cells 1+ 06/14/22 Tear Drop Cells 1+ 05/14/22 Stomatocytes 1+ 05/27/22 Acanthocytes 1+ 05/17/22 Na 135 mmol/L (136-145) L 06/14/22 K 4.0 mmol/L (3.5-5.1) 06/14/22 Cl 99 mmol/L (98-107) 06/14/22 CO2 31 mmol/L (21-32) 06/14/22 Anion Gap 5 (3-11) 06/14/22 BUN 14 mg/dl (6-23) 06/14/22 Creatinine 2.02 mg/dl (0.6-1.2) H 06/14/22 BUN/Creatinine Ratio 6.9 (10-20) L 06/14/22 Glucose Level 168 mg/dl (70-99(Fasting)) H 06/14/22 Ca 8.8 mg/dl (8.5-10.1) 06/14/22 Phosphorus Level 4.1 mg/dl (2.5-4.9) 05/28/22 Total Bilirubin 0.8 mg/dl (0.2-1.0) 05/26/22 Direct Bilirubin 0.4 mg/dl (0-0.2) H 05/18/22 AST/SGOT 32 U/L (13-39) 05/26/22 ALT/SGPT 26 U/L (7-52) 05/26/22 Alkaline Phosphatase 369 U/L (34-104) H 05/26/22 Total Protein 5.4 gm/dl (6.0-8.3) L 05/26/22 Albumin 2.4 gm/dl (3.4-5.0) L 05/28/22 Globulin 3.1 gm/dl (2.5-4.0) 05/26/22 Albumin/Globulin Ratio 0.7 (0.9-2) L 05/26/22 Total CK 16 U/L (26-192) L 06/10/22 CRP 12.07 mg/dl (0-0.5) H 06/10/22 Procalcitonin 3.70 ng/ml (0-0.5) H 05/17/22 Fibrinogen 429 mg/dl (184-400) H 05/20/22 PTT 61.9 Seconds (21.0-31.0) H* 06/03/22 INR 1.8 (0.9-1.1) H 06/14/22 SARS-CoV-2, RNA, NAAT NEGATIVE (NEGATIVE) 05/14/22 Sample Site L Radial 05/20/22 POC pH 7.41 (7.35-7.45) 05/20/22 POC pCO2 42 mmHg (35-46) 05/20/22 POC pO2 75 mmHg (80-95) L 05/20/22 POC HCO3 27 rosy/L (19-24) H 05/20/22 POC Total CO2 28 mmol/L (24-31) 05/20/22 POC Base Excess 2.0 rosy/L (-9-1.8) H 05/20/22 Ox Delivery Device Cannula 05/20/22 Chest X-Ray 06/14/22 (1) Osteomyelitis Osteomyelitis location: unspecified site Osteomyelitis type: unspecified type Qualified Code(s): M86.9 - Osteomyelitis, unspecified
[2022-06-14] MEDS: DAPTOmycin 550 MG in SYRINGE 0 ML IV SCH (14:22)
[2022-06-14] MEDS: WARFARIN SOD 0.5 MG TAB PO SCH (16:35)
[2022-06-14] MEDS: rOPINIRole HCL 0.25 MG TABLET PO SCH (20:26)
[2022-06-14] MEDS: GABAPENTIN 100 MG CAP PO SCH (20:55)
[2022-06-14] MEDS: LANTUS PER UNIT CHARGE SQ SCH (20:56)
[2022-06-15] MEDS: LEVOTHYROXINE SODIUM 150 MCG TABLET PO SCH (06:14)
[2022-06-15 06:40] LABS: Basophils # (auto) 0.11 K/uL (0-0.2); Basophils % (auto) 0.8 %; Eosinophils # (auto) 0.27 K/uL (0-0.50); Eosinophils % (auto) 1.9 %; Hematocrit (blood only) 26.9 % (34.1-44.9); Hemoglobin 8.1 g/dl (12.0-16.0); Immature Granulocytes # (auto) 0.12 K/uL (0.00-0.02); Immature Granulocytes % (auto) 0.8 %; Lymphocytes # (auto) 1.18 K/uL (1.2-3.4); Lymphocytes % (auto) 8.2 %; Mean Corpuscular Hemoglobin 30.7 pg (25.0-34.0); Mean Corpuscular Hgb Conc 30.1 g/dL (32.0-36.0); Mean Corpuscular Volume 101.9 fL (80.0-100.0); Mean Platelet Volume 9.9 fL (9.4-12.3); Monocytes # (auto) 1.33 K/uL (0.24-0.82); Monocytes % (auto) 9.3 %; Neutrophils # (auto) 11.32 K/uL (1.4-6.5); Nucleated RBC # (auto) 0.02 K/uL (0-0); Nucleated RBC % (auto) 0.1 %; Platelet Count 215 K/uL (130-400); RDW Coefficient of Variation 20.9 % (11.5-14.5); RDW Standard Deviation 77.1 fL (36.4-46.3); Red Blood Count 2.64 M/uL (3.93-5.22); White Blood Count 14.33 K/ul (4.8-10.8)
[2022-06-15 06:54] LABS: INR 1.8 (0.9-1.1); Prothrombin Time 18.4 Seconds (9.0-12.0)
[2022-06-15] MEDS: traMADol HCL 50 MG TABLET PO PRN ×3 (06:58→20:01)
[2022-06-15 07:05] LABS: Anisocytosis Present; Stomatocytes 1+; Target Cells 2+
[2022-06-15 07:15] LABS: Albumin Globulin Ratio 0.9 (0.9-2); Albumin Level 2.7 gm/dl (3.4-5.0); BUN Creatinine Ratio 8.6 (10-20); Bilirubin,Total 1.3 mg/dl (0.2-1.0); Calcium 8.9 mg/dl (8.5-10.1); Creatinine Clr Calc Pharmacy 20.5 ml/min; Est GFR (African American) 20.4 ml/min; Est GFR (Non-African American) 17.6 ml/min; Potassium 4.2 mmol/L (3.5-5.1); Total Protein 5.7 gm/dl (6.0-8.3)
[2022-06-15] MEDS: INSULIN ASPART PER UNIT SC SCH ×4 (08:29→20:16)
[2022-06-15] MEDS: MIDODRINE HCL 10 MG TAB PO SCH ×3 (08:32→16:54)
[2022-06-15] MEDS: NEPHROCAPS PO SCH ×2 (08:32→19:52)
[2022-06-15] MEDS: AMIODARONE 200 MG TAB PO SCH (08:32)
[2022-06-15] MEDS: ADVANCED PROBIOTIC 1250 MG CAPSULE PO SCH (08:32)
[2022-06-15] MEDS: BRIMONIDINE TARTRATE 0.2% 5ML OP SCH ×2 (08:32→19:52)
[2022-06-15] MEDS: FLUTICASONE PROPIONATE NA SPR 16 GM BTL SCH (08:33)
--- NOTE | 2022-06-15 12:06 | Hospitalist Progress Note ---
Date of Service June 15, 2022 Assessment & Plan (1) Sepsis: Plan: Sacral Wound Osteomyelitis ( Biopsy confirmed on 06/10) Has undergone multiple debridement; last one in 06/10/2022. Had wound VAC placed but got dislodged. Currently on daily dressing. Sacral Wound Grew: Enterococcus VRE on 05/27/2022 Source likely stage IV sacral ulcer with likely underlying osteomyelitis Initially was on broad spectrum abx with intravenous cefepime, daptomycin and o ral fluconazole S/P debridement of sacral ulcer with bone biopsy on 05/27/2022 and repeat debridement 06/10 Evaluated by surgery and ID- recommendations noted Plan: Discussed over the phone with infectious disease (Dr. Mclean) over the phone on 06/14. Reviewed pathology and microbiology with him over the phone. He suggested daptomycin for 3 more weeks. However, given the extent of her sacral wound; infection control is difficult. Recommend aggressive wound care. Discussed with family at bedside; they do not want her to go to [facility]. Would prefer her to go to [facility]. We will continue aggressive wound care daily while inpatient. . Appreciate surgery recommendation. Adjustment disorder with depressed mood Appreciate psychiatrist input and recommendation Vitamin B12, folate and TSH are normal stable (2) Anemia: Plan: Chronic anemia in the setting of ESRD and GI losses (reported but not observed) and phlebotomy Was reportedly getting ?EPO injections with HD per Patient - continue EPO per renal No signs of active bleeding Positive FOBT S/P PRBCs during HD Monitor CBC (3) Osteomyelitis: Plan: (4) New onset atrial fibrillation: Plan: On amiodarone 200mg once daily. On Coumadin 1.5mg. INR is 1.8 today. (5) Ulcer of sacral region, stage 4: Plan: plan as above. (6) Radiation necrosis of skin and subcutaneous: Plan: - plan as above (7) Acute hyponatremia: Plan: - likely due to sepsis and decrease po intake Sodium level stable Monitor (8) End-stage renal disease (ESRD): Plan: Has been on HD for the past year, per patient Normal HD schedule MWF Continue hemodialysis as per Nephrology (9) Diabetes: Plan: Continue insulin per protocol (10) Hypothyroid: Plan: TSH 22, FT4 <0.25 unclear if patient taking medication appropriately TSH normalized with restarting levothyroxine (11) Thrombocytopenia: Plan: unclear chronicity likely consumption in sepsis, ESRD, chronic illness no signs of bleeding Monitor (12) Coagulopathy: Plan: Monitor INR: 9.6>3.1>2.7>3.6->3.4->2.1->2 > 2.5> 2.1> 1.8 No obvious bleeding issues continue coumadin- recheck INR in am Plan DVT px:coumadin Dispo- Debridement on 06/10; placement to [facility] when medically stable. Code Status: DNI/DNR Admission and Anticipated Discharge Date Admission Date: May 14, 2022 Subjective Comfortable; not in acute distress. No events overnight. Review of Systems Review of Systems: All systems reviewed & are unremarkable except as noted in Subjective Physical Exam Physical Exam: General: Sitting comfortably in bed, not in distress, on NC HEENT: EOMI, SHIRAZ, MMM Chest: Decreased breath sounds bilaterally, no accessory muscle use CVS: Regular rate and rhythm, normal heart sounds, no murmur Abdomen: Soft, non tender, not distended, Left sided colostomy with stool Neuro: Awake, alert, oriented, conversing well, non focal Extremities: Some pedal edema. Sacral wound s/p repeat debridement. wound pic in chart Results & Data Results & Data ([facility]) Vital Signs (Past 12 Hours) Vital Signs Temp Pulse Pulse Resp BP Pulse Ox O2 Del Method 06/15/22 11:09 36.9 C 80 19 88/53 L 98 Nasal Cannula 06/15/22 08:30 Nasal Cannula 06/15/22 08:30 90 06/15/22 07:29 37.0 C 95 H 19 85/49 L 96 Nasal Cannula 06/15/22 03:00 37.5 C 86 18 96/62 L 99 06/15/22 01:09 36.6 C 84 16 94/58 L 97 Nasal Cannula O2 Flow Rate 06/15/22 11:09 2 06/15/22 08:30 2 06/15/22 08:30 06/15/22 07:29 2 06/15/22 03:00 06/15/22 01:09 2 Diagnostic Findings Laboratory Results WBC 14.33 K/ul (4.8-10.8) H 06/15/22 06:25 RBC 2.64 M/uL (3.93-5.22) L 06/15/22 06:25 Hgb 8.1 g/dl (12.0-16.0) L 06/15/22 06:25 POC Hgb 9.2 g/dl (12.0-16.0) L 05/20/22 19:02 Hct 26.9 % (34.1-44.9) L 06/15/22 06:25 POC Hct 27 % (37-47) L 05/20/22 19:02 MCV 101.9 fL (80.0-100.0) H 06/15/22 06:25 MCH 30.7 pg (25.0-34.0) 06/15/22 06:25 MCHC 30.1 g/dL (32.0-36.0) L 06/15/22 06:25 RDW Std Deviation 77.1 fL (36.4-46.3) H 06/15/22 06:25 RDW Coeff of Josh 20.9 % (11.5-14.5) H 06/15/22 06:25 Plt Count 215 K/uL (130-400) 06/15/22 06:25 MPV 9.9 fL (9.4-12.3) 06/15/22 06:25 Immature Gran % (Auto) 0.8 % 06/15/22 06:25 Neut % (Auto) 79.0 % 06/15/22 06:25 Lymph % (Auto) 8.2 % 06/15/22 06:25 [place] % (Auto) 9.3 % 06/15/22 06:25 Eos % (Auto) 1.9 % 06/15/22 06:25 Baso % (Auto) 0.8 % 06/15/22 06:25 Neut # (Auto) 11.32 K/uL (1.4-6.5) H 06/15/22 06:25 Lymph # (Auto) 1.18 K/uL (1.2-3.4) L 06/15/22 06:25 [place] # (Auto) 1.33 K/uL (0.24-0.82) H 06/15/22 06:25 Eos # (Auto) 0.27 K/uL (0-0.50) 06/15/22 06:25 Baso # (Auto) 0.11 K/uL (0-0.2) 06/15/22 06:25 Immature Gran # (Auto) 0.12 K/uL (0.00-0.02) H 06/15/22 06:25 Absolute Nucleated RBC 0.02 K/uL (0-0) H 06/15/22 06:25 Nucleated RBC % (auto) 0.1 % 06/15/22 06:25 Neutrophils % (Manual) Cancelled 05/17/22 05:41 Band Neutrophils % Cancelled 05/17/22 05:41 Lymphocytes % (Manual) Cancelled 05/17/22 05:41 Prolymphocyte % Cancelled 05/17/22 05:41 Reactive Lymphs % (Man) Cancelled 05/17/22 05:41 Monocytes % (Manual) Cancelled 05/17/22 05:41 Eosinophils % (Manual) Cancelled 05/17/22 05:41 Basophils % (Manual) Cancelled 05/17/22 05:41 Metamyelocytes % (Man) Cancelled 05/17/22 05:41 Myelocytes % (Man) Cancelled 05/17/22 05:41 Promyelocytes % (Man) Cancelled 05/17/22 05:41 Blast Cells % (Manual) Cancelled 05/17/22 05:41 Plasma Cell % (Manual) Cancelled 05/17/22 05:41 Other Cells % Cancelled 05/17/22 05:41 Nucleated RBC % Cancelled 05/17/22 05:41 Neutrophils # (Manual) Cancelled 05/17/22 05:41 Band Neutrophils # Cancelled 05/17/22 05:41 Total Absolute Neuts Cancelled 05/17/22 05:41 Lymphocytes # (Manual) Cancelled 05/17/22 05:41 Prolymphocyte # Cancelled 05/17/22 05:41 Reactive Lymphs # Cancelled 05/17/22 05:41 Total Abs Lymphocytes Cancelled 05/17/22 05:41 Monocytes # (Manual) Cancelled 05/17/22 05:41 Eosinophils # (Manual) Cancelled 05/17/22 05:41 Basophils # (Manual) Cancelled 05/17/22 05:41 Metamyelocytes # (Man) Cancelled 05/17/22 05:41 Myelocytes # (Manual) Cancelled 05/17/22 05:41 Promyelocytes # (Man) Cancelled 05/17/22 05:41 Blast Cells # (Man) Cancelled 05/17/22 05:41 Plasma Cell # (Manual) Cancelled 05/17/22 05:41 Other Cells # Cancelled 05/17/22 05:41 Nucleated RBCs # (Man) Cancelled 05/17/22 05:41 Hypersegmented Neuts Cancelled 05/17/22 05:41 Hyposegmented Neuts Cancelled 05/17/22 05:41 Hypogranular Neuts Cancelled 05/17/22 05:41 Large Granular Lymphs Cancelled 05/17/22 05:41 # Lrg Granular Lymphs Cancelled 05/17/22 05:41 Hairy Cells Cancelled 05/17/22 05:41 Smudge Cells Cancelled 05/17/22 05:41 Toxic Granulation Cancelled 05/17/22 05:41 Toxic Vacuolation Cancelled 05/17/22 05:41 Dohle Bodies Cancelled 05/17/22 05:41 Ashtyn Rods Cancelled 05/17/22 05:41 Platelet Estimate Cancelled 05/17/22 05:41 Hypogranular Platelets Cancelled 05/17/22 05:41 Clumped Platelets Cancelled 05/17/22 05:41 Giant Platelets Cancelled 05/17/22 05:41 Platelet Satelliting Cancelled 05/17/22 05:41 RBC Morphology Unremarkable 05/26/22 05:22 Polychromasia 1+ 05/28/22 06:20 Hypochromasia Cancelled 05/17/22 05:41 Poikilocytosis Present 05/17/22 07:08 Basophilic Stippling 1+ 05/21/22 05:42 Anisocytosis Present 06/15/22 06:25 Microcytosis Cancelled 05/17/22 05:41 Macrocytosis Present 06/03/22 06:54 Spherocytes Cancelled 05/17/22 05:41 Pappenheimer Bodies Cancelled 05/17/22 05:41 Sickle Cells Cancelled 05/17/22 05:41 Target Cells 2+ 06/15/22 06:25 Tear Drop Cells Cancelled 05/17/22 05:41 Ovalocytes Cancelled 05/17/22 05:41 Stomatocytes 1+ 06/15/22 06:25 [place] Bodies Cancelled 05/17/22 05:41 Echinocytes 2+ 05/17/22 07:08 Acanthocytes (Spur) 1+ 05/17/22 07:08 Rouleaux Cancelled 05/17/22 05:41 RBC Agglutinates Cancelled 05/17/22 05:41 Schistocytes Cancelled 05/17/22 05:41 ESR > 130 mm/hr (0-30) H 06/10/22 06:07 Sezary Cell Cancelled 05/17/22 05:41 PT 18.4 Seconds (9.0-12.0) H 06/15/22 06:25 INR 1.8 (0.9-1.1) H 06/15/22 06:25 APTT 61.9 Seconds (21.0-31.0) H* 06/03/22 06:54 PTT Ratio 2.3 06/03/22 06:54 Fibrinogen 429 mg/dl (184-400) H 05/20/22 08:48 Sample Site L Radial 05/20/22 19:02 POC pH 7.41 (7.35-7.45) 05/20/22 19:02 POC pCO2 42 mmHg (35-46) 05/20/22 19:02 POC pO2 75 mmHg (80-95) L 05/20/22 19:02 POC HCO3 27 rosy/L (19-24) H 05/20/22 19:02 POC Total CO2 28 mmol/L (24-31) 05/20/22 19:02 POC Base Excess 2.0 rosy/L (-9-1.8) H 05/20/22 19:02 ABG pH (Temp Correct) 7.416 (7.35-7.45) 05/20/22 19:02 ABG pCO2 (Temp Corrct 42 mmHg (35-46) 05/20/22 19:02 POC ABG pO2 at Pt Temp 74 05/20/22 19:02 POC ABG O2 Sat 95.0 % (90-95) 05/20/22 19:02 Tom Test Pass 05/20/22 19:02 O2 Delivery Device Cannula 05/20/22 19:02 POC Sodium 134 mmol/L (135-144) L 05/20/22 19:02 Sodium 133 mmol/L (136-145) L 06/15/22 06:25 POC Potassium 3.1 mmol/L (3.3-5.0) L 05/20/22 19:02 Potassium 4.2 mmol/L (3.5-5.1) 06/15/22 06:25 Chloride 100 mmol/L (98-107) 06/15/22 06:25 Carbon Dioxide 28 mmol/L (21-32) 06/15/22 06:25 Anion Gap 5 (3-11) 06/15/22 06:25 BUN 23 mg/dl (6-23) 06/15/22 06:25 Creatinine 2.67 mg/dl (0.6-1.2) H D 06/15/22 06:25 Est Cr Clr Drug Dosing 20.5 ml/min 06/15/22 06:25 Est GFR ( Amer) 20.4 ml/min 06/15/22 06:25 Est GFR (Non-Af Amer) 17.6 ml/min 06/15/22 06:25 BUN/Creatinine Ratio 8.6 (10-20) L 06/15/22 06:25 Glucose 122 mg/dl (70-99(Fasting)) H 06/15/22 06:25 POC Glucose 154 mg/dl (70-99) H 06/15/22 11:09 Estimat Average Glucose 123 mg/dl 05/15/22 05:59 Hemoglobin A1c 5.9 % (4.5-5.6) H 05/15/22 05:59 Lactate 2.1 mmol/L (0.4-2.0) H* 05/22/22 07:19 Calcium 8.9 mg/dl (8.5-10.1) 06/15/22 06:25 Phosphorus 4.1 mg/dl (2.5-4.9) D 05/28/22 06:20 Magnesium 1.7 mg/dl (1.7-2.4) 06/12/22 06:27 Total Bilirubin 1.3 mg/dl (0.2-1.0) H 06/15/22 06:25 Direct Bilirubin 0.4 mg/dl (0-0.2) H 05/18/22 04:53 AST 38 U/L (13-39) 06/15/22 06:25 ALT 15 U/L (7-52) 06/15/22 06:25 Alkaline Phosphatase 395 U/L (34-104) H 06/15/22 06:25 Total Creatine Kinase 16 U/L (26-192) L 06/10/22 06:07 Troponin I High Sens 306.8 pg/ml (0-14) H* D 05/21/22 17:19 Troponin I High Sens Cancelled 05/21/22 17:19 C-Reactive Protein 12.07 mg/dl (0-0.5) H 06/10/22 06:07 Total Protein 5.7 gm/dl (6.0-8.3) L 06/15/22 06:25 Albumin 2.7 gm/dl (3.4-5.0) L 06/15/22 06:25 Globulin 3.0 gm/dl (2.5-4.0) 06/15/22 06:25 Albumin/Globulin Ratio 0.9 (0.9-2) 06/15/22 06:25 Vitamin B12 > 1500 pg/ml (180-914) H 05/27/22 06:01 25-OH Vitamin D Total 49.4 ng/ml (30-100) 05/27/22 06:01 Folate 13.40 ng/ml (>5.38) 05/27/22 06:01 Procalcitonin 3.70 ng/ml (0-0.5) H 05/17/22 09:35 TSH 2.043 uIu/ml (0.300-4.500) 05/21/22 17:19 Free T4 0.59 ng/dl (0.61-1.60) L 05/20/22 05:35 Nasal Screen MRSA (PCR) Negative (Negative) 05/17/22 03:30 Stool Occult Bld Scrn Positive (Negative) A 05/22/22 03:59 Hep Bs Antigen NON-REACTIVE (NON-REACTIVE) 06/10/22 06:07 Hep Bs Ag Confirmation TNP 06/10/22 06:07 Hep Bs Antibody, Quant <5 mIU/mL (> OR = 10) L 06/10/22 06:07 SARS-CoV-2, RNA, NAAT NEGATIVE (NEGATIVE) 05/14/22 15:38 Blood Parasites ID Cancelled 05/17/22 05:41 Blood Type A Positive 06/01/22 09:53 Antibody Screen NEGATIVE 06/01/22 09:53 Crossmatch See Detail 06/01/22 09:53 Impressions Abdomen/Pelvis CT 05/14/22 14:58 CT abd pelvis wo con CLINICAL HISTORY: sacral wound TECHNIQUE: Helical axial images of the abdomen and pelvis were obtained. Automated dose lowering techniques and/or adjustment according to patient size were utilized for this exam. This exam was performed without intravenous contrast. CT DOSE: 840.85 mGy.cm COMPARISON: None available at the time of this dictation. FINDINGS: Lower chest: Bilateral pleural effusions are seen with underlying atelectasis. Cardiomegaly is seen. Three-vessel atherosclerosis is seen in the coronaries. Liver: Unremarkable. No focal lesions are seen. Gallbladder and biliary tree: No calcified gallstones. Normal caliber wall. No intra- or extrahepatic biliary ductal dilation. Pancreas: Unremarkable, no focal lesions. Spleen: Calcifications are noted in the spleen compatible with prior granulomat ous disease. Adrenals: Unremarkable. Kidneys and ureters: Perinephric stranding is noted bilaterally. Bladder: Limited evaluation due to underdistention. Reproductive organs: Patient is status post hysterectomy. Bowel: A double barreled colostomy is noted in the right lower quadrant. Patient is status post appendectomy. Lymph nodes Retroperitoneal: Unremarkable. Pelvic: Unremarkable. Mesenteric: Unremarkable. Peritoneum: Mild ascites is seen. Vessels: Atherosclerotic calcifications are seen. Abdominal wall: Prominent body wall edema is seen. There is a large sacral ulcer which extends to the bone and has significant surrounding swelling. Bones: There is erosion of the distal sacrum with a few bony fragments noted. Degenerative changes are seen elsewhere in the skeleton. IMPRESSION: 1. Large sacral ulcer with erosion of the sacral bone, underlying osteomyelitis is likely. 2. Mild ascites and prominent body wall edema. 3. Bilateral pleural effusions with associated atelectasis. Cardiomegaly. 4. Additional findings as above. ACT 112: Negative or not required by law. Electronically signed by: Eriberto Wiley M.D. 05/14/2022 3:43 PM Chest X-Ray 06/14/22 07:30 XR chest 1V portable HISTORY: Shortness of breath. assess HF status COMPARISON: Chest 05/18/2022. FINDINGS: There are low lung volumes. No pneumothorax. Right jugular catheter terminates in the right atrium. This remains unchanged. Small bilateral pleural effusions and cardiomegaly persist. There is right greater than left interstitial/vascular thickening and perihilar hazy airspace opacities. This consistent with moderate pulmonary edema. This is stable to slightly progressed compared to the prior study. IMPRESSION: Stable to slight progression of the moderate pulmonary edema and small bilateral pleural effusions. ACT 112: Negative or not required by law. Electronically signed by: Alexandro Anaya M.D. 06/14/2022 10:49 AM (1) Osteomyelitis Osteomyelitis location: unspecified site Osteomyelitis type: unspecified type Qualified Code(s): M86.9 - Osteomyelitis, unspecified
[2022-06-15] MEDS: COLLAGENASE OINT 30 GM TUBE EXT SCH (13:49)
[2022-06-15] MEDS: WARFARIN SOD 0.5 MG TAB PO SCH (15:55)
[2022-06-15] MEDS: GABAPENTIN 100 MG CAP PO SCH (19:52)
[2022-06-15] MEDS: rOPINIRole HCL 0.25 MG TABLET PO SCH (19:54)
[2022-06-15] MEDS: LANTUS PER UNIT CHARGE SQ SCH (21:17)
[2022-06-16] MEDS: LEVOTHYROXINE SODIUM 150 MCG TABLET PO SCH (06:15)
[2022-06-16] MEDS ORDERED: EPOETIN ALFA 20,000 UNITS/ML VIAL IV SCH (07:00)
[2022-06-16] MEDS ORDERED: SODIUM CHLORIDE 0.9% 1000ML 1,000 ML IV PRN (07:00)
[2022-06-16] MEDS: INSULIN ASPART PER UNIT SC SCH ×4 (07:49→20:57)
[2022-06-16] MEDS: traMADol HCL 50 MG TABLET PO PRN ×2 (07:50→17:51)
[2022-06-16] MEDS: MIDODRINE HCL 10 MG TAB PO SCH ×3 (07:51→18:29)
[2022-06-16 08:14] LABS: Hemoglobin 8.2 g/dl (12.0-16.0); Mean Corpuscular Hemoglobin 30.3 pg (25.0-34.0); Mean Corpuscular Hgb Conc 30.4 g/dL (32.0-36.0); Mean Corpuscular Volume 99.6 fL (80.0-100.0); Mean Platelet Volume 10.5 fL (9.4-12.3); Nucleated RBC # (auto) 0.02 K/uL (0-0); Nucleated RBC % (auto) 0.1 %; Platelet Count 204 K/uL (130-400); RDW Coefficient of Variation 20.9 % (11.5-14.5); RDW Standard Deviation 74.3 fL (36.4-46.3); Red Blood Count 2.71 M/uL (3.93-5.22); White Blood Count 14.74 K/ul (4.8-10.8)
[2022-06-16 08:27] LABS: INR 1.8 (0.9-1.1); Prothrombin Time 18.8 Seconds (9.0-12.0)
[2022-06-16 09:10] LABS: BUN Creatinine Ratio 9.2 (10-20); Calcium 8.7 mg/dl (8.5-10.1); Creatinine Clr Calc Pharmacy 15.6 ml/min; Est GFR (African American) 14.4 ml/min; Est GFR (Non-African American) 12.4 ml/min; Potassium 4.6 mmol/L (3.5-5.1)
--- NOTE | 2022-06-16 10:20 | Pharmacy Report ---
Pharmacy Glycemic Short Note 2 - Date of Service June 16, 2022 - Glycemic Short BSG Results (Last 24 hours): 06/15/22 06/15/22 06/15/22 11:09 16:24 20:14 Glucose POC Glucose 154 H 93 107 H 06/16/22 06/16/22 07:01 07:33 Glucose 178 H POC Glucose 199 H OUTPATIENT ANTIDIABETIC REGIMEN: * Basaglar 42 units HS - reports following [facility] * Patient is also to be taking Trulicity and Novolog but does not. Has been discharged from the [facility] clinic due to failure to respond. * HbA1c = 5.9% (05/15/22) * However, this result is likely somewhat unreliable in ESRD patients d/t interactions between the A1c analyzing technique and high levels of urea in ESRD, reduced RBC life span, iron deficiency anemia, and EPO administration. HbA1c > 7.5% in ESRD patient may overestimate the extent of hyperglycemia in ESRD patients. ASSESSMENT: 06/16: * Fasting blood sugar elevated at 199mg/dl - usually at goal, will not make any changes in basal until consistently elevated * Blood sugars at goal all day yesterday, no changes in insulin at this time * Patient continues IV Daptomycin for sacral osteo 06/14: * Patient received total of 23 units of insulin yesterday, of which 12 units were basal * Fasting BSG 155 mg/dL - appropriate, continue same basal insulin * RN called this morning as patient going to dialysis - Dialysis requesting we hold correctional insulin due to concerns for blood sugars dropping while at dialysis 06/10: * Patient received total of 36 units of insulin yesterday; 12 units basal + 24 units bolus. * BSGs yesterday were [phone] mg/dl. Patient had refused basal insulin dose the day prior but BSGs were not too badly elevated. She had also got Hemo-dialysis yesterday. * Fasting BSG today was 150 mg/dl. Continued with basal insulin 12 units at HS. * Patient made NPO this morning for surgical debridement of sacral necrotic wound. * Continued Novolog parameters the same since post prandial BSGs have been fairly well controlled with current parameters. 06/07: * BSGs have been reasonable over past 72 hours, although episode of hypoglycemia noted yesterday AM (65 mg/dL) * Basal insulin reduced yesterday in response to low * Fasting BSG trending up today following reduced dose, will increase slightly this evening * Hemodialysis scheduled for today 06/03: * Received 33 units of insulin yesterday - 16 units basal + 17 units bolus. BSGs were elevated: 147-235-316 mg/dL. * Fasting BSG a little below goal today at 99 mg/dL. Will decrease basal this evening slightly. * No change to Novolog. Hyperglycemia last evening likely secondary to dialysis and no lunch coverage. 06/02: * Leny received 39 units of insulin yesterday - 16 units basal + 23 units bolus. BSGs controlled: 479-996-202-150 mg/dL. * Fasting BSG acceptable at 147 mg/dL today. Dialysis today. * No changes to regimen necessary. 05/31: * Patient received 38 units of insulin yesterday - 16 units basal + 22 units bolus. BSGs controlled: 81-21-748-196 mg/dL. * Fasting BSG acceptable at 159 mg/dL this morning. No change to basal. * Will tighten carb ratio slightly this morning secondary to BSGs trending up throughout the day. 05/30: * Leny received a total of 54 units of insulin yesterday (20 units basal + 34 units bolus). BSGs were elevated: 142-43-105-375-288 mg/dL. * According to RN, patient did supply the patient with some fast food from outside the hospital last evening. These uncovered carbs likely led to hyperglycemia at bedtime. * Fasting BSG was significantly lower than any of the previous days at 81 mg/dL. Unsure if this was due to basal increase yesterday or large Novolog doses stacking at bedtime and midnight. * Regardless, will decrease basal by 20% today. * No change to Novolog. PLAN FOR INPATIENT GLYCEMIC CONTROL: * Basal insulin * Lantus 12 units SC HS * Bolus insulin * NovoLog per scale ACHS * Goal Range: Low 110 mg/dL - High 140 mg/dL * Correction Factor: 20 mg/dL/unit * Nutritional / Prandial insulin per carb ratio of 1 unit per 6 grams CHO consumed
--- NOTE | 2022-06-16 13:40 | Nephrology Progress Note ---
Date of Service June 16, 2022 Assessment & Plan Admission and Anticipated Discharge Date Admission Date: May 14, 2022 Subjective Assessment & Plan (1) End-stage renal disease (ESRD): Plan: ESRD MWF at [facility] via dialysis catheter historically -cont aggressive epo w/ HD Continues to have massive edema despite frequent dialysis. Dialysis today and again tomorrow. Will need at least 4 days a week. Fluid limit 1200 per day (2) Osteomyelitis: Plan: -S/p surgical debridement - Continue Daptomycin renally dosed Subjective Seen for ESRD. Legs are swollen. Review of Systems Review of Systems: All other systems were reviewed and negative except as noted in HPI Physical Exam Physical Exam: General exam: Appears comfortable, no acute distress HEENT: Pupils are equal and reactive to light Neck: No JVD, neck is supple trachea is midline Respiratory system: Clear breath sounds bilaterally. Gastrointestinal: Abdomen is soft, non distended, non tender, bowel sounds are present CVS: Regular rate and rhythm. No murmurs, rubs or gallops Musculoskeletal: No joint or muscle tenderness Extremities: Non tender, 1+ edema, peripheral pulses are present Neuro: Oriented, no tremors, no focal neurological deficits Skin: No rashes Results & Data ([facility]) Vital Signs (Past 12 Hours) Vital Signs Temp Pulse Pulse Pulse Resp BP BP 06/16/22 13:00 89 85/45 L 06/16/22 12:30 86 84/44 L 06/16/22 12:00 84 81/29 L 06/16/22 13:29 37.2 C 85 88/50 L 06/16/22 11:30 86 83/41 L 06/16/22 11:00 88 81/42 L 06/16/22 10:30 91 H 76/35 L 06/16/22 10:00 91 H 75/36 L 06/16/22 09:45 93 H 81/36 L 06/16/22 09:39 37.3 C 93 H 06/16/22 07:04 37.3 C 94 H 18 119/55 L 06/16/22 02:44 37.4 C 90 20 90/55 L Pulse Ox O2 Del Method O2 Flow Rate 06/16/22 13:00 06/16/22 12:30 06/16/22 12:00 06/16/22 13:29 06/16/22 11:30 06/16/22 11:00 06/16/22 10:30 06/16/22 10:00 06/16/22 09:45 06/16/22 09:39 06/16/22 07:04 98 Nasal Cannula 2 06/16/22 02:44 98 Nasal Cannula 2
[2022-06-16] MEDS: HYDROmorphone INJ 0.5 MG/0.5 ML SYR IV PRN (14:42)
[2022-06-16] MEDS: FLUTICASONE PROPIONATE NA SPR 16 GM BTL SCH (14:42)
[2022-06-16] MEDS: ADVANCED PROBIOTIC 1250 MG CAPSULE PO SCH (14:43)
[2022-06-16] MEDS: AMIODARONE 200 MG TAB PO SCH (14:43)
[2022-06-16] MEDS: COLLAGENASE OINT 30 GM TUBE EXT SCH (14:43)
[2022-06-16] MEDS: BRIMONIDINE TARTRATE 0.2% 5ML OP SCH ×2 (14:43→19:36)
[2022-06-16] MEDS: NEPHROCAPS PO SCH ×2 (14:44→19:37)
[2022-06-16] MEDS: DAPTOmycin 550 MG in SYRINGE 0 ML IV SCH (15:32)
[2022-06-16] MEDS: WARFARIN SOD 0.5 MG TAB PO SCH (15:32)
[2022-06-16] MEDS ORDERED: WARFARIN SOD 1 MG TAB PO STA (16:54)
--- NOTE | 2022-06-16 16:55 | Hospitalist Progress Note ---
Date of Service June 16, 2022 Assessment & Plan (1) Osteomyelitis: Plan: per Dr. Babin's notes with addendum: Sacral Wound Osteomyelitis ( Biopsy confirmed on 06/10) Has undergone multiple debridement; last one in 06/10/2022. Had wound VAC placed but got dislodged. Currently on daily dressing. Sacral Wound Grew: Enterococcus VRE on 05/27/2022 Source likely stage IV sacral ulcer with likely underlying osteomyelitis Initially was on broad spectrum abx with intravenous cefepime, daptomycin and oral fluconazole S/P debridement of sacral ulcer with bone biopsy on 05/27/2022 and repeat debridement 06/10 Evaluated by surgery and ID- recommendations noted Plan: Discussed over the phone with infectious disease (Dr. Mclean) over the phone on 06/14. Reviewed pathology and microbiology with him over the phone. He suggested daptomycin for 3 more weeks. However, given the extent of her sacral wound; infection control is difficult. Recommend aggressive wound care. Discussed with family at bedside; they do not want her to go to [facility]. Would prefer her to go to [facility]. We will continue aggressive wound care daily while inpatient. . Appreciate surgery recommendation. 06/16 stable overall discussed with ID today, still recommending Daptomycin IV x 3 weeks PRN pain medications Adjustment disorder with depressed mood Appreciate psychiatrist input and recommendation Vitamin B12, folate and TSH are normal stable (2) Anemia: Plan: Chronic anemia in the setting of ESRD and GI losses (reported but not observed) and phlebotomy Was reportedly getting ?EPO injections with HD per Patient - continue EPO per renal No signs of active bleeding Positive FOBT S/P PRBCs during HD Monitor CBC: Hg 8.1 --> 8.2 (3) Osteomyelitis: Plan: (4) New onset atrial fibrillation: Plan: On amiodarone 200mg once daily. On Coumadin 1.5mg. INR is 1.8 today. -- additionatl Coumadin 1mg today (5) Ulcer of sacral region, stage 4: Plan: plan as above. (6) Radiation necrosis of skin and subcutaneous: Plan: - plan as above (7) Acute hyponatremia: Plan: - likely due to sepsis and decrease po intake Sodium level stable Monitor (8) End-stage renal disease (ESRD): Plan: Has been on HD for the past year, per patient Normal HD schedule MWF Continue hemodialysis as per Nephrology (9) Diabetes: Plan: Continue insulin per protocol (10) Hypothyroid: Plan: TSH 22, FT4 <0.25 unclear if patient taking medication appropriately TSH normalized with restarting levothyroxine (11) Thrombocytopenia: Plan: unclear chronicity likely consumption in sepsis, ESRD, chronic illness no signs of bleeding Monitor (12) Coagulopathy: Plan: Monitor INR: 9.6>3.1>2.7>3.6->3.4->2.1->2 > 2.5> 2.1> 1.8 No obvious bleeding issues continue coumadin- recheck INR in am Plan DVT px:coumadin Dispo- Debridement on 06/10;awaiting placement to SNF Code Status: DNI/DNR Admission and Anticipated Discharge Date Admission Date: May 14, 2022 Subjective ff up for sacral OM, etc seen resting in bed, sitting up had HD this morning feels fine overall except for back pain- relieved by pain medication no other symptoms Review of Systems Review of Systems: all noted and negative except for above Physical Exam Physical Exam: General- oriented x 3, not in distress, speaks in sentences with no effort or accessory muscle use Eyes- anicteric Neck- no JVD Lungs- clear breath sounds bilaterally, no rales/wheezes Heart- normal rate, regular rhythm; no murmurs Abdomen- normal bowel sounds, nondistended, soft, nontender Extremities- no pretibial edema, no calf tenderness Neuro- alert, oriented x 3; no gross focal neurologic deficits Skin- warm & dry Results & Data Results & Data ([facility]) Vital Signs (Past 12 Hours) Vital Signs Temp Pulse Pulse Pulse Resp BP BP 06/16/22 15:42 36.8 C 91 H 19 90/58 L 06/16/22 14:49 18 85/52 L 06/16/22 13:44 36.6 C 88 19 85/53 L 06/16/22 13:00 89 85/45 L 06/16/22 12:30 86 84/44 L 06/16/22 12:00 84 81/29 L 06/16/22 13:29 37.2 C 85 88/50 L 06/16/22 11:30 86 83/41 L 06/16/22 11:00 88 81/42 L 06/16/22 10:30 91 H 76/35 L 06/16/22 10:00 91 H 75/36 L 06/16/22 09:45 93 H 81/36 L 06/16/22 09:39 37.3 C 93 H 06/16/22 07:04 37.3 C 94 H 18 119/55 L Pulse Ox O2 Del Method O2 Flow Rate 06/16/22 15:42 98 Nasal Cannula 2 06/16/22 14:49 06/16/22 13:44 99 Nasal Cannula 2 06/16/22 13:00 06/16/22 12:30 06/16/22 12:00 06/16/22 13:29 06/16/22 11:30 06/16/22 11:00 06/16/22 10:30 06/16/22 10:00 06/16/22 09:45 06/16/22 09:39 06/16/22 07:04 98 Nasal Cannula 2 all noted and reviewed including below (1) Osteomyelitis Osteomyelitis location: unspecified site Osteomyelitis type: unspecified type Qualified Code(s): M86.9 - Osteomyelitis, unspecified
[2022-06-16] MEDS: diphenhydrAMINE Capsule 25 MG CAP PO PRN (19:36)
[2022-06-16] MEDS: GABAPENTIN 100 MG CAP PO SCH (19:37)
[2022-06-16] MEDS: rOPINIRole HCL 0.25 MG TABLET PO SCH (19:37)
[2022-06-16] MEDS: LANTUS PER UNIT CHARGE SQ SCH (20:57)
[2022-06-16] MEDS ORDERED: ALBUMIN 25% 100 mL 25 GM/100 ML VIAL IV ONE (23:40)
[2022-06-17] MEDS: LEVOTHYROXINE SODIUM 150 MCG TABLET PO SCH (05:45)
[2022-06-17 06:34] LABS: Hematocrit (blood only) 25.4 % (34.1-44.9); Hemoglobin 7.9 g/dl (12.0-16.0); Mean Corpuscular Hemoglobin 31.1 pg (25.0-34.0); Mean Corpuscular Hgb Conc 31.1 g/dL (32.0-36.0); Mean Platelet Volume 10.3 fL (9.4-12.3); Nucleated RBC # (auto) 0.04 K/uL (0-0); Nucleated RBC % (auto) 0.3 %; Platelet Count 178 K/uL (130-400); RDW Coefficient of Variation 20.9 % (11.5-14.5); RDW Standard Deviation 74.7 fL (36.4-46.3); Red Blood Count 2.54 M/uL (3.93-5.22); White Blood Count 13.21 K/ul (4.8-10.8)
[2022-06-17] MEDS ORDERED: HEPARIN SOD (PORCINE) 1000 UNIT/ML IV ONE (07:00)
[2022-06-17] MEDS ORDERED: SODIUM CHLORIDE 0.9% 1000ML 1,000 ML IV PRN (07:00)
[2022-06-17 07:10] LABS: BUN Creatinine Ratio 8.5 (10-20); Calcium 8.7 mg/dl (8.5-10.1); Creatinine Clr Calc Pharmacy 23.7 ml/min; Est GFR (African American) 23.7 ml/min; Est GFR (Non-African American) 20.5 ml/min; Potassium 3.8 mmol/L (3.5-5.1)
[2022-06-17] MEDS: INSULIN ASPART PER UNIT SC SCH ×4 (07:58→21:47)
[2022-06-17] MEDS: ADVANCED PROBIOTIC 1250 MG CAPSULE PO SCH (08:30)
[2022-06-17] MEDS: AMIODARONE 200 MG TAB PO SCH (08:30)
[2022-06-17] MEDS: NEPHROCAPS PO SCH ×2 (08:30→20:49)
[2022-06-17] MEDS: traMADol HCL 50 MG TABLET PO PRN ×2 (08:30→18:12)
[2022-06-17] MEDS: MIDODRINE HCL 10 MG TAB PO SCH ×3 (08:30→17:08)
[2022-06-17] MEDS: COLLAGENASE OINT 30 GM TUBE EXT SCH (08:31)
[2022-06-17] MEDS: FLUTICASONE PROPIONATE NA SPR 16 GM BTL SCH (08:31)
[2022-06-17] MEDS: BRIMONIDINE TARTRATE 0.2% 5ML OP SCH ×2 (08:31→20:50)
[2022-06-17 10:09] LABS: INR 1.9 (0.9-1.1); Prothrombin Time 19.2 Seconds (9.0-12.0)
--- NOTE | 2022-06-17 12:29 | Pharmacy Report ---
Pharmacy Glycemic Short Note 2 - Date of Service June 17, 2022 - Glycemic Short BSG Results (Last 24 hours): 06/16/22 06/16/22 06/16/22 13:41 16:25 20:29 Glucose POC Glucose 125 H 263 H 293 H 06/16/22 06/17/22 06/17/22 23:45 06:23 07:36 Glucose 191 H POC Glucose 210 H 189 H 06/17/22 11:39 Glucose POC Glucose 155 H OUTPATIENT ANTIDIABETIC REGIMEN: * Basaglar 42 units HS - reports following [facility] clinic * Patient is also to be taking Trulicity and Novolog but does not. Has been discharged from the [facility] clinic due to failure to respond. * HbA1c = 5.9% (05/15/22) * However, this result is likely somewhat unreliable in ESRD patients d/t interactions between the A1c analyzing technique and high levels of urea in ESRD, reduced RBC life span, iron deficiency anemia, and EPO administration. HbA1c > 7.5% in ESRD patient may overestimate the extent of hyperglycemia in ESRD patients. ASSESSMENT: 06/17: * Fasting blood sugar elevated at 191mg/dl - increase basal slightly * Blood sugars above goal after HD, tighten CF/CR as pt is scheduled for HD again today * Will try to empirically loosen CF/CR on non-HD days 06/16: * Fasting blood sugar elevated at 199mg/dl - usually at goal, will not make any changes in basal until consistently elevated * Blood sugars at goal all day yesterday, no changes in insulin at this time * Patient continues IV Daptomycin for sacral osteo 06/14: * Patient received total of 23 units of insulin yesterday, of which 12 units were basal * Fasting BSG 155 mg/dL - appropriate, continue same basal insulin * RN called this morning as patient going to dialysis - Dialysis requesting we hold correctional insulin due to concerns for blood sugars dropping while at dialysis 06/10: * Patient received total of 36 units of insulin yesterday; 12 units basal + 24 units bolus. * BSGs yesterday were 430-755-439-196 mg/dl. Patient had refused basal insulin dose the day prior but BSGs were not too badly elevated. She had also got Hemo-dialysis yesterday. * Fasting BSG today was 150 mg/dl. Continued with basal insulin 12 units at HS. * Patient made NPO this morning for surgical debridement of sacral necrotic wound. * Continued Novolog parameters the same since post prandial BSGs have been fairly well controlled with current parameters. 06/07: * BSGs have been reasonable over past 72 hours, although episode of hypoglycemia noted yesterday AM (65 mg/dL) * Basal insulin reduced yesterday in response to low * Fasting BSG trending up today following reduced dose, will increase slightly this evening * Hemodialysis scheduled for today 06/03: * Received 33 units of insulin yesterday - 16 units basal + 17 units bolus. BSGs were elevated: 147-235-316 mg/dL. * Fasting BSG a little below goal today at 99 mg/dL. Will decrease basal this evening slightly. * No change to Novolog. Hyperglycemia last evening likely secondary to dialysis and no lunch coverage. 06/02: * Leny received 39 units of insulin yesterday - 16 units basal + 23 units bolus. BSGs controlled: 387-833-211-150 mg/dL. * Fasting BSG acceptable at 147 mg/dL today. Dialysis today. * No changes to regimen necessary. 05/31: * Patient received 38 units of insulin yesterday - 16 units basal + 22 units bolus. BSGs controlled: 47-67-152-196 mg/dL. * Fasting BSG acceptable at 159 mg/dL this morning. No change to basal. * Will tighten carb ratio slightly this morning secondary to BSGs trending up throughout the day. 05/30: * Leny received a total of 54 units of insulin yesterday (20 units basal + 34 units bolus). BSGs were elevated: 300-25-594-375-288 mg/dL. * According to RN, patient did supply the patient with some fast food from outside the hospital last evening. These uncovered carbs likely led to hyperglycemia at bedtime. * Fasting BSG was significantly lower than any of the previous days at 81 mg/dL. Unsure if this was due to basal increase yesterday or large Novolog doses stacking at bedtime and midnight. * Regardless, will decrease basal by 20% today. * No change to Novolog. PLAN FOR INPATIENT GLYCEMIC CONTROL: * Basal insulin * Lantus 14 units SC HS * Bolus insulin * NovoLog per scale ACHS * Goal Range: Low 110 mg/dL - High 140 mg/dL * Correction Factor: 15 mg/dL/unit * Nutritional / Prandial insulin per carb ratio of 1 unit per 5 grams CHO consumed
--- NOTE | 2022-06-17 14:51 | Nephrology Progress Note ---
Date of Service June 17, 2022 Assessment & Plan Admission and Anticipated Discharge Date Admission Date: May 14, 2022 Subjective Subjective Assessment & Plan (1) End-stage renal disease (ESRD): Plan: ESRD MWF at [facility] via dialysis catheter historically -cont aggressive epo w/ HD Continues to have massive edema despite frequent dialysis. Dialysis and then again Tuesday. Will need at least 4 days a week. UF limited by low BP despite Midodrine Fluid limit 1200 per day--also need to include icechips (2) Osteomyelitis: Plan: -S/p surgical debridement - Continue Daptomycin renally dosed Subjective Seen for ESRD. Legs are swollen.BP drops with Dialysis and even usually low BP Review of Systems Review of Systems: All other systems were reviewed and negative except as noted in HPI Physical Exam Physical Exam: General exam: Appears comfortable, no acute distress HEENT: Pupils are equal and reactive to light Neck: No JVD, neck is supple trachea is midline Respiratory system: Clear breath sounds bilaterally. Gastrointestinal: Abdomen is soft, non distended, non tender, bowel sounds are present CVS: Regular rate and rhythm. No murmurs, rubs or gallops Musculoskeletal: No joint or muscle tenderness Extremities: Non tender, 2+ edema, peripheral pulses are present Neuro: Oriented, no tremors, no focal neurological deficits Skin: No rashes Results & Data ([facility]) Vital Signs (Past 12 Hours) Vital Signs Temp Pulse Pulse Resp BP Pulse Ox O2 Del Method 06/17/22 07:00 87 06/17/22 07:13 37.2 C 92 H 18 82/49 L 98 Nasal Cannula 06/17/22 02:58 36.7 C 82 18 84/47 L 100 Nasal Cannula O2 Flow Rate 06/17/22 07:00 06/17/22 07:13 2 06/17/22 02:58 2
[2022-06-17] MEDS: WARFARIN SOD 0.5 MG TAB PO SCH (17:08)
[2022-06-17] MEDS ORDERED: WARFARIN SOD 1 MG TAB PO STA (17:11)
--- NOTE | 2022-06-17 17:59 | Hospitalist Progress Note ---
Date of Service June 17, 2022 Assessment & Plan (1) Sacral osteomyelitis: Plan (1) Osteomyelitis: Plan: per Dr. Babin's notes with addendum: Sacral Wound Osteomyelitis ( Biopsy confirmed on 06/10) Has undergone multiple debridement; last one in 06/10/2022. Had wound VAC placed but got dislodged. Currently on daily dressing. Sacral Wound Grew: Enterococcus VRE on 05/27/2022 Source likely stage IV sacral ulcer with likely underlying osteomyelitis Initially was on broad spectrum abx with intravenous cefepime, daptomycin and oral fluconazole S/P debridement of sacral ulcer with bone biopsy on 05/27/2022 and repeat debridement 06/10 Evaluated by surgery and ID- recommendations noted Plan: Discussed over the phone with infectious disease (Dr. Mclean) over the phone on 06/14. Reviewed pathology and microbiology with him over the phone. He suggested daptomycin for 3 more weeks. However, given the extent of her sacral wound; infection control is difficult. Recommend aggressive wound care. Discussed with family at bedside; they do not want her to go to [facility]. Would prefer her to go to [facility]. We will continue aggressive wound care daily while inpatient. . Appreciate surgery recommendation. 06/17 stable overall continue Daptomycin IV PRN pain medications Adjustment disorder with depressed mood Appreciate psychiatrist input and recommendation Vitamin B12, folate and TSH are normal stable (2) Anemia: Plan: Chronic anemia in the setting of ESRD and GI losses (reported but not observed) and phlebotomy Was reportedly getting ?EPO injections with HD per Patient - continue EPO per renal No signs of active bleeding Positive FOBT S/P PRBCs during HD Monitor CBC: Hg 8.1 --> 8.2 (3) Osteomyelitis: Plan: (4) New onset atrial fibrillation: Plan: On amiodarone 200mg once daily. On Coumadin 1.5mg. INR is 1.9 today. -- additional Coumadin 1mg today (5) Ulcer of sacral region, stage 4: Plan: - plan as above. (6) Radiation necrosis of skin and subcutaneous: Plan: - plan as above (7) Acute hyponatremia: Plan: - likely due to sepsis and decrease po intake Sodium level stable Monitor (8) End-stage renal disease (ESRD): Plan: Has been on HD for the past year, per patient Normal HD schedule MWF Continue hemodialysis as per Nephrology (9) Diabetes: Plan: Continue insulin per protocol (10) Hypothyroid: Plan: TSH 22, FT4 <0.25 unclear if patient taking medication appropriately TSH normalized with restarting levothyroxine (11) Thrombocytopenia: Plan: unclear chronicity likely consumption in sepsis, ESRD, chronic illness no signs of bleeding Monitor (12) Coagulopathy: Plan: Monitor INR: 9.6>3.1>2.7>3.6->3.4->2.1->2 > 2.5> 2.1> 1.8 No obvious bleeding issues continue coumadin- recheck INR in am Plan DVT px:coumadin Dispo- Debridement on 06/10;awaiting placement to SNF Code Status: DNI/DNR Admission and Anticipated Discharge Date Admission Date: May 14, 2022 Subjective Follow-up for sacral osteomyelitis, etc. Seen resting in bed, comfortable, not in distress States she has back pain Relieved by analgesics no chest pain, dyspnea, palpitations, dizziness no nausea/vomiting No other symptoms Review of Systems Review of Systems: all noted and negative except for above Physical Exam Physical Exam: General- oriented x 3, not in distress, speaks in sentences with no effort or accessory muscle use Eyes- anicteric Neck- no JVD Lungs- clear BS bilaterally, no rales/wheezes Heart- normal rate, regular rhythm; no murmurs Abdomen- normal bowel sounds, nondistended, soft, nontender Extremities- (+) BL LE edema Neuro- alert, oriented x 3; no gross focal neurologic deficits Skin- warm & dry Results & Data Results & Data ([facility]) Vital Signs (Past 12 Hours) Vital Signs Temp Pulse Pulse Resp BP Pulse Ox O2 Del Method 06/17/22 16:28 36.6 C 91 H 16 106/54 L 97 Nasal Cannula 06/17/22 15:00 88 06/17/22 07:00 87 06/17/22 07:13 37.2 C 92 H 18 82/49 L 98 Nasal Cannula O2 Flow Rate 06/17/22 16:28 2 06/17/22 15:00 06/17/22 07:00 06/17/22 07:13 2
[2022-06-17] MEDS: rOPINIRole HCL 0.25 MG TABLET PO SCH (20:49)
[2022-06-17] MEDS: GABAPENTIN 100 MG CAP PO SCH (20:50)
[2022-06-17] MEDS: POLYETHYLENE (MIRALAX) 17 GM PACK PO PRN (21:29)
[2022-06-17] MEDS: diphenhydrAMINE Capsule 25 MG CAP PO PRN (21:29)
[2022-06-17] MEDS: HYDROmorphone INJ 0.5 MG/0.5 ML SYR IV PRN (21:29)
[2022-06-17] MEDS: LANTUS PER UNIT CHARGE SQ SCH (21:47)
[2022-06-17] MEDS: LATANOPROST 0.005% OP SOLN 2.5 ML BTL OPB SCH (21:48)
[2022-06-18] MEDS: LEVOTHYROXINE SODIUM 150 MCG TABLET PO SCH (06:06)
[2022-06-18] MEDS ORDERED: SODIUM CHLORIDE 0.9% 1000ML 1,000 ML IV PRN (07:00)
[2022-06-18] MEDS ORDERED: HEPARIN SOD (PORCINE) 1000 UNIT/ML IV SCH (07:00)
[2022-06-18] MEDS ORDERED: EPOETIN ALFA 20,000 UNITS/ML VIAL IV SCH (07:00)
[2022-06-18 07:55] LABS: INR 1.9 (0.9-1.1); Prothrombin Time 19.2 Seconds (9.0-12.0)
[2022-06-18] MEDS: INSULIN ASPART PER UNIT SC SCH ×4 (08:01→21:15)
[2022-06-18] MEDS: MIDODRINE HCL 10 MG TAB PO SCH ×3 (08:06→17:31)
[2022-06-18] MEDS: BRIMONIDINE TARTRATE 0.2% 5ML OP SCH ×2 (08:06→20:38)
[2022-06-18] MEDS: traMADol HCL 50 MG TABLET PO PRN ×2 (08:06→20:36)
[2022-06-18] MEDS: ADVANCED PROBIOTIC 1250 MG CAPSULE PO SCH (08:06)
[2022-06-18] MEDS: COLLAGENASE OINT 30 GM TUBE EXT SCH (08:07)
[2022-06-18] MEDS: NEPHROCAPS PO SCH ×2 (08:07→20:37)
[2022-06-18] MEDS: FLUTICASONE PROPIONATE NA SPR 16 GM BTL SCH (08:07)
[2022-06-18] MEDS: AMIODARONE 200 MG TAB PO SCH (08:07)
--- NOTE | 2022-06-18 10:45 | Dialysis Progress Note ---
Date of Service June 18, 2022 Assessment & Plan Admission and Anticipated Discharge Date Admission Date: May 14, 2022 Subjective Assessment & Plan (1) End-stage renal disease (ESRD): Plan: ESRD MWF at [facility] via dialysis catheter historically -cont aggressive epo w/ HD Continues to have massive edema despite frequent dialysis. Dialysis tuesday and then again Tuesday. Will need at least 4 days a week. UF limited by low BP despite Midodrine Fluid limit 1200 per day--also need to include ice chips. She is having lot of this--told her to limit (2) Osteomyelitis: Plan: -S/p surgical debridement - Continue Daptomycin renally dosed Subjective Seen for ESRD. Legs are swollen.BP drops with Dialysis and even usually low BP Review of Systems Review of Systems: All other systems were reviewed and negative except as noted in HPI Physical Exam Physical Exam: General exam: Appears comfortable, no acute distress HEENT: Pupils are equal and reactive to light Neck: No JVD, neck is supple trachea is midline Respiratory system: Clear breath sounds bilaterally. Gastrointestinal: Abdomen is soft, non distended, non tender, bowel sounds are present CVS: Regular rate and rhythm. No murmurs, rubs or gallops Musculoskeletal: No joint or muscle tenderness Extremities: Non tender, 2+ edema, peripheral pulses are present Neuro: Oriented, no tremors, no focal neurological deficits Skin: No rashes Results & Data ([facility]) Vital Signs (Past 12 Hours) Vital Signs Temp Pulse Pulse Pulse Resp BP BP 06/18/22 10:00 91 H 88/48 L 06/18/22 09:30 94 H 91/48 L 06/18/22 09:15 92 H 88/44 L 06/18/22 09:08 37 C 94 H 06/18/22 07:00 89 06/18/22 08:00 37 C 97 H 20 92/57 L 06/18/22 03:15 36.9 C 87 16 81/50 L 06/17/22 23:11 37.5 C 81 14 91/55 L Pulse Ox O2 Del Method O2 Flow Rate 06/18/22 10:00 06/18/22 09:30 06/18/22 09:15 06/18/22 09:08 06/18/22 07:00 06/18/22 08:00 92 Room Air 08/26/22 03:15 97 Nasal Cannula 2 06/17/22 23:11 98 Nasal Cannula 2
[2022-06-18] MEDS: HYDROmorphone INJ 0.5 MG/0.5 ML SYR IV PRN ×2 (11:31→17:55)
[2022-06-18] MEDS: DAPTOmycin 800 MG in SYRINGE 0 ML IV SCH (15:18)
--- NOTE | 2022-06-18 16:41 | Hospitalist Progress Note ---
Date of Service June 18, 2022 Assessment & Plan (1) Sacral osteomyelitis: Plan Plan (1) Osteomyelitis: Plan: per Dr. Babin's notes with addendum: Sacral Wound Osteomyelitis ( Biopsy confirmed on 06/10) Has undergone multiple debridement; last one in 06/10/2022. Had wound VAC placed but got dislodged. Currently on daily dressing. Sacral Wound Grew: Enterococcus VRE on 05/27/2022 Source likely stage IV sacral ulcer with likely underlying osteomyelitis Initially was on broad spectrum abx with intravenous cefepime, daptomycin and oral fluconazole S/P debridement of sacral ulcer with bone biopsy on 05/27/2022 and repeat debri viviana 06/10 Evaluated by surgery and ID- recommendations noted Plan: Discussed over the phone with infectious disease (Dr. Mclean) over the phone on 06/14. Reviewed pathology and microbiology with him over the phone. He suggested daptomycin for 3 more weeks. However, given the extent of her sacral wound; infection control is difficult. Recommend aggressive wound care. Discussed with family at bedside; they do not want her to go to [facility]. Would prefer her to go to [facility]. We will continue aggressive wound care daily while inpatient. . Appreciate surgery recommendation. 06/18 stable overall continue Daptomycin IV PRN pain medications Adjustment disorder with depressed mood Appreciate psychiatrist input and recommendation Vitamin B12, folate and TSH are normal stable (2) Anemia: Plan: Chronic anemia in the setting of ESRD and GI losses (reported but not observed) and phlebotomy Was reportedly getting ?EPO injections with HD per Patient - continue EPO per renal No signs of active bleeding Positive FOBT S/P PRBCs during HD Monitor CBC: Hg 8.1 --> 8.2 (3) Osteomyelitis: Plan: (4) New onset atrial fibrillation: Plan: On amiodarone 200mg once daily. On Coumadin 1.5mg. INR is 1.9 today. -- additional Coumadin 1.5 mg today (5) Ulcer of sacral region, stage 4: Plan: - plan as above. (6) Radiation necrosis of skin and subcutaneous: Plan: - plan as above (7) Acute hyponatremia: Plan: - likely due to sepsis and decrease po intake Sodium level stable Monitor (8) End-stage renal disease (ESRD): Plan: Has been on HD for the past year, per patient Normal HD schedule MWF Continue hemodialysis as per Nephrology (9) Diabetes: Plan: Continue insulin per protocol (10) Hypothyroid: Plan: TSH 22, FT4 <0.25 unclear if patient taking medication appropriately TSH normalized with restarting levothyroxine (11) Thrombocytopenia: Plan: unclear chronicity likely consumption in sepsis, ESRD, chronic illness no signs of bleeding Monitor (12) Coagulopathy: Plan: Monitor INR: 9.6>3.1>2.7>3.6->3.4->2.1->2 > 2.5> 2.1> 1.8 No obvious bleeding issues continue coumadin- recheck INR in am Plan DVT px:coumadin Dispo- Debridement on 06/10;awaiting placement to SNF Code Status: DNI/DNR Admission and Anticipated Discharge Date Admission Date: May 14, 2022 Subjective Follow-up for sacral osteomyelitis, etc. Seen sitting up in bed, comfortable, having lunch Status post hemodialysis States she feels about the same, still having back pain No shortness of breath no chest pain, palpitations, dizziness No other symptoms Review of Systems Review of Systems: all noted and negative except for above Physical Exam Physical Exam: General- oriented x 3, not in distress, speaks in sentences with no effort or accessory muscle use Eyes- anicteric Neck- no JVD Lungs- clear BS bilaterally, no rales/wheezes Heart- normal rate, regular rhythm; no murmurs Abdomen- normal bowel sounds, nondistended, soft, nontender Extremities-mild lower extremity edema, no calf tenderness Neuro- alert, oriented x 3; no gross focal neurologic deficits Skin- warm & dry Results & Data Results & Data ([facility]) Vital Signs (Past 12 Hours) Vital Signs Temp Pulse Pulse Resp BP BP Pulse Ox 06/18/22 12:58 36.9 C 89 102/53 L 06/18/22 12:30 85 86/45 L 06/18/22 12:00 84 78/54 L 06/18/22 11:30 88 87/49 L 06/18/22 11:00 87 90/49 L 06/18/22 10:30 90 86/51 L 06/18/22 10:00 91 H 88/48 L 06/18/22 09:30 94 H 91/48 L 06/18/22 09:15 92 H 88/44 L 08/26/22 09:08 37 C 94 H 06/18/22 07:00 89 06/18/22 08:00 37 C 97 H 20 92/57 L 92 O2 Del Method 06/18/22 12:58 06/18/22 12:30 06/18/22 12:00 06/18/22 11:30 06/18/22 11:00 06/18/22 10:30 06/18/22 10:00 06/18/22 09:30 06/18/22 09:15 06/18/22 09:08 06/18/22 07:00 06/18/22 08:00 Room Air all noted and reviewed including below
[2022-06-18] MEDS: WARFARIN SOD 0.5 MG TAB PO SCH (17:31)
[2022-06-18] MEDS: LATANOPROST 0.005% OP SOLN 2.5 ML BTL OPB SCH (20:36)
[2022-06-18] MEDS: diphenhydrAMINE Capsule 25 MG CAP PO PRN (20:36)
[2022-06-18] MEDS: GABAPENTIN 100 MG CAP PO SCH (20:37)
[2022-06-18] MEDS: rOPINIRole HCL 0.25 MG TABLET PO SCH (20:38)
[2022-06-18] MEDS: LANTUS PER UNIT CHARGE SQ SCH (21:16)
[2022-06-19] MEDS: LEVOTHYROXINE SODIUM 150 MCG TABLET PO SCH (05:47)
[2022-06-19] MEDS ORDERED: EPOETIN ALFA 20,000 UNITS/ML VIAL IV ONE (07:00)
[2022-06-19] MEDS ORDERED: SODIUM CHLORIDE 0.9% 1000ML 1,000 ML IV PRN (07:00)
[2022-06-19 07:23] LABS: INR 1.9 (0.9-1.1); Prothrombin Time 19.8 Seconds (9.0-12.0)
[2022-06-19] MEDS: MIDODRINE HCL 10 MG TAB PO SCH ×3 (08:05→17:28)
[2022-06-19] MEDS: NEPHROCAPS PO SCH ×2 (08:06→20:48)
[2022-06-19] MEDS: AMIODARONE 200 MG TAB PO SCH (08:06)
[2022-06-19] MEDS: ADVANCED PROBIOTIC 1250 MG CAPSULE PO SCH (08:06)
[2022-06-19] MEDS: FLUTICASONE PROPIONATE NA SPR 16 GM BTL SCH (08:07)
[2022-06-19] MEDS: BRIMONIDINE TARTRATE 0.2% 5ML OP SCH ×2 (08:07→20:45)
[2022-06-19] MEDS: INSULIN ASPART PER UNIT SC SCH ×4 (08:24→21:10)
[2022-06-19] MEDS: traMADol HCL 50 MG TABLET PO PRN (13:17)
[2022-06-19] MEDS: COLLAGENASE OINT 30 GM TUBE EXT SCH (14:01)
[2022-06-19] MEDS ORDERED: DAPTOmycin 250 MG in SYRINGE 0 ML IV SCH (16:00)
--- NOTE | 2022-06-19 17:19 | CT Scan Report ---
CT SCAN OF THE BRAIN WITHOUT IV CONTRAST CLINICAL HISTORY: Headache. COMPARISON STUDY: CT of the brain dated 11/17/2014. TECHNIQUE: Unenhanced axial CT scan of the brain is performed from the vertex to the skull base. A do se lowering technique was utilized adhering to the principles of ALARA. CT DOSE: 614.27 mGy.cm FINDINGS: Brain parenchyma: There is age-related involutional change noting mild subcortical and periventricula r microangiopathic disease. There is no hemorrhage, mass effect, or evidence of acute territorial isc hemia by CT criteria. Chatman-white matter differentiation is preserved. No extra-axial fluid collection is seen. Ventricles, sulci, cisterns: Prominent secondary to involutional change. Intracranial vasculature: There is atherosclerotic calcification of the cavernous carotid and vertebr al arteries. Calvarium: Unremarkable. Sinuses and mastoids: The visualized paranasal sinuses are clear. The mastoid air cells are well pneu matized. Orbits: The bony orbits are grossly intact. There are bilateral ocular lens implants. IMPRESSION: There is no hemorrhage, mass effect, or evidence of acute territorial ischemia by CT leydi goddard. ACT 112: Negative or not required by law. Electronically signed by: Deep Fontana M.D. 06/19/2022 5:17 PM
[2022-06-19] MEDS: WARFARIN SOD 0.5 MG TAB PO SCH (17:27)
--- NOTE | 2022-06-19 17:51 | Dialysis Progress Note ---
Date of Service June 19, 2022 Assessment & Plan (1) End-stage renal disease (ESRD): Plan: (1) End-stage renal disease (ESRD): Plan: ESRD MWF at [facility] via dialysis catheter historically -cont aggressive epo w/ HD Continues to have massive edema despite frequent dialysis. Dialysis tuesday and then again today. Will need at least 4 days a week. -Next HD will be Tuesday UF limited by low BP despite Midodrine Fluid limit 1200 per day--also need to include ice chips. She is having lot of this--told her to limit (2) Osteomyelitis: Plan: -S/p surgical debridement - Continue Daptomycin renally dose Waiting placement. (2) Osteomyelitis: Admission and Anticipated Discharge Date Admission Date: May 14, 2022 Subjective Seen while in dialysis, comfortable States she feels about the same, still having back pain No shortness of breath no chest pain, palpitations, dizziness Bilateral pedal edema Review of Systems Review of Systems: All systems reviewed & are unremarkable except as noted in HPI & below Physical Exam Physical Exam: General Appearance: Comfortable, No apparent distress Head: normocephalic, Atraumatic Eyes: normal inspection, EOMI Neck: supple, Trachea midline Respiratory/Chest: Decreased breath sounds, CTA, No accessory muscle use Cardiovascular: S1, S2, No murmur Abdomen/GI:Soft, abd distended, Non tender, Bowel sounds present Extremities/Musculoskeletal:normal inspection, +3 B/L LE edema Neurologic/Psych:AAOX3, grossly no focal neurological deficits Skin: normal color, warm Results & Data ([facility]) Vital Signs (Past 12 Hours) Vital Signs Temp Pulse Pulse Resp BP BP Pulse Ox 06/19/22 15:26 36.8 C 84 17 100/64 100 06/19/22 14:57 85 06/19/22 13:06 36.4 C L 83 16 85/51 L 99 06/19/22 12:42 37.0 C 78 91/50 L 06/19/22 12:30 60 104/44 L 06/19/22 12:00 75 78/49 L 06/19/22 11:30 75 69/43 L 06/19/22 11:00 59 L 70/42 L 06/19/22 10:30 61 77/32 L 06/19/22 10:00 84 89/50 L 06/19/22 09:38 84 89/50 L 06/19/22 09:35 36.5 C 84 06/19/22 07:33 36.9 C 84 20 86/58 L 100 06/19/22 07:00 88 O2 Del Method O2 Flow Rate 06/19/22 15:26 Nasal Cannula 3 06/19/22 14:57 06/19/22 13:06 Nasal Cannula 3 06/19/22 12:42 06/19/22 12:30 06/19/22 12:00 06/19/22 11:30 06/19/22 11:00 06/19/22 10:30 06/19/22 10:00 06/19/22 09:38 06/19/22 09:35 06/19/22 07:33 Nasal Cannula 2 06/19/22 07:00 Laboratory Results 06/17/22 06:23 06/17/22 06:23 (1) Osteomyelitis Osteomyelitis location: unspecified site Osteomyelitis type: unspecified type Qualified Code(s): M86.9 - Osteomyelitis, unspecified
[2022-06-19] MEDS ORDERED: WARFARIN SOD 0.5 MG TAB PO STA (18:38)
--- NOTE | 2022-06-19 18:38 | Hospitalist Progress Note ---
Date of Service June 19, 2022 Assessment & Plan (1) Sacral osteomyelitis: Plan Plan (1) Osteomyelitis: Plan: per Dr. Babin's notes with addendum: Sacral Wound Osteomyelitis ( Biopsy confirmed on 06/10) Has undergone multiple debridement; last one in 06/10/2022. Had wound VAC placed but got dislodged. Currently on daily dressing. Sacral Wound Grew: Enterococcus VRE on 05/27/2022 Source likely stage IV sacral ulcer with likely underlying osteomyelitis Initially was on broad spectrum abx with intravenous cefepime, daptomycin and oral fluconazole S/P debridement of sacral ulcer with bone biopsy on 05/27/2022 and repeat debri viviana 06/10 Evaluated by surgery and ID- recommendations noted Plan: Discussed over the phone with infectious disease (Dr. Mclean) over the phone on 06/14. Reviewed pathology and microbiology with him over the phone. He suggested daptomycin for 3 more weeks. However, given the extent of her sacral wound; infection control is difficult. Recommend aggressive wound care. Discussed with family at bedside; they do not want her to go to [facility]. Would prefer her to go to [facility]. We will continue aggressive wound care daily while inpatient. . Appreciate surgery recommendation. 06/19 stable overall continue Daptomycin IV PRN pain medications Headache check CT head: negative Adjustment disorder with depressed mood Appreciate psychiatrist input and recommendation Vitamin B12, folate and TSH are normal stable (2) Anemia: Plan: Chronic anemia in the setting of ESRD and GI losses (reported but not observed) and phlebotomy Was reportedly getting ?EPO injections with HD per Patient - continue EPO per renal No signs of active bleeding Positive FOBT S/P PRBCs during HD Monitor CBC: Hg 8.1 --> 8.2 (3) Osteomyelitis: Plan: (4) New onset atrial fibrillation: Plan: On amiodarone 200mg once daily. On Coumadin 1.5mg. INR is 1.9 today. -- additional Coumadin 1.5 mg today (5) Ulcer of sacral region, stage 4: Plan: - plan as above. (6) Radiation necrosis of skin and subcutaneous: Plan: - plan as above (7) Acute hyponatremia: Plan: - likely due to sepsis and decrease po intake Sodium level stable Monitor (8) End-stage renal disease (ESRD): Plan: Has been on HD for the past year, per patient Normal HD schedule MWF Continue hemodialysis as per Nephrology (9) Diabetes: Plan: Continue insulin per protocol (10) Hypothyroid: Plan: TSH 22, FT4 <0.25 unclear if patient taking medication appropriately TSH normalized with restarting levothyroxine (11) Thrombocytopenia: Plan: unclear chronicity likely consumption in sepsis, ESRD, chronic illness no signs of bleeding Monitor (12) Coagulopathy: Plan: Monitor INR: 9.6>3.1>2.7>3.6->3.4->2.1->2 > 2.5> 2.1> 1.8 No obvious bleeding issues continue coumadin- recheck INR in am Plan DVT px:coumadin Dispo- Debridement on 06/10;awaiting placement to SNF Code Status: DNI/DNR Admission and Anticipated Discharge Date Admission Date: May 14, 2022 Subjective ff up for sacral OM, etc seen resting in bed, comfortable strongly requests to sit up in bed, dangle legs over the bed no chest pain, dyspnea, palpitations, dizziness reports pain over posterior aspect of her head, occipital area no nausea, vomiting, neuro deficits no other symptoms Review of Systems Review of Systems: all noted and negative except for above Physical Exam Physical Exam: General- oriented x 3, not in distress, speaks in sentences with no effort or accessory muscle use Eyes- anicteric Neck- no JVD Lungs- clear BS BL Heart- normal rate, regular rhythm; no murmurs Abdomen- normal bowel sounds, nondistended, soft, nontender Extremities- mild pretibial edema, no calf tenderness Neuro- alert, oriented x 3; no gross focal neurologic deficits Skin- warm & dry Results & Data Results & Data ([facility]) Vital Signs (Past 12 Hours) Vital Signs Temp Pulse Pulse Resp BP BP Pulse Ox 06/19/22 09:00 06/19/22 15:26 36.8 C 84 17 100/64 100 06/19/22 14:57 85 06/19/22 13:06 36.4 C L 83 16 85/51 L 99 06/19/22 12:42 37.0 C 78 91/50 L 06/19/22 12:30 60 104/44 L 06/19/22 12:00 75 78/49 L 06/19/22 11:30 75 69/43 L 06/19/22 11:00 59 L 70/42 L 06/19/22 10:30 61 77/32 L 06/19/22 10:00 84 89/50 L 06/19/22 09:38 84 89/50 L 06/19/22 09:35 36.5 C 84 06/19/22 07:33 36.9 C 84 20 86/58 L 100 06/19/22 07:00 88 O2 Del Method O2 Flow Rate 06/19/22 09:00 Nasal Cannula 2 06/19/22 15:26 Nasal Cannula 3 06/19/22 14:57 06/19/22 13:06 Nasal Cannula 3 06/19/22 12:42 06/19/22 12:30 06/19/22 12:00 06/19/22 11:30 06/19/22 11:00 06/19/22 10:30 06/19/22 10:00 06/19/22 09:38 06/19/22 09:35 06/19/22 07:33 Nasal Cannula 2 06/19/22 07:00 all noted and reviewed including below
[2022-06-19] MEDS: HYDROmorphone INJ 0.5 MG/0.5 ML SYR IV PRN (19:18)
[2022-06-19] MEDS: diphenhydrAMINE Capsule 25 MG CAP PO PRN (19:18)
[2022-06-19] MEDS: LATANOPROST 0.005% OP SOLN 2.5 ML BTL OPB SCH (20:45)
[2022-06-19] MEDS: rOPINIRole HCL 0.25 MG TABLET PO SCH (20:48)
[2022-06-19] MEDS: GABAPENTIN 100 MG CAP PO SCH (20:48)
[2022-06-19] MEDS: LANTUS PER UNIT CHARGE SQ SCH (21:11)
[2022-06-20] MEDS: LEVOTHYROXINE SODIUM 150 MCG TABLET PO SCH (05:59)
[2022-06-20 07:34] LABS: INR 2.6 (0.9-1.1); Prothrombin Time 25.9 Seconds (9.0-12.0)
[2022-06-20] MEDS: AMIODARONE 200 MG TAB PO SCH (08:05)
[2022-06-20] MEDS: INSULIN ASPART PER UNIT SC SCH ×4 (08:06→20:23)
[2022-06-20] MEDS: BRIMONIDINE TARTRATE 0.2% 5ML OP SCH ×2 (08:06→20:34)
[2022-06-20] MEDS: NEPHROCAPS PO SCH ×2 (08:06→20:34)
[2022-06-20] MEDS: FLUTICASONE PROPIONATE NA SPR 16 GM BTL SCH (08:06)
[2022-06-20] MEDS: ADVANCED PROBIOTIC 1250 MG CAPSULE PO SCH (08:06)
[2022-06-20] MEDS: MIDODRINE HCL 10 MG TAB PO SCH ×3 (08:06→16:57)
[2022-06-20] MEDS: HYDROmorphone INJ 0.5 MG/0.5 ML SYR IV PRN (12:50)
[2022-06-20] MEDS: COLLAGENASE OINT 30 GM TUBE EXT SCH (14:04)
[2022-06-20] MEDS: WARFARIN SOD 0.5 MG TAB PO SCH (16:57)
--- NOTE | 2022-06-20 18:15 | Hospitalist Progress Note ---
Date of Service June 20, 2022 Assessment & Plan (1) Sacral osteomyelitis: Plan Plan (1) Osteomyelitis: Plan: per Dr. Babin's notes with addendum: Sacral Wound Osteomyelitis ( Biopsy confirmed on 06/10) Has undergone multiple debridement; last one in 06/10/2022. Had wound VAC placed but got dislodged. Currently on daily dressing. Sacral Wound Grew: Enterococcus VRE on 05/27/2022 Source likely stage IV sacral ulcer with likely underlying osteomyelitis Initially was on broad spectrum abx with intravenous cefepime, daptomycin and oral fluconazole S/P debridement of sacral ulcer with bone biopsy on 05/27/2022 and repeat debri viviana 06/10 Evaluated by surgery and ID- recommendations noted Plan: Discussed over the phone with infectious disease (Dr. Mclean) over the phone on 06/14. Reviewed pathology and microbiology with him over the phone. He suggested daptomycin for 3 more weeks. However, given the extent of her sacral wound; infection control is difficult. Recommend aggressive wound care. Discussed with family at bedside; they do not want her to go to [facility]. Would prefer her to go to [facility]. We will continue aggressive wound care daily while inpatient. . Appreciate surgery recommendation. 06/20 stable overall continue Daptomycin IV PRN pain medications Headache CT head: negative resolved Adjustment disorder with depressed mood Appreciate psychiatrist input and recommendation Vitamin B12, folate and TSH are normal stable (2) Anemia: Plan: Chronic anemia in the setting of ESRD and GI losses (reported but not observed) and phlebotomy Was reportedly getting ?EPO injections with HD per Patient - continue EPO per renal No signs of active bleeding Positive FOBT S/P PRBCs during HD Monitor CBC: Hg 8.1 --> 8.2 (3) Osteomyelitis: Plan: (4) New onset atrial fibrillation: Plan: On amiodarone 200mg once daily. On Coumadin 1.5mg. INR is 2.6 continue coumadin (5) Ulcer of sacral region, stage 4: Plan: - plan as above. (6) Radiation necrosis of skin and subcutaneous: Plan: - plan as above (7) Acute hyponatremia: Plan: - likely due to sepsis and decrease po intake Sodium level stable Monitor (8) End-stage renal disease (ESRD): Plan: Has been on HD for the past year, per patient Normal HD schedule MWF Continue hemodialysis as per Nephrology (9) Diabetes: Plan: Continue insulin per protocol (10) Hypothyroid: Plan: TSH 22, FT4 <0.25 unclear if patient taking medication appropriately TSH normalized with restarting levothyroxine (11) Thrombocytopenia: Plan: unclear chronicity likely consumption in sepsis, ESRD, chronic illness no signs of bleeding Monitor (12) Coagulopathy: Plan: Monitor INR: 9.6>3.1>2.7>3.6->3.4->2.1->2 > 2.5> 2.1> 1.8 No obvious bleeding issues continue coumadin- recheck INR in am Plan DVT px:coumadin Dispo- Debridement on 06/10;awaiting placement to SNF Code Status: DNI/DNR Admission and Anticipated Discharge Date Admission Date: May 14, 2022 Subjective ff up for sacral OM, etc seen sitting up in bed, comfortable has back pain- analgesics relieving no chest pain, dyspnea, palpitations, dizziness no other symptoms Review of Systems Review of Systems: all noted and negative except for above Physical Exam Physical Exam: General- oriented x 3, not in distress, speaks in sentences with no effort or accessory muscle use Eyes- anicteric Neck- no JVD Lungs- clear breath sounds bilaterally, no rales/wheezes Heart- normal rate, regular rhythm; no murmurs Abdomen- normal bowel sounds, nondistended, soft, nontender Extremities- no pretibial edema, no calf tenderness Neuro- alert, oriented x 3; no gross focal neurologic deficits Skin- warm & dry Results & Data Results & Data ([facility]) Vital Signs (Past 12 Hours) Vital Signs Temp Pulse Pulse Resp BP Pulse Ox O2 Del Method 06/20/22 17:03 81 06/20/22 15:36 36.3 C L 73 14 81/50 L 96 Nasal Cannula 06/20/22 11:32 36.5 C 72 18 92/55 L 100 Nasal Cannula 06/20/22 11:23 81 06/20/22 08:00 81 06/20/22 08:23 36.4 C L 77 17 91/56 L 100 Nasal Cannula O2 Flow Rate 06/20/22 17:03 06/20/22 15:36 2 06/20/22 11:32 2 06/20/22 11:23 06/20/22 08:00 06/20/22 08:23 2 all noted and reviewed including below
[2022-06-20] MEDS: LANTUS PER UNIT CHARGE SQ SCH (20:24)
[2022-06-20] MEDS: rOPINIRole HCL 0.25 MG TABLET PO SCH (20:34)
[2022-06-20] MEDS: LATANOPROST 0.005% OP SOLN 2.5 ML BTL OPB SCH (20:34)
[2022-06-20] MEDS: GABAPENTIN 100 MG CAP PO SCH (20:34)
[2022-06-21 06:33] LABS: INR 4.4 (0.9-1.1); Prothrombin Time 43.5 Seconds (9.0-12.0)
[2022-06-21] MEDS ORDERED: SODIUM CHLORIDE 0.9% 1000ML 1,000 ML IV PRN ×2 (07:34→12:43)
[2022-06-21] MEDS ORDERED: EPOETIN ALFA 20,000 UNITS/ML VIAL IV ONE (07:34)
[2022-06-21] MEDS ORDERED: MIDODRINE HCL 10 MG TAB PO SCH (08:00)
[2022-06-21] MEDS: AMIODARONE 200 MG TAB PO SCH (08:18)
[2022-06-21] MEDS: INSULIN ASPART PER UNIT SC SCH ×4 (08:18→21:46)
[2022-06-21] MEDS: BRIMONIDINE TARTRATE 0.2% 5ML OP SCH ×2 (08:19→21:48)
[2022-06-21] MEDS: ADVANCED PROBIOTIC 1250 MG CAPSULE PO SCH (08:19)
[2022-06-21] MEDS: NEPHROCAPS PO SCH ×2 (08:19→21:47)
[2022-06-21] MEDS: COLLAGENASE OINT 30 GM TUBE EXT SCH (08:20)
[2022-06-21] MEDS: FLUTICASONE PROPIONATE NA SPR 16 GM BTL SCH (08:20)
[2022-06-21] MEDS: HYDROmorphone INJ 0.5 MG/0.5 ML SYR IV PRN ×2 (09:00→15:37)
[2022-06-21 09:47] LABS: BUN Creatinine Ratio 11.2 (10-20); Calcium 8.5 mg/dl (8.5-10.1); Creatinine Clr Calc Pharmacy 15.6 ml/min; Est GFR (African American) 14.9 ml/min; Est GFR (Non-African American) 12.9 ml/min; Potassium 4.2 mmol/L (3.5-5.1)
[2022-06-21 11:18] LABS: Iron 19 mcg/dl (35-150); Total Iron Binding Cap Calc 130 mcg/dl (250-450); Transferrin (FE) Percent Satur 15 % (15-50); Unsaturated Iron Binding Cap 111 mcg/dl (155-355)
--- NOTE | 2022-06-21 12:19 | Pharmacy Report ---
Pharmacy Glycemic Short Note 2 - Date of Service June 21, 2022 - Glycemic Short BSG Results (Last 24 hours): 06/20/22 06/20/22 06/21/22 16:29 19:38 05:30 Glucose 107 H POC Glucose 156 H 145 H 06/21/22 07:05 Glucose POC Glucose 108 H OUTPATIENT ANTIDIABETIC REGIMEN: * Basaglar 42 units HS - reports following [facility] clinic * Patient is also to be taking Trulicity and Novolog but does not. Has been discharged from the [facility] clinic due to failure to respond. * HbA1c = 5.9% (05/15/22) * However, this result is likely somewhat unreliable in ESRD patients d/t interactions between the A1c analyzing technique and high levels of urea in ESRD, reduced RBC life span, iron deficiency anemia, and EPO administration. HbA1c > 7.5% in ESRD patient may overestimate the extent of hyperglycemia in ESRD patients. ASSESSMENT: 06/21/22 * Patient's BSGs yesterday were [phone] mg/dL. Patient received 37 units of insulin (14 units of basal and 23 units of bolus). * Patient's fasting today is 108 mg/dL. This is significantly lower than yesterday; however, patient has been stable on 14 units of Lantus for several days now. Will continue. * Continue Novolog as BSGs stable 06/17: * Fasting blood sugar elevated at 191mg/dl - increase basal slightly * Blood sugars above goal after HD, tighten CF/CR as pt is scheduled for HD again today * Will try to empirically loosen CF/CR on non-HD days 06/16: * Fasting blood sugar elevated at 199mg/dl - usually at goal, will not make any changes in basal until consistently elevated * Blood sugars at goal all day yesterday, no changes in insulin at this time * Patient continues IV Daptomycin for sacral osteo 06/14: * Patient received total of 23 units of insulin yesterday, of which 12 units were basal * Fasting BSG 155 mg/dL - appropriate, continue same basal insulin * RN called this morning as patient going to dialysis - Dialysis requesting we hold correctional insulin due to concerns for blood sugars dropping while at dialysis 06/10: * Patient received total of 36 units of insulin yesterday; 12 units basal + 24 units bolus. * BSGs yesterday were [phone] mg/dl. Patient had refused basal insulin dose the day prior but BSGs were not too badly elevated. She had also got Hemo-dialysis yesterday. * Fasting BSG today was 150 mg/dl. Continued with basal insulin 12 units at HS. * Patient made NPO this morning for surgical debridement of sacral necrotic wound. * Continued Novolog parameters the same since post prandial BSGs have been fairly well controlled with current parameters. PLAN FOR INPATIENT GLYCEMIC CONTROL: * Basal insulin * Lantus 14 units SC HS * Bolus insulin * NovoLog per scale ACHS * Goal Range: Low 110 mg/dL - High 140 mg/dL * Correction Factor: 15 mg/dL/unit * Nutritional / Prandial insulin per carb ratio of 1 unit per 6 grams CHO consumed
--- NOTE | 2022-06-21 12:59 | Nephrology Progress Note ---
Date of Service June 21, 2022 Assessment & Plan (1) End-stage renal disease (ESRD): Plan: (1) End-stage renal disease (ESRD): Plan: ESRD MWF at [facility] via dialysis catheter historically -cont aggressive epo w/ HD -start venofer load w/ next HD Continues to have massive edema despite frequent dialysis. Dialysistoday; eval to repeat in AM. Will need at least 4 days a week. -Next HD will be Tuesday UF limited by low BP despite Midodrine < resumed this w/ HD today Fluid limit 1200 per day--also need to include ice chips. She is having lot of this--told her to limit (2) Osteomyelitis: Plan: -S/p surgical debridement - Continues on Daptomycin renally dosed Waiting placement. (2) Osteomyelitis: Admission and Anticipated Discharge Date Admission Date: May 14, 2022 Subjective c/o severe R hip pain and "burning back" when I saw her this am at 0750. no sob, no n/v. Review of Systems Review of Systems: All systems reviewed & are unremarkable except as noted in Subjective Physical Exam Constitutional: well developed, well nourished, + ill appearing, + obese, + frail appearing and cooperative; no acute distress Eyes: EOM intact bilaterally ENMT: Ears: no external ear abnormality Nose: no external nose abnormality Mouth: + dry oral mucous membranes Neck: no nuchal rigidity Respiratory: normal respiratory effort (on 2L 02nc lying flat on RA) and able to speak in complete sentences; no labored breathing, does not use accessory muscles, no cough and not tachypneic Auscultation: + diminished lung sounds Cardiovascular: Rate/Rhythm: regular rate and regular rhythm Extremities: + edema (1++ dependent BLE) Gastrointestinal (Abdomen): Inspection/Auscultation: abdomen normal to inspection (w/ colostomy present) and normal bowel sounds Percussion/Palpation: abdomen soft; abdomen nontender Musculoskeletal: Extremities: + abnormal strength Skin: no rashes, warm and dry (sacral wound not examined) Psychiatric: Orientation: oriented to person, oriented to place and cooperative Affect: euthymic affect and + anxious affect Insight: + limited insight Results & Data ([place]) Vital Signs (Past 12 Hours) Vital Signs Temp Pulse Pulse Resp BP BP Pulse Ox 06/21/22 09:36 36.8 C 81 06/21/22 11:00 84 70/37 L 06/21/22 10:30 82 81/44 L 06/21/22 10:00 78 79/42 L 06/21/22 09:45 75 91/49 L 06/21/22 08:00 06/21/22 07:01 36.9 C 79 17 86/50 L 100 06/21/22 03:16 36.6 C 80 16 89/57 L 100 O2 Del Method O2 Flow Rate 06/21/22 09:36 06/21/22 11:00 06/21/22 10:30 06/21/22 10:00 06/21/22 09:45 06/21/22 08:00 Nasal Cannula 2 06/21/22 07:01 Nasal Cannula 2.0 06/21/22 03:16 2 Laboratory Results 06/21/22 05:30 06/21/22 05:30 (1) Osteomyelitis Osteomyelitis location: unspecified site Osteomyelitis type: unspecified type Qualified Code(s): M86.9 - Osteomyelitis, unspecified
[2022-06-21] MEDS ORDERED: IRON SUCROSE 100 MG in SYRINGE 0 ML IV SCH (13:00)
[2022-06-21] MEDS: traMADol HCL 50 MG TABLET PO PRN ×2 (13:25→21:49)
[2022-06-21] MEDS: DAPTOmycin 550 MG in SYRINGE 0 ML IV SCH (14:41)
[2022-06-21] MEDS: ACETAMINOPHEN 325 MG TAB PO PRN ×2 (14:42→21:11)
--- NOTE | 2022-06-21 15:34 | XRay Report ---
SINGLE VIEW CHEST CLINICAL HISTORY: Pulmonary edema and pleural effusions. FINDINGS: An AP, portable, upright chest radiograph is compared to study dated 06/14/2022. A right-sonya ed central venous catheter is unchanged in position. The heart is enlarged noting atherosclerotic richa cification of the thoracic aorta. There is pulmonary vascular congestion mild pulmonary edema. This h as improved from previous. There are right larger than left pleural effusions with dependent consolid ation. No pneumothorax is seen. The skeletal structures are osteopenic. The bony thorax is grossly in tact. Calcific tendinopathy is noted in the right shoulder. IMPRESSION: 1. Cardiomegaly with evidence of congestive failure and pulmonary edema. This has modestly improved a s compared to 06/14/2022. 3. Right larger than left pleural effusions with dependent consolidation. ACT 112: Negative or not required by law. Electronically signed by: Deep Fontana M.D. 06/21/2022 3:32 PM
--- NOTE | 2022-06-21 16:45 | Hospitalist Progress Note ---
Date of Service June 21, 2022 Assessment & Plan (1) Sacral osteomyelitis: Plan Plan (1) Osteomyelitis: Plan: per Dr. Babin's notes with addendum: Sacral Wound Osteomyelitis ( Biopsy confirmed on 06/10) Has undergone multiple debridement; last one in 06/10/2022. Had wound VAC placed but got dislodged. Currently on daily dressing. Sacral Wound Grew: Enterococcus VRE on 05/27/2022 Source likely stage IV sacral ulcer with likely underlying osteomyelitis Initially was on broad spectrum abx with intravenous cefepime, daptomycin and oral fluconazole S/P debridement of sacral ulcer with bone biopsy on 05/27/2022 and repeat debri viviana 06/10 Evaluated by surgery and ID- recommendations noted Plan: Discussed over the phone with infectious disease (Dr. Mclean) over the phone on 06/14. Reviewed pathology and microbiology with him over the phone. He suggested daptomycin for 3 more weeks. However, given the extent of her sacral wound; infection control is difficult. Recommend aggressive wound care. Discussed with family at bedside; they do not want her to go to [facility]. Would prefer her to go to [facility]. We will continue aggressive wound care daily while inpatient. . Appreciate surgery recommendation. 06/21 stable overall continue Daptomycin IV still having significant pain over the sacral wound area will consult Pain Management service Headache CT head: negative resolved Adjustment disorder with depressed mood Appreciate psychiatrist input and recommendation Vitamin B12, folate and TSH are normal stable (2) Anemia: Plan: Chronic anemia in the setting of ESRD and GI losses (reported but not observed) and phlebotomy Was reportedly getting ?EPO injections with HD per Patient - continue EPO per renal No signs of active bleeding Positive FOBT S/P PRBCs during HD Monitor CBC: Hg 8.1 --> 8.2 (3) Osteomyelitis: Plan: (4) New onset atrial fibrillation: Plan: On amiodarone 200mg once daily. On Coumadin 1.5mg. INR is 4.4 HOLD coumadin INR tomorrow (5) Ulcer of sacral region, stage 4: Plan: - plan as above. (6) Radiation necrosis of skin and subcutaneous: Plan: - plan as above (7) Acute hyponatremia: Plan: - likely due to sepsis and decrease po intake Sodium level stable Monitor (8) End-stage renal disease (ESRD): Plan: Has been on HD for the past year, per patient Normal HD schedule MWF Continue hemodialysis as per Nephrology (9) Diabetes: Plan: Continue insulin per protocol (10) Hypothyroid: Plan: TSH 22, FT4 <0.25 unclear if patient taking medication appropriately TSH normalized with restarting levothyroxine (11) Thrombocytopenia: Plan: unclear chronicity likely consumption in sepsis, ESRD, chronic illness no signs of bleeding resolved (12) Coagulopathy: Plan: Monitor INR: 9.6>3.1>2.7>3.6->3.4->2.1->2 > 2.5> 2.1> 1.8 No obvious bleeding issues INR 4.4--> hold coumadin, repeat INR tomorrow Plan DVT px:HOLD coumadin Dispo- Debridement on 06/10;awaiting placement to SNF Code Status: DNI/DNR Admission and Anticipated Discharge Date Admission Date: May 14, 2022 Subjective ff up for sacral OM, etc seen resting in bed, not in distress states she is having significant back pain no chest pain, dyspnea, palpitations, dizziness no other symptoms Review of Systems Review of Systems: all noted and negative except for above Physical Exam Physical Exam: General- oriented x 3, not in distress, speaks in sentences with no effort or accessory muscle use Eyes- anicteric Neck- no JVD Lungs- clear BS BL Heart- normal rate, regular rhythm; no murmurs Abdomen- normal bowel sounds, nondistended, soft, nontender Extremities- mild lower leg edema, no erythema/warmth, no calf tenderness Neuro- alert, oriented x 3; no gross focal neurologic deficits Skin- warm & dry Results & Data Results & Data ([facility]) Vital Signs (Past 12 Hours) Vital Signs Temp Pulse Pulse Resp BP BP Pulse Ox 06/21/22 15:24 36.5 C 93 H 20 103/68 96 06/21/22 12:30 86 85/43 L 06/21/22 12:00 87 72/46 L 06/21/22 12:55 36.7 C 89 88/50 L 06/21/22 11:30 83 84/49 L 06/21/22 09:36 36.8 C 81 06/21/22 11:00 84 70/37 L 06/21/22 10:30 82 81/44 L 06/21/22 10:00 78 79/42 L 06/21/22 09:45 75 91/49 L 06/21/22 08:00 06/21/22 07:01 36.9 C 79 17 86/50 L 100 O2 Del Method O2 Flow Rate 06/21/22 15:24 Room Air 06/21/22 12:30 06/21/22 12:00 06/21/22 12:55 06/21/22 11:30 06/21/22 09:36 06/21/22 11:00 06/21/22 10:30 06/21/22 10:00 06/21/22 09:45 06/21/22 08:00 Nasal Cannula 2 06/21/22 07:01 Nasal Cannula 2.0 all noted and reviewed including below
[2022-06-21] MEDS: MIDODRINE HCL 10 MG TAB PO SCH (17:19)
[2022-06-21] MEDS: LANTUS PER UNIT CHARGE SQ SCH (21:45)
[2022-06-21] MEDS: GABAPENTIN 100 MG CAP PO SCH (21:47)
[2022-06-21] MEDS: rOPINIRole HCL 0.25 MG TABLET PO SCH (21:47)
[2022-06-21] MEDS: LATANOPROST 0.005% OP SOLN 2.5 ML BTL OPB SCH (21:48)
[2022-06-22] MEDS: ACETAMINOPHEN 325 MG TAB PO PRN ×2 (04:01→18:17)
[2022-06-22] MEDS: traMADol HCL 50 MG TABLET PO PRN (04:28)
[2022-06-22] MEDS: HYDROmorphone INJ 0.5 MG/0.5 ML SYR IV PRN (05:15)
[2022-06-22] MEDS: LEVOTHYROXINE SODIUM 150 MCG TABLET PO SCH (06:16)
[2022-06-22 06:30] LABS: INR 4.3 (0.9-1.1); Prothrombin Time 42.1 Seconds (9.0-12.0)
[2022-06-22] MEDS: INSULIN ASPART PER UNIT SC SCH ×4 (08:09→20:55)
[2022-06-22] MEDS: ADVANCED PROBIOTIC 1250 MG CAPSULE PO SCH (08:13)
[2022-06-22] MEDS: MIDODRINE HCL 10 MG TAB PO SCH ×3 (08:13→17:14)
[2022-06-22] MEDS: NEPHROCAPS PO SCH ×2 (08:13→20:56)
[2022-06-22] MEDS: AMIODARONE 200 MG TAB PO SCH (08:13)
[2022-06-22] MEDS: FLUTICASONE PROPIONATE NA SPR 16 GM BTL SCH (08:13)
[2022-06-22] MEDS: COLLAGENASE OINT 30 GM TUBE EXT SCH (08:14)
[2022-06-22] MEDS: BRIMONIDINE TARTRATE 0.2% 5ML OP SCH ×2 (08:14→20:56)
--- NOTE | 2022-06-22 08:33 | Pain Management Consultation ---
Date of Consultation June 22, 2022 Assessment & Plan (1) Sacral osteomyelitis: (2) Ulcer of sacral region, stage 4: (3) End-stage renal disease (ESRD): (4) Hemodialysis patient: Plan 1. Will discontinue tramadol and initiate a trial of hydrocodone 5/325 mg 1 tablet p.o. every 6 hours as needed for breakthrough pain 2. Will adjust Tylenol 650 from every 6 to every 8 H 3. Patient may reserve IV hydromorphone for breakthrough pain not well controlled with above 4. Will titrate gabapentin to 300 mg nightly 5. Further recommendations pending response to above Thank you for allowing us to participate in the care of Mrs. Beck History of Present Illness Reason for Consultation: Intractable lumbosacral pain extending towards hip Requesting Physician: Jose L Kapoor MD Attending Physician: Jose L Kapoor MD History of Present Illness Mrs. Beck is a 67-year-old white female with past medical history significant for rectal cancer status post chemoradiation greater than 20 years ago, cervical/uterine cancer, history of chronic rectal bleeding status post ostomy diversion 2021, end-stage renal disease on hemodialysis 3-4 times weekly, CAD status post GA 2016, hypertension, chronic anticoagulation therapy with Coumadin, insulin-dependent diabetes mellitus with ongoing large open sacral wound infection with underlying osteomyelitis. Patient has had symptomatic improvement upon this admission and is currently being treated with ongoing IV antibiotic therapy with daptomycin. Patient has continued to complain of significant pain over the sacral region which is extending into the hips which she describes a burning characteristic pain. She rates her pain a 2/10 at its best and 10/10 at its worst. Patient reports her current pain is a 9/10 although is sitting quietly eating her breakfast in no acute distress. Patient reports that tramadol provides some moderate benefit which did allow some improved sleep quality/quantity. She reports benefit from tramadol does not last for greater than 2 or 3 hours. She reports similar response to IV hydromorphone. Patient indicates that she does tolerate his medication without notable side effects. She denies any true radicular pattern to her pain. She reports increased pain with any movement especially whenever she is rolled for care of her sacral wound. Patient has no further constitutional complaints at this time. Plan of care discussed with Dr. Tammy Rojas. Pain Assessment Full Body Front + Back: 1. Sacral region 2. Radiating pain towards lateral hip and proximal lateral thigh 3. Radiating pain towards lateral hip and proximal lateral thigh Pain scale - at its best (0-10): 2 Pain scale - at its worst (0-10): 10 Allergies Allergy/AdvReac Type Severity Reaction Status Date / Time fluorescein Allergy Severe EYE Verified 06/10/22 09:04 SWELLING AND THROAT SWELLING lisinopril Allergy Intermediate "CHOKING" Verified 06/10/22 09:04 cephalexin Allergy Mild HIVES Verified 06/10/22 09:04 meperidine Allergy Mild NAUSEA Verified 06/10/22 09:04 Penicillins Allergy Mild Rash Verified 06/10/22 09:04 Home Medications Medication Instructions Recorded Confirmed Type Daptomycin Iv 750 mg IV .Q Tue05/14/22 05/14/22 History atorvastatin 40 mg tablet 40 mg PO QAM 05/14/22 05/14/22 History brimonidine 0.2 %-timolol 0.5 % 1 drp OPB AMHS 05/14/22 05/14/22 History eye drops daptomycin 500 mg intravenous 500 mg IV .ONCE A DAY ON 05/14/22 05/14/22 History solution fluconazole 200 mg tablet 200 mg PO QAM 05/14/22 05/14/22 History furosemide 20 mg tablet (Lasix) 20 mg PO QAM 05/14/22 05/14/22 History gabapentin 300 mg capsule 300 mg PO 05/14/22 05/14/22 History hydroxyzine HCl 25 mg tablet 25 mg PO Q6 PRN Anxiety 05/14/22 05/14/22 History insulin aspart U-100 100 unit/mL 0 unit subcut .PM MEAL 05/14/22 05/14/22 History (3 mL) subcutaneous pen (Novolog Flexpen U-100 Insulin aspart) insulin glargine 100 unit/mL (3 40 unit subcut QAM 05/14/22 05/14/22 History mL) subcutaneous pen (Basaglar KwikPen U-100 Insulin) latanoprost 0.005 % eye drops 1 drp OPB HS 05/14/22 05/14/22 History levothyroxine 137 mcg tablet 137 mcg PO DAILY 05/14/22 05/14/22 History loperamide 2 mg capsule 2 mg PO DIRECTED PRN Diarrhea 05/14/22 05/14/22 History midodrine 5 mg tablet 5 mg PO TID 05/14/22 05/14/22 History nitroglycerin 0.4 mg sublingual 0.4 mg sublingual DIRECTED PRN 05/14/22 05/14/22 History tablet (Nitrostat) Chest Pain ondansetron HCl 4 mg tablet 4 mg PO DIRECTED PRN Nausea 05/14/22 05/14/22 History oxycodone 5 mg/5 mL oral solution 2.5 mg PO DAILY PRN Severe Pain 05/14/22 05/14/22 History (Scale Score 7-10) pantoprazole 40 mg tablet,delayed 40 mg PO DAILY 05/14/22 05/14/22 History release ropinirole 0.25 mg tablet 0.25 mg PO HS 05/14/22 05/14/22 History sodium hypochlorite 0.25 % solution 1 applic topical DAILY 05/14/22 05/14/22 History triamcinolone acetonide 0.1 % 1 applic topical DIRECTED 05/14/22 05/14/22 History topical cream Pain History Pain Intensity Pain scale - at its best (0-10): 2 Pain scale - at its worst (0-10): 10 Patient History Medical History (Updated 06/22/22 @ 08:55 by Felipe Mcguire PA-C) Accelerating angina Anemia Anemia due to stage 5 chronic kidney disease treated with erythropoietin Atherosclerosis of [place] arteries of extremities with rest pain, left leg Cancer of anorectal junction Cat bite of left forearm Cervical cancer Chronic lower GI bleeding Chronic radiation dermatitis Chronic stable angina CKD (chronic kidney disease) stage 5, GFR less than 15 ml/min CKD, patient preferred treatment modality in-center hemodialysis Closed fracture of phalanx of left fifth toe Colonic polyp Coronary artery disease 50% lad stenosis, an 80% obtuse marginal stenosis, and a 50% PDA stenosis. It should be noted her PDA arose from her left circumflex. Demand ischemia of myocardium DM type 2 with diabetic peripheral neuropathy Encounter for colorectal cancer screening 02/10/07 ESRD (end stage renal disease) on dialysis Heart failure with preserved ejection fraction, borderline, class II Hemodialysis patient History of treatment of incomplete miscarriage x3 History of hyperbaric oxygen therapy 07/2011, 11/2011, 60 treatments. History of rectal or anal cancer HTN (hypertension) Hx of barium enema Hx of mammogram Hyperlipidemia Hyperparathyroidism Hyponatremia Hypothyroidism Injection of surface of both eyes Injection of eye drug, Lucentis 0.3mg by Dr. Taveras Iron deficiency anemia due to chronic blood loss Major depressive disorder Melanoma of back Myocardial infarction Non-compliance Other pancytopenia PAD (peripheral artery disease) Proliferative diabetic retinopathy of both eyes without macular edema associated with diabetes mellitus due to underlying condition Radiation proctitis Retinal edema Retinal lesion S/P arteriogram of extremity Thrombocytopenia Type 2 diabetes mellitus Uncontrolled type 2 diabetes mellitus with retinopathy of left eye, with long- term current use of insulin Uterine cancer Vitreous hemorrhage of right eye Surgical History (Updated 06/10/22 @ 11:11 by Judith Wiley RN) H/O cataract removal with insertion of prosthetic lens H/O colonoscopy adhesions and radiation colitis precluded advancing scope through the sigmoid. Exam discontinued. H/O eye surgery partial removal of eye fluid, bilateral H/O laparoscopy appendectomy History of breast surgery left breast, 1982 History of insertion of tunneled central venous catheter (CVC) with port History of revascularization procedure of lower extremity Hx of angioplasty Hx of biopsy benign right breast biopsy about 20 years ago. Hx of colonoscopy 08/31/2017, multiple colonic angioectasias from prior radiation/narrowed and scarred left colon from multiple prior surgeries/colonoscopy flexible proximal diagnositic performed by Chandler Gill. S/P debridement (05/27/22) Debridement of Sacral Ulcer with Bone Biopsy(Not Applicable) - Shawn Baldwin MD, FACS S/P debridement (06/10/22) Debridement of Sacral Ulceration(Not Applicable) - Shawn Baldwin MD, FACS S/P laser trabeculoplasty of eye S/P tonsillectomy Status post total abdominal hysterectomy Social History Smoking Status: Never smoker Hx Alcohol Use: No Hx Substance Use: No Preferred Language: Arabic Communication Ability: Effective Beliefs That Will Affect Care: None marital status: Current Living Situation: Spouse current occupational status: employed current occupation: has own salon How many Children do You have: 1 How many Children do You have Comment: special needs child Feels Safe at Home: Yes Safety Concerns: Feels Safe At This Time caffeine: No Assistive Devices: None Physical Exam Physical Exam: General: Patient sitting quietly in exam room in no acute distress. Speech and thought process appropriate. Mood and affect appropriate. Cognition intact. Patient was sitting up quietly in no acute distress eating breakfast upon entering the room. Head: Normocephalic and atraumatic. ENT: No evidence of nasal or oral mucosal lesions. Mucous membranes are moist. Eyes: Pupils equal round reactive to light. Neck: Supple without adenopathy and full range of motion. Abdomen: Soft and nondistended. No organomegaly. Bowel sounds active. Ostomy present in left lower quadrant. Back/spine: Patient unwilling to log-roll for visual inspection due to discomfort previously experienced. Sacral wound images were reviewed from EMR. Lower extremities: Patient has some generalized edema of the bilateral lower extremities. She is tender to direct palpation over the greater trochanteric and lateral hips bilaterally. No allodynia or hyperpathia. Minimal hyperalgesia noted. Patient has 5/5 strength with dorsi and plantar flexion and EHL testing bilaterally. Sensation was intact distally to sharp and dull. Neurologic: Cranial nerves grossly intact. Ambulatory function not witnessed.
[2022-06-22] MEDS: HYDROCODONE/ACETAMOPHEN 5/325MG TAB PO PRN ×2 (10:36→16:00)
--- NOTE | 2022-06-22 14:18 | Pharmacy Report ---
Pharmacy Glycemic Sign Off Nt - Date of Service June 22, 2022 - Assessment & Plan ASSESSMENT: * Pharmacy was consulted by Dr Saucedo on 05/14/22 for glycemic control and to write orders per [facility] inpatient glycemic control protocol. * Major changes made by pharmacy to antidiabetic regimen include: * initiation of Lantus + Novolog * Patient has been receiving/requiring ~35 units of insulin per day for adequate glycemic control * BSGs ranging 98- 187 mg/dl * Regimen has only required minor adjustments over the past 48hrs to achieve this level of control * Do not anticipate further changes in patient status that would quickly deteriorate glycemic control (i.e. patient to be NPO for upcoming procedure, steroids tapering, starting tube feedings, etc). * Please see recommendations for outpatient antidiabetic regimen below. PLAN FOR INPATIENT GLYCEMIC CONTROL: No changes needed to current regimen. * Continue basal insulin with Lantus 14 units SQ HS * Continue NovoLog per scale ACHS/Q6hrs while NPO * Goal range = 110-140 mg/dl * CF = 15 mg/dl/unit * CR = 1 unit for ever 6 g CHO consumed * Pharmacy is signing off of glycemic consult and will no longer be making adjustments to inpatient regimen. Please feel free to re-consult if needed. Thank you.
--- NOTE | 2022-06-22 18:33 | Hospitalist Progress Note ---
Date of Service June 22, 2022 Assessment & Plan (1) Sacral osteomyelitis: Plan per Dr. Babin's notes with addendum: Sacral Wound Osteomyelitis ( Biopsy confirmed on 06/10) Has undergone multiple debridement; last one in 06/10/2022. Had wound VAC placed but got dislodged. Currently on daily dressing. Sacral Wound Grew: Enterococcus VRE on 05/27/2022 Source likely stage IV sacral ulcer with likely underlying osteomyelitis Initially was on broad spectrum abx with intravenous cefepime, daptomycin and oral fluconazole S/P debridement of sacral ulcer with bone biopsy on 05/27/2022 and repeat debridement 06/10 Evaluated by surgery and ID- recommendations noted Plan: Discussed over the phone with infectious disease (Dr. Mclean) over the phone on 06/14. He suggested daptomycin for 3 more weeks. However, given the extent of her sacral wound; infection control is difficult. Recommend aggressive wound care. Discussed with family at bedside; they do not want her to go to [facility]. Would prefer her to go to [facility]. We will continue aggressive wound care daily while inpatient. . Appreciate surgery recommendation. 06/22 Tolerating daptomycin IV well (needs 2 more weeks of IV daptomycin per ID recommendations) stable overall still having significant pain over the sacral wound area Pain management service consulted-tramadol changed to oxycodone, continue IV Dilaudid as needed, continue gabapentin Headache CT head: negative resolved Adjustment disorder with depressed mood Appreciate psychiatrist input and recommendation Vitamin B12, folate and TSH are normal stable Anemia: Plan: Chronic anemia in the setting of ESRD and GI losses (reported but not observed) and phlebotomy Was reportedly getting ?EPO injections with HD per Patient - continue EPO per renal No signs of active bleeding Positive FOBT S/P PRBCs during HD Monitor CBC: Hg 8.1 --> 8.2 New onset atrial fibrillation: On amiodarone 200mg once daily. On Coumadin 1.5mg. INR is 4.3 HOLD coumadin INR tomorrow Ulcer of sacral region, stage 4: Plan: - plan as above. Radiation necrosis of skin and subcutaneous: Plan: - plan as above Acute hyponatremia: Plan: - likely due to sepsis and decrease po intake Sodium level stable Monitor End-stage renal disease (ESRD): Plan: Has been on HD for the past year, per patient Normal HD schedule MWF Continue hemodialysis as per Nephrology Diabetes: Plan: Continue insulin per protocol Hypothyroid: Plan: TSH 22, FT4 <0.25 unclear if patient taking medication appropriately TSH normalized with restarting levothyroxine Thrombocytopenia: Plan: unclear chronicity likely consumption in sepsis, ESRD, chronic illness no signs of bleeding resolved Coagulopathy: Plan: Monitor INR: 9.6>3.1>2.7>3.6->3.4->2.1->2 > 2.5> 2.1> 1.8 No obvious bleeding issues INR 4.3--> hold coumadin, repeat INR tomorrow Plan DVT px:HOLD coumadin Dispo- awaiting placement to SNF Code Status: DNI/DNR Admission and Anticipated Discharge Date Admission Date: May 14, 2022 Subjective Follow-up for sacral osteomyelitis, ESRD, etc. Seen resting in bed, comfortable, not in distress States pain is improving today Pain management changed tramadol to oxycodone No shortness of breath, chest pain, dizziness, palpitations, nausea vomiting No other symptoms Review of Systems Review of Systems: all noted and negative except for above Physical Exam Physical Exam: General- oriented x 3, not in distress, speaks in sentences with no effort or accessory muscle use Eyes- anicteric Neck- no JVD Lungs- clear BS bilaterally, no rales/wheezes Heart- normal rate, regular rhythm; no murmurs Abdomen- normal bowel sounds, nondistended, soft, nontender Extremities-mild bilateral lower extremity edema, no calf tenderness Neuro- alert, oriented x 3; no gross focal neurologic deficits Skin- warm & dry Results & Data Results & Data ([facility]) Vital Signs (Past 12 Hours) Vital Signs Temp Pulse Resp BP Pulse Ox O2 Del Method O2 Flow Rate 06/22/22 16:11 36.4 C L 75 18 82/53 L 100 Nasal Cannula 2 06/22/22 11:09 36.3 C L 68 18 85/55 L 100 Nasal Cannula 2 06/22/22 08:00 Nasal Cannula 2 06/22/22 07:58 36.4 C L 79 18 86/54 L 100 Nasal Cannula 2 all noted and reviewed including below
[2022-06-22] MEDS: LANTUS PER UNIT CHARGE SQ SCH (20:55)
[2022-06-22] MEDS: rOPINIRole HCL 0.25 MG TABLET PO SCH (20:56)
[2022-06-22] MEDS: LATANOPROST 0.005% OP SOLN 2.5 ML BTL OPB SCH (20:56)
[2022-06-22] MEDS: GABAPENTIN 300 MG CAP PO SCH (20:56)
[2022-06-23] MEDS: LEVOTHYROXINE SODIUM 150 MCG TABLET PO SCH (06:04)
[2022-06-23] MEDS: COLLAGENASE OINT 30 GM TUBE EXT SCH (06:27)
[2022-06-23] MEDS: ACETAMINOPHEN 325 MG TAB PO PRN ×3 (06:29→20:56)
[2022-06-23] MEDS: HYDROCODONE/ACETAMOPHEN 5/325MG TAB PO PRN ×2 (06:42→12:55)
[2022-06-23] MEDS ORDERED: EPOETIN ALFA 20,000 UNITS/ML VIAL IV ONE (07:59)
[2022-06-23] MEDS ORDERED: SODIUM CHLORIDE 0.9% 1000ML 1,000 ML IV PRN (07:59)
[2022-06-23] MEDS ORDERED: ALBUMIN 25% 12.5 GM/50 ML VIAL IV ONE ×2 (07:59→10:00)
[2022-06-23] MEDS ORDERED: MIDODRINE HCL 10 MG TAB PO ONE (08:06)
[2022-06-23] MEDS: INSULIN ASPART PER UNIT SC SCH ×4 (08:16→20:46)
[2022-06-23] MEDS: AMIODARONE 200 MG TAB PO SCH (08:17)
[2022-06-23] MEDS: ADVANCED PROBIOTIC 1250 MG CAPSULE PO SCH (08:17)
[2022-06-23] MEDS: NEPHROCAPS PO SCH ×2 (08:18→20:52)
[2022-06-23] MEDS: FLUTICASONE PROPIONATE NA SPR 16 GM BTL SCH (08:18)
[2022-06-23] MEDS: BRIMONIDINE TARTRATE 0.2% 5ML OP SCH ×2 (08:21→20:47)
--- NOTE | 2022-06-23 08:31 | Hospitalist Progress Note ---
Date of Service June 23, 2022 Assessment & Plan (1) Sacral osteomyelitis: Plan per previous hospitalist notes with addendum: Sacral Wound Osteomyelitis ( Biopsy confirmed on 06/10) Has undergone multiple debridement; last one in 06/10/2022. Had wound VAC placed but got dislodged. Currently on daily dressing. Sacral Wound Grew: Enterococcus VRE on 05/27/2022 Source likely stage IV sacral ulcer with likely underlying osteomyelitis Initially was on broad spectrum abx with intravenous cefepime, daptomycin and oral fluconazole S/P debridement of sacral ulcer with bone biopsy on 05/27/2022 and repeat debridement 06/10 Evaluated by surgery and ID- recommendations noted Plan: Discussed over the phone with infectious disease (Dr. Mclean) over the phone on 06/14. He suggested daptomycin for 3 more weeks. However, given the extent of her sacral wound; infection control is difficult. Recommend aggressive wound care. Discussed with family at bedside; they do not want her to go to [facility]. Would prefer her to go to [facility]. We will continue aggressive wound care daily while inpatient. . Appreciate surgery recommendation. 06/22 Tolerating daptomycin IV well (needs 2 more weeks of IV daptomycin per ID recommendations) stable overall still having significant pain over the sacral wound area Pain management service consulted-tramadol changed to hydrocodone, continue gabapentin HS, continue IV Dilaudid as needed, Headache CT head: negative resolved Adjustment disorder with depressed mood Appreciate psychiatrist input and recommendation Vitamin B12, folate and TSH are normal stable Anemia: Chronic anemia in the setting of ESRD and GI losses (reported but not observed) and phlebotomy Was reportedly getting ?EPO injections with HD per Patient - continue EPO per renal No signs of active bleeding Positive FOBT S/P PRBCs during HD Monitor CBC: ~ Hgb 8 New onset atrial fibrillation: On amiodarone 200mg once daily. On Coumadin 1.5mg. INR is 4.3 HOLD coumadin INR tomorrow Ulcer of sacral region, stage 4: - plan as above. Radiation necrosis of skin and subcutaneous: - plan as above Acute hyponatremia: - likely due to sepsis and decrease po intake Sodium level stable Monitor End-stage renal disease (ESRD): Has been on HD for the past year, per patient Normal HD schedule MWF Continue hemodialysis as per Nephrology Diabetes: Continue insulin per protocol Hypothyroid: TSH 22, FT4 <0.25 unclear if patient taking medication appropriately TSH normalized with restarting levothyroxine Thrombocytopenia: unclear chronicity likely consumption in sepsis, ESRD, chronic illness no signs of bleeding resolved Coagulopathy: Monitor INR: 9.6>3.1>2.7>3.6->3.4->2.1->2 > 2.5> 2.1> 1.8 No obvious bleeding issues INR 4.3--> hold coumadin, repeat INR tomorrow Plan DVT px:HOLD coumadin Dispo- awaiting placement to SNF Code Status: DNI/DNR Admission and Anticipated Discharge Date Admission Date: May 14, 2022 Subjective Follow-up for sacral osteomyelitis, ESRD, etc. Pt seen on dialysis laying in bed , in NAD Pain seems improved today Pain management - now on gabapentin, hydrocodone, stopped tramadol No shortness of breath, chest pain, dizziness, palpitations, nausea vomiting No other symptoms Review of Systems Review of Systems: All systems reviewed & are unremarkable except as noted in Subjective Physical Exam Physical Exam: General- oriented x 3, not in distress, on HD, speaks in full sentences with no effort or accessory muscle use Eyes- EOMI, anicteric Neck- no JVD Lungs- anteriorly clear BS bilaterally, no rales/wheezes Heart- normal rate, regular rhythm; no murmurs Abdomen- normal bowel sounds, nondistended, soft, nontender Back - significant sacral wound - reviewed photo by wound care in [facility] Extremities-mild bilateral lower extremity edema, no calf tenderness Neuro- alert, oriented x 3; no gross focal neurologic deficits Skin- warm & dry Results & Data Results & Data ([facility]) Vital Signs (Past 12 Hours) Vital Signs Temp Pulse Pulse Resp BP Pulse Ox O2 Del Method 06/23/22 03:56 36.9 C 78 18 84/51 L 100 Nasal Cannula 06/22/22 23:44 36.4 C L 73 18 88/55 L 100 Nasal Cannula 06/22/22 22:45 69 06/22/22 20:49 36.4 C L 111 H 20 91/59 L 99 Nasal Cannula O2 Flow Rate 06/23/22 03:56 2 06/22/22 23:44 2 06/22/22 22:45 06/22/22 20:49 2 Laboratory Results 06/23/22 06/22/22 06/22/22 Range/Units 07:29 20:48 16:10 POC Glucose 154 H 148 H 104 H (70-99) mg/dl 06/22/22 Range/Units 11:15 POC Glucose 162 H (70-99) mg/dl Medications Administered Current Inpatient Medications Acetaminophen (Acetaminophen 325 Mg Tab) 650 mg PO Q8H PRN PRN Reason: Mild pain Stop: 07/11/22 11:59 Last Admin: 06/22/22 18:17 Dose: 650 mg Hydrocodone Bitart/Acetaminophen (Hydrocodone/Acetamophen 5/325mg Tab) 1 tab PO Q6H PRN PRN Reason: Pain Stop: 07/06/22 08:25 Last Admin: 06/23/22 06:42 Dose: 1 tab Amiodarone HCl (Amiodarone 200 Mg Tab) 200 mg PO DAILY ROSA M Stop: 07/05/22 23:59 Last Admin: 06/23/22 08:17 Dose: 200 mg Brimonidine Tartrate (Brimonidine Tartrate 0.2% 5ml) 1 drops OP BID ROSA M Stop: 06/28/22 08:59 Last Admin: 06/23/22 08:21 Dose: 1 drops Collagenase (Collagenase Oint 30 Gm Tube) 1 appln EXT DAILY ROSA M Stop: 07/15/22 12:44 Last Admin: 06/23/22 06:27 Dose: 1 appln Diphenhydramine HCl (Diphenhydramine Capsule 25 Mg Cap) 25 mg PO BID PRN PRN Reason: Allergy Symptoms Stop: 07/09/22 20:12 Last Admin: 06/19/22 19:18 Dose: 25 mg Epoetin Felipe (Epoetin Felipe 20,000 Units/Ml Vial) 20,000 units IV ONE ONE Stop: 06/23/22 08:00 Fluticasone Propionate (Fluticasone Propionate Na Spr 16 Gm Btl) 2 sprays NA DAILY ROSA M Stop: 07/12/22 22:24 Last Admin: 06/23/22 08:18 Dose: 2 sprays Gabapentin (Gabapentin 300 Mg Cap) 300 mg PO HS ROSA M Stop: 07/22/22 20:59 Last Admin: 06/22/22 20:56 Dose: 300 mg Hydromorphone HCl (Hydromorphone Inj 0.5 Mg/0.5 Ml Syr) 0.25 mg IV Q6H PRN PRN Reason: Pain Stop: 07/05/22 12:52 Last Admin: 06/22/22 05:15 Dose: 0.25 mg Daptomycin 550 mg/ Syringe 11 mls @ 5.5 mls/min IV MoWe@1400 ROSA M; Protocol Stop: 07/05/22 13:59 Last Admin: 06/21/22 14:41 Dose: 5.5 mls/min Daptomycin 800 mg/ Syringe 16 mls @ 8 mls/min IV Fr@1400 ROSA M; Protocol Stop: 07/02/22 13:59 Last Admin: 06/18/22 15:18 Dose: 8 mls/min Albumin Human (Albumin 25%) 12.5 gm in 50 mls @ 50 mls/hr IV ONCE ONE Last Infusion: 06/14/22 13:33 Dose: Infused Albumin Human (Albumin 25%) 12.5 gm in 50 mls @ 50 mls/hr IV ONCE ONE Last Infusion: 06/14/22 13:33 Dose: Infused Sodium Chloride (Nss 1000ml) 1,000 mls @ 0 mls/hr IV .Q0M PRN PRN Reason: For Hemodialysis Use ONLY Stop: 06/23/22 13:58 Iron Sucrose 100 mg/ Syringe 5 mls @ 1 mls/min IV 0900 ONE Stop: 06/23/22 09:04 Albumin Human (Albumin 25%) 12.5 gm in 50 mls @ 50 mls/hr IV ONCE ONE Stop: 06/23/22 08:58 Albumin Human (Albumin 25%) 12.5 gm in 50 mls @ 50 mls/hr IV ONCE ONE Stop: 06/23/22 08:58 Insulin Aspart (Insulin Aspart Per Unit) 0 units SC ACHS [facility]; Protocol Stop: 07/16/22 11:29 Last Admin: 06/23/22 08:16 Dose: 12 units Insulin Glargine (Lantus Per Unit Charge) 14 units SQ HS ROSA M; Protocol Stop: 07/17/22 20:59 Last Admin: 06/22/22 20:55 Dose: 14 units Lactobacillus Acidophilus (Advanced Probiotic 1250 Mg Capsule) 2 cap PO DAILY ROSA M Stop: 06/23/22 16:44 Last Admin: 06/23/22 08:17 Dose: 2 cap Latanoprost (Latanoprost 0.005% Op Soln 2.5 Ml Btl) 1 drops OPB HS [facility] Stop: 07/17/22 21:04 Last Admin: 06/22/22 20:56 Dose: 1 drops Levothyroxine Sodium (Levothyroxine Sodium 150 Mcg Tablet) [facility] Stop: 07/05/22 06:29 Last Admin: 06/23/22 06:04 Dose: 150 mcg Menthol (Cough Drop (Sugar Free) Norman 24 Norman/1 Box) 1 norman BUCCAL Q2H PRN PRN Reason: Sore Throat Stop: 07/10/22 17:08 Last Admin: 06/11/22 23:23 Dose: 1 norman Midodrine (Midodrine Hcl 10 Mg Tab) 10 mg PO ONE ONE Stop: 06/23/22 08:07 Miscellaneous (Daptomycin Post-Hd - Pending Order) 1 each N/A SandaruThSa@1800 [facility] Stop: 07/01/22 17:59 Last Admin: 06/22/22 17:27 Dose: Not Given Nitroglycerin (Nitroglycerin Sl 0.4 Mg/Tab Tab) 0.4 mg SL PRN PRN PRN Reason: Chest Pain Stop: 07/15/22 18:44 Polyethylene Glycol (Polyethylene (Miralax) 17 Gm Pack) 17 gm PO DAILY PRN PRN Reason: Constipation Stop: 06/28/22 16:06 Last Admin: 06/17/22 21:29 Dose: 17 gm Ropinirole HCl (Ropinirole Hcl 0.25 Mg Tablet) 0.25 mg PO [facility] Stop: 07/15/22 20:59 Last Admin: 06/22/22 20:56 Dose: 0.25 mg Vitamin B Complex/Folic Acid (Nephrocaps) 1 cap PO BID [facility] Stop: 07/09/22 12:14 Last Admin: 06/23/22 08:18 Dose: 1 cap Warfarin Sodium (Warfarin Sod 0.5 Mg Tab) 1.5 mg PO DAILY@1600 [facility] Stop: 07/11/22 15:59 Last Admin: 06/20/22 16:57 Dose: 1.5 mg
[2022-06-23] MEDS ORDERED: IRON SUCROSE 100 MG in SYRINGE 0 ML IV ONE (09:00)
--- NOTE | 2022-06-23 09:37 | Pain Management Progress Note ---
Date of Service June 23, 2022 Assessment & Plan (1) Sacral osteomyelitis: (2) Ulcer of sacral region, stage 4: (3) End-stage renal disease (ESRD): (4) Hemodialysis patient: Plan 1. Will recommend continue with hydrocodone 5/325 1 tablet p.o. every 6 hours for as needed breakthrough pain. We again discussed pain scale reporting and expectations with opiate utilization. Would hesitate to add long-acting opiate therapy given her ESRD/hemodialysis status. 2. Consider Nucynta therapy but concern over affordability in the outpatient setting 3. Maintain gabapentin 300 mg nightly 4. Patient will continue with Tylenol 650 mg every 8 hours 5. Pain service will sign off on patient at this time. Please contact pain service for reevaluation as needed. Admission and Anticipated Discharge Date Admission Date: May 14, 2022 Subjective Mrs. Beck is a 67-year white female with large open sacral wound infection with underlying osteomyelitis who is complaining of burning pain in the sacral region extending towards the hips bilaterally and equal. She was transitioned to hydrocodone yesterday with reported improved pain scales throughout yesterd ay. The patient reports today moderate efficacy from hydrocodone. She again reports her pain is a 10/10 although is sitting quietly eating her breakfast in no acute distress. She is tolerating the hydrocodone without notable side effects. Gabapentin dose was increased to 300 mg nightly without notable side effect per her report. Patient denies change in location or characteristic of her typical pain. She reported moderate increased pain with dressing change this morning. Plan of care discussed with Dr. Tammy Rojas. Pain Assessment Pain Assessment Full Body Front + Back: 1. Sacral region extending towards hips bilaterally Pain scale - at its best (0-10): 3 Pain scale - at its worst (0-10): 10 Physical Exam Physical Exam: General: Patient sitting up eating breakfast upon entering the room in no acute distress. Speech and thought process was appropriate. Mood and affect appropriate. Cognition intact. Neurological and cranial nerves grossly intact. Ambulation not witnessed.
[2022-06-23] MEDS: MIDODRINE HCL 10 MG TAB PO SCH (10:13)
[2022-06-23] MEDS: DAPTOmycin 550 MG in SYRINGE 0 ML IV SCH (13:50)
--- NOTE | 2022-06-23 14:38 | Dialysis Progress Note ---
Date of Service June 23, 2022 Assessment & Plan (1) End-stage renal disease (ESRD): Plan: for HD today w/ goal 3 L off > got 2.5 L w/ albumin and midodrine. believe we are on wrong part of starling curve for her heart contractility/forward output d/t fluid OL and will work best we can on whittling that down >eval for HD again tomorrow >her hypotension is best managed w/ HD in my opinion > would reserve albumin, midodrine for optimizing BP for fluid removal; would assess pt for sx of low BP before treating; could also consider repeat w/u for sepsis >>next HD for tomorrow pending pt eval (2) Osteomyelitis: Plan: on dapto and pharmacy following/ supplementing doses with extra HD txs Admission and Anticipated Discharge Date Admission Date: May 14, 2022 Subjective no interval events. interactive, arguing w/ me about UF and BP and body position even w/ SBP 66 Review of Systems Review of Systems: All systems reviewed & are unremarkable except as noted in Subjective Physical Exam Constitutional: well developed, well nourished, + ill appearing, + obese, + frail appearing and cooperative; no acute distress Eyes: EOM intact bilaterally ENMT: Ears: no external ear abnormality Nose: no external nose abnormality Mouth: + dry oral mucous membranes Neck: no nuchal rigidity Respiratory: normal respiratory effort (on 2L 02nc), + respiratory distress and able to speak in complete sentences; no labored breathing, does not use accessory muscles, no cough and not tachypneic Auscultation: + diminished lung sounds Cardiovascular: Rate/Rhythm: regular rate, regular rhythm and + tachycardic Extremities: + edema (1++ dependent BLE) Gastrointestinal (Abdomen): Inspection/Auscultation: abdomen normal to inspection (w/ colostomy present) and normal bowel sounds Percussion/Palpation: abdomen soft; abdomen nontender Musculoskeletal: Extremities: + abnormal strength Skin: no rashes, warm and dry (sacral wound not examined) Psychiatric: Orientation: oriented to person, oriented to place and cooperative Affect: euthymic affect Insight: + limited insight Results & Data ([facility] [place]) Vital Signs (Past 12 Hours) Vital Signs Temp Pulse Pulse Resp BP BP Pulse Ox 06/23/22 12:36 36.7 C 81 91/42 L 06/23/22 12:30 70 89/43 L 06/23/22 12:00 75 84/42 L 06/23/22 11:30 74 81/40 L 06/23/22 11:00 51 L 70/39 L 06/23/22 10:30 76 81/41 L 06/23/22 10:00 80 74/37 L 06/23/22 09:30 75 76/40 L 06/23/22 09:00 36.7 C 75 06/23/22 03:56 36.9 C 78 18 84/51 L 100 O2 Del Method O2 Flow Rate 06/23/22 12:36 06/23/22 12:30 06/23/22 12:00 06/23/22 11:30 06/23/22 11:00 06/23/22 10:30 06/23/22 10:00 06/23/22 09:30 06/23/22 09:00 06/23/22 03:56 Nasal Cannula 2 Laboratory Results 06/21/22 05:30 06/21/22 05:30 (1) Osteomyelitis Osteomyelitis location: unspecified site Osteomyelitis type: unspecified type Qualified Code(s): M86.9 - Osteomyelitis, unspecified
[2022-06-23] MEDS: HYDROmorphone INJ 0.5 MG/0.5 ML SYR IV PRN (16:37)
[2022-06-23] MEDS: WARFARIN SOD 0.5 MG TAB PO SCH (17:27)
[2022-06-23] MEDS: LATANOPROST 0.005% OP SOLN 2.5 ML BTL OPB SCH (20:47)
[2022-06-23] MEDS: LANTUS PER UNIT CHARGE SQ SCH (20:47)
[2022-06-23] MEDS: rOPINIRole HCL 0.25 MG TABLET PO SCH (20:51)
[2022-06-23] MEDS: GABAPENTIN 300 MG CAP PO SCH (20:51)
[2022-06-24] MEDS: LEVOTHYROXINE SODIUM 150 MCG TABLET PO SCH (05:31)
[2022-06-24] MEDS: HYDROCODONE/ACETAMOPHEN 5/325MG TAB PO PRN ×3 (05:31→20:55)
[2022-06-24] MEDS: COLLAGENASE OINT 30 GM TUBE EXT SCH (05:59)
[2022-06-24] MEDS ORDERED: EPOETIN ALFA 20,000 UNITS/ML VIAL IV ONE (06:34)
[2022-06-24] MEDS ORDERED: SODIUM CHLORIDE 0.9% 1000ML 1,000 ML IV PRN (06:34)
[2022-06-24] MEDS ORDERED: MIDODRINE HCL 10 MG TAB PO ONE (06:45)
[2022-06-24] MEDS ORDERED: IRON SUCROSE 100 MG in SYRINGE 0 ML IV ONE (07:00)
[2022-06-24] MEDS ORDERED: ALBUMIN 25% 12.5 GM/50 ML VIAL IV ONE ×2 (07:30→09:00)
[2022-06-24] MEDS ORDERED: HEPARIN SOD (PORCINE) 1000 UNIT/ML IV SCH (07:30)
[2022-06-24] MEDS: INSULIN ASPART PER UNIT SC SCH ×4 (08:10→22:23)
[2022-06-24] MEDS: BRIMONIDINE TARTRATE 0.2% 5ML OP SCH ×2 (08:21→20:57)
[2022-06-24] MEDS: FLUTICASONE PROPIONATE NA SPR 16 GM BTL SCH (08:21)
[2022-06-24] MEDS: NEPHROCAPS PO SCH ×2 (08:41→21:00)
[2022-06-24] MEDS: AMIODARONE 200 MG TAB PO SCH (08:41)
[2022-06-24 08:51] LABS: Hematocrit (blood only) 27.4 % (34.1-44.9); Mean Corpuscular Hemoglobin 30.3 pg (25.0-34.0); Mean Corpuscular Hgb Conc 29.2 g/dL (32.0-36.0); Mean Corpuscular Volume 103.8 fL (80.0-100.0); Mean Platelet Volume 10.5 fL (9.4-12.3); Nucleated RBC # (auto) 0.02 K/uL (0-0); Nucleated RBC % (auto) 0.2 %; Platelet Count 200 K/uL (130-400); RDW Coefficient of Variation 22.2 % (11.5-14.5); RDW Standard Deviation 82.9 fL (36.4-46.3); Red Blood Count 2.64 M/uL (3.93-5.22); White Blood Count 12.24 K/ul (4.8-10.8)
[2022-06-24 09:11] LABS: Prothrombin Time 55.1 Seconds (9.0-12.0)
[2022-06-24 09:14] LABS: BUN Creatinine Ratio 11.8 (10-20); Calcium 8.4 mg/dl (8.5-10.1); Creatinine Clr Calc Pharmacy 23.6 ml/min; Est GFR (African American) 24.6 ml/min; Est GFR (Non-African American) 21.2 ml/min; INR 5.7 (0.9-1.1); Potassium 3.3 mmol/L (3.5-5.1)
[2022-06-24] MEDS: HEPARIN SOD (PORCINE) 1000 UNIT/ML IV SCH (11:26)
--- NOTE | 2022-06-24 16:06 | Hospitalist Progress Note ---
Date of Service June 24, 2022 Assessment & Plan (1) Sacral osteomyelitis: Plan per previous hospitalist notes with addendum: Sacral Wound Osteomyelitis ( Biopsy confirmed on 06/10) Has undergone multiple debridement; last one in 06/10/2022. Had wound VAC placed but got dislodged. Currently on daily dressing. Sacral Wound Grew: Enterococcus VRE on 05/27/2022 Source likely stage IV sacral ulcer with likely underlying osteomyelitis Initially was on broad spectrum abx with intravenous cefepime, daptomycin and oral fluconazole S/P debridement of sacral ulcer with bone biopsy on 05/27/2022 and repeat debridement 06/10 Evaluated by surgery and ID- recommendations noted Plan: Discussed over the phone with infectious disease (Dr. Mclean) over the phone on 06/14. He suggested daptomycin for 3 more weeks. However, given the extent of her sacral wound; infection control is difficult. Recommend aggressive wound care. Discussed with family at bedside; they do not want her to go to [facility]. Would prefer her to go to [facility]. We will continue aggressive wound care daily while inpatient. . Appreciate surgery recommendation. 06/22 Tolerating daptomycin IV well (needs 2 more weeks of IV daptomycin per ID recommendations) stable overall still having significant pain over the sacral wound area Pain management service consulted-tramadol changed to hydrocodone, continue gabapentin HS, continue IV Dilaudid as needed 06/24 - pain seems to be improved, but continues to feel some "burning" in sacral area Headache CT head: negative resolved Adjustment disorder with depressed mood Appreciate psychiatrist input and recommendation Vitamin B12, folate and TSH are normal stable Anemia: Chronic anemia in the setting of ESRD and GI losses (reported but not observed) and phlebotomy Was reportedly getting ?EPO injections with HD per Patient - continue EPO per renal No signs of active bleeding Positive FOBT S/P PRBCs during HD Monitor CBC: ~ Hgb 8 New onset atrial fibrillation: On amiodarone 200mg once daily. On Coumadin 1.5mg. INR above 5 HOLD coumadin monitor INR Ulcer of sacral region, stage 4: - plan as above. Radiation necrosis of skin and subcutaneous: - plan as above Acute hyponatremia: - likely due to sepsis and decrease po intake Sodium level stable Monitor End-stage renal disease (ESRD): Has been on HD for the past year, per patient Normal HD schedule MWF Continue hemodialysis as per Nephrology Diabetes: Continue insulin per protocol Hypothyroid: TSH 22, FT4 <0.25 unclear if patient taking medication appropriately TSH normalized with restarting levothyroxine Thrombocytopenia: unclear chronicity likely consumption in sepsis, ESRD, chronic illness no signs of bleeding resolved Coagulopathy: Monitor INR: 9.6>3.1>2.7>3.6->3.4->2.1->2 > 2.5> 2.1> 1.8 No obvious bleeding issues INR above 5 --> hold coumadin, monitor INR Plan DVT px:HOLD coumadin Dispo- awaiting placement to SNF Code Status: DNI/DNR Admission and Anticipated Discharge Date Admission Date: May 14, 2022 Subjective Follow-up for sacral osteomyelitis, ESRD, etc. Pt seen on dialysis laying in bed , in NAD Reports some pain, burning in sacral wound area Pain management - now on gabapentin, hydrocodone, stopped tramadol No fever, chills, shortness of breath, chest pain, dizziness, palpitations, nausea vomiting Review of Systems Review of Systems: All systems reviewed & are unremarkable except as noted in Subjective Physical Exam Physical Exam: General- awake and alert, not in distress, on HD, speaks in full sentences with no effort or accessory muscle use Eyes- EOMI, anicteric Neck- no JVD Lungs- anteriorly clear BS bilaterally, no rales/wheezes Heart- normal rate, regular rhythm; no murmurs Abdomen- normal bowel sounds, nondistended, soft, nontender Back - significant sacral wound - reviewed photo by wound care in [facility] Extremities-mild bilateral lower extremity edema, no calf tenderness, Neuro- alert, oriented x 3; no gross focal neurologic deficits Skin- warm & dry Results & Data Results & Data ([facility]) Vital Signs (Past 12 Hours) Vital Signs Temp Pulse Pulse Resp BP BP Pulse Ox 06/24/22 14:20 36.7 C 83 107/55 L 06/24/22 14:00 84 92/42 L 06/24/22 13:30 84 92/42 L 06/24/22 13:00 86 94/46 L 06/24/22 12:30 79 81/40 L 06/24/22 12:00 73 99/68 L 06/24/22 11:30 81 92/41 L 06/24/22 11:10 36.5 C 85 06/24/22 08:00 06/24/22 08:00 96 H 06/24/22 07:29 37.1 C 85 18 84/48 L 97 O2 Del Method O2 Flow Rate 06/24/22 14:20 06/24/22 14:00 06/24/22 13:30 06/24/22 13:00 06/24/22 12:30 06/24/22 12:00 06/24/22 11:30 06/24/22 11:10 06/24/22 08:00 Nasal Cannula 2 06/24/22 08:00 06/24/22 07:29 Nasal Cannula 2 Laboratory Results 06/24/22 06/24/22 06/24/22 Range/Units 15:58 14:33 10:22 WBC (4.8-10.8) K/ul RBC (3.93-5.22) M/uL Hgb (12.0-16.0) g/dl Hct (34.1-44.9) % MCV (80.0-100.0) fL MCH (25.0-34.0) pg MCHC (32.0-36.0) g/dL RDW Std Deviation (36.4-46.3) fL RDW Coeff of Josh (11.5-14.5) % Plt Count (130-400) K/uL MPV (9.4-12.3) fL Absolute Nucleated RBC (0-0) K/uL Nucleated RBC % (auto) % PT (9.0-12.0) Seconds INR (0.9-1.1) Sodium (136-145) mmol/L Potassium (3.5-5.1) mmol/L Chloride (98-107) mmol/L Carbon Dioxide (21-32) mmol/L Anion Gap (3-11) BUN (6-23) mg/dl Creatinine (0.6-1.2) mg/dl Est Cr Clr Drug Dosing ml/min Est GFR ( Amer) ml/min Est GFR (Non-Af Amer) ml/min BUN/Creatinine Ratio (10-20) Glucose (70-99(Fasting)) mg/dl POC Glucose 142 H 70 (70-99) mg/dl Calcium (8.5-10.1) mg/dl Total Creatine Kinase 21 L (26-192) U/L 09/11/1406/24/22 06/24/22 Range/Units 08:30 08:30 08:30 WBC 12.24 H (4.8-10.8) K/ul RBC 2.64 L (3.93-5.22) M/uL Hgb 8.0 L (12.0-16.0) g/dl Hct 27.4 L (34.1-44.9) % MCV 103.8 H (80.0-100.0) fL MCH 30.3 (25.0-34.0) pg MCHC 29.2 L (32.0-36.0) g/dL RDW Std Deviation 82.9 H (36.4-46.3) fL RDW Coeff of Josh 22.2 H (11.5-14.5) % Plt Count 200 (130-400) K/uL MPV 10.5 (9.4-12.3) fL Absolute Nucleated RBC 0.02 H (0-0) K/uL Nucleated RBC % (auto) 0.2 % PT 55.1 H (9.0-12.0) Seconds INR 5.7 H* (0.9-1.1) Sodium 135 L (136-145) mmol/L Potassium 3.3 L (3.5-5.1) mmol/L Chloride 102 (98-107) mmol/L Carbon Dioxide 27 (21-32) mmol/L Anion Gap 6 (3-11) BUN 27 H (6-23) mg/dl Creatinine 2.29 H (0.6-1.2) mg/dl Est Cr Clr Drug Dosing 23.6 ml/min Est GFR ( Amer) 24.6 ml/min Est GFR (Non-Af Amer) 21.2 ml/min BUN/Creatinine Ratio 11.8 (10-20) Glucose 122 H (70-99(Fasting)) mg/dl POC Glucose (70-99) mg/dl Calcium 8.4 L (8.5-10.1) mg/dl Total Creatine Kinase (26-192) U/L 06/24/22 06/23/22 06/23/22 Range/Units 07:27 20:40 16:18 WBC (4.8-10.8) K/ul RBC (3.93-5.22) M/uL Hgb (12.0-16.0) g/dl Hct (34.1-44.9) % MCV (80.0-100.0) fL MCH (25.0-34.0) pg MCHC (32.0-36.0) g/dL RDW Std Deviation (36.4-46.3) fL RDW Coeff of Josh (11.5-14.5) % Plt Count (130-400) K/uL MPV (9.4-12.3) fL Absolute Nucleated RBC (0-0) K/uL Nucleated RBC % (auto) % PT (9.0-12.0) Seconds INR (0.9-1.1) Sodium (136-145) mmol/L Potassium (3.5-5.1) mmol/L Chloride (98-107) mmol/L Carbon Dioxide (21-32) mmol/L Anion Gap (3-11) BUN (6-23) mg/dl Creatinine (0.6-1.2) mg/dl Est Cr Clr Drug Dosing ml/min Est GFR ( Amer) ml/min Est GFR (Non-Af Amer) ml/min BUN/Creatinine Ratio (10-20) Glucose (70-99(Fasting)) mg/dl POC Glucose 93 175 H 252 H (70-99) mg/dl Calcium (8.5-10.1) mg/dl Total Creatine Kinase (26-192) U/L Medications Administered Current Inpatient Medications Acetaminophen (Acetaminophen 325 Mg Tab) 650 mg PO Q8H PRN PRN Reason: Mild pain Stop: 07/11/22 11:59 Last Admin: 06/23/22 20:56 Dose: 650 mg Hydrocodone Bitart/Acetaminophen (Hydrocodone/Acetamophen 5/325mg Tab) 1 tab PO Q6H PRN PRN Reason: Pain Stop: 07/06/22 08:25 Last Admin: 06/24/22 14:48 Dose: 1 tab Amiodarone HCl (Amiodarone 200 Mg Tab) 200 mg PO DAILY ROSA M Stop: 07/05/22 23:59 Last Admin: 06/24/22 08:41 Dose: 200 mg Brimonidine Tartrate (Brimonidine Tartrate 0.2% 5ml) 1 drops OP BID ROSA M Stop: 06/28/22 08:59 Last Admin: 06/24/22 08:21 Dose: 1 drops Collagenase (Collagenase Oint 30 Gm Tube) 1 appln EXT DAILY [facility] Stop: 07/15/22 12:44 Last Admin: 06/24/22 05:59 Dose: 1 appln Diphenhydramine HCl (Diphenhydramine Capsule 25 Mg Cap) 25 mg PO BID PRN PRN Reason: Allergy Symptoms Stop: 07/09/22 20:12 Last Admin: 06/19/22 19:18 Dose: 25 mg Fluticasone Propionate (Fluticasone Propionate Na Spr 16 Gm Btl) 2 sprays NA DAILY [facility] Stop: 07/12/22 22:24 Last Admin: 06/24/22 08:21 Dose: Not Given Gabapentin (Gabapentin 300 Mg Cap) 300 mg PO HS [facility] Stop: 07/22/22 20:59 Last Admin: 06/23/22 20:51 Dose: 300 mg Heparin Sodium (Porcine) (Heparin Sod (Porcine) 1000 Unit/Ml) 1,000 units IV TODAY@0730 [facility] Stop: 06/24/22 20:00 Last Admin: 06/24/22 11:26 Dose: Not Given Hydromorphone HCl (Hydromorphone Inj 0.5 Mg/0.5 Ml Syr) 0.25 mg IV Q6H PRN PRN Reason: Pain Stop: 07/05/22 12:52 Last Admin: 06/23/22 16:37 Dose: 0.25 mg Daptomycin 550 mg/ Syringe 11 mls @ 5.5 mls/min IV MoWe@1400 ROSA M; Protocol Stop: 07/05/22 13:59 Last Admin: 06/23/22 13:50 Dose: 5.5 mls/min Daptomycin 800 mg/ Syringe 16 mls @ 8 mls/min IV Fr@1400 ROSA M; Protocol Stop: 07/02/22 13:59 Last Admin: 06/18/22 15:18 Dose: 8 mls/min Albumin Human (Albumin 25%) 12.5 gm in 50 mls @ 50 mls/hr IV ONCE ONE Last Infusion: 06/14/22 13:33 Dose: Infused Albumin Human (Albumin 25%) 12.5 gm in 50 mls @ 50 mls/hr IV ONCE ONE Last Infusion: 06/14/22 13:33 Dose: Infused Insulin Aspart (Insulin Aspart Per Unit) 0 units SC [facility]; Protocol Stop: 07/16/22 11:29 Last Admin: 06/24/22 14:49 Dose: Not Given Insulin Glargine (Lantus Per Unit Charge) 14 units SQ [facility]; Protocol Stop: 07/17/22 20:59 Last Admin: 06/23/22 20:47 Dose: 14 units Latanoprost (Latanoprost 0.005% Op Soln 2.5 Ml Btl) 1 drops OPB [facility] Stop: 07/17/22 21:04 Last Admin: 06/23/22 20:47 Dose: 1 drops Levothyroxine Sodium (Levothyroxine Sodium 150 Mcg Tablet) [facility] Stop: 07/05/22 06:29 Last Admin: 06/24/22 05:31 Dose: 150 mcg Menthol (Cough Drop (Sugar Free) Norman 24 Norman/1 Box) 1 norman BUCCAL Q2H PRN PRN Reason: Sore Throat Stop: 07/10/22 17:08 Last Admin: 06/11/22 23:23 Dose: 1 norman Miscellaneous (Daptomycin Post-Hd - Pending Order) 1 each N/A SandrauThSa@1800 [facility] Stop: 07/01/22 17:59 Last Admin: 06/22/22 17:27 Dose: Not Given Nitroglycerin (Nitroglycerin Sl 0.4 Mg/Tab Tab) 0.4 mg SL PRN PRN PRN Reason: Chest Pain Stop: 07/15/22 18:44 Polyethylene Glycol (Polyethylene (Miralax) 17 Gm Pack) 17 gm PO DAILY PRN PRN Reason: Constipation Stop: 06/28/22 16:06 Last Admin: 06/17/22 21:29 Dose: 17 gm Ropinirole HCl (Ropinirole Hcl 0.25 Mg Tablet) 0.25 mg PO [facility] Stop: 07/15/22 20:59 Last Admin: 06/23/22 20:51 Dose: 0.25 mg Vitamin B Complex/Folic Acid (Nephrocaps) 1 cap PO BID [facility] Stop: 07/09/22 12:14 Last Admin: 06/24/22 08:41 Dose: 1 cap Warfarin Sodium (Warfarin Sod 0.5 Mg Tab) 1.5 mg PO DAILY@1600 [facility] Stop: 07/11/22 15:59 Last Admin: 06/23/22 17:27 Dose: 1.5 mg
--- NOTE | 2022-06-24 18:50 | Nephrology Progress Note ---
Date of Service June 24, 2022 Assessment & Plan (1) End-stage renal disease (ESRD): Plan: for HD today w/ goal 3 L off > got 3 L w/ albumin and midodrine. believe we are on wrong part of starling curve for her heart contractility/forward output d/t fluid OL and will work best we can on whittling that down >eval for HD again tomorrow > gave 20 mEQ po K x 1 this evenign; not on dialyssi diet at this point >her hypotension is best managed w/ HD in my opinion > would reserve albumin, midodrine for optimizing BP for fluid removal; would assess pt for sx of low BP before treating; could also consider repeat w/u for sepsis Admission and Anticipated Discharge Date Admission Date: May 14, 2022 Subjective tolerated 3L UF at HD today; restless and wants to dangle feet off bed; adameant about thsi; c/o severe buttock pain Review of Systems Review of Systems: All systems reviewed & are unremarkable except as noted in Subjective Physical Exam Constitutional: well developed and well nourished Eyes: EOM intact bilaterally ENMT: Ears: no external ear abnormality Nose: no external nose abnormality Mouth: + dry oral mucous membranes Neck: no nuchal rigidity Respiratory: normal respiratory effort Auscultation: + diminished lung sounds Cardiovascular: Rate/Rhythm: regular rate and regular rhythm Extremities: + edema (1+) Gastrointestinal (Abdomen): Inspection/Auscultation: normal bowel sounds Percussion/Palpation: abdomen soft; abdomen nontender Musculoskeletal: Extremities: strength 5/5 throughout Skin: no rashes, warm and dry Neurologic: rider, fluent speech, no tremor Results & Data ([facility]) Vital Signs (Past 12 Hours) Vital Signs Temp Pulse Pulse Resp BP BP Pulse Ox 06/24/22 18:14 82/46 L 06/24/22 16:42 85 06/24/22 14:20 36.7 C 83 107/55 L 06/24/22 14:00 84 92/42 L 06/24/22 13:30 84 92/42 L 06/24/22 13:00 86 94/46 L 06/24/22 12:30 79 81/40 L 06/24/22 12:00 73 99/68 L 06/24/22 11:30 81 92/41 L 06/24/22 11:10 36.5 C 85 06/24/22 08:00 06/24/22 08:00 96 H 06/24/22 07:29 37.1 C 85 18 84/48 L 97 O2 Del Method O2 Flow Rate 06/24/22 18:14 06/24/22 16:42 06/24/22 14:20 06/24/22 14:00 06/24/22 13:30 06/24/22 13:00 06/24/22 12:30 06/24/22 12:00 06/24/22 11:30 06/24/22 11:10 06/24/22 08:00 Nasal Cannula 2 06/24/22 08:00 06/24/22 07:29 Nasal Cannula 2 Laboratory Results 06/24/22 08:30 06/24/22 08:30
[2022-06-24] MEDS ORDERED: POTASSIUM CHLORIDE CRTAB 20 MEQ TABCR PO STA (18:55)
[2022-06-24] MEDS: LATANOPROST 0.005% OP SOLN 2.5 ML BTL OPB SCH (21:03)
[2022-06-24] MEDS: LANTUS PER UNIT CHARGE SQ SCH (21:33)
[2022-06-24] MEDS: GABAPENTIN 300 MG CAP PO SCH (21:34)
[2022-06-24] MEDS: rOPINIRole HCL 0.25 MG TABLET PO SCH (21:35)
[2022-06-25] MEDS: LEVOTHYROXINE SODIUM 150 MCG TABLET PO SCH (05:59)
[2022-06-25] MEDS ORDERED: SODIUM CHLORIDE 0.9% 1000ML 1,000 ML IV PRN (07:42)
[2022-06-25] MEDS ORDERED: ALBUMIN 25% 12.5 GM/50 ML VIAL IV ONE ×2 (07:42)
[2022-06-25] MEDS ORDERED: HEPARIN SOD (PORCINE) 1000 UNIT/ML IV ONE (07:42)
[2022-06-25] MEDS ORDERED: MIDODRINE HCL 10 MG TAB PO SCH (07:45)
[2022-06-25] MEDS ORDERED: EPOETIN ALFA 20,000 UNITS/ML VIAL IV ONE (08:30)
[2022-06-25] MEDS ORDERED: IRON SUCROSE 100 MG in SYRINGE 0 ML IV ONE (08:30)
[2022-06-25] MEDS: AMIODARONE 200 MG TAB PO SCH (08:31)
[2022-06-25] MEDS: BRIMONIDINE TARTRATE 0.2% 5ML OP SCH ×2 (08:31→20:10)
[2022-06-25] MEDS: FLUTICASONE PROPIONATE NA SPR 16 GM BTL SCH ×2 (08:32→08:46)
[2022-06-25] MEDS: NEPHROCAPS PO SCH ×2 (08:32→20:11)
[2022-06-25] MEDS: INSULIN ASPART PER UNIT SC SCH ×4 (08:43→20:57)
[2022-06-25] MEDS: COLLAGENASE OINT 30 GM TUBE EXT SCH (08:46)
[2022-06-25] MEDS: HYDROCODONE/ACETAMOPHEN 5/325MG TAB PO PRN ×2 (09:00→20:09)
--- NOTE | 2022-06-25 09:18 | Hospitalist Progress Note ---
Date of Service June 25, 2022 Assessment & Plan (1) Sacral osteomyelitis: Plan per previous hospitalist notes with addendum: Sacral Wound Osteomyelitis ( Biopsy confirmed on 06/10) Has undergone multiple debridement; last one in 06/10/2022. Had wound VAC placed but got dislodged. Currently on daily dressing. Sacral Wound Grew: Enterococcus VRE on 05/27/2022 Source likely stage IV sacral ulcer with likely underlying osteomyelitis Initially was on broad spectrum abx with intravenous cefepime, daptomycin and oral fluconazole S/P debridement of sacral ulcer with bone biopsy on 05/27/2022 and repeat debridement 06/10 Evaluated by surgery and ID- recommendations noted Plan: Discussed over the phone with infectious disease (Dr. Mclean) over the phone on 06/14. He suggested daptomycin for 3 more weeks. However, given the extent of her sacral wound; infection control is difficult. Recommend aggressive wound care. Discussed with family at bedside; they do not want her to go to [facility]. Would prefer her to go to [facility]. We will continue aggressive wound care daily while inpatient. . Appreciate surgery recommendation. 06/22 Tolerating daptomycin IV well (needs 2 more weeks of IV daptomycin per ID recommendations - end date 07/05) stable overall still having significant pain over the sacral wound area Pain management service consulted-tramadol changed to hydrocodone, continue gabapentin HS, continue IV Dilaudid as needed 06/24 - pain seems to be improved, but continues to feel some "burning" in sacral area Headache CT head: negative resolved Adjustment disorder with depressed mood Appreciate psychiatrist input and recommendation Vitamin B12, folate and TSH are normal stable Anemia: Chronic anemia in the setting of ESRD and GI losses (reported but not observed) and phlebotomy Was reportedly getting ?EPO injections with HD per Patient - continue EPO per renal No signs of active bleeding Positive FOBT S/P PRBCs during HD Monitor CBC: ~ Hgb 8 New onset atrial fibrillation: On amiodarone 200mg once daily. On Coumadin 1.5mg. Decrease to 1mg. INR above 5 HOLD coumadin monitor INR Ulcer of sacral region, stage 4: - plan as above. Radiation necrosis of skin and subcutaneous: - plan as above Acute hyponatremia: - likely due to sepsis and decrease po intake Sodium level stable Monitor End-stage renal disease (ESRD): Has been on HD for the past year, per patient Normal HD schedule MWF Continue hemodialysis as per Nephrology Diabetes: Continue insulin per protocol Hypothyroid: TSH 22, FT4 <0.25 unclear if patient taking medication appropriately TSH normalized with restarting levothyroxine Thrombocytopenia: unclear chronicity likely consumption in sepsis, ESRD, chronic illness no signs of bleeding resolved Coagulopathy: Monitor INR: 9.6>3.1>2.7>3.6->3.4->2.1->2 > 2.5> 2.1> 1.8 No obvious bleeding issues INR above 3 --> hold coumadin, monitor INR Plan DVT px:HOLD coumadin Dispo- awaiting placement to SNF Code Status: DNI/DNR Admission and Anticipated Discharge Date Admission Date: May 14, 2022 Subjective Follow-up for sacral osteomyelitis, ESRD, etc. Pt seen on dialysis laying in bed , in NAD Reports some pain, burning in sacral wound area Pain management - now on gabapentin, hydrocodone, stopped tramadol No fever, chills, shortness of breath, chest pain, dizziness, palpitations, nausea vomiting Review of Systems Review of Systems: All systems reviewed & are unremarkable except as noted in Subjective Physical Exam Physical Exam: General- awake and alert, not in distress, on HD, speaks in full sentences with no effort or accessory muscle use Eyes- EOMI, anicteric Neck- no JVD Lungs- anteriorly clear BS bilaterally, no rales/wheezes Heart- normal rate, regular rhythm; no murmurs Abdomen- normal bowel sounds, nondistended, soft, nontender Back - significant sacral wound - reviewed photo by wound care in EMR Extremities- + bilateral lower extremity edema (improved), no calf tenderness, Neuro- alert, oriented x 3; no gross focal neurologic deficits Skin- warm & dry Results & Data Results & Data ([facility]) Vital Signs (Past 12 Hours) Vital Signs Temp Pulse Resp BP Pulse Ox O2 Del Method O2 Flow Rate 06/25/22 07:08 36.8 C 101 H 17 98/65 L 92 Nasal Cannula 2 06/25/22 03:10 36.5 C 78 18 92/55 L 93 06/24/22 23:27 36.5 C 78 18 88/53 L 99 Nasal Cannula Laboratory Results 06/25/22 06/25/22 06/25/22 Range/Units 09:38 09:38 07:05 PT 36.2 H (9.0-12.0) Seconds INR 3.6 H (0.9-1.1) Sodium 136 (136-145) mmol/L Potassium 3.7 (3.5-5.1) mmol/L Chloride 102 (98-107) mmol/L Carbon Dioxide 28 (21-32) mmol/L Anion Gap 6 (3-11) BUN 22 (6-23) mg/dl Creatinine 2.34 H (0.6-1.2) mg/dl Est Cr Clr Drug Dosing 23.0 ml/min Est GFR ( Amer) 24.0 ml/min Est GFR (Non-Af Amer) 20.7 ml/min BUN/Creatinine Ratio 9.4 L (10-20) Glucose 203 H (70-99(Fasting)) mg/dl POC Glucose 115 H (70-99) mg/dl Calcium 8.6 (8.5-10.1) mg/dl Phosphorus 2.0 L (2.5-4.9) mg/dl Magnesium 1.6 L (1.7-2.4) mg/dl 06/24/22 06/24/22 06/24/22 Range/Units 20:24 15:58 14:33 PT (9.0-12.0) Seconds INR (0.9-1.1) Sodium (136-145) mmol/L Potassium (3.5-5.1) mmol/L Chloride (98-107) mmol/L Carbon Dioxide (21-32) mmol/L Anion Gap (3-11) BUN (6-23) mg/dl Creatinine (0.6-1.2) mg/dl Est Cr Clr Drug Dosing ml/min Est GFR ( Amer) ml/min Est GFR (Non-Af Amer) ml/min BUN/Creatinine Ratio (10-20) Glucose (70-99(Fasting)) mg/dl POC Glucose 192 H 142 H 70 (70-99) mg/dl Calcium (8.5-10.1) mg/dl Phosphorus (2.5-4.9) mg/dl Magnesium (1.7-2.4) mg/dl Medications Administered Current Inpatient Medications Acetaminophen (Acetaminophen 325 Mg Tab) 650 mg PO Q8H PRN PRN Reason: Mild pain Stop: 07/11/22 11:59 Last Admin: 06/23/22 20:56 Dose: 650 mg Hydrocodone Bitart/Acetaminophen (Hydrocodone/Acetamophen 5/325mg Tab) 1 tab PO Q6H PRN PRN Reason: Pain Stop: 07/06/22 08:25 Last Admin: 06/24/22 20:55 Dose: 1 tab Amiodarone HCl (Amiodarone 200 Mg Tab) 200 mg PO DAILY ROSA M Stop: 07/05/22 23:59 Last Admin: 06/25/22 08:31 Dose: 200 mg Brimonidine Tartrate (Brimonidine Tartrate 0.2% 5ml) 1 drops OP BID ROSA M Stop: 06/28/22 08:59 Last Admin: 06/25/22 08:31 Dose: 1 drops Collagenase (Collagenase Oint 30 Gm Tube) 1 appln EXT DAILY ROSA M Stop: 07/15/22 12:44 Last Admin: 06/25/22 08:46 Dose: 1 appln Diphenhydramine HCl (Diphenhydramine Capsule 25 Mg Cap) 25 mg PO BID PRN PRN Reason: Allergy Symptoms Stop: 07/09/22 20:12 Last Admin: 06/19/22 19:18 Dose: 25 mg Fluticasone Propionate (Fluticasone Propionate Na Spr 16 Gm Btl) 2 sprays NA DAILY ROSA M Stop: 07/12/22 22:24 Last Admin: 06/25/22 08:46 Dose: 2 sprays Gabapentin (Gabapentin 300 Mg Cap) 300 mg PO HS ROSA M Stop: 07/22/22 20:59 Last Admin: 06/24/22 21:34 Dose: 300 mg Heparin Sodium (Porcine) (Heparin Sod (Porcine) 1000 Unit/Ml) 400 units IV Q1H ROSA M Stop: 06/25/22 09:46 Hydromorphone HCl (Hydromorphone Inj 0.5 Mg/0.5 Ml Syr) 0.25 mg IV Q6H PRN PRN Reason: Pain Stop: 07/05/22 12:52 Last Admin: 06/23/22 16:37 Dose: 0.25 mg Daptomycin 550 mg/ Syringe 11 mls @ 5.5 mls/min IV MoWe@1400 ROSA M; Protocol Stop: 07/05/22 13:59 Last Admin: 06/23/22 13:50 Dose: 5.5 mls/min Daptomycin 800 mg/ Syringe 16 mls @ 8 mls/min IV Fr@1400 [facility]; Protocol Stop: 07/02/22 13:59 Last Admin: 06/18/22 15:18 Dose: 8 mls/min Albumin Human (Albumin 25%) 12.5 gm in 50 mls @ 50 mls/hr IV ONCE ONE Last Infusion: 06/14/22 13:33 Dose: Infused Albumin Human (Albumin 25%) 12.5 gm in 50 mls @ 50 mls/hr IV ONCE ONE Last Infusion: 06/14/22 13:33 Dose: Infused Sodium Chloride (Nss 1000ml) 1,000 mls @ 0 mls/hr IV .Q0M PRN PRN Reason: For Hemodialysis Use ONLY Stop: 06/25/22 13:41 Insulin Aspart (Insulin Aspart Per Unit) 0 units SC [facility]; Protocol Stop: 07/16/22 11:29 Last Admin: 06/25/22 08:43 Dose: 12 units Insulin Glargine (Lantus Per Unit Charge) 14 units SQ [facility]; Protocol Stop: 07/17/22 20:59 Last Admin: 06/24/22 21:33 Dose: 14 units Latanoprost (Latanoprost 0.005% Op Soln 2.5 Ml Btl) 1 drops OPB [facility] Stop: 07/17/22 21:04 Last Admin: 06/24/22 21:03 Dose: 1 drops Levothyroxine Sodium (Levothyroxine Sodium 150 Mcg Tablet) [facility] Stop: 07/05/22 06:29 Last Admin: 06/25/22 05:59 Dose: 150 mcg Menthol (Cough Drop (Sugar Free) Norman 24 Norman/1 Box) 1 norman BUCCAL Q2H PRN PRN Reason: Sore Throat Stop: 07/10/22 17:08 Last Admin: 06/11/22 23:23 Dose: 1 norman Miscellaneous (Daptomycin Post-Hd - Pending Order) 1 each N/A SuTuThSa@1800 [facility] Stop: 07/01/22 17:59 Last Admin: 06/25/22 06:00 Dose: Not Given Nitroglycerin (Nitroglycerin Sl 0.4 Mg/Tab Tab) 0.4 mg SL PRN PRN PRN Reason: Chest Pain Stop: 07/15/22 18:44 Polyethylene Glycol (Polyethylene (Miralax) 17 Gm Pack) 17 gm PO DAILY PRN PRN Reason: Constipation Stop: 06/28/22 16:06 Last Admin: 06/17/22 21:29 Dose: 17 gm Ropinirole HCl (Ropinirole Hcl 0.25 Mg Tablet) 0.25 mg PO HS [facility] Stop: 07/15/22 20:59 Last Admin: 06/24/22 21:35 Dose: 0.25 mg Vitamin B Complex/Folic Acid (Nephrocaps) 1 cap PO BID ROSA M Stop: 07/09/22 12:14 Last Admin: 06/25/22 08:32 Dose: 1 cap Warfarin Sodium (Warfarin Sod 0.5 Mg Tab) 1.5 mg PO DAILY@1600 [facility] Stop: 07/11/22 15:59 Last Admin: 06/23/22 17:27 Dose: 1.5 mg
[2022-06-25 10:09] LABS: INR 3.6 (0.9-1.1); Prothrombin Time 36.2 Seconds (9.0-12.0)
[2022-06-25 10:11] LABS: BUN Creatinine Ratio 9.4 (10-20); Calcium 8.6 mg/dl (8.5-10.1); Est GFR (Non-African American) 20.7 ml/min; Magnesium 1.6 mg/dl (1.7-2.4); Potassium 3.7 mmol/L (3.5-5.1)
[2022-06-25] MEDS: HEPARIN SOD (PORCINE) 1000 UNIT/ML IV SCH ×2 (11:37→12:27)
[2022-06-25] MEDS: HYDROmorphone INJ 0.5 MG/0.5 ML SYR IV PRN ×2 (12:34→19:27)
[2022-06-25] MEDS: DAPTOmycin 800 MG in SYRINGE 0 ML IV SCH (15:33)
--- NOTE | 2022-06-25 19:19 | Dialysis Progress Note ---
Date of Service June 25, 2022 Assessment & Plan (1) End-stage renal disease (ESRD): Plan: for HD today w/ goal 3 L off > got 3 L w/ albumin and midodrine again today. believe we are on wrong part but improving starling curve for her heart contractility/forward output d/t fluid OL and will work best we can on whittling that down >eval for HD again tomorrow >her hypotension is best managed w/ more HD HD in my opinion > would reserve albumin, midodrine for optimizing BP for fluid removal; would assess pt for sx of low BP before treating; could also consider repeat w/u for sepsis Admission and Anticipated Discharge Date Admission Date: May 14, 2022 Subjective no interval events. wants to dangle her feet still seen on HD Review of Systems Review of Systems: All systems reviewed & are unremarkable except as noted in Subjective Physical Exam Constitutional: well developed and well nourished Eyes: EOM intact bilaterally ENMT: Ears: no external ear abnormality Nose: no external nose abnormality Mouth: + dry oral mucous membranes Neck: no nuchal rigidity Respiratory: normal respiratory effort Auscultation: + diminished lung sounds Cardiovascular: Rate/Rhythm: regular rate and regular rhythm Extremities: + edema (1+) Gastrointestinal (Abdomen): Inspection/Auscultation: normal bowel sounds Percussion/Palpation: abdomen soft; abdomen nontender Musculoskeletal: Extremities: strength 5/5 throughout Skin: no rashes, warm and dry Results & Data ([facility]) Vital Signs (Past 12 Hours) Vital Signs Temp Pulse Pulse Resp BP BP Pulse Ox 06/25/22 15:56 92 H 06/25/22 15:10 36.6 C 90 19 91/57 L 96 06/25/22 13:30 36.4 C L 86 101/54 L 06/25/22 12:30 89 96/54 L 06/25/22 13:00 88 100/51 L 06/25/22 12:00 85 85/44 L 06/25/22 11:30 85 116/47 L 06/25/22 11:00 86 92/45 L 06/25/22 10:30 92 H 90/48 L 06/25/22 10:00 93 H 86/50 L 06/25/22 09:45 94 H 99/48 L 06/25/22 09:38 36.7 C 96 H 06/25/22 08:00 36.6 C 90 18 94/65 L 100 06/25/22 08:00 90 O2 Del Method 06/25/22 15:56 06/25/22 15:10 06/25/22 13:30 06/25/22 12:30 06/25/22 13:00 06/25/22 12:00 06/25/22 11:30 06/25/22 11:00 06/25/22 10:30 06/25/22 10:00 06/25/22 09:45 06/25/22 09:38 06/25/22 08:00 Room Air 06/25/22 08:00 Laboratory Results reviewed
[2022-06-25] MEDS: GABAPENTIN 300 MG CAP PO SCH (20:10)
[2022-06-25] MEDS: LATANOPROST 0.005% OP SOLN 2.5 ML BTL OPB SCH (20:11)
[2022-06-25] MEDS: rOPINIRole HCL 0.25 MG TABLET PO SCH (20:11)
[2022-06-25] MEDS: LANTUS PER UNIT CHARGE SQ SCH (20:58)
[2022-06-26] MEDS: LEVOTHYROXINE SODIUM 150 MCG TABLET PO SCH (06:13)
[2022-06-26] MEDS: HYDROCODONE/ACETAMOPHEN 5/325MG TAB PO PRN (06:19)
--- NOTE | 2022-06-26 07:41 | Hospitalist Progress Note ---
Date of Service June 26, 2022 Assessment & Plan (1) Sacral osteomyelitis: Plan per previous hospitalist notes with addendum: Sacral Wound Osteomyelitis ( Biopsy confirmed on 06/10) Has undergone multiple debridement; last one in 06/10/2022. Had wound VAC placed but got dislodged. Currently on daily dressing. Sacral Wound Grew: Enterococcus VRE on 05/27/2022 Source likely stage IV sacral ulcer with likely underlying osteomyelitis Initially was on broad spectrum abx with intravenous cefepime, daptomycin and oral fluconazole S/P debridement of sacral ulcer with bone biopsy on 05/27/2022 and repeat debridement 06/10 Evaluated by surgery and ID- recommendations noted Plan: Discussed over the phone with infectious disease (Dr. Mclean) over the phone on 06/14. He suggested daptomycin for 3 more weeks. However, given the extent of her sacral wound; infection control is difficult. Recommend aggressive wound care. Discussed with family at bedside; they do not want her to go to [facility]. Would prefer her to go to [facility]. We will continue aggressive wound care daily while inpatient. . Appreciate surgery recommendation. 06/22 Tolerating daptomycin IV well (needs 2 more weeks of IV daptomycin per ID recommendations - end date 07/05) stable overall still having significant pain over the sacral wound area Pain management service consulted-tramadol changed to hydrocodone, continue gabapentin HS, continue IV Dilaudid as needed 06/24 - pain seems to be improved, but continues to feel some "burning" in sacral area 06/26 Pain improved and also BP improved. Current BP 101/[address] head: negative resolved Adjustment disorder with depressed mood Appreciate psychiatrist input and recommendation Vitamin B12, folate and TSH are normal stable Anemia: Chronic anemia in the setting of ESRD and GI losses (reported but not observed) and phlebotomy Was reportedly getting ?EPO injections with HD per Patient - continue EPO per renal No signs of active bleeding Positive FOBT S/P PRBCs during HD Monitor CBC: ~ Hgb 8 New onset atrial fibrillation: On amiodarone 200mg once daily. On Coumadin 1.5mg. Decrease to 1mg. INR above 5 HOLD coumadin monitor INR Ulcer of sacral region, stage 4: - plan as above. Radiation necrosis of skin and subcutaneous: - plan as above Acute hyponatremia: - likely due to sepsis and decrease po intake Sodium level stable Monitor End-stage renal disease (ESRD): Has been on HD for the past year, per patient Normal HD schedule MWF Continue hemodialysis as per Nephrology Diabetes: Continue insulin per protocol Hypothyroid: TSH 22, FT4 <0.25 unclear if patient taking medication appropriately TSH normalized with restarting levothyroxine Thrombocytopenia: unclear chronicity likely consumption in sepsis, ESRD, chronic illness no signs of bleeding resolved Coagulopathy: Monitor INR: 9.6>3.1>2.7>3.6->3.4->2.1->2 > 2.5> 2.1> 1.8 No obvious bleeding issues current INR 2.6 --> resume coumadin at lower dose 1mg, monitor INR Plan DVT px:coumadin Dispo- awaiting placement to SNF Code Status: DNI/DNR Admission and Anticipated Discharge Date Admission Date: May 14, 2022 Subjective Follow-up for sacral osteomyelitis, ESRD, etc. Pt is resting, laying in bed , in NAD Reports pain, in sacral wound area is better. Reports that her was visiting yesterday, and she was able to sit at the edge of her bed. Pain management - now on gabapentin, hydrocodone, stopped tramadol No fever, chills, shortness of breath, chest pain, dizziness, palpitations, nausea vomiting Review of Systems Review of Systems: All systems reviewed & are unremarkable except as noted in Subjective Physical Exam Physical Exam: General- awake and alert, not in distress, on HD, speaks in full sentences with no effort or accessory muscle use Eyes- EOMI, anicteric Neck- no JVD Lungs- anteriorly clear BS bilaterally, no rales/wheezes Heart- normal rate, regular rhythm; no murmurs Abdomen- normal bowel sounds, nondistended, soft, nontender Back - significant sacral wound - reviewed photo by wound care in EMR Extremities- + bilateral lower extremity edema (improved), no calf tenderness, Neuro- alert, oriented x 3; no gross focal neurologic deficits Skin- warm & dry Results & Data Results & Data ([facility]) Vital Signs (Past 12 Hours) Vital Signs Temp Pulse Pulse Resp BP Pulse Ox O2 Del Method 06/26/22 07:19 37 C 92 H 83/54 L 100 Nasal Cannula 06/26/22 03:00 36.8 C 88 18 95/60 L 100 Room Air 06/26/22 00:00 87 06/25/22 20:00 Nasal Cannula 06/25/22 23:00 36.8 C 93 H 18 96/61 L 96 Room Air O2 Flow Rate 06/26/22 07:19 2 06/26/22 03:00 06/26/22 00:00 06/25/22 20:00 2 06/25/22 23:00 Laboratory Results 06/26/22 06/25/22 06/25/22 Range/Units 07:13 20:21 16:13 PT (9.0-12.0) Seconds INR (0.9-1.1) Sodium (136-145) mmol/L Potassium (3.5-5.1) mmol/L Chloride (98-107) mmol/L Carbon Dioxide (21-32) mmol/L Anion Gap (3-11) BUN (6-23) mg/dl Creatinine (0.6-1.2) mg/dl Est Cr Clr Drug Dosing ml/min Est GFR ( Amer) ml/min Est GFR (Non-Af Amer) ml/min BUN/Creatinine Ratio (10-20) Glucose (70-99(Fasting)) mg/dl POC Glucose 150 H 203 H 154 H (70-99) mg/dl Calcium (8.5-10.1) mg/dl Phosphorus (2.5-4.9) mg/dl Magnesium (1.7-2.4) mg/dl 06/25/22 06/25/22 Range/Units 09:38 09:38 PT 36.2 H (9.0-12.0) Seconds INR 3.6 H (0.9-1.1) Sodium 136 (136-145) mmol/L Potassium 3.7 (3.5-5.1) mmol/L Chloride 102 (98-107) mmol/L Carbon Dioxide 28 (21-32) mmol/L Anion Gap 6 (3-11) BUN 22 (6-23) mg/dl Creatinine 2.34 H (0.6-1.2) mg/dl Est Cr Clr Drug Dosing 23.0 ml/min Est GFR ( Amer) 24.0 ml/min Est GFR (Non-Af Amer) 20.7 ml/min BUN/Creatinine Ratio 9.4 L (10-20) Glucose 203 H (70-99(Fasting)) mg/dl POC Glucose (70-99) mg/dl Calcium 8.6 (8.5-10.1) mg/dl Phosphorus 2.0 L (2.5-4.9) mg/dl Magnesium 1.6 L (1.7-2.4) mg/dl Medications Administered Current Inpatient Medications Acetaminophen (Acetaminophen 325 Mg Tab) 650 mg PO Q8H PRN PRN Reason: Mild pain Stop: 07/11/22 11:59 Last Admin: 06/23/22 20:56 Dose: 650 mg Hydrocodone Bitart/Acetaminophen (Hydrocodone/Acetamophen 5/325mg Tab) 1 tab PO Q6H PRN PRN Reason: Pain Stop: 07/06/22 08:25 Last Admin: 06/26/22 06:19 Dose: 1 tab Amiodarone HCl (Amiodarone 200 Mg Tab) 200 mg PO DAILY ROSA M Stop: 07/05/22 23:59 Last Admin: 06/25/22 08:31 Dose: 200 mg Brimonidine Tartrate (Brimonidine Tartrate 0.2% 5ml) 1 drops OP BID ROSA M Stop: 06/28/22 08:59 Last Admin: 06/25/22 20:10 Dose: 1 drops Collagenase (Collagenase Oint 30 Gm Tube) 1 appln EXT DAILY ROSA M Stop: 07/15/22 12:44 Last Admin: 06/25/22 08:46 Dose: 1 appln Diphenhydramine HCl (Diphenhydramine Capsule 25 Mg Cap) 25 mg PO BID PRN PRN Reason: Allergy Symptoms Stop: 07/09/22 20:12 Last Admin: 06/19/22 19:18 Dose: 25 mg Fluticasone Propionate (Fluticasone Propionate Na Spr 16 Gm Btl) 2 sprays NA DAILY ROSA M Stop: 07/12/22 22:24 Last Admin: 06/25/22 08:46 Dose: 2 sprays Gabapentin (Gabapentin 300 Mg Cap) 300 mg PO HS [facility]A M Stop: 07/22/22 20:59 Last Admin: 06/25/22 20:10 Dose: 300 mg Hydromorphone HCl (Hydromorphone Inj 0.5 Mg/0.5 Ml Syr) 0.25 mg IV Q6H PRN PRN Reason: Pain Stop: 07/05/22 12:52 Last Admin: 06/25/22 19:27 Dose: 0.25 mg Daptomycin 550 mg/ Syringe 11 mls @ 5.5 mls/min IV MoWe@1400 [facility]; Protocol Stop: 07/05/22 13:59 Last Admin: 06/23/22 13:50 Dose: 5.5 mls/min Daptomycin 800 mg/ Syringe 16 mls @ 8 mls/min IV Fr@1400 [facility]; Protocol Stop: 07/02/22 13:59 Last Admin: 06/25/22 15:33 Dose: 8 mls/min Albumin Human (Albumin 25%) 12.5 gm in 50 mls @ 50 mls/hr IV ONCE ONE Last Infusion: 06/14/22 13:33 Dose: Infused Albumin Human (Albumin 25%) 12.5 gm in 50 mls @ 50 mls/hr IV ONCE ONE Last Infusion: 06/14/22 13:33 Dose: Infused Insulin Aspart (Insulin Aspart Per Unit) 0 units SC [facility]; Protocol Stop: 07/16/22 11:29 Last Admin: 06/25/22 20:57 Dose: 5 units Insulin Glargine (Lantus Per Unit Charge) 14 units SQ [facility]; Protocol Stop: 07/17/22 20:59 Last Admin: 06/25/22 20:58 Dose: 14 units Latanoprost (Latanoprost 0.005% Op Soln 2.5 Ml Btl) 1 drops OPB [facility] Stop: 07/17/22 21:04 Last Admin: 06/25/22 20:11 Dose: 1 drops Levothyroxine Sodium ([facility]othyroxine Sodium 150 Mcg Tablet) [facility] Stop: 07/05/22 06:29 Last Admin: 06/26/22 06:13 Dose: 150 mcg Menthol (Cough Drop (Sugar Free) Norman 24 Norman/1 Box) 1 norman BUCCAL Q2H PRN PRN Reason: Sore Throat Stop: 07/10/22 17:08 Last Admin: 06/11/22 23:23 Dose: 1 norman Miscellaneous (Daptomycin Post-Hd - Pending Order) 1 each N/A SuTuThSa@1800 [facility] Stop: 07/01/22 17:59 Last Admin: 06/25/22 06:00 Dose: Not Given Nitroglycerin (Nitroglycerin Sl 0.4 Mg/Tab Tab) 0.4 mg SL PRN PRN PRN Reason: Chest Pain Stop: 07/15/22 18:44 Polyethylene Glycol (Polyethylene (Miralax) 17 Gm Pack) 17 gm PO DAILY PRN PRN Reason: Constipation Stop: 06/28/22 16:06 Last Admin: 06/17/22 21:29 Dose: 17 gm Ropinirole HCl (Ropinirole Hcl 0.25 Mg Tablet) 0.25 mg PO HS [facility] Stop: 07/15/22 20:59 Last Admin: 06/25/22 20:11 Dose: 0.25 mg Vitamin B Complex/Folic Acid (Nephrocaps) 1 cap PO BID ROSA M Stop: 07/09/22 12:14 Last Admin: 06/25/22 20:11 Dose: 1 cap Warfarin Sodium (Warfarin Sod 1 Mg Tab) 1 mg PO DAILY@1600 [facility] Stop: 07/26/22 15:59
[2022-06-26] MEDS: INSULIN ASPART PER UNIT SC SCH ×4 (08:04→20:30)
[2022-06-26] MEDS: AMIODARONE 200 MG TAB PO SCH (08:20)
[2022-06-26] MEDS: BRIMONIDINE TARTRATE 0.2% 5ML OP SCH ×2 (08:20→20:29)
[2022-06-26] MEDS: COLLAGENASE OINT 30 GM TUBE EXT SCH (08:22)
[2022-06-26] MEDS: NEPHROCAPS PO SCH ×2 (08:22→20:30)
[2022-06-26 08:35] LABS: BUN Creatinine Ratio 8.8 (10-20); Calcium 8.8 mg/dl (8.5-10.1); Creatinine Clr Calc Pharmacy 26.9 ml/min; Est GFR (African American) 30.3 ml/min; Est GFR (Non-African American) 26.1 ml/min; Potassium 3.7 mmol/L (3.5-5.1)
[2022-06-26 08:43] LABS: INR 2.6 (0.9-1.1); Prothrombin Time 25.9 Seconds (9.0-12.0)
--- NOTE | 2022-06-26 10:57 | Nephrology Progress Note ---
Date of Service June 26, 2022 Assessment & Plan (1) End-stage renal disease (ESRD): Plan: Had HD on 06/25 w/ goal 3 L off > got 3 L w/ albumin and midodrine believe we are on wrong part but improving starling curve for her heart contractility/forward output d/t fluid OL and will work best we can on whittling that down >Next Hd will be on Tuesday >her hypotension is best managed w/ more HD HD in my opinion > would reserve albumin, midodrine for optimizing BP for fluid removal; would assess pt for sx of low BP before treating; could also consider repeat w/u for sepsis Admission and Anticipated Discharge Date Admission Date: May 14, 2022 Subjective Follow-up for sacral osteomyelitis, ESRD, etc. Resting comfortably, Pedal edema better No fever, chills, shortness of breath, chest pain, dizziness, palpitations, nausea vomiting Review of Systems Review of Systems: All systems reviewed & are unremarkable except as noted in HPI & below Physical Exam Physical Exam: General Appearance: Comfortable, No apparent distress Head: normocephalic, Atraumatic Eyes: normal inspection, EOMI Neck: supple, Trachea midline Respiratory/Chest: Decreased breath sounds, CTA, No accessory muscle use Cardiovascular: S1, S2, No murmur Abdomen/GI:Soft, abd distended, Non tender, Bowel sounds present Extremities/Musculoskeletal:normal inspection, +3 B/L LE edema Neurologic/Psych:AAOX3, grossly no focal neurological deficits Skin: normal color, warm Results & Data ([facility]) Vital Signs (Past 12 Hours) Vital Signs Temp Pulse Pulse Resp BP Pulse Ox O2 Del Method 06/26/22 07:19 37 C 92 H 83/54 L 100 Nasal Cannula 06/26/22 03:00 36.8 C 88 18 95/60 L 100 Room Air 06/26/22 00:00 87 06/25/22 23:00 36.8 C 93 H 18 96/61 L 96 Room Air O2 Flow Rate 06/26/22 07:19 2 06/26/22 03:00 06/26/22 00:00 06/25/22 23:00 Laboratory Results 06/24/22 08:30 06/26/22 07:36
[2022-06-26] MEDS: diphenhydrAMINE Capsule 25 MG CAP PO PRN (13:13)
[2022-06-26] MEDS: WARFARIN SOD 1 MG TAB PO SCH (19:07)
[2022-06-26] MEDS: LANTUS PER UNIT CHARGE SQ SCH (20:28)
[2022-06-26] MEDS: LATANOPROST 0.005% OP SOLN 2.5 ML BTL OPB SCH (20:29)
[2022-06-26] MEDS: GABAPENTIN 300 MG CAP PO SCH (20:29)
[2022-06-26] MEDS: rOPINIRole HCL 0.25 MG TABLET PO SCH (20:30)
[2022-06-27] MEDS: HYDROCODONE/ACETAMOPHEN 5/325MG TAB PO PRN ×2 (02:45→07:58)
[2022-06-27 05:22] LABS: HBSAG NON-REACTIVE (NON-REACTIVE); Hepatitis B Core Antibody Total NON-REACTIVE (NON-REACTIVE)
[2022-06-27] MEDS: LEVOTHYROXINE SODIUM 150 MCG TABLET PO SCH (06:23)
[2022-06-27 07:52] LABS: INR 2.5 (0.9-1.1)
[2022-06-27] MEDS: AMIODARONE 200 MG TAB PO SCH (08:00)
[2022-06-27] MEDS: COLLAGENASE OINT 30 GM TUBE EXT SCH (08:01)
[2022-06-27] MEDS: BRIMONIDINE TARTRATE 0.2% 5ML OP SCH ×2 (08:01→20:25)
[2022-06-27] MEDS: NEPHROCAPS PO SCH ×2 (08:04→20:25)
[2022-06-27] MEDS: FLUTICASONE PROPIONATE NA SPR 16 GM BTL SCH (08:04)
[2022-06-27] MEDS: INSULIN ASPART PER UNIT SC SCH ×4 (08:33→20:26)
[2022-06-27] MEDS: HYDROmorphone INJ 0.5 MG/0.5 ML SYR IV PRN (09:55)
[2022-06-27] MEDS: diphenhydrAMINE Capsule 25 MG CAP PO PRN (15:14)
--- NOTE | 2022-06-27 15:54 | Hospitalist Progress Note ---
Date of Service June 27, 2022 Assessment & Plan (1) Sacral osteomyelitis: Plan per previous hospitalist notes with addendum: Sacral Wound Osteomyelitis ( Biopsy confirmed on 06/10) Has undergone multiple debridement; last one in 06/10/2022. Had wound VAC placed but got dislodged. Currently on daily dressing. Sacral Wound Grew: Enterococcus VRE on 05/27/2022 Source likely stage IV sacral ulcer with likely underlying osteomyelitis Initially was on broad spectrum abx with intravenous cefepime, daptomycin and oral fluconazole S/P debridement of sacral ulcer with bone biopsy on 05/27/2022 and repeat debridement 06/10 Evaluated by surgery and ID- recommendations noted Plan: Discussed over the phone with infectious disease (Dr. Mclean) over the phone on 06/14. He suggested daptomycin for 3 more weeks. However, given the extent of her sacral wound; infection control is difficult. Recommend aggressive wound care. Discussed with family at bedside; they do not want her to go to [facility]. Would prefer her to go to [facility]. We will continue aggressive wound care daily while inpatient. . Appreciate surgery recommendation. 06/22 Tolerating daptomycin IV well (needs 2 more weeks of IV daptomycin per ID recommendations - end date 07/05) stable overall still having significant pain over the sacral wound area Pain management service consulted-tramadol changed to hydrocodone, continue gabapentin HS, continue IV Dilaudid as needed 06/24 - pain seems to be improved, but continues to feel some "burning" in sacral area 06/26 Pain improved and also BP improved. Current BP 101/55 06/27 Will consult Plastic surgery on Tuesday (after holiday weekend) Headache CT head: negative resolved Adjustment disorder with depressed mood Appreciate psychiatrist input and recommendation Vitamin B12, folate and TSH are normal stable Anemia: Chronic anemia in the setting of ESRD and GI losses (reported but not observed) and phlebotomy Was reportedly getting ?EPO injections with HD per Patient - continue EPO per renal No signs of active bleeding Positive FOBT S/P PRBCs during HD Monitor CBC: ~ Hgb 8 New onset atrial fibrillation: On amiodarone 200mg once daily. On Coumadin 1.5mg. Decreased to 1mg. INR 2.5 monitor INR Ulcer of sacral region, stage 4: - plan as above. Radiation necrosis of skin and subcutaneous: - plan as above Acute hyponatremia: - likely due to sepsis and decrease po intake Sodium level stable Monitor End-stage renal disease (ESRD): Has been on HD for the past year, per patient Normal HD schedule MWF Continue hemodialysis as per Nephrology Diabetes: Continue insulin per protocol Hypothyroid: TSH 22, FT4 <0.25 unclear if patient taking medication appropriately TSH normalized with restarting levothyroxine Thrombocytopenia: unclear chronicity likely consumption in sepsis, ESRD, chronic illness no signs of bleeding resolved Coagulopathy: Monitor INR: 9.6>3.1>2.7>3.6->3.4->2.1->2 > 2.5> 2.1> 1.8 No obvious bleeding issues current INR 2.5 - cont. coumadin at lower dose 1mg, monitor INR Plan DVT px:coumadin Dispo- awaiting placement to SNF Code Status: DNI/DNR Admission and Anticipated Discharge Date Admission Date: May 14, 2022 Subjective Follow-up for sacral osteomyelitis, ESRD, etc. Pt is resting, laying in bed , in NAD Reports pain, in sacral wound area on and off, currently not bothering her. Reports that her was visiting the other day, and she was able to sit at the edge of her bed. Pain management - now on gabapentin, hydrocodone, stopped tramadol No fever, chills, shortness of breath, chest pain, dizziness, palpitations, nausea vomiting No HD today Review of Systems Review of Systems: All systems reviewed & are unremarkable except as noted in Subjective Physical Exam Physical Exam: General- awake and alert, not in distress, on HD, speaks in full sentences with no effort or accessory muscle use Eyes- EOMI, anicteric Neck- no JVD Lungs- anteriorly clear BS bilaterally, no rales/wheezes Heart- normal rate, regular rhythm; no murmurs Abdomen- normal bowel sounds, nondistended, soft, nontender Back - significant sacral wound - reviewed photo by wound care in EMR Extremities- + bilateral lower extremity edema (improved), no calf tenderness, Neuro- alert, oriented x 3; no gross focal neurologic deficits Skin- warm & dry Results & Data Results & Data ([facility]) Vital Signs (Past 12 Hours) Vital Signs Temp Pulse Resp BP Pulse Ox O2 Del Method 06/27/22 08:00 Room Air 06/27/22 10:52 36.8 C 97 H 18 91/58 L 95 Room Air 06/27/22 06:49 37.0 C 91 H 19 95/61 L 94 Room Air Laboratory Results 06/27/22 06/27/22 06/27/22 Range/Units 11:41 08:03 07:07 PT 25.0 H (9.0-12.0) Seconds INR 2.5 H (0.9-1.1) POC Glucose 107 H 116 H (70-99) mg/dl Hep Bs Antigen (NON-REACTIVE) Hep Bs Ag Confirmation Hep B Core Total Ab (NON-REACTIVE) Hep B Core IgM Ab 06/26/22 06/26/22 06/26/22 Range/Units 19:51 17:06 07:36 PT (9.0-12.0) Seconds INR (0.9-1.1) POC Glucose 114 H 109 H (70-99) mg/dl Hep Bs Antigen NON-REACTIVE (NON-REACTIVE) Hep Bs Ag Confirmation TNP Hep B Core Total Ab NON-REACTIVE (NON-REACTIVE) Hep B Core IgM Ab Cancelled Medications Administered Current Inpatient Medications Acetaminophen (Acetaminophen 325 Mg Tab) 650 mg PO Q8H PRN PRN Reason: Mild pain Stop: 07/11/22 11:59 Last Admin: 06/23/22 20:56 Dose: 650 mg Hydrocodone Bitart/Acetaminophen (Hydrocodone/Acetamophen 5/325mg Tab) 1 tab PO Q6H PRN PRN Reason: Pain Stop: 07/06/22 08:25 Last Admin: 06/27/22 07:58 Dose: 1 tab Amiodarone HCl (Amiodarone 200 Mg Tab) 200 mg PO DAILY ROSA M Stop: 07/05/22 23:59 Last Admin: 06/27/22 08:00 Dose: 200 mg Brimonidine Tartrate (Brimonidine Tartrate 0.2% 5ml) 1 drops OP BID [facility] M Stop: 06/28/22 08:59 Last Admin: 06/27/22 08:01 Dose: 1 drops Collagenase (Collagenase Oint 30 Gm Tube) 1 appln EXT DAILY [facility] M Stop: 07/15/22 12:44 Last Admin: 06/27/22 08:01 Dose: 1 appln Diphenhydramine HCl (Diphenhydramine Capsule 25 Mg Cap) 25 mg PO BID PRN PRN Reason: Allergy Symptoms Stop: 07/09/22 20:12 Last Admin: 06/27/22 15:14 Dose: 25 mg Fluticasone Propionate (Fluticasone Propionate Na Spr 16 Gm Btl) 2 sprays NA DAILY [facility] M Stop: 07/12/22 22:24 Last Admin: 06/27/22 08:04 Dose: 2 sprays Gabapentin (Gabapentin 300 Mg Cap) 300 mg PO HS [facility] M Stop: 07/22/22 20:59 Last Admin: 06/26/22 20:29 Dose: 300 mg Hydromorphone HCl (Hydromorphone Inj 0.5 Mg/0.5 Ml Syr) 0.25 mg IV Q6H PRN PRN Reason: Pain Stop: 07/05/22 12:52 Last Admin: 06/27/22 09:55 Dose: 0.25 mg Daptomycin 550 mg/ Syringe 11 mls @ 5.5 mls/min IV MoWe@1400 [facility]; Protocol Stop: 07/05/22 13:59 Last Admin: 06/23/22 13:50 Dose: 5.5 mls/min Daptomycin 800 mg/ Syringe 16 mls @ 8 mls/min IV Fr@1400 [facility]; Protocol Stop: 07/02/22 13:59 Last Admin: 06/25/22 15:33 Dose: 8 mls/min Albumin Human (Albumin 25%) 12.5 gm in 50 mls @ 50 mls/hr IV ONCE ONE Last Infusion: 06/14/22 13:33 Dose: Infused Albumin Human (Albumin 25%) 12.5 gm in 50 mls @ 50 mls/hr IV ONCE ONE Last Infusion: 06/14/22 13:33 Dose: Infused Insulin Aspart (Insulin Aspart Per Unit) 0 units SC [facility]; Protocol Stop: 07/16/22 11:29 Last Admin: 06/27/22 12:15 Dose: 7 units Insulin Glargine (Lantus Per Unit Charge) 14 units SQ [facility]; Protocol Stop: 07/17/22 20:59 Last Admin: 06/26/22 20:28 Dose: 14 units Latanoprost (Latanoprost 0.005% Op Soln 2.5 Ml Btl) 1 drops OPB HS [facility] Stop: 07/17/22 21:04 Last Admin: 06/26/22 20:29 Dose: 1 drops Levothyroxine Sodium (Levothyroxine Sodium 150 Mcg Tablet) 150 mcg PO DAILYBB [facility] Stop: 07/05/22 06:29 Last Admin: 06/27/22 06:23 Dose: 150 mcg Menthol (Cough Drop (Sugar Free) Norman 24 Norman/1 Box) 1 norman BUCCAL Q2H PRN PRN Reason: Sore Throat Stop: 07/10/22 17:08 Last Admin: 06/11/22 23:23 Dose: 1 norman Miscellaneous (Daptomycin Post-Hd - Pending Order) 1 each N/A Franchesca@1800 [facility] Stop: 07/01/22 17:59 Last Admin: 06/25/22 06:00 Dose: Not Given Nitroglycerin (Nitroglycerin Sl 0.4 Mg/Tab Tab) 0.4 mg SL PRN PRN PRN Reason: Chest Pain Stop: 07/15/22 18:44 Polyethylene Glycol (Polyethylene (Miralax) 17 Gm Pack) 17 gm PO DAILY PRN PRN Reason: Constipation Stop: 06/28/22 16:06 Last Admin: 06/17/22 21:29 Dose: 17 gm Ropinirole HCl (Ropinirole Hcl 0.25 Mg Tablet) 0.25 mg PO HS [facility] Stop: 07/15/22 20:59 Last Admin: 06/26/22 20:30 Dose: 0.25 mg Vitamin B Complex/Folic Acid (Nephrocaps) 1 cap PO BID [facility] Stop: 07/09/22 12:14 Last Admin: 06/27/22 08:04 Dose: 1 cap Warfarin Sodium (Warfarin Sod 1 Mg Tab) 1 mg PO DAILY@1600 [facility] Stop: 07/26/22 15:59 Last Admin: 06/26/22 19:07 Dose: 1 mg
[2022-06-27] MEDS: WARFARIN SOD 1 MG TAB PO SCH (16:41)
[2022-06-27] MEDS: rOPINIRole HCL 0.25 MG TABLET PO SCH (20:24)
[2022-06-27] MEDS: ACETAMINOPHEN 325 MG TAB PO PRN (20:24)
[2022-06-27] MEDS: GABAPENTIN 300 MG CAP PO SCH (20:25)
[2022-06-27] MEDS: LATANOPROST 0.005% OP SOLN 2.5 ML BTL OPB SCH (20:25)
[2022-06-27] MEDS: LANTUS PER UNIT CHARGE SQ SCH (20:26)
[2022-06-28] MEDS: LEVOTHYROXINE SODIUM 150 MCG TABLET PO SCH (05:51)
[2022-06-28] MEDS: HYDROmorphone INJ 0.5 MG/0.5 ML SYR IV PRN ×2 (06:17→19:23)
[2022-06-28] MEDS: INSULIN ASPART PER UNIT SC SCH ×4 (07:52→20:40)
[2022-06-28 07:57] LABS: INR 2.6 (0.9-1.1); Prothrombin Time 26.6 Seconds (9.0-12.0)
[2022-06-28] MEDS ORDERED: LORATADINE 10 MG TAB PO ONE (07:58)
--- NOTE | 2022-06-28 08:00 | Hospitalist Progress Note ---
Date of Service June 28, 2022 Assessment & Plan (1) Sacral osteomyelitis: Plan Sacral Wound Osteomyelitis ( Biopsy confirmed on 06/10) Has undergone multiple debridement; last one in 06/10/2022. Had wound VAC placed but got dislodged. Currently on daily dressing. Sacral Wound Grew: Enterococcus VRE on 05/27/2022 Source likely stage IV sacral ulcer with likely underlying osteomyelitis Initially was on broad spectrum abx with intravenous cefepime, daptomycin and o ral fluconazole S/P debridement of sacral ulcer with bone biopsy on 05/27/2022 and repeat debridement 06/10 Evaluated by surgery and ID- recommendations noted Plan: Dr. Rasmussen - previous hospitalist discussed over the phone with infectious disease (Dr. cMlean) over the phone on 06/14. He suggested daptomycin for 3 more weeks. However, given the extent of her sacral wound; infection control is difficult. Recommend aggressive wound care. Discussed with family at bedside; they do not want her to go to [facility]. Would prefer her to go to [facility]. We will continue aggressive wound care daily while inpatient. . Appreciate surgery recommendation. Pain management service consulted-tramadol changed to hydrocodone, continue gabapentin HS, continue IV Dilaudid as needed 06/24 - pain seems to be improved, but continues to feel some "burning" in sacral area 06/26 Pain improved and also BP improved. Current BP 101/55 06/27 - patient seen by plastic surgery today, culture obtained from the wound, pending. Prealbumin ordered Wound unfortunately not improving Please see surgeon's note for further detail Headache CT head: negative resolved Adjustment disorder with depressed mood Appreciate psychiatrist input and recommendation Vitamin B12, folate and TSH are normal stable Anemia: Chronic anemia in the setting of ESRD and GI losses (reported but not observed) and phlebotomy Was reportedly getting ?EPO injections with HD per Patient - continue EPO per renal No signs of active bleeding Positive FOBT S/P PRBCs during HD Monitor CBC: ~ Hgb 8 New onset atrial fibrillation: On amiodarone 200mg once daily. On Coumadin 1.5mg. Decreased to 1mg. INR 2.6 monitor INR Ulcer of sacral region, stage 4: - plan as above. Radiation necrosis of skin and subcutaneous: - plan as above Acute hyponatremia: - likely due to sepsis and decrease po intake Sodium level stable Monitor End-stage renal disease (ESRD): Has been on HD for the past year, per patient Normal HD schedule MWF Continue hemodialysis as per Nephrology Diabetes: Continue insulin per protocol Hypothyroid: TSH 22, FT4 <0.25 unclear if patient taking medication appropriately TSH normalized with restarting levothyroxine Thrombocytopenia: unclear chronicity likely consumption in sepsis, ESRD, chronic illness no signs of bleeding resolved Coagulopathy: Monitor INR: 9.6>3.1>2.7>3.6->3.4->2.1->2 > 2.5> 2.1> 1.8 No obvious bleeding issues current INR 2.6 - cont. coumadin at lower dose 1mg, monitor INR Plan DVT px:coumadin Dispo- awaiting placement to SNF Code Status: DNI/DNR Admission and Anticipated Discharge Date Admission Date: May 14, 2022 Subjective Follow-up for sacral osteomyelitis, ESRD, etc. Pt is resting, laying in bed , in NAD Patient seen with plastic surgeon, and nurse at the bedside today -culture was obtained from the wound, please see surgeon's note for more detail Reports pain, in sacral wound area on and off, but painful when examined by the surgeon. Reports that her was visiting the other day, and she was able to sit at the edge of her bed -she was advised not to do that, and to offload her wound. Seen by pain management earlier- now on gabapentin, hydrocodone, stopped tramadol No fever, chills, shortness of breath, chest pain, dizziness, palpitations, nausea vomiting No HD today Review of Systems Review of Systems: All systems reviewed & are unremarkable except as noted in Subjective Physical Exam Physical Exam: General- awake and alert, not in distress, on HD, speaks in full sentences with no effort or accessory muscle use Eyes- EOMI, anicteric Neck- no JVD Lungs- anteriorly clear BS bilaterally, no rales/wheezes Heart- normal rate, regular rhythm; no murmurs Abdomen- normal bowel sounds, nondistended, soft, nontender Back - significant sacral wound - reviewed w/ surgery at the bedside - pls. see their note for detail Extremities- + bilateral lower extremity edema (improved), no calf tenderness, Neuro- alert, oriented x 3; no gross focal neurologic deficits Skin- warm & dry Results & Data Results & Data ([facility]) Vital Signs (Past 12 Hours) Vital Signs Temp Pulse Pulse Resp BP Pulse Ox O2 Del Method 06/28/22 07:04 36.4 C L 80 17 101/62 100 Nasal Cannula 06/28/22 06:04 36.6 C 88 16 95/61 L 96 Nasal Cannula 06/28/22 02:54 37 C 95 H 18 91/56 L 98 Nasal Cannula 06/28/22 00:00 87 06/27/22 22:00 Nasal Cannula 06/27/22 23:41 94 H 93/60 L 06/27/22 22:05 37.7 C H 96 H 17 82/51 L 92 Nasal Cannula 06/27/22 20:51 101/64 O2 Flow Rate 06/28/22 07:04 2 06/28/22 06:04 2 06/28/22 02:54 2 06/28/22 00:00 06/27/22 22:00 2 06/27/22 23:41 06/27/22 22:05 2 06/27/22 20:51 Laboratory Results 06/28/22 06/28/22 06/28/22 Range/Units 07:25 07:20 07:20 PT 26.6 H (9.0-12.0) Seconds INR 2.6 H (0.9-1.1) Sodium 134 L (136-145) mmol/L Potassium 4.5 D (3.5-5.1) mmol/L Chloride 102 (98-107) mmol/L Carbon Dioxide 27 (21-32) mmol/L Anion Gap 5 (3-11) BUN 39 H D (6-23) mg/dl Creatinine 3.49 H D (0.6-1.2) mg/dl Est Cr Clr Drug Dosing 14.9 ml/min Est GFR ( Amer) 14.8 ml/min Est GFR (Non-Af Amer) 12.8 ml/min BUN/Creatinine Ratio 11.2 (10-20) Glucose 123 H (70-99(Fasting)) mg/dl POC Glucose 128 H (70-99) mg/dl Calcium 8.8 (8.5-10.1) mg/dl 06/27/22 06/27/22 06/27/22 Range/Units 19:30 16:40 11:41 PT (9.0-12.0) Seconds INR (0.9-1.1) Sodium (136-145) mmol/L Potassium (3.5-5.1) mmol/L Chloride (98-107) mmol/L Carbon Dioxide (21-32) mmol/L Anion Gap (3-11) BUN (6-23) mg/dl Creatinine (0.6-1.2) mg/dl Est Cr Clr Drug Dosing ml/min Est GFR ( Amer) ml/min Est GFR (Non-Af Amer) ml/min BUN/Creatinine Ratio (10-20) Glucose (70-99(Fasting)) mg/dl POC Glucose 206 H 117 H 107 H (70-99) mg/dl Calcium (8.5-10.1) mg/dl Medications Administered Current Inpatient Medications Acetaminophen (Acetaminophen 325 Mg Tab) 650 mg PO Q8H PRN PRN Reason: Mild pain Stop: 07/11/22 11:59 Last Admin: 06/27/22 20:24 Dose: 650 mg Hydrocodone Bitart/Acetaminophen (Hydrocodone/Acetamophen 5/325mg Tab) 1 tab PO Q6H PRN PRN Reason: Pain Stop: 07/06/22 08:25 Last Admin: 06/28/22 08:47 Dose: 1 tab Amiodarone HCl (Amiodarone 200 Mg Tab) 200 mg PO DAILY ROSA M Stop: 07/05/22 23:59 Last Admin: 06/28/22 08:13 Dose: 200 mg Collagenase (Collagenase Oint 30 Gm Tube) 1 appln EXT DAILY ROSA M Stop: 07/15/22 12:44 Last Admin: 06/28/22 08:14 Dose: 1 appln Sterile Water 985 ml/Miscellaneous 15 ml/ Sodium Bicarbonate 1 dose/ [employer] 1 each 0 ml EXT UD [facility] Stop: 07/28/22 09:29 Diphenhydramine HCl (Diphenhydramine Capsule 25 Mg Cap) 25 mg PO BID PRN PRN Reason: Allergy Symptoms Stop: 07/09/22 20:12 Last Admin: 06/27/22 15:14 Dose: 25 mg Epoetin Felipe (Epoetin Felipe 20,000 Units/Ml Vial) 20,000 units IV TODAY@0900 ROSA M Stop: 06/28/22 14:00 Fluticasone Propionate (Fluticasone Propionate Na Spr 16 Gm Btl) 2 sprays NA DA RAFA ROSA M Stop: 07/12/22 22:24 Last Admin: 06/28/22 08:13 Dose: 2 sprays Gabapentin (Gabapentin 300 Mg Cap) 300 mg PO HS ROSA M Stop: 07/22/22 20:59 Last Admin: 06/27/22 20:25 Dose: 300 mg Heparin Sodium (Porcine) (Heparin Sod (Porcine) 1000 Unit/Ml) 1,000 units IV TODAY@0900 ROSA M Stop: 06/28/22 20:00 Heparin Sodium (Porcine) (Heparin Sod (Porcine) 1000 Unit/Ml) 400 units IV Q1H [facility] Stop: 06/28/22 11:01 Hydromorphone HCl (Hydromorphone Inj 0.5 Mg/0.5 Ml Syr) 0.25 mg IV Q6H PRN PRN Reason: Pain Stop: 07/05/22 12:52 Last Admin: 06/28/22 06:17 Dose: 0.25 mg Daptomycin 550 mg/ Syringe 11 mls @ 5.5 mls/min IV MoWe@1400 ROSA M; Protocol Stop: 07/05/22 13:59 Last Admin: 06/23/22 13:50 Dose: 5.5 mls/min Daptomycin 800 mg/ Syringe 16 mls @ 8 mls/min IV Fr@1400 ROSA M; Protocol Stop: 07/02/22 13:59 Last Admin: 06/25/22 15:33 Dose: 8 mls/min Albumin Human (Albumin 25%) 12.5 gm in 50 mls @ 50 mls/hr IV ONCE ONE Last Infusion: 06/14/22 13:33 Dose: Infused Sodium Chloride (Nss 1000ml) 1,000 mls @ 0 mls/hr IV .Q0M PRN PRN Reason: For Hemodialysis Use ONLY Stop: 06/28/22 14:37 Iron Sucrose 100 mg/ Syringe 10 mls @ 1 mls/min IV TODAY@0900 [facility] Stop: 06/28/22 14:00 Albumin Human (Albumin 25%) 12.5 gm in 50 mls @ 50 mls/hr IV TODAY@0900 [facility] Stop: 06/28/22 12:00 Last Admin: 06/28/22 10:04 Dose: 50 mls/hr Albumin Human (Albumin 25%) 12.5 gm in 50 mls @ 50 mls/hr IV TODAY@1200 ROSA M Stop: 06/28/22 16:00 Sodium Chloride (Nss 1000ml) 1,000 mls @ 0 mls/hr IV .Q0M PRN PRN Reason: For Hemodialysis Use ONLY Stop: 06/28/22 14:55 Insulin Aspart (Insulin Aspart Per Unit) 0 units SC ACHS [facility]; Protocol Stop: 07/16/22 11:29 Last Admin: 06/28/22 07:52 Dose: 14 units Insulin Glargine (Lantus Per Unit Charge) 14 units SQ [facility]; Protocol Stop: 07/17/22 20:59 Last Admin: 06/27/22 20:26 Dose: 14 units Latanoprost (Latanoprost 0.005% Op Soln 2.5 Ml Btl) 1 drops OPB [facility] Stop: 07/17/22 21:04 Last Admin: 06/27/22 20:25 Dose: 1 drops Levothyroxine Sodium (Levothyroxine Sodium 150 Mcg Tablet) [facility] Stop: 07/05/22 06:29 Last Admin: 06/28/22 05:51 Dose: 150 mcg Menthol (Cough Drop (Sugar Free) Norman 24 Norman/1 Box) 1 norman BUCCAL Q2H PRN PRN Reason: Sore Throat Stop: 07/10/22 17:08 Last Admin: 06/11/22 23:23 Dose: 1 norman Miscellaneous (Daptomycin Post-Hd - Pending Order) 1 each N/A SuTuThSa@1800 [facility] Stop: 07/01/22 17:59 Last Admin: 06/25/22 06:00 Dose: Not Given Nitroglycerin (Nitroglycerin Sl 0.4 Mg/Tab Tab) 0.4 mg SL PRN PRN PRN Reason: Chest Pain Stop: 07/15/22 18:44 Polyethylene Glycol (Polyethylene (Miralax) 17 Gm Pack) 17 gm PO DAILY PRN PRN Reason: Constipation Stop: 06/28/22 16:06 Last Admin: 06/17/22 21:29 Dose: 17 gm Ropinirole HCl (Ropinirole Hcl 0.25 Mg Tablet) 0.25 mg PO [facility] Stop: 07/15/22 20:59 Last Admin: 06/27/22 20:24 Dose: 0.25 mg Vitamin B Complex/Folic Acid (Nephrocaps) 1 cap PO BID [facility] Stop: 07/09/22 12:14 Last Admin: 06/28/22 08:13 Dose: 1 cap Warfarin Sodium (Warfarin Sod 1 Mg Tab) 1 mg PO DAILY@1600 ROSA M Stop: 07/26/22 15:59 Last Admin: 06/27/22 16:41 Dose: 1 mg
[2022-06-28 08:12] LABS: BUN Creatinine Ratio 11.2 (10-20); Calcium 8.8 mg/dl (8.5-10.1); Creatinine Clr Calc Pharmacy 14.9 ml/min; Est GFR (African American) 14.8 ml/min; Est GFR (Non-African American) 12.8 ml/min; Potassium 4.5 mmol/L (3.5-5.1)
[2022-06-28] MEDS: FLUTICASONE PROPIONATE NA SPR 16 GM BTL SCH (08:13)
[2022-06-28] MEDS: NEPHROCAPS PO SCH ×2 (08:13→20:39)
[2022-06-28] MEDS: AMIODARONE 200 MG TAB PO SCH (08:13)
[2022-06-28] MEDS: COLLAGENASE OINT 30 GM TUBE EXT SCH (08:14)
[2022-06-28] MEDS ORDERED: SODIUM CHLORIDE 0.9% 1000ML 1,000 ML IV PRN ×2 (08:38→08:56)
[2022-06-28] MEDS: HYDROCODONE/ACETAMOPHEN 5/325MG TAB PO PRN ×2 (08:47→17:28)
[2022-06-28] MEDS ORDERED: MIDODRINE HCL 10 MG TAB PO ONE (08:48)
[2022-06-28] MEDS ORDERED: ALBUMIN 25% 12.5 GM/50 ML VIAL IV SCH ×2 (09:00→12:00)
[2022-06-28] MEDS ORDERED: IRON SUCROSE IV SCH (09:00)
[2022-06-28] MEDS ORDERED: EPOETIN ALFA 20,000 UNITS/ML VIAL IV SCH (09:00)
[2022-06-28] MEDS ORDERED: HEPARIN SOD (PORCINE) 1000 UNIT/ML IV SCH (09:00)
[2022-06-28] MEDS ORDERED: [UNRECOGNIZED DRUG - MIXTURE] EXT SCH (09:30)
--- NOTE | 2022-06-28 09:53 | Surgery Consultation ---
Date of Consultation June 28, 2022 Assessment & Plan (1) Sacral osteomyelitis: (2) Hemodialysis patient: Plan Culture was obtained today due to foul odor. Irrigating wound VAC with Dakin's has been ordered. Would recommend use of Envella bed. Discussed that sitting up in bed or sitting at the bedside is probably contributing to these ulcerations. Discussed with patient the importance of offloading. She feels she does not need to do this due to alternating air mattress which she is presently using. Discussed that while this is helpful, she really does need to continue to turn and reposition as well. Prealbumin has been ordered. There is necrotic tissue at the wound periphery, indicating extent of the ulceration. She was unable to tolerate any manipulation of this tissue today, and therefore I recommended applying Santyl ointment to this tissue as well for now. Further surgery would only serve to extend the wound at this time, and she is not going to be a candidate for reconstruction anytime in the near future, given depth of wound and lack of available tissue in the area to recruit for closure. If she is able to be discharged, she may be a candidate for hyperbaric oxygen therapy but would need to be seen in consultation for this by the wound care center staff. We did discuss the likely chronic nature of this wound and possibility of making the wound "palliative" meaning that we would work to prevent further ulceration and infection, but would not actively try to heal the wound. She is not currently interested in this option. History of Present Illness Reason for Consultation: Nonhealing sacral wound Attending Physician: Kushal Wayne MD History of Present Illness Patient is a 67-year-old female, history end-stage renal disease on hemodialysis, diabetes mellitus admitted in April for worsening sacral ulcer. This is due to history of radiation secondary to anal cancer. She initially sought treatment at the wound care center back in January, hoping to have hyperbaric oxygen therapy performed. She was seen by Dr. Weems, who had concerns about recurrent cancer, sent her for evaluation. She underwent diverting colostomy as well as wound debridement at [facility], stated at that time the wound was rather small. She did undergo debridement of the area, feels the wound has worsened since then. She is experiencing pain at the site. Has a history of hyperbaric oxygen therapy about 10 to 12 years ago, underwent treatment for 3 months and felt that this had helped her. She presented to our emergency room in April with sepsis, was treated in the ICU with pressors, underwent [address] Baldwin. Presently on daptomycin. Wound is presently being treated with Santyl ointment and wet-to-dry dressings. Dr. Baldwin does not feel any further surgical debridement would be of benefit. She is seen today with Dr. Wayne and nurse at bedside. Nurse reports patient has tried irrigating wound VAC and also silver foam VAC. Also notes patient is having challenges getting adequate protein. Patient states she does sit at the bedside for 1 to 2 hours when her comes to visit, says nurses do not allow her out of bed. She expresses wanting to heal the wound but also states "she cannot live like this". She is awaiting placement which is a challenge due to need for daptomycin. Today, she reports pain at the site. Allergies Allergy/AdvReac Type Severity Reaction Status Date / Time fluorescein Allergy Severe EYE Verified 06/10/22 09:04 SWELLING AND THROAT SWELLING lisinopril Allergy Intermediate "CHOKING" Verified 06/10/22 09:04 cephalexin Allergy Mild HIVES Verified 06/10/22 09:04 meperidine Allergy Mild NAUSEA Verified 06/10/22 09:04 Penicillins Allergy Mild Rash Verified 06/10/22 09:04 Home Medications Medication Instructions Recorded Confirmed Type Daptomycin Iv 750 mg IV .Q FRI 05/14/22 05/14/22 History atorvastatin 40 mg tablet 40 mg PO QAM 05/14/22 05/14/22 History brimonidine 0.2 %-timolol 0.5 % 1 drp OPB [facility] 05/14/22 05/14/22 History eye drops daptomycin 500 mg intravenous 500 mg IV .ONCE A DAY ON 05/14/22 05/14/22 History solution fluconazole 200 mg tablet 200 mg PO QAM 05/14/22 05/14/22 History furosemide 20 mg tablet (Lasix) 20 mg PO QAM 05/14/22 05/14/22 History gabapentin 300 mg capsule 300 mg PO HS 05/14/22 05/14/22 History hydroxyzine HCl 25 mg tablet 25 mg PO Q6 PRN Anxiety 05/14/22 05/14/22 History insulin aspart U-100 100 unit/mL 0 unit subcut .PM MEAL 05/14/22 05/14/22 Histo ry (3 mL) subcutaneous pen (Novolog Flexpen U-100 Insulin aspart) insulin glargine 100 unit/mL (3 40 unit subcut QAM 05/14/22 05/14/22 History mL) subcutaneous pen (Basaglar KwikPen U-100 Insulin) latanoprost 0.005 % eye drops 1 drp OPB HS 05/14/22 05/14/22 History levothyroxine 137 mcg tablet 137 mcg PO DAILY 05/14/22 05/14/22 History loperamide 2 mg capsule 2 mg PO DIRECTED PRN Diarrhea 05/14/22 05/14/22 History midodrine 5 mg tablet 5 mg PO TID 05/14/22 05/14/22 History nitroglycerin 0.4 mg sublingual 0.4 mg sublingual DIRECTED PRN 05/14/22 05/14/22 History tablet (Nitrostat) Chest Pain ondansetron HCl 4 mg tablet 4 mg PO DIRECTED PRN Nausea 05/14/22 05/14/22 History oxycodone 5 mg/5 mL oral solution 2.5 mg PO DAILY PRN Severe Pain 05/14/22 05/14/22 History (Scale Score 7-10) pantoprazole 40 mg tablet,delayed 40 mg PO DAILY 05/14/22 05/14/22 History release ropinirole 0.25 mg tablet 0.25 mg PO HS 05/14/22 05/14/22 History sodium hypochlorite 0.25 % solution 1 applic topical DAILY 05/14/22 05/14/22 History triamcinolone acetonide 0.1 % 1 applic topical DIRECTED 05/14/22 05/14/22 History topical cream Patient History Medical History (Updated 06/22/22 @ 08:55 by Felipe Mcguire PA-C) Accelerating angina Anemia Anemia due to stage 5 chronic kidney disease treated with erythropoietin Atherosclerosis of mi'kmaq arteries of extremities with rest pain, left leg Cancer of anorectal junction Cat bite of left forearm Cervical cancer Chronic lower GI bleeding Chronic radiation dermatitis Chronic stable angina CKD (chronic kidney disease) stage 5, GFR less than 15 ml/min CKD, patient preferred treatment modality in-center hemodialysis Closed fracture of phalanx of left fifth toe Colonic polyp Coronary artery disease 50% lad stenosis, an 80% obtuse marginal stenosis, and a 50% PDA stenosis. It should be noted her PDA arose from her left circumflex. Demand ischemia of myocardium DM type 2 with diabetic peripheral neuropathy Encounter for colorectal cancer screening 02/10/07 ESRD (end stage renal disease) on dialysis Heart failure with preserved ejection fraction, borderline, class II Hemodialysis patient History of treatment of incomplete miscarriage x3 History of hyperbaric oxygen therapy 07/2011, 11/2011, 60 treatments. History of rectal or anal cancer HTN (hypertension) Hx of barium enema Hx of mammogram Hyperlipidemia Hyperparathyroidism Hyponatremia Hypothyroidism Injection of surface of both eyes Injection of eye drug, Lucentis 0.3mg by Dr. Taveras Iron deficiency anemia due to chronic blood loss Major depressive disorder Melanoma of back Myocardial infarction Non-compliance Other pancytopenia PAD (peripheral artery disease) Proliferative diabetic retinopathy of both eyes without macular edema associated with diabetes mellitus due to underlying condition Radiation proctitis Retinal edema Retinal lesion S/P arteriogram of extremity Thrombocytopenia Type 2 diabetes mellitus Uncontrolled type 2 diabetes mellitus with retinopathy of left eye, with long- term current use of insulin Uterine cancer Vitreous hemorrhage of right eye Surgical History (Updated 06/10/22 @ 11:11 by Judith Wiley RN) H/O cataract removal with insertion of prosthetic lens H/O colonoscopy adhesions and radiation colitis precluded advancing scope through the sigmoid. Exam discontinued. H/O eye surgery partial removal of eye fluid, bilateral H/O laparoscopy appendectomy History of breast surgery left breast, 1982 History of insertion of tunneled central venous catheter (CVC) with port History of revascularization procedure of lower extremity Hx of angioplasty Hx of biopsy benign right breast biopsy about 20 years ago. Hx of colonoscopy 08/31/2017, multiple colonic angioectasias from prior radiation/narrowed and scarred left colon from multiple prior surgeries/colonoscopy flexible proximal diagnositic performed by Chandler Gill. S/P debridement (05/27/22) Debridement of Sacral Ulcer with Bone Biopsy(Not Applicable) - Shawn Baldwin MD, FACS S/P debridement (06/10/22) Debridement of Sacral Ulceration(Not Applicable) - Shawn Baldwin MD, FACS S/P laser trabeculoplasty of eye S/P tonsillectomy Status post total abdominal hysterectomy Social History Smoking Status: Never smoker Hx Alcohol Use: No Hx Substance Use: No Preferred Language: Telugu Communication Ability: Effective Beliefs That Will Affect Care: None marital status: Current Living Situation: Spouse current occupational status: employed current occupation: has own salon How many Children do You have: 1 How many Children do You have Comment: special needs child Feels Safe at Home: Yes Safety Concerns: Feels Safe At This Time caffeine: No Assistive Devices: None Physical Exam Physical Exam: Stage IV sacral ulceration, very large, measurements not obtained but would estimate nearly 30 cm in greatest diameter, spiculated sacrum present at wound base. Wound periphery shows tissue necrosis consistent with full-thickness tissue loss. There are apparent new ulcerations left ischium, right posterior thigh. Wound has green drainage and foul odor. Manipulation of even fully necrotic tissue causes pain for patient on exam today. Results & Data ([facility]) Vital Signs (Past 12 Hours) Vital Signs Temp Pulse Pulse Resp BP Pulse Ox O2 Del Method 06/28/22 07:04 97.5 F L 80 17 101/62 100 Nasal Cannula 06/28/22 06:04 97.9 F 88 16 95/61 L 96 Nasal Cannula 06/28/22 02:54 98.6 F 95 H 18 91/56 L 98 Nasal Cannula 06/28/22 00:00 87 06/27/22 22:00 Nasal Cannula 06/27/22 23:41 94 H 93/60 L 06/27/22 22:05 99.9 F H 96 H 17 82/51 L 92 Nasal Cannula O2 Flow Rate 06/28/22 07:04 2 06/28/22 06:04 2 06/28/22 02:54 2 06/28/22 00:00 06/27/22 22:00 2 06/27/22 23:41 06/27/22 22:05 2 Laboratory Results Most recent hemoglobin A1c May 15 5.9, review of records indicates in November hemoglobin A1c was 9.3 Review of albumin indicates range of 2.0-2.7, no prealbumin available for review. Hemoglobin 8.0 on June 24, white blood cell count 12.2 June 24 Last culture of wound performed on May 27 VRE Pathology from most recent debridement performed on June 14 shows acute osteomyelitis PG Care Time/CCT Total # of Minutes Spent Total Time Spent with Patient: Total time spent is greater than 50% in coordination of care (as documented) at patient's floor/unit and/or counseling patient: 40 minutes Coding Level of Care Code 37701 Initial Inpt Care Lvl 2 Diagnoses Sacral osteomyelitis M46.28 Hemodialysis patient Z99.2
--- NOTE | 2022-06-28 10:37 | Nephrology Progress Note ---
Date of Service June 28, 2022 Assessment & Plan (1) End-stage renal disease (ESRD): Plan: Had HD on 06/25 w/ goal 3 L off > got 3 L w/ albumin and midodrine > Hd today with midodrine and albumin >her hypotension is best managed w/ more HD in my opinion > would reserve albumin, midodrine for optimizing BP for fluid removal; would assess pt for sx of low BP before treating; could also consider repeat w/u for sepsis Admission and Anticipated Discharge Date Admission Date: May 14, 2022 Subjective Follow-up for sacral osteomyelitis, ESRD, etc. Review of Systems Review of Systems: Other NO sob bilateral pedal edema , improved. Physical Exam Physical Exam: General Appearance: Comfortable, No apparent distress Head: normocephalic, Atraumatic Eyes: normal inspection, EOMI Neck: supple, Trachea midline Respiratory/Chest: Decreased breath sounds, CTA, No accessory muscle use Cardiovascular: S1, S2, No murmur Abdomen/GI:Soft, abd distended, Non tender, Bowel sounds present Extremities/Musculoskeletal:normal inspection, +3 B/L LE edema Neurologic/Psych:AAOX3, grossly no focal neurological deficits Skin: normal color, warm Results & Data ([facility] [place]) Vital Signs (Past 12 Hours) Vital Signs Temp Pulse Pulse Resp BP Pulse Ox O2 Del Method 06/28/22 07:04 36.4 C L 80 17 101/62 100 Nasal Cannula 06/28/22 06:04 36.6 C 88 16 95/61 L 96 Nasal Cannula 06/28/22 02:54 37 C 95 H 18 91/56 L 98 Nasal Cannula 06/28/22 00:00 87 06/27/22 23:41 94 H 93/60 L O2 Flow Rate 06/28/22 07:04 2 06/28/22 06:04 2 06/28/22 02:54 2 06/28/22 00:00 06/27/22 23:41 Laboratory Results 06/24/22 08:30 06/28/22 07:20
[2022-06-28] MEDS: HEPARIN SOD (PORCINE) 1000 UNIT/ML IV SCH ×2 (11:44→13:18)
[2022-06-28] MEDS: WARFARIN SOD 1 MG TAB PO SCH (15:32)
[2022-06-28] MEDS: DAPTOmycin 550 MG in SYRINGE 0 ML IV SCH (15:32)
[2022-06-28] MEDS ORDERED: HYDROmorphone INJ 0.5 MG/0.5 ML SYR IV STA (20:05)
[2022-06-28] MEDS: rOPINIRole HCL 0.25 MG TABLET PO SCH (20:39)
[2022-06-28] MEDS: LANTUS PER UNIT CHARGE SQ SCH (20:39)
[2022-06-28] MEDS: GABAPENTIN 300 MG CAP PO SCH (20:39)
[2022-06-28] MEDS: LATANOPROST 0.005% OP SOLN 2.5 ML BTL OPB SCH (20:41)
[2022-06-29] MEDS: HYDROCODONE/ACETAMOPHEN 5/325MG TAB PO PRN ×3 (02:00→22:05)
[2022-06-29] MEDS: HYDROmorphone INJ 0.5 MG/0.5 ML SYR IV PRN ×2 (05:00→12:24)
[2022-06-29] MEDS: LEVOTHYROXINE SODIUM 150 MCG TABLET PO SCH (06:10)
[2022-06-29] MEDS: INSULIN ASPART PER UNIT SC SCH ×4 (08:04→22:02)
[2022-06-29] MEDS: AMIODARONE 200 MG TAB PO SCH (10:23)
[2022-06-29] MEDS: FLUTICASONE PROPIONATE NA SPR 16 GM BTL SCH (10:23)
[2022-06-29] MEDS: NEPHROCAPS PO SCH ×2 (10:23→22:04)
[2022-06-29] MEDS ORDERED: CEFEPIME 2,000 MG in SYRINGE 0 ML IV SCH (10:30)
--- NOTE | 2022-06-29 10:32 | Hospitalist Progress Note ---
Date of Service June 29, 2022 Assessment & Plan (1) Sacral osteomyelitis: Plan Sacral Wound Osteomyelitis ( Biopsy confirmed on 06/10) Has undergone multiple debridement; last one in 06/10/2022. Had wound VAC placed but got dislodged. Currently on daily dressing. Sacral Wound Grew: Enterococcus VRE on 05/27/2022 Source likely stage IV sacral ulcer with likely underlying osteomyelitis Initially was on broad spectrum abx with intravenous cefepime, daptomycin and o ral fluconazole S/P debridement of sacral ulcer with bone biopsy on 05/27/2022 and repeat debridement 06/10 Evaluated by surgery and ID- recommendations noted Plan: Dr. Rasmussen - previous hospitalist discussed over the phone with infectious disease (Dr. Mclean) over the phone on 06/14. He suggested daptomycin for 3 more weeks. However, given the extent of her sacral wound; infection control is difficult. Recommend aggressive wound care. Discussed with family at bedside; they do not want her to go to [facility]. Would prefer her to go to [facility]. We will continue aggressive wound care daily while inpatient. . Appreciate surgery recommendation. Pain management service consulted-tramadol changed to hydrocodone, continue gabapentin HS, continue IV Dilaudid as needed 06/24 - pain seems to be improved, but continues to feel some "burning" in sacral area 06/26 Pain improved and also BP improved. Current BP 101/55 06/28 - patient seen by plastic surgery today, culture obtained from the wound, pending. Prealbumin ordered Wound unfortunately not improving Please see surgeon's note for further detail 06/29 -wound culture now growing gram-negative bacilli, cefepime started She is currently on daptomycin for Enterococcus facecium VRE ID reconsulted Given low prealbumin, not a good surgical candidate, wound has been difficult to heal Per plastic surgery, dressings changed to acetic acid for next 10 days due to positive wound culture -please see their note for further detail Headache CT head: negative resolved Adjustment disorder with depressed mood Appreciate psychiatrist input and recommendation Vitamin B12, folate and TSH are normal stable Anemia: Chronic anemia in the setting of ESRD and GI losses (reported but not observed) and phlebotomy Was reportedly getting ?EPO injections with HD per Patient - continue EPO per renal No signs of active bleeding Positive FOBT S/P PRBCs during HD Monitor CBC: ~ Hgb 8 New onset atrial fibrillation: On amiodarone 200mg once daily. On Coumadin 1.5mg. Decreased to 1mg. INR 2.6 monitor INR Ulcer of sacral region, stage 4: - plan as above. Radiation necrosis of skin and subcutaneous: - plan as above Acute hyponatremia: - likely due to sepsis and decrease po intake Sodium level stable Monitor End-stage renal disease (ESRD): Has been on HD for the past year, per patient Normal HD schedule MWF Continue hemodialysis as per Nephrology Diabetes: Continue insulin per protocol Hypothyroid: TSH 22, FT4 <0.25 unclear if patient taking medication appropriately TSH normalized with restarting levothyroxine Thrombocytopenia: unclear chronicity likely consumption in sepsis, ESRD, chronic illness no signs of bleeding resolved Coagulopathy: Monitor INR: 9.6>3.1>2.7>3.6->3.4->2.1->2 > 2.5> 2.1> 1.8 No obvious bleeding issues current INR 2.6 - cont. coumadin at lower dose 1mg, monitor INR Plan DVT px:coumadin Dispo- awaiting placement to SNF Code Status: DNI/DNR Admission and Anticipated Discharge Date Admission Date: May 14, 2022 Subjective Follow-up for sacral osteomyelitis, ESRD, etc. Pt is resting, laying in bed , in NAD Patient seen with plastic surgeon, and nurse at the bedside yesterday -culture was obtained from the wound, please see surgeon's note for more detail Culture growing gram-negative bacilli/cefepime started, will discuss further with ID (patient is currently on daptomycin for Enterococcus faecium VRE) Bed changed to Envella Dressings changed to use acetic acid Reports pain, in sacral wound area on and off, but painful when examined by the surgeon. Reports that her was visiting the other day, and she was able to sit at the edge of her bed - she was advised not to do that, and to offload her wound. Seen by pain management earlier- now on gabapentin, hydrocodone, stopped tramadol No fever, chills, shortness of breath, chest pain, dizziness, palpitations, nausea vomiting Had HD yesterday Review of Systems Review of Systems: All systems reviewed & are unremarkable except as noted in Subjective Physical Exam Physical Exam: General- awake and alert, not in distress, on HD, speaks in full sentences with no effort or accessory muscle use Eyes- EOMI, anicteric Neck- no JVD Lungs- anteriorly clear BS bilaterally, no rales/wheezes Heart- normal rate, regular rhythm; no murmurs Abdomen- normal bowel sounds, nondistended, soft, nontender Back - significant sacral wound - reviewed w/ surgery at the bedside - pls. see their note for detail Extremities- + bilateral lower extremity edema (improved), no calf tenderness, Neuro- alert, oriented x 3; no gross focal neurologic deficits Skin- warm & dry Results & Data Results & Data ([facility]) Vital Signs (Past 12 Hours) Vital Signs Temp Pulse Pulse Resp BP Pulse Ox O2 Del Method 06/29/22 07:11 36.5 C 84 18 89/56 L 100 Nasal Cannula 06/28/22 23:00 87 06/29/22 02:35 36.6 C 91 H 16 96/64 L 100 Nasal Cannula 06/28/22 22:33 36.9 C 90 20 101/67 100 Nasal Cannula O2 Flow Rate 06/29/22 07:11 2 06/28/22 23:00 06/29/22 02:35 2 06/28/22 22:33 2 Laboratory Results 06/29/22 06/29/22 06/29/22 Range/Units 07:12 05:55 02:46 POC Glucose 171 H 201 H (70-99) mg/dl Prealbumin 3.9 L (20-40) mg/dl 06/28/22 06/28/22 06/28/22 Range/Units 19:44 16:24 13:59 POC Glucose 168 H 194 H 105 H (70-99) mg/dl Prealbumin (20-40) mg/dl Medications Administered Current Inpatient Medications Acetaminophen (Acetaminophen 325 Mg Tab) 650 mg PO Q8H PRN PRN Reason: Mild pain Stop: 07/11/22 11:59 Last Admin: 06/27/22 20:24 Dose: 650 mg Hydrocodone Bitart/Acetaminophen (Hydrocodone/Acetamophen 5/325mg Tab) 1 tab PO Q6H PRN PRN Reason: Pain Stop: 07/06/22 08:25 Last Admin: 06/29/22 02:00 Dose: 1 tab Amiodarone HCl (Amiodarone 200 Mg Tab) 200 mg PO DAILY ROSA M Stop: 07/05/22 23:59 Last Admin: 06/29/22 10:23 Dose: 200 mg Collagenase (Collagenase Oint 30 Gm Tube) 1 appln EXT DAILY [facility] Stop: 07/15/22 12:44 Last Admin: 06/28/22 08:14 Dose: 1 appln Diphenhydramine HCl (Diphenhydramine Capsule 25 Mg Cap) 25 mg PO BID PRN PRN Reason: Allergy Symptoms Stop: 07/09/22 20:12 Last Admin: 06/27/22 15:14 Dose: 25 mg Fluticasone Propionate (Fluticasone Propionate Na Spr 16 Gm Btl) 2 sprays NA DAILY [facility] Stop: 07/12/22 22:24 Last Admin: 06/29/22 10:23 Dose: 2 sprays Gabapentin (Gabapentin 300 Mg Cap) 300 mg PO HS [facility] Stop: 07/22/22 20:59 Last Admin: 06/28/22 20:39 Dose: 300 mg Hydromorphone HCl (Hydromorphone Inj 0.5 Mg/0.5 Ml Syr) 0.25 mg IV Q6H PRN PRN Reason: Pain Stop: 07/05/22 12:52 Last Admin: 06/29/22 05:00 Dose: 0.25 mg Daptomycin 550 mg/ Syringe 11 mls @ 5.5 mls/min IV MoWe@1400 ROSA M; Protocol Stop: 07/05/22 13:59 Last Admin: 06/28/22 15:32 Dose: 5.5 mls/min Daptomycin 800 mg/ Syringe 16 mls @ 8 mls/min IV Fr@1400 ROSA M; Protocol Stop: 07/02/22 13:59 Last Admin: 06/25/22 15:33 Dose: 8 mls/min Albumin Human (Albumin 25%) 12.5 gm in 50 mls @ 50 mls/hr IV ONCE ONE Last Infusion: 06/14/22 13:33 Dose: Infused Cefepime HCl 2,000 mg/ Syringe 20 mls @ 5 mls/min IV Q8H [facility]; Protocol Stop: 07/06/22 10:29 Insulin Aspart (Insulin Aspart Per Unit) 0 units SC [facility]; Protocol Stop: 07/16/22 11:29 Last Admin: 06/29/22 08:04 Dose: 15 units Insulin Glargine (Lantus Per Unit Charge) 14 units SQ [facility]; Protocol Stop: 07/17/22 20:59 Last Admin: 06/28/22 20:39 Dose: 14 units Latanoprost (Latanoprost 0.005% Op Soln 2.5 Ml Btl) 1 drops OPB [facility] Stop: 07/17/22 21:04 Last Admin: 06/28/22 20:41 Dose: 1 drops Levothyroxine Sodium (Levothyroxine Sodium 150 Mcg Tablet) [facility] Stop: 07/05/22 06:29 Last Admin: 06/29/22 06:10 Dose: 150 mcg Menthol (Cough Drop (Sugar Free) Norman 24 Norman/1 Box) 1 norman BUCCAL Q2H PRN PRN Reason: Sore Throat Stop: 07/10/22 17:08 Last Admin: 06/11/22 23:23 Dose: 1 norman Miscellaneous (Daptomycin Post-Hd - Pending Order) 1 each N/A Kian@1800 [facility] Stop: 07/01/22 17:59 Last Admin: 06/29/22 10:30 Dose: Not Given Nitroglycerin (Nitroglycerin Sl 0.4 Mg/Tab Tab) 0.4 mg SL PRN PRN PRN Reason: Chest Pain Stop: 07/15/22 18:44 Ropinirole HCl (Ropinirole Hcl 0.25 Mg Tablet) 0.25 mg PO [facility] Stop: 07/15/22 20:59 Last Admin: 06/28/22 20:39 Dose: 0.25 mg Vitamin B Complex/Folic Acid (Nephrocaps) 1 cap PO BID [facility] Stop: 07/09/22 12:14 Last Admin: 06/29/22 10:23 Dose: 1 cap Warfarin Sodium (Warfarin Sod 1 Mg Tab) 1 mg PO DAILY@1600 [facility] Stop: 07/26/22 15:59 Last Admin: 06/28/22 15:32 Dose: 1 mg
--- NOTE | 2022-06-29 11:06 | Surgery Progress Note ---
Date of Service June 29, 2022 Assessment & Plan (1) Ulcer of sacral region, stage 4: Plan: Patient is now in Envella bed. We reviewed her pre-albumin, at this level she is currently not compatible with healing from any surgery. Will ask travel trailer components assembler to meet with patient, find way to increase protein in her diet and add supplements. Patient is willing to add additional Boost, does complain about taste of other protein sources. Case was reviewed with [place], wound care, she has attempted to vac in the past but wound was too moist and unable to maintain a seal. Because there is gram negative bacilli in wound, will change dressing to damp-to-dry using acetic acid. Plan I personally saw and examined this patient with Gisela and we discussed the case with [place] Szymanski. Envella bed preferable for now although this may impair ability to sit at bedside and also may pose challenges for transport to dialysis. There is no capacity for her to heal given prealbumin 3.9 and therefore no role for surgical intervention. This is likely contributing to further breakdown. Will ask nutrition to see her again. Based on gram stain, will change dressing to acetic acid to provide topical antimicrobial coverage. VAC unlikely to be possible given challenges with seal. Continue acetic acid x 10 days, then return to [facility]. Will follow peripherally. Admission and Anticipated Discharge Date Admission Date: May 14, 2022 Sushant Michele is being seen at bedside today with Dr. Leon. She is in Envella bed. Pre-albumin returned at 3.9. Physical Exam Physical Exam: in Envella bed, dressings intact gram stain shows gram negative bacilli Results & Data ([facility]) Vital Signs (Past 12 Hours) Vital Signs Temp Pulse Pulse Resp BP Pulse Ox O2 Del Method 06/29/22 10:51 36.5 C 90 18 100/65 100 Nasal Cannula 06/29/22 07:11 36.5 C 84 18 89/56 L 100 Nasal Cannula 06/28/22 23:00 87 06/29/22 02:35 36.6 C 91 H 16 96/64 L 100 Nasal Cannula O2 Flow Rate 06/29/22 10:51 2 06/29/22 07:11 2 06/28/22 23:00 06/29/22 02:35 2 PG Care Time/CCT Total # of Minutes Spent Total Time Spent with Patient: Total time spent is greater than 50% in coordination of care (as documented) at patient's floor/unit and/or counseling patient: Coding Level of Care Code 17073 Subseq Hosp Care Lvl 2 Diagnoses Ulcer of sacral region, stage 4 L98.429
[2022-06-29] MEDS: CEFEPIME 1,000 MG in SYRINGE 0 ML IV SCH (12:24)
[2022-06-29] MEDS: COLLAGENASE OINT 30 GM TUBE EXT SCH (14:30)
[2022-06-29] MEDS: WARFARIN SOD 1 MG TAB PO SCH (17:36)
[2022-06-29] MEDS: LANTUS PER UNIT CHARGE SQ SCH (22:01)
[2022-06-29] MEDS: LATANOPROST 0.005% OP SOLN 2.5 ML BTL OPB SCH (22:02)
[2022-06-29] MEDS: GABAPENTIN 300 MG CAP PO SCH (22:03)
[2022-06-29] MEDS: rOPINIRole HCL 0.25 MG TABLET PO SCH (22:04)
[2022-06-30] MEDS: HYDROmorphone INJ 0.5 MG/0.5 ML SYR IV PRN ×3 (00:26→21:43)
[2022-06-30] MEDS: LEVOTHYROXINE SODIUM 150 MCG TABLET PO SCH (06:42)
[2022-06-30] MEDS ORDERED: HEPARIN SOD (PORCINE) 1000 UNIT/ML IV ONE (07:00)
[2022-06-30] MEDS ORDERED: EPOETIN ALFA 20,000 UNITS/ML VIAL IV ONE (07:00)
[2022-06-30] MEDS ORDERED: SODIUM CHLORIDE 0.9% 1000ML 1,000 ML IV PRN (07:00)
[2022-06-30] MEDS: INSULIN ASPART PER UNIT SC SCH ×4 (07:47→20:38)
[2022-06-30] MEDS: FLUTICASONE PROPIONATE NA SPR 16 GM BTL SCH (09:38)
[2022-06-30] MEDS ORDERED: MIDODRINE HCL 10 MG TAB PO STA (09:45)
[2022-06-30] MEDS: HYDROCODONE/ACETAMOPHEN 5/325MG TAB PO PRN ×3 (09:46→23:25)
[2022-06-30] MEDS: AMIODARONE 200 MG TAB PO SCH (09:47)
[2022-06-30 11:05] LABS: BUN Creatinine Ratio 13.1 (10-20); Calcium 8.7 mg/dl (8.5-10.1); Creatinine Clr Calc Pharmacy 15.5 ml/min; Est GFR (African American) 15.5 ml/min; Est GFR (Non-African American) 13.4 ml/min; Potassium 4.1 mmol/L (3.5-5.1)
--- NOTE | 2022-06-30 11:51 | Dialysis Progress Note ---
Date of Service June 30, 2022 Assessment & Plan Admission and Anticipated Discharge Date Admission Date: May 14, 2022 Subjective Assessment & Plan (1) End-stage renal disease (ESRD): Plan: for HD today w/ goal 3 L off BP low as usual. Albumin did not make any difference so did not use today Compared to last time i saw her 2 weeks ago she is better fluid mandujano. Lot less edema. Will try to do 4 days a week dialysis as allowed by scheduling. Subjective Seen during dialysis. She is crying because of being in hospital for so long. BP is low. no Symptoms though Review of Systems Review of Systems: All systems reviewed & are unremarkable except as noted in Subjective Physical Exam Constitutional: well developed and well nourished Eyes: EOM intact bilaterally ENMT: Ears: no external ear abnormality Nose: no external nose abnormality Mouth: + dry oral mucous membranes Neck: no nuchal rigidity Respiratory: normal respiratory effort Auscultation: + diminished lung sounds Cardiovascular: Rate/Rhythm: regular rate and regular rhythm Extremities: + edema (1+) Gastrointestinal (Abdomen): Inspection/Auscultation: normal bowel sounds Percussion/Palpation: abdomen soft; abdomen nontender Musculoskeletal: Extremities: strength 5/5 throughout Skin: no rashes, warm and dry Results & Data ([facility]) Vital Signs (Past 12 Hours) Vital Signs Temp Pulse Pulse Resp BP BP Pulse Ox 06/30/22 11:30 91 H 85/68 L 06/30/22 11:00 81 116/65 06/30/22 10:30 88 94/46 L 06/30/22 10:00 90 96/52 L 06/30/22 09:55 36.8 C 92 H 06/30/22 08:00 06/30/22 08:00 81 06/30/22 07:14 36.6 C 86 18 93/59 L 100 06/30/22 04:09 36.9 C 85 20 88/59 L 100 O2 Del Method O2 Flow Rate 06/30/22 11:30 06/30/22 11:00 06/30/22 10:30 06/30/22 10:00 06/30/22 09:55 06/30/22 08:00 Nasal Cannula 2 06/30/22 08:00 06/30/22 07:14 Nasal Cannula 2 06/30/22 04:09 Nasal Cannula 2.0
[2022-06-30] MEDS: MIDODRINE HCL 10 MG TAB PO SCH ×2 (15:47→18:05)
[2022-06-30] MEDS: NEPHROCAPS PO SCH ×2 (15:47→20:18)
[2022-06-30] MEDS: ACETIC ACID 0.25% IRRIG SOLN 1000 ML PLCT IR SCH (15:47)
[2022-06-30] MEDS: CEFEPIME 1,000 MG in SYRINGE 0 ML IV SCH (15:47)
[2022-06-30] MEDS: DAPTOmycin 550 MG in SYRINGE 0 ML IV SCH ×2 (15:47→15:58)
[2022-06-30] MEDS: COLLAGENASE OINT 30 GM TUBE EXT SCH (15:47)
[2022-06-30] MEDS: WARFARIN SOD 1 MG TAB PO SCH ×2 (15:48→18:05)
[2022-06-30 16:37] LABS: INR 2.5 (0.9-1.1); Prothrombin Time 25.8 Seconds (9.0-12.0)
--- NOTE | 2022-06-30 17:50 | Hospitalist Progress Note ---
Date of Service June 30, 2022 Assessment & Plan (1) Sacral osteomyelitis: Plan Sacral Wound Osteomyelitis Had Multiple debridements Had wound VAC placed but got dislodged Sacral Wound Grew: Enterococcus VRE on 05/27/2022 Stage IV sacral ulcer with likely underlying osteomyelitis S/P debridement of sacral ulcer with bone biopsy on 05/27/2022 and repeat debridement 06/10 Evaluated by surgery and ID Was on IV cefepime, daptomycin and oral fluconazole As per Prior hospitalists: Hospitalist discussed with ID, on 06/14. He suggested daptomycin for 3 more weeks. However, given the extent of her sacral wound; infection control is difficult. Continue aggressive wound care. Discussed with family at bedside; they do not want her to go to [facility]. Would prefer her to go to [facility]. We will continue aggressive wound care daily while inpatient. . Appreciate surgery recommendation. Appreciate Plastic surgery Input Patient not tolerating Envella bed Wound culture growing Pseudomonas On Daptomycin for Enterococcus facecium VRE ID reconsulted Given low prealbumin, not a good surgical candidate, wound has been difficult to heal Also started on cefepime 06/29/22 Poor Prognosis Continue wound care as per plastic surgery Headache CT head: negative resolved Adjustment disorder with depressed mood Appreciate psychiatrist input and recommendation Vitamin B12, folate and TSH are normal stable Anemia: Chronic anemia in the setting of ESRD and GI losses (reported but not observed) and phlebotomy Was reportedly getting ?EPO injections with HD per Patient - continue EPO per renal No signs of active bleeding Positive FOBT S/P PRBCs during HD Monitor CBC: ~ Hgb 8 New onset atrial fibrillation: On amiodarone 200mg once daily. INR 2.5 today monitor INR Continue Coumadin 1 mg today Stage IV sacral ulcer Radiation necrosis of skin and subcutaneous: Management as above Acute hyponatremia: likely due to sepsis and decrease po intake Sodium level 133 Monitor End-stage renal disease (ESRD): Has been on HD for the past year, per patient Normal HD schedule MWF Continue hemodialysis as per Nephrology DM II: Continue insulin per protocol Hypothyroidism: TSH 22, FT4 <0.25 unclear if patient taking medication appropriately TSH normalized with restarting levothyroxine Thrombocytopenia: unclear chronicity likely consumption in sepsis, ESRD, chronic illness no signs of bleeding resolved DVT Px: Coumadin Code Status: DNI/DNR Admission and Anticipated Discharge Date Admission Date: May 14, 2022 Subjective Patient is seen and examined at bedside Had HD during my encounter States having difficulty tolerating Envella bed Patient denies any chest pain, dyspnea, dizziness Review of Systems Review of Systems: All systems reviewed & are unremarkable except as noted in Subjective Physical Exam Physical Exam: Physical Exam: Vitals signs as noted above General Appearance:Obese, ill appearing Head: normocephalic, Atraumatic Eyes: normal inspection, EOMI Neck: supple, Trachea midline Respiratory/Chest: Decreased breath sounds, CTA, No accessory muscle use Cardiovascular: S1, S2, No murmur Abdomen/GI:Soft, Non tender, +Colostomy, Bowel sounds present Back:significant sacral wound Extremities/Musculoskeletal:normal inspection, no edema Neurologic/Psych:AAOX3, grossly no focal neurological deficits Skin: normal color, warm, +Sacral wound, Wound Vac Results & Data Results & Data ([facility]) Vital Signs (Past 12 Hours) Vital Signs Temp Pulse Pulse Resp BP BP Pulse Ox 06/30/22 16:00 87 06/30/22 13:35 36.7 C 91 H 90/48 L 06/30/22 13:00 85 93/60 L 06/30/22 13:44 36.5 C 87 16 94/62 L 100 06/30/22 12:30 87 90/48 L 06/30/22 12:00 81 86/65 L 06/30/22 11:30 91 H 85/68 L 06/30/22 11:00 81 116/65 06/30/22 10:30 88 94/46 L 06/30/22 10:00 90 96/52 L 06/30/22 09:55 36.8 C 92 H 06/30/22 08:00 06/30/22 08:00 81 06/30/22 07:14 36.6 C 86 18 93/59 L 100 O2 Del Method O2 Flow Rate 06/30/22 16:00 06/30/22 13:35 06/30/22 13:00 06/30/22 13:44 Nasal Cannula 2 06/30/22 12:30 06/30/22 12:00 06/30/22 11:30 06/30/22 11:00 06/30/22 10:30 06/30/22 10:00 06/30/22 09:55 06/30/22 08:00 Nasal Cannula 2 06/30/22 08:00 06/30/22 07:14 Nasal Cannula [address] [facility] 06/30/22 09:57 Sodium 133 L Potassium 4.1 Chloride 100 Carbon Dioxide 27 BUN 44 H Creatinine 3.36 H Glucose 167 H Calcium 8.7
[2022-06-30] MEDS: LATANOPROST 0.005% OP SOLN 2.5 ML BTL OPB SCH (20:17)
[2022-06-30] MEDS: rOPINIRole HCL 0.25 MG TABLET PO SCH (20:18)
[2022-06-30] MEDS: GABAPENTIN 300 MG CAP PO SCH (20:18)
[2022-06-30] MEDS: LANTUS PER UNIT CHARGE SQ SCH (20:39)
[2022-07-01] MEDS: BRIMONIDINE TARTRATE 0.2% 5ML OPB SCH ×2 (00:02→21:51)
[2022-07-01] MEDS: LEVOTHYROXINE SODIUM 150 MCG TABLET PO SCH (06:18)
[2022-07-01] MEDS: INSULIN ASPART PER UNIT SC SCH ×4 (08:49→21:12)
[2022-07-01] MEDS: MIDODRINE HCL 10 MG TAB PO SCH ×3 (08:49→17:48)
[2022-07-01] MEDS: AMIODARONE 200 MG TAB PO SCH (08:50)
[2022-07-01] MEDS: NEPHROCAPS PO SCH ×2 (08:50→21:54)
[2022-07-01] MEDS: FLUTICASONE PROPIONATE NA SPR 16 GM BTL SCH (08:51)
[2022-07-01] MEDS: HYDROCODONE/ACETAMOPHEN 5/325MG TAB PO PRN (08:59)
[2022-07-01] MEDS: COLLAGENASE OINT 30 GM TUBE EXT SCH (09:02)
[2022-07-01] MEDS: CEFEPIME 1,000 MG in SYRINGE 0 ML IV SCH (11:30)
--- NOTE | 2022-07-01 14:24 | Hospitalist Progress Note ---
Date of Service July 01, 2022 Assessment & Plan (1) Sacral osteomyelitis: Plan Sacral Wound Osteomyelitis Had Multiple debridement Had wound VAC placed but got dislodged Sacral Wound Grew: Enterococcus VRE on 05/27/2022 Stage IV sacral ulcer with likely underlying osteomyelitis S/P debridement of sacral ulcer with bone biopsy on 05/27/2022 and repeat debridement 06/10 Evaluated by surgery and ID Was on IV cefepime, daptomycin and oral fluconazole As per Prior hospitalists: Hospitalist discussed with ID, on 06/14. He suggested daptomycin for 3 more weeks. However, given the extent of her sacral wound; infection control is difficult. Continue aggressive wound care. Discussed with family at bedside; they do not want her to go to [facility]. Would prefer her to go to [facility]. We will continue aggressive wound care daily while inpatient. . Appreciate surgery recommendation. Appreciate Plastic surgery Input Patient not tolerating Envella bed Wound culture growing Pseudomonas On Daptomycin for Enterococcus facecium VRE ID reconsulted Given low prealbumin, not a good surgical candidate, wound has been difficult to heal Also started on cefepime 06/29/22 Poor Prognosis Continue wound care as per plastic surgery Adjust Pain control as needed Headache CT head: negative resolved Adjustment disorder with depressed mood Appreciate psychiatrist input and recommendation Vitamin B12, folate and TSH are normal stable Anemia: Chronic anemia in the setting of ESRD and GI losses (reported but not observed) and phlebotomy Was reportedly getting ?EPO injections with HD per Patient - continue EPO per renal No signs of active bleeding Positive FOBT S/P PRBCs during HD Monitor CBC: ~ Hgb 8 New onset atrial fibrillation: On amiodarone 200mg once daily. INR 2.5 today monitor INR Continue Coumadin 1 mg today Stage IV sacral ulcer Radiation necrosis of skin and subcutaneous: Management as above Acute hyponatremia: likely due to sepsis and decrease po intake Sodium level 133 Monitor End-stage renal disease (ESRD): Has been on HD for the past year, per patient Normal HD schedule MWF Continue hemodialysis as per Nephrology DM II: Continue insulin per protocol Hypothyroidism: TSH 22, FT4 <0.25 unclear if patient taking medication appropriately TSH normalized with restarting levothyroxine Thrombocytopenia: unclear chronicity likely consumption in sepsis, ESRD, chronic illness no signs of bleeding resolved DVT Px: Coumadin Code Status: DNI/DNR Admission and Anticipated Discharge Date Admission Date: May 14, 2022 Subjective Patient is seen and examined at bedside No new complaints Reports persistent sacral wound pain Patient denies any chest pain, dyspnea, dizziness Discussed with palliative care today Review of Systems Review of Systems: All systems reviewed & are unremarkable except as noted in Subjective Physical Exam Physical Exam: Physical Exam: Vitals signs as noted above General Appearance:Obese, ill appearing Head: normocephalic, Atraumatic Eyes: normal inspection, EOMI Neck: supple, Trachea midline Respiratory/Chest: Decreased breath sounds, CTA, No accessory muscle use Cardiovascular: S1, S2, No murmur Abdomen/GI:Soft, Non tender, +Colostomy, Bowel sounds present Back:significant sacral wound Extremities/Musculoskeletal:normal inspection, no edema Neurologic/Psych:AAOX3, grossly no focal neurological deficits Skin: normal color, warm, +Sacral wound, Wound Vac Results & Data Results & Data ([facility]) Vital Signs (Past 12 Hours) Vital Signs Temp Pulse Resp BP Pulse Ox O2 Del Method O2 Flow Rate 07/01/22 11:13 36.5 C 81 20 93/60 L 100 Nasal Cannula 2 07/01/22 11:12 Room Air 07/01/22 07:25 36.7 C 80 18 91/58 L 100 Nasal Cannula 2 Laboratory Results Cardiac Enzymes 07/01/22 Range/Units 09:50 Total Creatine Kinase < 10 L (26-192) U/L
[2022-07-01] MEDS: ACETIC ACID 0.25% IRRIG SOLN 1000 ML PLCT IR SCH (15:35)
[2022-07-01] MEDS: DOCUSATE SODIUM 100 MG CAP PO SCH ×2 (15:35→21:53)
[2022-07-01] MEDS: WARFARIN SOD 1 MG TAB PO SCH (15:36)
[2022-07-01] MEDS: CHECK fentaNYL PATCH PLACEMENT SCH (15:36)
[2022-07-01] MEDS: fentaNYL 12 MCG/HR TDSY TD SCH (15:36)
[2022-07-01] MEDS ORDERED: HYDROCODONE/ACETAMOPHEN 5/325MG TAB PO ONE (17:55)
[2022-07-01] MEDS ORDERED: PROMETHAZINE HCL 12.5 MG in SODIUM CHLORIDE 0.9% 50 ML IV PRN (18:16)
--- NOTE | 2022-07-01 18:49 | Palliative Care Progress Note ---
Date of Service July 01, 2022 Assessment & Plan (1) Pain: Plan: Talked with Dr. Ramirez. She would likely benefit from long acting opioid and given her renal failure, fentanyl patch would be best option. Would start at 12 mcg. To simplify med regimen, would d/c hydrocodone and continue prn hydromorphone for now. She is on adjuvant gabapentin as well. (2) Palliative care encounter: Plan: I talked at length with Leny about her goals and expectations for care. She has consistently said that her goal has been to be well enough to be at home, do some cooking and have time with her family. I told her that I was concerned that cooking and being independent at home were likely not realistic goals. She acknowledged that initially and then started to talk about all the baking that she liked to do. I also told her that this may be as good as she is able to get. I asked her if knowing that changed how she felt about the plan for her care. She does say at times that she doesn't want to live but qualifies it with "like this". I explained that if she felt that she did not want to continue care, we could explore the idea of her going home with hospice care. However, that would also involve a decision to stop dialysis. She immediately said "OH NO, I don't want that". She is adamant that she wants to continue dialysis. We talked about the idea that her wish to may be related to depression and frustration with her pain and debility. She agreed with this. We discussed the possibility of starting an antidepressant that may also help with her pain management. Unfortunately, with her ESRD, options are limited. Discussed with Dr. Ramirez. Will monitor with pain medication changes. Admission and Anticipated Discharge Date Admission Date: May 14, 2022 Subjective Asked to see Leny who has been talking about wanting to . She complains of severe pain with dressing changes of her sacral wound that are not relieved with IV hydromorphone. Review of Systems Review of Systems: ESAS Pain 3/3 Dyspnea 0/3 Nausea 0/3 Drowsiness 0/3 Anxiety 2/3 PPS 30% Physical Exam Constitutional: no acute distress Respiratory: normal respiratory effort Gastrointestinal (Abdomen): colostomy Musculoskeletal: Extremities: + muscle atrophy Neurologic: Speech / Cognition: normal cognition Results & Data ([facility]) Vital Signs (Past 12 Hours) Vital Signs Temp Pulse Resp BP Pulse Ox O2 Del Method O2 Flow Rate 07/01/22 15:40 97.7 F 88 101/65 100 Nasal Cannula 2 07/01/22 11:13 97.7 F 81 20 93/60 L 100 Nasal Cannula 2 07/01/22 11:12 Room Air 07/01/22 07:25 98.1 F 80 18 91/58 L 100 Nasal Cannula 2 PG Care Time/CCT Total # of Minutes Spent Total Time Spent: 45 Total Time Spent with Patient: Total time spent is greater than 50% in coordination of care (as documented) at patient's floor/unit and/or counseling patient: goals of care, hospice, symptom management, patient education and support, coordination of care. Coding Level of Care Code 29075 Subseq Hosp Care Lvl 3 Diagnoses Pain R52 Palliative care encounter Z51.5
--- NOTE | 2022-07-01 19:07 | Communication Note ---
Date of Service: July 01, 2022 notified by RN that patient and her are concerned for 'UTI' talked with patient's over the phone patient reporting symptoms of vaginal candidiasis- including discharge- which develops when patient is taking antibiotics requesting Diflucan- explained interaction with patient's Amiodarone explained use of topical antifungal patient's verbalized understanding and agreement with the plan will relay to Dr. Ramirez- patient's attending - tomorrow Jose L Kapoor MD
[2022-07-01] MEDS: MICONAZOLE NITRATE-7 (100 MG EA SUPP) BOX PV SCH ×2 (21:00→21:57)
[2022-07-01] MEDS: LANTUS PER UNIT CHARGE SQ SCH (21:51)
[2022-07-01] MEDS: LATANOPROST 0.005% OP SOLN 2.5 ML BTL OPB SCH (21:53)
[2022-07-01] MEDS: rOPINIRole HCL 0.25 MG TABLET PO SCH (21:54)
[2022-07-01] MEDS: GABAPENTIN 300 MG CAP PO SCH (21:54)
[2022-07-02] MEDS: CHECK fentaNYL PATCH PLACEMENT SCH ×3 (00:47→16:48)
[2022-07-02] MEDS: LEVOTHYROXINE SODIUM 150 MCG TABLET PO SCH (06:36)
[2022-07-02] MEDS ORDERED: HEPARIN SOD (PORCINE) 1000 UNIT/ML IV ONE (07:00)
[2022-07-02] MEDS ORDERED: SODIUM CHLORIDE 0.9% 1000ML 1,000 ML IV PRN (07:00)
[2022-07-02] MEDS ORDERED: FLUCONAZOLE 50 MG TAB PO ONE (07:50)
[2022-07-02] MEDS: INSULIN ASPART PER UNIT SC SCH ×4 (08:11→20:37)
[2022-07-02] MEDS: AMIODARONE 200 MG TAB PO SCH (08:31)
[2022-07-02] MEDS: MIDODRINE HCL 10 MG TAB PO SCH ×3 (08:31→16:48)
[2022-07-02] MEDS: NEPHROCAPS PO SCH ×2 (08:31→20:24)
[2022-07-02] MEDS: FLUTICASONE PROPIONATE NA SPR 16 GM BTL SCH ×2 (08:32→08:48)
[2022-07-02] MEDS: DOCUSATE SODIUM 100 MG CAP PO SCH ×2 (08:32→20:24)
[2022-07-02 10:21] LABS: Hematocrit (blood only) 29.1 % (34.1-44.9); Hemoglobin 8.8 g/dl (12.0-16.0); Mean Corpuscular Hemoglobin 31.3 pg (25.0-34.0); Mean Corpuscular Hgb Conc 30.2 g/dL (32.0-36.0); Mean Corpuscular Volume 103.6 fL (80.0-100.0); Mean Platelet Volume 10.6 fL (9.4-12.3); Platelet Count 249 K/uL (130-400); RDW Coefficient of Variation 24.1 % (11.5-14.5); RDW Standard Deviation 90.6 fL (36.4-46.3); Red Blood Count 2.81 M/uL (3.93-5.22); White Blood Count 14.39 K/ul (4.8-10.8)
[2022-07-02 10:42] LABS: INR 3.5 (0.9-1.1); Prothrombin Time 34.8 Seconds (9.0-12.0)
[2022-07-02 10:48] LABS: BUN Creatinine Ratio 14.7 (10-20); Calcium 8.9 mg/dl (8.5-10.1); Est GFR (African American) 17.3 ml/min; Potassium 3.7 mmol/L (3.5-5.1)
--- NOTE | 2022-07-02 11:11 | Nephrology Progress Note ---
Date of Service July 02, 2022 Assessment & Plan Admission and Anticipated Discharge Date Admission Date: May 14, 2022 Subjective Subjective Assessment & Plan (1) End-stage renal disease (ESRD): Plan: for HD today w/ goal 2 L off BP low as usual. Albumin did not make any difference so did not use today Compared to last time i saw her 2 weeks ago she is better fluid mandujano. Lot less edema. Will try to do 4 days a week dialysis as allowed by scheduling. So will do tomorrow for 3 hrs and take 2 kilo off. Do 3 k bath given low K. Noted palliative med note--she wants to continue dialysis. Subjective Seen during dialysis. She is Somewhat somnolent today from the fentanyl patch. BP is low. no Symptoms though Review of Systems Review of Systems: All systems reviewed & are unremarkable except as noted in Subjective Physical Exam Constitutional: well developed and well nourished Eyes: EOM intact bilaterally B ENMT: Ears: no external ear abnormality Nose: no external nose abnormality Mouth: + dry oral mucous membranes Neck: no nuchal rigidity Respiratory: normal respiratory effort Auscultation: + diminished lung sounds Cardiovascular: Rate/Rhythm: regular rate and regular rhythm Extremities: + edema (1+) Gastrointestinal (Abdomen): Inspection/Auscultation: normal bowel sounds Percussion/Palpation: abdomen soft; abdomen nontender Musculoskeletal: Extremities: strength 5/5 throughout Skin: no rashes, warm and dry Results & Data ([facility]) Vital Signs (Past 12 Hours) Vital Signs Temp Pulse Pulse Resp BP BP Pulse Ox 07/02/22 10:30 80 66/40 L 07/02/22 10:00 87 79/51 L 07/02/22 09:27 36.8 C 86 07/02/22 07:40 36.6 C 80 19 99/62 L 99 O2 Del Method O2 Flow Rate 07/02/22 10:30 07/02/22 10:00 07/02/22 09:27 07/02/22 07:40 Nasal Cannula 2
[2022-07-02] MEDS: CEFEPIME 1,000 MG in SYRINGE 0 ML IV SCH (13:17)
[2022-07-02] MEDS: ACETAMINOPHEN 325 MG TAB PO PRN (13:21)
[2022-07-02] MEDS: ACETIC ACID 0.25% IRRIG SOLN 1000 ML PLCT IR SCH (14:31)
[2022-07-02] MEDS: COLLAGENASE OINT 30 GM TUBE EXT SCH (14:32)
--- NOTE | 2022-07-02 15:46 | Hospitalist Progress Note ---
Date of Service July 02, 2022 Assessment & Plan (1) Sacral osteomyelitis: Plan Sacral Wound Osteomyelitis Had Multiple debridement Had wound VAC placed but got dislodged Sacral Wound Grew: Enterococcus VRE on 05/27/2022 Stage IV sacral ulcer with likely underlying osteomyelitis S/P debridement of sacral ulcer with bone biopsy on 05/27/2022 and repeat debridement 06/10 Evaluated by surgery and ID Was on IV cefepime, daptomycin and oral fluconazole As per Prior hospitalists: Hospitalist discussed with ID, on 06/14. He suggested daptomycin for 3 more weeks. However, given the extent of her sacral wound; infection control is difficult. Continue aggressive wound care. Discussed with family at bedside; they do not want her to go to [facility]. Would prefer her to go to [facility]. We will continue aggressive wound care daily while inpatient. . Appreciate surgery recommendation. Appreciate Plastic surgery Input Patient not tolerating Envella bed Wound culture growing Pseudomonas On Daptomycin for Enterococcus facecium VRE ID reconsulted Given low prealbumin, not a good surgical candidate, wound has been difficult to heal Also started on cefepime 06/29/22 Continue wound care as per plastic surgery Adjust Pain meds as needed Prognosis is poor Continue current medications Headache CT head: negative resolved Adjustment disorder with depressed mood Appreciate psychiatrist input and recommendation Vitamin B12, folate and TSH are normal stable Anemia: Chronic anemia in the setting of ESRD and GI losses (reported but not observed) and phlebotomy Was reportedly getting ?EPO injections with HD per Patient - continue EPO per renal No signs of active bleeding Positive FOBT S/P PRBCs during HD Monitor CBC: ~ Hgb 8 New onset atrial fibrillation: On amiodarone 200mg once daily. Supratherapeutic INR INR 3.5 today monitor INR Hold Coumadin today Stage IV sacral ulcer Radiation necrosis of skin and subcutaneous: Management as above Acute hyponatremia: likely due to sepsis and decrease po intake Sodium level 136 Monitor End-stage renal disease (ESRD): Has been on HD for the past year, per patient Normal HD schedule MWF Continue hemodialysis as per Nephrology DM II: Continue insulin per protocol Hypothyroidism: TSH 22, FT4 <0.25 unclear if patient taking medication appropriately TSH normalized with restarting levothyroxine Thrombocytopenia: unclear chronicity likely consumption in sepsis, ESRD, chronic illness no signs of bleeding resolved DVT Px: Coumadin on hold Supratherapeutic INR Code Status: DNI/DNR Admission and Anticipated Discharge Date Admission Date: May 14, 2022 Subjective Patient is seen and examined at bedside Had HD earlier today Reports sacral wound pain No other complaints Discussed with patient's over the phone Patient denies any chest pain, dyspnea, dizziness Review of Systems Review of Systems: All systems reviewed & are unremarkable except as noted in Subjective Physical Exam Physical Exam: Physical Exam: Vitals signs as noted above General Appearance:Obese, ill appearing Head: normocephalic, Atraumatic Eyes: normal inspection, EOMI Neck: supple, Trachea midline Respiratory/Chest: Decreased breath sounds, CTA, No accessory muscle use Cardiovascular: S1, S2, No murmur Abdomen/GI:Soft, Non tender, +Colostomy, Bowel sounds present Back:significant sacral wound Extremities/Musculoskeletal:normal inspection, no edema Neurologic/Psych:AAOX3, grossly no focal neurological deficits Skin: normal color, warm, +Sacral wound, Wound Vac Results & Data Results & Data ([facility]) Vital Signs (Past 12 Hours) Vital Signs Temp Pulse Pulse Resp BP BP Pulse Ox 07/02/22 15:31 36.8 C 88 19 102/67 99 07/02/22 13:05 36.7 C 86 99/62 L 07/02/22 12:30 84 82/52 L 07/02/22 12:00 79 71/41 L 07/02/22 08:00 07/02/22 11:30 82 78/41 L 07/02/22 11:00 78 65/31 L 07/02/22 10:30 80 66/40 L 07/02/22 10:00 87 79/51 L 07/02/22 09:27 36.8 C 86 07/02/22 07:40 36.6 C 80 19 99/62 L 99 O2 Del Method O2 Flow Rate 07/02/22 15:31 Nasal Cannula 2 07/02/22 13:05 07/02/22 12:30 07/02/22 12:00 07/02/22 08:00 Nasal Cannula 2 07/02/22 11:30 07/02/22 11:00 07/02/22 10:30 07/02/22 10:00 07/02/22 09:27 07/02/22 07:40 Nasal Cannula 2 Laboratory Results Short CBC 07/02/22 Range/Units 09:31 WBC 14.39 H (4.8-10.8) K/ul Hgb 8.8 L (12.0-16.0) g/dl Hct 29.1 L (34.1-44.9) % Plt Count 249 (130-400) K/uL BMP 07/02/22 09:31 Sodium 136 Potassium 3.7 Chloride 102 Carbon Dioxide 26 BUN 45 H Creatinine 3.06 H D Glucose 227 H Calcium 8.9
[2022-07-02] MEDS: MEROPENEM 500 MG in SYRINGE 0 ML IV SCH (17:03)
[2022-07-02] MEDS: HYDROCODONE/ACETAMOPHEN 5/325MG TAB PO PRN (18:56)
[2022-07-02] MEDS: rOPINIRole HCL 0.25 MG TABLET PO SCH (20:24)
[2022-07-02] MEDS: LATANOPROST 0.005% OP SOLN 2.5 ML BTL OPB SCH (20:25)
[2022-07-02] MEDS: BRIMONIDINE TARTRATE 0.2% 5ML OPB SCH (20:25)
[2022-07-02] MEDS: GABAPENTIN 300 MG CAP PO SCH (20:26)
[2022-07-02] MEDS: LANTUS PER UNIT CHARGE SQ SCH (20:37)
[2022-07-03] MEDS: CHECK fentaNYL PATCH PLACEMENT SCH ×3 (00:10→16:02)
[2022-07-03 06:18] LABS: INR 2.9 (0.9-1.1); Prothrombin Time 29.1 Seconds (9.0-12.0)
[2022-07-03] MEDS ORDERED: SODIUM CHLORIDE 0.9% 1000ML 1,000 ML IV PRN ×2 (07:00→08:47)
[2022-07-03] MEDS: LEVOTHYROXINE SODIUM 150 MCG TABLET PO SCH (07:49)
[2022-07-03] MEDS: MIDODRINE HCL 10 MG TAB PO SCH (07:49)
[2022-07-03] MEDS: HYDROCODONE/ACETAMOPHEN 5/325MG TAB PO PRN ×2 (08:40→17:35)
[2022-07-03] MEDS ORDERED: MIDODRINE HCL 10 MG TAB PO ONE (08:48)
[2022-07-03] MEDS: INSULIN ASPART PER UNIT SC SCH ×4 (09:31→22:08)
[2022-07-03] MEDS: ALBUMIN 25% 12.5 GM/50 ML VIAL IV SCH ×3 (09:32→12:22)
[2022-07-03] MEDS ORDERED: ALBUMIN 25% 12.5 GM/50 ML VIAL IV SCH (10:00)
[2022-07-03] MEDS: NEPHROCAPS PO SCH ×2 (13:14→20:19)
[2022-07-03] MEDS: AMIODARONE 200 MG TAB PO SCH (13:14)
[2022-07-03] MEDS: DOCUSATE SODIUM 100 MG CAP PO SCH ×2 (13:15→20:21)
[2022-07-03] MEDS: FLUTICASONE PROPIONATE NA SPR 16 GM BTL SCH (13:15)
[2022-07-03] MEDS: COLLAGENASE OINT 30 GM TUBE EXT SCH (13:17)
--- NOTE | 2022-07-03 13:19 | Nephrology Progress Note ---
Date of Service July 03, 2022 Assessment & Plan (1) End-stage renal disease (ESRD): Plan: Had HD today w/ goal 3 L off > got 2.5 L w/ albumin and midodrine >her hypotension is best managed w/ more HD in my opinion > would reserve albumin, midodrine for optimizing BP for fluid removal; would assess pt for sx of low BP before treating >>>has also had AF /RVR earlier this admission w/ standing midodrine and would avoid its use with this frequency -next HD on 07/05 or as needs dictate Admission and Anticipated Discharge Date Admission Date: May 14, 2022 Subjective has a new sand bed to help w/ wound > very heavy/difficult to transport for HD; pt c/o ongoing mild leg pain BL and severe buttock pain; no sob; tolerating po Review of Systems Review of Systems: All systems reviewed & are unremarkable except as noted in Subjective Physical Exam Constitutional: well developed and well nourished; no acute distress applying makeup Eyes: EOM intact bilaterally ENMT: Ears: no external ear abnormality Nose: no external nose abnormality Mouth: + dry oral mucous membranes Neck: no nuchal rigidity Respiratory: normal respiratory effort Auscultation: + diminished lung sounds Cardiovascular: Rate/Rhythm: regular rate and regular rhythm Extremities: + edema (2+ but less taut) Gastrointestinal (Abdomen): Inspection/Auscultation: normal bowel sounds Percussion/Palpation: abdomen soft; abdomen nontender Musculoskeletal: Extremities: strength 5/5 throughout Skin: no rashes, warm and dry wound not examined Neurologic: rider, fluent speech, no tremor; generalized weakness Psychiatric: Orientation: oriented to person and oriented to place Speech: normal rate/rhythm/volume of speech Cognition: + recent memory not intact Results & Data ([facility]) Vital Signs (Past 12 Hours) Vital Signs Temp Pulse Pulse Resp BP BP Pulse Ox 07/03/22 12:20 36.5 C 91 H 88/44 L 07/03/22 12:00 78 78/40 L 07/03/22 11:30 86 80/45 L 07/03/22 11:00 86 75/47 L 07/03/22 10:30 89 83/39 L 07/03/22 10:00 88 74/44 L 07/03/22 09:30 87 96/51 L 07/03/22 09:14 36.5 C 90 07/03/22 08:00 07/03/22 07:15 36.5 C 86 20 97/62 L 99 O2 Del Method O2 Flow Rate 07/03/22 12:20 07/03/22 12:00 07/03/22 11:30 07/03/22 11:00 07/03/22 10:30 07/03/22 10:00 07/03/22 09:30 07/03/22 09:14 07/03/22 08:00 Nasal Cannula 2 07/03/22 07:15 Nasal Cannula 2 Laboratory Results 07/02/22 09:31 07/02/22 09:31
[2022-07-03] MEDS: MEROPENEM 500 MG in SYRINGE 0 ML IV SCH (16:02)
--- NOTE | 2022-07-03 16:11 | Hospitalist Progress Note ---
Date of Service July 03, 2022 Assessment & Plan (1) Sacral osteomyelitis: Plan Sacral Wound Osteomyelitis Had Multiple debridement Had wound VAC placed but got dislodged Sacral Wound Grew: Enterococcus VRE on 05/27/2022 Stage IV sacral ulcer with likely underlying osteomyelitis S/P debridement of sacral ulcer with bone biopsy on 05/27/2022 and repeat debridement 06/10 Evaluated by surgery and ID Was on IV cefepime, daptomycin and oral fluconazole As per Prior hospitalists: Hospitalist discussed with ID, on 06/14. He suggested daptomycin for 3 more weeks. However, given the extent of her sacral wound; infection control is difficult. Continue aggressive wound care. Discussed with family at bedside; they do not want her to go to [facility]. Would prefer her to go to [facility]. We will continue aggressive wound care daily while inpatient. . Appreciate surgery recommendation. Appreciate Plastic surgery Input Wound culture growing Pseudomonas,Prevotella On Daptomycin for Enterococcus facecium VRE ID reconsulted Given low prealbumin, not a good surgical candidate, wound has been difficult to heal Also started on cefepime 06/29/22>>Changed to Meropenem on 07/02/22 Poor Prognosis Continue wound care Seemed to be tolerating Envella bed Headache CT head: negative resolved Adjustment disorder with depressed mood Appreciate psychiatrist input and recommendation Vitamin B12, folate and TSH are normal stable Anemia: Chronic anemia in the setting of ESRD and GI losses (reported but not observed) and phlebotomy Was reportedly getting ?EPO injections with HD per Patient - continue EPO per renal No signs of active bleeding Positive FOBT S/P PRBCs during HD Monitor CBC: ~ Hgb 8 New onset atrial fibrillation: On amiodarone 200mg once daily. Supratherapeutic INR--Resolved INR 2.9 today monitor INR Hold Coumadin for now Plan to resume Coumadin tomorrow Stage IV sacral ulcer Radiation necrosis of skin and subcutaneous: Management as above Acute hyponatremia: likely due to sepsis and decrease po intake Sodium level 136 Monitor End-stage renal disease (ESRD): Has been on HD for the past year, per patient Normal HD schedule MWF Continue hemodialysis as per Nephrology DM II: Continue insulin per protocol Hypothyroidism: TSH 22, FT4 <0.25 unclear if patient taking medication appropriately TSH normalized with restarting levothyroxine Thrombocytopenia: unclear chronicity likely consumption in sepsis, ESRD, chronic illness no signs of bleeding resolved DVT Px: Coumadin on hold Therapeutic INR Code Status: DNI/DNR Admission and Anticipated Discharge Date Admission Date: May 14, 2022 Subjective Patient is seen and examined at bedside Wad having HD during my encounter Complains of buttock pain Patient denies any chest pain, dyspnea, dizziness No other complaints Review of Systems Review of Systems: All systems reviewed & are unremarkable except as noted in Subjective Physical Exam Physical Exam: Physical Exam: Vitals signs as noted above General Appearance:Obese, ill appearing Head: normocephalic, Atraumatic Eyes: normal inspection, EOMI Neck: supple, Trachea midline Respiratory/Chest: Decreased breath sounds, CTA, No accessory muscle use Cardiovascular: S1, S2, No murmur Abdomen/GI:Soft, Non tender, +Colostomy, Bowel sounds present Back:significant sacral wound Extremities/Musculoskeletal:normal inspection, no edema Neurologic/Psych:AAOX3, grossly no focal neurological deficits Skin: normal color, warm, +Sacral wound, Wound Vac Results & Data Results & Data ([facility]) Vital Signs (Past 12 Hours) Vital Signs Temp Pulse Pulse Resp BP BP Pulse Ox 07/03/22 12:20 36.5 C 91 H 88/44 L 07/03/22 12:00 78 78/40 L 07/03/22 11:30 86 80/45 L 07/03/22 11:00 86 75/47 L 07/03/22 10:30 89 83/39 L 07/03/22 10:00 88 74/44 L 07/03/22 09:30 87 96/51 L 07/03/22 09:14 36.5 C 90 07/03/22 08:00 07/03/22 07:15 36.5 C 86 20 97/62 L 99 O2 Del Method O2 Flow Rate 07/03/22 12:20 07/03/22 12:00 07/03/22 11:30 07/03/22 11:00 07/03/22 10:30 07/03/22 10:00 07/03/22 09:30 07/03/22 09:14 07/03/22 08:00 Nasal Cannula 2 07/03/22 07:15 Nasal Cannula 2
[2022-07-03] MEDS: ACETIC ACID 0.25% IRRIG SOLN 1000 ML PLCT IR SCH ×2 (17:40)
[2022-07-03] MEDS: rOPINIRole HCL 0.25 MG TABLET PO SCH (20:19)
[2022-07-03] MEDS: GABAPENTIN 300 MG CAP PO SCH (20:19)
[2022-07-03] MEDS: LATANOPROST 0.005% OP SOLN 2.5 ML BTL OPB SCH (20:20)
[2022-07-03] MEDS: BRIMONIDINE TARTRATE 0.2% 5ML OPB SCH (20:20)
[2022-07-03] MEDS: LANTUS PER UNIT CHARGE SQ SCH (22:08)
[2022-07-04] MEDS: CHECK fentaNYL PATCH PLACEMENT SCH ×4 (01:09→23:10)
[2022-07-04] MEDS: HYDROCODONE/ACETAMOPHEN 5/325MG TAB PO PRN ×3 (05:15→21:23)
[2022-07-04] MEDS: LEVOTHYROXINE SODIUM 150 MCG TABLET PO SCH (05:16)
[2022-07-04 07:05] LABS: Hematocrit (blood only) 26.3 % (34.1-44.9); Hemoglobin 7.8 g/dl (12.0-16.0); Mean Corpuscular Hemoglobin 31.3 pg (25.0-34.0); Mean Corpuscular Hgb Conc 29.7 g/dL (32.0-36.0); Mean Corpuscular Volume 105.6 fL (80.0-100.0); Mean Platelet Volume 10.1 fL (9.4-12.3); Platelet Count 201 K/uL (130-400); Red Blood Count 2.49 M/uL (3.93-5.22); White Blood Count 10.93 K/ul (4.8-10.8)
[2022-07-04 07:34] LABS: INR 2.2 (0.9-1.1); Prothrombin Time 22.5 Seconds (9.0-12.0)
[2022-07-04] MEDS: INSULIN ASPART PER UNIT SC SCH ×4 (09:21→21:16)
[2022-07-04] MEDS: ACETIC ACID 0.25% IRRIG SOLN 1000 ML PLCT IR SCH (09:23)
[2022-07-04] MEDS: COLLAGENASE OINT 30 GM TUBE EXT SCH (09:23)
[2022-07-04] MEDS: NEPHROCAPS PO SCH ×2 (09:24→21:14)
[2022-07-04] MEDS: AMIODARONE 200 MG TAB PO SCH (09:24)
[2022-07-04] MEDS: FLUTICASONE PROPIONATE NA SPR 16 GM BTL SCH (09:24)
[2022-07-04] MEDS: fentaNYL 12 MCG/HR TDSY TD SCH (09:28)
[2022-07-04] MEDS: DOCUSATE SODIUM 100 MG CAP PO SCH ×2 (09:28→21:15)
--- NOTE | 2022-07-04 14:52 | Hospitalist Progress Note ---
Date of Service July 04, 2022 Assessment & Plan (1) Sacral osteomyelitis: Plan: Sacral Wound Osteomyelitis Had Multiple debridement Had wound VAC placed but got dislodged Sacral Wound Grew: Enterococcus VRE on 05/27/2022 Stage IV sacral ulcer with likely underlying osteomyelitis S/P debridement of sacral ulcer with bone biopsy on 05/27/2022 and repeat debridement 06/10 Evaluated by surgery and ID Was on IV cefepime, daptomycin and oral fluconazole As per Prior hospitalists: Hospitalist discussed with ID, on 06/14. He suggested daptomycin for 3 more weeks. However, given the extent of her sacral wound; infection control is difficult. Continue aggressive wound care. Discussed with family at bedside; they do not want her to go to [facility]. Would prefer her to go to [facility]. We will continue aggressive wound care daily while inpatient. . Appreciate surgery recommendation. Appreciate Plastic surgery Input Wound culture growing Pseudomonas,Prevotella On Daptomycin for Enterococcus facecium VRE ID reconsulted Given low prealbumin, not a good surgical candidate, wound has been difficult to heal Also started on cefepime 06/29/22>>Changed to Meropenem on 07/02/22 Poor Prognosis Continue wound care Continue with Envella bed Continue current management Prevotella sensitivities pending Headache CT head: negative resolved Adjustment disorder with depressed mood Appreciate psychiatrist input and recommendation Vitamin B12, folate and TSH are normal stable Anemia: Chronic anemia in the setting of ESRD and GI losses (reported but not observed) and phlebotomy Was reportedly getting ?EPO injections with HD per Patient - continue EPO per renal No signs of active bleeding Positive FOBT S/P PRBCs during HD Monitor CBC: ~ Hgb 8 New onset atrial fibrillation: On amiodarone 200mg once daily. Supratherapeutic INR--Resolved INR 2.2 today monitor INR Resume Coumadin today Stage IV sacral ulcer Radiation necrosis of skin and subcutaneous: Management as above Acute hyponatremia: likely due to sepsis and decrease po intake Sodium level 136 Monitor End-stage renal disease (ESRD): Has been on HD for the past year, per patient Normal HD schedule MWF Continue hemodialysis as per Nephrology DM II: Continue insulin per protocol Hypothyroidism: TSH 22, FT4 <0.25 unclear if patient taking medication appropriately TSH normalized with restarting levothyroxine Thrombocytopenia: unclear chronicity likely consumption in sepsis, ESRD, chronic illness no signs of bleeding resolved DVT Px: Coumadin Code Status: DNI/DNR Admission and Anticipated Discharge Date Admission Date: May 14, 2022 Subjective Patient is seen and examined at bedside " I don't know how I feel" Lying comfortably on bed watching TV Buttock pain is controlled Denies any chest pain, dyspnea, dizziness Review of Systems Review of Systems: All systems reviewed & are unremarkable except as noted in Subjective Physical Exam Physical Exam: Physical Exam: Vitals signs as noted above General Appearance:Obese, ill appearing Head: normocephalic, Atraumatic Eyes: normal inspection, EOMI Neck: supple, Trachea midline Respiratory/Chest: Decreased breath sounds, CTA, No accessory muscle use Cardiovascular: S1, S2, No murmur Abdomen/GI:Soft, Non tender, +Colostomy, Bowel sounds present Back:significant sacral wound Extremities/Musculoskeletal:normal inspection, no edema Neurologic/Psych:AAOX3, grossly no focal neurological deficits Skin: normal color, warm, +Sacral wound Results & Data Results & Data ([facility]) Vital Signs (Past 12 Hours) Vital Signs Temp Pulse Resp BP Pulse Ox O2 Del Method O2 Flow Rate 07/04/22 08:24 36.4 C L 80 16 101/61 100 Nasal Cannula 2 Laboratory Results Short CBC 07/04/22 Range/Units 06:34 WBC 10.93 H (4.8-10.8) K/ul Hgb 7.8 L (12.0-16.0) g/dl Hct 26.3 L (34.1-44.9) % Plt Count 201 (130-400) K/uL
--- NOTE | 2022-07-04 14:56 | Electrocardiogram Report ---
Test Reason : Blood Pressure : / mmHG Vent. Rate : 088 BPM Atrial Rate : 088 BPM P-R Int : 218 ms QRS Dur : 110 ms QT Int : 408 ms P-R-T Axes : 069 -01 060 degrees QTc Int : 493 ms Sinus rhythm with 1st degree A-V block Low voltage QRS Incomplete left bundle block Abnormal ECG When compared with ECG of 24-MAY-2022 06:09, NE interval has increased Non-specific change in ST segment in Anterior leads QT has lengthened Confirmed by Sumit Marti ([id number]) on 07/04/2022 2:56:17 PM Referred By: REFERRED SELF Confirmed By:Sumit Marti
[2022-07-04] MEDS: diphenhydrAMINE Capsule 25 MG CAP PO PRN (15:06)
[2022-07-04] MEDS: WARFARIN SOD 1 MG TAB PO SCH (15:07)
[2022-07-04] MEDS: MEROPENEM 500 MG in SYRINGE 0 ML IV SCH (18:27)
[2022-07-04] MEDS: BRIMONIDINE TARTRATE 0.2% 5ML OPB SCH (21:14)
[2022-07-04] MEDS: rOPINIRole HCL 0.25 MG TABLET PO SCH (21:14)
[2022-07-04] MEDS: GABAPENTIN 300 MG CAP PO SCH (21:14)
[2022-07-04] MEDS: LATANOPROST 0.005% OP SOLN 2.5 ML BTL OPB SCH (21:14)
[2022-07-04] MEDS: LANTUS PER UNIT CHARGE SQ SCH (21:23)
[2022-07-05] MEDS: CHECK fentaNYL PATCH PLACEMENT SCH ×2 (07:35→18:44)
[2022-07-05] MEDS: FLUTICASONE PROPIONATE NA SPR 16 GM BTL SCH ×2 (07:37→07:38)
[2022-07-05] MEDS: AMIODARONE 200 MG TAB PO SCH (07:38)
[2022-07-05] MEDS: NEPHROCAPS PO SCH ×2 (07:38→20:12)
[2022-07-05 08:14] LABS: INR 2.4 (0.9-1.1); Prothrombin Time 24.3 Seconds (9.0-12.0)
[2022-07-05 08:18] LABS: BUN Creatinine Ratio 15.8 (10-20); Calcium 9.1 mg/dl (8.5-10.1); Creatinine Clr Calc Pharmacy 19.1 ml/min; Est GFR (Non-African American) 17.3 ml/min; Potassium 4.3 mmol/L (3.5-5.1)
[2022-07-05] MEDS ORDERED: EPOETIN ALFA 20,000 UNITS/ML VIAL IV ONE (08:23)
[2022-07-05] MEDS ORDERED: HEPARIN SOD (PORCINE) 1000 UNIT/ML IV ONE (08:23)
[2022-07-05] MEDS ORDERED: SODIUM CHLORIDE 0.9% 1000ML 1,000 ML IV PRN (08:23)
[2022-07-05] MEDS: INSULIN ASPART PER UNIT SC SCH ×4 (09:04→22:17)
[2022-07-05] MEDS: DOCUSATE SODIUM 100 MG CAP PO SCH ×2 (09:07→22:23)
[2022-07-05] MEDS: ACETIC ACID 0.25% IRRIG SOLN 1000 ML PLCT IR SCH ×3 (09:09→19:47)
[2022-07-05] MEDS: COLLAGENASE OINT 30 GM TUBE EXT SCH ×2 (09:09→09:19)
[2022-07-05] MEDS: HYDROCODONE/ACETAMOPHEN 5/325MG TAB PO PRN ×2 (09:59→17:59)
[2022-07-05] MEDS ORDERED: MIDODRINE HCL 10 MG TAB PO SCH (10:00)
[2022-07-05] MEDS ORDERED: IRON SUCROSE 100 MG in SYRINGE 0 ML IV SCH (10:00)
[2022-07-05] MEDS ORDERED: ALBUMIN 25% 12.5 GM/50 ML VIAL IV SCH ×2 (10:00→11:00)
--- NOTE | 2022-07-05 13:24 | XRay Report ---
XR chest 1V portable CLINICAL HISTORY: hemoptysis TECHNIQUE: Single frontal radiograph of the chest was obtained. Comparison: Comparison is made to chest radiograph 06/21/2022 FINDINGS: Lines and tubes are stable. Cardiomegaly is noted. Prominence and cephalization of the vasculature is seen. There is blunting of the bilateral costophrenic angles compatible with small pleural effusions . In addition, there is increased airspace opacity in the lower lungs which may represent atelectasis , pneumonia, layering effusion, and/or aspiration. IMPRESSION: 1. Cardiomegaly and pulmonary edema is similar in appearance to prior exam. 2. Small bilateral pleural effusions. Airspace opacity in the bilateral lower lungs is increased fro m prior exam and may represent layering effusion, atelectasis, pneumonia, and/or aspiration. ACT 112: Negative or not required by law. Electronically signed by: Eriberto Wiley M.D. 07/05/2022 1:23 PM
[2022-07-05] MEDS: HEPARIN SOD (PORCINE) 1000 UNIT/ML IV SCH ×3 (14:55→18:08)
--- NOTE | 2022-07-05 18:00 | Hospitalist Progress Note ---
Date of Service July 05, 2022 Assessment & Plan (1) Sacral osteomyelitis: Plan: Sacral Wound Osteomyelitis Had Multiple debridement Had wound VAC placed but got dislodged Sacral Wound Grew: Enterococcus VRE on 05/27/2022 Stage IV sacral ulcer with likely underlying osteomyelitis S/P debridement of sacral ulcer with bone biopsy on 05/27/2022 and repeat debridement 06/10 Evaluated by surgery and ID Was on IV cefepime, daptomycin and oral fluconazole As per Prior hospitalists: Hospitalist discussed with ID, on 06/14. He suggested daptomycin for 3 more weeks. However, given the extent of her sacral wound; infection control is difficult. Continue aggressive wound care. Discussed with family at bedside; they do not want her to go to [facility]. Would prefer her to go to [facility]. We will continue aggressive wound care daily while inpatient. . Appreciate surgery recommendation. Appreciate Plastic surgery Input Wound culture growing Pseudomonas,Prevotella On Daptomycin for Enterococcus facecium VRE ID reconsulted Given low prealbumin, not a good surgical candidate, wound has been difficult to heal Also started on cefepime 06/29/22>>Changed to Meropenem on 07/02/22 Poor Prognosis Continue wound care Intolerance to Envella bed Continue IV antibiotics Hemoptysis ? Pneumonia Continue IV antibiotics as above Hold Coumadin today Monitor INR, CBC Headache CT head: negative resolved Adjustment disorder with depressed mood Appreciate psychiatrist input and recommendation Vitamin B12, folate and TSH are normal stable Anemia: Chronic anemia in the setting of ESRD and GI losses (reported but not observed) and phlebotomy Was reportedly getting ?EPO injections with HD per Patient - continue EPO per renal No signs of active bleeding Positive FOBT S/P PRBCs during HD Monitor CBC: ~ Hgb 8 New onset atrial fibrillation: On amiodarone 200mg once daily. Supratherapeutic INR--Resolved INR 2.4 today monitor INR Resume Coumadin as able Stage IV sacral ulcer Radiation necrosis of skin and subcutaneous: Management as above Acute hyponatremia: likely due to sepsis and decrease po intake Sodium level 134 Monitor End-stage renal disease (ESRD): Has been on HD for the past year, per patient Normal HD schedule MWF Continue hemodialysis as per Nephrology DM II: Continue insulin per protocol Hypothyroidism: TSH 22, FT4 <0.25 unclear if patient taking medication appropriately TSH normalized with restarting levothyroxine Thrombocytopenia: unclear chronicity likely consumption in sepsis, ESRD, chronic illness no signs of bleeding resolved DVT Px: Coumadin on hold Re: Hemoptysis Code Status: DNI/DNR Admission and Anticipated Discharge Date Admission Date: May 14, 2022 Subjective Patient is seen and examined at bedside Reports intolerance to Envella bed Reports minimal hemoptysis overnight associated with cough Persistent buttock pain Denies any chest pain, dyspnea, dizziness Had HD today Review of Systems Review of Systems: All systems reviewed & are unremarkable except as noted in Subjective Physical Exam Physical Exam: Physical Exam: Vitals signs as noted above General Appearance:Obese, ill appearing Head: normocephalic, Atraumatic Eyes: normal inspection, EOMI Neck: supple, Trachea midline Respiratory/Chest: Decreased breath sounds, CTA, No accessory muscle use Cardiovascular: S1, S2, No murmur Abdomen/GI:Soft, Non tender, +Colostomy, Bowel sounds present Back:significant sacral wound Extremities/Musculoskeletal:normal inspection, no edema Neurologic/Psych:AAOX3, grossly no focal neurological deficits Skin: normal color, warm, +Sacral wound Results & Data Results & Data ([facility]) Vital Signs (Past 12 Hours) Vital Signs Temp Pulse Pulse Pulse Resp BP BP 07/05/22 17:00 94 H 85/42 L 07/05/22 16:30 77 90/47 L 07/05/22 16:00 93 H 96/48 L 07/05/22 15:30 93 H 85/49 L 07/05/22 15:00 96 H 97/51 L 07/05/22 14:30 95 H 88/50 L 07/05/22 14:00 92 H 102/60 07/05/22 13:51 92 H 109/58 L 07/05/22 13:45 36.7 C 91 H 07/05/22 08:00 07/05/22 08:28 36.7 C 92 H 16 103/65 Pulse Ox O2 Del Method O2 Flow Rate 07/05/22 17:00 07/05/22 16:30 07/05/22 16:00 07/05/22 15:30 07/05/22 15:00 07/05/22 14:30 07/05/22 14:00 07/05/22 13:51 07/05/22 13:45 07/05/22 08:00 Nasal Cannula 2 07/05/22 08:28 99 Nasal Cannula 2 Laboratory Results [facility] 07/05/22 07:25 Sodium 134 L Potassium 4.3 Chloride 101 Carbon Dioxide 26 BUN 43 H Creatinine 2.72 H Glucose 171 H Calcium 9.1
[2022-07-05] MEDS: MEROPENEM 500 MG in SYRINGE 0 ML IV SCH (18:43)
[2022-07-05] MEDS: GABAPENTIN 300 MG CAP PO SCH (20:11)
[2022-07-05] MEDS: rOPINIRole HCL 0.25 MG TABLET PO SCH (20:11)
[2022-07-05] MEDS: LATANOPROST 0.005% OP SOLN 2.5 ML BTL OPB SCH (20:12)
[2022-07-05] MEDS: BRIMONIDINE TARTRATE 0.2% 5ML OPB SCH (20:12)
--- NOTE | 2022-07-05 20:59 | Nephrology Progress Note ---
Date of Service July 05, 2022 Assessment & Plan (1) End-stage renal disease (ESRD): Plan: Had HD today w/ goal 3 L off > got this w/ albumin and midodrine >her hypotension is best managed w/ more HD in my opinion > would reserve albumin, midodrine for optimizing BP for fluid removal; would assess pt for sx of low BP before treating >>>has also had AF /RVR earlier this admission w/ standing midodrine and would avoid its use with this frequency -next HD on 07/06 > 4 days weekly to optimize fluid mgt/BP Admission and Anticipated Discharge Date Admission Date: May 14, 2022 Subjective no interval events. .still really dilikes bed; tells me she's coughing up blood > RN denies any report of this. Review of Systems Review of Systems: All systems reviewed & are unremarkable except as noted in Subjective Physical Exam Constitutional: well developed and well nourished; no acute distress Eyes: EOM intact bilaterally ENMT: Ears: no external ear abnormality Nose: no external nose abnormality Mouth: + dry oral mucous membranes Neck: no nuchal rigidity Respiratory: normal respiratory effort Auscultation: + diminished lung sounds Cardiovascular: Rate/Rhythm: regular rate and regular rhythm Extremities: + edema (2+ but less taut) Gastrointestinal (Abdomen): Inspection/Auscultation: abdomen normal to inspection (colostomy bag present) and normal bowel sounds Percussion/Palpation: abdomen soft; abdomen nontender Musculoskeletal: Extremities: + abnormal strength Skin: no rashes, warm and dry Psychiatric: Orientation: oriented to person and oriented to place Speech: normal rate/rhythm/volume of speech Cognition: + recent memory not intact Results & Data ([place]) Vital Signs (Past 12 Hours) Vital Signs Temp Pulse Pulse BP BP 07/05/22 18:00 92/47 L 07/05/22 17:35 37 C 92 H 99/27 L 07/05/22 17:00 94 H 85/42 L 07/05/22 16:30 77 90/47 L 07/05/22 16:00 93 H 96/48 L 07/05/22 15:30 93 H 85/49 L 07/05/22 15:00 96 H 97/51 L 07/05/22 14:30 95 H 88/50 L 07/05/22 14:00 92 H 102/60 07/05/22 13:51 92 H 109/58 L 07/05/22 13:45 36.7 C 91 H Laboratory Results 07/04/22 06:34 07/05/22 07:25
[2022-07-05] MEDS: LANTUS PER UNIT CHARGE SQ SCH (22:17)
[2022-07-06] MEDS: CHECK fentaNYL PATCH PLACEMENT SCH ×3 (00:16→15:05)
[2022-07-06] MEDS ORDERED: XOPENEX/ATROVENT 1.25mg/0.5MG NEB COMBO NEB STA (04:56)
[2022-07-06] MEDS ORDERED: IPRATROPIUM BROMIDE NEB SOLN 0.02% 2.5 ML VIAL INH STA (04:57)
[2022-07-06] MEDS ORDERED: NITROGLYCERIN SL 0.4 MG/TAB TAB SL STA (04:58)
[2022-07-06] MEDS ORDERED: LEVALBUTEROL 1.25MG/0.5ML NEB INH STA (04:58)
[2022-07-06] MEDS ORDERED: oxyCODONE HCL IR 5 MG TAB (IMMEDIATE RELEASE) PO STA (05:04)
[2022-07-06] MEDS ORDERED: LEVALBUTEROL HCL 1.25 MG/3 ML NEB ONE (05:06)
--- NOTE | 2022-07-06 05:10 | Communication Note ---
Date of Service: July 06, 2022
[2022-07-06 06:16] LABS: Basophils # (auto) 0.12 K/uL (0-0.2); Basophils % (auto) 1.2 %; Eosinophils # (auto) 0.23 K/uL (0-0.50); Eosinophils % (auto) 2.3 %; Hematocrit (blood only) 26.5 % (34.1-44.9); Immature Granulocytes # (auto) 0.06 K/uL (0.00-0.02); Immature Granulocytes % (auto) 0.6 %; Lymphocytes # (auto) 0.91 K/uL (1.2-3.4); Mean Corpuscular Hgb Conc 30.2 g/dL (32.0-36.0); Mean Corpuscular Volume 102.7 fL (80.0-100.0); Mean Platelet Volume 10.2 fL (9.4-12.3); Monocytes # (auto) 0.93 K/uL (0.24-0.82); Monocytes % (auto) 9.2 %; Neutrophils # (auto) 7.88 K/uL (1.4-6.5); Neutrophils % (auto) 77.7 %; Platelet Count 188 K/uL (130-400); RDW Coefficient of Variation 23.6 % (11.5-14.5); RDW Standard Deviation 88.4 fL (36.4-46.3); Red Blood Count 2.58 M/uL (3.93-5.22); White Blood Count 10.13 K/ul (4.8-10.8)
[2022-07-06 06:18] LABS: Base Excess ABG 2.4 mEq/L (-9-1.8); HCO3 ABG 27 mmol/L (19-24); Oxygen Saturation ABG 99.8 % (90-95); PCO2 ABG 42 mmHg (35-46); PO2 ABG 174 mmHg (80-95); pH ABG 7.42 (7.35-7.45)
[2022-07-06 06:41] LABS: Allen Test POS (Pos); Troponin I High Sensitivity 25.6 pg/ml (0-14)
[2022-07-06 06:50] LABS: Albumin Globulin Ratio 0.9 (0.9-2); BUN Creatinine Ratio 12.6 (10-20); Bilirubin,Total 0.9 mg/dl (0.2-1.0); Calcium 8.9 mg/dl (8.5-10.1); Creatinine Clr Calc Pharmacy 25.1 ml/min; Est GFR (African American) 27.8 ml/min; Globulin 3.4 gm/dl (2.5-4.0); Magnesium 1.7 mg/dl (1.7-2.4); Potassium 4.1 mmol/L (3.5-5.1); Total Protein 6.4 gm/dl (6.0-8.3)
[2022-07-06 06:52] LABS: INR 2.2 (0.9-1.1); Partial Thromboplastin Ratio 3.2; Prothrombin Time 22.1 Seconds (9.0-12.0)
[2022-07-06 06:59] LABS: Anisocytosis Present; Basophilic Stippling 1+; Polychromasia 1+; Target Cells 1+
[2022-07-06 07:10] LABS: Partial Thromboplastin Time 88.3 Seconds (21.0-31.0)
[2022-07-06] MEDS ORDERED: HEPARIN SOD (PORCINE) 1000 UNIT/ML IV ONE (07:41)
[2022-07-06] MEDS ORDERED: SODIUM CHLORIDE 0.9% 1000ML 1,000 ML IV PRN (07:41)
[2022-07-06] MEDS ORDERED: ALBUMIN 25% 12.5 GM/50 ML VIAL IV ONE ×2 (08:00→09:00)
[2022-07-06] MEDS ORDERED: IRON SUCROSE 100 MG in SYRINGE 0 ML IV ONE (08:00)
--- NOTE | 2022-07-06 08:40 | XRay Report ---
XR chest 1V portable HISTORY: Shortness of breath. COMPARISON: Chest 07/05/2022. FINDINGS: No pneumothorax. There are low lung volumes. A right jugular catheter terminates at the rig ht atrium. This remains unchanged. There is moderate pulmonary edema with bilateral pleural effusions and bibasilar densities. This is similar to the prior study. IMPRESSION: No significant change in the pulmonary edema, bilateral pleural effusions, and bibasilar densities. ACT 112: Negative or not required by law. Electronically signed by: Alexandro Anaya M.D. 07/06/2022 8:39 AM
[2022-07-06] MEDS ORDERED: EPOETIN ALFA 20,000 UNITS/ML VIAL IV SCH (09:00)
[2022-07-06] MEDS: INSULIN ASPART PER UNIT SC SCH ×4 (09:07→21:34)
[2022-07-06] MEDS: HYDROCODONE/ACETAMOPHEN 5/325MG TAB PO PRN ×3 (09:08→22:57)
[2022-07-06] MEDS: FLUTICASONE PROPIONATE NA SPR 16 GM BTL SCH (09:10)
[2022-07-06] MEDS: NEPHROCAPS PO SCH ×2 (09:10→20:31)
[2022-07-06] MEDS: DOCUSATE SODIUM 100 MG CAP PO SCH ×2 (09:10→20:31)
[2022-07-06] MEDS: MAGNESIUM SULFATE / D5W 1 GM/100 ML BAG IV SCH ×2 (09:18→11:17)
[2022-07-06] MEDS: HEPARIN SOD (PORCINE) 1000 UNIT/ML IV SCH ×2 (11:11→11:12)
--- NOTE | 2022-07-06 14:01 | Electrocardiogram Report ---
Test Reason : Blood Pressure : / mmHG Vent. Rate : 111 BPM Atrial Rate : 111 BPM P-R Int : 178 ms QRS Dur : 118 ms QT Int : 346 ms P-R-T Axes : 024 -17 158 degrees QTc Int : 470 ms Sinus tachycardia Possible Left atrial enlargement Left bundle branch block Abnormal ECG When compared with ECG of 03-JUL-2022 14:06, [place] interval has decreased Non-specific change in ST segment in Anterior leads Confirmed by Jesus Nunez ([id number]) on 07/06/2022 2:00:56 PM Referred By: REFERRED SELF Confirmed By:Jesus Nunez
[2022-07-06] MEDS: ACETIC ACID 0.25% IRRIG SOLN 1000 ML PLCT IR SCH (15:00)
--- NOTE | 2022-07-06 15:36 | Hospitalist Progress Note ---
Date of Service July 06, 2022 Assessment & Plan (1) Sacral osteomyelitis: Plan: Sacral Wound Osteomyelitis Had Multiple debridement Had wound VAC placed but got dislodged Sacral Wound Grew: Enterococcus VRE on 05/27/2022 Stage IV sacral ulcer with likely underlying osteomyelitis S/P debridement of sacral ulcer with bone biopsy on 05/27/2022 and repeat debridement 06/10 Evaluated by surgery and ID Was on IV cefepime, daptomycin and oral fluconazole As per Prior hospitalists: Hospitalist discussed with ID, on 06/14. He suggested daptomycin for 3 more weeks. However, given the extent of her sacral wound; infection control is difficult. Continue aggressive wound care. Discussed with family at bedside; they do not want her to go to [facility]. Would prefer her to go to [facility]. We will continue aggressive wound care daily while inpatient. . Appreciate surgery recommendation. Appreciate Plastic surgery Input Wound culture growing Pseudomonas,Prevotella On Daptomycin for Enterococcus facecium VRE ID reconsulted Given low prealbumin; not a good surgical candidate, wound has been difficult to heal Also started on cefepime 06/29/22>>Changed to Meropenem on 07/02/22 Poor Prognosis Continue wound care Intolerance to Envella bed--discontinued Continue IV antibiotics Sensitivities for Prevotella pending Continue current management Hemoptysis ? Pneumonia Continue IV antibiotics as above Hold Coumadin today as well Monitor INR, CBC No hemoptysis today Headache CT head: negative resolved Adjustment disorder with depressed mood Appreciate psychiatrist input and recommendation Vitamin B12, folate and TSH are normal stable Anemia: Chronic anemia in the setting of ESRD and GI losses (reported but not observed) and phlebotomy Was reportedly getting ?EPO injections with HD per Patient - continue EPO per renal No signs of active bleeding Positive FOBT S/P PRBCs during HD Monitor CBC: ~ Hgb 8 New onset atrial fibrillation: On amiodarone 200mg once daily. Supratherapeutic INR--Resolved INR 2.2 today monitor INR Resume Coumadin as able Stage IV sacral ulcer Radiation necrosis of skin and subcutaneous: Management as above Acute hyponatremia: likely due to sepsis and decrease po intake Sodium level 132 Monitor End-stage renal disease (ESRD): Has been on HD for the past year, per patient Normal HD schedule MWF Continue hemodialysis as per Nephrology Had HD today DM II: Continue insulin per protocol Hypothyroidism: TSH 22, FT4 <0.25 unclear if patient taking medication appropriately TSH normalized with restarting levothyroxine Thrombocytopenia: unclear chronicity likely consumption in sepsis, ESRD, chronic illness no signs of bleeding resolved DVT Px: Coumadin on hold INR therapeutic Code Status: DNI/DNR Admission and Anticipated Discharge Date Admission Date: May 14, 2022 Subjective Patient is seen and examined at bedside States feeling better today Having HD during my encounter Reports having a panic attack overnight No recurrence of hemoptysis as per patient Persistent buttock pain Denies any chest pain, dyspnea, dizziness Tried to reach family, no answer Review of Systems Review of Systems: All systems reviewed & are unremarkable except as noted in Subjective Physical Exam Physical Exam: Physical Exam: Vitals signs as noted above General Appearance:Obese, ill appearing Head: normocephalic, Atraumatic Eyes: normal inspection, EOMI Neck: supple, Trachea midline Respiratory/Chest: Decreased breath sounds, CTA, No accessory muscle use Cardiovascular: S1, S2, No murmur Abdomen/GI:Soft, Non tender, +Colostomy, Bowel sounds present Back:significant sacral wound Extremities/Musculoskeletal:normal inspection, no edema Neurologic/Psych:AAOX3, grossly no focal neurological deficits Skin: normal color, warm, +Sacral wound Results & Data Results & Data ([facility]) Vital Signs (Past 12 Hours) Vital Signs Temp Pulse Pulse Pulse Resp BP BP 07/06/22 13:45 36.5 C 89 89/44 L 07/06/22 13:30 89 74/41 L 07/06/22 13:00 87 73/48 L 07/06/22 12:30 89 75/43 L 07/06/22 12:00 88 78/34 L 07/06/22 11:30 92 H 76/33 L 07/06/22 11:00 86 72/28 L 07/06/22 10:30 100 H 80/40 L 07/06/22 10:00 36.5 C 100 H 07/06/22 10:05 07/06/22 07:17 36.6 C 103 H 16 89/53 L 07/06/22 05:12 18 07/06/22 04:19 36.8 C 112 H 18 94/62 L Pulse Ox O2 Del Method O2 Flow Rate 07/06/22 13:45 07/06/22 13:30 07/06/22 13:00 07/06/22 12:30 07/06/22 12:00 07/06/22 11:30 07/06/22 11:00 07/06/22 10:30 07/06/22 10:00 07/06/22 10:05 Nasal Cannula 2 07/06/22 07:17 100 07/06/22 05:12 94 Room Air, Nasal Cannula 2 07/06/22 04:19 97 Nasal Cannula 4 Laboratory Results Short CBC 07/06/22 Range/Units 06:06 WBC 10.13 (4.8-10.8) K/ul Hgb 8.0 L (12.0-16.0) g/dl Hct 26.5 L (34.1-44.9) % Plt Count 188 (130-400) K/uL BMP 07/06/22 06:06 Sodium 132 L Potassium 4.1 Chloride 99 Carbon Dioxide 25 BUN 26 H Creatinine 2.07 H D Glucose 269 H Calcium 8.9 Liver Function 07/06/22 Range/Units 06:06 Total Bilirubin 0.9 (0.2-1.0) mg/dl AST 42 H (13-39) U/L ALT 18 (7-52) U/L Alkaline Phosphatase 466 H (34-104) U/L Albumin 3.0 L (3.4-5.0) gm/dl
--- NOTE | 2022-07-06 15:42 | Communication Note ---
Date of Service: July 06, 2022 Tried to reach patient's yesterday and today as well. Called both numbers. No answer when called.
[2022-07-06] MEDS: MEROPENEM 500 MG in SYRINGE 0 ML IV SCH (17:22)
--- NOTE | 2022-07-06 18:55 | Dialysis Progress Note ---
Date of Service July 06, 2022 Assessment & Plan (1) End-stage renal disease (ESRD): Plan: Had HD today w/ goal 3 L off > got this again w/ albumin and midodrine > 6L off past 2 days >her hypotension is best managed w/ more HD in my opinion > would reserve alb umin, midodrine for optimizing BP for fluid removal; would assess pt for sx of low BP before treating >>>has also had AF /RVR earlier this admission w/ standing midodrine and would avoid its use with this frequency -next HD on 07/07 > 4 days weekly to optimize fluid mgt/BP Admission and Anticipated Discharge Date Admission Date: May 14, 2022 Subjective seen on HD at about 11 am; no c/o further hemoptysis or sob. wanting to move/dangle her legs. chatty/interactive/ MS and activity baseline even w/ sbp reading 70 Review of Systems Review of Systems: All systems reviewed & are unremarkable except as noted in Subjective Physical Exam Constitutional: well developed and well nourished; no acute distress Eyes: EOM intact bilaterally ENMT: Ears: no external ear abnormality Nose: no external nose abnormality Mouth: + dry oral mucous membranes Neck: no nuchal rigidity Respiratory: normal respiratory effort Auscultation: + diminished lung sounds Cardiovascular: Rate/Rhythm: regular rate and regular rhythm Extremities: + edema (2+ but notably less taut) Gastrointestinal (Abdomen): Inspection/Auscultation: abdomen normal to inspection (colostomy bag present) and normal bowel sounds Percussion/Palpation: abdomen soft; abdomen nontender Musculoskeletal: Extremities: strength 5/5 throughout and + abnormal strength Skin: no rashes, warm and dry Psychiatric: Orientation: oriented to person and oriented to place Speech: normal rate/rhythm/volume of speech Cognition: + recent memory not intact Results & Data ([facility]) Vital Signs (Past 12 Hours) Vital Signs Temp Pulse Pulse Pulse Resp BP BP 07/06/22 15:58 36.7 C 100 H 16 99/59 L 07/06/22 13:45 36.5 C 89 89/44 L 07/06/22 13:30 89 74/41 L 07/06/22 13:00 87 73/48 L 07/06/22 12:30 89 75/43 L 07/06/22 12:00 88 78/34 L 07/06/22 11:30 92 H 76/33 L 07/06/22 11:00 86 72/28 L 07/06/22 10:30 100 H 80/40 L 07/06/22 10:00 36.5 C 100 H 07/06/22 10:05 07/06/22 07:17 36.6 C 103 H 16 89/53 L Pulse Ox O2 Del Method O2 Flow Rate 07/06/22 15:58 100 Room Air 07/06/22 13:45 07/06/22 13:30 07/06/22 13:00 07/06/22 12:30 07/06/22 12:00 07/06/22 11:30 07/06/22 11:00 07/06/22 10:30 07/06/22 10:00 07/06/22 10:05 Nasal Cannula 2 07/06/22 07:17 100 Laboratory Results 07/06/22 06:06 07/06/22 06:06
[2022-07-06] MEDS: LATANOPROST 0.005% OP SOLN 2.5 ML BTL OPB SCH (20:18)
[2022-07-06] MEDS: BRIMONIDINE TARTRATE 0.2% 5ML OPB SCH (20:19)
[2022-07-06] MEDS: GABAPENTIN 300 MG CAP PO SCH (20:31)
[2022-07-06] MEDS: rOPINIRole HCL 0.25 MG TABLET PO SCH (20:31)
[2022-07-06] MEDS: LANTUS PER UNIT CHARGE SQ SCH (21:34)
[2022-07-07] MEDS: CHECK fentaNYL PATCH PLACEMENT SCH ×3 (00:34→17:49)
[2022-07-07] MEDS: HYDROCODONE/ACETAMOPHEN 5/325MG TAB PO PRN ×3 (06:22→22:39)
[2022-07-07] MEDS ORDERED: SODIUM CHLORIDE 0.9% 1000ML 1,000 ML IV PRN (06:49)
[2022-07-07] MEDS ORDERED: MIDODRINE HCL 10 MG TAB PO SCH ×2 (07:15→12:30)
[2022-07-07] MEDS ORDERED: IRON SUCROSE 100 MG in SYRINGE 0 ML IV SCH (07:30)
[2022-07-07] MEDS ORDERED: ALBUMIN 25% 12.5 GM/50 ML VIAL IV SCH ×2 (07:30→09:30)
[2022-07-07] MEDS ORDERED: HEPARIN SOD (PORCINE) 1000 UNIT/ML IV SCH (07:30)
[2022-07-07] MEDS ORDERED: EPOETIN ALFA 20,000 UNITS/ML VIAL IV SCH (07:30)
[2022-07-07] MEDS: NEPHROCAPS PO SCH ×2 (08:47→20:59)
[2022-07-07] MEDS: FLUTICASONE PROPIONATE NA SPR 16 GM BTL SCH (08:49)
[2022-07-07] MEDS: fentaNYL 12 MCG/HR TDSY TD SCH (08:58)
[2022-07-07] MEDS: DOCUSATE SODIUM 100 MG CAP PO SCH ×2 (08:59→21:14)
[2022-07-07] MEDS: INSULIN ASPART PER UNIT SC SCH ×4 (08:59→21:14)
[2022-07-07] MEDS ORDERED: Nursing to Pharmacy Communication SCH (09:45)
[2022-07-07] MEDS: ACETIC ACID 0.25% IRRIG SOLN 1000 ML PLCT IR SCH (11:54)
--- NOTE | 2022-07-07 13:02 | Surgery Progress Note ---
Date of Service July 07, 2022 Assessment & Plan (1) Sacral osteomyelitis: (2) Ulcer of sacral region, stage 4: Plan Worsening of Stage 4 sacral ulcer, right ischial ulcer. Case was discussed with Mali Szymanski, who has attempted to place wound vac in the past. Wound vac would not hold suction due to large size, minimal surface area to place dressings and level of moisture. Also, low air loss mattress patient is on is next best option to Envella, which she did not tolerate. Patient remains to be a non-surgical candidate due to very poor nutritional status, multiple comorbidities. Case was discussed with Dr. Baldwin, who also feels surgical intervention is not an option at this time. He will attempt to reach out to family. We again reviewed with the patient that while this wound may have been initiated by radiation, pressure is causing it to worsen. She must be off loading (turned side to side) to in order to prevent wound from further deteriorating. This cannot be accomplished with alternating air/low air loss mattress alone. Also discussed case with Dr. Wayne. Admission and Anticipated Discharge Date Admission Date: May 14, 2022 Supervising Physician Co-Signing Physician Notes I personally saw and examined this patient with Gisela Maharaj PA-C. I personally discussed case with Dr. Wayne, Dr. Baldwin, Mali Szymanski. Wound continues to further necrose, including base of wound and periphery. Sacrum completely exposed, sutures visible at wound base. Some granulation noted. Odor has improved. Prealbumin 3, Hgb 8. Discussed with patient the importance of offloading (turning fully side to side to relieve pressure on wound). The wound continues to extend due to lack of offloading, poor protein intake, and further debridement is not going to be of benefit. Goals at this point should be to prevent further extension of the wound or infection. Continue acetic acid for another 2 days, then switch to saline wet to damp dressings. Sushant Michele is being seen today in follow-up of a large sacral ulcer. Since she was last seen, she has met with nutrition and has added some protein supplements. She was ordered an Envella bed, but patient did not tolerate the bed due to discomfort of positioning and has been switched back to low air mattress. She do es complain of some occasional discomfort in the sacral region. Currently on day 8 of damp to dry dressings using acetic acid. On Meropenem for pseudomonal wound infection. Review of Systems Constitutional: as per Subjective / HPI Integumentary: as per Subjective / HPI Physical Exam Physical Exam: Stage IV sacral ulceration, very large, measurements not obtained but appears larger than last seen. Wound periphery and portion of wound base, shows tissue necrosis consistent with full-thickness tissue loss.There are new, visible sutures at the central base of the wound. Some sharp (scissory and forceps) debridement of fully necrotic tissue skin and subQ performed (<20 cm2) but causes focal areas of pain for patient on exam today so unable to perform debridement of all necrotic tissues. Results & Data ([facility]) Vital Signs (Past 12 Hours) Vital Signs Temp Pulse Resp BP Pulse Ox O2 Del Method O2 Flow Rate 07/07/22 11:30 Nasal Cannula 2 07/07/22 07:50 37.0 C 90 16 89/53 L 100 Room Air PG Care Time/CCT Total # of Minutes Spent Total Time Spent with Patient: Total time spent is greater than 50% in coordination of care (as documented) at patient's floor/unit and/or counseling patient: Coding Level of Care Code 59328 Subseq Hosp Care Lvl 2 Diagnoses Sacral osteomyelitis M46.28 Ulcer of sacral region, stage 4 L98.429
[2022-07-07 13:28] LABS: Hematocrit (blood only) 27.7 % (34.1-44.9); Hemoglobin 8.1 g/dl (12.0-16.0); Mean Corpuscular Hemoglobin 30.7 pg (25.0-34.0); Mean Corpuscular Hgb Conc 29.2 g/dL (32.0-36.0); Mean Corpuscular Volume 104.9 fL (80.0-100.0); Mean Platelet Volume 10.4 fL (9.4-12.3); Platelet Count 206 K/uL (130-400); RDW Coefficient of Variation 22.9 % (11.5-14.5); RDW Standard Deviation 88.2 fL (36.4-46.3); Red Blood Count 2.64 M/uL (3.93-5.22); White Blood Count 10.63 K/ul (4.8-10.8)
[2022-07-07 13:40] LABS: INR 1.6 (0.9-1.1); Prothrombin Time 16.7 Seconds (9.0-12.0)
--- NOTE | 2022-07-07 13:48 | Hospitalist Progress Note ---
Date of Service July 07, 2022 Assessment & Plan (1) Sacral osteomyelitis: Plan: Sacral Wound Osteomyelitis Had Multiple debridement Had wound VAC placed but got dislodged Sacral Wound Grew: Enterococcus VRE on 05/27/2022 Stage IV sacral ulcer with likely underlying osteomyelitis S/P debridement of sacral ulcer with bone biopsy on 05/27/2022 and repeat debridement 06/10 Evaluated by surgery and ID Was on IV cefepime, daptomycin and oral fluconazole Hospitalist discussed with ID, on 06/14. On Daptomycin for Enterococcus facecium VRE - ID suggested daptomycin for 3 more weeks. However, given the extent of her sacral wound; infection control is difficult. Continue aggressive wound care. Discussed with family at bedside; they do not want her to go to [facility]. Would prefer her to go to [facility]. We will continue aggressive wound care daily while inpatient. . Appreciate surgery recommendation. Daptomycin course finished Plastic surgery also consulted - appreciate their Input Wound culture growing Pseudomonas,Prevotella ID re-consulted Given low prealbumin; not a good surgical candidate, wound has been difficult to heal Also started on cefepime 06/29/22>>Changed to Meropenem on 07/02/22 Poor Prognosis Continue wound care Intolerance to Envella bed--discontinued Continue IV antibiotics Continue current management 07/07 - discussed again with Dr. Leon, plastic surgery today. Unfortunately wound is not improving, we are taking measures to prevent from worsening however not being successful. Acetic acid dressings day 8 out of 10 ? Hemoptysis - resolved ? Pneumonia Continue IV antibiotics as above resume Coumadin Monitor INR, CBC No hemoptysis today Headache CT head: negative resolved Adjustment disorder with depressed mood Appreciate psychiatrist input and recommendation Vitamin B12, folate and TSH are normal stable Anemia: Chronic anemia in the setting of ESRD and GI losses (reported but not observed) and phlebotomy Was reportedly getting ?EPO injections with HD per Patient - continue EPO per renal No signs of active bleeding Positive FOBT S/P PRBCs during HD Monitor CBC: ~ Hgb 8 New onset atrial fibrillation: On amiodarone 200mg once daily. Supratherapeutic INR--Resolved INR 1.6 today monitor INR Resume Coumadin Stage IV sacral ulcer Radiation necrosis of skin and subcutaneous: Management as above Acute hyponatremia: likely due to sepsis and decrease po intake Sodium level 132 Monitor End-stage renal disease (ESRD): Has been on HD for the past year, per patient Normal HD schedule MWF Continue hemodialysis as per Nephrology Had HD today DM II: Continue insulin per protocol Hypothyroidism: TSH 22, FT4 <0.25 unclear if patient taking medication appropriately TSH normalized with restarting levothyroxine Thrombocytopenia: unclear chronicity likely consumption in sepsis, ESRD, chronic illness no signs of bleeding resolved DVT Px: Coumadin Code Status: DNI/DNR Admission and Anticipated Discharge Date Admission Date: May 14, 2022 Subjective Follow-up for sacral osteomyelitis, ESRD, etc. Pt is resting, laying in bed , in NAD Patient seen with plastic surgeon, Dr. Leon at the bedside today Pt did not tolerate Envella bed and was switched again Dressings changed to use acetic acid - day 06/02, also pt currently on meropenem Pain seems improved (seen by Dr Mcnulty) No fever, chills, shortness of breath, chest pain, dizziness, palpitations, nausea vomiting Plan for HD today Review of Systems Review of Systems: All systems reviewed & are unremarkable except as noted in Subjective Physical Exam Physical Exam: General Appearance:Obese F, chronically ill appearing Head: normocephalic, Atraumatic Eyes: normal inspection, EOMI Neck: supple Respiratory/Chest: Decreased breath sounds, CTA, No accessory muscle use Cardiovascular: S1, S2, No murmur Abdomen/GI:Soft, Non tender, +Colostomy, Bowel sounds present Back:significant sacral wound (see image in EMR) Extremities/Musculoskeletal:normal inspection, + trace LE edema Neurologic/Psych:AAOX3, grossly no focal neurological deficits Skin: normal color, warm, +Sacral wound Results & Data Results & Data ([facility]) Vital Signs (Past 12 Hours) Vital Signs Temp Pulse Resp BP Pulse Ox O2 Del Method O2 Flow Rate 07/07/22 11:30 Nasal Cannula 2 07/07/22 07:50 37.0 C 90 16 89/53 L 100 Room Air Laboratory Results 07/07/22 07/07/22 07/07/22 Range/Units 13:14 13:14 13:14 WBC 10.63 (4.8-10.8) K/ul RBC 2.64 L (3.93-5.22) M/uL Hgb 8.1 L (12.0-16.0) g/dl Hct 27.7 L (34.1-44.9) % MCV 104.9 H (80.0-100.0) fL MCH 30.7 (25.0-34.0) pg MCHC 29.2 L (32.0-36.0) g/dL RDW Std Deviation 88.2 H (36.4-46.3) fL RDW Coeff of Josh 22.9 H (11.5-14.5) % Plt Count 206 (130-400) K/uL MPV 10.4 (9.4-12.3) fL PT 16.7 H (9.0-12.0) Seconds INR 1.6 H (0.9-1.1) Sodium Pending Potassium Pending Chloride Pending Carbon Dioxide Pending Anion Gap Pending BUN Pending Creatinine Pending Est Cr Clr Drug Dosing Pending Est GFR ( Amer) Pending Est GFR (Non-Af Amer) Pending BUN/Creatinine Ratio Pending Glucose Pending POC Glucose (70-99) mg/dl Calcium Pending 07/07/22 07/07/22 07/06/22 Range/Units 11:45 08:04 20:39 WBC (4.8-10.8) K/ul RBC (3.93-5.22) M/uL Hgb (12.0-16.0) g/dl Hct (34.1-44.9) % MCV (80.0-100.0) fL MCH (25.0-34.0) pg MCHC (32.0-36.0) g/dL RDW Std Deviation (36.4-46.3) fL RDW Coeff of Josh (11.5-14.5) % Plt Count (130-400) K/uL MPV (9.4-12.3) fL PT (9.0-12.0) Seconds INR (0.9-1.1) Sodium Potassium Chloride Carbon Dioxide Anion Gap BUN Creatinine Est Cr Clr Drug Dosing Est GFR ( Amer) Est GFR (Non-Af Amer) BUN/Creatinine Ratio Glucose POC Glucose 144 H 162 H 199 H (70-99) mg/dl Calcium 07/06/22 07/06/22 Range/Units 17:06 13:50 WBC (4.8-10.8) K/ul RBC (3.93-5.22) M/uL Hgb (12.0-16.0) g/dl Hct (34.1-44.9) % MCV (80.0-100.0) fL MCH (25.0-34.0) pg MCHC (32.0-36.0) g/dL RDW Std Deviation (36.4-46.3) fL RDW Coeff of Josh (11.5-14.5) % Plt Count (130-400) K/uL MPV (9.4-12.3) fL PT (9.0-12.0) Seconds INR (0.9-1.1) Sodium Potassium Chloride Carbon Dioxide Anion Gap BUN Creatinine Est Cr Clr Drug Dosing Est GFR ( Amer) Est GFR (Non-Af Amer) BUN/Creatinine Ratio Glucose POC Glucose 223 H 143 H (70-99) mg/dl Calcium Medications Administered Current Inpatient Medications Hydrocodone Bitart/Acetaminophen (Hydrocodone/Acetamophen 5/325mg Tab) 1 tab PO Q6H PRN PRN Reason: Pain Stop: 07/16/22 17:11 Last Admin: 07/07/22 06:22 Dose: 1 tab Acetic Acid (Acetic Acid 0.25% Irrig Soln 1000 Ml Plct) 1 appln IR DAILY [facility] Stop: 07/30/22 08:59 Last Admin: 07/07/22 11:54 Dose: 1 appln Brimonidine Tartrate (Brimonidine Tartrate 0.2% 5ml) 1 drops OPB HS [facility] Stop: 07/30/22 23:39 Last Admin: 07/06/22 20:19 Dose: 1 drops Diphenhydramine HCl (Diphenhydramine Capsule 25 Mg Cap) 25 mg PO BID PRN PRN Reason: Allergy Symptoms Stop: 07/09/22 20:12 Last Admin: 07/04/22 15:06 Dose: 25 mg Docusate Sodium (Docusate Sodium 100 Mg Cap) 100 mg PO BID [facility] Stop: 07/31/22 14:44 Last Admin: 07/07/22 08:59 Dose: 100 mg Epoetin Felipe (Epoetin Felipe 20,000 Units/Ml Vial) 20,000 units IV TODAY@0730 [facility] Stop: 07/07/22 18:00 Fentanyl (Fentanyl 12 Mcg/Hr Tdsy) 12 mcg TD Q3D@0900 [facility] Stop: 07/15/22 14:59 Last Admin: 07/07/22 08:58 Dose: 12 mcg Fluticasone Propionate (Fluticasone Propionate Na Spr 16 Gm Btl) 2 sprays NA DAILY [facility] Stop: 07/12/22 22:24 Last Admin: 07/07/22 08:49 Dose: 2 sprays Gabapentin (Gabapentin 300 Mg Cap) 300 mg PO HS [facility] Stop: 07/22/22 20:59 Last Admin: 07/06/22 20:31 Dose: 300 mg Heparin Sodium (Porcine) (Heparin Sod (Porcine) 1000 Unit/Ml) 1,000 units IV TODAY@0730 [facility] Stop: 07/07/22 18:00 Last Admin: 07/07/22 13:40 Dose: Not Given Heparin Sodium (Porcine) (Heparin Sod (Porcine) 1000 Unit/Ml) 400 units IV Q1H [facility] Stop: 07/07/22 15:01 Promethazine HCl 12.5 mg/ (Sodium Chloride) 50.5 mls @ 202 mls/hr IV Q6H PRN PRN Reason: Nausea And Vomiting Stop: 07/31/22 18:15 Meropenem 500 mg/ Syringe 10 mls @ 2 mls/min IV Q24H [facility]; Protocol Stop: 07/09/22 16:59 Last Admin: 07/06/22 17:22 Dose: 2 mls/min Iron Sucrose 100 mg/ Syringe 5 mls @ 1 mls/min IV TODAY@0730 [facility] Stop: 07/07/22 18:00 Albumin Human (Albumin 25%) 12.5 gm in 50 mls @ 50 mls/hr IV TODAY@0730 [facility] Stop: 07/07/22 18:00 Last Admin: 07/07/22 13:20 Dose: 50 mls/hr Albumin Human (Albumin 25%) 12.5 gm in 50 mls @ 50 mls/hr IV TODAY@0930 [facility] Stop: 07/07/22 18:00 Insulin Aspart (Insulin Aspart Per Unit) 0 units SC [facility]; Protocol Stop: 07/16/22 11:29 Last Admin: 07/07/22 12:49 Dose: 6 units Insulin Glargine (Lantus Per Unit Charge) 14 units SQ [facility]; Protocol Stop: 07/17/22 20:59 Last Admin: 07/06/22 21:34 Dose: 14 units Latanoprost (Latanoprost 0.005% Op Soln 2.5 Ml Btl) 1 drops OPB HS [facility] Stop: 07/17/22 21:04 Last Admin: 07/06/22 20:18 Dose: 1 drops Lorazepam (Lorazepam 0.5 Mg Tab) 0.5 mg PO TID PRN PRN Reason: Anxiety Stop: 08/05/22 05:54 Menthol (Cough Drop (Sugar Free) Norman 24 Norman/1 Box) 1 norman BUCCAL Q2H PRN PRN Reason: Sore Throat Stop: 07/10/22 17:08 Last Admin: 06/11/22 23:23 Dose: 1 norman Midodrine (Midodrine Hcl 10 Mg Tab) 10 mg PO TODAY@1230 [facility] Stop: 07/07/22 18:00 Last Admin: 07/07/22 13:00 Dose: 10 mg Miscellaneous (Fentanyl Patch Remove & Waste) 1 each N/A Q3D@0859 [facility] Stop: 07/31/22 14:58 Last Admin: 07/07/22 08:48 Dose: 1 each Miscellaneous (Check Fentanyl Patch Placement) 1 each N/A QS [facility] Stop: 07/31/22 15:59 Last Admin: 07/07/22 08:47 Dose: 1 each Nitroglycerin (Nitroglycerin Sl 0.4 Mg/Tab Tab) 0.4 mg SL PRN PRN PRN Reason: Chest Pain Stop: 07/15/22 18:44 Ropinirole HCl (Ropinirole Hcl 0.25 Mg Tablet) 0.25 mg PO HS [facility] Stop: 07/15/22 20:59 Last Admin: 07/06/22 20:31 Dose: 0.25 mg Vitamin B Complex/Folic Acid (Nephrocaps) 1 cap PO BID [facility] Stop: 07/09/22 12:14 Last Admin: 07/07/22 08:47 Dose: 1 cap Warfarin Sodium (Warfarin Sod 1 Mg Tab) 1 mg PO DAILY@1600 [facility] Stop: 07/26/22 15:59 Last Admin: 07/04/22 15:07 Dose: 1 mg
[2022-07-07 13:59] LABS: BUN Creatinine Ratio 13.2 (10-20); Calcium 9.2 mg/dl (8.5-10.1); Creatinine Clr Calc Pharmacy 23.6 ml/min; Est GFR (African American) 25.8 ml/min; Est GFR (Non-African American) 22.3 ml/min; Potassium 4.1 mmol/L (3.5-5.1)
[2022-07-07] MEDS: HEPARIN SOD (PORCINE) 1000 UNIT/ML IV SCH ×5 (14:42→16:19)
[2022-07-07] MEDS: MEROPENEM 500 MG in SYRINGE 0 ML IV SCH (18:22)
[2022-07-07] MEDS: WARFARIN SOD 1 MG TAB PO SCH (18:22)
--- NOTE | 2022-07-07 19:28 | Nephrology Progress Note ---
Date of Service July 07, 2022 Assessment & Plan (1) End-stage renal disease (ESRD): Plan: Had HD today w/ goal 3 L off > got this once again w/ albumin and midodrine > 9L off past 3 days >her hypotension is best managed w/ more HD in my opinion > would reserve albumin, midodrine for optimizing BP for fluid removal; would assess pt for sx of low BP before treating >>>has also had AF /RVR earlier this admission w/ standing midodrine and would avoid its use with this frequency -next HD on 07/09 > 4 days weekly to optimize fluid mgt/BP Admission and Anticipated Discharge Date Admission Date: May 14, 2022 Subjective seen on rounds this am about 1045; ongong buttock/leg pain, no sob; edema improving Review of Systems Review of Systems: All systems reviewed & are unremarkable except as noted in Subjective Physical Exam Constitutional: well developed and well nourished; no acute distress Eyes: EOM intact bilaterally ENMT: Ears: no external ear abnormality Nose: no external nose abnormality Mouth: + dry oral mucous membranes Neck: no nuchal rigidity Respiratory: normal respiratory effort Auscultation: + diminished lung sounds Cardiovascular: Rate/Rhythm: regular rate and regular rhythm Extremities: + edema (trace-1+) Gastrointestinal (Abdomen): Inspection/Auscultation: abdomen normal to inspection (colostomy bag present) and normal bowel sounds Percussion/Palpation: abdomen soft; abdomen nontender Musculoskeletal: Extremities: strength 5/5 throughout and + abnormal strength Skin: no rashes, warm and dry Psychiatric: Orientation: oriented to person and oriented to place Speech: normal rate/rhythm/volume of speech Cognition: + recent memory not intact Results & Data ([facility]) Vital Signs (Past 12 Hours) Vital Signs Temp Pulse Pulse Pulse Resp BP BP 07/07/22 17:00 96 H 97/57 L 07/07/22 16:30 97 H 98/44 L 07/07/22 17:20 37.3 C 95 H 101/53 L 07/07/22 16:00 93 H 96/45 L 07/07/22 15:30 89 96/41 L 07/07/22 15:00 95 H 95/45 L 07/07/22 14:45 92 H 96/46 L 07/07/22 14:30 97 H 74/22 L 07/07/22 14:00 99 H 92/49 L 07/07/22 13:30 97 H 108/54 L 07/07/22 13:18 95 H 107/53 L 07/07/22 13:13 36.7 C 97 H 07/07/22 11:30 07/07/22 07:50 37.0 C 90 16 89/53 L Pulse Ox O2 Del Method O2 Flow Rate 07/07/22 17:00 07/07/22 16:30 07/07/22 17:20 07/07/22 16:00 07/07/22 15:30 07/07/22 15:00 07/07/22 14:45 07/07/22 14:30 07/07/22 14:00 07/07/22 13:30 07/07/22 13:18 07/07/22 13:13 07/07/22 11:30 Nasal Cannula 2 07/07/22 07:50 100 Room Air Laboratory Results 07/07/22 13:14 07/07/22 13:14
[2022-07-07] MEDS: rOPINIRole HCL 0.25 MG TABLET PO SCH (20:59)
[2022-07-07] MEDS: GABAPENTIN 300 MG CAP PO SCH (20:59)
[2022-07-07] MEDS: LATANOPROST 0.005% OP SOLN 2.5 ML BTL OPB SCH (21:00)
[2022-07-07] MEDS ORDERED: FLUCONAZOLE 50 MG TAB PO ONE (21:00)
[2022-07-07] MEDS: BRIMONIDINE TARTRATE 0.2% 5ML OPB SCH (21:01)
[2022-07-07] MEDS: LANTUS PER UNIT CHARGE SQ SCH (21:13)
[2022-07-08] MEDS: CHECK fentaNYL PATCH PLACEMENT SCH ×3 (00:47→16:12)
[2022-07-08] MEDS: DOCUSATE SODIUM 100 MG CAP PO SCH ×2 (08:39→20:26)
[2022-07-08] MEDS: FLUTICASONE PROPIONATE NA SPR 16 GM BTL SCH (08:40)
[2022-07-08] MEDS: NEPHROCAPS PO SCH ×2 (08:40→20:24)
[2022-07-08] MEDS: ACETIC ACID 0.25% IRRIG SOLN 1000 ML PLCT IR SCH (08:44)
[2022-07-08] MEDS: INSULIN ASPART PER UNIT SC SCH ×4 (08:57→21:47)
[2022-07-08 11:08] LABS: INR 1.4 (0.9-1.1); Prothrombin Time 15.1 Seconds (9.0-12.0)
[2022-07-08 11:22] LABS: BUN Creatinine Ratio 12.1 (10-20); Calcium 9.2 mg/dl (8.5-10.1); Creatinine Clr Calc Pharmacy 30.1 ml/min; Est GFR (African American) 34.6 ml/min; Est GFR (Non-African American) 29.8 ml/min; Potassium 3.6 mmol/L (3.5-5.1)
--- NOTE | 2022-07-08 12:16 | Surgery Progress Note ---
Date of Service July 08, 2022 Assessment & Plan (1) Sacral osteomyelitis: Plan: Yesterday had a cough with Dr. Leon plastic surgeon regarding the large sacral decubiti that is failing to heal Dr. Leon really has nothing more to offer the patient flaps are out of the question for unlikely to heal giving multiple contraindication including previous radiation This morning I had a talk with her Paul who had talked to before regarding nonhealing aspects of the sacral ulcerations even though I debrided it twice and each time unable to really arrest the deterioration and unable to apply VAC systems appropriately chemical debridement and also acetic acid by Dr. Leon I did tell him there is nothing further that I can do or to Dr. Leon could do to get these areas to heal We will continue to make the patient comfortable He understands regarding her situation and the poor prognosis Admission and Anticipated Discharge Date Admission Date: May 14, 2022 Results & Data ([place]) Vital Signs (Past 12 Hours) Vital Signs Temp Pulse Resp BP Pulse Ox O2 Del Method O2 Flow Rate 07/08/22 09:00 Nasal Cannula 2 07/08/22 07:46 36.5 C 82 16 84/44 L 100 PG Care Time/CCT Total # of Minutes Spent Total Time Spent with Patient: Total time spent is greater than 50% in coordination of care (as documented) at patient's floor/unit and/or counseling patient: Coding Level of Care Code 09792 Inpt Consult Level 2 Diagnoses Sacral osteomyelitis M46.28
[2022-07-08] MEDS: HYDROCODONE/ACETAMOPHEN 5/325MG TAB PO PRN ×2 (12:39→20:23)
[2022-07-08] MEDS: MEROPENEM 500 MG in SYRINGE 0 ML IV SCH (17:15)
[2022-07-08] MEDS: WARFARIN SOD 1 MG TAB PO SCH (17:16)
--- NOTE | 2022-07-08 19:34 | Hospitalist Progress Note ---
Date of Service July 08, 2022 Assessment & Plan (1) Sacral osteomyelitis: Plan: Sacral Wound Osteomyelitis Had Multiple debridement Had wound VAC placed but got dislodged Sacral Wound Grew: Enterococcus VRE on 05/27/2022 Stage IV sacral ulcer with likely underlying osteomyelitis S/P debridement of sacral ulcer with bone biopsy on 05/27/2022 and repeat debridement 06/10 Evaluated by surgery and ID Was on IV cefepime, daptomycin and oral fluconazole Hospitalist discussed with ID, on 06/14. On Daptomycin for Enterococcus facecium VRE - ID suggested daptomycin for 3 more weeks. However, given the extent of her sacral wound; infection control is difficult. Continue aggressive wound care. Discussed with family at bedside; they do not want her to go to [facility]. Would prefer her to go to [facility]. We will continue aggressive wound care daily while inpatient. . Appreciate surgery recommendation. Daptomycin course finished Plastic surgery also consulted - appreciate their Input Wound culture growing Pseudomonas,Prevotella ID re-consulted Given low prealbumin; not a good surgical candidate, wound has been difficult to heal Also started on cefepime 06/29/22>>Changed to Meropenem on 07/02/22 Poor Prognosis Continue wound care Intolerance to Envella bed--discontinued Continue IV antibiotics Continue current management 07/07 - discussed again with Dr. Leon, plastic surgery, at the bedside. As per her note - Wound continues to further necrose, including base of wound and periphery. Sacrum completely exposed, sutures visible at wound base. Some granulation noted. Odor has improved. Prealbumin 3, Hgb 8. Discussed with patient the importance of offloading (turning fully side to side to relieve pressure on wound). The wound continues to extend due to lack of offloading, poor protein intake, and further debridement is not going to be of benefit. Goals at this point should be to prevent further extension of the wound or infection. Continue acetic acid for another 2 days, then switch to saline wet to damp dressings. 07/08 Acetic acid dressings day 9 out of 10 ? Hemoptysis - resolved ? Pneumonia Continue IV antibiotics as above resume Coumadin Monitor INR, CBC No hemoptysis today Headache CT head: negative resolved Adjustment disorder with depressed mood Appreciate psychiatrist input and recommendation Vitamin B12, folate and TSH are normal stable Anemia: Chronic anemia in the setting of ESRD and GI losses (reported but not observed) and phlebotomy Was reportedly getting ?EPO injections with HD per Patient - continue EPO per renal No signs of active bleeding Positive FOBT S/P PRBCs during HD Monitor CBC: ~ Hgb 8 New onset atrial fibrillation: On amiodarone 200mg once daily. Supratherapeutic INR--Resolved INR 1.4 today monitor INR Resumed Coumadin Stage IV sacral ulcer Radiation necrosis of skin and subcutaneous: Management as above Acute hyponatremia: likely due to sepsis and decrease po intake Sodium level 132 Monitor End-stage renal disease (ESRD): Has been on HD for the past year, per patient Normal HD schedule MWF Continue hemodialysis as per Nephrology Had HD today DM II: Continue insulin per protocol Hypothyroidism: TSH 22, FT4 <0.25 unclear if patient taking medication appropriately TSH normalized with restarting levothyroxine Thrombocytopenia: unclear chronicity likely consumption in sepsis, ESRD, chronic illness no signs of bleeding resolved DVT Px: Coumadin Code Status: DNI/DNR Admission and Anticipated Discharge Date Admission Date: May 14, 2022 Subjective Follow-up for sacral osteomyelitis, ESRD, etc. Pt is resting, laying in bed , in NAD Patient seen with plastic surgeon, Dr. Leon at the bedside yesterday Pt did not tolerate Envella bed and was switched again Dressings changed to use acetic acid - day 07/03, also pt currently on meropenem Pain seems improved (seen by Dr Mcnulty) No fever, chills, shortness of breath, chest pain, dizziness, palpitations, nausea vomiting Patient tells me that yesterday she did not feel well, and was contemplating stopping dialysis however today she feels much better. She thinks that she is now improving. I told her that I am glad that she feels better, however unfortunately I cannot say that her wound is improving.. Discussed offloading the wound, and nutrition improvement. Review of Systems Review of Systems: All systems reviewed & are unremarkable except as noted in Subjective Physical Exam Physical Exam: General Appearance:Obese F, chronically ill appearing Head: normocephalic, Atraumatic Eyes: normal inspection, EOMI Neck: supple Respiratory/Chest: Decreased breath sounds, CTA, No accessory muscle use Cardiovascular: S1, S2, No murmur Abdomen/GI:Soft, Non tender, +Colostomy, Bowel sounds present Back:significant sacral wound (see image in EMR) Extremities/Musculoskeletal:normal inspection, + trace LE edema Neurologic/Psych:AAOX3, grossly no focal neurological deficits Skin: normal color, warm, +Sacral wound Results & Data Results & Data ([facility]) Vital Signs (Past 12 Hours) Vital Signs Temp Pulse Resp BP Pulse Ox O2 Del Method O2 Flow Rate 07/08/22 15:59 36.6 C 85 16 99/60 L 100 07/08/22 09:00 Nasal Cannula 2 07/08/22 07:46 36.5 C 82 16 84/44 L 100 Laboratory Results 07/08/22 07/08/22 07/08/22 Range/Units 17:26 12:25 10:06 PT 15.1 H (9.0-12.0) Seconds INR 1.4 H (0.9-1.1) Sodium (136-145) mmol/L Potassium (3.5-5.1) mmol/L Chloride (98-107) mmol/L Carbon Dioxide (21-32) mmol/L Anion Gap (3-11) BUN (6-23) mg/dl Creatinine (0.6-1.2) mg/dl Est Cr Clr Drug Dosing ml/min Est GFR ( Amer) ml/min Est GFR (Non-Af Amer) ml/min BUN/Creatinine Ratio (10-20) Glucose (70-99(Fasting)) mg/dl POC Glucose 110 H 234 H (70-99) mg/dl Calcium (8.5-10.1) mg/dl 07/08/22 07/08/22 07/07/22 Range/Units 10:06 08:13 20:46 PT (9.0-12.0) Seconds INR (0.9-1.1) Sodium 132 L (136-145) mmol/L Potassium 3.6 (3.5-5.1) mmol/L Chloride 99 (98-107) mmol/L Carbon Dioxide 27 (21-32) mmol/L Anion Gap 6 (3-11) BUN 21 (6-23) mg/dl Creatinine 1.73 H D (0.6-1.2) mg/dl Est Cr Clr Drug Dosing 30.1 ml/min Est GFR ( Amer) 34.6 ml/min Est GFR (Non-Af Amer) 29.8 ml/min BUN/Creatinine Ratio 12.1 (10-20) Glucose 270 H (70-99(Fasting)) mg/dl POC Glucose 222 H 158 H (70-99) mg/dl Calcium 9.2 (8.5-10.1) mg/dl Medications Administered Current Inpatient Medications Hydrocodone Bitart/Acetaminophen (Hydrocodone/Acetamophen 5/325mg Tab) 1 tab PO Q6H PRN PRN Reason: Pain Stop: 07/16/22 17:11 Last Admin: 07/08/22 12:39 Dose: 1 tab Acetic Acid (Acetic Acid 0.25% Irrig Soln 1000 Ml Plct) 1 appln IR DAILY [facility] Stop: 07/30/22 08:59 Last Admin: 07/08/22 08:44 Dose: 1 appln Brimonidine Tartrate (Brimonidine Tartrate 0.2% 5ml) 1 drops OPB HS [facility] Stop: 07/30/22 23:39 Last Admin: 07/07/22 21:01 Dose: 1 drops Diphenhydramine HCl (Diphenhydramine Capsule 25 Mg Cap) 25 mg PO BID PRN PRN Reason: Allergy Symptoms Stop: 07/09/22 20:12 Last Admin: 07/04/22 15:06 Dose: 25 mg Docusate Sodium (Docusate Sodium 100 Mg Cap) 100 mg PO BID [facility] Stop: 07/31/22 14:44 Last Admin: 07/08/22 08:39 Dose: 100 mg Fentanyl (Fentanyl 12 Mcg/Hr Tdsy) 12 mcg TD Q3D@0900 [facility] Stop: 07/15/22 14:59 Last Admin: 07/07/22 08:58 Dose: 12 mcg Fluticasone Propionate (Fluticasone Propionate Na Spr 16 Gm Btl) 2 sprays NA DAILY [facility] Stop: 07/12/22 22:24 Last Admin: 07/08/22 08:40 Dose: Not Given Gabapentin (Gabapentin 300 Mg Cap) 300 mg PO HS [facility] Stop: 07/22/22 20:59 Last Admin: 07/07/22 20:59 Dose: 300 mg Promethazine HCl 12.5 mg/ (Sodium Chloride) 50.5 mls @ 202 mls/hr IV Q6H PRN PRN Reason: Nausea And Vomiting Stop: 07/31/22 18:15 Meropenem 500 mg/ Syringe 10 mls @ 2 mls/min IV Q24H [facility]; Protocol Stop: 07/09/22 16:59 Last Admin: 07/08/22 17:15 Dose: 2 mls/min Insulin Aspart (Insulin Aspart Per Unit) 0 units SC ACHS [facility]; Protocol Stop: 07/16/22 11:29 Last Admin: 07/08/22 18:02 Dose: 11 units Insulin Glargine (Lantus Per Unit Charge) 14 units SQ HS [facility]; Protocol Stop: 07/17/22 20:59 Last Admin: 07/07/22 21:13 Dose: 14 units Latanoprost (Latanoprost 0.005% Op Soln 2.5 Ml Btl) 1 drops OPB HS [facility] Stop: 07/17/22 21:04 Last Admin: 07/07/22 21:00 Dose: 1 drops Lorazepam (Lorazepam 0.5 Mg Tab) 0.5 mg PO TID PRN PRN Reason: Anxiety Stop: 08/05/22 05:54 Menthol (Cough Drop (Sugar Free) Norman 24 Norman/1 Box) 1 norman BUCCAL Q2H PRN PRN Reason: Sore Throat Stop: 07/10/22 17:08 Last Admin: 06/11/22 23:23 Dose: 1 norman Miscellaneous (Fentanyl Patch Remove & Waste) 1 each N/A Q3D@0859 [facility] Stop: 07/31/22 14:58 Last Admin: 07/07/22 08:48 Dose: 1 each Miscellaneous (Check Fentanyl Patch Placement) 1 each N/A QS [facility] Stop: 07/31/22 15:59 Last Admin: 07/08/22 16:12 Dose: 1 each Nitroglycerin (Nitroglycerin Sl 0.4 Mg/Tab Tab) 0.4 mg SL PRN PRN PRN Reason: Chest Pain Stop: 07/15/22 18:44 Ropinirole HCl (Ropinirole Hcl 0.25 Mg Tablet) 0.[address] [facility] Stop: 07/15/22 20:59 Last Admin: 07/07/22 20:59 Dose: 0.25 mg Vitamin B Complex/Folic Acid (Nephrocaps) 1 cap PO BID [facility] Stop: 07/09/22 12:14 Last Admin: 07/08/22 08:40 Dose: 1 cap Warfarin Sodium (Warfarin Sod 1 Mg Tab) 1 mg PO DAILY@1600 [facility] Stop: 07/26/22 15:59 Last Admin: 07/08/22 17:16 Dose: 1 mg
[2022-07-08] MEDS: BRIMONIDINE TARTRATE 0.2% 5ML OPB SCH (20:24)
[2022-07-08] MEDS: rOPINIRole HCL 0.25 MG TABLET PO SCH (20:24)
[2022-07-08] MEDS: GABAPENTIN 300 MG CAP PO SCH (20:24)
[2022-07-08] MEDS: LATANOPROST 0.005% OP SOLN 2.5 ML BTL OPB SCH (20:25)
[2022-07-08] MEDS: LANTUS PER UNIT CHARGE SQ SCH (21:47)
[2022-07-09] MEDS: CHECK fentaNYL PATCH PLACEMENT SCH ×3 (00:05→16:25)
[2022-07-09] MEDS: HYDROCODONE/ACETAMOPHEN 5/325MG TAB PO PRN ×3 (04:13→21:08)
[2022-07-09] MEDS ORDERED: IRON SUCROSE 100 MG in SYRINGE 0 ML IV ONE (07:00)
[2022-07-09] MEDS ORDERED: SODIUM CHLORIDE 0.9% 1000ML 1,000 ML IV PRN (07:00)
[2022-07-09] MEDS ORDERED: EPOETIN ALFA 20,000 UNITS/ML VIAL IV ONE (07:00)
[2022-07-09] MEDS: FLUTICASONE PROPIONATE NA SPR 16 GM BTL SCH (07:27)
[2022-07-09] MEDS: ACETIC ACID 0.25% IRRIG SOLN 1000 ML PLCT IR SCH (07:28)
[2022-07-09] MEDS: NEPHROCAPS PO SCH (07:31)
[2022-07-09] MEDS: DOCUSATE SODIUM 100 MG CAP PO SCH ×2 (07:31→21:12)
[2022-07-09] MEDS: INSULIN ASPART PER UNIT SC SCH ×4 (09:02→21:13)
[2022-07-09] MEDS ORDERED: MIDODRINE HCL 10 MG TAB PO STA (13:17)
[2022-07-09 14:53] LABS: INR 1.6 (0.9-1.1); Prothrombin Time 16.9 Seconds (9.0-12.0)
[2022-07-09] MEDS: WARFARIN SOD 1 MG TAB PO SCH (18:23)
--- NOTE | 2022-07-09 18:49 | Hospitalist Progress Note ---
Date of Service July 09, 2022 Assessment & Plan (1) Sacral osteomyelitis: Plan: Sacral Wound Osteomyelitis Had Multiple debridement Had wound VAC placed but got dislodged Sacral Wound Grew: Enterococcus VRE on 05/27/2022 Stage IV sacral ulcer with likely underlying osteomyelitis S/P debridement of sacral ulcer with bone biopsy on 05/27/2022 and repeat debridement 06/10 Evaluated by surgery and ID Was on IV cefepime, daptomycin and oral fluconazole Hospitalist discussed with ID, on 06/14. On Daptomycin for Enterococcus facecium VRE - ID suggested daptomycin for 3 more weeks. However, given the extent of her sacral wound; infection control is difficult. Continue aggressive wound care. Discussed with family at bedside; they do not want her to go to [facility]. Would prefer her to go to [facility]. We will continue aggressive wound care daily while inpatient. Appreciate surgery recommendation. Daptomycin course finished Plastic surgery also consulted - appreciate their Input Wound culture growing Pseudomonas,Prevotella ID re-consulted Given low prealbumin; not a good surgical candidate, wound has been difficult to heal Also started on cefepime 06/29/22>>Changed to Meropenem on 07/02/22 Poor Prognosis Continue wound care Intolerance to Envella bed--discontinued Continue IV antibiotics Continue current management 07/07 - discussed again with Dr. Leon, plastic surgery, at the bedside. As per her note - Wound continues to further necrose, including base of wound and periphery. Sacrum completely exposed, sutures visible at wound base. Some granulation noted. Odor has improved. Prealbumin 3, Hgb 8. Discussed with patient the importance of offloading (turning fully side to side to relieve pressure on wound). The wound continues to extend due to lack of offloading, poor protein intake, and further debridement is not going to be of benefit. Goals at this point should be to prevent further extension of the wound or infection. Continue acetic acid for another 2 days, then switch to saline wet to damp dressings. 07/09 Acetic acid dressings day 10 out of 10 ? Hemoptysis - resolved ? Pneumonia Continue IV antibiotics as above resume Coumadin Monitor INR, CBC No hemoptysis today Headache CT head: negative resolved Adjustment disorder with depressed mood Appreciate psychiatrist input and recommendation Vitamin B12, folate and TSH are normal stable Anemia: Chronic anemia in the setting of ESRD and GI losses (reported but not observed) and phlebotomy Was reportedly getting ?EPO injections with HD per Patient - continue EPO per renal No signs of active bleeding Positive FOBT S/P PRBCs during HD Monitor CBC: ~ Hgb 8 New onset atrial fibrillation: On amiodarone 200mg once daily. Supratherapeutic INR--Resolved INR 1.4 today monitor INR Resumed Coumadin Stage IV sacral ulcer Radiation necrosis of skin and subcutaneous: Management as above Acute hyponatremia: likely due to sepsis and decrease po intake Sodium level 132 Monitor End-stage renal disease (ESRD): Has been on HD for the past year, per patient Normal HD schedule MWF Continue hemodialysis as per Nephrology Had HD today DM II: Continue insulin per protocol Hypothyroidism: TSH 22, FT4 <0.25 unclear if patient taking medication appropriately TSH normalized with restarting levothyroxine Thrombocytopenia: unclear chronicity likely consumption in sepsis, ESRD, chronic illness no signs of bleeding resolved DVT Px: Coumadin Code Status: DNI/DNR Admission and Anticipated Discharge Date Admission Date: May 14, 2022 Subjective Follow-up for sacral osteomyelitis, ESRD, etc. Pt seen on HD Dressings changed to use acetic acid - day 08/02, also pt currently on meropenem Pain seems improved (seen by Dr Mcnulty) No fever, chills, shortness of breath, chest pain, dizziness, palpitations, nausea vomiting Discussed offloading the wound, and nutrition improvement. Review of Systems Review of Systems: All systems reviewed & are unremarkable except as noted in Subjective Physical Exam Physical Exam: General Appearance:Obese F, chronically ill appearing Head: normocephalic, Atraumatic Eyes: normal inspection, EOMI Neck: supple Respiratory/Chest: Decreased breath sounds, CTA, No accessory muscle use Cardiovascular: S1, S2, No murmur Abdomen/GI:Soft, Non tender, +Colostomy, Bowel sounds present Back:significant sacral wound (see image in EMR) Extremities/Musculoskeletal:normal inspection, + trace LE edema Neurologic/Psych:AAOX3, grossly no focal neurological deficits Skin: normal color, warm, +Sacral wound Results & Data Results & Data ([facility] [place]) Vital Signs (Past 12 Hours) Vital Signs Temp Pulse Pulse Pulse Resp BP BP 07/09/22 17:30 36.7 C 92 H 86/56 L 07/09/22 17:00 91 H 79/50 L 07/09/22 16:30 95 H 80/48 L 07/09/22 16:00 90 81/47 L 07/09/22 15:30 88 76/50 L 07/09/22 15:00 88 72/51 L 07/09/22 14:30 91 H 77/45 L 07/09/22 14:00 91 H 90/51 L 07/09/22 13:45 89 101/57 L 07/09/22 13:30 36.8 C 77 07/09/22 07:23 36.5 C 81 16 94/56 L Pulse Ox O2 Del Method O2 Flow Rate 07/09/22 17:30 07/09/22 17:00 07/09/22 16:30 07/09/22 16:00 07/09/22 15:30 07/09/22 15:00 07/09/22 14:30 07/09/22 14:00 07/09/22 13:45 07/09/22 13:30 07/09/22 07:23 100 Nasal Cannula 2 Laboratory Results 07/09/22 07/09/22 07/09/22 Range/Units 17:45 13:53 11:36 PT 16.9 H (9.0-12.0) Seconds INR 1.6 H (0.9-1.1) POC Glucose 121 H 277 H (70-99) mg/dl 07/09/22 07/08/22 Range/Units 08:41 20:44 PT (9.0-12.0) Seconds INR (0.9-1.1) POC Glucose 248 H 139 H (70-99) mg/dl Medications Administered Current Inpatient Medications Hydrocodone Bitart/Acetaminophen (Hydrocodone/Acetamophen 5/325mg Tab) 1 tab PO Q6H PRN PRN Reason: Pain Stop: 07/16/22 17:11 Last Admin: 07/09/22 11:53 Dose: 1 tab Acetic Acid (Acetic Acid 0.25% Irrig Soln 1000 Ml Plct) 1 appln IR DAILY [facility] Stop: 07/30/22 08:59 Last Admin: 07/09/22 07:28 Dose: 1 appln Brimonidine Tartrate (Brimonidine Tartrate 0.2% 5ml) 1 drops OPB HS [facility] Stop: 07/30/22 23:39 Last Admin: 07/08/22 20:24 Dose: 1 drops Diphenhydramine HCl (Diphenhydramine Capsule 25 Mg Cap) 25 mg PO BID PRN PRN Reason: Allergy Symptoms Stop: 07/09/22 20:12 Last Admin: 07/04/22 15:06 Dose: 25 mg Docusate Sodium (Docusate Sodium 100 Mg Cap) 100 mg PO BID [facility] Stop: 07/31/22 14:44 Last Admin: 07/09/22 07:31 Dose: 100 mg Fentanyl (Fentanyl 12 Mcg/Hr Tdsy) 12 mcg TD Q3D@0900 [facility] Stop: 07/15/22 14:59 Last Admin: 07/07/22 08:58 Dose: 12 mcg Fluticasone Propionate (Fluticasone Propionate Na Spr 16 Gm Btl) 2 sprays NA DAILY [facility] Stop: 07/12/22 22:24 Last Admin: 07/09/22 07:27 Dose: Not Given Gabapentin (Gabapentin 300 Mg Cap) 300 mg PO [facility] Stop: 07/22/22 20:59 Last Admin: 07/08/22 20:24 Dose: 300 mg Promethazine HCl 12.5 mg/ (Sodium Chloride) 50.5 mls @ 202 mls/hr IV Q6H PRN PRN Reason: Nausea And Vomiting Stop: 07/31/22 18:15 Insulin Aspart (Insulin Aspart Per Unit) 0 units SC [facility]; Protocol Stop: 07/16/22 11:29 Last Admin: 07/09/22 18:23 Dose: 7 units Insulin Glargine (Lantus Per Unit Charge) 14 units SQ [facility]; Protocol Stop: 07/17/22 20:59 Last Admin: 07/08/22 21:47 Dose: 14 units Latanoprost (Latanoprost 0.005% Op Soln 2.5 Ml Btl) 1 drops OPB HS [facility] Stop: 07/17/22 21:04 Last Admin: 07/08/22 20:25 Dose: 1 drops Lorazepam (Lorazepam 0.5 Mg Tab) 0.5 mg PO TID PRN PRN Reason: Anxiety Stop: 08/05/22 05:54 Menthol (Cough Drop (Sugar Free) Norman 24 Norman/1 Box) 1 norman BUCCAL Q2H PRN PRN Reason: Sore Throat Stop: 07/10/22 17:08 Last Admin: 06/11/22 23:23 Dose: 1 norman Miscellaneous (Fentanyl Patch Remove & Waste) 1 each N/A Q3D@0859 [facility] Stop: 07/31/22 14:58 Last Admin: 07/07/22 08:48 Dose: 1 each Miscellaneous (Check Fentanyl Patch Placement) 1 each N/A QS [facility] Stop: 07/31/22 15:59 Last Admin: 07/09/22 16:25 Dose: Not Given Nitroglycerin (Nitroglycerin Sl 0.4 Mg/Tab Tab) 0.4 mg SL PRN PRN PRN Reason: Chest Pain Stop: 07/15/22 18:44 Ropinirole HCl (Ropinirole Hcl 0.25 Mg Tablet) 0.25 mg PO HS [facility] Stop: 07/15/22 20:59 Last Admin: 07/08/22 20:24 Dose: 0.25 mg Warfarin Sodium (Warfarin Sod 1 Mg Tab) 1 mg PO DAILY@1600 [facility] Stop: 07/26/22 15:59 Last Admin: 07/09/22 18:23 Dose: 1 mg
[2022-07-09] MEDS: BRIMONIDINE TARTRATE 0.2% 5ML OPB SCH (21:02)
[2022-07-09] MEDS: LATANOPROST 0.005% OP SOLN 2.5 ML BTL OPB SCH (21:02)
[2022-07-09] MEDS: GABAPENTIN 300 MG CAP PO SCH (21:07)
[2022-07-09] MEDS: rOPINIRole HCL 0.25 MG TABLET PO SCH (21:08)
[2022-07-09] MEDS: LANTUS PER UNIT CHARGE SQ SCH (21:12)
--- NOTE | 2022-07-09 21:50 | Dialysis Progress Note ---
Date of Service July 09, 2022 Assessment & Plan (1) End-stage renal disease (ESRD): Plan: Had HD today w/ goal 3 L off > got this once again w/ albumin and midodrine >her hypotension is best managed w/ more HD in my opinion > would reserve albumin, midodrine for optimizing BP for fluid removal; would assess pt for sx of low BP before treating >>>has also had AF /RVR earlier this admission w/ standing midodrine and would avoid its use with this frequency -next HD on 07/12 > 4 days weekly to optimize fluid mgt/BP Admission and Anticipated Discharge Date Admission Date: May 14, 2022 Subjective Follow-up for sacral osteomyelitis, ESRD, etc. Pt seen on HD No fever, chills, shortness of breath, chest pain, dizziness, palpitations, nausea vomiting Has been thinking of withdrawing Tx , Review of Systems Review of Systems: NO sob Bilateral pedal edema , improved. Physical Exam Physical Exam: General Appearance: Comfortable, No apparent distress Head: normocephalic, Atraumatic Eyes: normal inspection, EOMI Neck: supple, Trachea midline Respiratory/Chest: Decreased breath sounds, CTA, No accessory muscle use Cardiovascular: S1, S2, No murmur Abdomen/GI:Soft, abd distended, Non tender, Bowel sounds present Extremities/Musculoskeletal:normal inspection, +3 B/L LE edema Neurologic/Psych:AAOX3, grossly no focal neurological deficits Skin: normal color, warm Results & Data ([facility]) Vital Signs (Past 12 Hours) Vital Signs Temp Pulse Pulse BP BP 07/09/22 17:30 36.7 C 92 H 86/56 L 07/09/22 17:00 91 H 79/50 L 07/09/22 16:30 95 H 80/48 L 07/09/22 16:00 90 81/47 L 07/09/22 15:30 88 76/50 L 07/09/22 15:00 88 72/51 L 07/09/22 14:30 91 H 77/45 L 07/09/22 14:00 91 H 90/51 L 07/09/22 13:45 89 101/57 L 07/09/22 13:30 36.8 C 77 Laboratory Results 07/07/22 13:14 07/08/22 10:06
[2022-07-10] MEDS: HYDROCODONE/ACETAMOPHEN 5/325MG TAB PO PRN ×2 (09:37→14:33)
[2022-07-10] MEDS: CHECK fentaNYL PATCH PLACEMENT SCH ×3 (09:38→18:38)
[2022-07-10] MEDS: FLUTICASONE PROPIONATE NA SPR 16 GM BTL SCH (09:43)
[2022-07-10] MEDS: fentaNYL 12 MCG/HR TDSY TD SCH (10:38)
[2022-07-10] MEDS: DOCUSATE SODIUM 100 MG CAP PO SCH ×2 (10:39→21:07)
[2022-07-10] MEDS: INSULIN ASPART PER UNIT SC SCH ×4 (10:40→20:52)
[2022-07-10] MEDS: ACETIC ACID 0.25% IRRIG SOLN 1000 ML PLCT IR SCH (14:36)
--- NOTE | 2022-07-10 16:39 | Hospitalist Progress Note ---
Date of Service July 10, 2022 Assessment & Plan (1) Sacral osteomyelitis: Plan: Sacral Wound Osteomyelitis Had Multiple debridement Had wound VAC placed but got dislodged Sacral Wound Grew: Enterococcus VRE on 05/27/2022 Stage IV sacral ulcer with likely underlying osteomyelitis S/P debridement of sacral ulcer with bone biopsy on 05/27/2022 and repeat debridement 06/10 Evaluated by surgery and ID Was on IV cefepime, daptomycin and oral fluconazole Hospitalist discussed with ID, on 06/14. On Daptomycin for Enterococcus facecium VRE - ID suggested daptomycin for 3 more weeks. However, given the extent of her sacral wound; infection control is difficult. Continue aggressive wound care. Discussed with family at bedside; they do not want her to go to [facility]. Would prefer her to go to [facility]. We will continue aggressive wound care daily while inpatient. Appreciate surgery recommendation. Daptomycin course finished Plastic surgery also consulted - appreciate their Input Wound culture growing Pseudomonas,Prevotella ID re-consulted Given low prealbumin; not a good surgical candidate, wound has been difficult to heal Also started on cefepime 06/29/22>>Changed to Meropenem on 07/02/22 Poor Prognosis Continue wound care Intolerance to Envella bed--discontinued Continue IV antibiotics Continue current management 07/07 - discussed again with Dr. Leon, plastic surgery, at the bedside. As per her note - Wound continues to further necrose, including base of wound and periphery. Sacrum completely exposed, sutures visible at wound base. Some granulation noted. Odor has improved. Prealbumin 3, Hgb 8. Discussed with patient the importance of offloading (turning fully side to side to relieve pressure on wound). The wound continues to extend due to lack of offloading, poor protein intake, and further debridement is not going to be of benefit. Goals at this point should be to prevent further extension of the wound or infection. Continue acetic acid for another 2 days, then switch to saline wet to damp dressings. 07/09 - finished 10 days of Acetic acid dressings ? Hemoptysis - resolved ? Pneumonia Continue IV antibiotics as above resumed Coumadin Monitor INR, CBC No hemoptysis today Headache CT head: negative resolved Adjustment disorder with depressed mood Appreciate psychiatrist input and recommendation Vitamin B12, folate and TSH are normal stable Anemia: Chronic anemia in the setting of ESRD and GI losses (reported but not observed) and phlebotomy Was reportedly getting ?EPO injections with HD per Patient - continue EPO per renal No signs of active bleeding Positive FOBT S/P PRBCs during HD Monitor CBC: ~ Hgb 8 New onset atrial fibrillation: On amiodarone 200mg once daily. Supratherapeutic INR--Resolved INR 1.6 monitor INR Resumed Coumadin Stage IV sacral ulcer Radiation necrosis of skin and subcutaneous: Management as above Acute hyponatremia: likely due to sepsis and decrease po intake Sodium level 132 Monitor End-stage renal disease (ESRD): Has been on HD for the past year, per patient Normal HD schedule MWF Continue hemodialysis as per Nephrology Had HD today DM II: Continue insulin per protocol Hypothyroidism: TSH 22, FT4 <0.25 unclear if patient taking medication appropriately TSH normalized with restarting levothyroxine Thrombocytopenia: unclear chronicity likely consumption in sepsis, ESRD, chronic illness no signs of bleeding resolved DVT Px: Coumadin Code Status: DNI/DNR Admission and Anticipated Discharge Date Admission Date: May 14, 2022 Subjective Follow-up for sacral osteomyelitis, ESRD, etc. Resting in bed in NAD Pain seems improved (seen by Dr Mcnulty) No fever, chills, shortness of breath, chest pain, dizziness, palpitations, nausea vomiting Discussed offloading the wound, and nutrition improvement. Review of Systems Review of Systems: All systems reviewed & are unremarkable except as noted in Subjective Physical Exam Physical Exam: General Appearance:Obese F, chronically ill appearing Head: normocephalic, Atraumatic Eyes: normal inspection, EOMI Neck: supple Respiratory/Chest: Decreased breath sounds, CTA, No accessory muscle use Cardiovascular: S1, S2, No murmur Abdomen/GI:Soft, Non tender, +Colostomy, Bowel sounds present Back:significant sacral wound (see image in EMR) Extremities/Musculoskeletal:normal inspection, + trace LE edema Neurologic/Psych:AAOX3, grossly no focal neurological deficits Skin: normal color, warm, +Sacral wound Results & Data Results & Data ([facility]) Vital Signs (Past 12 Hours) Vital Signs Temp Pulse Resp BP BP Pulse Ox O2 Del Method 07/10/22 08:00 Room Air 07/10/22 15:41 36.6 C 92 H 20 91/60 L 100 Nasal Cannula 07/10/22 07:30 36.6 C 88 20 103/58 L 90 Nasal Cannula O2 Flow Rate 07/10/22 08:00 07/10/22 15:41 2 07/10/22 07:30 2 Medications Administered Current Inpatient Medications Hydrocodone Bitart/Acetaminophen (Hydrocodone/Acetamophen 5/325mg Tab) 1 tab PO Q6H PRN PRN Reason: Pain Stop: 07/16/22 17:11 Last Admin: 07/10/22 14:33 Dose: 1 tab Acetic Acid (Acetic Acid 0.25% Irrig Soln 1000 Ml Plct) 1 appln IR DAILY [facility] Stop: 07/30/22 08:59 Last Admin: 07/10/22 14:36 Dose: 1 appln Brimonidine Tartrate (Brimonidine Tartrate 0.2% 5ml) 1 drops OPB HS [facility] Stop: 07/30/22 23:39 Last Admin: 07/09/22 21:02 Dose: 1 drops Docusate Sodium (Docusate Sodium 100 Mg Cap) 100 mg PO BID [facility] Stop: 07/31/22 14:44 Last Admin: 07/10/22 10:39 Dose: 100 mg Fentanyl (Fentanyl 12 Mcg/Hr Tdsy) 12 mcg TD Q3D@0900 [facility] Stop: 07/15/22 14:59 Last Admin: 07/10/22 10:38 Dose: 12 mcg Fluticasone Propionate (Fluticasone Propionate Na Spr 16 Gm Btl) 2 sprays NA DAILY [facility] Stop: 07/12/22 22:24 Last Admin: 07/10/22 09:43 Dose: Not Given Gabapentin (Gabapentin 300 Mg Cap) 300 mg PO [facility] Stop: 07/22/22 20:59 Last Admin: 07/09/22 21:07 Dose: 300 mg Promethazine HCl 12.5 mg/ (Sodium Chloride) 50.5 mls @ 202 mls/hr IV Q6H PRN PRN Reason: Nausea And Vomiting Stop: 07/31/22 18:15 Insulin Aspart (Insulin Aspart Per Unit) 0 units SC [facility]; Protocol Stop: 07/16/22 11:29 Last Admin: 07/10/22 14:26 Dose: 23 units Insulin Glargine (Lantus Per Unit Charge) 14 units SQ HS [facility]; Protocol Stop: 07/17/22 20:59 Last Admin: 07/09/22 21:12 Dose: 14 units Latanoprost (Latanoprost 0.005% Op Soln 2.5 Ml Btl) 1 drops OPB HS [facility] Stop: 07/17/22 21:04 Last Admin: 07/09/22 21:02 Dose: 1 drops Lorazepam (Lorazepam 0.5 Mg Tab) 0.5 mg PO TID PRN PRN Reason: Anxiety Stop: 08/05/22 05:54 Menthol (Cough Drop (Sugar Free) Norman 24 Norman/1 Box) 1 norman BUCCAL Q2H PRN PRN Reason: Sore Throat Stop: 07/10/22 17:08 Last Admin: 06/11/22 23:23 Dose: 1 norman Miscellaneous (Fentanyl Patch Remove & Waste) 1 each N/A Q3D@0859 [facility] Stop: 07/31/22 14:58 Last Admin: 07/10/22 10:39 Dose: 1 each Miscellaneous (Check Fentanyl Patch Placement) 1 each N/A QS [facility] Stop: 07/31/22 15:59 Last Admin: 07/10/22 09:38 Dose: 1 each Nitroglycerin (Nitroglycerin Sl 0.4 Mg/Tab Tab) 0.4 mg SL PRN PRN PRN Reason: Chest Pain Stop: 07/15/22 18:44 Ropinirole HCl (Ropinirole Hcl 0.25 Mg Tablet) 0.25 mg PO [facility] Stop: 07/15/22 20:59 Last Admin: 07/09/22 21:08 Dose: 0.25 mg Warfarin Sodium (Warfarin Sod 1 Mg Tab) 1 mg PO DAILY@1600 [facility] Stop: 07/26/22 15:59 Last Admin: 07/09/22 18:23 Dose: 1 mg
[2022-07-10] MEDS: WARFARIN SOD 1 MG TAB PO SCH (18:39)
[2022-07-10] MEDS: LATANOPROST 0.005% OP SOLN 2.5 ML BTL OPB SCH (20:48)
[2022-07-10] MEDS: BRIMONIDINE TARTRATE 0.2% 5ML OPB SCH (20:49)
[2022-07-10] MEDS: rOPINIRole HCL 0.25 MG TABLET PO SCH (20:49)
[2022-07-10] MEDS: GABAPENTIN 300 MG CAP PO SCH (20:49)
[2022-07-10] MEDS: LANTUS PER UNIT CHARGE SQ SCH (20:56)
[2022-07-11] MEDS: CHECK fentaNYL PATCH PLACEMENT SCH ×4 (00:04→21:16)
[2022-07-11] MEDS: HYDROCODONE/ACETAMOPHEN 5/325MG TAB PO PRN ×3 (01:29→14:17)
[2022-07-11] MEDS: FLUTICASONE PROPIONATE NA SPR 16 GM BTL SCH (09:35)
[2022-07-11] MEDS: INSULIN ASPART PER UNIT SC SCH ×4 (09:53→21:11)
[2022-07-11] MEDS: ACETIC ACID 0.25% IRRIG SOLN 1000 ML PLCT IR SCH (10:30)
[2022-07-11] MEDS: DOCUSATE SODIUM 100 MG CAP PO SCH ×2 (10:30→21:12)
--- NOTE | 2022-07-11 11:54 | Hospitalist Progress Note ---
Date of Service July 11, 2022 Assessment & Plan (1) Sacral osteomyelitis: Plan: Sacral Wound Osteomyelitis Had Multiple debridement Had wound VAC placed but got dislodged Sacral Wound Grew: Enterococcus VRE on 05/27/2022 Stage IV sacral ulcer with likely underlying osteomyelitis S/P debridement of sacral ulcer with bone biopsy on 05/27/2022 and repeat debridement 06/10 Evaluated by surgery and ID Was on IV cefepime, daptomycin and oral fluconazole Hospitalist discussed with ID, on 06/14. On Daptomycin for Enterococcus facecium VRE - ID suggested daptomycin for 3 more weeks. However, given the extent of her sacral wound; infection control is difficult. Continue aggressive wound care. Discussed with family at bedside; they do not want her to go to [facility]. Would prefer her to go to [facility]. We will continue aggressive wound care daily while inpatient. Appreciate surgery recommendation. Daptomycin course finished Plastic surgery also consulted - appreciate their Input Wound culture growing Pseudomonas,Prevotella ID re-consulted Given low prealbumin; not a good surgical candidate, wound has been difficult to heal Also started on cefepime 06/29/22>>Changed to Meropenem on 07/02/22 Poor Prognosis Continue wound care Intolerance to Envella bed--discontinued Continue IV antibiotics Continue current management 07/07 - discussed again with Dr. Leon, plastic surgery, at the bedside. As per her note - Wound continues to further necrose, including base of wound and periphery. Sacrum completely exposed, sutures visible at wound base. Some granulation noted. Odor has improved. Prealbumin 3, Hgb 8. Discussed with patient the importance of offloading (turning fully side to side to relieve pressure on wound). The wound continues to extend due to lack of offloading, poor protein intake, and further debridement is not going to be of benefit. Goals at this point should be to prevent further extension of the wound or infection. Continue acetic acid for another 2 days, then switch to saline wet to damp dressings. 07/09 - finished 10 days of Acetic acid dressings ? Hemoptysis - resolved ? Pneumonia Continue IV antibiotics as above resumed Coumadin Monitor INR, CBC No hemoptysis today Headache CT head: negative resolved Adjustment disorder with depressed mood Appreciate psychiatrist input and recommendation Vitamin B12, folate and TSH are normal stable Anemia: Chronic anemia in the setting of ESRD and GI losses (reported but not observed) and phlebotomy Was reportedly getting ?EPO injections with HD per Patient - continue EPO per renal No signs of active bleeding Positive FOBT S/P PRBCs during HD Monitor CBC: ~ Hgb 8 New onset atrial fibrillation: On amiodarone 200mg once daily. Supratherapeutic INR--Resolved INR 1.6 monitor INR Resumed Coumadin Stage IV sacral ulcer Radiation necrosis of skin and subcutaneous: Management as above Acute hyponatremia: likely due to sepsis and decrease po intake Sodium level 132 Monitor End-stage renal disease (ESRD): Has been on HD for the past year, per patient Normal HD schedule MWF Continue hemodialysis as per Nephrology Had HD today DM II: Continue insulin per protocol Hypothyroidism: TSH 22, FT4 <0.25 unclear if patient taking medication appropriately TSH normalized with restarting levothyroxine Thrombocytopenia: unclear chronicity likely consumption in sepsis, ESRD, chronic illness no signs of bleeding resolved DVT Px: Coumadin Code Status: DNI/DNR Admission and Anticipated Discharge Date Admission Date: May 14, 2022 Subjective Follow-up for sacral osteomyelitis, ESRD, etc. Resting in bed in [facility], currently has her sister and [id number] visiting with her Pain seems improved (seen by Dr Mcnulty) No fever, chills, shortness of breath, chest pain, dizziness, palpitations, nausea vomiting Discussed offloading the wound, and nutrition improvement. Patient reports eating well. Review of Systems Review of Systems: All systems reviewed & are unremarkable except as noted in Subjective Physical Exam Physical Exam: General Appearance:Obese F, chronically ill appearing Head: normocephalic, Atraumatic Eyes: normal inspection, EOMI Neck: supple Respiratory/Chest: Decreased breath sounds, CTA, No accessory muscle use Cardiovascular: S1, S2, No murmur Abdomen/GI:Soft, Non tender, +Colostomy, Bowel sounds present Back:significant sacral wound (see image in EMR) Extremities/Musculoskeletal:normal inspection, + trace LE edema Neurologic/Psych:AAOX3, grossly no focal neurological deficits Skin: normal color, warm, +Sacral wound Results & Data Results & Data ([facility]) Vital Signs (Past 12 Hours) Vital Signs Temp Pulse Resp BP Pulse Ox O2 Del Method O2 Flow Rate 07/11/22 10:30 Nasal Cannula 3 07/11/22 07:49 36.4 C L 85 18 89/53 L 99 Nasal Cannula 4 Medications Administered Current Inpatient Medications Hydrocodone Bitart/Acetaminophen (Hydrocodone/Acetamophen 5/325mg Tab) 1 tab PO Q6H PRN PRN Reason: Pain Stop: 07/16/22 17:11 Last Admin: 07/11/22 09:34 Dose: 1 tab Acetic Acid (Acetic Acid 0.25% Irrig Soln 1000 Ml Plct) 1 appln IR DAILY [facility] Stop: 07/30/22 08:59 Last Admin: 07/11/22 10:30 Dose: 1 appln Brimonidine Tartrate (Brimonidine Tartrate 0.2% 5ml) 1 drops OPB [facility] Stop: 07/30/22 23:39 Last Admin: 07/10/22 20:49 Dose: 1 drops Docusate Sodium (Docusate Sodium 100 Mg Cap) 100 mg PO BID [facility] Stop: 07/31/22 14:44 Last Admin: 07/11/22 10:30 Dose: 100 mg Fentanyl (Fentanyl 12 Mcg/Hr Tdsy) 12 mcg TD Q3D@0900 [facility] Stop: 07/15/22 14:59 Last Admin: 07/10/22 10:38 Dose: 12 mcg Fluticasone Propionate (Fluticasone Propionate Na Spr 16 Gm Btl) 2 sprays NA DAILY [facility] Stop: 07/12/22 22:24 Last Admin: 07/11/22 09:35 Dose: Not Given Gabapentin (Gabapentin 300 Mg Cap) 300 mg PO [facility] Stop: 07/22/22 20:59 Last Admin: 07/10/22 20:49 Dose: 300 mg Promethazine HCl 12.5 mg/ (Sodium Chloride) 50.5 mls @ 202 mls/hr IV Q6H PRN PRN Reason: Nausea And Vomiting Stop: 07/31/22 18:15 Insulin Aspart (Insulin Aspart Per Unit) 0 units SC [facility]; Protocol Stop: 07/16/22 11:29 Last Admin: 07/11/22 09:53 Dose: 19 units Insulin Glargine (Lantus Per Unit Charge) 14 units SQ [facility]; Protocol Stop: 07/17/22 20:59 Last Admin: 07/10/22 20:56 Dose: 14 units Latanoprost (Latanoprost 0.005% Op Soln 2.5 Ml Btl) 1 drops OPB [facility] Stop: 07/17/22 21:04 Last Admin: 07/10/22 20:48 Dose: 1 drops Lorazepam (Lorazepam 0.5 Mg Tab) 0.5 mg PO TID PRN PRN Reason: Anxiety Stop: 08/05/22 05:54 Miscellaneous (Fentanyl Patch Remove & Waste) 1 each N/A Q3D@0859 [facility] Stop: 07/31/22 14:58 Last Admin: 07/10/22 10:39 Dose: 1 each Miscellaneous (Check Fentanyl Patch Placement) 1 each N/A QS [facility] Stop: 07/31/22 15:59 Last Admin: 07/11/22 09:35 Dose: 1 each Nitroglycerin (Nitroglycerin Sl 0.4 Mg/Tab Tab) 0.4 mg SL PRN PRN PRN Reason: Chest Pain Stop: 07/15/22 18:44 Ropinirole HCl (Ropinirole Hcl 0.25 Mg Tablet) 0.25 mg PO HS [facility] Stop: 07/15/22 20:59 Last Admin: 07/10/22 20:49 Dose: 0.25 mg Warfarin Sodium (Warfarin Sod 1 Mg Tab) 1 mg PO DAILY@1600 [facility] Stop: 07/26/22 15:59 Last Admin: 07/10/22 18:39 Dose: 1 mg
[2022-07-11] MEDS: WARFARIN SOD 1 MG TAB PO SCH (16:56)
[2022-07-11] MEDS: MEROPENEM 500 MG in SYRINGE 0 ML IV SCH (18:51)
[2022-07-11] MEDS: GABAPENTIN 300 MG CAP PO SCH (21:10)
[2022-07-11] MEDS: BRIMONIDINE TARTRATE 0.2% 5ML OPB SCH (21:10)
[2022-07-11] MEDS: LATANOPROST 0.005% OP SOLN 2.5 ML BTL OPB SCH (21:11)
[2022-07-11] MEDS: LANTUS PER UNIT CHARGE SQ SCH (21:11)
[2022-07-11] MEDS: rOPINIRole HCL 0.25 MG TABLET PO SCH (21:11)
[2022-07-12] MEDS ORDERED: EPOETIN ALFA 20,000 UNITS/ML VIAL IV SCH (07:00)
[2022-07-12] MEDS ORDERED: HEPARIN SOD (PORCINE) 1000 UNIT/ML IV ONE (07:00)
[2022-07-12] MEDS ORDERED: SODIUM CHLORIDE 0.9% 1000ML 1,000 ML IV PRN (07:00)
[2022-07-12] MEDS: HYDROCODONE/ACETAMOPHEN 5/325MG TAB PO PRN ×2 (08:24→17:07)
[2022-07-12] MEDS: FLUTICASONE PROPIONATE NA SPR 16 GM BTL SCH (08:25)
[2022-07-12] MEDS: CHECK fentaNYL PATCH PLACEMENT SCH ×2 (08:25→17:08)
[2022-07-12] MEDS: ACETIC ACID 0.25% IRRIG SOLN 1000 ML PLCT IR SCH (08:27)
[2022-07-12] MEDS: DOCUSATE SODIUM 100 MG CAP PO SCH ×2 (08:27→21:15)
--- NOTE | 2022-07-12 09:13 | Hospitalist Progress Note ---
Date of Service July 12, 2022 Assessment & Plan (1) Sacral osteomyelitis: Plan: Sacral Wound Osteomyelitis Had Multiple debridement Had wound VAC placed but got dislodged Sacral Wound Grew: Enterococcus VRE on 05/27/2022 Stage IV sacral ulcer with likely underlying osteomyelitis S/P debridement of sacral ulcer with bone biopsy on 05/27/2022 and repeat debridement 06/10 Evaluated by surgery and ID Was on IV cefepime, daptomycin and oral fluconazole Hospitalist discussed with ID, on 06/14. On Daptomycin for Enterococcus facecium VRE - ID suggested daptomycin for 3 more weeks. However, given the extent of her sacral wound; infection control is difficult. Continue aggressive wound care. Discussed with family at bedside; they do not want her to go to [facility]. Would prefer her to go to [facility]. We will continue aggressive wound care daily while inpatient. Appreciate surgery recommendation. Daptomycin course finished Plastic surgery also consulted - appreciate their Input Wound culture growing Pseudomonas,Prevotella ID re-consulted Given low prealbumin; not a good surgical candidate, wound has been difficult to heal Also started on cefepime 06/29/22>>Changed to Meropenem on 07/02/22 Poor Prognosis Continue wound care Intolerance to Envella bed--discontinued Continue IV antibiotics Continue current management 07/07 - discussed again with Dr. Leon, plastic surgery, at the bedside. As per her note - Wound continues to further necrose, including base of wound and periphery. Sacrum completely exposed, sutures visible at wound base. Some granulation noted. Odor has improved. Prealbumin 3, Hgb 8. Discussed with patient the importance of offloading (turning fully side to side to relieve pressure on wound). The wound continues to extend due to lack of offloading, poor protein intake, and further debridement is not going to be of benefit. Goals at this point should be to prevent further extension of the wound or infection. Continue acetic acid for another 2 days, then switch to saline wet to damp dressings. 07/09 - finished 10 days of Acetic acid dressings 07/12 -examined the wound with wound care nurse at the bedside. Plan to contact with surgical team for further recommendations. ? Hemoptysis - resolved ? Pneumonia Continued IV antibiotics as above resumed Coumadin Monitor INR, CBC No hemoptysis today Headache CT head: negative resolved Adjustment disorder with depressed mood Appreciate psychiatrist input and recommendation Vitamin B12, folate and TSH are normal stable Anemia: Chronic anemia in the setting of ESRD and GI losses (reported but not observed) and phlebotomy Was reportedly getting ?EPO injections with HD per Patient - continue EPO per renal No signs of active bleeding Positive FOBT S/P PRBCs during HD Monitor CBC: ~ Hgb 8 New onset atrial fibrillation: On amiodarone 200mg once daily. Supratherapeutic INR--Resolved INR 2.1 monitor INR Resumed Coumadin Stage IV sacral ulcer Radiation necrosis of skin and subcutaneous: Management as above Acute hyponatremia: likely due to sepsis and decrease po intake Sodium level 132 Monitor End-stage renal disease (ESRD): Has been on HD for the past year, per patient Normal HD schedule MWF Continue hemodialysis as per Nephrology Had HD today DM II: Continue insulin per protocol Hypothyroidism: TSH 22, FT4 <0.25 unclear if patient taking medication appropriately TSH normalized with restarting levothyroxine Thrombocytopenia: unclear chronicity likely consumption in sepsis, ESRD, chronic illness no signs of bleeding resolved DVT Px: Coumadin Code Status: DNI/DNR Admission and Anticipated Discharge Date Admission Date: May 14, 2022 Subjective Follow-up for sacral osteomyelitis, ESRD, etc. Patient seen and examined with wound care nurse at the bedside. Pain seems improved (seen by Dr Mcnulty) No fever, chills, shortness of breath, chest pain, dizziness, palpitations, nausea vomiting Discussed offloading the wound, and nutrition improvement. Patient reports eating well. Proper offloading seems to be a continuous issue. Review of Systems Review of Systems: All systems reviewed & are unremarkable except as noted in Subjective Physical Exam Physical Exam: General Appearance:Obese F, chronically ill appearing Head: normocephalic, Atraumatic Eyes: normal inspection, EOMI Neck: supple Respiratory/Chest: Decreased breath sounds, CTA, No accessory muscle use Cardiovascular: S1, S2, No murmur Abdomen/GI:Soft, Non tender, +Colostomy, Bowel sounds present Back:significant sacral wound (see image in EMR) Extremities/Musculoskeletal:normal inspection, + trace LE edema Neurologic/Psych:AAOX3, grossly no focal neurological deficits Skin: normal color, warm, +Sacral wound Results & Data Results & Data ([facility]) Vital Signs (Past 12 Hours) Vital Signs Temp Pulse Resp BP Pulse Ox O2 Del Method O2 Flow Rate 07/12/22 08:40 Room Air 07/12/22 07:51 36.9 C 89 18 98/60 L 98 Nasal Cannula 2 07/11/22 21:20 36.9 C 92 H 18 93/58 L 100 Room Air Laboratory Results 07/12/22 07/12/22 07/12/22 Range/Units 13:01 13:01 08:18 PT 21.6 H (9.0-12.0) Seconds INR 2.1 H (0.9-1.1) Sodium 128 L (136-145) mmol/L Potassium 4.9 (3.5-5.1) mmol/L Chloride 95 L (98-107) mmol/L Carbon Dioxide 24 (21-32) mmol/L Anion Gap 9 (3-11) BUN 54 H (6-23) mg/dl Creatinine 3.64 H (0.6-1.2) mg/dl Est Cr Clr Drug Dosing 14.3 ml/min Est GFR ( Amer) 14.1 ml/min Est GFR (Non-Af Amer) 12.1 ml/min BUN/Creatinine Ratio 14.8 (10-20) Glucose 221 H (70-99(Fasting)) mg/dl POC Glucose 192 H (70-99) mg/dl Calcium 8.9 (8.5-10.1) mg/dl 07/11/22 07/11/22 Range/Units 20:44 16:59 PT (9.0-12.0) Seconds INR (0.9-1.1) Sodium (136-145) mmol/L Potassium (3.5-5.1) mmol/L Chloride (98-107) mmol/L Carbon Dioxide (21-32) mmol/L Anion Gap (3-11) BUN (6-23) mg/dl Creatinine (0.6-1.2) mg/dl Est Cr Clr Drug Dosing ml/min Est GFR ( Amer) ml/min Est GFR (Non-Af Amer) ml/min BUN/Creatinine Ratio (10-20) Glucose (70-99(Fasting)) mg/dl POC Glucose 120 H 154 H (70-99) mg/dl Calcium (8.5-10.1) mg/dl Medications Administered Current Inpatient Medications Hydrocodone Bitart/Acetaminophen (Hydrocodone/Acetamophen 5/325mg Tab) 1 tab PO Q6H PRN PRN Reason: Pain Stop: 07/16/22 17:11 Last Admin: 07/12/22 08:24 Dose: 1 tab Acetic Acid (Acetic Acid 0.25% Irrig Soln 1000 Ml Plct) 1 appln IR DAILY [facility] Stop: 07/30/22 08:59 Last Admin: 07/12/22 08:27 Dose: 1 appln Brimonidine Tartrate (Brimonidine Tartrate 0.2% 5ml) 1 drops OPB [facility] Stop: 07/30/22 23:39 Last Admin: 07/11/22 21:10 Dose: 1 drops Docusate Sodium (Docusate Sodium 100 Mg Cap) 100 mg PO BID [facility] Stop: 07/31/22 14:44 Last Admin: 07/12/22 08:27 Dose: 100 mg Epoetin Felipe (Epoetin Felipe 20,000 Units/Ml Vial) 20,000 units IV Mo@0700 [facility] Stop: 07/12/22 16:00 Fentanyl (Fentanyl 12 Mcg/Hr Tdsy) 12 mcg TD Q3D@0900 [facility] Stop: 07/15/22 14:59 Last Admin: 07/10/22 10:38 Dose: 12 mcg Fluticasone Propionate (Fluticasone Propionate Na Spr 16 Gm Btl) 2 sprays NA DAILY [facility] Stop: 07/12/22 22:24 Last Admin: 07/12/22 08:25 Dose: 2 sprays Gabapentin (Gabapentin 300 Mg Cap) 300 mg PO [facility] Stop: 07/22/22 20:59 Last Admin: 07/11/22 21:10 Dose: 300 mg Promethazine HCl 12.5 mg/ (Sodium Chloride) 50.5 mls @ 202 mls/hr IV Q6H PRN PRN Reason: Nausea And Vomiting Stop: 07/31/22 18:15 Sodium Chloride (Nss 1000ml) 1,000 mls @ 0 mls/hr IV .Q0M PRN PRN Reason: For Hemodialysis Use ONLY Stop: 07/12/22 12:59 Meropenem 500 mg/ Syringe 10 mls @ 2 mls/min IV Q24H [facility]; Protocol Stop: 07/15/22 17:59 Last Admin: 07/11/22 18:51 Dose: 2 mls/min Insulin Aspart (Insulin Aspart Per Unit) 0 units SC [facility]; Protocol Stop: 07/16/22 11:29 Last Admin: 07/11/22 21:11 Dose: Not Given Insulin Glargine (Lantus Per Unit Charge) 14 units SQ [facility]; Protocol Stop: 07/17/22 20:59 Last Admin: 07/11/22 21:11 Dose: 14 units Latanoprost (Latanoprost 0.005% Op Soln 2.5 Ml Btl) 1 drops OPB [facility] Stop: 07/17/22 21:04 Last Admin: 07/11/22 21:11 Dose: 1 drops Lorazepam (Lorazepam 0.5 Mg Tab) 0.5 mg PO TID PRN PRN Reason: Anxiety Stop: 08/05/22 05:54 Miscellaneous (Fentanyl Patch Remove & Waste) 1 each N/A Q3D@0859 [facility] Stop: 07/31/22 14:58 Last Admin: 07/10/22 10:39 Dose: 1 each Miscellaneous (Check Fentanyl Patch Placement) 1 each N/A QS [facility] Stop: 07/31/22 15:59 Last Admin: 07/12/22 08:25 Dose: 1 each Nitroglycerin (Nitroglycerin Sl 0.4 Mg/Tab Tab) 0.4 mg SL PRN PRN PRN Reason: Chest Pain Stop: 07/15/22 18:44 Ropinirole HCl (Ropinirole Hcl 0.25 Mg Tablet) 0.25 mg PO [facility] Stop: 07/15/22 20:59 Last Admin: 07/11/22 21:11 Dose: 0.25 mg Warfarin Sodium (Warfarin Sod 1 Mg Tab) 1 mg PO DAILY@1600 [facility] Stop: 07/26/22 15:59 Last Admin: 07/11/22 16:56 Dose: 1 mg
[2022-07-12] MEDS: INSULIN ASPART PER UNIT SC SCH ×4 (09:25→21:32)
[2022-07-12] MEDS ORDERED: MIDODRINE HCL 10 MG TAB PO STA (11:35)
[2022-07-12 13:39] LABS: INR 2.1 (0.9-1.1); Prothrombin Time 21.6 Seconds (9.0-12.0)
[2022-07-12 13:59] LABS: BUN Creatinine Ratio 14.8 (10-20); Calcium 8.9 mg/dl (8.5-10.1); Creatinine Clr Calc Pharmacy 14.3 ml/min; Est GFR (African American) 14.1 ml/min; Est GFR (Non-African American) 12.1 ml/min; Potassium 4.9 mmol/L (3.5-5.1)
[2022-07-12] MEDS: WARFARIN SOD 1 MG TAB PO SCH (17:07)
[2022-07-12] MEDS: MEROPENEM 500 MG in SYRINGE 0 ML IV SCH (17:08)
[2022-07-12] MEDS: LATANOPROST 0.005% OP SOLN 2.5 ML BTL OPB SCH (20:59)
[2022-07-12] MEDS: BRIMONIDINE TARTRATE 0.2% 5ML OPB SCH (21:13)
[2022-07-12] MEDS: LORazepam 0.5 MG TAB PO PRN (21:15)
[2022-07-12] MEDS: rOPINIRole HCL 0.25 MG TABLET PO SCH (21:17)
[2022-07-12] MEDS: GABAPENTIN 300 MG CAP PO SCH (21:17)
[2022-07-12] MEDS: LANTUS PER UNIT CHARGE SQ SCH (21:33)
[2022-07-13] MEDS: CHECK fentaNYL PATCH PLACEMENT SCH ×3 (00:01→17:08)
[2022-07-13] MEDS: HYDROCODONE/ACETAMOPHEN 5/325MG TAB PO PRN ×3 (06:18→22:07)
[2022-07-13 08:33] LABS: BUN Creatinine Ratio 11.7 (10-20); Calcium 8.5 mg/dl (8.5-10.1); Creatinine Clr Calc Pharmacy 23.4 ml/min; Est GFR (African American) 25.6 ml/min; Est GFR (Non-African American) 22.1 ml/min
--- NOTE | 2022-07-13 09:14 | Hospitalist Progress Note ---
Date of Service July 13, 2022 Assessment & Plan (1) Sacral osteomyelitis: Plan: Sacral Wound Osteomyelitis Had Multiple debridement Had wound VAC placed but got dislodged Sacral Wound Grew: Enterococcus VRE on 05/27/2022 Stage IV sacral ulcer with likely underlying osteomyelitis S/P debridement of sacral ulcer with bone biopsy on 05/27/2022 and repeat debridement 06/10 Evaluated by surgery and ID Was on IV cefepime, daptomycin and oral fluconazole Hospitalist discussed with ID, on 06/14. On Daptomycin for Enterococcus facecium VRE - ID suggested daptomycin for 3 more weeks. However, given the extent of her sacral wound; infection control is difficult. Continue aggressive wound care. Discussed with family at bedside; they do not want her to go to [facility]. Would prefer her to go to [facility]. We will continue aggressive wound care daily while inpatient. Appreciate surgery recommendation. Daptomycin course finished Plastic surgery also consulted - appreciate their Input Wound culture growing Pseudomonas,Prevotella ID re-consulted Given low prealbumin; not a good surgical candidate, wound has been difficult to heal Also started on cefepime 06/29/22>>Changed to Meropenem on 07/02/22 Poor Prognosis Continue wound care Intolerance to Envella bed--discontinued Continue IV antibiotics Continue current management 07/07 - discussed again with Dr. Leon, plastic surgery, at the bedside. As per her note - Wound continues to further necrose, including base of wound and periphery. Sacrum completely exposed, sutures visible at wound base. Some granulation noted. Odor has improved. Prealbumin 3, Hgb 8. Discussed with patient the importance of offloading (turning fully side to side to relieve pressure on wound). The wound continues to extend due to lack of offloading, poor protein intake, and further debridement is not going to be of benefit. Goals at this point should be to prevent further extension of the wound or infection. Continue acetic acid for another 2 days, then switch to saline wet to damp dressings. 07/09 - finished 10 days of Acetic acid dressings 07/12 -examined the wound with wound care nurse at the bedside. Plan to contact with surgical team for further recommendations. ? Hemoptysis - resolved ? Pneumonia Continued IV antibiotics as above resumed Coumadin Monitor INR, CBC No hemoptysis today Headache CT head: negative resolved Adjustment disorder with depressed mood Appreciate psychiatrist input and recommendation Vitamin B12, folate and TSH are normal stable Anemia: Chronic anemia in the setting of ESRD and GI losses (reported but not observed) and phlebotomy Was reportedly getting ?EPO injections with HD per Patient - continue EPO per renal No signs of active bleeding Positive FOBT S/P PRBCs during HD Monitor CBC: ~ Hgb 8 New onset atrial fibrillation: On amiodarone 200mg once daily. Supratherapeutic INR--Resolved INR 2.1 monitor INR Resumed Coumadin Stage IV sacral ulcer Radiation necrosis of skin and subcutaneous: Management as above Acute hyponatremia: likely due to sepsis and decrease po intake Sodium level 132 Monitor End-stage renal disease (ESRD): Has been on HD for the past year, per patient Normal HD schedule MWF Continue hemodialysis as per Nephrology DM II: Continue insulin per protocol Hypothyroidism: TSH 22, FT4 <0.25 unclear if patient taking medication appropriately TSH normalized with restarting levothyroxine Thrombocytopenia: unclear chronicity likely consumption in sepsis, ESRD, chronic illness no signs of bleeding resolved DVT Px: Coumadin Code Status: DNI/DNR Admission and Anticipated Discharge Date Admission Date: May 14, 2022 Subjective Follow-up for sacral osteomyelitis, ESRD, etc. Patient seen and examined with wound care nurse at the bedside yesterday. Also discussed w/ Dr. Leon (plastics) last week at the bedside. Currently laying in bed, in no acute distress. Comfortable. Pain seems improved (seen by Dr Mcnulty). No fever, chills, shortness of breath, chest pain, dizziness, palpitations, nausea vomiting Discussed offloading the wound, and nutrition improvement. Patient reports eating well. Proper offloading seems to be a continuous issue. Review of Systems Review of Systems: All systems reviewed & are unremarkable except as noted in Subjective Physical Exam Physical Exam: General Appearance:Obese F, chronically ill appearing Head: normocephalic, Atraumatic Eyes: normal inspection, EOMI Neck: supple Respiratory/Chest: Decreased breath sounds, CTA, No accessory muscle use Cardiovascular: S1, S2, No murmur Abdomen/GI:Soft, Non tender, +Colostomy, Bowel sounds present Back:significant sacral wound (see image in EMR) Extremities/Musculoskeletal:normal inspection, + trace LE edema Neurologic/Psych:AAOX3, grossly no focal neurological deficits Skin: normal color, warm, +Sacral wound Results & Data Results & Data ([place]) Vital Signs (Past 12 Hours) Vital Signs Temp Pulse Resp BP Pulse Ox O2 Del Method O2 Flow Rate 07/13/22 08:02 Nasal Cannula 2 07/13/22 07:33 36.8 C 83 16 92/57 L 100 Nasal Cannula 2 07/13/22 03:27 Room Air 07/12/22 22:00 36.4 C L 88 18 93/55 L 100 Nasal Cannula 2 Laboratory Results 07/13/22 07/13/22 07/12/22 Range/Units 08:12 07:48 21:03 PT (9.0-12.0) Seconds INR (0.9-1.1) Sodium 133 L (136-145) mmol/L Potassium 4.0 (3.5-5.1) mmol/L Chloride 101 (98-107) mmol/L Carbon Dioxide 25 (21-32) mmol/L Anion Gap 7 (3-11) BUN 26 H D (6-23) mg/dl Creatinine 2.22 H D (0.6-1.2) mg/dl Est Cr Clr Drug Dosing 23.4 ml/min Est GFR ( Amer) 25.6 ml/min Est GFR (Non-Af Amer) 22.1 ml/min BUN/Creatinine Ratio 11.7 (10-20) Glucose 154 H (70-99(Fasting)) mg/dl POC Glucose 152 H 295 H (70-99) mg/dl Calcium 8.5 (8.5-10.1) mg/dl 07/12/22 07/12/22 07/12/22 Range/Units 17:23 13:01 13:01 PT 21.6 H (9.0-12.0) Seconds INR 2.1 H (0.9-1.1) Sodium 128 L (136-145) mmol/L Potassium 4.9 (3.5-5.1) mmol/L Chloride 95 L (98-107) mmol/L Carbon Dioxide 24 (21-32) mmol/L Anion Gap 9 (3-11) BUN 54 H (6-23) mg/dl Creatinine 3.64 H (0.6-1.2) mg/dl Est Cr Clr Drug Dosing 14.3 ml/min Est GFR ( Amer) 14.1 ml/min Est GFR (Non-Af Amer) 12.1 ml/min BUN/Creatinine Ratio 14.8 (10-20) Glucose 221 H (70-99(Fasting)) mg/dl POC Glucose 177 H (70-99) mg/dl Calcium 8.9 (8.5-10.1) mg/dl Medications Administered Current Inpatient Medications Hydrocodone Bitart/Acetaminophen (Hydrocodone/Acetamophen 5/325mg Tab) 1 tab PO Q6H PRN PRN Reason: Pain Stop: 07/16/22 17:11 Last Admin: 07/13/22 06:18 Dose: 1 tab Brimonidine Tartrate (Brimonidine Tartrate 0.2% 5ml) 1 drops OPB [facility] Stop: 07/30/22 23:39 Last Admin: 07/12/22 21:13 Dose: 1 drops Docusate Sodium (Docusate Sodium 100 Mg Cap) 100 mg PO BID REPLACED BY [facility] Stop: 07/31/22 14:44 Last Admin: 07/12/22 21:15 Dose: 100 mg Fentanyl (Fentanyl 12 Mcg/Hr Tdsy) 12 mcg TD Q3D@0900 REPLACED BY [facility] Stop: 07/15/22 14:59 Last Admin: 07/10/22 10:38 Dose: 12 mcg Gabapentin (Gabapentin 300 Mg Cap) 300 mg PO [facility] Stop: 07/22/22 20:59 Last Admin: 07/12/22 21:17 Dose: 300 mg Promethazine HCl 12.5 mg/ (Sodium Chloride) 50.5 mls @ 202 mls/hr IV Q6H PRN PRN Reason: Nausea And Vomiting Stop: 07/31/22 18:15 Meropenem 500 mg/ Syringe 10 mls @ 2 mls/min IV Q24H REPLACED BY [facility]; Protocol Stop: 07/15/22 17:59 Last Admin: 07/12/22 17:08 Dose: 2 mls/min Insulin Aspart (Insulin Aspart Per Unit) 0 units SC [facility]; Protocol Stop: 07/16/22 11:29 Last Admin: 07/12/22 21:32 Dose: 11 units Insulin Glargine (Lantus Per Unit Charge) 14 units SQ [facility]; Protocol Stop: 07/17/22 20:59 Last Admin: 07/12/22 21:33 Dose: 14 units Latanoprost (Latanoprost 0.005% Op Soln 2.5 Ml Btl) 1 drops OPB [facility] Stop: 07/17/22 21:04 Last Admin: 07/12/22 20:59 Dose: 1 drops Lorazepam (Lorazepam 0.5 Mg Tab) 0.5 mg PO TID PRN PRN Reason: Anxiety Stop: 08/05/22 05:54 Last Admin: 07/12/22 21:15 Dose: 0.5 mg Miscellaneous (Fentanyl Patch Remove & Waste) 1 each N/A Q3D@0859 REPLACED BY [facility] Stop: 07/31/22 14:58 Last Admin: 07/10/22 10:39 Dose: 1 each Miscellaneous (Check Fentanyl Patch Placement) 1 each N/A QS REPLACED BY [facility] Stop: 07/31/22 15:59 Last Admin: 07/13/22 00:01 Dose: 1 each Nitroglycerin (Nitroglycerin Sl 0.4 Mg/Tab Tab) 0.4 mg SL PRN PRN PRN Reason: Chest Pain Stop: 07/15/22 18:44 Ropinirole HCl (Ropinirole Hcl 0.25 Mg Tablet) 0.25 mg PO [facility] Stop: 07/15/22 20:59 Last Admin: 07/12/22 21:17 Dose: 0.25 mg Warfarin Sodium (Warfarin Sod 1 Mg Tab) 1 mg PO DAILY@1600 REPLACED BY [facility] Stop: 07/26/22 15:59 Last Admin: 07/12/22 17:07 Dose: 1 mg
[2022-07-13] MEDS: INSULIN ASPART PER UNIT SC SCH ×4 (09:42→22:09)
[2022-07-13] MEDS: DOCUSATE SODIUM 100 MG CAP PO SCH ×2 (09:43→22:06)
[2022-07-13] MEDS: fentaNYL 12 MCG/HR TDSY TD SCH (09:43)
[2022-07-13] MEDS ORDERED: EPOETIN ALFA 20,000 UNITS/ML VIAL IV SCH (12:00)
[2022-07-13] MEDS: MEROPENEM 500 MG in SYRINGE 0 ML IV SCH (17:08)
[2022-07-13] MEDS: WARFARIN SOD 1 MG TAB PO SCH (17:35)
[2022-07-13] MEDS ORDERED: ALBUMIN 25% 100 mL 25 GM/100 ML VIAL IV ONE (19:24)
[2022-07-13] MEDS: LATANOPROST 0.005% OP SOLN 2.5 ML BTL OPB SCH (22:04)
[2022-07-13] MEDS: GABAPENTIN 300 MG CAP PO SCH (22:06)
[2022-07-13] MEDS: rOPINIRole HCL 0.25 MG TABLET PO SCH (22:06)
[2022-07-13] MEDS: LORazepam 0.5 MG TAB PO PRN (22:07)
[2022-07-13] MEDS: LANTUS PER UNIT CHARGE SQ SCH (22:09)
[2022-07-13] MEDS: BRIMONIDINE TARTRATE 0.2% 5ML OPB SCH (22:20)
[2022-07-14] MEDS: CHECK fentaNYL PATCH PLACEMENT SCH ×4 (00:01→23:56)
[2022-07-14] MEDS ORDERED: SODIUM CHLORIDE 0.9% 1000ML 1,000 ML IV PRN (07:00)
[2022-07-14] MEDS ORDERED: MIDODRINE HCL 10 MG TAB PO ONE (08:00)
[2022-07-14] MEDS: INSULIN ASPART PER UNIT SC SCH ×4 (09:11→21:19)
[2022-07-14] MEDS: HYDROCODONE/ACETAMOPHEN 5/325MG TAB PO PRN ×2 (09:15→16:10)
[2022-07-14] MEDS: DOCUSATE SODIUM 100 MG CAP PO SCH ×2 (09:15→21:37)
[2022-07-14] MEDS: LORazepam 0.5 MG TAB PO PRN ×2 (09:15→16:11)
[2022-07-14 10:00] LABS: Hematocrit (blood only) 29.3 % (34.1-44.9); Mean Corpuscular Hemoglobin 31.8 pg (25.0-34.0); Mean Corpuscular Hgb Conc 30.7 g/dL (32.0-36.0); Mean Corpuscular Volume 103.5 fL (80.0-100.0); Mean Platelet Volume 10.9 fL (9.4-12.3); Platelet Count 235 K/uL (130-400); RDW Coefficient of Variation 22.2 % (11.5-14.5); RDW Standard Deviation 84.2 fL (36.4-46.3); Red Blood Count 2.83 M/uL (3.93-5.22); White Blood Count 9.26 K/ul (4.8-10.8)
[2022-07-14 10:11] LABS: Prothrombin Time 20.7 Seconds (9.0-12.0)
[2022-07-14 10:23] LABS: BUN Creatinine Ratio 13.3 (10-20); C Reactive Protein 12.33 mg/dl (0-0.5); Calcium 8.9 mg/dl (8.5-10.1); Creatinine Clr Calc Pharmacy 16.1 ml/min; Est GFR (African American) 16.2 ml/min; Potassium 4.2 mmol/L (3.5-5.1)
[2022-07-14] MEDS ORDERED: EPOETIN ALFA 20,000 UNITS/ML VIAL IV SCH (12:00)
--- NOTE | 2022-07-14 12:03 | Dialysis Progress Note ---
Date of Service July 14, 2022 Assessment & Plan Admission and Anticipated Discharge Date Admission Date: May 14, 2022 Subjective Assessment & Plan (1) End-stage renal disease (ESRD): Plan: HD today w/ goal 3 L off > with midodrine Much less edema than before. hard to take UF with super low BP. Subjective Pt seen on HD No fever, chills, shortness of breath, chest pain, dizziness, palpitations, nausea vomiting Has been thinking of withdrawing Tx , Review of Systems Review of Systems: NO sob Bilateral pedal edema , improved. Physical Exam Physical Exam: General Appearance: Comfortable, No apparent distress Head: normocephalic, Atraumatic Eyes: normal inspection, EOMI Neck: supple, Trachea midline Respiratory/Chest: Decreased breath sounds, CTA, No accessory muscle use Cardiovascular: S1, S2, No murmur Abdomen/GI:Soft, abd distended, Non tender, Bowel sounds present Extremities/Musculoskeletal:normal inspection, +3 B/L LE edema Neurologic/Psych:AAOX3, grossly no focal neurological deficits Skin: normal color, warm Results & Data ([facility]) Vital Signs (Past 12 Hours) Vital Signs Temp Pulse Pulse Pulse Resp BP BP 07/14/22 11:30 91 H 74/48 L 07/14/22 11:00 86 75/32 L 07/14/22 10:30 90 84/41 L 07/14/22 10:00 70 128/90 07/14/22 09:45 88 105/70 07/14/22 09:33 36.5 C 83 07/14/22 08:15 07/14/22 07:22 36.5 C 81 16 87/47 L Pulse Ox O2 Del Method O2 Flow Rate 07/14/22 11:30 07/14/22 11:00 07/14/22 10:30 07/14/22 10:00 07/14/22 09:45 07/14/22 09:33 07/14/22 08:15 Nasal Cannula 2 07/14/22 07:22 99 Nasal Cannula 2
--- NOTE | 2022-07-14 13:09 | Hospitalist Progress Note ---
Date of Service July 14, 2022 Assessment & Plan (1) Sacral osteomyelitis: Plan: She has coccygeal osteomyelitis s/p diverting loop colostomy on 04/19/22 and I&D with coccygectomy on 04/20/22. She has a Stage IV sacral ulcer and a h/o rectal cancer s/p chemoradiation 20 yrs ago. She has had multiple surgical debridements this admission, and had a wound VAC placed but it was dislodged. Sacral wound grew Enterococcus VRE on 05/27/2022. A stage IV sacral ulcer is present with likely underlying osteomyelitis. She was on IV Dapto mycin cefepime and oral fluconazole. Hospitalist discussed with ID on 06/14 suggesting daptomycin for 3 more weeks. Notably given the extent of her sacral wound infection control is difficult. Plans for LTAC. She has completed daptomycin course at this time. Wound culture was repeated growing Pseudomonas and Prevotella. ID was reconsulted. She was started on cefepime 06/29/2022 which was changed to meropenem on 07/02/2022. Wound care is continued (2) Ulcer of sacral region, stage 4: Plan: Plan as above. (3) PAF (paroxysmal atrial fibrillation): Plan: On amiodarone, INR is therapeutic on Coumadin. (4) Anemia: Plan: Anemia of chronic disease and CKD. Procrit per nephrology (5) End-stage renal disease (ESRD): Plan: Continues on hemodialysis, per nephro. (6) DM type 2 with diabetic peripheral neuropathy: Plan: Fasting glucose is consistently uncontrolled, increase glargine to twice daily. Continue NovoLog with sliding scale coverage and carb coverage. (7) Hypothyroid: Plan: Chronic, stable, continue Synthroid per home regimen. (8) DVT prophylaxis: Plan: Coumadin therapeutic DNR/DNI Disposition-LTAC Anabel Escobar DO [facility] hospitalist Admission and Anticipated Discharge Date Admission Date: May 14, 2022 Subjective 67-year-old female presented with sacral osteomyelitis Reports intermittent pain Reports she is intermittently getting out of bed Hypotension noted with hemodialysis limiting ultrafiltration. Reports some fatigue and feeling worn out-had hemodialysis earlier today. Denies chest pain or shortness of breath or other issues. Did make mention that when nurses are putting alcohol on her heels it is burning her Also she declined waffle boots. Review of Systems Review of Systems: All systems reviewed negative except as indicated above. Physical Exam Physical Exam: CONSTITUTIONAL: obese, vitals as above, generally NAD EYES: normal conjunctivae, no scleral icterus ENT: external ear and nose normal, MMM NECK: trachea midline, RESPIRATORY: clear to auscultation bilaterally, no crackles, rales or wheezes, normal respiratory effort CARDIOVASCULAR: regular rate and rhythm, S1 and 2 heard without murmurs, gallops or rubs, no JVD, trace peripheral edema in bilateral lower extremities. CHEST: inspection of chest reveals a HD catheter in right anterior chest GASTROINTESTINAL: soft, nontender, ND, +colostomy MUSCULOSKELETAL: generalized weakness, head is normocephalic and atraumatic, SKIN: warm and dry, sacral ulcer was not viewed because of patient's limited mobility. NEUROLOGIC: CN 2-12 grossly intact, no sensory deficit, normal cognition, normal speech, no tremor PSYCHIATRIC: alert cooperative and oriented to person, place and time. Results & Data Results & Data ([facility]) Vital Signs (Past 12 Hours) Vital Signs Temp Pulse Pulse Pulse Resp BP BP 07/14/22 12:30 91 H 74/49 L 07/14/22 12:00 87 72/30 L 07/14/22 11:30 91 H 74/48 L 07/14/22 11:00 86 75/32 L 07/14/22 10:30 90 84/41 L 07/14/22 10:00 70 128/90 07/14/22 09:45 88 105/70 07/14/22 09:33 36.5 C 83 07/14/22 08:15 07/14/22 07:22 36.5 C 81 16 87/47 L Pulse Ox O2 Del Method O2 Flow Rate 07/14/22 12:30 07/14/22 12:00 07/14/22 11:30 07/14/22 11:00 07/14/22 10:30 07/14/22 10:00 07/14/22 09:45 07/14/22 09:33 07/14/22 08:15 Nasal Cannula 2 07/14/22 07:22 99 Nasal Cannula 2 Laboratory Results Short CBC 07/14/22 Range/Units 09:48 WBC 9.26 (4.8-10.8) K/ul Hgb 9.0 L (12.0-16.0) g/dl Hct 29.3 L (34.1-44.9) % Plt Count 235 (130-400) K/uL BMP 07/14/22 09:48 Sodium 132 L Potassium 4.2 Chloride 98 Carbon Dioxide 24 BUN 43 H Creatinine 3.23 H D Glucose 272 H Calcium 8.9 Medications Administered Current Inpatient Medications Hydrocodone Bitart/Acetaminophen (Hydrocodone/Acetamophen 5/325mg Tab) 1 tab PO Q6H PRN PRN Reason: Pain Stop: 07/16/22 17:11 Last Admin: 07/14/22 09:15 Dose: 1 tab Brimonidine Tartrate (Brimonidine Tartrate 0.2% 5ml) 1 drops OPB [facility] Stop: 07/30/22 23:39 Last Admin: 07/13/22 22:20 Dose: 1 drops Docusate Sodium (Docusate Sodium 100 Mg Cap) 100 mg PO BID [facility] Stop: 07/31/22 14:44 Last Admin: 07/14/22 09:15 Dose: 100 mg Epoetin Felipe (Epoetin Felipe 20,000 Units/Ml Vial) 20,000 units IV TODAY@1200 [facility] Stop: 07/14/22 16:00 Last Admin: 07/14/22 10:26 Dose: 20,000 units Fentanyl (Fentanyl 12 Mcg/Hr Tdsy) 12 mcg TD Q3D@0900 [facility] Stop: 07/15/22 14:59 Last Admin: 07/13/22 09:43 Dose: 12 mcg Gabapentin (Gabapentin 300 Mg Cap) 300 mg PO [facility] Stop: 07/22/22 20:59 Last Admin: 07/13/22 22:06 Dose: 300 mg Promethazine HCl 12.5 mg/ (Sodium Chloride) 50.5 mls @ 202 mls/hr IV Q6H PRN PRN Reason: Nausea And Vomiting Stop: 07/31/22 18:15 Meropenem 500 mg/ Syringe 10 mls @ 2 mls/min IV Q24H [facility]; Protocol Stop: 07/21/22 23:59 Last Admin: 07/13/22 17:08 Dose: 2 mls/min Insulin Aspart (Insulin Aspart Per Unit) 0 units SC [facility]; Protocol Stop: 07/16/22 11:29 Last Admin: 07/14/22 09:11 Dose: 19 units Insulin Glargine (Lantus Per Unit Charge) 14 units SQ HS [facility]; Protocol Stop: 07/17/22 20:59 Last Admin: 07/13/22 22:09 Dose: 14 units Latanoprost (Latanoprost 0.005% Op Soln 2.5 Ml Btl) 1 drops OPB HS [facility] Stop: 07/17/22 21:04 Last Admin: 07/13/22 22:04 Dose: 1 drops Lorazepam (Lorazepam 0.5 Mg Tab) 0.5 mg PO TID PRN PRN Reason: Anxiety Stop: 08/05/22 05:54 Last Admin: 07/14/22 09:15 Dose: 0.5 mg Miscellaneous (Fentanyl Patch Remove & Waste) 1 each N/A Q3D@0859 [facility] Stop: 07/31/22 14:58 Last Admin: 07/13/22 09:46 Dose: 1 each Miscellaneous (Check Fentanyl Patch Placement) 1 each N/A QS [facility] Stop: 07/31/22 15:59 Last Admin: 07/14/22 08:34 Dose: 1 each Nitroglycerin (Nitroglycerin Sl 0.4 Mg/Tab Tab) 0.4 mg SL PRN PRN PRN Reason: Chest Pain Stop: 07/15/22 18:44 Ropinirole HCl (Ropinirole Hcl 0.25 Mg Tablet) 0.25 mg PO [facility] Stop: 07/15/22 20:59 Last Admin: 07/13/22 22:06 Dose: 0.25 mg Warfarin Sodium (Warfarin Sod 1 Mg Tab) 1 mg PO DAILY@1600 [facility] Stop: 07/26/22 15:59 Last Admin: 07/13/22 17:35 Dose: 1 mg
[2022-07-14] MEDS: WARFARIN SOD 1 MG TAB PO SCH (16:05)
[2022-07-14] MEDS: MEROPENEM 500 MG in SYRINGE 0 ML IV SCH (17:32)
[2022-07-14] MEDS: BRIMONIDINE TARTRATE 0.2% 5ML OPB SCH (21:18)
[2022-07-14] MEDS: LATANOPROST 0.005% OP SOLN 2.5 ML BTL OPB SCH (21:18)
[2022-07-14] MEDS: LANTUS PER UNIT CHARGE SQ SCH (21:19)
[2022-07-14] MEDS: GABAPENTIN 300 MG CAP PO SCH (21:37)
[2022-07-14] MEDS: rOPINIRole HCL 0.25 MG TABLET PO SCH (21:37)
[2022-07-15] MEDS: HYDROCODONE/ACETAMOPHEN 5/325MG TAB PO PRN ×3 (01:44→16:13)
[2022-07-15] MEDS: CHECK fentaNYL PATCH PLACEMENT SCH ×2 (08:45→17:56)
[2022-07-15] MEDS: DOCUSATE SODIUM 100 MG CAP PO SCH ×2 (08:47→21:58)
[2022-07-15] MEDS: INSULIN ASPART PER UNIT SC SCH ×4 (09:20→21:08)
[2022-07-15] MEDS: LORazepam 0.5 MG TAB PO PRN ×2 (09:26→16:13)
[2022-07-15] MEDS: LANTUS PER UNIT CHARGE SQ SCH ×2 (11:25→21:58)
--- NOTE | 2022-07-15 14:05 | Hospitalist Progress Note ---
Date of Service July 15, 2022 Assessment & Plan (1) Sacral osteomyelitis: Plan: She has coccygeal osteomyelitis s/p diverting loop colostomy on 04/19/22 and I&D with coccygectomy on 04/20/22. She has a Stage IV sacral ulcer and a h/o rectal cancer s/p chemoradiation 20 yrs ago. She has had multiple surgical debridements this admission, and had a wound VAC placed but it was dislodged. Sacral wound grew Enterococcus VRE on 05/27/2022. A stage IV sacral ulcer is present with likely underlying osteomyelitis. She was on IV Dapto mycin cefepime and oral fluconazole. Hospitalist discussed with ID on 06/14 suggesting daptomycin for 3 more weeks. Notably given the extent of her sacral wound infection control is difficult. Plans for LTAC. She has completed daptomycin course at this time. Wound culture was repeated growing Pseudomonas and Prevotella. ID was reconsulted. She was started on cefepime 06/29/2022 which was changed to meropenem on 07/02/2022. Wound care is continued with daily dressing changes. Acetic acid washes were held on 07/12 for a break. Wound care nurse following. (2) Ulcer of sacral region, stage 4: Plan: Plan as above. (3) PAF (paroxysmal atrial fibrillation): Plan: On amiodarone, INR is therapeutic on Coumadin. (4) Anemia: Plan: Anemia of chronic disease and CKD. Procrit per nephrology (5) End-stage renal disease (ESRD): Plan: Continues on hemodialysis, per nephro. (6) DM type 2 with diabetic peripheral neuropathy: Plan: Fasting glucose is consistently uncontrolled, increase glargine to twice daily. Continue NovoLog with sliding scale coverage and carb coverage. (7) Hypothyroid: Plan: Chronic, stable, continue Synthroid per home regimen. (8) DVT prophylaxis: Plan: Coumadin therapeutic DNR/DNI Disposition-LTAC DO Cynthia Corona hospitalist Admission and Anticipated Discharge Date Admission Date: May 14, 2022 Subjective 67-year-old female presented with sacral osteomyelitis No issues at this time Denies any pain Concerning wound culture from 07/12 with meropenem-resistant pseudomonas growing Spoke with Dr. Roland from ID who mentioned for me to contact ID dr ruiz [facility] in the morning. Review of Systems Review of Systems: All systems reviewed negative except as indicated above. Physical Exam Physical Exam: CONSTITUTIONAL: obese, vitals as above, generally NAD EYES: normal conjunctivae, no scleral icterus ENT: external ear and nose normal, MMM NECK: trachea midline, RESPIRATORY: clear to auscultation bilaterally, no crackles, rales or wheezes, normal respiratory effort CARDIOVASCULAR: regular rate and rhythm, S1 and 2 heard without murmurs, gallops or rubs, no JVD, trace peripheral edema in bilateral lower extremities. CHEST: inspection of chest reveals a HD catheter in right anterior chest GASTROINTESTINAL: soft, nontender, ND, +colostomy MUSCULOSKELETAL: generalized weakness, head is normocephalic and atraumatic, SKIN: warm and dry, sacral ulcer was not viewed because of patient's limited mobility. NEUROLOGIC: CN 2-12 grossly intact, no sensory deficit, normal cognition, normal speech, no tremor PSYCHIATRIC: alert cooperative and oriented to person, place and time. Results & Data Results & Data ([facility]) Vital Signs (Past 12 Hours) Vital Signs Temp Pulse Resp BP Pulse Ox O2 Del Method O2 Flow Rate 07/15/22 07:38 36.8 C 83 18 84/53 L 100 Nasal Cannula 2 Medications Administered Current Inpatient Medications Hydrocodone Bitart/Acetaminophen (Hydrocodone/Acetamophen 5/325mg Tab) 1 tab PO Q6H PRN PRN Reason: Pain Stop: 07/16/22 17:11 Last Admin: 07/15/22 09:26 Dose: 1 tab Acetic Acid (Acetic Acid 0.25% Irrig Soln 1000 Ml Plct) 1 appln IR DAILY [facility] Stop: 08/14/22 12:44 Brimonidine Tartrate (Brimonidine Tartrate 0.2% 5ml) 1 drops OPB HS [facility] Stop: 07/30/22 23:39 Last Admin: 07/14/22 21:18 Dose: 1 drops Collagenase (Collagenase Oint 30 Gm Tube) 1 appln EXT DAILY [facility] Stop: 08/14/22 12:44 Docusate Sodium (Docusate Sodium 100 Mg Cap) 100 mg PO BID [facility] Stop: 07/31/22 14:44 Last Admin: 07/15/22 08:47 Dose: 100 mg Epoetin Felipe (Epoetin Felipe 20,000 Units/Ml Vial) 20,000 units IV TODAY@0800 [facility] Stop: 07/16/22 18:00 Fentanyl (Fentanyl 12 Mcg/Hr Tdsy) 12 mcg TD Q3D@0900 [facility] Stop: 07/15/22 14:59 Last Admin: 07/13/22 09:43 Dose: 12 mcg Gabapentin (Gabapentin 300 Mg Cap) 300 mg PO HS [facility] Stop: 07/22/22 20:59 Last Admin: 07/14/22 21:37 Dose: 300 mg Promethazine HCl 12.5 mg/ (Sodium Chloride) 50.5 mls @ 202 mls/hr IV Q6H PRN PRN Reason: Nausea And Vomiting Stop: 07/31/22 18:15 Meropenem 500 mg/ Syringe 10 mls @ 2 mls/min IV Q24H [facility]; Protocol Stop: 07/21/22 23:59 Last Admin: 07/14/22 17:32 Dose: 2 mls/min Sodium Chloride (Nss 1000ml) 1,000 mls @ 0 mls/hr IV .Q0M PRN PRN Reason: For Hemodialysis Use ONLY Stop: 07/16/22 12:59 Insulin Aspart (Insulin Aspart Per Unit) 0 units SC ACHS [facility]; Protocol Stop: 07/16/22 11:29 Last Admin: 07/15/22 09:20 Dose: 17 units Insulin Glargine (Lantus Per Unit Charge) 14 units SQ BID [facility]; Protocol Stop: 08/14/22 10:14 Last Admin: 07/15/22 11:25 Dose: 14 units Latanoprost (Latanoprost 0.005% Op Soln 2.5 Ml Btl) 1 drops OPB [facility] Stop: 07/17/22 21:04 Last Admin: 07/14/22 21:18 Dose: 1 drops Lorazepam (Lorazepam 0.5 Mg Tab) 0.5 mg PO TID PRN PRN Reason: Anxiety Stop: 08/05/22 05:54 Last Admin: 07/15/22 09:26 Dose: 0.5 mg Miscellaneous (Fentanyl Patch Remove & Waste) 1 each N/A Q3D@0859 [facility] Stop: 07/31/22 14:58 Last Admin: 07/13/22 09:46 Dose: 1 each Miscellaneous (Check Fentanyl Patch Placement) 1 each N/A QS [facility] Stop: 07/31/22 15:59 Last Admin: 07/15/22 08:45 Dose: 1 each Nitroglycerin (Nitroglycerin Sl 0.4 Mg/Tab Tab) 0.4 mg SL PRN PRN PRN Reason: Chest Pain Stop: 07/15/22 18:44 Ropinirole HCl (Ropinirole Hcl 0.25 Mg Tablet) 0.25 mg PO HS [facility] Stop: 07/15/22 20:59 Last Admin: 07/14/22 21:37 Dose: 0.25 mg Warfarin Sodium (Warfarin Sod 1 Mg Tab) 1 mg PO DAILY@1600 [facility] Stop: 07/26/22 15:59 Last Admin: 07/14/22 16:05 Dose: 1 mg
[2022-07-15] MEDS: ACETIC ACID 0.25% IRRIG SOLN 1000 ML PLCT IR SCH (17:56)
[2022-07-15] MEDS: COLLAGENASE OINT 30 GM TUBE EXT SCH (17:56)
[2022-07-15] MEDS: WARFARIN SOD 1 MG TAB PO SCH (18:06)
[2022-07-15] MEDS: MEROPENEM 500 MG in SYRINGE 0 ML IV SCH (18:41)
[2022-07-15] MEDS: GABAPENTIN 300 MG CAP PO SCH (21:58)
[2022-07-15] MEDS: LATANOPROST 0.005% OP SOLN 2.5 ML BTL OPB SCH (21:58)
[2022-07-15] MEDS: BRIMONIDINE TARTRATE 0.2% 5ML OPB SCH (21:58)
[2022-07-15] MEDS: rOPINIRole HCL 0.25 MG TABLET PO SCH (22:57)
[2022-07-16] MEDS: CHECK fentaNYL PATCH PLACEMENT SCH ×3 (00:23→16:32)
[2022-07-16] MEDS: HYDROCODONE/ACETAMOPHEN 5/325MG TAB PO PRN ×2 (01:58→14:23)
[2022-07-16] MEDS ORDERED: SODIUM CHLORIDE 0.9% 1000ML 1,000 ML IV PRN (07:00)
[2022-07-16] MEDS: INSULIN ASPART PER UNIT SC SCH ×2 (07:37→21:45)
[2022-07-16] MEDS: DOCUSATE SODIUM 100 MG CAP PO SCH ×2 (07:41→21:47)
[2022-07-16] MEDS: COLLAGENASE OINT 30 GM TUBE EXT SCH (07:41)
[2022-07-16] MEDS: ACETIC ACID 0.25% IRRIG SOLN 1000 ML PLCT IR SCH (07:41)
[2022-07-16] MEDS ORDERED: EPOETIN ALFA 20,000 UNITS/ML VIAL IV SCH (08:00)
[2022-07-16] MEDS ORDERED: MIDODRINE HCL 10 MG TAB PO ONE (08:04)
[2022-07-16] MEDS: LANTUS PER UNIT CHARGE SQ SCH ×2 (08:17→21:46)
[2022-07-16] MEDS: fentaNYL 12 MCG/HR TDSY TD SCH (08:34)
[2022-07-16] MEDS ORDERED: ACETIC ACID 0.25% IRRIG SOLN 1000 ML PLCT IR SCH (09:00)
[2022-07-16] MEDS ORDERED: COLLAGENASE OINT 30 GM TUBE EXT SCH (09:00)
[2022-07-16 10:14] LABS: Hematocrit (blood only) 27.9 % (34.1-44.9); Hemoglobin 8.5 g/dl (12.0-16.0); Mean Corpuscular Hemoglobin 32.1 pg (25.0-34.0); Mean Corpuscular Hgb Conc 30.5 g/dL (32.0-36.0); Mean Corpuscular Volume 105.3 fL (80.0-100.0); Mean Platelet Volume 10.8 fL (9.4-12.3); Platelet Count 215 K/uL (130-400); RDW Coefficient of Variation 21.2 % (11.5-14.5); RDW Standard Deviation 81.5 fL (36.4-46.3); Red Blood Count 2.65 M/uL (3.93-5.22); White Blood Count 8.34 K/ul (4.8-10.8)
[2022-07-16 10:18] LABS: INR 1.9 (0.9-1.1); Prothrombin Time 19.6 Seconds (9.0-12.0)
[2022-07-16 10:42] LABS: BUN Creatinine Ratio 14.5 (10-20); Calcium 8.5 mg/dl (8.5-10.1); Creatinine Clr Calc Pharmacy 16.7 ml/min; Est GFR (Non-African American) 14.7 ml/min; Magnesium 1.6 mg/dl (1.7-2.4); Phosphorus 4.8 mg/dl (2.5-4.9); Potassium 4.1 mmol/L (3.5-5.1)
--- NOTE | 2022-07-16 11:55 | Dialysis Progress Note ---
Date of Service July 16, 2022 Assessment & Plan Admission and Anticipated Discharge Date Admission Date: May 14, 2022 Subjective Assessment & Plan (1) End-stage renal disease (ESRD): Plan: HD today w/ goal 3 L off > with midodrine Much less edema than before. hard to take UF with super low BP. Supposed to go to [facility] in [place] today Subjective Pt seen on HD No fever, chills, shortness of breath, chest pain, dizziness, palpitations, nausea vomiting Has been thinking of withdrawing Tx , Review of Systems Review of Systems: NO sob Bilateral pedal edema , improved. Physical Exam Physical Exam: General Appearance: Comfortable, No apparent distress Head: normocephalic, Atraumatic Eyes: normal inspection, EOMI Neck: supple, Trachea midline Respiratory/Chest: Decreased breath sounds, CTA, No accessory muscle use Cardiovascular: S1, S2, No murmur Abdomen/GI:Soft, abd distended, Non tender, Bowel sounds present Extremities/Musculoskeletal:normal inspection, +3 B/L LE edema Neurologic/Psych:AAOX3, grossly no focal neurological deficits Skin: normal color, warm Results & Data ([facility]) Vital Signs (Past 12 Hours) Vital Signs Temp Pulse Pulse Pulse Resp BP BP 07/16/22 11:00 88 70/43 L 07/16/22 10:30 90 76/45 L 07/16/22 10:00 97 H 71/38 L 07/16/22 09:30 85 94/46 L 07/16/22 09:21 36.8 C 88 07/16/22 08:00 07/16/22 07:46 36.5 C 91 H 18 95/65 L Pulse Ox O2 Del Method O2 Flow Rate 07/16/22 11:00 07/16/22 10:30 07/16/22 10:00 07/16/22 09:30 07/16/22 09:21 07/16/22 08:00 Nasal Cannula 2 07/16/22 07:46 98 Room Air
[2022-07-16] MEDS: WARFARIN SOD 1 MG TAB PO SCH (16:32)
[2022-07-16] MEDS: MEROPENEM 500 MG in SYRINGE 0 ML IV SCH (17:27)
--- NOTE | 2022-07-16 19:47 | Hospitalist Progress Note ---
Date of Service July 16, 2022 Assessment & Plan (1) Sacral osteomyelitis: Plan: She has coccygeal osteomyelitis s/p diverting loop colostomy on 04/19/22 and I&D with coccygectomy on 04/20/22. She has a Stage IV sacral ulcer and a h/o rectal cancer s/p chemoradiation 20 yrs ago. She has had multiple surgical debridements this admission, and had a wound VAC placed but it was dislodged. Sacral wound grew Enterococcus VRE on 05/27/2022. A stage IV sacral ulcer is present with likely underlying osteomyelitis. She was on IV Dapto mycin cefepime and oral fluconazole. Hospitalist discussed with ID on 06/14 suggesting daptomycin for 3 more weeks. Notably given the extent of her sacral wound infection control is difficult. Plans for LTAC. She has completed daptomycin course at this time. Wound culture was repeated growing Pseudomonas and Prevotella. ID was reconsulted. She was started on cefepime 06/29/2022 which was changed to meropenem on 07/02/2022. Wound care is continued with daily dressing changes. Acetic acid washes were held on 07/12 for a break. Wound care nurse following. No further abx at this time per ID. Will remove US guided IV site now, also. Follow-up [facility] wound care very closely. (2) Ulcer of sacral region, stage 4: Plan: Plan as above. (3) PAF (paroxysmal atrial fibrillation): Plan: On amiodarone, INR is therapeutic on Coumadin. (4) Anemia: Plan: Anemia of chronic disease and CKD. Procrit per nephrology (5) End-stage renal disease (ESRD): Plan: Continues on hemodialysis, per nephro. (6) DM type 2 with diabetic peripheral neuropathy: Plan: Fasting glucose is consistently uncontrolled, increase glargine to twice daily. Continue NovoLog with sliding scale coverage and carb coverage. (7) Hypothyroid: Plan: Chronic, stable, continue Synthroid per home regimen. (8) DVT prophylaxis: Plan: Coumadin therapeutic DNR/DNI Disposition-LTAC in am. DO [facility] Admission and Anticipated Discharge Date Admission Date: May 14, 2022 Subjective 67-year-old female presented with sacral osteomyelitis No issues at this time Denies any pain Concerning wound culture from 07/12 with meropenem-resistant pseudomonas growing Spoke with ID today. Stopped Merrem Was going to be transferred to LTAC, however, no transport was available today. Plan to send her in am. Reviewed the care plan with her. Review of Systems Review of Systems: All systems reviewed negative except as indicated above. Physical Exam Physical Exam: CONSTITUTIONAL: obese, vitals as above, generally NAD EYES: normal conjunctivae, no scleral icterus ENT: external ear and nose normal, MMM NECK: trachea midline, RESPIRATORY: clear to auscultation bilaterally, no crackles, rales or wheezes, normal respiratory effort CARDIOVASCULAR: regular rate and rhythm, S1 and 2 heard without murmurs, gallops or rubs, no JVD, trace peripheral edema in bilateral lower extremities. CHEST: inspection of chest reveals a HD catheter in right anterior chest GASTROINTESTINAL: soft, nontender, ND, +colostomy MUSCULOSKELETAL: generalized weakness, head is normocephalic and atraumatic, SKIN: warm and dry, sacral ulcer viewed and imaged. Cavity extends over her whole glutes area and there is exposed bone of sacrum. Granulation tissue present and surrounding erythema near the necrotic tissue. NEUROLOGIC: CN 2-12 grossly intact, no sensory deficit, normal cognition, normal speech, no tremor PSYCHIATRIC: alert cooperative and oriented to person, place and time. Results & Data Results & Data [facility]) Vital Signs (Past 12 Hours) Vital Signs Temp Pulse Pulse Pulse Resp BP BP 07/16/22 16:45 36.9 C 91 H 89 18 111/74 07/16/22 13:30 36.9 C 89 07/16/22 13:00 91 H 80/46 L 07/16/22 12:30 85 72/43 L 07/16/22 12:00 88 83/42 L 07/16/22 11:30 85 73/39 L 07/16/22 11:00 88 70/43 L 07/16/22 10:30 90 76/45 L 07/16/22 10:00 97 H 71/38 L 07/16/22 09:30 85 94/46 L 07/16/22 09:21 36.8 C 88 07/16/22 08:00 07/16/22 07:46 36.5 C 91 H 18 BP Pulse Ox O2 Del Method O2 Flow Rate 07/16/22 16:45 92/46 L 98 07/16/22 13:30 92/46 L 07/16/22 13:00 07/16/22 12:30 07/16/22 12:00 07/16/22 11:30 07/16/22 11:00 07/16/22 10:30 07/16/22 10:00 07/16/22 09:30 07/16/22 09:21 07/16/22 08:00 Nasal Cannula 2 07/16/22 07:46 95/65 L 98 Room Air Laboratory Results Short CBC 07/16/22 Range/Units 09:36 WBC 8.34 (4.8-10.8) K/ul Hgb 8.5 L (12.0-16.0) g/dl Hct 27.9 L (34.1-44.9) % Plt Count 215 (130-400) K/uL BMP 07/16/22 09:36 Sodium 128 L Potassium 4.1 Chloride 95 L Carbon Dioxide 24 BUN 45 H Creatinine 3.11 H Glucose 168 H Calcium 8.5 Medications Administered Current Inpatient Medications Acetic Acid (Acetic Acid 0.25% Irrig Soln 1000 Ml Plct) 1 appln IR DAILY ROSA M Stop: 08/14/22 12:44 Last Admin: 07/16/22 07:41 Dose: 1 appln Brimonidine Tartrate (Brimonidine Tartrate 0.2% 5ml) 1 drops OPB HS ROSA M Stop: 07/30/22 23:39 Last Admin: 07/15/22 21:58 Dose: 1 drops Collagenase (Collagenase Oint 30 Gm Tube) 1 appln EXT DAILY ROSA M Stop: 08/14/22 12:44 Last Admin: 07/16/22 07:41 Dose: 1 appln Docusate Sodium (Docusate Sodium 100 Mg Cap) 100 mg PO BID ROSA M Stop: 07/31/22 14:44 Last Admin: 07/16/22 07:41 Dose: Not Given Fentanyl (Fentanyl 12 Mcg/Hr Tdsy) 12 mcg TD Q3D@0900 ROSA M Stop: 07/29/22 14:59 Last Admin: 07/16/22 08:34 Dose: 12 mcg Gabapentin (Gabapentin 300 Mg Cap) 300 mg PO HS ROSA M Stop: 07/22/22 20:59 Last Admin: 07/15/22 21:58 Dose: 300 mg Promethazine HCl 12.5 mg/ (Sodium Chloride) 50.5 mls @ 202 mls/hr IV Q6H PRN PRN Reason: Nausea And Vomiting Stop: 07/31/22 18:15 Insulin Aspart (Insulin Aspart Per Unit) 0 units SC ACHS [facility] Stop: 08/15/22 20:59 Insulin Glargine (Lantus Per Unit Charge) 14 units SQ BID [facility]; Protocol Stop: 08/14/22 10:14 Last Admin: 07/16/22 08:17 Dose: 14 units Latanoprost (Latanoprost 0.005% Op Soln 2.5 Ml Btl) 1 drops OPB HS [facility] Stop: 07/17/22 21:04 Last Admin: 07/15/22 21:58 Dose: 1 drops Levothyroxine Sodium (Levothyroxine Sodium 137 Mcg Tablet) 137 mcg PO DAILYBB [facility] Stop: 08/16/22 06:29 Lorazepam (Lorazepam 0.5 Mg Tab) 0.5 mg PO TID PRN PRN Reason: Anxiety Stop: 08/05/22 05:54 Last Admin: 07/15/22 16:13 Dose: 0.5 mg Miscellaneous (Fentanyl Patch Remove & Waste) 1 each N/A Q3D@0859 [facility] Stop: 07/31/22 14:58 Last Admin: 07/16/22 08:20 Dose: 1 each Miscellaneous (Check Fentanyl Patch Placement) 1 each N/A QS [facility] Stop: 07/31/22 15:59 Last Admin: 07/16/22 16:32 Dose: 1 each Ropinirole HCl (Ropinirole Hcl 0.25 Mg Tablet) 0.25 mg PO HS [facility] Stop: 08/14/22 21:54 Last Admin: 07/15/22 22:57 Dose: Not Given Warfarin Sodium (Warfarin Sod 1 Mg Tab) 1 mg PO DAILY@1600 [facility] Stop: 07/26/22 15:59 Last Admin: 07/16/22 16:32 Dose: 1 mg
[2022-07-16] MEDS: LATANOPROST 0.005% OP SOLN 2.5 ML BTL OPB SCH (21:46)
[2022-07-16] MEDS: GABAPENTIN 300 MG CAP PO SCH (21:47)
[2022-07-16] MEDS: rOPINIRole HCL 0.25 MG TABLET PO SCH (21:47)
[2022-07-16] MEDS: BRIMONIDINE TARTRATE 0.2% 5ML OPB SCH (21:47)
[2022-07-17] MEDS: CHECK fentaNYL PATCH PLACEMENT SCH ×2 (02:23→09:21)
[2022-07-17] MEDS ORDERED: LEVOTHYROXINE SODIUM 137 MCG TABLET PO SCH (06:30)
--- NOTE | 2022-07-17 09:01 | Discharge Summary ---
Discharge Summary Date of Service July 17, 2022 Principal Dx & Hospital Course #1 = Principal Diagnosis (1) Sacral osteomyelitis: She has coccygeal osteomyelitis s/p diverting loop colostomy on 04/19/22 and I&D with coccygectomy on 04/20/22. She has a Stage IV sacral ulcer and a h/o rectal cancer s/p chemoradiation 20 yrs ago. She has had multiple surgical debridements this admission, and had a wound VAC placed but it was dislodged. Sacral wound grew Enterococcus VRE on 05/27/2022. A stage IV sacral ulcer is present with likely underlying osteomyelitis. She was on IV Dapto mycin cefepime and oral fluconazole. Hospitalist discussed with ID on 06/14 suggesting daptomycin for 3 more weeks. Notably given the extent of her sacral wound infection control is difficult. Plans for LTAC. She has completed daptomycin course at this time. Wound culture was repeated growing Pseudomonas and Prevotella. ID was reconsulted. She was started on cefepime 06/29/2022 which was changed to meropenem on 07/02/2022. Wound care is continued with daily dressing changes. Acetic acid washes were held on 07/12 for a break. Wound care nurse following. No further abx at this time per ID. Will remove US guided IV site now, also. Follow-up [facility] wound care very closely. (2) Ulcer of sacral region, stage 4: Plan as above. (3) PAF (paroxysmal atrial fibrillation): On amiodarone, INR is therapeutic on Coumadin. (4) Anemia: Anemia of chronic disease and CKD. Procrit per nephrology (5) End-stage renal disease (ESRD): Continues on hemodialysis, per nephro. (6) DM type 2 with diabetic peripheral neuropathy: Fasting glucose is consistently uncontrolled, increase glargine to twice daily. Continue NovoLog with sliding scale coverage and carb coverage. (7) Hypothyroid: Chronic, stable, continue Synthroid per home regimen. (8) DVT prophylaxis: Coumadin therapeutic DNR/DNI Disposition-[facility] am. [facility] Discharge Exam CONSTITUTIONAL: obese, vitals as above, generally NAD EYES: normal conjunctivae, no scleral icterus ENT: external ear and nose normal, MMM NECK: trachea midline, RESPIRATORY: clear to auscultation bilaterally, no crackles, rales or wheezes, normal respiratory effort CARDIOVASCULAR: regular rate and rhythm, S1 and 2 heard without murmurs, gallops or rubs, no JVD, trace peripheral edema in bilateral lower extremities. CHEST: inspection of chest reveals a HD catheter in right anterior chest GASTROINTESTINAL: soft, nontender, ND, +colostomy MUSCULOSKELETAL: generalized weakness, head is normocephalic and atraumatic, SKIN: warm and dry, sacral ulcer viewed and imaged. Cavity extends over her whole glutes area and there is exposed bone of sacrum. Granulation tissue present and surrounding erythema near the necrotic tissue. NEUROLOGIC: CN 2-12 grossly intact, no sensory deficit, normal cognition, normal speech, no tremor PSYCHIATRIC: alert cooperative and oriented to person, place and time. Updated Medication List Medication Instructions Recorded Confirmed Type atorvastatin 40 mg tablet 40 mg PO QAM 05/14/22 05/14/22 History brimonidine 0.2 %-timolol 0.5 % 1 drp OPB [facility] 05/14/22 05/14/22 History eye drops furosemide 20 mg tablet (Lasix) 20 mg PO QAM 05/14/22 05/14/22 History gabapentin 300 mg capsule 300 mg PO HS 05/14/22 05/14/22 History hydroxyzine HCl 25 mg tablet 25 mg PO Q6 PRN Anxiety 05/14/22 05/14/22 History latanoprost 0.005 % eye drops 1 drp OPB HS 05/14/22 05/14/22 History levothyroxine 137 mcg tablet 137 mcg PO DAILY 05/14/22 05/14/22 History loperamide 2 mg capsule 2 mg PO DIRECTED PRN Diarrhea 05/14/22 05/14/22 History midodrine 5 mg tablet 5 mg PO TID 05/14/22 05/14/22 History nitroglycerin 0.4 mg sublingual 0.4 mg sublingual DIRECTED PRN 05/14/22 05/14/22 History tablet (Nitrostat) Chest Pain ondansetron HCl 4 mg tablet 4 mg PO DIRECTED PRN Nausea 05/14/22 05/14/22 History pantoprazole 40 mg tablet,delayed 40 mg PO DAILY 05/14/22 05/14/22 History release ropinirole 0.25 mg tablet 0.25 mg PO HS 05/14/22 05/14/22 History sodium hypochlorite 0.25 % solution 1 applic topical DAILY 05/14/22 05/14/22 History triamcinolone acetonide 0.1 % 1 applic topical DIRECTED 05/14/22 05/14/22 History topical cream docusate sodium 100 mg capsule 100 mg PO BID #60 caps 07/16/22 Rx fentanyl 12 mcg/hr transdermal 12 mcg transdermal Q3D@0900 #5 ea 07/16/22 Rx patch hydrocodone 5 mg-acetaminophen 325 1 tab PO Q6H PRN pain #10 tabs 07/16/22 Rx mg tablet insulin aspart U-100 100 unit/mL 5 unit (0.05 mL) subcut AC #15 mL 07/16/22 05/14/22 Rx (3 mL) subcutaneous pen (Novolog Flexpen U-100 Insulin aspart) insulin glargine 100 unit/mL (3 30 unit (0.3 mL) subcut QAM #15 mL 07/16/22 05/14/22 Rx mL) subcutaneous pen (Basaglar KwikPen U-100 Insulin) warfarin 1 mg tablet (Jantoven) 1 mg PO DAILY@1600 #30 tabs 07/16/22 Rx Hospital Stay Data Consultations 05/14/22 16:18 ED Decision to Admit Stat 05/14/22 16:35 Consult General Surgery Stat 05/14/22 18:25 Consult Nephrology Routine 05/16/22 07:35 Consult Cardiology Routine 05/16/22 18:04 Consult Palliative Care Routine 05/17/22 08:11 Consult Cardiology Stat 05/17/22 10:09 Consult Superintendent Schools Routine 05/20/22 08:37 Consult Infectious Diseases Routine 05/25/22 11:26 Consult Psychiatry Routine 06/04/22 15:50 Consult Patient Services Routine 06/13/22 11:36 Consult Infectious Diseases Routine 06/21/22 16:40 Consult Pain Management Routine 06/29/22 08:00 Consult Plastic Surgery Routine 06/29/22 10:26 Consult Infectious Diseases Routine 06/29/22 11:06 Consult Nutrition Stat Procedures Performed Operation Date: 05/18/22 07:15 <No data on this case meets the specified criteria> Operation Date: 05/20/22 11:40 <No data on this case meets the specified criteria> Operation Date: 05/27/22 12:45 Actual Procedures p Debridement of Sacral Ulcer with Bone Biopsy(Not Applicable) - Shawn Baldwin MD, FACS Operation Date: 06/10/22 09:25 Actual Procedures p Debridement of Sacral Ulceration(Not Applicable) - Shawn Baldwin MD, FACS Diagnostic Imagining Performed 05/14/22 14:58 CT abd pelvis wo con Stat 06/19/22 15:14 CT head/brain wo con Stat Pending Results Patient Have Any Pending Studies at Discharge: No Discharge Instructions Given to Patient (Per Discharging Provider) Please take all medications as instructed on discharge list below. Please follow-up with wound care for very close monitoring of this wound. Your antibiotics were stopped on 07/16, however, there is a very high risk of this becoming infected again. Please follow-up with your primary care physician as soon as able to touch base after hospital discharge and review all medications, monitor your wound and chronic medical issues. It was a pleasure taking care of you! Please call if you have any questions or problems. You can reach a [facility] hospitalist on duty at [facility] 24 hours a day by calling [phone]. Take care of yourself. Anabel Escobar, DO [facility] Hospitalist
[2022-07-17] MEDS: COLLAGENASE OINT 30 GM TUBE EXT SCH (09:22)
[2022-07-17] MEDS: INSULIN ASPART PER UNIT SC SCH (09:27)
[2022-07-17] MEDS: DOCUSATE SODIUM 100 MG CAP PO SCH (09:28)
[2022-07-17] MEDS: LANTUS PER UNIT CHARGE SQ SCH (09:28)
== END 2022-07-17 10:58 | DRG 853 ==
LOC: ED 14:21 → SUATTDRO 18:21 → 2S 18:21 → 1E 05-17 09:26 → 2S 05-23 13:45 → 3N 07-02 18:12